=== PATIENT | male | born 1980 | race Caucasian/White ===

== ENCOUNTER 2024-11-11 08:54 | Inpatient (IN) | payer MEDICARE, MEDICAID, SELFPAY ==
[2024-11-11] VITALS (55 sets, daily range): BP systolic 157–197; BP diastolic 72–95; PULSE 66–79; RESP 10–21; TEMP 36.1–36.8; O2SAT 93–100; BMI 30.8
--- NOTE | ~2024-11-11 | XR_ITS ---
Portable chest x-ray Comparison: None Clinical History: End-stage renal disease Findings: Lungs are clear, without focal consolidation or pleural effusion. Cardiomediastinal silho uette is borderline enlarged. Bones and soft tissues are unremarkable. Impression: Clear lungs. Reviewed, dictated and finalized at location . Impression: Clear lungs.
--- NOTE | ~2024-11-11 | XR_ITS ---
Exam: Abdomen 1V HISTORY: Diarrhea COMPARISON: None. TECHNIQUE: Supine images of the abdomen FINDINGS: Bowel gas pattern is nonspecific and non-obstructive. There is no free air or deep sulci. No pathologic calcifications are seen. Lung bases are unremarkable. Bones and soft tissues are unremarkable. IMPRESSION: Nonspecific, nonobstructive bowel gas pattern. Reviewed, dictated and finalized at location A.
--- OUTSIDE RECORDS SUMMARY | 2024-11-11 09:31 | XMS_ITS | CONTINUITY OF CARE DOCUMENT ---
Author Name shant bran Address Unknown Organization [facility] Address [address] [facility] [address] [place] [address] Phone [phone] Care Team Providers Care Search Engineer Name Role Phone Castillo LOCK, Fredi Unavailable Rian Paris MD Unavailable [phone] Dallas Tejada MD Unavailable PROBLEMS Condition Status Date Provider Notes Cardiology examination active Fredi Chong MD Preoperative cardiovascular examination active Fredi Chong MD ESRD on HD. M-W-F Dr Paris active Fredi jama MD Carotid bruit, left active Fredi Chong MD Heart murmur active Fredi Chong MD Mitral regurgitation, moderate active Fredi Chnog MD Tricuspid regurgitation, moderate active Us garry Chong MD ENCOUNTERS Date Type Provider Location Encounter Diag nosis - In-person encounter Office Visit Fredi Chong MD [facility] Mitral regurgitation, moderateTricuspid regurgitation, moderate - In-person encounter Office Visit Fredi Chong MD [facility] Heart murmur - In-person encounter Office Visit Fredi Chong MD [facility] Cardiology examinationPreoperative cardiovascular examinationESRD on HD. M-W-F Dr ParisCarotid bruit, left VITAL SIGNS Date Observation Value Provider Body Mass Index (Ratio) 31.33 kg/m2 Heath Chong MD blood pressure, diastolic 87 mm[Hg] Kristian Hanks blood pressure, systolic 160 mm[Hg] Juju Hanks blood pressure, cuff size regular Cy aleena Hanks respiratory rate E&M 16 /min Cait Hanks pulse rate 88 /min Cait nash oxygen saturation, oximetry 97 % Cait Hanks weight E&M 231 [lb_av] Cait nash height E&M 72 [in_i] Cait nash Body Mass Index (Ratio) 30.92 kg/m2 Heath Chong MD blood pressure, resting Yes More hermanval Holloway pulse rate 98 /min Katt Block blood pressure, diastolic 70 mm[Hg] Br ittany Jewel blood pressure, systolic 118 mm[Hg] Rowan ttany Jewel oxygen saturation, oximetry 98 % Katt Holloway height E&M 72 [in_i] Katt Block weight E&M 228 [lb_av] Katt Block respiratory rate E&M 16 /min Nataly Holloway ALLERGIES No Known Drug Allergies HISTORY OF MEDICATION USE Medication Status Instructions Dates Provider Indications Com ments ACETAMINOPHEN-C ODEINE #3 300-30 MG ORAL TABLET active TK 1 T Q 6 H PRN P Katt Block #60, 15 days supply, Prescribed by SARAH LLANES, Filled 05/15/2019 FUROSEMIDE 80 MG ORAL TABLET active 1 tab daily Katt Block #90, 30 days supply, Filled 06/20/2019 LIDOCAINE-PRILO KENNETH 2.5-2.5 % EXTERNAL CREAM active APPLY TO AV FISTULA BEFORE EACH DIALYSIS Katt Block #30, 15 days supply, Prescribed by SARAH LLANES, Filled 06/24/2019 VITAMIN D (ERGOCALCIFEROL ) 1.25 MG (53535 UT) ORAL CAPSULE active TK 1 C PO 1 TIME A WK Katt Block #4, 28 days supply, Prescribed by RIAN PARIS, Filled 06/29/2019 HYDRALAZINE HCL 50 MG ORAL TABLET active TK 1 T PO TID Katt Block #90, 30 days supply, Prescribed by RIAN PARIS, Filled 07/01/2019 GLIMEPIRIDE 1 MG ORAL TABLET completed TK 1 T PO D - Cait Hanks #30, 30 days supply, Prescribed by RIAN PARIS, Filled 07/01/2019 FUROSEMIDE 40 MG ORAL TABLET active TK 2 TS PO QD Katt Block #60, 30 days supply, Prescribed by RIAN PARIS, Filled 07/01/2019 AMLODIPINE BESYLATE 10 MG ORAL TABLET active TK 1 T PO QPM Katt Block #30, 30 days supply, Prescribed by RIAN PARIS, Filled 07/01/2019 SOCIAL HISTORY Date Observation Value Provider drug use no Fredi Chong MD alcohol use no Fredi Chong MD social history E&M S moking History: Cheryl brown has never smoked. Fredi Chong MD social history reviewed E&M revi ewed - no changes required Fredi Chong MD smoking status Never smoker Fredi Chong MD number of grandchildren Fredi Chong MD U meena Chong MD social history E&M S moking History: Cheryl brown has never smoked. Fredi Chong MD social history reviewed E&M revi ewed - no changes required Fredi Chong MD smoking status Never smoker Cait barron drug use no Fredi Chong MD social history E&M S moking History: Cheryl brown has never smoked. Fredi Chong MD social history reviewed E&M revi ewed - no changes required Fredi Chong MD alcohol use no Katt Holloway smoking status Never smoker Katt billingsley FAMILY HISTORY Family Member Condition Father Family History of Co ngestive Heart Failure: Mother Family History of Co ronary Artery Disease: INSURANCE PROVIDERS Payer name Policy type / Coverage type Dariel red green party ID ROBBY MEDICARE Medicare [id number] [facility] Medicaid 3 [id number] ADVANCE DIRECTIVES Name Date DISCUSSED - NO DECISION MADE TREATMENT PLAN Date Name Performer Cardiology Fredi Chong MD Cardiology:Echo from 03/15/2020 demonstrates a severly enlarged left atrium. Mild-mod TR, MR. LVEF 50%. Murmur is most likely a combination of mitral and tricuspid regurg, have recommended he let us know if he has any changes in breathing and will see him in one year and complete echo. Fredi Chong MD Cardiology:Dialysis Per Dr. Thaddeus gay. Fredi Chong MD Cardiology follow up Fredi phipps MD Cardiology follow up :2/6 systolic ejection murmur, louder on left side. Patient has not been expreiencing symptoms. Will check echo to evaluate Fredi Chong MD Cardiology:Will check carotid US . Fredi Chong MD Cardiology Fredi Chong MD Cardiology:He is asy mptomatic from a cardiac standpoint and i will check an echo or get his latest report H e is clear for surgery l ow risk Fredi Chong MD Date Name Complete Echo Complete Echo Carotid Duplex Bilat eral HISTORY OF PROCEDURES Procedure Date Procedure Name Provider Procedure Notes S tatus EKG Fredi Chong MD completed
--- OUTSIDE RECORDS SUMMARY | 2024-11-11 09:31 | XMS_ITS | Continuity of Care Document ---
Author Organization [facility] Address [address] [place] [address] Phone Care Team Providers Care Stationary Fireman Name Role Phone Rodriguez OD, Jostin Unavailable Unavailable Procedures Procedure Date Office/outpatient Visit, Est Remove Foreign Body From Eye Advance Directives Directive Yes / No Effective Date File Name No Information Encounters Encounter Description Practice Location Reason(s) For Visit Diagnoses Date Provider Providers Copied on Encounter Office/outpat ient Visit, Est [facility], [address] [place] [address] [address], [place], [place], [address], [place] tel:[phone] SEC [facility] No Information 0-200 7 Rodriguez OD Jostin. [address] [facility] , [address], [place], [address], [place]. tel:[phone] [facility], [address] [place] [address] [address], [place], [place], [address], [place] tel:[phone] SEC [facility] No Information 7-200 7 Son Chapman. [address] [facility], [address], [place], [place], [address], [place]. tel:[phone] Family History Family Member Type Diagnosis Age [...]
[2024-11-11 11:26] LABS: Basophils Percent Auto 0.4 % (0.2-1.2); Eosinophils Absolute Auto 0.2 K/mm3 (0-0.3); Eosinophils Percent Auto 2.8 % (0-4.4); Hematocrit 27.9 % (42.0-52.0); Hemoglobin 9.1 g/dL (14.0-18.0); Immature Granulocyte Absolute 0.02 K/mm3 (0.00-0.031); Immature Granulocyte Percent A 0.3 % (0-0.5); Lymphocytes Absolute Auto 0.54 K/mm3 (0.9-3.2); Lymphocytes Percent Auto 8.1 % (18.3-44.2); Mean Corpuscular HGB Conc 32.6 g/dl (32-36); Mean Corpuscular Hemoglobin 33.5 pg (26-34); Mean Corpuscular Volume 102.6 fl (80-100); Mean Platelet Volume 9.4 fl (7.4-10.4); Monocytes Absolute Auto 0.5 K/mm3 (0.1-0.6); Monocytes Percent Auto 7.5 % (2.6-8.5); Neutrophils Absolute Auto 5.4 K/mm3 (1.3-6.7); Neutrophils Percent Auto 80.9 % (45.5-73.1); Platelet Count Result 110 k/mm3 (150-375); Red Blood Count 2.72 M/mm3 (4.6-6.20); Red Cell Distribution Width 14.1 % (11.5-14.5); White Blood Count 6.7 K/mm3 (4.5-10.0)
--- NOTE | 2024-11-11 11:37 | ED_ITS ---
HPI - Nausea/Vomiting/Diarrhea General Chief complaint: Nausea/Vomiting/Diarrhea Stated complaint: diarrhea Time Seen by Provider: 11/11/24 11:29 Source: patient and family Mode of arrival: ambulatory Limitations: no limitations History of Present Illness HPI Narrative: 44 YEARS OLD WHITE MALE CAME TO THE ED FROM HOME BY PRIVATE CAR COMPLAINING OF MASSIVE DIARRHEA DAILY FOR THE LAST 3 DAYS. HE DENIES ANY FEVER, CHILLS, NAUSEA, VOMITING, ABDOMINAL PAIN, CHEST PAIN, SHORTNESS OF BREATH OR BACK PAIN. PATIENT MISSED DIALYSIS ON SATURDAY AND TODAY. DID NOT TAKE HIS BLOOD PRESSURE MEDICATION TODAY. Related Data Allergies Allergy/AdvReac Type Severity Reaction Status Date / Time No Known Allergies Allergy Verified 11/11/24 11:20 Review of Systems 2 Review of Systems: All systems reviewed & are unremarkable except as noted in HPI and below Course Consultations Consultation #1: DR DUARTE Date: 11/11/24 Time: 14:40 Vital Signs Vital signs: Vital Signs Temperature 36.1 C L 11/11/24 08:55 Pulse Rate 75 11/11/24 08:55 Respiratory Rate 18 11/11/24 08:55 Blood Pressure 157/72 H 11/11/24 08:55 Pulse Oximetry 99 11/11/24 08:55 Oxygen Delivery Room Air 11/11/24 08:55 Temperature 36.1 C L 11/11/24 08:55 Pulse Rate 75 11/11/24 14:43 Respiratory Rate 13 11/11/24 14:43 Blood Pressure 179/84 H 11/11/24 14:43 Pulse Oximetry 100 11/11/24 14:43 Oxygen Delivery Room Air 11/11/24 11:16 MDM - Nausea/Vomiting/Diarrhea MDM Narrative Medical decision making narrative: PATIENT CAME TO THE ED WITH MASSIVE DIARRHEA OVER THE LAST 3 DAYS. MISSED DIALYSIS TODAY AND THE PREVIOUS ONE 2 DAYS AGO. VITAL SIGNS STABLE PHYSICAL EXAMINATION SHOWING GENERALIZE WEAK, PALE PATIENT WITH 3+ EDEMA LOWER EXTREMITY BILATERALLY DIALYSIS SHUNT LEFT ARM DIFFERENTIAL DIAGNOSIS INCLUDE DEHYDRATION, ELECTROLYTE IMBALANCE, UNSPECIFIED DIARRHEA. BLOOD WORKUP INCLUDES CBC, CMP SHOWED HEMOGLOBIN 9.1, PLATELET 110, POTASSIUM 5.1, BICARB 18, ANION GAP 24, BUN 71, CREATININE MORE THAN 14, LIPASE 17. DIAGNOSIS: UNSPECIFIED DIARRHEA, MISSED DIALYSIS ADMIT TO HOSPITALIST DISCUSSED WITH DR. DUARTE Differential Diagnosis Differential diagnosis: Likely other ( ABOVE) Medical Records Attestation: I reviewed the patient's medical records. Lab Data Attestation: I reviewed the patient's lab results. 11/11/24 11:15 11/11/24 11:15 Labs: Lab Results 11/11/24 Range/Units 11:15 WBC 6.7 (4.5-10.0) K/mm3 RBC 2.72 L (4.6-6.20) M/mm3 Hgb 9.1 L (14.0-18.0) g/dL Hct 27.9 L (42.0-52.0) % MCV 102.6 H (80-100) fl MCH 33.5 (26-34) pg MCHC 32.6 (32-36) g/dl RDW 14.1 (11.5-14.5) % Plt Count 110 L (150-375) k/mm3 MPV 9.4 (7.4-10.4) fl Immature Gran % (Auto) 0.3 (0-0.5) % Neut % (Auto) 80.9 H (45.5-73.1) % Lymph % (Auto) 8.1 L (18.3-44.2) % [place] % (Auto) 7.5 (2.6-8.5) % Eos % (Auto) 2.8 (0-4.4) % Baso % (Auto) 0.4 (0.2-1.2) % Lymph # (Auto) 0.54 L (0.9-3.2) K/mm3 [place] # (Auto) 0.5 (0.1-0.6) K/mm3 Eos # (Auto) 0.2 (0-0.3) K/mm3 Baso # (Auto) 0.0 (0.0-0.1) K/mm3 Abs Immat Gran (auto) 0.02 (0.00-0.031) K/mm3 Absolute Neuts (auto) 5.4 (1.3-6.7) K/mm3 Absolute Nucleated RBC 0.000 (0.0-0.012) K/mm3 Nucleated RBC % 0.0 (0.0-0.2) % Sodium 136 L (137-145) mmol/L Potassium 5.1 H (3.4-5.0) mmol/L Chloride 94 L (98-107) mmol/L Carbon Dioxide 18 L (22-30) mmol/L Anion Gap 24 H (4-12) mmol/L BUN 71 H (9-20) mg/dL Creatinine > 14.00 H (0.7-1.3) mg/dL Estim Creat Clear Calc 8 ml/min Estimated GFR 4 L (59 - ) Glucose 87 (65-110) mg/dL Calcium 9.6 (8.4-10.2) mg/dL Total Bilirubin 0.4 (0.2-1.3) mg/dL AST 17 (17-59) U/L ALT 18 (6-50) U/L Alkaline Phosphatase 96 (38-126) U/L Total Protein 8.0 (6.3-8.2) g/dL Albumin 4.8 (3.5-5.1) g/dL Lipase 17 L (23-300) U/L Critical Care Time Critical Care Time Critical Care Time: No Discharge Plan Discharge Clinical Impression: Diarrhea, Hemodialysis patient, Missed dialysis Patient Disposition: Still a Patient Condition: Guarded Prognosis Patient Language: Portuguese Follow-up/Referrals: Sissy,Micah Webber MD [Non-Staff] -
[2024-11-11 13:01] LABS: Alanine Aminotransferase 18 U/L (6-50); Albumin Level 4.8 g/dL (3.5-5.1); Alkaline Phosphatase 96 U/L (38-126); Anion Gap 24 mmol/L (4-12); Aspartate Amino Transferase 17 U/L (17-59); Bilirubin,Total 0.4 mg/dL (0.2-1.3); Blood Urea Nitrogen 71 mg/dL (9-20); Calcium 9.6 mg/dL (8.4-10.2); Carbon Dioxide 18 mmol/L (22-30); Chloride 94 mmol/L (98-107); Estimated CRCL calculation 8 ml/min; Estimated Glomerular Filt Rate 4; Glucose 87 mg/dL (65-110); Lipase 17 U/L (23-300); Potassium 5.1 mmol/L (3.4-5.0); Sodium 136 mmol/L (137-145)
--- OUTSIDE RECORDS SUMMARY | 2024-11-11 13:47 | XMS_ITS | Continuity of Care Document ---
Author Organization formerly [facility] Address [address] [facility] [address] [facility] [address] [place] [address] Phone Care Team Providers Care Physician Assistant Psychiatry Name Role Phone Rodriguez OD, Jostin Unavailable Unavailable Procedures Procedure Date Office/outpatient Visit, Est Remove Foreign Body From Eye Advance Directives Directive Yes / No Effective Date File Name No Information Encounters Encounter Description Practice Location Reason(s) For Visit Diagnoses Date Provider Providers Copied on Encounter Office/outpat ient Visit, Est [facility], [address] [place] [address] [address], [place], [place], [address], [place] tel:[phone] SEC [facility] No Information 0-200 7 Rodriguez OD Jostin. [address] [facility] , [address], [place], [address], [place]. tel:[phone] [facility], [address] [place] [address] [address], [place], [place], [address], [place] tel:[phone] SEC [facility] No Information 7-200 7 Son Chapman. [address] [facility], [address], [place], [place], [address], [place]. tel:[phone] Family History Family Member Type Diagnosis Age At Onset No Information Payers Payer name Insurance type Covered green party ID Authoriza tion(s) No Information Social [...]
--- OUTSIDE RECORDS SUMMARY | 2024-11-11 13:47 | XMS_ITS | Encounter Summary ---
Author Organization [facility] Health Address [address] [place] [address] Care Team Providers Care Retail Agent Name Role Phone Dallas Tejada MD Primary Care Provider [phone] Naomi Kaye MD Unavailable Dallas Tejada MD Unavailable [phone] Encounter Details Date Type Department Care Team (Late Contact Info) Description 02/09/2019 [facility] [address] [place] [address] [place] [address] [facility] [address] [place] [address] Social History Tobacco Use Types Packs/Day Years Used Date Smoking Tobacco: Former Cigarettes Q uit: 02/09/2018 Smokeless Tobacco: Never Alcohol Use Standard Drinks/Week Comments No 0 (1 standard drink = 0.6 oz pur e alcohol) Sex and Gender Information Value Date Recorded Sex Assigned at Not on file Legal Sex Male 1:41 PM CDT Gender Identity Not on file Sexual Orientation Not on file documented as of this encounter Plan of Treatment Upcoming Encounters Date Type Department Care Team (Late Contact Info) Description 05/25/2025 2:15 PM [employer]ER [employer] SPECIALIST Appointment [facility] Health Vascular Services [address] [facility], [address] [place] [address] documented as of this encounter Visit Diagnoses Not on filedocumented in this encounter Care Teams Retail Agent Relationship Specialty Start Date End Date Dallas Tejada MD [address] [facility] [address] [place] [address] PCP - General Internal Medicine 02/18/19 Naomi Kaye MD [address] [facility] [address] [place] [address] PCP - [facility] 07/22/24 10/19/24 Dallas Tejada MD [address] [facility] [address] [place] [address] PCP - [facility] 10/20/24 documented as of this encounter
--- OUTSIDE RECORDS SUMMARY | 2024-11-11 13:47 | XMS_ITS | CONTINUITY OF CARE DOCUMENT ---
Author Name shant bran Address Unknown Organization [facility] Address [address] [facility] [address] [place] [address] Phone [phone] Care Team Providers Care Trolley Car Operator Name Role Phone Castillo LOCK, Fredi Unavailable [phone] Rian Paris MD Unavailable Dallas Tejada MD Unavailable PROBLEMS Condition Status Date Provider Notes Cardiology examination active Fredi Chong MD Preoperative cardiovascular examination active Fredi Chong MD ESRD on HD. M-W-F Dr Paris active Fredi jama MD Carotid bruit, left active Fredi Chong MD Heart murmur active Fredi Chong MD Mitral regurgitation, moderate active Fredi Chong MD Tricuspid regurgitation, moderate active Us garry Chong MD ENCOUNTERS Date Type Provider Location Encounter Diag nosis - In-person encounter Office Visit Fredi Chong MD [facility] Mitral regurgitation, moderateTricuspid regurgitation, moderate - In-person encounter Office Visit Fredi Chong MD [facility] Heart murmur - In-person encounter Office Visit Fredi Chong MD [facility] Cardiology examinationPreoperative cardiovascular examinationESRD on HD. [...] 06/24/2019 VITAMIN D (ERGOCALCIFEROL ) 1.25 MG (76404 UT) ORAL CAPSULE active TK 1 C [...] Policy type / Coverage type Dariel red democrat ID ROBBY MEDICARE Medicare [id number] [facility] Medicaid 3 [id number] ADVANCE DIRECTIVES Name Date DISCUSSED - NO [...]
--- OUTSIDE RECORDS SUMMARY | 2024-11-11 13:47 | XMS_ITS | Clinical Summary ---
Author Organization [facility] Address [address] [place] [address] Care Team Providers Care Warehouse Shipping Clerk Name Role Phone Dallas Tejada MD Primary Care Provider [phone] Dallas Tejada MD Unavailable [phone] Source Comments [facility],non-owned Affiliates and Associated Physician Practices is amultiple site organization consisting of ambulatory clinics and hospital sitesin [place], [place], [place] and [place]. This disclosure is being madepursuant to the Care Everywhere program and may not contain all information available regarding this patient. Last updated 18.[facility] Allergies No known active allergies Medications * Be aware that medications may not be up to date on this document. Alwaysverify current medications with the patient. hydrALAZINE (APRESOLINE) 50 MG tablet Take 1 (one) tablet by mouth 3 times daily Active acetaminophen (TYLENOL) 500 MG tablet Take 1 (one) tablet by mouth every 4 hours as needed for Fever or Pain Maximum allowable Acetaminophen amount = 4 Grams (4000 mg) / 24 hours. Active vitamin D, ergocalciferol, (DRISDOL) 42178 units capsule Receives at DU 3 04/01/20 19 Active furosemide (Lasix) 80 MG tablet Take 1 (one) tablet by mouth 2 times daily Active sevelamer carbonate (RENVELA) 800 MG Take 4 (four) tablets by mouth 3 times daily with meals 2 with snacks 11 05/20/20 19 Active polyethylene glycol 3350 (MIRALAX) 17 GM/SCOOP powder Acti ve cyclobenzaprine (FLEXERIL) 5 MG tablet Take 2 (two) tablets by mouth at bedtime Active amLODIPine (Norvasc) 10 MG tablet Take 1 (one) tablet by mouth once daily 02/24/20 22 Active clonazePAM (KlonoPIN) 0.5 MG tablet Take 1 (one) tablet by mouth at bedtime 07/07/20 21 Active midodrine (Proamatine) 5 MG tablet 03/21/20 22 Active rOPINIRole (Requip) 0.25 MG tablet Take 1 (one) tablet to 2 (two) tablets by mouth at bedtime 04/25/20 22 Active tamsulosin (Flomax) 0.4 MG capsule Take 1 (one) capsule by mouth at bedtime 04/27/20 22 Active polyethylene glycol (Golytely) 236 g solution Drink 1/2 of the bowel prep at 6 pm the night before test. Finish the prep at 5 am the morning of colonoscopy. 4000 mL 01/09/20 24 Active metoprolol succinate XL 24hr (Toprol XL) 25 MG tablet Take 0.5 (one-half) tablet by mouth once daily 45 tablet 3 02/27/20 24 Active rosuvastatin (Crestor) 10 MG tablet Take 1 (one) tablet by mouth at bedtime 90 tablet 3 02/27/20 24 Active blood glucose test stripIndications:Co ntrolled type 2 diabetes mellitus with chronic kidney disease on chronic dialysis, without long-term current use of insulin ([facility]),Grade II diastolic dysfunction,Nonobst ructive atherosclerosis of coronary artery,ESRD (end stage renal disease) ([facility]),Encounter regarding vascular access for dialysis for end-stage renal disease ([facility]),History of tobacco use,Pre-transplant evaluation for kidney transplant Use 1 (one) strip as directed 100 strip 3 05/12/20 24 Active lancetsIndications: 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, without long-term current use of insulin ([facility]),Grade II diastolic dysfunction,Nonobst ructive atherosclerosis of coronary artery,ESRD (end stage renal disease) ([facility]),Encounter regarding vascular access for dialysis for end-stage renal disease ([facility]),History of tobacco use,Pre-transplant evaluation for kidney transplant Use 1 (one) Each once daily 100 Each 05/12/20 24 Active aspirin (Aspirin) 81 MG chew tablet Take 1 (one) tablet by mouth once daily Active clopidogrel (plaVIX) 75 MG tablet Take 1 (one) tablet by mouth once daily 90 tablet 06/11/20 24 Active Active Problems Problem Noted Date Diagnosed Date S/P drug eluting coronary stent placement 2023 Coronary artery disease invo [place] coronary artery of [place] heart with angina pectoris 05/25/2024 Nonobstructive atherosclerosis of coronary arter y 02/27/2024 Diabetes mellitus type II, controlled 02/27/2024 History of tobacco use 02/27/2024 Left ventricular hypertrophy 02/27/2024 Grade II diastolic dysfunction 02/27/2024 Moderate tricuspid regurgitation 02/27/2024 Vitamin D deficiency 02/27/2024 Encounter regarding vascular access for dialysis for end-stage renal disease 05/27/2023 Pre-transplant evaluation for kidney transplant 07/30/2019 Overview (05/25/2024): Images from the original note were not included. Rj Cole 1980 Listing date: Referring Editorial Writer: Sharon Farnsworth Dialysis Info: Type: HD M,W,F Time: 03/10/2019 Blood Type: O POS Body mass index is 31.65 kg/m . ALERTS: pt will need FLOmax post txp ALERTS: pt has been using midodrine prn on dialysis this December - January 2024 (BPs requested) Social Work Nurse: pt seen by Dr. Donato on 05/12/2024 ESRD 2/2 DM2 and HTN Past Medical History: Diagnosis Date Anuria q3 days, very little/could fill up bottom of cup CHF (congestive heart failure) ([facility]) Coronary artery disease seen on [facility] completed here on 05/25/2020. 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, was on metformin x 1 week, diet controlled diarrhea Esophageal reflux ESRD on hemodialysis ([facility]) BEN ([facility]) [place] M, W, F 08/11/19 History of blood transfusion 2018 when found out kidney failure Hypertension dx at age 38 Kidney stones twice in his early 20s, passed on own Kidney trouble Neuropathy Oliguria PVD (peripheral vascular disease) ([facility]) c/o claudication sometimes but thinks it's [place] Past Surgical History: Procedure Laterality Date A-V FISTULA REVISION/REPAIR 04/23/2019 REVISE LEFT ARTERIOVENOUS WITH LIGATION OF BRANCHES UNDER ULTRASOUND GUIDANCE A-V SHUNT CREATION Left 02/23/2019 Left; LEFT UPPER ARM ARTERIOVENOUS FISTULA Cardiac Catherization 05/25/2020 transplant prep- no findings Cardiac Catherization N/A 04/27/2024 N/A; Left Heart Cath Cardiac Catherization N/A 04/27/2024 N/A; iFR COLONOSCOPY N/A 01/28/2024 N/A; COLONOSCOPY SCREEN--dialysis pt---stat k+ OTHER SURGERY all teeth removed Renal Biopsy 2018 [facility] [place] Retinal Detachment Repair Bilateral Social History Socioeconomic History Marital status: Single Spouse name: Not on file Number of children: Not on file Years of education: Not on file Highest education level: Not on file Occupational History Not on file Tobacco Use Smoking status: Former Types: Cigars Quit date: 02/09/2018 Years since quittin.2 Smokeless tobacco: Never Tobacco comments: a couple cigars on a weekend when he drank, denies being a heavy drinker, maybe only drank once a month, quit in 2017 Last cigar use beginning of November 2023 Vaping Use Vaping status: Never Used Substance and Sexual Activity Alcohol use: No Drug use: No Sexual activity: Not Currently Other Topics Concern Not on file Social History Narrative Not on file Social Determinants of Health Financial Resource Strain: Not on file Food Insecurity: Not on file Transportation Needs: Not on file Stress: Not on file Housing Stability: Not on file Transplant Surgery Clinic Appt w/: Dr. Machado Date: 01/21/2024 A/P: Introductory: is a 43 year old with T2DM as a primary cause of kidney disease and HTN is the secondary diagnosis. Dialysis was initiated in 03/10/2019. The patient has NOT had previous transplants. ABO is O POSITIVE (+). He HAS potential living donors. Medically, He is in FAIR condition. The cardiac workup is NOTcomplete. He denies angina, dyspnea, or orthopnea. Other significant medical history includes the following: HTN Obesity Family history is not significant for malignancy. Heconfirms he understands the risks and benefits of kidney transplantation and is amenable to proceeding with evaluation. Assessment/Plan: 43 yo man with T2DM as the etiology og ESRD on HE since 2019 HTN Mild calcifications of the iliac vessels will need additional imaging annually to assess for advancing vessel disease that renders him non-transplantable Complete all phases of the transplant evaluation Present to [facility] for approval/denial/ versus more testing to be done by the patient as determined by the Committee I spent 30 minutes with discussing the risks and benefits of kidney transplant including the need for lifelong immunotherapy, the need for the patient to be compliant with the immunotherapy, the need for a lifelong relationship with a health care provider and the need to have labs checked frequently. We also talked about the risks of surgery including but not limited to the following: Anesthetic concerns including heart attack, stroke, or Need for endotracheal intubation and possibility of prolonged intubation Intraoperative and postoperative bleeding Postoperative hematoma or wound infection requiring return to OR Renal artery and vein thrombosis requiring return to OR and possible explantation Ureteric stricture or leak requiring interventional procedures and/or reoperation Delayed graft function Risk of primary nonfunction Increased risk of infection and malignancy remotely We discussed the possibility of receiving an HCV+ organ. We discussed the antiviral treatment and need for compliance to achieve SVR; the cure rate of 98% with DAA and the possibility of repeating a course if not cured; and the possibility of complications prior to and while undergoing treatment. These include headaches, nausea, cryoglobulinemia and SAL, and encephalitis as well as possible hepatitis-induced injury to the graft. At this time the patient is amenable. We discussed the possibility of receiving an increased risk organ. We discussed the risk factors that place kidneys in this category and the relative risk of transmission from an increased risk donor. We compared that risk with the risk of remaining on dialysis and the risk of hepatitis transmission on dialysis. At this time the patient is amenable. We discussed the possibility of receiving an organ with a KDPI of >85%. We discussed the lower mean survival for these organs and the increased rates of delayed graft function. At this time the patient is amenable. I believe Mr. Cole is a Good candidate for kidney transplant. At this time the patient needs the following prior to committee presentation: Complete all phases of the transplant evaluation process All listing decisions will be made in the listing committee and are final. Transplant Surgery Clinic Appt w/: Dr. Stein Date: 06/07/2020 A/P: Assessment & Plan: This is a 39 year old male with ESRD secondary to DM. He is a good candidate for renal transplant pending completion of his transplant evaluation. He was made aware of the fact that he probably will need insulin post transplant due to the anti-rejection medications. Needs: 1. Repeat ECHO (07/01/20) as his prior ECHO showed an RVSP of 48. 2. VCUG Discussed the different types of donors: standard criteria, extended criteria, increased risk donors and the use of Hepatitis C positive donors with treatment of the Hep C post transplant (with 100% SVR's in our centers experience). Also discussed living donors and he will talk to his sister. Final listing decision will be made in multi-disciplinary patient selection committee. Nephrology Clinic Appt w/: Dr. Araiza Rub Date: 01/21/2024 A/P: HPI: Rj Cole is a 43 year old with past medical history of ESKD due to DM and HTN; now on chronic HD M,W,F about 1 year (started 2018) who presented for transplant candidate evaluation. Patient underwent a kidney biopsy on 12/22/2018 and showed medullary parenchyma with prominent fibrosis and no glomeruli sampled. Patient was previously evaluated for pulmonary HTN, his pulmonary arterial pressure was 53 mmHg on 07/01/20. Despite trying to decrease his dry weight his pulmonary arterial pressure was found 57 mmHg on 12/30/2020. Patient is presented today for volume status assessment. Echo on 01/07/24 Left Ventricle: Left ventricle size is normal. Normal wall thickness. Normal systolic function. EF by 2D Reyes biplane is 56%. Normal wall motion. Abnormal diastolic function. Elevated mean left atrial pressure. Tissue Doppler velocity is reduced. Right Ventricle: Right ventricle size is normal. Low normal systolic function. Tricuspid Valve: Mild to moderate regurgitation. The pulmonary artery systolic pressure is moderately elevated. Estimated sPAP is 57.0 mmHg. Mitral Valve: Mild regurgitation with a centrally directed jet. Dry weight planned to be 99 kg He is 110 kg today. Interval History: The patient did note that he was volume overloaded today ( at least 7 kg above dry weight). But he mentioned that he is not adherent to fluid restriction, and that challenging his dry weight usually results in hypotension. Assessments and Recommendations: Rj Cole was seen today for kidney transplant evaluation revisit. 1) ESKD on Hemodialysis - Cause of ESKD: Most likely due to HTN/DM - On HD since 03/10/19. He is currently on MWF hemodialysis in [facility] 2) Cardiovascular Disease - Due to the risk of CAD in patients with ESKD, Cardiac Cath was performed on 05/26/20 which showed non obstructive Coronary artery disease. Medical management of nonobstructive CAD and aggressive modification of atherosclerotic risk factors is planned. - He will be due for a repeat C next year according to protocol. 3) Hypertension - BP level is 168/94 mmHg - On Amlodipine 10 mg, Hydralazine 50 mg TID and Furosemide 80 mg BID - BP is uncontrolled due to volume overload. 4) Hypervolemia and Pulmonary Hypertension - Patient was previously evaluated for pulmonary HTN, his pulmonary arterial pressure was 53 mmHg on 07/01/20. Despite trying to decrease his dry weight his pulmonary arterial pressure was found 57 mmHg on 12/30/2020. - Even though patient is volume overloaded today, at the time the echo was done, it seemed that his IVC was collapsing and that he was not volume overloaded at the time the echo was done (IVC diameter is less than or equal to 21 mm and decreases greater than 50% during inspiration; therefore the estimated right atrial pressure is normal (~3 mmHg)). I think he needs to be dialyzed again to dry weigh and referred to pulmonary hypertension clinic before proceeding. 5) Hematological disorders - Anemia of kidney disease - Hgb 10.5 g/dL on 06/07/20 - Management per Dr. Farnsworth. 5) CKD Bone and Mineral Disease - Ca, Phos: at goal. - PTH is below goal. 6) Infections - Viral hepatitis markers negative. Anti-HBs 23 - CMV IgG (+) and EBV IgG antibody (+) 7) Immunological Assessment - History of sensitization: (-), Blood transfussion (-), History of failed kidney transplant (-) - PRA screening will be performed - HLA typing will be performed Cristiane Valentine MD Nephrology Clinic Appt w/: Dr. Mcrae Date: 06/07/2020 A/P: Assessments and Recommendations: Rj Cole was seen today for kidney transplant evalution Risks and benefits of transplant were discussed with the patient. We discussed living kidney transplant, high kdpi, hepatitis c kidney. Patient thinks his sister may donate. We discussed the importance of medications, lab draws and clinic. He understands that he will need more insulin after transplant. He also know that there is a chance that the disease can recur in the transplant kidney. He will repeat his echo post dialysis to evaluate the elevated rvsp. Will schedule a VCUG given the patient's urinary symptoms. All questions and concerns were addressed. The patient will be presented to the multidisciplinary committee for listing once workup is complete. Other Consults: Cardiology: 02/27/2024 scheduled with Trenton Shaw NP Assessment and Plan: Rj Cole is a 43 year old year old male with the following diagnoses presenting to [facility] for follow up/evaluation of Nonobstructive atherosclerosis of coronary artery [I25.10] Impression: Nonobstructive atherosclerosis of coronary artery (primary encounter diagnosis) Pre-transplant evaluation for kidney transplant Left ventricular hypertrophy Grade II diastolic dysfunction Moderate tricuspid regurgitation ESRD on hemodialysis ([facility]) Controlled type 2 diabetes mellitus with other specified complication, without long-term current use of insulin ([facility]) History of tobacco use NYHA Class I Plan: Patient Instructions We will start metoprolol succinate 12.5mg once daily for your heart function. We are aiming to reduce your heart rate to the 60s to give your heart more time for filling. Please start taking rosuvastatin 10mg once daily at night for your cholesterol and heart disease. We will repeat your heart catheterization in the context of your shortness of breath with activity and the high levels of calcium reported on your CT scan. We will defer to nephrology to manage your anti-hypertension agents, as it fluctuates so much with your dialysis sessions. We will setup follow up with you after the cath is done. Additional notes: ESRD on HD started Takes midodrine on HD days if needed Editorial Writer : Sharon Farnsworth [facility] 05/2020 with nonobstructive CAD, mild disease in mLAD Never started on statin therapy, LDL 70 12/2023 ASCVD: CT Calcium (as part of stress test) 02/06/2024 with calcium score in the left main artery 302.4, LAD of 574.0, LCX 53.4and HAD9761.6. HTN + DMT2 history with end organ damage: LVH/CM, diabetic retinopathy, ESRD on HD Orders Placed This Encounter CBC W/O DIFFERENTIAL Standing Status: Future Standing Expiration Date: 03/23/2025 Order Specific Question: Release to patient Answer: Immediate RENAL FUNCTION PANEL Standing Status: Future Standing Expiration Date: 03/23/2025 Order Specific Question: Release to patient Answer: Immediate MAGNESIUM BLOOD Standing Status: Future Standing Expiration Date: 03/23/2025 Order Specific Question: Release to patient Answer: Immediate LIPOPROTEIN A Standing Status: Future Standing Expiration Date: 03/29/2025 Order Specific Question: Release to patient Answer: Immediate Cath Case Request: Left Heart Cath Standing Status: Standing Number of Occurrences: 1 Standing Expiration Date: 02/26/2025 Order Specific Question: Case Classification Answer: Elective > 5 days [1] DISCONTD: rosuvastatin (Crestor) 20 MG tablet Sig: Take 1 (one) tablet by mouth at bedtime Dispense: 90 tablet Refill: 3 metoprolol succinate XL 24hr (Toprol XL) 25 MG tablet Sig: Take 0.5 (one-half) tablet by mouth once daily Dispense: 45 tablet Refill: 3 rosuvastatin (Crestor) 10 MG tablet Sig: Take 1 (one) tablet by mouth at bedtime Dispense: 90 tablet Refill: 3 Chief Complaint: Kidney transplant evaluation History of Present Illness: Rj Cole is a 43 year old year old male with past medical history significant for HTN, DMT2 (dx age 28, not on insulin), bilateral eye diabetic retinopathy s/p corrective surgery, ESRD on HD, nonobstructive CAD ([facility] 05/2020), HLD, BPH, RLS, history of tobacco use. He was last seen in the [facility] by Dr Garg on 05/10/2020 for kidney transplant evaluation. Today, he denies CP, lightheadedness, syncope, LOC, falls, orthopnea, PND. Reports SOB with inclines and stairs. Regarding activities, he is able to walk and complete all ADLs and IADLs individually. Feels likes over the past 5 years slight decline, reports losing access to inside exercise 2/2 insurance changes, increased SOB. He reports correcting his DM with diet. He no longer smokes tobacco products. EKG/Monitor Data TTE/KEVON ECHO COMPLETE Result Date: 01/07/2024 Left Ventricle: Left ventricle size is normal. Normal wall thickness. Normal systolic function. EF by 2D Reyes biplane is 56%. Normal wall motion. Abnormal diastolic function. Elevated mean left atrial pressure. Tissue Doppler velocity is reduced. Right Ventricle: Right ventricle size is normal. Low normal systolic function. Tricuspid Valve: Mild to moderate regurgitation. The pulmonary artery systolic pressure is moderately elevated. Estimated sPAP is 57.0 mmHg. Mitral Valve: Mild regurgitation with a centrally directed jet. TTE 04/20/2022 Summary The left ventricle is normal size. Left ventricular systolic function is normal with an ejection fraction by Biplane Method of Discs of 62 %. There is mild concentric left ventricular hypertrophy. The left ventricular diastolic function is abnormal (Grade II), consistent with elevated left ventricle filling pressures. left atrial enlargement. TTE 07/01/2020 Summary There is moderate to severe concentric left ventricular hypertrophy. The left ventricle is moderately increased in size. Left ventricular systolic function is normal with an ejection fraction by Biplane Method of Discs of 56 %. Left ventricular segmental wall motion is normal. The left ventricular diastolic function is indeterminate. The left atrium is severely enlarged. There is mild mitral regurgitation. The right ventricular cavity size is moderately enlarged. Mildly reduced right ventricular systolic function. There is moderate tricuspid regurgitation. Mild pulmonary hypertension, estimated pulmonary arterial systolic pressure is 53 mm Hg. Stress Test STRESS TEST Pharm-Lexiscan (Regadenoson) Result Date: 02/07/2024 ECG: The ECG was not diagnostic due to failure to achieve 85% maximal predicted target heart rate. NM MYOCARD PERF REST STRESS Result Date: 02/06/2024 ... CT Calcium score: Calcium scoring to reveal subtle calcification with calcium score in the left main artery 302.4, LAD of 574.0, LCX 53.4and QVC3958.6. Total calcium score is 2473.4. According to MCGILL Risk Score Calculator (https://www.mcgill-nhlbi.org/Calcium/input.aspx) , this is consistent with 99th percentile for age and race matched control. ... Impression: 1. No evidence of myocardial infarction or stress-induced ischemia. 2. Mild global hypokinesia with calculated left ventricular ejection fraction of 42%. 3. Total Calcium score is 99th , consistent with percentile for age and race matched control. 4. Enlarged left ventricle. > Dictated by Rosy Florian MD (Women Specialist) 02/06/2024 11:30 AM ICarter MD have personally reviewed and interpreted this examination/study. > Interpreting Provider: Carter Mcgregor MD on 02/06/2024 5:51 PM ECHO STRESS DOBUTAMINE Result Date: 01/07/2024 Left Ventricle: Left ventricle is mildly dilated. Low normal systolic function with a visually estimated EF of 50 - 55%. ECG: The ECG was negative for ischemia. Left ventricle at peak stress: Size is normal. Systolic function is normal. Wall motion is normal. Sensitivity decreased (unable to achieve target HR); no evidence of ischemia at achieved workload. Catherization [facility] 05/25/2020 HEMODYNAMIC FINDINGS: LV:148/28 mm Hg AO: 144/75 mm Hg ANGIOGRAPHY: i. Left main: Angiographically normal vessel. LM divides into LAD and LCx. ii. LAD: Proximal LAD has no significant disease. Mid LAD had mild focal stenosis up to 30% stenosis. Distal LAD has mild diffuse disease. There are four diagonal branches which are small caliber without angiographically significant disease. iii. LCx: Proximal LCx has no significant disease. There is moderate caliber branching OM branch with mild diffuse disease in the proximal part. True LCx is dimunitive vessel that runs in the AV groove. iv. RCA: Proximal RCA has no significant disease. Mid RCA has mild diffuse disease. Distal RCA has trival plaque. Distal RCA divides in to PDA and PL branches. DOMINANCE: Right DIAGNOSTIC INTERPRETATIONS: Non obstructive Coronary artery disease. RECOMMENDATIONS AFTER DIAGNOSTIC CATHETERIZATION: Medical management of nonobstructive CAD. Aggressive modification of atherosclerotic risk factors. Other Imaging CT ABDOMEN AND PELVIS NON IV CONTRAST Result Date: 01/07/2024 Impression: 1.Moderate atherosclerotic calcification. 2.Nonspecific small volume ascites and mesenteric/ retroperitoneal stranding/edema. Trenton Shaw, PRIVATE EQUITY ANALYST-CONTRACT [facility] Pertinent Previous Committee Presentations: [facility] notes: 05/10/2022 Committee Discussion Details: Pt's case presented at [facility] today to discuss his candidacy for txp at this time. Team aware pt has been in evaluation for a while, finally got his RVSP down below our criteria but now pt with no adequate post support until the beginning of the year. Per team, ok to close until pt has adequate support in place for txp. Evaluation closed Labs: 01/07/2024 PTH: 239.9 A1c: 4.9 Glucose: 76 GFR: 8 PSA: n/a d/t age Serologies: +HepBsAb, all others negative (recommend Hep A vaccination) CMV Igg: Negative EBV Igg: Positive Varicella: Immune MMR: Not immune/+-- (recommend vaccination) Toxo: 3.7 Strongyloides: 0.6 Albumin: 4.0 Tox Screen: all negative PRA: Class 1 Class 2: 0,0 Oxalate: 9.1 Vit D: 19.6 C-peptide: 5.5 Platelet counts from [facility]: 07/31/2023 09/04/2023 10/02/2023 10/30/2023 12/04/2023 01/06/2024 Latest Reference Range & Units 02/18/19 20:11 10/01/19 08:58 05/25/20 07:49 06/07/20 15:05 01/07/24 12:28 Eosinophils % 0.0 - 7.0 % 2.9 9.5 (H) Eosinophils % 0.0 - 6.0 % 3.5 5.3 6.6 (H) Eosinophils Absolute 0.00 - 0.60 x10E9/L 0.13 0.35 Eosinophils Absolute 0.00 - 0.45 10 3/uL 0.19 0.26 0.31 Eosinophil counts from [facility]: records scanned in under media 07/31/2023 09/04/2023 10/02/2023 10/30/2023 12/04/2023 01/06/2024 WBCs from [facility]: 07/31/2023 09/04/2023 10/02/2023 10/30/2023 12/04/2023 Reviewed Hepatitis vaccination: Hepatitis A negative and requires vaccination, Pt not made a decision to obtain vaccination Hepatitis B positive due to vaccine, see vaccination records below Recent Labs Component Name 01/07/24 1228 HAVAB Negative HBVSAB 20.5* HEPBCAB Non-reactive HEPBSAG Non-reactive Hepatitis B vaccination records: Kidney bx: ECHO: 01/07/2024 (will need to repeat d/t elevated RVSP) Interpretation Summary Left Ventricle: Left ventricle size is normal. Normal wall thickness. Normal systolic function. EF by 2D Reyes biplane is 56%. Normal wall motion. Abnormal diastolic function. Elevated mean left atrial pressure. Tissue Doppler velocity is reduced. Right Ventricle: Right ventricle size is normal. Low normal systolic function. Tricuspid Valve: Mild to moderate regurgitation. The pulmonary artery systolic pressure is moderately elevated. Estimated sPAP is 57.0 mmHg. Mitral Valve: Mild regurgitation with a centrally directed jet. Study Details Study quality was adequate. A complete 2D, color Doppler, spectral Doppler and M-mode echocardiogram was performed. The apical, parasternal, subcostal and suprasternal views were obtained. Definity ultrasound enhancing agent used. Patient exhibited sinus rhythm. Technical difficulties due to patient's body habitus. Myocardial Findings Left Ventricle Left ventricle size is normal. Normal wall thickness. Normal systolic function. EF by 2D Reyes biplane is 56%. Normal wall motion. Abnormal diastolic function. Elevated mean left atrial pressure. Tissue Doppler velocity is reduced. Right Ventricle Right ventricle size is normal. Low normal systolic function. Left Atrium Left atrium size is normal. Left atrium volume index is 57.5 mL/m2. Right Atrium Right atrium size is normal. IVC/SVC IVC diameter is less than or equal to 21 mm and decreases greater than 50% during inspiration; therefore the estimated right atrial pressure is normal (~3 mmHg). Mitral Valve Valve structure is normal. No restricted motion. Mild regurgitation with a centrally directed jet. No stenosis. Tricuspid Valve Valve structure is normal. No restricted motion. Mild to moderate regurgitation. The pulmonary artery systolic pressure is moderately elevated. Estimated sPAP is 57.0 mmHg. No stenosis. Aortic Valve Valve structure is trileaflet. No restricted motion. No regurgitation. No stenosis. Pulmonic Valve Valve structure is normal. No restricted motion. Mild regurgitation with a centrally directed jet. No stenosis. Aorta Normal sized sinus of Valsalva (aortic root) and ascending aorta. Pericardium No pericardial effusion. Dimensions Left Ventricle LV biplane EF 56 % (Range: 52 - 72) LV A2C EF 51 % (Range: 48 - 76) LV A4C EF 51 % (Range: 46 - 74) LVIDd 6.2 cm (Range: 4.2 - 5.8) LV LVIDd index 2.63 cm/m2 (Range: 2.2 - 3.0) LVIDs 5.33 cm (Range: 2.5 - 4.0) LVIDs index 2.26 cm/m2 (Range: 1.3 - 2.1) LV EDV BP 270.193 mL (Range: 62 - 150) LV EDV index BP 114.7 mL/m2 (Range: 34 - 74) LV EDV A2C 284.284 mL (Range: 59 - 175) LV EDV index A2C 120.65 mL/m2 (Range: 31 - 87) LV EDV A4C 247.448 mL LV EDV index A4C 105.02 mL/m2 (Range: 37 - 93) LV EDV 2D 193.751 mL (Range: 62 - 150) LV EDV index 2D 82.23 mL/m2 (Range: 34 - 74) LV ESV BP 120.154 mL (Range: 21 - 61) LV ESV index BP 51 mL/m2 (Range: 11 - 31) LV ESV A2C 120.556 mL (Range: 15 - 75) LV ESV index A2C 51.16 mL/m2 (Range: 9 - 37) LV ESV A4C 139.41 mL (Range: 22 - 78) LV ESV index A4C 59.17 mL/m2 (Range: 12 - 40) LV ESV 2D 136.853 mL (Range: 21 - 61) LV ESV index 2D 58.08 mL/m2 (Range: 11 - 31) LVPWd 1.25 cm (Range: 0.6 - 1) Fractional Shortening 2D 14 % (Range: 28 - 44) LV RWT 0.402 LV mass 2D 357.67968574660020 g (Range: 96 - 200) LV mass index 2D 151.7 g/m2 (Range: 50 - 102) LV Villalobos A2C 11.314 cm LV Villalobos A4C 10.884 cm IVSd 2D 1.254 cm (Range: 0.6 - 1) IVS/LVPW 1.007 Left Atrium LA vol BP 135.55 mL LA vol BP A-L 143.718 mL LA size 5.008 cm (Range: 3.0 - 4.0) LA vol index 57.5 mL/m2 (Range: 16 - 34) LA ESV A2C MOD Index 59 ml/m2 LA ESV A4C MOD Index 50 ml/m2 Right Ventricle/Right Atrium RVIDd 4.4 cm RA area 27.377 cm2 Aortic Valve Structure LVOT diam 2 cm LVOT area 3 cm2 Stenosis AV mn grad 7 mmHg AV pk grad 13 mmHg AV mn dana 1.27 m/s AV pk dana 1.81 m/s AV VTI 38.869 cm LVOT mn grad 3.7 mmHg LVOT pk grad 6.83 mmHg LVOT VTI 28.674 cm LVOT mn dana 0.91 m/s LVOT pk dana 1.31 m/s AV area cont VTI 2.2 cm2 AV area pk dana 2.2 cm2 AV Doppler dana index pk dana 0.724 LVOT stroke vol 85.88 mL LVOT stroke vol index 36.45 mL/m2 LV stroke vol BP 150 mL LV stroke vol BP index 63.7 mL/m2 LV stroke vol 2D teich 56.898 ml LV stroke vol index A4C MOD 126.892 ml/m2 LV Stroke Index 2D Teich 24.15 mL/m2 Dimensionless Index 0.738 Mitral Valve Stenosis MV mn grad 4 mmHg MV pk grad 9 mmHg MV mn dana 0.91 m/s MV pk dana 147.163 cm/s IVSd 2D 1.254 cm (Range: 0.6 - 1) MV A pk dana 59.347 cm/s MV E A ratio 2.3 MV area cont eq 2.34 cm2 MV VTI 36.726 cm LVOT VTI 28.674 cm MV decel slope 592.09 cm/s2 Tricuspid Valve Regurgitation TR VTI 113.8 cm TR pk dana 367.8 cm/s sPAP 57 mmHg TR pk grad 54 mmHg Stenosis TV S' dana 12.029 cm/s Pulmonic Valve Stenosis PV mn grad 3 mmHg PV pk dana 113.559 cm/s PV pk grad 5 mmHg PV VTI 26.052 cm RVOT VTI 20.182 cm RVOT mn grad 2 mmHg RVOT pk grad 3 mmHg PV mn dana 80.769 cm/s RVOT pk dana 0.82 m/s Pulmonary Atery sPAP 57 mmHg Diastolic Filling MV E pk dana 136.336 cm/s MV A pk dana 59.347 cm/s MV E A ratio 2.3 MV E' lateral dana 9.105 cm/s MV E' septal dana 4.604 cm/s MV E/e' septal 29.612 MV E/e' lateral 14.973 MV avg E/e' ratio 22.29 MV avg E/e' ratio 22.29 MV DT 230 ms LA vol index 57.5 mL/m2 (Range: 16 - 34) LA vol BP 135.55 mL Septal Defects LVOT stroke vol 85.88 mL LVOT stroke vol index 36.45 mL/m2 Output LVOT pk dana 1.31 m/s LVOT Cardiac Output 5.842 l/min LVOT mn grad 3.7 mmHg LVOT Cardiac Index 2.48 l/min/m2 RV Function TAPSE 2.155 cm (Range: 1.7) Nuc Med: 02/06/2024 (pt has appt with cardiology on 02/27/2024) The heart rate at rest was 72 at baseline and increased to 77 beats per minute during the vasodilator infusion. The BP was 177/78 at rest and 177/78 after the stress procedure. A separate ECG report will be read by Cardiology. Calcium scoring: Multiple unenhanced computed tomographic images with a section thickness of 2.5 mm were obtained throughout the entire heart. Image acquisition use a low radiation dose ECG synchronized CT protocol with the breath-hold. Calcium quantification and scoring was performed using an independent workstation. Findings: The image quality is technically adequate despite adjacent bowel activity. In the stress and rest SPECT/CT images, the left ventricle is enlarged in size with EDV of 232. The stress SPECT/CT images show a normal pattern of myocardial perfusion. There is no significant change in the perfusion pattern at rest. Gated SPECT/CT images show normal myocardial thickening. Mild global reduced left ventricular wall motion. The calculated left ventricular ejection fraction is 42%. Low dose CT portion of the study-non diagnostic- but demonstrates atherosclerotic calcification of coronary arteries CT Calcium score: Calcium scoring to reveal subtle calcification with calcium score in the left main artery 302.4, LAD of 574.0, LCX 53.4and [id number]. Total calcium score is 2473.4. According to MCGILL Risk Score Calculator (https://www.mcgill-nhlbi.org/Calcium/input.aspx) , this is consistent with 99th percentile for age and race matched control. Impression: 1. No evidence of myocardial infarction or stress-induced ischemia. 2. Mild global hypokinesia with calculated left ventricular ejection fraction of 42%. 3. Total Calcium score is 99th , consistent with percentile for age and race matched control. 4. Enlarged left ventricle. Result Text ECG: The ECG was not diagnostic due to failure to achieve 85% maximal predicted target heart rate. ECG: The ECG was not diagnostic due to failure to achieve 85% maximal predicted target heart rate. Stress Findings A pharmacological stress test was performed using regadenoson (0.4 mg). The patient reported no symptoms during the stress test. Symptoms began at minute 1 during stress and ended at minute 4 during recovery. The patient reached the end of the protocol. The patient did not achieve the target heart rate. A peak heart rate of 77 bpm (44% of max predicted heart rate) was achieved. Blood pressure demonstrated a hypertensive response and heart rate demonstrated a blunted response to stress. The patient's heart rate recovery was normal. The patient's resting blood pressure was 177/78 mmHg. The patient's peak stress blood pressure was 177/78 mmHg. ECG Resting ECG: Normal. Normal sinus rhythm. ECG demonstrates first-degree AV block. Stress ECG: No clinically relevant ST-segment deviation. Exhibits no arrhythmias. ECG demonstrates first-degree AV block. Recovery ECG: No clinically relevant ST-segment deviation. Exhibits no arrhythmias. ECG demonstrates first-degree AV block. The ECG was not diagnostic due to failure to achieve 85% maximal predicted target heart rate. Stress Measurements Stress ST Deviation ST Depression (mm) 0 mm Heart Rate Baseline HR 72 bpm Stress peak HR 77 bpm Max Age Predicted HR 175 bpm Target HR 149 bpm Max HR Percent 44 % Recovery ST Deviation Recovery ST Depression (mm) 0 mm Blood Pressure Baseline BP 177/78 mmHg Post peak BP 177/78 mmHg O2 Saturations Recovery ST Depression (mm) 0 mm DSE: 01/07/2024 (submaximal, will need Nuc med stress) Interpretation Summary Left Ventricle: Left ventricle is mildly dilated. Low normal systolic function with a visually estimated EF of 50 - 55%. ECG: The ECG was negative for ischemia. Left ventricle at peak stress: Size is normal. Systolic function is normal. Wall motion is normal. Sensitivity decreased (unable to achieve target HR); no evidence of ischemia at achieved workload. Study Details Study quality was adequate. A limited 2D stress echocardiogram was performed. The apical and parasternal views were obtained. Definity ultrasound enhancing agent used. Patient exhibited sinus rhythm. Technical difficulties due to patient's body habitus. Resting Echo Findings Left Ventricle Left ventricle is mildly dilated. Low normal systolic function with a visually estimated EF of 50 - 55%. Stress Findings A pharmacological stress test was performed using dobutamine and atropine. The peak dobutamine dose was 30.0 mcg/kg/min.The total atropine dose was 2.0 mg. The patient reported no symptoms during the stress test. The patient reached the end of the protocol. The patient did not achieve the target heart rate. A peak heart rate of 102 bpm (58% of max predicted heart rate) was achieved. Blood pressure demonstrated a normal response and heart rate demonstrated a blunted response to stress. The patient's heart rate recovery was normal. The patient's resting blood pressure was 155/74 mmHg. The patient's peak stress blood pressure was 155/55 mmHg. ECG Resting ECG: Normal sinus rhythm. Stress ECG: Non-specific abnormalities in ST-segment deviation. The ECG was negative for ischemia. Post-Stress Echo Echo Post Stress Left ventricle at peak stress: Size is normal. Systolic function is normal. Wall motion is normal. Study Impression Sensitivity decreased (unable to achieve target HR); no evidence of ischemia at achieved workload. Stress Measurements Pharma Data Dobut peak dose 30 mcg/kg/min Atropine total dose 2 mg Heart Rate Baseline HR 70 bpm Stress peak HR 102 bpm Max Age Predicted HR 175 bpm Target HR 149 bpm Max HR Percent 58 % Blood Pressure Baseline BP 155/74 mmHg Post peak BP 155/55 mmHg Recovery BP 155/55 mmHg Stress Echo Measurements Measurement Resting Low Stress Peak Stress Recovery dose 30 mcg/kg/min HR 70 bpm 76 bpm 102 bpm 81 bpm BP 155/74 mmHg 148/68 mmHg 155/55 mmHg 155/55 mmHg Dimensions Left Ventricle LV A2C EF 77 % (Range: 48 - 76) LV A4C EF 77 % (Range: 46 - 74) LV EDV BP 202.846 mL (Range: 62 - 150) LV EDV index BP 86.1 mL/m2 (Range: 34 - 74) LV EDV A2C 205.61 mL (Range: 59 - 175) LV EDV index A2C 87.26 mL/m2 (Range: 31 - 87) LV EDV A4C 190.31 mL LV EDV index A4C 80.77 mL/m2 (Range: 37 - 93) LV ESV BP 46.538 mL (Range: 21 - 61) LV ESV index BP 19.8 mL/m2 (Range: 11 - 31) LV ESV A2C 44.469 mL (Range: 15 - 75) LV ESV index A2C 18.87 mL/m2 (Range: 9 - 37) LV ESV A4C 47.488 mL (Range: 22 - 78) LV ESV index A4C 20.15 mL/m2 (Range: 12 - 40) LV Villalobos A2C 10.648 cm LV Villalobos A4C 11.207 cm Aortic Valve Stenosis LV stroke vol BP 156.3 mL LV stroke vol BP index 66.3 mL/m2 LV stroke vol index A4C MOD 145.841 ml/m2 Nuc med stress: 02/06/2024 The heart rate at rest was 72 at baseline and increased to 77 beats per minute during the vasodilator infusion. The BP was 177/78 at rest and 177/78 after the stress procedure. A separate ECG report will be read by Cardiology. Calcium scoring: Multiple unenhanced computed tomographic images with a section thickness of 2.5 mm were obtained throughout the entire heart. Image acquisition use a low radiation dose ECG synchronized CT protocol with the breath-hold. Calcium quantification and scoring was performed using an independent workstation. Findings: The image quality is technically adequate despite adjacent bowel activity. In the stress and rest SPECT/CT images, the left ventricle is enlarged in size with EDV of 232. The stress SPECT/CT images show a normal pattern of myocardial perfusion. There is no significant change in the perfusion pattern at rest. Gated SPECT/CT images show normal myocardial thickening. Mild global reduced left ventricular wall motion. The calculated left ventricular ejection fraction is 42%. Low dose CT portion of the study-non diagnostic- but demonstrates atherosclerotic calcification of coronary arteries CT Calcium score: Calcium scoring to reveal subtle calcification with calcium score in the left main artery 302.4, LAD of 574.0, LCX 53.4and [id number]. Total calcium score is 2473.4. According to MCGILL Risk Score Calculator (https://www.mcgill-nhlbi.org/Calcium/input.aspx) , this is consistent with 99th percentile for age and race matched control. Impression: 1. No evidence of myocardial infarction or stress-induced ischemia. 2. Mild global hypokinesia with calculated left ventricular ejection fraction of 42%. 3. Total Calcium score is 99th , consistent with percentile for age and race matched control. 4. Enlarged left ventricle. [facility]: 04/27/2024 Conclusion 50% proximal/mid LAD stenosis, ischemic by DFR 0.76. 40% mid LCX narrowing, nonischemic by DFR 0.96. LVEDP: 25 mmHg. Recommendations - Follow maximal guideline directed medical therapy for stable coronary artery disease. - Recommend high dose statin therapy and aspirin 81 mg by mouth daily indefinitely. Complications Complications documented before study signed (04/27/2024 8:58 PM) No complications were associated with this study. Documented by Jose Cedillo MD - 04/27/2024 8:57 PM History and Indications 43 yo male with PMH ESRD on HD, DMT2, moderate TR, GIIDD who presents for coronary angiography and left heart catheterization as part of renal transplant evaluation. Procedure Comments Estimated Blood Loss: 10 mL Access Time Date Event Details User 1:22 PM 04/27/24 Vessel Puncture Intro Shth 6fr 21ga 11cm Prelude Idl Bwt - Right radial artery was accessed using ultrasound guidance and micropuncture kit. JM 1:22 PM 04/27/24 Sheath Intro Shth 6fr 21ga 11cm Prelude Idl Bwt - Sheath was inserted in the right radial artery. JM 2:16 PM 04/27/24 Sheath Intro Shth 6fr 21ga 11cm Prelude Idl Bwt - Sheath was removed in the right radial artery. Closure achieved via radial compression system. 13 mLs of air left in device. JM Coronary Findings Diagnostic Dominance: Right Left Main The vessel was visualized by selective angiography and is moderate in size. The vessel exhibits minimal luminal irregularities. Left Anterior Descending The vessel was visualized by selective angiography and is moderate in size. There is mild diffuse disease throughout the vessel. Prox LAD to Mid LAD lesion is 50% stenosed. ADELINE flow is 3. iFR was measured. iFR ratio: 0.76. Left Circumflex The vessel was visualized by selective angiography and is moderate in size. There is mild diffuse disease throughout the vessel. Mid Cx lesion is 40% stenosed. ADELINE flow is 3. iFR was measured. iFR ratio: 0.96. Right Coronary Artery The vessel was visualized by selective angiography and is moderate in size. There is mild diffuse disease throughout the vessel. Intervention No interventions have been documented. Left Heart Findings Left Ventricle LVEDP: 25 mmHg. Pressures Phase: Baseline Systolic (mmHg) Diastolic (mmHg) Mean (mmHg) A Wave (mmHg) V Wave (mmHg) EDP (mmHg) HR (bpm) AO Pressures 124 58 82 58 131 62 88 58 124 58 82 58 LV Pressures 12 58 136 13 0 26 58 135 12 0 24 58 Oxygen Saturation Ranges RA: (Target range 65-75%) RV: (Target range 65-75%) PA: (Target range 65-75%) PW: (Target range 97-100%) IVC: (Target range 65-75%) SVC: (Target range 65-75%) RFA: (Target range 90-100%) Male Total Hemoglobin Range 12.0-17.6 g/dL Female Total Hemoglobin Range 12.0-15.6 g/dL Dr. Cedillo's input on results: From: Jose Cedillo MD Sent: 04/27/2024 9:03 PM CDT To: Cristiane Valentine MD; Chante Yates RN; * Dear Doctors: Mr. Cole has mid LAD 50% stenosis that is ischemic (DFR 0.76). The remainder of this coronaries are fine. Mid LCX 40% which is nonischemic (DFR 0.96). If you decide this needs to be intervened before transplant listing, we can arrange that with estimated plavix use 3-6 months. If you have any questions, please feel free to call or text me on my cell phone [phone]. I appreciate the opportunity to participate in the care of your patient and look forward to being of service in the future as well. Sincerely, Jose Cedillo MD, PhD, [facility] 05/25/2020 (completed given length of time DM2) HEMODYNAMIC FINDINGS: LV:148/28 mm Hg AO: 144/75 mm Hg ANGIOGRAPHY: i. Left main: Angiographically normal vessel. LM divides into LAD and LCx. ii. LAD: Proximal LAD has no significant disease. Mid LAD had mild focal stenosis up to 30% stenosis. Distal LAD has mild diffuse disease. There are four diagonal branches which are small caliber without angiographically significant disease. iii. LCx: Proximal LCx has no significant disease. There is moderate caliber branching OM branch with mild diffuse disease in the proximal part. True LCx is dimunitive vessel that runs in the AV groove. iv. RCA: Proximal RCA has no significant disease. Mid RCA has mild diffuse disease. Distal RCA has trival plaque. Distal RCA divides in to PDA and PL branches. DOMINANCE: Right DIAGNOSTIC INTERPRETATIONS: Non obstructive Coronary artery disease. RECOMMENDATIONS AFTER DIAGNOSTIC CATHETERIZATION: Medical management of nonobstructive CAD. Aggressive modification of atherosclerotic risk factors. CXR: 01/07/2024 Findings/Impression: . No focal consolidation, pleural effusion, or pneumothorax is identified. The heart is slightly prominent. Pano: pt has full dentures CT abd/pelvis non-contrast: 01/07/2024 Findings: Evaluation of visceral and vascular structures is degraded due to lack of intravenous contrast administration. Lower Chest: Normal. Liver: Within the limitations of a noncontrast examination, the liver is unremarkable. Gallbladder and Bile Ducts: Normal. Spleen: Splenomegaly measuring up to 14.6 cm. Pancreas: Fatty degeneration the pancreas appear Adrenals: Normal. Kidneys: Bilateral kidneys are atrophic. There is medullary nephrocalcinosis. No hydronephrosis. Gastrointestinal/Mesentery/Peritoneum: Mesenteric and retroperitoneal stranding. Small volume ascites in the pelvis. The stomach and visualized loops of large and small bowel are unremarkable. No evidence of bowel obstruction.. Normal appendix. Bladder: Normal. Vasculature: Moderate calcifications of the abdominal aortic branches including the celiac trunk, splenic artery, bilateral renal arteries, inferior mesenteric artery and superior mesenteric artery. There is moderate atherosclerotic disease of the bilateral external iliac and common iliac arteries. There is moderate to severe atherosclerotic calcification of the bilateral internal iliac arteries. Bones: Bone windows demonstrate no suspicious lytic or blastic lesions. Prominent Schmorl's node, progressed from previous examination at the inferior endplate of L4 vertebral body. Soft tissues: Mild subcutaneous stranding and skin thickening in the inferior anterior abdominal wall. Impression: 1.Moderate atherosclerotic calcification. 2.Nonspecific small volume ascites and mesenteric/retroperitoneal stranding/edema. ABIs: 01/07/2024 [facility]/07/2024 INDINGS: A district traffic chief radiograph remarkable, other than calcification of iliac arteries and vas deferens. A [place] catheter was placed through the urethra in a sterile fashion. An AP radiograph obtained after the bladder was filled with 150 mL of contrast demonstrated no evidence of filling defects or vesicoureteral reflux. The urinary bladder was then filled to patient tolerance with a total of 300 mL of contrast. Multiple radiographs obtained after the bladder was completely filled with contrast demonstrated no evidence of filling defects or vesicoureteral reflux. The patient was not able to void after waiting for 30 minutes. Final overhead image demonstrated large volume of contrast within the bladder IMPRESSION: 1.No evidence of bladder filling defects or vesicoureteral reflux after filling the bladder with 300 cc of contrast. 2.The patient was not able to void with demonstration of large volume contrast within the bladder. [facility]07/01/2020 FINDINGS: The bladder was normal in size and had normal contours. No filling defects are identified. No evidence of vesicoureteral reflux. The patient was unable to void spontaneously for fluoroscopic imaging of the urethra. A postvoid overhead radiograph demonstrated no residual contrast in the bladder. IMPRESSION: Normal bladder with no evidence of reflux or post void residual. PPD/Quant gold: 01/07/2024 quant gold negative Colonoscopy: 01/28/2024 Findings: Five sessile polyps were found in the transverse colon and ascending colon. The polyps were 2 to 10 mm in size. These polyps were removed with a cold snare. Resection and retrieval were complete. The exam was otherwise without abnormality on direct and retroflexion views. The perianal and digital rectal examinations were normal. Estimated Blood Loss: Estimated blood loss was minimal. Complications: No immediate complications. Impression: - Preparation of the colon was adequate to rule out polyps > 6 mm. - Five 2 to 10 mm polyps in the transverse colon and in the ascending colon, removed with a cold snare. Resected and retrieved. - The examination was otherwise normal on direct and retroflexion views. Moderate Sedation: . Recommendation: - Resume previous diet as tolerated. - Resume previous medications today. - Follow-up pathology / biopsy results. Further management accordingly. - Plan for repeat colonoscopy in 3 years - Follow-up with primary care / referring providers. - The potential complications and concerning symptoms/findings, including but not limited to early or delayed fevers, infection, pain, bleeding, perforation, were discussed with the patient/caregiver. Emergency contact information was provided. - Repeat colonoscopy in 3 years for surveillance. Pathology: 01/28/2024 Final Diagnosis Ascending/transverse colon polyps x5, biopsies (A) - Tubular adenoma(s), fragmented Dental: pt has full dentures SW: 01/21/2024 Clinical Social Work Impression: It is the impression of this social media manager that Rj Cole has several positive factors for Kidney from a psychosocial perspective. Patient appears to have appropriate knowledge of illness. Patient has sufficient insurance coverage and stable financial situation for post transplant needs. No concerns regarding substance abuse, legal issues, or mental health needs. Patient has adequate support system and appropriate discharge plan. Plan: carry in worker to provide supportive services as needed. Patient appears to be a reasonable candidate for transplant from a psychosocial perspective. -Post transplant arrangement forms are needed prior to being listed. Psychiatric Consult Recommended: No Transplant Environmental Protection Forester: Katherine Joaquin LMSW Abdominal Transplant Environmental Protection Forester [phone] BOOM STICK MAN Forms: Transplant Caregiver Confirmation Note Caregiver Confirmation Date Primary Name of Primary: [place] Relationship: girlfriend - BOOM STICK MAN form received on 01/21/24 - Confirmed via telephone on 01/27/24 Secondary Name of Secondary: Dorcas Relationship: sister - BOOM STICK MAN form received on 01/21/24 - Confirmed via telephone on 01/27/24 Pt girlfriend also has an adult son that lives with them, Micah (26) who can also be present post txp. Post Transplant Arrangement Forms scanned into media on this date RD: 01/08/2024 Transplant Nutrition Evaluation BMI: 31.9, class I Obesity. Pt is considered to be a good candidate for a Kidney Transplant from a Nutrition standpoint. Pt instructed no further wt gain. 10-15 lb wt gain 2/2 pt stopped smoking cigars. Nutrition Recommendations/Pt instructed to: Renal diet: Pt instructed to continue to work with Renal RD at HD on diet and to be compliant. Exercise: Active with kids, walks, follows DU lifting restrictions Weight Assessment: Ht: 72 Wt: 235 lbs 6.4 oz BMI: 31.9 Wt History: Recent Weights/Methods 05/15/2022 1310 05/28/2023 1326 01/07/2024 0801 Weight: 112 kg (246 lb 14.6 oz) 105 kg (231 lb 7.7 oz) 106.6 kg (235 lb) Weight Method : Stated -- -- Comments (Compliance/Labs, etc): Previously educated on diet: Has the Dialysis unit discussed a Kidney diet with you? Pt follows: no cheese, eats only lean meats and fresh veggies, Based on pt's food reported recall, pt seems Mostly compliant with Diet Y/N: Y and N If No, why: Admits on a hot day, may exceed fluid restriction Eats out: 2 times per mo, no Fast foods Has Food stamps 50$/mo - buy fresh foods. 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 Hyponatremia 02/18/2019 ESRD (end stage renal disease) 02/09/2019 Complication of arteriovenous dialysis fistula Encounters Date Type Department Care Team Description 09/04/2024 Refill [facility] [address] [place] [id number] Kim Garrett APRN-CONTRACT SERVICEMAN Refill Request from Last 3 Months Immunizations Immunization Administration Dates Next Due COVID BERT PRIMARY 18+YR 10/17/2020 FLU VACCINE QUAD IIV4 PF ID 05/08/2021, 0,05/08/2019 HEP B VACCINE, ADULT 3 DOSE 12/30/2020,0 10/12/2019,06/15/2019,05/18/2019,03/23 INFLUENZA VACCINE 03/22/2020 PNEUMOCOCCAL PCV VACCINE 04/24/2019 Family History Medical History Relation Name Comments CAD (Coronary Artery Disease) Brother Diabetes - Type 2 Brother Renal Disease Cousin on dialysis CAD (Coronary Artery Disease) Father CAD (Coronary Artery Disease) Mother Cancer - Lung Other cousin Diabetes - Type 2 Sister 1 Diabetes - Type 2 Sister 2 Other Neg Hx unkmown Relation Name Status Comments Brother Alive Cousin Alive Father (Age early 60s) Mother (Age early 60s) Other cousin Sister 1 Alive Sister 2 Alive Son Alive Social History Tobacco Use Types Packs/Day Years Used Date Smoking Tobacco: Former Cigars Q uit: 02/09/2018 Smokeless Tobacco: Never Tobacco Cessation:Counseling Given: Not Answered Comments:a couple cigars on a weekend when he drank, denies being a heavy drinker, maybe only drank once a month, quit in 2017 Last cigar use beginning of November 2023 Alcohol Use Standard Drinks/Week Comments No 0 (1 standard drink = 0.6 oz pur e alcohol) AUDIT-C Answer Date Recorded Q1: How often do you have a drink containing alcohol? Never 04/27/2024 Q2: How many drinks containi ng alcohol do you have on a typical day when you are drinking? Patient does not drink Q3: How often do you have si x or more drinks on one occasion? Never 04/27/2024 Sex and Gender Information Value Date Recorded Sex Assigned at Not on file Legal Sex Male 1:41 PM CDT Gender Identity Not on file Sexual Orientation Not on file Last Filed Vital Signs Vital Sign Reading Time Taken Comments Blood Pressure 140/64 06/11/2024 2:00 PM SAP BODS DEVELOPER Pulse 58 06/11/2024 2:00 PM SAP BODS DEVELOPER Temperature 36.7 C (98 F) 06/11/2024 10:58 AM SAP BODS DEVELOPER Respiratory Rate 10 06/11/2024 2:00 PM SAP BODS DEVELOPER Oxygen Saturation 97% 06/11/2024 2:00 PM SAP BODS DEVELOPER Inhaled Oxygen Concentration - - Weight 106.6 kg (235 lb) 06/11/2024 5:50 AM SAP BODS DEVELOPER Height 182.9 cm (6') 06/11/2024 5:50 AM SAP BODS DEVELOPER Body Mass Index 31.87 06/11/2024 5:50 AM SAP BODS DEVELOPER Plan of Treatment Upcoming Encounters Date Type Department Care Team (Late st Contact Info) Description 05/25/2025 2:15 PM SAP BODS DEVELOPER Appointment [facility] [address] [place], [place] [id number] Health Maintenance Due Date Last Done Comments COLOGUARD (AGES 45-75) - COLON CA SCREENING 1978 CT COLONOGRAPHY - COLON CA SCREENING 1980 FIT - COLON CA SCREENING 1980 FLEX SIG - COLON CA SCREENING 1978 MEDICARE AWV 12 MONTHS 1978 DTAP/TDAP/TD VACCINES (1 - Tdap) 1997 PNEUMOCOCCAL VACCINE (2 of 2 - PPSV23) 06/19/2019 04/24/2019 DIABETES RETINOPATHY SCREENING 02/27/2024 DIABETES-FOOT EXAM WITH MONOFILAMENT 02/27/2024 COVID-19 VACCINE (2 - season) 2024 10/17/2020 DEPRESSION SCREENING 07/22/2024 DIABETES-HGB A1C 11/10/2024 05/12/2024, , 05/12/2020, Additional history exists INFLUENZA VACCINE (Season Ended) 2025 05/08/2021, 04/25/2020, 03/22/2020, Additional history exists ZOSTER VACCINE (1 of 2) 2028 COLON MONITORING 01/27/2034 01/28/2024, 01/28/2024 COLONOSCOPY - COLON CA SCREENING 01/27/2034 01/28/2024, 01/28/2024 Colorectal Cancer Screening 01/27/2034 HEPATITIS B VACCINE Completed 12/30/2020, 10/12/2019, 06/15/2019, Additional history exists HEPATITIS C SCREENING Completed 01/07/2024, 020 HIV SCREENING Completed 01/07/2024, 10/01/2019 HIB VACCINE Aged Out No longer eligi ble based on patient's age to complete this topic HPV VACCINE Aged Out No longer eligi ble based on patient's age to complete this topic MENINGOCOCCAL (Group B) VACCINE SHARED DECISION-MAKING Aged Out No longer eligible based on patient's age to complete this topic MENINGOCOCCAL GROUPS A/C/Y/W VACCINE Aged Out No longer eligible based on patient's age to complete this topic Medical Devices Implanted Type Area Oven Baker Device Identifier Shelf Expiration Date Model / Serial / Lot Stent Cor Giovanni 3.50 X 18rx Drg Elut - [id number] Implanted:Qty: 1 on 06/11/2024 by Jose Cedillo MD at [facility] Left: Coronary [employer] [id number] 06/11/2026 [id number] / [id number] / [id number] Procedures Procedure Name Priority Date/Time Associated Diagnosis Comments HEMOGLOBIN A1C - POINT OF CARE (AMB) [facility] Routine 05/12/2024 1:22 PM CDT 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, without long-term current use of insulin ENDOSCOPY, COLON, SCREENING Routine 01/28/2024 12:23 PM CDT HEPATITIS C ANTIBODY Routine 01/07/2024 12:28 PM CDT Pre-transplant evaluation for kidney transplant HIV-1 HIV-2 ANTIBODY + HIV P24 AG PANEL Routine 01/07/2024 12:28 PM CDT Pre-transplant evaluation for kidney transplant from Last 3 Months or Most Recently Relevant to Health Maintenance Results * HEMOGLOBIN A1C - POINT OF CARE (AMB) [facility] (05/12/2024 1:22 PM CDT) Hemoglobin A1c POCT 4.7 % [address] BLOOD SPECIMEN / Unknown 05/12/2024 1:22 PM CDT Niurka Donato MD LAB - POINT OF CARE ORDERABLES Final Result [address], [place] [address], [facility] [phone] * ENDOSCOPY, COLON, SCREENING (01/28/2024 12:23 PM CDT) Report Endoscopy POC Endoscopy Department Report _ Patient Name: Rj Cole Procedure Date: 01/28/2024 12:23 PM Date of : 1980 Classification: Outpatient Gender: Male Ethnicity: Not or Race: White _ Providers: Mauro Gómez MD, Cheko Ponce (Fellow) Referring MD: Dallas Tejada (Referring MD) Procedure: Colonoscopy Indications: Screening for colorectal malignant neoplasm Medications: See the Anesthesia note for documentation of the administered medications, Monitored Anesthesia Care Comorbidities ESRD on HD Patient Profile: This is a 43 year old male. Description of Procedure: Pre-Anesthesia Assessment: - Prior to the procedure, a History and Physical was performed, and patient medications and allergies were reviewed. The patient's tolerance of previous anesthesia was also reviewed. The risks and benefits of the procedure and the sedation options and risks were discussed with the patient. All questions were answered, and informed consent was obtained. Prior Anticoagulants: The patient has taken no anticoagulant or antiplatelet agents. ASA Grade Assessment: II - A patient with mild systemic disease. After reviewing the risks and benefits, the patient was deemed in satisfactory condition to undergo the procedure. After I obtained informed consent, the scope was passed under direct vision. Throughout the procedure, the patient's blood pressure, pulse, and oxygen saturations were monitored continuously. The [id number] was introduced through the anus and advanced to the cecum, identified by appendiceal orifice and ileocecal valve. The colonoscopy was performed without difficulty. The patient tolerated the procedure well. The quality of the bowel preparation was evaluated using the BBPS ([place] Bowel Preparation Scale) with scores of: Right Colon = 2 (minor amount of residual staining, small fragments of stool and/or opaque liquid, but mucosa seen well), Transverse Colon = 2 (minor amount of residual staining, small fragments of stool and/or opaque liquid, but mucosa seen well) and Left Colon = 2 (minor amount of residual staining, small fragments of stool and/or opaque liquid, but mucosa seen well). The total BBPS score equals 6. The quality of the bowel preparation was fair. The ileocecal valve, appendiceal orifice, and rectum were photographed. Findings: Five sessile polyps were found in the transverse colon and ascending colon. The polyps were 2 to 10 mm in size. These polyps were removed with a cold snare. Resection and retrieval were complete. The exam was otherwise without abnormality on direct and retroflexion views. The perianal and digital rectal examinations were normal. Estimated Blood Loss: Estimated blood loss was minimal. Complications: No immediate complications. Impression: - Preparation of the colon was adequate to rule out polyps > 6 mm. - Five 2 to 10 mm polyps in the transverse colon and in the ascending colon, removed with a cold snare. Resected and retrieved. - The examination was otherwise normal on direct and retroflexion views. Moderate Sedation: . Recommendation: - Resume previous diet as tolerated. - Resume previous medications today. - Follow-up pathology / biopsy results. Further management accordingly. - Plan for repeat colonoscopy in 3 years - Follow-up with primary care / referring providers. - The potential complications and concerning symptoms/findings , including but not limited to early or delayed fevers, infection, pain, bleeding, perforation, were discussed with the patient/caregiver . Emergency contact information was provided. - Repeat colonoscopy in 3 years for surveillance. Attending Participation: I was present and participated during the entire procedure, including non-barillas portions. Procedure Code(s): --- Professional --- 11459, Colonoscopy, flexible; with removal of tumor(s), polyp(s), or other lesion(s) by snare technique Diagnosis Code(s): --- Professional --- Z12.11, Encounter for screening for malignant neoplasm of colon D12.3, Benign neoplasm of transverse colon (hepatic flexure or splenic flexure) D12.2, Benign neoplasm of ascending colon CPT copyright 2021 [employer]. All rights reserved. The codes documented in this report are preliminary and upon pipeline operator review may be revised to meet current compliance requirements. Mauro Gómez MD 01/28/2024 1:37:03 PM Note Initiated On: 01/28/2024 12:23 PM Number of Addenda: [id number] [place] [address] 01/28/2024 12:2 3 PM CDT us Daniel Leggett MD GI PROCEDURE ORDERAB LES Edited Result - Final [facility] * HIV-1 HIV-2 ANTIBODY + HIV P24 AG PANEL (01/07/2024 12:28 PM CDT) HIV Antigen/Antibod y 1 & 2 Non-reacti ve Non-react mary jane 01/07/2024 2:52 PM CDT [facility] Comment:No Laboratory eviden ce of HIV infection. Blood BLOOD SPECIMEN / Unknown Lab Venipuncture / Unknown 01/07/2024 12:28 PM CDT 01/07/2024 1:08 PM CDT Clif Stein MD LAB - CHEMISTRY ORDERAB LES Final Result Performing Organization Address [facility] Co de Phone Number [address] [address], [place] [phone] * HEPATITIS C ANTIBODY (01/07/2024 12:28 PM CDT) Hepatitis C Antibody Non-react mary jane Non-reac tive 01/07/2024 2:52 PM CDT [facility] Comment:Hepatitis C Antibody screen indicates no serologic evidence of past or current infection with Hepatitis C Virus. Patients with unexplained liver disease who are immunocompromised or suspected of having acute Hepatitis C infection may benefit from Nucleic Acid Test (EVELIA) for Hepatitis C Viral RNA to confirm Hepatitis C status. Blood BLOOD SPECIMEN / Unknown Lab Venipuncture / Unknown 01/07/2024 12:28 PM CDT 01/07/2024 1:08 PM CDT Clif Stein MD LAB - CHEMISTRY ORDERAB LES Final Result Performing Organization Address [facility] Co de Phone Number [address] [address], [place] [phone] from Last 3 Months or Most Recently Relevant to Health Maintenance Insurance MEDICARE Advance Directives * Full Code (Latest Code Status on File) Date Activated Date Inactivated Comments 06/11/2024 11:04 AM 06/11/2024 4:07 PM * Full Code Date Activated Date Inactivated Comments 04/27/2024 2:39 PM 04/27/2024 6:53 PM * Full Code Date Activated Date Inactivated Comments 05/25/2020 9:50 AM 05/25/2020 3:06 PM * Full Code Date Activated Date Inactivated Comments 02/18/2019 3:49 PM 02/23/2019 4:47 PM Care Teams Warehouse Shipping Clerk Relationship Specialty Start Date End Date Dallas Tejada MD [address] [address] PCP - General Internal Medicine 02/18/19 Dallas Tejada MD [address] [address] [facility] 10/20/24
--- NOTE | 2024-11-11 15:10 | P.HP_ITS ---
H&P: HPI History of Present Illness Date/Time: 11/11/24 15:10 Chief Complaint: Diarrhea and in need of dialysis. Narrative: This is a pleasant 44-year-old male with end-stage renal disease reportedly secondary to significant NSAID on hemodialysis for the last 6 years, coronary artery disease with history of stents, hypertension, hyperlipidemia, and anemia who presented to the emergency department via private vehicle with complaints of diarrhea and in need of dialysis. He typically has problems with constipation, were since he had an increase in his phosphate binder dosing, and he has been taking senna every night before bed. Late Saturday night or early Saturday morning he started to have diarrhea and he reports having too numerous to count episodes of watery brown and dark green-colored stools. He has been taking Pepto-Bismol with perhaps some improvement and now the stool is more dark. He was unable to get to dialysis on Saturday as he was in the bathroom most of the day and he has noticed an increase in swelling since that time. He denies sick contacts, recent travel, and recent antibiotic use. He also denies fever, chills, sweats, abdominal pain, bloating, belching, and hematochezia. No chest pain or shortness of breath. In the ED: Blood pressures have been running in the 170s to 180s systolic. The remainder of his vital signs are stable. Labs were significant for WBC count of 6.7, hemoglobin 9.1, MCV 102.6, platelet 110, sodium 136, potassium 5.1, chloride 94, carbon dioxide 18, anion gap 24, BUN 71, creatinine greater than 14. He is being admitted in this setting for further workup and dialysis tomorrow. Review of Systems Review of Systems: 12 systems were reviewed and are negativ e except for as per HPI. [facility] Past Medical History Medical History (Updated 11/11/24 @ 21:51 by Jahaira Escalante PA-C) Coronary artery disease Anemia in chronic kidney disease Hyperlipidemia Hypertension End-stage renal disease on hemodialysis on transplant list at [facility] Surgical History Surgical History (Updated 11/11/24 @ 21:49 by Jahaira Escalante PA-C) History of cardiac catheterization (05/2024) History of coronary artery stent placement (05/2024) at [facility] Status post creation of arteriovenous fistula left upper extremity Family History Family History Mother Acute myocardial infarction Father Acute myocardial infarction Sibling Diabetes mellitus Social History Social History (Updated 11/11/24 @ 21:50 by Jahaira Escalante PA-C) Social History: Surrogate medical decision maker: Virginia Bustamante, girlfriend. Code status: Full code. Years smoked: 23 Smoking status: Former smoker Tobacco type: cigars Smoking end date: 09/20/23 Alcohol intake: never Substance use: former Substance use type: marijuana Do You Feel Safe in your Home?: Yes Lack of Transportation: No Lack of Food: Never True Current Housing: I Have Housing Concerned About Future Housing: No Difficulty Paying Gas/Electric Bills: No Difficulty Paying for Meds: No Currently Unemployed: YES Education: High School Diploma/GED Difficulty w/ Childcare or Family Care: No Additional living arrangements comments: Lives with girlfriend. Additional occupation/education comments: Disabled. Spiritual care concerns: No Meds Home Medications and Allergies Home Medications ?Medication ?Instructions ?Recorded ?Confirmed ?Type amlodipine 10 mg tablet 10 mg PO DAILY 11/11/24 11/11/24 History calcium acetate(phosphat bind) 667 667 mg PO QID 11/11/24 11/11/24 History mg capsule clopidogrel 75 mg tablet 75 mg PO DAILY 11/11/24 11/11/24 History cyclobenzaprine 10 mg tablet 10 mg PO Q8H PRN restless leg(s) 11/11/24 11/11/24 History furosemide 80 mg tablet 80 mg PO Q12H 11/11/24 11/11/24 History hydralazine 50 mg tablet 50 mg PO TID 11/11/24 11/11/24 History metoprolol succinate 25 mg 12.5 mg PO DAILY 11/11/24 11/11/24 History tablet,extended release 24 hr peg-electrolyte solution 420 gram 240 ml PO DAILY PRN constipation 11/11/24 11/11/24 History oral solution ropinirole 0.25 mg tablet 0.25 mg PO HS 11/11/24 11/11/24 History rosuvastatin 10 mg tablet 10 mg PO HS 11/11/24 11/11/24 History Allergies Allergy/AdvReac Type Severity Reaction Status Date / Time No Known Allergies Allergy Verified 11/11/24 11:20 Vital Signs Vital Signs - 24 hr 11/11/24 08:55 11/11/24 11:04 11/11/24 11:05 Temperature 97.0 F L Pulse Rate 75 69 69 Respiratory Rate 18 16 13 Blood Pressure 157/72 H 172/81 H Pulse Oximetry 99 99 100 Oxygen Delivery Room Air 11/11/24 11:15 11/11/24 11:16 11/11/24 11:30 Temperature Pulse Rate 69 68 66 Respiratory Rate 15 16 16 Blood Pressure 172/81 H Pulse Oximetry 100 100 97 Oxygen Delivery Room Air 11/11/24 11:32 11/11/24 11:45 11/11/24 11:47 Temperature Pulse Rate 68 69 69 Respiratory Rate 15 14 12 Blood Pressure 186/86 H 179/84 H Pulse Oximetry 98 100 100 Oxygen Delivery 11/11/24 12:00 11/11/24 12:02 11/11/24 12:15 Temperature Pulse Rate 69 69 67 Respiratory Rate 18 15 18 Blood Pressure 197/88 H Pulse Oximetry 100 100 97 Oxygen Delivery 11/11/24 12:17 11/11/24 12:18 11/11/24 12:30 Temperature Pulse Rate 68 67 66 Respiratory Rate 12 13 17 Blood Pressure 174/82 H Pulse Oximetry 96 100 95 Oxygen Delivery 11/11/24 12:32 11/11/24 12:45 11/11/24 12:47 Temperature Pulse Rate 67 67 66 Respiratory Rate 18 21 H 19 Blood Pressure 186/82 H 181/79 H Pulse Oximetry 93 94 94 Oxygen Delivery 11/11/24 13:00 11/11/24 13:01 11/11/24 13:15 Temperature Pulse Rate 70 69 69 Respiratory Rate 17 19 17 Blood Pressure 183/84 H Pulse Oximetry 94 94 96 Oxygen Delivery 11/11/24 13:16 11/11/24 13:30 11/11/24 13:31 Temperature Pulse Rate 69 69 69 Respiratory Rate 17 18 18 Blood Pressure 186/84 H 189/81 H Pulse Oximetry 93 95 99 Oxygen Delivery 11/11/24 14:43 Temperature Pulse Rate 75 Respiratory Rate 13 Blood Pressure 179/84 H Pulse Oximetry 100 Oxygen Delivery Exam 2 Narrative: General: Chronically ill-appearing male sitting up in bed in no acute distress. Weight: 103 kg. BMI: 30.8. HEENT: PERRL, EOMI. Sclera anicteric. Tacky mucous membranes. Neck: Supple. No JVD. Respiratory: Respirations are nonlabored. Fine crackles heard at the bases. Cardiovascular: Regular rate and rhythm with S1-S2. Murmur heard at the left sternal border. Gastrointestinal: Abdomen is soft, who bring, and nondistended with positive bowel sounds. Skin: Warm and dry. Extremities: No cyanosis or clubbing. Pitting edema up to the thighs. Left uppe r extremity fistula with palpable thrill and bruit. Neurological: Alert. Cranial nerves 2-12 are grossly intact. Delete No gross focal deficits to casual conversation. Psychiatric: Pleasant and cooperative with appropriate mood and affect. H&P: Results Labs Labs: Short CBC 11/11/24 Range/Units 11:15 WBC 6.7 (4.5-10.0) K/mm3 Hgb 9.1 L (14.0-18.0) g/dL Hct 27.9 L (42.0-52.0) % Plt Count 110 L (150-375) k/mm3 BMP 11/11/24 11:15 Sodium 136 L Potassium 5.1 H Chloride 94 L Carbon Dioxide 18 L BUN 71 H Creatinine > 14.00 H Glucose 87 Calcium 9.6 Liver Function 11/11/24 Range/Units 11:15 Total Bilirubin 0.4 (0.2-1.3) mg/dL AST 17 (17-59) U/L ALT 18 (6-50) U/L Alkaline Phosphatase 96 (38-126) U/L Albumin 4.8 (3.5-5.1) g/dL Assessment and Plan Assessment and plan (1) Diarrhea: Code(s): R19.7 - Diarrhea, unspecified Status: Acute (2) Volume overload: Code(s): E87.70 - Fluid overload, unspecified Status: Acute (3) End-stage renal disease on hemodialysis: Code(s): N18.6 - End stage renal disease; Z99.2 - Dependence on renal dialysis Status: Acute (4) Electrolyte abnormality: Code(s): E87.8 - Other disorders of electrolyte and fluid balance, not elsewhere classified Status: Acute (5) Anemia in chronic kidney disease: Code(s): N18.9 - Chronic kidney disease, unspecified; D63.1 - Anemia in chronic kidney disease Status: Acute (6) Hypertension: Code(s): I10 - Essential (primary) hypertension Status: Acute (7) Coronary artery disease: Code(s): I25.10 - Atherosclerotic heart disease of [place] coronary artery without angina pectoris Status: Acute Plan The patient presented to the emergency department with complaints of diarrhea and in need of dialysis as detailed in the HPI. Labs, imaging, EKG, and all reports were personally reviewed. He has significant edema the lower extremities up to the thighs with some mild crackles on auscultation the lungs. ED physician spoke with Nephrology and there are plans for dialysis tomorrow. He has some mild electrolyte abnormalities due to missed dialysis and as well as a mild acidosis, again due to the missed dialysis. Regarding the diarrhea, he gives history of longstanding constipation which has been worse recently due to an increase in his phosphate binders. While his abdominal exam is benign, a KUB has been ordered to rule out the possibility of constipation which could be causing overflow diarrhea. Send stools for culture and C diff though doubt this is infectious. He reports having chronic anemia due to his kidney disease and hemoglobin will be monitored. Blood pressures have been running in the 170s to 180 systolic and will be monitored closely. Continue amlodipine, furosemide, hydralazine, and metoprolol. He had a stent placed last May and is on clopidogrel which will also be continued. He has not had any issues with chest pain. His home medications will be reviewed and resumed as appropriate. Findings and treatment plan were discussed with the patient. Questions were solicited and answered to satisfaction. The patient's medical management will be taken over by the hospitalist team in a.m. Quality VTE Prophylaxis VTE prophylaxis: pharmacologic ordered The patient has been admitted under observation status. Hospitalist [facility] Advance Care Plan I have confirmed that the patient's Advanced Care Plan is present, code status is documented, or surrogate decision maker is listed in patient medical record.: Yes Medication Reconciliation I have utilized all available resources to obtain, update and review the patients current medications (includes all prescriptions, OTC, herbals, cannabis, and nutritional supplements).: Yes
--- NOTE | 2024-11-11 15:48 | PC.NURSE ---
Sitting in room with mother at bedside. Pt restless. Pt thinks the people he is seeing and hearing are putting spice in his marijuan nut grinder. Pt cooperative with staff.
--- NOTE | 2024-11-11 19:12 | ADMGEN ---
This patient, Rj Cole, was admitted to 3 [facility] Surg Room 309-01 @ 1850. Patient/family oriented to hospital policies and general routines including ID bracelet, bed and alarms, visiting hours, pain management, procedures, bathroom and other care routines, personal items, smoking policy, room service/diet, and visiting hours. Information on how to activate the Rapid Response Team has been discussed. Patient/Family are encouraged to report perceived risks to care and to ask questions if they do not understand what they are told or what they should do.
[2024-11-11] MEDS: CALCIUM ACETATE 667 MG TABLET PO (22:41)
[2024-11-11] MEDS: hydrALAZINE HCL 50 MG TABLET PO (22:41)
[2024-11-11] MEDS: FUROSEMIDE 80 MG TABLET PO (22:41)
[2024-11-12] VITALS (28 sets, daily range): BP systolic 136–184; BP diastolic 68–88; PULSE 64–74; RESP 16–20; TEMP 36.5–37.3; O2SAT 96–100
[2024-11-12 06:44] LABS: Hematocrit 26.4 % (42.0-52.0); Hemoglobin 8.3 g/dL (14.0-18.0); Mean Corpuscular HGB Conc 31.4 g/dl (32-36); Mean Corpuscular Hemoglobin 33.2 pg (26-34); Mean Corpuscular Volume 105.6 fl (80-100); Platelet Count Result 104 k/mm3 (150-375)
[2024-11-12 07:02] LABS: Anion Gap 21 mmol/L (4-12); Blood Urea Nitrogen 82 mg/dL (9-20); Calcium 9.4 mg/dL (8.4-10.2); Carbon Dioxide 18 mmol/L (22-30); Chloride 93 mmol/L (98-107); Estimated CRCL calculation 8 ml/min; Estimated Glomerular Filt Rate 4; Glucose 97 mg/dL (65-110); Magnesium 2.9 mg/dL (1.6-2.3); Phosphorus 7.6 mg/dL (2.5-4.5); Potassium 4.9 mmol/L (3.4-5.0); Sodium 132 mmol/L (137-145)
--- NOTE | 2024-11-12 07:17 | P.PNIM_ITS ---
Progress Note: A&P Assessment and Plan (1) Diarrhea: Code(s): R19.7 - Diarrhea, unspecified Status: Acute Assessment and Plan: * Started Saturday * History of long standing constipation, worsened by recent addition of Phosphate binders * Stool culture and C. Diff * KUB: Nonspecific, nonobstructive bowel gas pattern. * Less likely infectious * Imodium PRN (2) End-stage renal disease on hemodialysis: Code(s): N18.6 - End stage renal disease; Z99.2 - Dependence on renal dialysis Status: Acute Assessment and Plan: * Creatinine: 14.76, GFR: 4, BUN: 82 * Trend renal function * trend electrolytes, correct as needed * Dialysis M/W/F * Missed Saturday/Saturday dialysis d/t diarrhea (3) Volume overload: Code(s): E87.70 - Fluid overload, unspecified Status: Acute Assessment and Plan: * See above, likely secondary to missed dialysis * Chest XR: Lungs are clear, without focal consolidation or pleural effusion. Cardiomediastinal silhouette is borderline enlarged. Bones and soft tissues are unremarkable. (4) Electrolyte abnormality: Code(s): E87.8 - Other disorders of electrolyte and fluid balance, not elsewhere classified Status: Acute Assessment and Plan: * ED workup: NA 136, K 5.1, Cl 94, Phosphorus 7.6, Mg 2.9, Ca 9.4 * Monitor CMP daily * Supplement as needed (5) Anemia in chronic kidney disease: Code(s): N18.9 - Chronic kidney disease, unspecified; D63.1 - Anemia in chronic kidney disease Status: Acute Assessment and Plan: * Hgb 8.3, RBC 2.5, Hct 26.4 * add iron, TIBC, ferritin, B12, folic acid, and TSH * transfuse if <7 * trend H&H (6) Hypertension: Code(s): I10 - Essential (primary) hypertension Status: Acute Assessment and Plan: * chronic * continue amlodipine, hydralazine, metoprolol (7) Coronary artery disease: Code(s): I25.10 - Atherosclerotic heart disease of [place] coronary artery without angina pectoris Status: Acute Assessment and Plan: * Rosuvastatin 10mg Time Spent With Patient Time: Subjective Date/time seen: 11/12/24 07:17 Interval history: 44-year-old male with ESRD reportedly secondary to significant NSAID on hemodialysis for the last 6 years, CAD with history of stents, HTN, hyperlipidemia, and anemia who presented to the ED with diarrhea and in need of dialysis. 11/12/2024 Patient sitting comfortably in bed receiving dialysis treatment of examination. At this time he denies any chest pain, SOB, n/v, abdominal pain, or urinary complaints. He states that he missed his Saturday and Saturday dialysis due to continuous diarrhea. Reports no episodes of diarrhea today. Plan for another dialysis treatment likely tomorrow. Review of Systems Review of Systems: 12 systems were reviewed and are negativ e except for as per HPI. Exam Narrative: General: Chronically ill-appearing male sitting up in bed in no acute distress. Weight: 103 kg. BMI: 30.8. HEENT: PERRL, EOMI. Sclera anicteric. Tacky mucous membranes. Neck: Supple. No JVD. Respiratory: Respirations are nonlabored. Fine crackles heard at the bases. Cardiovascular: Regular rate and rhythm with S1-S2. Murmur heard at the left sternal border. Gastrointestinal: Abdomen is soft, who bring, and nondistended with positive bowel sounds. Skin: Warm and dry. Extremities: No cyanosis or clubbing. Pitting edema up to the thighs. Left upper extremity fistula with palpable thrill and bruit. Neurological: Alert. Cranial nerves 2-12 are grossly intact. Delete No gross focal deficits to casual conversation. Psychiatric: Pleasant and cooperative with appropriate mood and affect. Objective Data Vital Signs Vital Signs: Vital Signs - 24 hr 11/11/24 08:55 11/11/24 11:04 11/11/24 11:05 Temperature 97.0 F L Pulse Rate 75 69 69 Respiratory Rate 18 16 13 Blood Pressure 157/72 H 172/81 H Pulse Oximetry 99 99 100 Oxygen Delivery Room Air 11/11/24 11:15 11/11/24 11:16 11/11/24 11:30 Temperature Pulse Rate 69 68 66 Respiratory Rate 15 16 16 Blood Pressure 172/81 H Pulse Oximetry 100 100 97 Oxygen Delivery Room Air 11/11/24 11:32 11/11/24 11:45 11/11/24 11:47 Temperature Pulse Rate 68 69 69 Respiratory Rate 15 14 12 Blood Pressure 186/86 H 179/84 H Pulse Oximetry 98 100 100 Oxygen Delivery 11/11/24 12:00 11/11/24 12:02 11/11/24 12:15 Temperature Pulse Rate 69 69 67 Respiratory Rate 18 15 18 Blood Pressure 197/88 H Pulse Oximetry 100 100 97 Oxygen Delivery 11/11/24 12:17 11/11/24 12:18 11/11/24 12:30 Temperature Pulse Rate 68 67 66 Respiratory Rate 12 13 17 Blood Pressure 174/82 H Pulse Oximetry 96 100 95 Oxygen Delivery 11/11/24 12:32 11/11/24 12:45 11/11/24 12:47 Temperature Pulse Rate 67 67 66 Respiratory Rate 18 21 H 19 Blood Pressure 186/82 H 181/79 H Pulse Oximetry 93 94 94 Oxygen Delivery 11/11/24 13:00 11/11/24 13:01 11/11/24 13:15 Temperature Pulse Rate 70 69 69 Respiratory Rate 17 19 17 Blood Pressure 183/84 H Pulse Oximetry 94 94 96 Oxygen Delivery 11/11/24 13:16 11/11/24 13:30 11/11/24 13:31 Temperature Pulse Rate 69 69 69 Respiratory Rate 17 18 18 Blood Pressure 186/84 H 189/81 H Pulse Oximetry 93 95 99 Oxygen Delivery 11/11/24 13:32 11/11/24 13:45 11/11/24 13:46 Temperature Pulse Rate 68 69 68 Respiratory Rate 17 18 16 Blood Pressure 193/82 H Pulse Oximetry 95 100 96 Oxygen Delivery 11/11/24 14:00 11/11/24 14:01 11/11/24 14:15 Temperature Pulse Rate 73 78 71 Respiratory Rate 17 11 L 12 Blood Pressure 174/88 H Pulse Oximetry 99 100 100 Oxygen Delivery 11/11/24 14:16 11/11/24 14:42 11/11/24 14:43 Temperature Pulse Rate 72 79 75 Respiratory Rate 17 17 13 Blood Pressure 180/89 H 179/84 H Pulse Oximetry 100 100 100 Oxygen Delivery 11/11/24 14:43 11/11/24 14:45 11/11/24 14:46 Temperature Pulse Rate 75 74 73 Respiratory Rate 14 16 15 Blood Pressure 179/84 H 185/89 H Pulse Oximetry 100 100 100 Oxygen Delivery 11/11/24 15:00 11/11/24 15:15 11/11/24 15:30 Temperature Pulse Rate 72 74 73 Respiratory Rate 16 16 12 Blood Pressure Pulse Oximetry 100 100 100 Oxygen Delivery 11/11/24 15:31 11/11/24 15:45 11/11/24 16:00 Temperature Pulse Rate 73 72 72 Respiratory Rate 14 16 17 Blood Pressure 178/83 H Pulse Oximetry 100 100 99 Oxygen Delivery 11/11/24 16:15 11/11/24 16:16 11/11/24 16:30 Temperature Pulse Rate 75 76 74 Respiratory Rate 13 10 L 16 Blood Pressure 193/95 H Pulse Oximetry 100 100 99 Oxygen Delivery 11/11/24 16:45 11/11/24 17:00 11/11/24 17:01 Temperature Pulse Rate 72 69 69 Respiratory Rate 10 L 16 17 Blood Pressure 187/81 H Pulse Oximetry 100 95 94 Oxygen Delivery 11/11/24 17:15 11/11/24 17:30 11/11/24 17:45 Temperature Pulse Rate 71 72 74 Respiratory Rate 17 16 13 Blood Pressure Pulse Oximetry 96 93 96 Oxygen Delivery 11/11/24 17:46 11/11/24 18:00 11/11/24 18:19 Temperature Pulse Rate 74 74 78 Respiratory Rate 18 18 18 Blood Pressure 185/83 H 185/85 H Pulse Oximetry 96 99 98 Oxygen Delivery 11/11/24 18:52 11/11/24 20:00 11/12/24 00:00 Temperature 97.5 F L 98.3 F 99.2 F Pulse Rate 79 75 73 Respiratory Rate 16 16 16 Blood Pressure 182/87 H 177/85 H 177/80 H Pulse Oximetry 99 100 96 Oxygen Delivery 11/12/24 00:02 11/12/24 00:10 11/12/24 04:00 Temperature Pulse Rate 74 73 Respiratory Rate Blood Pressure 172/80 H Pulse Oximetry Oxygen Delivery 11/12/24 05:24 11/12/24 05:24 Temperature 98.1 F 98.1 F Pulse Rate 73 73 Respiratory Rate 16 16 Blood Pressure 173/84 H 173/84 H Pulse Oximetry 100 100 Oxygen Delivery Intake/Output Intake/Output: Intake & Output 11/09/24 11/10/24 11/11/24 11/12/24 23:59 23:59 23:59 23:59 Intake Total 650 Balance 650 Meds/Results Medications: Active Medications Generic Name Dose Route Start Last Admin Trade Name Freq PRN Reason Stop Dose Admin Acetaminophen 650 mg 11/11/24 16:07 Acetaminophen 325 Mg Tablet PO Q4H PRN Mild Pain (1-3) or Fever Amlodipine Besylate 10 mg 11/12/24 09:00 Amlodipine Besylate 10 Mg Tablet PO DAILY [facility] Calcium Acetate 667 mg 11/11/24 22:00 11/11/24 22:41 Calcium Acetate 667 Mg Tablet PO 667 mg QID CHAPARRITA Administration Clopidogrel Bisulfate 75 mg 11/12/24 09:00 Clopidogrel Bisulfate 75 Mg Tablet PO DAILY [facility] Cyclobenzaprine HCl 10 mg 11/11/24 21:56 Cyclobenzaprine Hcl 10 Mg Tablet PO Q8H PRN restless leg(s) Epoetin Jamel-epbx 10,000 units 11/12/24 17:52 Epoetin Jamel-Epbx 10,000 Units/Ml Vial IV PUSH 11/12/24 17:53 ONCE ONE Furosemide 80 mg 11/11/24 22:00 11/11/24 22:41 Furosemide 80 Mg Tablet PO 80 mg Q12H CHAPARRITA Administration Hydralazine HCl 50 mg 11/11/24 22:00 11/11/24 22:41 Hydralazine Hcl 50 Mg Tablet PO 50 mg TID [facility] Administration Albumin Human 50 mls @ 999 mls/hr 11/12/24 05:51 Albutein IVPB 12/12/24 05:50 Q10M PRN HYPOTENSION Metoprolol Succinate 12.5 mg 11/12/24 09:00 Metoprolol Succinate Ext Rel 12.5 Mg Tabcr PO DAILY [facility] Ropinirole HCl 0.25 mg 11/12/24 21:00 Ropinirole Hcl 0.25 Mg Tablet PO [facility] Rosuvastatin Calcium 10 mg 11/12/24 21:00 Rosuvastatin 10 Mg Tablet PO HS [facility] Radiology Results: ITS Impressions Abdomen X-Ray 11/11/24 22:03 IMPRESSION: Nonspecific, nonobstructive bowel gas pattern. Chest X-Ray 11/12/24 06:41 Impression: Clear lungs. Labs Labs: Laboratory Results - last 24 hr 11/11/24 11/12/24 11:15 06:03 WBC 6.7 4.0 L RBC 2.72 L 2.50 L Hgb 9.1 L 8.3 L Hct 27.9 L 26.4 L MCV 102.6 H 105.6 H MCH 33.5 33.2 MCHC 32.6 31.4 L RDW 14.1 14.0 Plt Count 110 L 104 L MPV 9.4 10.0 Immature Gran % (Auto) 0.3 Neut % (Auto) 80.9 H Lymph % (Auto) 8.1 L Tyler % (Auto) 7.5 Eos % (Auto) 2.8 Baso % (Auto) 0.4 Lymph # (Auto) 0.54 L Tyler # (Auto) 0.5 Eos # (Auto) 0.2 Baso # (Auto) 0.0 Abs Immat Gran (auto) 0.02 Absolute Neuts (auto) 5.4 Absolute Nucleated RBC 0.000 Nucleated RBC % 0.0 Sodium 136 L 132 L Potassium 5.1 H 4.9 Chloride 94 L 93 L Carbon Dioxide 18 L 18 L Anion Gap 24 H 21 H BUN 71 H 82 H D Creatinine > 14.00 H 14.76 H Estim Creat Clear Calc 8 8 Estimated GFR 4 L 4 L Glucose 87 97 Calcium 9.6 9.4 Phosphorus 7.6 H Magnesium 2.9 H Total Bilirubin 0.4 AST 17 ALT 18 Alkaline Phosphatase 96 Total Protein 8.0 Albumin 4.8 Lipase 17 L Quality VTE Prophylaxis VTE prophylaxis: pharmacologic ordered
[2024-11-12 07:23] LABS: Hepatitis B Surface Antigen Negative (Negative)
[2024-11-12] MEDS: CALCIUM ACETATE 667 MG TABLET PO ×4 (07:59→21:01)
[2024-11-12] MEDS: CLOPIDOGREL BISULFATE 75 MG TABLET PO (08:00)
[2024-11-12] MEDS: hydrALAZINE HCL 50 MG TABLET PO ×3 (08:00→16:16)
[2024-11-12] MEDS: METOPROLOL SUCCINATE EXT REL 12.5 MG TABCR PO (08:00)
[2024-11-12] MEDS: amLODIPine BESYLATE 10 MG TABLET PO (08:00)
[2024-11-12] MEDS: FUROSEMIDE 80 MG TABLET PO ×2 (08:00→21:00)
--- NOTE | 2024-11-12 08:52 | PC.NURSE ---
To Dialysis per hospital bed.
[2024-11-12 09:17] LABS: MRSA (PCR) NOT DETECTED (NOT DETECTE)
[2024-11-12 11:19] LABS: Hepatitis B Surface Anti Res Indeterminate
[2024-11-12] MEDS: EPOETIN ALFA-EPBX 10,000 UNITS/ML VIAL 10000 UNITS IV PUSH (11:26)
--- NOTE | 2024-11-12 12:20 | P.CONNP_ITS ---
Assessment and Plan Assessment and plan (1) End stage renal disease: Code(s): N18.6 - End stage renal disease Status: Chronic Assessment and Plan: * HD today * likely HD tomorrow (since missed treatments on Saturday and Saturday) * follow electrolytes, volume status, and clearance * outpatient dialysis center = [facility] * primary communications strategist = Dr. Sharon Farnsworth (2) Diarrhea: Code(s): R19.7 - Diarrhea, unspecified Status: Acute Assessment and Plan: * apparently started last week on Saturday (11/08) * follow stool studies * imaging to date negative * interestingly, no episodes since admission * also with history of long standing constipation * this was apparently worsened by recent addition of phosphate binders * advance diet as tolerated * continue supportive therapy (3) Volume overload: Code(s): E87.70 - Fluid overload, unspecified Status: Acute Assessment and Plan: * despite diarrhea, he has significant swelling/edema * based on admission weight, almost 13kg above dry weight * reportedly has large fluid gains inbetween dialysis treatments * this was likely worsened by his missed treatments this week * aggressive fluid removal with dialysis as tolerated (4) Hypertension: Code(s): I10 - Essential (primary) hypertension Status: Acute Assessment and Plan: * elevated on admission * aggressive fluid removal with HD may help * resume home medications (amlodipine, hydralazine, metoprolol) * follow trend of hemodynamics (5) Anemia: Code(s): D64.9 - Anemia, unspecified Status: Chronic Assessment and Plan: * due to ESRD likely worsened by acute illness and missed doses of RAVINDER * Epogen with HD * follow trend of H/H (6) Coronary artery disease: Code(s): I25.10 - Atherosclerotic heart disease of [place] coronary artery without angina pectoris Status: Chronic Assessment and Plan: * continue plavix and statin I will continue to follow the patient with you while he remains hospitalized and make further recommendations as deemed necessary. Thank you for allowing me to participate in the care of this patient. L History of Present Illness Reason for Consult Consult date: 11/12/24 Reason for consult: end stage renal disease Chief Complaint Chief complaint: DIARRHEA,HEMODIALYSIS PATIENT, History of Present Illness Narrative: The patient is a 44-year-old male with a past medical history as outlined below who presented to [facility] Emergency Room due to complaints of diarrhea. The patient actually has chronic problems with constipation which seems to have worsened when he was initiated on phosphate binder therapy for his renal osteodystrophy. He usually takes stool softener/ laxatives every evening before he goes to bed. However, on late Saturday evening (11/08) and early Saturday morning (11/09), he started having significant diarrhea with so many episodes that he was unable to keep count. He described the diarrhea as watery with a brown/dark greenish color to his stools. In his attempt to alleviate this symptom, he took Pepto-Bismol with some mild improvement but he continued to have diarrhea. He was unable to go to his outpatient dialysis treatment on Saturday since he was in the bathroom most the day with his diarrhea. He attempted to go to dialysis on Saturday but once again was unable to stay for his treatment due to the severity of his diarrhea. Since he has not gone to dialysis, he has noticed increasing swelling edema particularly in his lower extremities. He gives no history with regard to fevers, chills, diaphoresis, abdominal pain, bloating, belching, melena, hematochezia, chest pain, shortness of breath, dizziness, or lightheadedness. He denies any sick contacts, recent travel, or recent antibiotic use. Given the persistence of his symptoms of diarrhea and the concerns that he has not had dialysis for his last to schedule treatments, he came to the ER for further assessment. Workup and evaluation emergency room demonstrated the patient be hemodynamically stable if not hypertensive and afebrile. Routine blood work demonstrated white blood cell count of 6.7, hemoglobin 9.1, platelet count 110, and a chemistry panel that was consistent with his known history of end-stage renal disease without any significant electrolyte abnormalities although there was the presence of a mild acidosis and a potassium on the higher side of normal. Given his ongoing diarrhea and the need for renal replacement therapy/dialysis, he was admitted to the hospital for further evaluation therapy. Renal consultation was requested due to his end-stage renal disease. The patient normally dialyzed on a Saturday, Saturday, Saturday dialysis schedule at [facility] under the care of Dr. Sharon Farnsworth. from a dialysis perspective, he is usually compliant with his treatments and has relative stability in his monthly labs however he does have ongoing issues and problems with significant fluid gains in between his dialysis treatments and is sometimes required an extra session of dialysis or dry ultrafiltration in effort to optimize his volume status. As already mentioned, he was unable to go to his dialysis treatments on Saturday and Saturday due to the severity of his diarrhea. This is further complicated by the fact that he has noticed increasing swelling and edema particularly in his lower extremities since his last dialysis treatment almost a week ago. Currently, at the time my evaluation, he does not appear to be any acute distress and is currently tolerating his dialysis treatment (he was seen on HD at 12:15PM). Review of Systems 2 Review of Systems: As per HPI. [facility] Past Medical History Medical History (Updated 11/13/24 @ 19:01 by Dalton Sweet MD) Coronary artery disease Anemia in chronic kidney disease Hyperlipidemia Hypertension End-stage renal disease on hemodialysis on transplant list at [facility] Surgical History Surgical History (Updated 11/11/24 @ 21:49 by Jahaira Escalante PA-C) History of cardiac catheterization (05/2024) History of coronary artery stent placement (05/2024) at [facility] Status post creation of arteriovenous fistula left upper extremity Family History Family History Mother Acute myocardial infarction Father Acute myocardial infarction Sibling Diabetes mellitus Social History Social History (Updated 11/11/24 @ 21:50 by Jahaira Escalante PA-C) Social History: Surrogate medical decision maker: Virginia Bustamante, girlfriend. Code status: Full code. Years smoked: 23 Smoking status: Former smoker Tobacco type: cigars Smoking end date: 09/20/23 Alcohol intake: never Substance use: former Substance use type: marijuana Do You Feel Safe in your Home?: Yes Lack of Transportation: No Lack of Food: Never True Current Housing: I Have Housing Concerned About Future Housing: No Difficulty Paying Gas/Electric Bills: No Difficulty Paying for Meds: No Currently Unemployed: YES Education: High School Diploma/GED Difficulty w/ Childcare or Family Care: No Additional living arrangements comments: Lives with girlfriend. Additional occupation/education comments: Disabled. Spiritual care concerns: No Meds Home Medications and Allergies Home Medications ?Medication ?Instructions ?Recorded ?Confirmed ?Type amlodipine 10 mg tablet 10 mg PO DAILY 11/11/24 11/11/24 History calcium acetate(phosphat bind) 667 667 mg PO QID 11/11/24 11/11/24 History mg capsule clopidogrel 75 mg tablet 75 mg PO DAILY 11/11/24 11/11/24 History cyclobenzaprine 10 mg tablet 10 mg PO Q8H PRN restless leg(s) 11/11/24 11/11/24 History furosemide 80 mg tablet 80 mg PO Q12H 11/11/24 11/11/24 History hydralazine 50 mg tablet 50 mg PO TID 11/11/24 11/11/24 History metoprolol succinate 25 mg 12.5 mg PO DAILY 11/11/24 11/11/24 History tablet,extended release 24 hr peg-electrolyte solution 420 gram 240 ml PO DAILY PRN constipation 11/11/24 11/11/24 History oral solution ropinirole 0.25 mg tablet 0.25 mg PO HS 11/11/24 11/11/24 History rosuvastatin 10 mg tablet 10 mg PO HS 11/11/24 11/11/24 History Allergies Allergy/AdvReac Type Severity Reaction Status Date / Time No Known Allergies Allergy Verified 11/11/24 11:20 Vital Signs Vital Signs Temp Pulse Resp BP Pulse Ox O2 Del Method FiO2 11/12/24 12:15 67 169/77 H 11/12/24 12:00 64 11/12/24 12:00 65 181/78 H 11/12/24 11:45 66 171/78 H 11/12/24 11:30 70 182/81 H 11/12/24 11:15 69 171/81 H 11/12/24 11:00 68 169/80 H 11/12/24 10:45 68 165/76 H 11/12/24 10:30 69 166/77 H 11/12/24 10:15 69 167/80 H 11/12/24 10:00 70 171/80 H 11/12/24 09:45 71 164/79 H 11/12/24 09:31 72 161/88 H 11/12/24 09:15 69 174/82 H 11/12/24 09:07 70 174/84 H 11/12/24 08:54 98.1 F 71 18 168/82 H 99 11/12/24 08:00 69 11/12/24 08:00 Room Air 11/12/24 08:00 72 11/12/24 07:22 97 Room Air 21 11/12/24 05:24 98.1 F 73 16 173/84 H 100 11/12/24 05:24 98.1 F 73 16 173/84 H 100 11/12/24 04:00 73 11/12/24 00:10 172/80 H 11/12/24 00:02 74 11/12/24 00:00 99.2 F 73 16 177/80 H 96 11/11/24 20:00 98.3 F 75 16 177/85 H 100 11/11/24 18:52 97.5 F L 79 16 182/87 H 99 11/11/24 18:19 78 18 185/85 H 98 11/11/24 18:00 74 18 99 11/11/24 17:46 74 18 185/83 H 96 11/11/24 17:45 74 13 96 11/11/24 17:30 72 16 93 11/11/24 17:15 71 17 96 11/11/24 17:01 69 17 187/81 H 94 11/11/24 17:00 69 16 95 11/11/24 16:45 72 10 L 100 11/11/24 16:30 74 16 99 11/11/24 16:16 76 10 L 193/95 H 100 11/11/24 16:15 75 13 100 11/11/24 16:00 72 17 99 11/11/24 15:45 72 16 100 11/11/24 15:31 73 14 178/83 H 100 11/11/24 15:30 73 12 100 11/11/24 15:15 74 16 100 11/11/24 15:00 72 16 100 11/11/24 14:46 73 15 185/89 H 100 11/11/24 14:45 74 16 100 11/11/24 14:43 75 14 179/84 H 100 11/11/24 14:43 75 13 179/84 H 100 11/11/24 14:42 79 17 100 11/11/24 14:16 72 17 180/89 H 100 11/11/24 14:15 71 12 100 11/11/24 14:01 78 11 L 174/88 H 100 11/11/24 14:00 73 17 99 11/11/24 13:46 68 16 193/82 H 96 11/11/24 13:45 69 18 100 11/11/24 13:32 68 17 95 11/11/24 13:31 69 18 189/81 H 99 11/11/24 13:30 69 18 95 11/11/24 13:16 69 17 186/84 H 93 11/11/24 13:15 69 17 96 11/11/24 13:01 69 19 183/84 H 94 11/11/24 13:00 70 17 94 11/11/24 12:47 66 19 181/79 H 94 11/11/24 12:45 67 21 H 94 Exam 2 Narrative: GENERAL APPEARANCE: well developed well nourished male in no acute distress HEENT: normocephalic, atraumatic, normal conjunctiva and sclera, nares patient NECK: no lymphadenopathy, thyromegaly, or JVD MOUTH: normal lips, teeth, and gums CARDIOVASCULAR: RRR, normal S1 and S2, no rub detected RESPIRATORY: clear to auscultation bilaterally ABDOMEN: soft, nontender, nondistended, positive bowel sounds present EXTREMITIES: no evidence of cyanosis, clubbing, 2+ edema NEUROLOGICAL: alert and oriented x 3; CN II - XII intact bilaterally; no focal deficits noted Results Lab Results 11/13/24 08:00 11/13/24 08:00 Lab results: Most recent lab results Calcium 9.4 mg/dL (8.4-10.2) 11/12/24 06:03 Phosphorus 7.6 mg/dL (2.5-4.5) H 11/12/24 06:03 Magnesium 2.9 mg/dL (1.6-2.3) H 11/12/24 06:03
--- NOTE | 2024-11-12 13:22 | PC.NURSE ---
Returned to room from Dialysis per hospital bed.
[2024-11-12] MEDS: ROSUVASTATIN 10 MG TABLET PO (21:01)
[2024-11-12] MEDS: rOPINIRole HCL 0.25 MG TABLET PO (21:01)
[2024-11-13] VITALS (26 sets, daily range): BP systolic 135–189; BP diastolic 56–89; PULSE 62–72; RESP 15–20; TEMP 36.4–37; O2SAT 94–99
--- NOTE | 2024-11-13 07:03 | P.PNIM_ITS ---
Progress Note: A&P Assessment and Plan (1) Diarrhea: Code(s): R19.7 - Diarrhea, unspecified Status: Acute Assessment and Plan: * Started Saturday * History of long standing constipation, worsened by recent addition of Phosphate binders * Stool culture and C. Diff * KUB: Nonspecific, nonobstructive bowel gas pattern. * Less likely infectious * Imodium PRN * Improved (2) End-stage renal disease on hemodialysis: Code(s): N18.6 - End stage renal disease; Z99.2 - Dependence on renal dialysis Status: Acute Assessment and Plan: * Creatinine: 14.76, GFR: 4, BUN: 82 * Trend renal function * trend electrolytes, correct as needed * Dialysis M/W/F * Missed Saturday/Saturday dialysis d/t diarrhea * HD yesterday (11/12), HD today (11/13) * Swelling/edema improved, no adventitious lung sounds (3) Volume overload: Code(s): E87.70 - Fluid overload, unspecified Status: Acute Assessment and Plan: * See above, likely secondary to missed dialysis * Chest XR: Lungs are clear, without focal consolidation or pleural effusion. Cardiomediastinal silhouette is borderline enlarged. Bones and soft tissues are unremarkable. * Lower extremities fluid overloaded despite diarrhea * 13+ kg above previous admission weight * Swelling/edema improving (4) Electrolyte abnormality: Code(s): E87.8 - Other disorders of electrolyte and fluid balance, not elsewhere classified Status: Acute Assessment and Plan: * ED workup: NA 136, K 5.1, Cl 94, Phosphorus 7.6, Mg 2.9, Ca 9.4 * Monitor CMP daily * Supplement as needed (5) Anemia in chronic kidney disease: Code(s): N18.9 - Chronic kidney disease, unspecified; D63.1 - Anemia in chronic kidney disease Status: Acute Assessment and Plan: * Hgb 8.3, RBC 2.5, Hct 26.4 * add iron, TIBC, ferritin, B12, folic acid, and TSH * transfuse if <7 * trend H&H (6) Hypertension: Code(s): I10 - Essential (primary) hypertension Status: Acute Assessment and Plan: * chronic * continue amlodipine, hydralazine, metoprolol (7) Coronary artery disease: Code(s): I25.10 - Atherosclerotic heart disease of [place] coronary artery without angina pectoris Status: Acute Assessment and Plan: * Rosuvastatin 10mg Time Spent With Patient Time: Subjective Date/time seen: 11/13/24 07:03 Interval history: 44-year-old male with ESRD reportedly secondary to significant NSAID on hemodialysis for the last 6 years, CAD with history of stents, HTN, hyperlipidemia, and anemia who presented to the ED with diarrhea and in need of dialysis. 11/13/2024 Pt examined undergoing dialysis at time of examination. At this time, the patient is feeling very well and states that his lower extremity swelling/heaviness feels greatly improved. Nephro following. Will continue to monitor blood work and systemic swelling. Pt states he has not had any diarrhea since he has been admitted. Plan to advance diet to assess if able to tolerate foods without any n/v. He denies any cp, SOB, or abdominal pain at this time. Review of Systems Review of Systems: 12 systems were reviewed and are negativ e except for as per HPI. Exam Narrative: General: Chronically ill-appearing male sitting up in bed in no acute distress. Weight: 103 kg. BMI: 30.8. HEENT: PERRL, EOMI. Sclera anicteric. Tacky mucous membranes. Neck: Supple. No JVD. Respiratory: Respirations are nonlabored. Lung sounds normal. Cardiovascular: Regular rate and rhythm with S1-S2. Murmur heard at the left sternal border. Gastrointestinal: Abdomen is soft, who bring, and nondistended with positive bowel sounds. Skin: Warm and dry. Extremities: No cyanosis or clubbing. Pitting edema up to the thighs. Left upper extremity fistula with palpable thrill and bruit. Neurological: Alert. Cranial nerves 2-12 are grossly intact. Delete No gross focal deficits to casual conversation. Psychiatric: Pleasant and cooperative with appropriate mood and affect. Objective Data Vital Signs Vital Signs: Vital Signs - 24 hr 11/12/24 07:22 11/12/24 08:00 11/12/24 08:00 Temperature Pulse Rate 72 Respiratory Rate Blood Pressure Pulse Oximetry 97 Oxygen Delivery Room Air Room Air Fraction of Inspired Oxygen 21 11/12/24 08:00 11/12/24 08:54 11/12/24 09:07 Temperature 98.1 F Pulse Rate 69 71 70 Respiratory Rate 18 Blood Pressure 168/82 H 174/84 H Pulse Oximetry 99 Oxygen Delivery Fraction of Inspired Oxygen 11/12/24 09:15 11/12/24 09:31 11/12/24 09:45 Temperature Pulse Rate 69 72 71 Respiratory Rate Blood Pressure 174/82 H 161/88 H 164/79 H Pulse Oximetry Oxygen Delivery Fraction of Inspired Oxygen 11/12/24 10:00 11/12/24 10:15 11/12/24 10:30 Temperature Pulse Rate 70 69 69 Respiratory Rate Blood Pressure 171/80 H 167/80 H 166/77 H Pulse Oximetry Oxygen Delivery Fraction of Inspired Oxygen 11/12/24 10:45 11/12/24 11:00 11/12/24 11:15 Temperature Pulse Rate 68 68 69 Respiratory Rate Blood Pressure 165/76 H 169/80 H 171/81 H Pulse Oximetry Oxygen Delivery Fraction of Inspired Oxygen 11/12/24 11:30 11/12/24 11:45 11/12/24 12:00 Temperature Pulse Rate 70 66 65 Respiratory Rate Blood Pressure 182/81 H 171/78 H 181/78 H Pulse Oximetry Oxygen Delivery Fraction of Inspired Oxygen 11/12/24 12:00 11/12/24 12:15 11/12/24 12:30 Temperature Pulse Rate 64 67 66 Respiratory Rate Blood Pressure 169/77 H 171/74 H Pulse Oximetry Oxygen Delivery Fraction of Inspired Oxygen 11/12/24 12:37 11/12/24 12:41 11/12/24 16:00 Temperature 97.9 F Pulse Rate 69 68 64 Respiratory Rate 16 Blood Pressure 175/76 H 184/79 H Pulse Oximetry 99 Oxygen Delivery Fraction of Inspired Oxygen 11/12/24 16:00 11/12/24 20:00 11/12/24 20:00 Temperature 97.7 F 97.9 F Pulse Rate 72 66 66 Respiratory Rate 18 20 Blood Pressure 143/76 H 136/68 Pulse Oximetry 100 100 Oxygen Delivery Fraction of Inspired Oxygen 11/13/24 00:00 11/13/24 00:00 11/13/24 04:00 Temperature 98.5 F Pulse Rate 66 64 65 Respiratory Rate 18 Blood Pressure 135/62 Pulse Oximetry 94 Oxygen Delivery Fraction of Inspired Oxygen 11/13/24 04:00 Temperature 97.9 F Pulse Rate 68 Respiratory Rate 20 Blood Pressure 153/70 H Pulse Oximetry 99 Oxygen Delivery Fraction of Inspired Oxygen Intake/Output Intake/Output: Intake & Output 11/10/24 11/11/24 11/12/24 11/13/24 23:59 23:59 23:59 23:59 Intake Total 1747 200 Output Total 4400 Balance -2653 200 Meds/Results Medications: Active Medications Generic Name Dose Route Start Last Admin Trade Name Freq PRN Reason Stop Dose Admin Acetaminophen 650 mg 11/11/24 16:07 Acetaminophen 325 Mg Tablet PO Q4H PRN Mild Pain (1-3) or Fever Amlodipine Besylate 10 mg 11/12/24 09:00 11/12/24 08:00 Amlodipine Besylate 10 Mg Tablet PO 10 mg DAILY CHAPARRITA Administration Calcium Acetate 667 mg 11/11/24 22:00 11/12/24 21:01 Calcium Acetate 667 Mg Tablet PO 667 mg QID CHAPARRITA Administration Clopidogrel Bisulfate 75 mg 11/12/24 09:00 11/12/24 08:00 Clopidogrel Bisulfate 75 Mg Tablet PO 75 mg DAILY CHAPARRITA Administration Cyclobenzaprine HCl 10 mg 11/11/24 21:56 Cyclobenzaprine Hcl 10 Mg Tablet PO Q8H PRN restless leg(s) Furosemide 80 mg 11/11/24 22:00 11/12/24 21:00 Furosemide 80 Mg Tablet PO 80 mg Q12H CHAPARRITA Administration Hydralazine HCl 50 mg 11/11/24 22:00 11/12/24 16:16 Hydralazine Hcl 50 Mg Tablet PO 50 mg TID CHAPARRITA Administration Albumin Human 50 mls @ 999 mls/hr 11/12/24 05:51 Albutein IVPB 12/12/24 05:50 Q10M PRN HYPOTENSION Lidocaine/Prilocaine 1 each 11/12/24 12:23 Lidocaine/Prilocaine Cream 2.5-2.5% Tube TOPICAL 11/18/24 23:59 ONCE PRN Pain Metoprolol Succinate 12.5 mg 11/12/24 09:00 11/12/24 08:00 Metoprolol Succinate Ext Rel 12.5 Mg Tabcr PO 12.5 mg DAILY CHAPARRITA Administration Ropinirole HCl 0.25 mg 11/12/24 21:00 11/12/24 21:01 Ropinirole Hcl 0.25 Mg Tablet PO 0.25 mg HS CHAPARRITA Administration Rosuvastatin Calcium 10 mg 11/12/24 21:00 11/12/24 21:01 Rosuvastatin 10 Mg Tablet PO 10 mg HS CHAPARRITA Administration Radiology Results: ITS Impressions Abdomen X-Ray 11/11/24 22:03 IMPRESSION: Nonspecific, nonobstructive bowel gas pattern. Chest X-Ray 11/12/24 06:41 Impression: Clear lungs. Labs Labs: Laboratory Results - last 24 hr 11/12/24 11/12/24 06:03 07:58 TSH (Reflex) 3.170 Nasal MRSA (PCR) Not detected Hep Bs Antigen Negative Hep Bs Antibody Indeterminate Quality VTE Prophylaxis VTE prophylaxis: pharmacologic ordered
[2024-11-13] MEDS: LIDOCAINE/PRILOCAINE CREAM 2.5-2.5% TUBE 1 EACH TOPICAL (08:08)
[2024-11-13 08:42] LABS: Alanine Aminotransferase 16 U/L (6-50); Albumin Level 4.5 g/dL (3.5-5.1); Alkaline Phosphatase 99 U/L (38-126); Anion Gap 17 mmol/L (4-12); Aspartate Amino Transferase 16 U/L (17-59); Bilirubin,Total 0.5 mg/dL (0.2-1.3); Blood Urea Nitrogen 46 mg/dL (9-20); Calcium 9.7 mg/dL (8.4-10.2); Carbon Dioxide 24 mmol/L (22-30); Chloride 93 mmol/L (98-107); Estimated CRCL calculation 11 ml/min; Estimated Glomerular Filt Rate 5; Glucose 81 mg/dL (65-110); Potassium 4.2 mmol/L (3.4-5.0); Sodium 134 mmol/L (137-145)
[2024-11-13 08:57] LABS: Basophils Percent Auto 1.2 % (0.2-1.2); Eosinophils Absolute Auto 0.2 K/mm3 (0-0.3); Eosinophils Percent Auto 5.5 % (0-4.4); Hematocrit 29.7 % (42.0-52.0); Hemoglobin 9.6 g/dL (14.0-18.0); Immature Granulocyte Absolute 0.02 K/mm3 (0.00-0.031); Immature Granulocyte Percent A 0.6 % (0-0.5); Lymphocytes Absolute Auto 0.68 K/mm3 (0.9-3.2); Lymphocytes Percent Auto 19.7 % (18.3-44.2); Mean Corpuscular HGB Conc 32.3 g/dl (32-36); Mean Corpuscular Hemoglobin 33.4 pg (26-34); Mean Corpuscular Volume 103.5 fl (80-100); Mean Platelet Volume 10.3 fl (7.4-10.4); Monocytes Absolute Auto 0.5 K/mm3 (0.1-0.6); Neutrophils Absolute Auto 2.1 K/mm3 (1.3-6.7); Platelet Count Result 110 k/mm3 (150-375); Red Blood Count 2.87 M/mm3 (4.6-6.20); Red Cell Distribution Width 14.1 % (11.5-14.5); White Blood Count 3.5 K/mm3 (4.5-10.0)
--- NOTE | 2024-11-13 09:30 | P.PNNP_ITS ---
Progress Note: A&P Assessment and Plan (1) End stage renal disease: Code(s): N18.6 - End stage renal disease Status: Chronic Assessment and Plan: * HD today * follow electrolytes, volume status, and clearance * outpatient dialysis center = [facility] * primary filling operator = Dr. Farnsworth (2) Diarrhea: Code(s): R19.7 - Diarrhea, unspecified Status: Acute Assessment and Plan: * apparently started last week on Saturday (11/08) * follow stool studies * imaging to date negative * interestingly, no episodes since admission * also with history of long standing constipation * this was apparently worsened by recent increase of phosphate binders * advance diet as tolerated * continue supportive therapy (3) Volume overload: Code(s): E87.70 - Fluid overload, unspecified Status: Acute Assessment and Plan: * despite diarrhea, he has significant swelling/edema * based on admission weight, almost 13kg above dry weight * reportedly has large fluid gains in-between dialysis treatments * this was likely worsened by his missed treatments this week * fluid removal with HD yesterday and today * likely plan dry ultrafiltration tomorrow for further fluid removal (4) Hypertension: Code(s): I10 - Essential (primary) hypertension Status: Acute Assessment and Plan: * elevated on admission * aggressive fluid removal with HD/DUF may help * resume home medications (amlodipine, hydralazine, metoprolol) * follow trend of hemodynamics (5) Anemia: Code(s): D64.9 - Anemia, unspecified Status: Chronic Assessment and Plan: * due to ESRD likely worsened by acute illness and missed doses of RAVINDER * Epogen with HD * follow trend of H/H (6) Coronary artery disease: Code(s): I25.10 - Atherosclerotic heart disease of [place] coronary artery without angina pectoris Status: Chronic Assessment and Plan: * continue plavix and statin Will continue to follow. L Subjective Date/time seen: 11/13/24 09:30 Interval history: Follow-up for end stage renal disease on hemodialysis. Tolerated dialysis treatment yesterday without any issues or problems; tolerating dialysis treatment at the time of my visit (seen on HD at 9:20AM); no apparent distress noted when seen; diarrhea appears to have subsided and diet is being advanced; lower extremity swelling/edema is a bit better. Exam 2 Narrative: General: WD/WN male in NAD Heart: normal S1 and S2; no rub Lungs: clear anteriorly Abdomen: soft, nontender, nondistended, positive bowel sounds Extremities: no cyanosis or clubbing; 1 - 2+ edema Skin: warm and dry Objective Data Vital Signs Vital Signs: Vital Signs Temp Pulse Resp BP Pulse Ox 11/13/24 09:30 65 171/83 H 11/13/24 09:15 67 177/81 H 11/13/24 09:00 66 166/80 H 11/13/24 08:45 66 178/84 H 11/13/24 08:30 66 172/81 H 11/13/24 08:25 69 180/86 H 11/13/24 08:14 97.9 F 70 18 174/84 H 11/13/24 04:00 97.9 F 68 20 153/70 H 99 11/13/24 04:00 65 11/13/24 00:00 64 11/13/24 00:00 98.5 F 66 18 135/62 94 11/12/24 20:00 66 11/12/24 20:00 97.9 F 66 20 136/68 100 11/12/24 16:00 97.7 F 72 18 143/76 H 100 11/12/24 16:00 64 11/12/24 12:41 97.9 F 68 16 184/79 H 99 11/12/24 12:37 69 175/76 H 11/12/24 12:30 66 171/74 H 11/12/24 12:15 67 169/77 H 11/12/24 12:00 64 11/12/24 12:00 65 181/78 H 11/12/24 11:45 66 171/78 H Intake/Output Intake/Output: Intake & Output 11/10/24 11/11/24 11/12/24 11/13/24 23:59 23:59 23:59 23:59 Intake Total 1747 200 Output Total 4400 Balance -2653 200 Meds/Results Medications: Active Medications Generic Name Dose Route Start Last Admin Trade Name Freq PRN Reason Stop Dose Admin Acetaminophen 650 mg 11/11/24 16:07 Acetaminophen 325 Mg Tablet PO Q4H PRN Mild Pain (1-3) or Fever Amlodipine Besylate 10 mg 11/12/24 09:00 11/12/24 08:00 Amlodipine Besylate 10 Mg Tablet PO 10 mg DAILY CHAPARRITA Administration Calcium Acetate 667 mg 11/11/24 22:00 11/12/24 21:01 Calcium Acetate 667 Mg Tablet PO 667 mg QID CHAPARRITA Administration Clopidogrel Bisulfate 75 mg 11/12/24 09:00 11/12/24 08:00 Clopidogrel Bisulfate 75 Mg Tablet PO 75 mg DAILY CHAPARRITA Administration Cyclobenzaprine HCl 10 mg 11/11/24 21:56 Cyclobenzaprine Hcl 10 Mg Tablet PO Q8H PRN restless leg(s) Furosemide 80 mg 11/11/24 22:00 11/12/24 21:00 Furosemide 80 Mg Tablet PO 80 mg Q12H CHAPARRITA Administration Hydralazine HCl 50 mg 11/11/24 22:00 11/12/24 16:16 Hydralazine Hcl 50 Mg Tablet PO 50 mg TID CHAPARRITA Administration Albumin Human 50 mls @ 999 mls/hr 11/12/24 05:51 Albutein IVPB 12/12/24 05:50 Q10M PRN HYPOTENSION Lidocaine/Prilocaine 1 each 11/12/24 12:23 11/13/24 08:08 Lidocaine/Prilocaine Cream 2.5-2.5% Tube TOPICAL 11/18/24 23:59 1 each ONCE PRN Administration Pain Metoprolol Succinate 12.5 mg 11/12/24 09:00 11/12/24 08:00 Metoprolol Succinate Ext Rel 12.5 Mg Tabcr PO 12.5 mg DAILY CHAPARRITA Administration Ropinirole HCl 0.25 mg 11/12/24 21:00 11/12/24 21:01 Ropinirole Hcl 0.25 Mg Tablet PO 0.25 mg HS CHAPARRITA Administration Rosuvastatin Calcium 10 mg 11/12/24 21:00 11/12/24 21:01 Rosuvastatin 10 Mg Tablet PO 10 mg HS CHAPARRITA Administration Radiology Results: ITS Impressions Abdomen X-Ray 11/11/24 22:03 IMPRESSION: Nonspecific, nonobstructive bowel gas pattern. Chest X-Ray 11/12/24 06:41 Impression: Clear lungs. Labs Labs: Laboratory Tests 11/13/24 08:00 11/13/24 08:00 Calcium 9.7 Total Bilirubin 0.5 AST 16 L ALT 16 Alkaline Phosphatase 99 Total Protein 8.0 Albumin 4.5 Microbiology 11/11/24 20:39 Blood Blood Culture - Preliminary 11/11/24 20:39 Blood Blood Culture - Preliminary
[2024-11-13] MEDS: SODIUM CHLORIDE 0.9% IV 1,000 ML 999 ML IV CONT (11:25)
[2024-11-13] MEDS: EPOETIN ALFA-EPBX 10,000 UNITS/ML VIAL 10000 UNITS IV PUSH (11:54)
[2024-11-13] MEDS: CLOPIDOGREL BISULFATE 75 MG TABLET PO (12:28)
[2024-11-13] MEDS: CALCIUM ACETATE 667 MG TABLET PO ×3 (12:28→20:42)
[2024-11-13] MEDS: METOPROLOL SUCCINATE EXT REL 12.5 MG TABCR PO (12:28)
[2024-11-13] MEDS: hydrALAZINE HCL 50 MG TABLET PO ×2 (12:28→17:38)
[2024-11-13] MEDS: amLODIPine BESYLATE 10 MG TABLET PO (12:28)
[2024-11-13] MEDS: FUROSEMIDE 80 MG TABLET PO ×2 (12:29→21:10)
[2024-11-13] MEDS: ROSUVASTATIN 10 MG TABLET PO (20:42)
[2024-11-13] MEDS: rOPINIRole HCL 0.25 MG TABLET PO (20:43)
[2024-11-14] VITALS (22 sets, daily range): BP systolic 153–183; BP diastolic 69–86; PULSE 61–83; RESP 14–18; TEMP 36.5–37; O2SAT 98–100
[2024-11-14 05:04] LABS: Basophils Percent Auto 0.9 % (0.2-1.2); Eosinophils Absolute Auto 0.2 K/mm3 (0-0.3); Eosinophils Percent Auto 6.3 % (0-4.4); Hematocrit 28.1 % (42.0-52.0); Hemoglobin 8.9 g/dL (14.0-18.0); Immature Granulocyte Absolute 0.03 K/mm3 (0.00-0.031); Immature Granulocyte Percent A 0.9 % (0-0.5); Lymphocytes Percent Auto 14.4 % (18.3-44.2); Mean Corpuscular HGB Conc 31.7 g/dl (32-36); Mean Corpuscular Hemoglobin 32.7 pg (26-34); Mean Corpuscular Volume 103.3 fl (80-100); Mean Platelet Volume 9.9 fl (7.4-10.4); Monocytes Absolute Auto 0.5 K/mm3 (0.1-0.6); Monocytes Percent Auto 13.8 % (2.6-8.5); Neutrophils Absolute Auto 2.2 K/mm3 (1.3-6.7); Neutrophils Percent Auto 63.7 % (45.5-73.1); Platelet Count Result 111 k/mm3 (150-375); Red Blood Count 2.72 M/mm3 (4.6-6.20); Red Cell Distribution Width 14.1 % (11.5-14.5); White Blood Count 3.5 K/mm3 (4.5-10.0)
[2024-11-14 05:27] LABS: Alanine Aminotransferase 16 U/L (6-50); Albumin Level 4.3 g/dL (3.5-5.1); Alkaline Phosphatase 95 U/L (38-126); Anion Gap 12 mmol/L (4-12); Aspartate Amino Transferase 17 U/L (17-59); Bilirubin,Total 0.4 mg/dL (0.2-1.3); Blood Urea Nitrogen 31 mg/dL (9-20); Calcium 9.5 mg/dL (8.4-10.2); Carbon Dioxide 26 mmol/L (22-30); Chloride 95 mmol/L (98-107); Estimated CRCL calculation 15 ml/min; Estimated Glomerular Filt Rate 8; Glucose 113 mg/dL (65-110); Sodium 133 mmol/L (137-145)
--- NOTE | 2024-11-14 07:00 | P.PNIM_ITS ---
Progress Note: A&P Assessment and Plan (1) Diarrhea: Code(s): R19.7 - Diarrhea, unspecified Status: Acute Assessment and Plan: * Started Saturday * History of long standing constipation, worsened by recent addition of Phosphate binders * Stool culture and C. Diff * KUB: Nonspecific, nonobstructive bowel gas pattern. * Less likely infectious * Imodium PRN * Improved (2) End-stage renal disease on hemodialysis: Code(s): N18.6 - End stage renal disease; Z99.2 - Dependence on renal dialysis Status: Acute Assessment and Plan: * Creatinine: 14.76, GFR: 4, BUN: 82 * Trend renal function * trend electrolytes, correct as needed * Dialysis M/W/F * Missed Saturday/Saturday dialysis d/t diarrhea * HD yesterday (11/12), HD today (11/13) * Swelling/edema improved, no adventitious lung sounds (3) Volume overload: Code(s): E87.70 - Fluid overload, unspecified Status: Acute Assessment and Plan: * See above, likely secondary to missed dialysis * Chest XR: Lungs are clear, without focal consolidation or pleural effusion. Cardiomediastinal silhouette is borderline enlarged. Bones and soft tissues are unremarkable. * Lower extremities fluid overloaded despite diarrhea * 13+ kg above previous admission weight * Swelling/edema improving (4) Electrolyte abnormality: Code(s): E87.8 - Other disorders of electrolyte and fluid balance, not elsewhere classified Status: Acute Assessment and Plan: * ED workup: NA 136, K 5.1, Cl 94, Phosphorus 7.6, Mg 2.9, Ca 9.4 * Monitor CMP daily * Supplement as needed (5) Anemia in chronic kidney disease: Code(s): N18.9 - Chronic kidney disease, unspecified; D63.1 - Anemia in chronic kidney disease Status: Acute Assessment and Plan: * Hgb 8.3, RBC 2.5, Hct 26.4 * add iron, TIBC, ferritin, B12, folic acid, and TSH * transfuse if <7 * trend H&H (6) Hypertension: Code(s): I10 - Essential (primary) hypertension Status: Acute Assessment and Plan: * chronic * continue amlodipine, hydralazine, metoprolol (7) Coronary artery disease: Code(s): I25.10 - Atherosclerotic heart disease of [place] coronary artery without angina pectoris Status: Chronic Assessment and Plan: * Rosuvastatin 10mg Subjective Date/time seen: 11/14/24 07:00 Interval history: 44-year-old male with ESRD reportedly secondary to significant NSAID on hemodialysis for the last 6 years, CAD with history of stents, HTN, hyperlipidemia, and anemia who presented to the ED with diarrhea and in need of dialysis. 11/14/2024 Review of Systems Review of Systems: 12 systems were reviewed and are negativ e except for as per HPI. Exam Narrative: General: Chronically ill-appearing male sitting up in bed in no acute distress. Weight: 103 kg. BMI: 30.8. HEENT: PERRL, EOMI. Sclera anicteric. Tacky mucous membranes. Neck: Supple. No JVD. Respiratory: Respirations are nonlabored. Lung sounds normal. Cardiovascular: Regular rate and rhythm with S1-S2. Murmur heard at the left sternal border. Gastrointestinal: Abdomen is soft, who bring, and nondistended with positive bowel sounds. Skin: Warm and dry. Extremities: No cyanosis or clubbing. No pitting edema in lower extremities, some chronic swelling in BLE. Left upper extremity fistula with palpable thrill and bruit. Neurological: Alert. Cranial nerves 2-12 are grossly intact. Delete No gross focal deficits to casual conversation. Psychiatric: Pleasant and cooperative with appropriate mood and affect. Objective Data Vital Signs Vital Signs: Vital Signs - 24 hr 11/13/24 08:05 11/13/24 08:05 11/13/24 08:14 Temperature 97.9 F Pulse Rate 68 70 Respiratory Rate 18 Blood Pressure 174/84 H Pulse Oximetry Oxygen Delivery Room Air 11/13/24 08:25 11/13/24 08:30 11/13/24 08:45 Temperature Pulse Rate 69 66 66 Respiratory Rate Blood Pressure 180/86 H 172/81 H 178/84 H Pulse Oximetry Oxygen Delivery 11/13/24 09:00 11/13/24 09:15 11/13/24 09:30 Temperature Pulse Rate 66 67 65 Respiratory Rate Blood Pressure 166/80 H 177/81 H 171/83 H Pulse Oximetry Oxygen Delivery 11/13/24 09:45 11/13/24 10:00 11/13/24 10:15 Temperature Pulse Rate 64 66 66 Respiratory Rate Blood Pressure 176/78 H 181/81 H 172/79 H Pulse Oximetry Oxygen Delivery 11/13/24 10:30 11/13/24 10:45 11/13/24 11:00 Temperature Pulse Rate 66 72 70 Respiratory Rate Blood Pressure 188/80 H 189/82 H 188/89 H Pulse Oximetry Oxygen Delivery 11/13/24 11:15 11/13/24 11:30 11/13/24 11:45 Temperature Pulse Rate 65 65 63 Respiratory Rate Blood Pressure 182/81 H 179/80 H 181/83 H Pulse Oximetry Oxygen Delivery 11/13/24 11:56 11/13/24 12:00 11/13/24 12:13 Temperature 97.9 F Pulse Rate 65 63 62 Respiratory Rate 18 Blood Pressure 177/82 H 178/77 H Pulse Oximetry Oxygen Delivery 11/13/24 12:28 11/13/24 14:00 11/13/24 16:00 Temperature 97.5 F L Pulse Rate 66 69 67 Respiratory Rate 15 Blood Pressure 152/76 H Pulse Oximetry 96 Oxygen Delivery 11/13/24 20:00 11/13/24 20:00 11/14/24 00:00 Temperature 97.6 F 98.1 F Pulse Rate 67 67 66 Respiratory Rate 16 16 Blood Pressure 142/56 H 162/82 H Pulse Oximetry 98 99 Oxygen Delivery 11/14/24 00:00 11/14/24 04:00 11/14/24 04:00 Temperature 97.9 F Pulse Rate 66 68 67 Respiratory Rate 14 Blood Pressure 167/75 H Pulse Oximetry 98 Oxygen Delivery Intake/Output Intake/Output: Intake & Output 11/11/24 11/12/24 11/13/24 11/14/24 23:59 23:59 23:59 23:59 Intake Total 1747 540 400 Output Total 4400 4500 Balance -2653 -3960 400 Meds/Results Medications: Active Medications Generic Name Dose Route Start Last Admin Trade Name Freq PRN Reason Stop Dose Admin Acetaminophen 650 mg 11/11/24 16:07 Acetaminophen 325 Mg Tablet PO Q4H PRN Mild Pain (1-3) or Fever Amlodipine Besylate 10 mg 11/12/24 09:00 11/13/24 12:28 Amlodipine Besylate 10 Mg Tablet PO 10 mg DAILY CHAPARRITA Administration Calcium Acetate 667 mg 11/11/24 22:00 11/13/24 20:42 Calcium Acetate 667 Mg Tablet PO 667 mg QID CHAPARRITA Administration Clopidogrel Bisulfate 75 mg 11/12/24 09:00 11/13/24 12:28 Clopidogrel Bisulfate 75 Mg Tablet PO 75 mg DAILY CHAPARRITA Administration Cyclobenzaprine HCl 10 mg 11/11/24 21:56 Cyclobenzaprine Hcl 10 Mg Tablet PO Q8H PRN restless leg(s) Furosemide 80 mg 11/11/24 22:00 11/13/24 21:10 Furosemide 80 Mg Tablet PO 80 mg Q12H CHAPARRITA Administration Hydralazine HCl 50 mg 11/11/24 22:00 11/13/24 17:38 Hydralazine Hcl 50 Mg Tablet PO 50 mg TID CHAPARRITA Administration Albumin Human 50 mls @ 999 mls/hr 11/12/24 05:51 Albutein IVPB 12/12/24 05:50 Q10M PRN HYPOTENSION Lidocaine/Prilocaine 1 each 11/12/24 12:23 11/13/24 08:08 Lidocaine/Prilocaine Cream 2.5-2.5% Tube TOPICAL 11/18/24 23:59 1 each ONCE PRN Administration Pain Metoprolol Succinate 12.5 mg 11/12/24 09:00 11/13/24 12:28 Metoprolol Succinate Ext Rel 12.5 Mg Tabcr PO 12.5 mg DAILY CHAPARRITA Administration Ropinirole HCl 0.25 mg 11/12/24 21:00 11/13/24 20:43 Ropinirole Hcl 0.25 Mg Tablet PO 0.25 mg HS CHAPARRITA Administration Rosuvastatin Calcium 10 mg 11/12/24 21:00 11/13/24 20:42 Rosuvastatin 10 Mg Tablet PO 10 mg HS CHAPARRITA Administration Radiology Results: ITS Impressions Abdomen X-Ray 11/11/24 22:03 IMPRESSION: Nonspecific, nonobstructive bowel gas pattern. Chest X-Ray 11/12/24 06:41 Impression: Clear lungs. Labs Labs: Laboratory Results - last 24 hr 11/13/24 11/14/24 08:00 04:48 WBC 3.5 L 3.5 L RBC 2.87 L 2.72 L Hgb 9.6 L 8.9 L Hct 29.7 L 28.1 L MCV 103.5 H 103.3 H MCH 33.4 32.7 MCHC 32.3 31.7 L RDW 14.1 14.1 Plt Count 110 L 111 L MPV 10.3 9.9 Immature Gran % (Auto) 0.6 H 0.9 H Neut % (Auto) 60.0 63.7 Lymph % (Auto) 19.7 14.4 L [place] % (Auto) 13.0 H 13.8 H Eos % (Auto) 5.5 H 6.3 H Baso % (Auto) 1.2 0.9 Lymph # (Auto) 0.68 L 0.50 L [place] # (Auto) 0.5 0.5 Eos # (Auto) 0.2 0.2 Baso # (Auto) 0.0 0.0 Abs Immat Gran (auto) 0.02 0.03 Absolute Neuts (auto) 2.1 2.2 Absolute Nucleated RBC 0.000 0.000 Nucleated RBC % 0.0 0.0 Sodium 134 L 133 L Potassium 4.2 4.0 Chloride 93 L 95 L Carbon Dioxide 24 26 Anion Gap 17 H 12 BUN 46 H D 31 H D Creatinine 10.30 H 7.65 H Estim Creat Clear Calc 11 15 Estimated GFR 5 L 8 L Glucose 81 113 H Calcium 9.7 9.5 Total Bilirubin 0.5 0.4 AST 16 L 17 ALT 16 16 Alkaline Phosphatase 99 95 Total Protein 8.0 7.0 Albumin 4.5 4.3 Quality VTE Prophylaxis VTE prophylaxis: pharmacologic ordered
[2024-11-14] MEDS: LIDOCAINE/PRILOCAINE CREAM 2.5-2.5% TUBE 1 EACH TOPICAL (07:45)
--- NOTE | 2024-11-14 08:25 | PC.NURSE ---
To Dialysis per hospital bed.
--- NOTE | 2024-11-14 09:08 | P.PNNP_ITS ---
Progress Note: A&P Assessment and Plan (1) End stage renal disease: Code(s): N18.6 - End stage renal disease Status: Chronic Assessment and Plan: * dry ultrafiltration underway * still a bit volume overloaded. Swelling is not so bad * outpatient dialysis center = [facility] * primary manufacturing planner = Dr. Farnsworth (2) Diarrhea: Code(s): R19.7 - Diarrhea, unspecified Status: Acute Assessment and Plan: * apparently started last week on Saturday (11/08) * follow stool studies * imaging to date negative * interestingly, no episodes since admission * also with history of long standing constipation * this was apparently worsened by recent increase of phosphate binders * advance diet as tolerated * continue supportive therapy (3) Volume overload: Code(s): E87.70 - Fluid overload, unspecified Status: Acute Assessment and Plan: * despite diarrhea, he has significant swelling/edema * continuing to remove fluid with the dialysis machine (4) Hypertension: Code(s): I10 - Essential (primary) hypertension Status: Acute Assessment and Plan: * elevated on admission * volume overload likely contributing * resumed home medications (amlodipine, hydralazine, metoprolol) * or adjustments tomorrow if still here or as an outpatient if not (5) Anemia: Code(s): D64.9 - Anemia, unspecified Status: Chronic Assessment and Plan: * due to ESRD likely worsened by acute illness and missed doses of RAVINDER * Epogen with HD * follow trend of H/H (6) Coronary artery disease: Code(s): I25.10 - Atherosclerotic heart disease of [place] coronary artery without angina pectoris Status: Chronic Assessment and Plan: * continue plavix and statin * no chest pain Subjective Date/time seen: 11/14/24 09:08 Interval history: Patient is on DUF, morgan it well. Pt seen at 10:00 a.m. removing about 4 to4.5L and blood pressure doing well so far at 155 Exam Narrative: General: WD/WN male in NAD Heart: normal S1 and S2; no rub or gallop Lungs: clear anteriorly Abdomen: soft, nontender, nondistended, positive bowel sounds Extremities: no cyanosis or clubbing; 1+ edema Skin: no rash Objective Data Vital Signs Vital Signs: Vital Signs - 24 hr 11/13/24 09:15 11/13/24 09:30 11/13/24 09:45 Temperature Pulse Rate 67 65 64 Respiratory Rate Blood Pressure 177/81 H 171/83 H 176/78 H Pulse Oximetry Oxygen Delivery 11/13/24 10:00 11/13/24 10:15 11/13/24 10:30 Temperature Pulse Rate 66 66 66 Respiratory Rate Blood Pressure 181/81 H 172/79 H 188/80 H Pulse Oximetry Oxygen Delivery 11/13/24 10:45 11/13/24 11:00 11/13/24 11:15 Temperature Pulse Rate 72 70 65 Respiratory Rate Blood Pressure 189/82 H 188/89 H 182/81 H Pulse Oximetry Oxygen Delivery 11/13/24 11:30 11/13/24 11:45 11/13/24 11:56 Temperature Pulse Rate 65 63 65 Respiratory Rate Blood Pressure 179/80 H 181/83 H 177/82 H Pulse Oximetry Oxygen Delivery 11/13/24 12:00 11/13/24 12:13 11/13/24 12:28 Temperature 97.9 F Pulse Rate 63 62 66 Respiratory Rate 18 Blood Pressure 178/77 H Pulse Oximetry Oxygen Delivery 11/13/24 14:00 11/13/24 16:00 11/13/24 20:00 Temperature 97.5 F L 97.6 F Pulse Rate 69 67 67 Respiratory Rate 15 16 Blood Pressure 152/76 H 142/56 H Pulse Oximetry 96 98 Oxygen Delivery 11/13/24 20:00 11/14/24 00:00 11/14/24 00:00 Temperature 98.1 F Pulse Rate 67 66 66 Respiratory Rate 16 Blood Pressure 162/82 H Pulse Oximetry 99 Oxygen Delivery 11/14/24 04:00 11/14/24 04:00 11/14/24 07:51 Temperature 97.9 F Pulse Rate 68 67 Respiratory Rate 14 Blood Pressure 167/75 H Pulse Oximetry 98 Oxygen Delivery Room Air 11/14/24 08:00 11/14/24 08:33 11/14/24 08:46 Temperature 97.7 F 98.2 F Pulse Rate 66 66 65 Respiratory Rate 16 18 Blood Pressure 153/69 H 169/81 H 166/79 H Pulse Oximetry 100 100 Oxygen Delivery 11/14/24 09:00 Temperature Pulse Rate 70 Respiratory Rate Blood Pressure 174/85 H Pulse Oximetry Oxygen Delivery Intake/Output Intake/Output: Intake & Output 11/11/24 11/12/24 11/13/24 11/14/24 23:59 23:59 23:59 23:59 Intake Total 174 540 400 Output Total 4400 4500 Balance -4043 -7400 400 Meds/Results Medications: Active Medications Generic Name Dose Route Start Last Admin Trade Name Freq PRN Reason Stop Dose Admin Acetaminophen 650 mg 11/11/24 16:07 Acetaminophen 325 Mg Tablet PO Q4H PRN Mild Pain (1-3) or Fever Amlodipine Besylate 10 mg 11/12/24 09:00 11/13/24 12:28 Amlodipine Besylate 10 Mg Tablet PO 10 mg DAILY CHAPARRITA Administration Calcium Acetate 667 mg 11/11/24 22:00 11/14/24 08:45 Calcium Acetate 667 Mg Tablet PO Not Given QID CHAPARRITA Clopidogrel Bisulfate 75 mg 11/12/24 09:00 11/13/24 12:28 Clopidogrel Bisulfate 75 Mg Tablet PO 75 mg DAILY CHAPARRITA Administration Cyclobenzaprine HCl 10 mg 11/11/24 21:56 Cyclobenzaprine Hcl 10 Mg Tablet PO Q8H PRN restless leg(s) Furosemide 80 mg 11/11/24 22:00 11/13/24 21:10 Furosemide 80 Mg Tablet PO 80 mg Q12H CHAPARRITA Administration Hydralazine HCl 50 mg 11/11/24 22:00 11/14/24 08:45 Hydralazine Hcl 50 Mg Tablet PO Not Given TID CHAPARRITA Albumin Human 50 mls @ 999 mls/hr 11/12/24 05:51 Albutein IVPB 12/12/24 05:50 Q10M PRN HYPOTENSION Lidocaine/Prilocaine 1 each 11/12/24 12:23 11/14/24 07:45 Lidocaine/Prilocaine Cream 2.5-2.5% Tube TOPICAL 11/18/24 23:59 1 each ONCE PRN Administration Pain Metoprolol Succinate 12.5 mg 11/12/24 09:00 11/13/24 12:28 Metoprolol Succinate Ext Rel 12.5 Mg Tabcr PO 12.5 mg DAILY CHAPARRITA Administration Ropinirole HCl 0.25 mg 11/12/24 21:00 11/13/24 20:43 Ropinirole Hcl 0.25 Mg Tablet PO 0.25 mg HS CHAPARRITA Administration Rosuvastatin Calcium 10 mg 11/12/24 21:00 11/13/24 20:42 Rosuvastatin 10 Mg Tablet PO 10 mg HS CHAPARRITA Administration Radiology Results: ITS Impressions Abdomen X-Ray 11/11/24 22:03 IMPRESSION: Nonspecific, nonobstructive bowel gas pattern. Chest X-Ray 11/12/24 06:41 Impression: Clear lungs. Labs Labs: Laboratory Results - last 24 hr 11/14/24 04:48 WBC 3.5 L RBC 2.72 L Hgb 8.9 L Hct 28.1 L MCV 103.3 H MCH 32.7 MCHC 31.7 L RDW 14.1 Plt Count 111 L MPV 9.9 Immature Gran % (Auto) 0.9 H Neut % (Auto) 63.7 Lymph % (Auto) 14.4 L [place] % (Auto) 13.8 H Eos % (Auto) 6.3 H Baso % (Auto) 0.9 Lymph # (Auto) 0.50 L [place] # (Auto) 0.5 Eos # (Auto) 0.2 Baso # (Auto) 0.0 Abs Immat Gran (auto) 0.03 Absolute Neuts (auto) 2.2 Absolute Nucleated RBC 0.000 Nucleated RBC % 0.0 Sodium 133 L Potassium 4.0 Chloride 95 L Carbon Dioxide 26 Anion Gap 12 BUN 31 H D Creatinine 7.65 H Estim Creat Clear Calc 15 Estimated GFR 8 L Glucose 113 H Calcium 9.5 Total Bilirubin 0.4 AST 17 ALT 16 Alkaline Phosphatase 95 Total Protein 7.0 Albumin 4.3
[2024-11-14] MEDS: EPOETIN ALFA-EPBX 10,000 UNITS/ML VIAL 10000 UNITS IV PUSH (10:58)
--- NOTE | 2024-11-14 12:28 | P.DS_ITS ---
DS: Admitting Diagnosis Discharge Date 11/14/2024 Admitting Diagnosis Diarrhea Missed dialysis DS: Discharge Diagnosis Discharge Diagnosis (1) Diarrhea: Code(s): R19.7 - Diarrhea, unspecified Status: Acute (2) End-stage renal disease on hemodialysis: Code(s): N18.6 - End stage renal disease; Z99.2 - Dependence on renal dialysis Status: Acute (3) Volume overload: Code(s): E87.70 - Fluid overload, unspecified Status: Acute (4) Electrolyte abnormality: Code(s): E87.8 - Other disorders of electrolyte and fluid balance, not elsewhere classified Status: Acute (5) Anemia in chronic kidney disease: Code(s): N18.9 - Chronic kidney disease, unspecified; D63.1 - Anemia in chronic kidney disease Status: Acute (6) Hypertension: Code(s): I10 - Essential (primary) hypertension Status: Acute (7) Coronary artery disease: Code(s): I25.10 - Atherosclerotic heart disease of [place] coronary artery without angina pectoris Status: Chronic DS: Summary Hospital Course Reason for hospitalization: Diarrhea and in need of dialysis Hospital Course: This is a pleasant 44-year-old male with end-stage renal disease reportedly secondary to significant NSAID on hemodialysis for the last 6 years, coronary artery disease with history of stents, hypertension, hyperlipidemia, and anemia who presented to the emergency department via private vehicle with complaints of diarrhea and in need of dialysis. He typically has problems with constipation, were since he had an increase in his phosphate binder dosing, and he has been taking senna every night before bed. Late Saturday night or early Saturday morning he started to have diarrhea and he reports having too numerous to count episodes of watery brown and dark green-colored stools. He has been taking Pepto-Bismol with perhaps some improvement and now the stool is more dark. He was unable to get to dialysis on Saturday as he was in the bathroom most of the day and he has noticed an increase in swelling since that time. He denies sick contacts, recent travel, and recent antibiotic use. He also denies fever, chills, sweats, abdominal pain, bloating, belching, and hematochezia. No chest pain or shortness of breath. In the ED: Blood pressures have been running in the 170s to 180s systolic. The remainder of his vital signs are stable. Labs were significant for WBC count of 6.7, hemoglobin 9.1, MCV 102.6, platelet 110, sodium 136, potassium 5.1, chloride 94, carbon dioxide 18, anion gap 24, BUN 71, creatinine greater than 14. He is being admitted in this setting for further workup and dialysis tomorrow. Patient was restarted on dialysis on Sunday 11/12 and received another session on 11/13 with an additional session of dry ultrafiltration on 11/14. Over this time, the patient denied any episodes of diarrhea and continually denies any chest pain, shortness a breath, nausea/vomiting, abdominal pain, or worsening leg swelling. Upon exam, the patient continued to have improving crackles/rales at the base of both lung rios, but this improved throughout his stay. His creatinine continued to improve, down from 14.76 upon admission to 7.6 by discharge. Slight hyponatremia with a sodium of 33 upon discharge, but this could be attributed to repeated dialysis and diuresis. No other major electrolyte abnormalities. Patient remained afebrile with no leukocytosis. Hemoglobin and hematocrit remained stable throughout visit. Chest x-ray showed clear lungs, abdominal x-ray showed nonspecific nonobstructive bowel gas pattern. Pulmonary blood culture results were negative. Physical exam remained benign throughout visit, with patient stating that his legs felt much light and less swollen than they have been for the past week. Follows with Dr. Farnsworth with nephrology and goes to [facility] in [place] for dialysis. The area can otherwise be explained by recent increase and phosphate binders. Patient is standing history of constipation but has had no episodes since admission. Patient is otherwise stable requires no further workup at this time. Patient is stable for discharge. Patient is amenable to discharge at this time. Status at Discharge Functional status at discharge: independent ambulation Overall status at discharge: patient is back to baseline Time Spent with Patient Time attestation: Total time spent providing and/or coordinating discharge services: 45 Exam Narrative: General: Chronically ill-appearing male sitting up in bed in no acute distress. Weight: 103 kg. BMI: 30.8. HEENT: PERRL, EOMI. Sclera anicteric. Tacky mucous membranes. Neck: Supple. No JVD. Respiratory: Respirations are nonlabored. Lung sounds normal. Cardiovascular: Regular rate and rhythm with S1-S2. Murmur heard at the left sternal border. Gastrointestinal: Abdomen is soft, who bring, and nondistended with positive bowel sounds. Skin: Warm and dry. Extremities: No cyanosis or clubbing. 1+ pitting edema in lower extremities. Left upper extremity fistula with palpable thrill and bruit. Neurological: Alert. Cranial nerves 2-12 are grossly intact. Delete No gross focal deficits to casual conversation. Psychiatric: Pleasant and cooperative with appropriate mood and affect. DS: Data Data Completed and Pending Labs on day of discharge: Labs from last 24 hours 11/14/24 04:48 WBC 3.5 L RBC 2.72 L Hgb 8.9 L Hct 28.1 L MCV 103.3 H MCH 32.7 MCHC 31.7 L RDW 14.1 Plt Count 111 L MPV 9.9 Immature Gran % (Auto) 0.9 H Neut % (Auto) 63.7 Lymph % (Auto) 14.4 L Schuyler % (Auto) 13.8 H Eos % (Auto) 6.3 H Baso % (Auto) 0.9 Lymph # (Auto) 0.50 L Schuyler # (Auto) 0.5 Eos # (Auto) 0.2 Baso # (Auto) 0.0 Abs Immat Gran (auto) 0.03 Absolute Neuts (auto) 2.2 Absolute Nucleated RBC 0.000 Nucleated RBC % 0.0 Sodium 133 L Potassium 4.0 Chloride 95 L Carbon Dioxide 26 Anion Gap 12 BUN 31 H D Creatinine 7.65 H Estim Creat Clear Calc 15 Estimated GFR 8 L Glucose 113 H Calcium 9.5 Total Bilirubin 0.4 AST 17 ALT 16 Alkaline Phosphatase 95 Total Protein 7.0 Albumin 4.3 Preliminary micro results at discharge 11/11/24 20:39 Blood Culture - Preliminary Blood 11/11/24 20:39 Blood Culture - Preliminary Blood Discharge Plan Discharge Attending physician on discharge: Osmany Richardson Consulting providers: Dalton Sweet Discharging Clinician: Osmany Richardson Anticipated Discharge Date/Time: 11/14/24 12:26 Patient Disposition: Home Activity: as tolerated Diet: as tolerated Discharge Instructions: Discharge disposition: Stable Take medications as prescribed Monitor blood pressures Take caution while standing, rising, or moving Change positions slowly taking a break between each position change If you standing feel dizzy sit back down and take a break Encouraged to continue with yearly vaccinations Return to the emergency department if he developed sudden shortness of breath, chest pain, nausea, vomiting, upset stomach or intractable diarrhea Return to the emergency department if you develop fever greater than 101.5 Follow-up with the primary care physician within 1-2 weeks Thank you for [facility] for your healthcare needs Patient Instructions: Antibiotic Form Patient Language: Kenyan Stand Alone Forms: General Discharge Information Follow-up/Referrals: Abdirashid,Dallas Sylvester MD [Primary Care Provider] - Discharge Medications: Continued amlodipine 10 mg tablet 10 mg PO DAILY clopidogrel 75 mg tablet 75 mg PO DAILY calcium acetate(phosphat bind) 667 mg capsule 667 mg PO QID cyclobenzaprine 10 mg tablet 10 mg PO Q8H PRN (Reason: restless leg(s)) furosemide 80 mg tablet 80 mg PO Q12H hydralazine 50 mg tablet 50 mg PO TID metoprolol succinate 25 mg tablet extended release 24 hr 12.5 mg PO DAILY peg-electrolyte soln 420 gram recon soln 240 ml PO DAILY PRN (Reason: constipation) ropinirole 0.25 mg tablet 0.25 mg PO HS Rx Instructions: 1-2 tabs rosuvastatin 10 mg tablet 10 mg PO HS Date of admission: 11/12/24 14:13 Primary Care Provider: TerrellDallas Admitting Provider: Kath Craig Attending physician on admission: Osmany Richardson Condition: Guarded Prognosis Quality VTE Prophylaxis VTE prophylaxis: pharmacologic ordered
--- NOTE | 2024-11-14 12:30 | PC.NURSE ---
Returned to room from Dialysis per hospital bed.
[2024-11-14] MEDS: hydrALAZINE HCL 50 MG TABLET PO (12:48)
[2024-11-14] MEDS: METOPROLOL SUCCINATE EXT REL 12.5 MG TABCR PO (12:48)
[2024-11-14] MEDS: CALCIUM ACETATE 667 MG TABLET PO (12:48)
[2024-11-14] MEDS: CLOPIDOGREL BISULFATE 75 MG TABLET PO (12:48)
[2024-11-14] MEDS: FUROSEMIDE 80 MG TABLET PO (12:48)
[2024-11-14] MEDS: amLODIPine BESYLATE 10 MG TABLET PO (12:48)
== END 2024-11-14 13:15 | disposition home or self-care (01) | DRG 640 ==
LOC: ANHED 14:46 → ANH2MED 16:45 → ANH3MEDSUR 17:26
PROVIDERS: Internal Medicine Nephrology; Physician Assistant; Admitting Provider Hospitalist; Emergency Provider Emergency Medicine; PCP Internal Medicine; Visit Provider Physician Assistant
DX: E87.70 Fluid overload, unspecified (principal); N18.6 End stage renal disease; I25.10 Atherosclerotic heart disease of native coronary artery without angina pectoris; I10 Essential (primary) hypertension; D63.1 Anemia in chronic kidney disease; E78.5 Hyperlipidemia, unspecified; R19.7 Diarrhea, unspecified; K59.03 Drug induced constipation; Z99.2 Dependence on renal dialysis; Z79.1 Long term (current) use of non-steroidal anti-inflammatories (NSAID); Z95.5 Presence of coronary angioplasty implant and graft; Z87.891 Personal history of nicotine dependence; Z79.02 Long term (current) use of antithrombotics/antiplatelets
CPT/HCPCS: 36415; 71045; 74018; 80048; 80053; 83690; 83735; 84100; 84443; 85025; 85027; 86706; 87040; 87340; 87641; 96361; 96374; 99285; A9270; G0257; G0378; J7030; Q5105

== ENCOUNTER 2025-01-27 21:42 | Emergency (ER) | payer MEDICARE, MEDICAID, SELFPAY ==
--- NOTE | ~2025-01-27 | CT_ITS ---
Non-contrast Head CT History: Confusion Technique: Axial non-contrast imaging of the brain was performed. Dose reduction technique was used on this scan by utilizing automated exposure control and iterative reconstruction technique. The dose -length product (DLP) was 605.33 mGy-cm. Findings: There is a small acute subdural hemorrhage along the right parietal convexity, measuring 5 mm in maximal thickness (axial images 29-42). Possible trace extension along the right falx tentorium . No parenchymal abnormality otherwise. The ventricles and subarachnoid spaces are normal in size. T he calvarium appears normal. The visualized paranasal sinuses and mastoid air cells are clear. Impression: Small acute right parietal convexity subdural hemorrhage, as detailed above. Reviewed, dictated and finalized at location M. Impression: Small acute right parietal convexity subdural hemorrhage, as detailed above.
--- NOTE | ~2025-01-27 | XR_ITS ---
XR chest 2V Ordering provider: Lorelei Ricardo MD History: 44 years Male with . weakness . Comparison: November 12, 2024 FINDINGS: MEDIASTINUM: The cardiac silhouette is slightly enlarged. LUNGS: No infiltrates, effusions or pneumothorax. OTHER: No free air under the diaphragm. IMPRESSION: No acute cardiopulmonary pathology. Reviewed, dictated and finalized at location A.
--- OUTSIDE RECORDS SUMMARY | 2025-01-27 21:45 | XMS_ITS | Clinical Summary ---
Author Organization [facility] [employer] Address [address] [place] [address] Care Team Providers Care Dairy And Food Laboratory Assistant Name Role Phone Dallas Tejada MD Primary Care Provider [phone] Naomi Kaye MD Unavailable [phone] Source Comments [facility] [employer],non-owned Affiliates and Associated Physician Practices is amultiple site organization consisting of ambulatory clinics and hospital sitesin [place], [place], [place] and [place]. This disclosure is being madepursuant to the Care Everywhere program and may not contain all information available regarding this patient. Last updated 18.[facility] [employer] Allergies No known active allergies Medications * [...] 24 hours. Active vitamin D, ergocalciferol, (DRISDOL) 58944 units capsule Receives at [facility] 3 04/01/20 [...] dialysis, without long-term current use of insulin ([facility]),Grade II diastolic dysfunction,Nonobst ructive atherosclerosis of coronary artery,ESRD (end stage renal disease) ([facility]),Encounter regarding vascular access for dialysis for end-stage renal disease ([facility]),History of tobacco use,Pre-transplant evaluation for kidney transplant Use 1 (one) strip as directed 100 strip 3 05/12/20 24 Active lancetsIndications: 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, without long-term current use of insulin ([facility]),Grade II diastolic dysfunction,Nonobst ructive atherosclerosis of coronary artery,ESRD (end stage renal disease) ([facility]),Encounter regarding vascular access for dialysis for end-stage renal disease ([facility]),History of tobacco use,Pre-transplant evaluation for kidney transplant [...] placement 2023 Coronary artery disease invo [place]ving [place] coronary artery of [place] heart with angina pectoris 05/25/2024 Nonobstructive atherosclerosis [...] included. Rj Cole 1980 Listing date: Referring Pet Care Associate: Sharon Farnsworth Dialysis Info: Type: HD M,W,F Time: 03/10/2019 Blood Type: O POS Body mass index is 31.65 kg/m . ALERTS: pt will need FLOmax post txp ALERTS: pt has been using midodrine prn on dialysis this December - January 2024 (BPs requested) Motor And Generator Brush Cutter: pt seen by Dr. Donato on 05/12/2024 ESRD 2/2 DM2 and HTN Past Medical History: Diagnosis Date Anuria q3 days, very little/could fill up bottom of cup CHF (congestive heart failure) ([facility]) Coronary artery disease seen on [facility] completed here on 05/25/2020. Diabetes mellitus (HCC) dx at age [age] no band director, was on metformin x 1 week, diet controlled diarrhea Esophageal reflux ESRD on hemodialysis ([facility]) BEN ([facility]) [place] ON M, W, F 08/11/19 History of blood transfusion 2018 when found out kidney failure Hypertension dx at age 38 Kidney stones twice in his early 20s, passed on own Kidney trouble Neuropathy Oliguria PVD (peripheral vascular disease) ([facility]) c/o claudication sometimes but thinks it's bc [...] teeth removed Renal Biopsy 2018 [facility] [place] Retinal Detachment Repair Bilateral Social History Socioeconomic [...] phases of the transplant evaluation Present to [facility] for approval/denial/ versus more testing to [...] He is currently on MWF hemodialysis in [facility] 2) Cardiovascular Disease - Due to the [...] male with the following diagnoses presenting to [facility] for follow up/evaluation of Nonobstructive atherosclerosis of coronary artery [I25.10] Impression: Nonobstructive atherosclerosis of coronary artery (primary encounter diagnosis) Pre-transplant evaluation for kidney transplant Left ventricular hypertrophy Grade II diastolic dysfunction Moderate tricuspid regurgitation ESRD on hemodialysis ([facility]) Controlled type 2 diabetes mellitus with other specified complication, without long-term current use of insulin ([facility]) History of tobacco use NYHA Class I [...] Takes midodrine on HD days if needed Pet Care Associate : Sharon Farnsworth [facility] 05/2020 with nonobstructive CAD, mild disease in mLAD Never started on statin therapy, LDL 70 12/2023 ASCVD: CT Calcium (as part of stress test) 02/06/2024 with calcium score in the left main artery 302.4, LAD of 574.0, LCX 53.4and [id number]. HTN + DMT2 history with end organ [...] corrective surgery, ESRD on HD, nonobstructive CAD ([facility] 05/2020), HLD, BPH, RLS, history of tobacco use. He was last seen in the [facility] by Dr Garg on [...] artery 302.4, LAD of 574.0, LCX 53.4and KNU5964.6. Total calcium score is 2473.4. According to [...] ventricle. > Dictated by Rosy Florian MD (Child Care Aide) 02/06/2024 11:30 AM ICarter MD have personally [...] evidence of ischemia at achieved workload. Catherization [facility] 05/25/2020 HEMODYNAMIC FINDINGS: LV:148/28 mm Hg AO: [...] ascites and mesenteric/ retroperitoneal stranding/edema. Trenton Shaw, PROPERTY INSURANCE INSPECTOR-MARGARINE MAKER Pertinent Previous Committee Presentations: [facility] notes: 05/10/2022 Committee Discussion Details: Pt's case presented at [facility] today to discuss his candidacy for [...] 44) LV RWT 0.402 LV mass 2D 357.70234019219514 g (Range: 96 - 200) LV mass [...] artery 302.4, LAD of 574.0, LCX 53.4and [id number]. Total calcium score is 2473.4. According to [...] artery 302.4, LAD of 574.0, LCX 53.4and RRD4480.6. Total calcium score is 2473.4. According to [...] race matched control. 4. Enlarged left ventricle. [facility]: 04/27/2024 Conclusion 50% proximal/mid LAD stenosis, ischemic [...] or text me on my cell phone [phone]. I appreciate the opportunity to participate in the care of your patient and look forward to being of service in the future as well. Sincerely, Jose Cedillo MD, PhD, [facility] 05/25/2020 (completed given length of time DM2) [...] mesenteric/retroperitoneal stranding/edema. ABIs: 01/07/2024 [facility]01/07/2024 INDINGS: A card cutter helper radiograph remarkable, other than calcification of iliac [...] It is the impression of this social sciences instructor that Rj Cole has several positive factors for Kidney from a psychosocial perspective. Patient appears to have appropriate knowledge of illness. Patient has sufficient insurance coverage and stable financial situation for post transplant needs. No concerns regarding substance abuse, legal issues, or mental health needs. Patient has adequate support system and appropriate discharge plan. Plan: telephone worker to provide supportive services as needed. Patient appears to be a reasonable candidate for transplant from a psychosocial perspective. -Post transplant arrangement forms are needed prior to being listed. Psychiatric Consult Recommended: No Transplant Riding Instructor: Katherine Joaquin LMSW Abdominal Transplant Riding Instructor [phone] TACKER [employer]AND Forms: Transplant Caregiver Confirmation Note Caregiver Confirmation Date Primary Name of Primary: [place] Relationship: girlfriend - TACKER ELASTIC BAND form received on 01/21/24 - Confirmed via telephone on 01/27/24 Secondary Name of Secondary: Dorcas Relationship: sister - TACKER ELASTIC BAND form received on 01/21/24 - Confirmed via [...] disease) 02/09/2019 Complication of arteriovenous dialysis fistula Immunizations Immunization Administration Dates Next Due Erenis PRIMARY 18+YR 10/17/2020 FLU VACCINE QUAD IIV4 [...] only drank once a month, quit in 2018 Last cigar use beginning of November 2023 [...] Comments Blood Pressure 140/64 06/11/2024 2:00 PM ASSESSMENT SPECIALIST Pulse 58 06/11/2024 2:00 PM ASSESSMENT SPECIALIST Temperature 36.7 C (98 F) 06/11/2024 10:58 AM ASSESSMENT SPECIALIST Respiratory Rate 10 06/11/2024 2:00 PM ASSESSMENT SPECIALIST Oxygen Saturation 97% 06/11/2024 2:00 PM ASSESSMENT SPECIALIST Inhaled Oxygen Concentration - - Weight 106.6 kg (235 lb) 06/11/2024 5:50 AM ASSESSMENT SPECIALIST Height 182.9 cm (6') 06/11/2024 5:50 AM ASSESSMENT SPECIALIST Body Mass Index 31.87 06/11/2024 5:50 AM ASSESSMENT SPECIALIST Plan of Treatment Upcoming Encounters Date Type Department Care Team (Late st Contact Info) Description 05/25/2025 2:15 PM ASSESSMENT SPECIALIST Appointment [facility] Services [address] [place] [address], [place] [id number] Health Maintenance Due Date Last Done Comments COLOGUARD (AGES 45-75) - COLON CA SCREENING 1978 CT COLONOGRAPHY - COLON CA SCREENING 1978 FIT - COLON CA SCREENING 1980 FLEX SIG - COLON CA SCREENING 1978 MEDICARE AWV 12 MONTHS 1978 DTAP/TDAP/TD VACCINES (1 - Tdap) 1997 PNEUMOCOCCAL VACCINE (2 of 2 - PPSV23, PCV20, or PCV21) 06/19/2019 04/24/2019 DIABETES RETINOPATHY SCREENING 02/27/2024 DIABETES-FOOT EXAM WITH MONOFILAMENT 02/27/2024 COVID-19 VACCINE (2 - 2023- season) 2024 10/17/2020 DEPRESSION SCREENING 07/22/2024 DIABETES-HGB A1C 11/10/2024 05/12/2024, , 05/12/2020, Additional history exists INFLUENZA VACCINE (#1) 2025 , 04/25/2020, 03/22/2020, Additional history exists ZOSTER VACCINE [...] this topic Medical Devices Implanted Type Area Psychologist Chief Device Identifier Shelf Expiration Date Model / Serial / Lot Stent Cor White Owl 3.50 X 18rx Drg Elut - [id number] Implanted:Qty: 1 on 06/11/2024 by Jose Cedillo MD at [facility] Left: Coronary [employer] [id number] 06/11/2026 [id number] / [id number] / [id number] Procedures Procedure Name Priority Date/Time Associated Diagnosis [...] PM CDT) Hemoglobin A1c POCT 4.7 % [facility] Marc [facility] BLOOD SPECIMEN / Unknown 05/12/2024 1:22 PM CDT Niurka Donato MD LAB - POINT OF CARE ORDERABLES Final Result [address] [place] [address], [facility] [phone] * ENDOSCOPY, COLON, SCREENING (01/28/2024 12:23 PM [...] and oxygen saturations were monitored continuously. The [id number] was introduced through the anus and advanced to the cecum, identified by appendiceal orifice and ileocecal valve. The colonoscopy was performed without difficulty. The patient tolerated the procedure well. The quality of the bowel preparation was evaluated using the BBPS ([place] Bowel Preparation Scale) with scores of: Right [...] non-barillas portions. Procedure Code(s): --- Professional --- 89421, Colonoscopy, flexible; with removal of tumor(s), polyp(s), or other lesion(s) by snare technique Diagnosis Code(s): --- Professional --- Z12.11, Encounter for screening for malignant neoplasm of colon D12.3, Benign neoplasm of transverse colon (hepatic flexure or splenic flexure) D12.2, Benign neoplasm of ascending colon CPT copyright 2021 [employer]. All rights reserved. The codes documented in this report are preliminary and upon medical billing coder review may be revised to meet current compliance requirements. Mauro Gómez MD 01/28/2024 1:37:03 PM Note Initiated On: 01/28/2024 12:23 PM Number of Addenda: [id number] [place] [address] [facility] 01/28/2024 12:2 3 PM CDT Daniel Leggett MD GI PROCEDURE ORDERAB LES Edited Result - Final [facility] * HIV-1 HIV-2 ANTIBODY + HIV P24 AG PANEL (01/07/2024 12:28 PM CDT) HIV Antigen/Antibod y 1 & 2 Non-reacti ve Non-react mary jane 01/07/2024 2:52 PM CDT [facility] Comment:No Laboratory eviden ce of HIV infection. Blood BLOOD SPECIMEN / Unknown Lab Venipuncture / Unknown 01/07/2024 12:28 PM CDT 01/07/2024 1:08 PM CDT Clif Stein MD LAB - CHEMISTRY ORDERAB LES Final Result [id number] [place] [address], [place] [phone] * HEPATITIS C ANTIBODY (01/07/2024 12:28 PM CDT) Hepatitis C Antibody Non-react mary jane Non-reac tive 01/07/2024 2:52 PM CDT [facility] Comment:Hepatitis C Antibody screen indicates no [...] ORDERAB LES Final Result Performing Organization Address City/[facility] Co de Phone Number [address] [address], [facility] [phone] from Last 3 Months or Most Recently [...] 3:49 PM 02/23/2019 4:47 PM Care Teams Dairy And Food Laboratory Assistant Relationship Specialty Start Date End Date Dallas Tejada MD [address] [facility] [address] [place] [address] PCP - General Internal Medicine 02/18/19 Naomi Kaye MD [address] [facility] [address] [place] [address] [facility] 11/19/24
--- OUTSIDE RECORDS SUMMARY | 2025-01-27 21:45 | XMS_ITS | Encounter Summary ---
Author Organization [facility] Address [address] [place] [address] Care Team Providers Care Final Rail Cutter Name Role Phone Dallas Tejada MD Primary Care Provider [phone] Naomi Kaye MD Unavailable Dallas Tejada MD Unavailable [phone] Naomi Kaye MD Unavailable [phone] Encounter Details Date Type Department Care Team (Late Contact Info) Description 02/09/2019 [facility] Out[facility] [address] [place] [address] [place] [address] [facility] [address] [place] [id number] Social History Tobacco Use Types Packs/Day Years [...] (Late Contact Info) Description 05/25/2025 2:15 PM MANAGER TRADING Appointment [facility] Health Vascular Services [address], [address] [place] [address] documented as of this encounter Visit Diagnoses Not on filedocumented in this encounter Care Teams Final Rail Cutter Relationship Specialty Start Date End Date Dallas Tejada MD [address] [facility] [address] [place] [address] PCP - General Internal Medicine 02/18/19 Naomi Kaye MD [address] [place] [address] PCP - [facility] 07/22/24 10/19/24 Dallas Tejada MD [address] [facility] [address] [place] [address] PCP - [facility] 10/20/24 11/18/24 Naomi Kaye MD [address] [place] [address] PCP - [facility] 11/19/24 documented as of this encounter
--- OUTSIDE RECORDS SUMMARY | 2025-01-27 21:46 | XMS_ITS ---
Author Organization [facility] ([facility]) Address [address] [place] [id number] Care Team Providers Care Brand Coordinator Name Role Phone Unavailable Unavailable Unavailable Allergies, Adverse Reactions, Alerts Allergy Name Allergy Type Status Severity Reaction(s) Onset Date Inactive Date Treating Clinician Comments No Known Allergies Allergy Active 2022-04 18:51:4 0 Medications Ordered Medication Name Filled Medication Name Start Date Stop Date Current Medication? Ordering Clinician Indication Dosage Frequency Signature (SIG) Comments Components calcitriol 01-01 20:29: 05 Yes [id number] Number of Repeats Allowed: Frequency: Three times a week Mircera 08 05:00: 00 Yes [id number] Number of Repeats Allowed: Frequency: RAVINDER dosing, every two weeks Venofer 10-03 19:32: 40 Yes [id number] Number of Repeats Allowed: Frequency: One time a weekDosesO rdered: Maintenanc e Dose 50 Milligram Route: Intravenou s heparin sodium, porcine 15 14:59: 33 Yes [id number] Number of Repeats Allowed: Frequency: Every Dialysis TreatmentD osesOrdere d: Loading Dose 2000 Units 1:1000 Units/mLRo [place]: Intravenou s heparin sodium, porcine 15 14:59: 19 Yes [id number] Number of Repeats Allowed: Frequency: Every Dialysis TreatmentD osesOrdere d: Hourly Dose 500 Units/Hr 1:1000 Units/mLRo [place]: Intravenou s loperamide hydrochlori de 09-21 13:46: 24 Yes [id number] Number of Repeats Allowed: Frequency: Every 4 hours as needed Normal Saline Solution 0.9% NaCl 09-21 13:46: 05 Yes [id number] Number of Repeats Allowed: Frequency: As needed Oxygen 09-21 13:45: 52 Yes [id number] Number of Repeats Allowed: Frequency: As needed ondansetron hydrochlori de 09-21 13:45: 42 Yes [id number] Number of Repeats Allowed: Frequency: Every 4 hours as needed Antacid Extra Strength 09-21 13:45: 22 Yes [id number] Number of Repeats Allowed: Frequency: Every 4 hours as needed acetaminoph en 09-21 13:45: 06 Yes [id number] Number of Repeats Allowed: Frequency: Every 4 hours as needed Problems This patient has no known problems. Procedures Procedure Date / Time Performed Performing Clinician Courtney ce Details AV Fistula 2019-03-10 05:00:00 Access Surgeon HUMZA WHITFIELD MD ([id number]),[place], [place] Access Site Forearm (Left) Access Use Start Date 2019-06-10 06:00:0 0 DIALYSIS TREATMENT INFORMATION Conventional Hemodialysis Date Type Treatment Start Date Treatment End Date Pre-Treatment Vitals Post-Treatment Vitals Weight Gain BFR DFR Actual UF Dialysis Access January 27, 2025 In-Ce nter Hemod ialys is Treat ment 2025-01-27 T10:22:31. 000Z 2025-01-27 T14:24:31. 000Z BP Sitting (Pre-Dialysis) 131/101 mmHg BP Sitting (Post-D ialysis ) 162/ 77 mmHg BP Standing (Pre-Dialysis) 172/85 mmHg BP Standing (P ost-Dialysis) 156/75 mmHg Sitting Heart Rate Pre-Dialysis 76 BPM Sitting Heart Rate Post-Dialysis 67 BPM Standing Heart Rate Pre-Dialysis 76 BPM Standing Heart Rate Post-Dialysis 70 BPM Temperature Pre-Dialysis 97.8 degF Temperature Post -Dialysis 97.6 degF January 25, 2025 In-Center Hemodialysis Treatment [id number]:31:00.000Z 9297-20-91R62:34:40.000Z BP Sitting (Pre-Dialysis) 181/93 mmHg BP Sitting (Post-Dialysis) 164/79 mmHg Concurrent Access: falseAV Fistula Forearm (Left) Arterial BP Standing (Pre-Dialysis) 182/85 mmHg BP Standing (P ost-Dialysis) 168/78 mmHg Sitting Heart Rate Pre-Dialysis 86 BPM Sitting Heart Rate Post-Dialysis 72 BPM Standing Heart Rate Pre-Dialysis 85 BPM Standing Heart Rate Post-Dialysis 69 BPM Temperature Pre-Dialysis 97.7 degF Temperature Post -Dialysis 97.8 degF January 22, 2025 In-Center Hemodialysis Treatment [id number]:33:51.000Z 0170-59-46H39:29:51.000Z BP Sitting (Pre-Dialysis) 175/85 mmHg BP Sitting (Post-Dialysis) 142/41 mmHg Concurrent Access: falseAV Fistula Forearm (Left) Arterial BP Standing (Pre-Dialysis) 170/80 mmHg BP Standing (P ost-Dialysis) 137/60 mmHg Sitting Heart Rate Pre-Dialysis 76 BPM Sitting Heart Rate Post-Dialysis 69 BPM Standing Heart Rate Pre-Dialysis 80 BPM Standing Heart Rate Post-Dialysis 75 BPM Temperature Pre-Dialysis 97.6 degF Temperature Post -Dialysis 97.4 degF January 20, 2025 In-Center Hemodialysis Treatment [id number]:33:18.000Z 7442-43-10Z75:30:19.000Z BP Sitting (Pre-Dialysis) 180/84 mmHg BP Sitting (Post-Dialysis) 149/69 mmHg Concurrent Access: falseAV Fistula Forearm (Left) Arterial BP Standing (Pre-Dialysis) 178/92 mmHg BP Standing (P ost-Dialysis) 148/64 mmHg Sitting Heart Rate Pre-Dialysis 74 BPM Sitting Heart Rate Post-Dialysis 67 BPM Standing Heart Rate Pre-Dialysis 76 BPM Standing Heart Rate Post-Dialysis 73 BPM Temperature Pre-Dialysis 97.8 degF Temperature Post -Dialysis 97 degF January 18, 2025 In-Center Hemodialysis Treatment [id number]:42:59.000Z 2089-10-92Q01:45:59.000Z BP Sitting (Pre-Dialysis) 166/84 mmHg BP Sitting (Post-Dialysis) 145/82 mmHg Concurrent Access: falseAV Fistula Forearm (Left) Arterial BP Standing (Pre-Dialysis) 162/81 mmHg BP Standing (P ost-Dialysis) 164/80 mmHg Sitting Heart Rate Pre-Dialysis 75 BPM Sitting Heart Rate Post-Dialysis 76 BPM Standing Heart Rate Pre-Dialysis 76 BPM Standing Heart Rate Post-Dialysis 70 BPM Temperature Pre-Dialysis 97.6 degF Temperature Post -Dialysis 97.9 degF January 15, 2025 In-Center Hemodialysis Treatment 1819-87-81N21:39:00.000Z 7135-28-45Z55:39:10.000Z BP Sitting (Pre-Dialysis) 178/85 mmHg BP Sitting (Post-Dialysis) 134/75 mmHg Concurrent Access: falseAV Fistula Forearm (Left) Arterial BP Standing (Pre-Dialysis) 177/77 mmHg BP Standing (P ost-Dialysis) 153/74 mmHg Sitting Heart Rate Pre-Dialysis 77 BPM Sitting Heart Rate Post-Dialysis 67 BPM Standing Heart Rate Pre-Dialysis 78 BPM Standing Heart Rate Post-Dialysis 67 BPM Temperature Pre-Dialysis 97.7 degF Temperature Post -Dialysis 97.8 degF January 13, 2025 In-Center Hemodialysis Treatment 5315-98-74C62:34:37.000Z 2083-25-18V58:32:37.000Z BP Sitting (Pre-Dialysis) 171/82 mmHg BP Sitting (Post-Dialysis) 157/71 mmHg Concurrent Access: falseAV Fistula Forearm (Left) Arterial BP Standing (Pre-Dialysis) 158/75 mmHg BP Standing (P ost-Dialysis) 155/73 mmHg Sitting Heart Rate Pre-Dialysis 78 BPM Sitting Heart Rate Post-Dialysis 71 BPM Standing Heart Rate Pre-Dialysis 80 BPM Standing Heart Rate Post-Dialysis 70 BPM Temperature Pre-Dialysis 98.3 degF Temperature Post -Dialysis 98.1 degF January 11, 2025 In-Center Hemodialysis Treatment 9092-55-25L58:30:46.000Z 8774-55-54G19:31:46.000Z BP Sitting (Pre-Dialysis) 159/82 mmHg BP Sitting (Post-Dialysis) 162/71 mmHg Concurrent Access: falseAV Fistula Forearm (Left) Arterial BP Standing (Pre-Dialysis) 161/81 mmHg Sitti ng Heart Rate Post-Dialysis 69 BPM Sitting Heart Rate Pre-Dialysis 78 BPM Temperatu re Post-Dialysis 97.9 degF Standing Heart Rate Pre-Dialysis 76 BPM Temperature Pre-Dialysis 98.3 degF January 08, 2025 In-Center Hemodialysis Treatment 4038-55-94P64:42:57.000Z 2007-51-17C26:43:57.000Z BP Sitting (Pre-Dialysis) 165/84 mmHg BP Sitting (Post-Dialysis) 156/70 mmHg Concurrent Access: falseAV Fistula Forearm (Left) Arterial BP Standing (Pre-Dialysis) 159/79 mmHg BP Standing (P ost-Dialysis) 157/76 mmHg Sitting Heart Rate Pre-Dialysis 76 BPM Sitting Heart Rate Post-Dialysis 66 BPM Standing Heart Rate Pre-Dialysis 78 BPM Standing Heart Rate Post-Dialysis 65 BPM Temperature Pre-Dialysis 97.9 degF Temperature Post -Dialysis 97.8 degF January 06, 2025 In-Center Hemodialysis Treatment [id number]:09:24.000Z 7469-82-93L77:00:25.000Z BP Sitting (Pre-Dialysis) 157/81 mmHg BP Sitting (Post-Dialysis) 161/77 mmHg Concurrent Access: falseAV Fistula Forearm (Left) Arterial BP Standing (Pre-Dialysis) 163/84 mmHg Sitti ng Heart Rate Post-Dialysis 72 BPM Sitting Heart Rate Pre-Dialysis 63 BPM Temperatu re Post-Dialysis 97.7 degF Standing Heart Rate Pre-Dialysis 76 BPM Temperature Pre-Dialysis 97.8 degF January 04, 2025 In-Center Hemodialysis Treatment 5197-73-77G17:27:00.000Z 6195-74-49X37:30:53.000Z BP Sitting (Pre-Dialysis) 170/88 mmHg BP Sitting (Post-Dialysis) 158/79 mmHg Concurrent Access: falseAV Fistula Forearm (Left) Arterial BP Standing (Pre-Dialysis) 166/80 mmHg BP Standing (P ost-Dialysis) 159/75 mmHg Sitting Heart Rate Pre-Dialysis 72 BPM Sitting Heart Rate Post-Dialysis 71 BPM Standing Heart Rate Pre-Dialysis 75 BPM Standing Heart Rate Post-Dialysis 72 BPM Temperature Pre-Dialysis 97.9 degF Temperature Post -Dialysis 97.9 degF January 01, 2025 In-Center Hemodialysis Treatment 3605-47-17I77:35:25.000Z 1632-37-89O81:35:25.000Z BP Sitting (Pre-Dialysis) 168/82 mmHg BP Sitting (Post-Dialysis) 158/71 mmHg Concurrent Access: falseAV Fistula Forearm (Left) Arterial BP Standing (Pre-Dialysis) 134/76 mmHg Sitti ng Heart Rate Post-Dialysis 71 BPM Sitting Heart Rate Pre-Dialysis 74 BPM Temperatu re Post-Dialysis 97.7 degF Standing Heart Rate Pre-Dialysis 72 BPM Temperature Pre-Dialysis 97.7 degF December 30, 2024 In-Center Hemodialysis Treatment 7846-00-20F05:46:52.000Z 3303-30-05F97:43:12.000Z BP Sitting (Pre-Dialysis) 177/84 mmHg BP Sitting (Post-Dialysis) 157/75 mmHg Concurrent Access: falseAV Fistula Forearm (Left) Arterial BP Standing (Pre-Dialysis) 188/90 mmHg BP Standing (P ost-Dialysis) 157/69 mmHg Sitting Heart Rate Pre-Dialysis 76 BPM Sitting Heart Rate Post-Dialysis 72 BPM Standing Heart Rate Pre-Dialysis 77 BPM Standing Heart Rate Post-Dialysis 74 BPM Temperature Pre-Dialysis 97.5 degF Temperature Post -Dialysis 97.8 degF December 28, 2024 In-Center Hemodialysis Treatment 1898-90-58D41:26:19.000Z 1699-02-24U01:27:20.000Z BP Sitting (Pre-Dialysis) 175/84 mmHg BP Sitting (Post-Dialysis) 156/72 mmHg Concurrent Access: falseAV Fistula Forearm (Left) Arterial BP Standing (Pre-Dialysis) 176/89 mmHg BP Standing (P ost-Dialysis) 145/77 mmHg Sitting Heart Rate Pre-Dialysis 75 BPM Sitting Heart Rate Post-Dialysis 74 BPM Standing Heart Rate Pre-Dialysis 74 BPM Standing Heart Rate Post-Dialysis 90 BPM Temperature Pre-Dialysis 98.2 degF Temperature Post -Dialysis 98 degF December 25, 2024 In-Center Hemodialysis Treatment 4575-07-16O89:34:00.000Z 4985-56-42J40:32:31.000Z BP Sitting (Pre-Dialysis) 178/87 mmHg BP Sitting (Post-Dialysis) 145/79 mmHg Concurrent Access: falseAV Fistula Forearm (Left) Arterial BP Standing (Pre-Dialysis) 170/80 mmHg BP Standing (P ost-Dialysis) 151/69 mmHg Sitting Heart Rate Pre-Dialysis 76 BPM Sitting Heart Rate Post-Dialysis 71 BPM Standing Heart Rate Pre-Dialysis 76 BPM Standing Heart Rate Post-Dialysis 71 BPM Temperature Pre-Dialysis 97.6 degF Temperature Post -Dialysis 97.8 degF December 23, 2024 In-Center Hemodialysis Treatment 0243-09-61R88:36:00.000Z 3269-44-79C57:37:59.000Z BP Sitting (Pre-Dialysis) 181/86 mmHg BP Sitting (Post-Dialysis) 158/75 mmHg Concurrent Access: falseAV Fistula Forearm (Left) Arterial BP Standing (Pre-Dialysis) 186/91 mmHg BP Standing (P ost-Dialysis) 153/106 mmHg Sitting Heart Rate Pre-Dialysis 75 BPM Sitting Heart Rate Post-Dialysis 72 BPM Standing Heart Rate Pre-Dialysis 75 BPM Standing Heart Rate Post-Dialysis 70 BPM Temperature Pre-Dialysis 98.2 degF Temperature Post -Dialysis 97.9 degF December 21, 2024 In-Center Hemodialysis Treatment [id number]:16:40.000Z 5513-23-81B26:18:40.000Z BP Sitting (Pre-Dialysis) 169/91 mmHg BP Sitting (Post-Dialysis) 163/77 mmHg Concurrent Access: falseAV Fistula Forearm (Left) Arterial BP Standing (Pre-Dialysis) 167/89 mmHg BP Standing (P ost-Dialysis) 162/74 mmHg Sitting Heart Rate Pre-Dialysis 67 BPM Sitting Heart Rate Post-Dialysis 64 BPM Standing Heart Rate Pre-Dialysis 70 BPM Standing Heart Rate Post-Dialysis 65 BPM Temperature Pre-Dialysis 97.6 degF Temperature Post -Dialysis 98 degF December 18, 2024 In-Center Hemodialysis Treatment [id number]:33:46.000Z 5235-58-24M43:31:47.000Z BP Sitting (Pre-Dialysis) 180/91 mmHg BP Sitting (Post-Dialysis) 179/86 mmHg Concurrent Access: falseAV Fistula Forearm (Left) Arterial BP Standing (Pre-Dialysis) 179/90 mmHg BP Standing (P ost-Dialysis) 175/91 mmHg Sitting Heart Rate Pre-Dialysis 76 BPM Sitting Heart Rate Post-Dialysis 72 BPM Standing Heart Rate Pre-Dialysis 75 BPM Standing Heart Rate Post-Dialysis 71 BPM Temperature Pre-Dialysis 97.7 degF Temperature Post -Dialysis 97.9 degF December 16, 2024 In-Center Hemodialysis Treatment [id number]:32:14.000Z 3988-85-98U81:32:14.000Z BP Sitting (Pre-Dialysis) 138/86 mmHg BP Sitting (Post-Dialysis) 155/68 mmHg Concurrent Access: falseAV Fistula Forearm (Left) Arterial BP Standing (Pre-Dialysis) 157/81 mmHg BP Standing (P ost-Dialysis) 168/77 mmHg Sitting Heart Rate Pre-Dialysis 75 BPM Sitting Heart Rate Post-Dialysis 73 BPM Standing Heart Rate Pre-Dialysis 76 BPM Standing Heart Rate Post-Dialysis 69 BPM Temperature Pre-Dialysis 97.8 degF Temperature Post -Dialysis 97.8 degF December 14, 2024 In-Center Hemodialysis Treatment 7808-63-10Z81:32:41.000Z 4689-58-02M01:35:42.000Z BP Sitting (Pre-Dialysis) 177/87 mmHg BP Sitting (Post-Dialysis) 160/79 mmHg Concurrent Access: falseAV Fistula Forearm (Left) Arterial BP Standing (Pre-Dialysis) 165/79 mmHg BP Standing (P ost-Dialysis) 167/70 mmHg Sitting Heart Rate Pre-Dialysis 77 BPM Sitting Heart Rate Post-Dialysis 70 BPM Standing Heart Rate Pre-Dialysis 79 BPM Standing Heart Rate Post-Dialysis 73 BPM Temperature Pre-Dialysis 97.1 degF Temperature Post -Dialysis 98 degF December 11, 2024 In-Center Hemodialysis Treatment 7975-24-19I39:45:00.000Z 2366-01-33S24:32:09.000Z BP Sitting (Pre-Dialysis) 197/96 mmHg BP Sitting (Post-Dialysis) 169/79 mmHg Concurrent Access: falseAV Fistula Forearm (Left) Arterial BP Standing (Pre-Dialysis) 181/84 mmHg Sitting Heart Rate Post-Dialysis 75 BPM Sitting Heart Rate Pre-Dialysis 79 BPM Temperatu re Post-Dialysis 98 degF Standing Heart Rate Pre-Dialysis 80 BPM Temperature Pre-Dialysis 97.7 degF December 09, 2024 In-Center Hemodialysis Treatment 2221-31-74R83:26:36.000Z 9798-89-49E84:31:37.000Z BP Sitting (Pre-Dialysis) 181/90 mmHg BP Sitting (Post-Dialysis) 157/71 mmHg Concurrent Access: falseAV Fistula Forearm (Left) Arterial BP Standing (Pre-Dialysis) 163/82 mmHg BP Standing (P ost-Dialysis) 144/68 mmHg Sitting Heart Rate Pre-Dialysis 77 BPM Sitting Heart Rate Post-Dialysis 76 BPM Standing Heart Rate Pre-Dialysis 81 BPM Standing Heart Rate Post-Dialysis 78 BPM Temperature Pre-Dialysis 97.1 degF Temperature Post -Dialysis 97.8 degF December 07, 2024 In-Center Hemodialysis Treatment [id number]:55:00.000Z 8772-53-59O14:54:04.000Z BP Sitting (Pre-Dialysis) 163/83 mmHg BP Sitting (Post-Dialysis) 148/70 mmHg Concurrent Access: falseAV Fistula Forearm (Left) Arterial BP Standing (Pre-Dialysis) 161/80 mmHg Sitti ng Heart Rate Post-Dialysis 74 BPM Sitting Heart Rate Pre-Dialysis 72 BPM Temperatu re Post-Dialysis 97.7 degF Standing Heart Rate Pre-Dialysis 75 BPM Temperature Pre-Dialysis 97.7 degF December 04, 2024 In-Center Hemodialysis Treatment 3669-60-09D87:32:50.000Z 9939-53-64U64:31:50.000Z BP Sitting (Pre-Dialysis) 173/100 mmHg BP Sitting (Post-Dialysis) 133/70 mmHg Concurrent Access: falseAV Fistula Forearm (Left) Arterial BP Standing (Pre-Dialysis) 146/73 mmHg BP Standing (P ost-Dialysis) 107/56 mmHg Sitting Heart Rate Pre-Dialysis 76 BPM Sitting Heart Rate Post-Dialysis 73 BPM Standing Heart Rate Pre-Dialysis 77 BPM Standing Heart Rate Post-Dialysis 76 BPM Temperature Pre-Dialysis 97.8 degF Temperature Post -Dialysis 97.8 degF December 02, 2024 In-Center Hemodialysis Treatment 3982-99-34V64:33:48.000Z 5115-63-94Y42:31:48.000Z BP Sitting (Pre-Dialysis) 180/88 mmHg BP Sitting (Post-Dialysis) 163/73 mmHg Concurrent Access: falseAV Fistula Forearm (Left) Arterial BP Standing (Pre-Dialysis) 173/87 mmHg Sitti ng Heart Rate Post-Dialysis 74 BPM Sitting Heart Rate Pre-Dialysis 80 BPM Temperatu re Post-Dialysis 97.8 degF Standing Heart Rate Pre-Dialysis 80 BPM Temperature Pre-Dialysis 97.6 degF November 30, 2024 In-Center Hemodialysis Treatment 4004-09-70P77:43:00.000Z 0319-59-17I89:46:16.000Z BP Sitting (Pre-Dialysis) 168/88 mmHg BP Sitting (Post-Dialysis) 153/82 mmHg Concurrent Access: falseAV Fistula Forearm (Left) Arterial BP Standing (Pre-Dialysis) 153/75 mmHg BP Standing (P ost-Dialysis) 137/61 mmHg Sitting Heart Rate Pre-Dialysis 76 BPM Sitting Heart Rate Post-Dialysis 72 BPM Standing Heart Rate Pre-Dialysis 77 BPM Standing Heart Rate Post-Dialysis 74 BPM Temperature Pre-Dialysis 97.2 degF Temperature Post -Dialysis 97.3 degF November 28, 2024 Additional Day Of Dialysis Treatment 2753-83-68W71:30:25.000Z 5762-86-75O96:27:29.000Z BP Sitting (Pre-Dialysis) 168/90 mmHg BP Sitting (Post-Dialysis) 157/74 mmHg Concurrent Access: falseAV Fistula Forearm (Left) Arterial BP Standing (Pre-Dialysis) 168/81 mmHg Sitti ng Heart Rate Post-Dialysis 68 BPM Sitting Heart Rate Pre-Dialysis 77 BPM Temperatu re Post-Dialysis 98.4 degF Standing Heart Rate Pre-Dialysis 80 BPM Temperature Pre-Dialysis 97.8 degF November 27, 2024 In-Center Hemodialysis Treatment 9652-19-54P68:35:27.000Z 3612-79-61U22:38:27.000Z BP Sitting (Pre-Dialysis) 174/81 mmHg BP Sitting (Post-Dialysis) 148/72 mmHg Concurrent Access: falseAV Fistula Forearm (Left) Arterial BP Standing (Pre-Dialysis) 163/78 mmHg Sitti ng Heart Rate Post-Dialysis 74 BPM Sitting Heart Rate Pre-Dialysis 77 BPM Temperatu re Post-Dialysis 98.2 degF Standing Heart Rate Pre-Dialysis 78 BPM Temperature Pre-Dialysis 97.7 degF November 25, 2024 In-Center Hemodialysis Treatment [id number]:02:54.000Z 3135-52-08O19:01:55.000Z BP Sitting (Pre-Dialysis) 164/84 mmHg BP Sitting (Post-Dialysis) 158/76 mmHg Concurrent Access: falseAV Fistula Forearm (Left) Arterial BP Standing (Pre-Dialysis) 164/84 mmHg BP Standing (P ost-Dialysis) 159/75 mmHg Sitting Heart Rate Pre-Dialysis 75 BPM Sitting Heart Rate Post-Dialysis 72 BPM Standing Heart Rate Pre-Dialysis 78 BPM Standing Heart Rate Post-Dialysis 75 BPM Temperature Pre-Dialysis 97.2 degF Temperature Post -Dialysis 97.6 degF November 23, 2024 In-Center Hemodialysis Treatment 8015-76-97K72:36:21.000Z 8468-38-90N71:37:22.000Z BP Sitting (Pre-Dialysis) 165/87 mmHg BP Sitting (Post-Dialysis) 152/73 mmHg Concurrent Access: falseAV Fistula Forearm (Left) Arterial BP Standing (Pre-Dialysis) 156/79 mmHg BP Standing (P ost-Dialysis) 160/70 mmHg Sitting Heart Rate Pre-Dialysis 78 BPM Sitting Heart Rate Post-Dialysis 71 BPM Standing Heart Rate Pre-Dialysis 81 BPM Standing Heart Rate Post-Dialysis 71 BPM Temperature Pre-Dialysis 97.8 degF Temperature Post -Dialysis 97.8 degF November 20, 2024 In-Center Hemodialysis Treatment [id number]:33:33.000Z 1203-62-40A13:34:33.000Z BP Sitting (Pre-Dialysis) 169/87 mmHg BP Sitting (Post-Dialysis) 152/72 mmHg Concurrent Access: falseAV Fistula Forearm (Left) Arterial BP Standing (Pre-Dialysis) 164/78 mmHg Sitting Heart Rate Post-Dialysis 74 BPM Sitting Heart Rate Pre-Dialysis 76 BPM Temperatu re Post-Dialysis 98 degF Standing Heart Rate Pre-Dialysis 76 BPM Temperature Pre-Dialysis 97.7 degF November 18, 2024 In-Center Hemodialysis Treatment 1387-04-39X91:50:00.000Z 4311-54-32U53:47:01.000Z BP Sitting (Pre-Dialysis) 164/87 mmHg BP Sitting (Post-Dialysis) 160/67 mmHg Concurrent Access: falseAV Fistula Forearm (Left) Arterial BP Standing (Pre-Dialysis) 163/87 mmHg BP Standing (P ost-Dialysis) 158/80 mmHg Sitting Heart Rate Pre-Dialysis 75 BPM Sitting Heart Rate Post-Dialysis 73 BPM Standing Heart Rate Pre-Dialysis 74 BPM Standing Heart Rate Post-Dialysis 75 BPM Temperature Pre-Dialysis 98 degF Temperature Post -Dialysis 97.5 degF November 16, 2024 In-Center Hemodialysis Treatment 5677-09-82M48:08:28.000Z 5937-66-37E76:27:28.000Z BP Sitting (Pre-Dialysis) 168/81 mmHg BP Sitting (Post-Dialysis) 155/75 mmHg Concurrent Access: falseAV Fistula Forearm (Left) Arterial BP Standing (Pre-Dialysis) 160/77 mmHg Sitti ng Heart Rate Post-Dialysis 76 BPM Sitting Heart Rate Pre-Dialysis 75 BPM Temperatu re Post-Dialysis 97.4 degF Standing Heart Rate Pre-Dialysis 76 BPM Temperature Pre-Dialysis 97.8 degF November 13, 2024 In-Center Hemodialysis Treatment 450 mL/min 500 mL/min Concurrent Access: false November 11, 2024 In-Center Hemodialysis Treatment 450 mL/min 500 mL/min Concurrent Access: false November 06, 2024 In-Center Hemodialysis Treatment 20 25 -0 - T1 0: 53 :0 0. 00 0Z 20 25 -0 4- 18 T1 4: 56 :4 6. 00 0Z BP Sitting (Pre-Dial ysis) 160/79 mmHg BP Sitting (Post-Sandra lysis) 149/74 mmHg Concurrent Access: falseAV Fistula Forearm (Left) Arterial BP Standing (Pre-Dialysis) 162/79 mmHg Sitti ng Heart Rate Post-Dialysis 71 BPM Sitting Heart Rate Pre-Dialysis 77 BPM Temperatu re Post-Dialysis 97.8 degF Standing Heart Rate Pre-Dialysis 77 BPM Temperature Pre-Dialysis 98.2 degF November 04, 2024 In-Center Hemodialysis Treatment 8217-72-61Q97:51:00.000Z 4066-41-57N88:50:14.000Z BP Sitting (Pre-Dialysis) 171/81 mmHg BP Sitting (Post-Dialysis) 155/74 mmHg Concurrent Access: falseAV Fistula Forearm (Left) Arterial BP Standing (Pre-Dialysis) 167/80 mmHg BP Standing (P ost-Dialysis) 150/71 mmHg Sitting Heart Rate Pre-Dialysis 75 BPM Sitting Heart Rate Post-Dialysis 73 BPM Standing Heart Rate Pre-Dialysis 76 BPM Standing Heart Rate Post-Dialysis 75 BPM Temperature Pre-Dialysis 98.1 degF Temperature Post -Dialysis 97.8 degF November 02, 2024 In-Center Hemodialysis Treatment 3689-54-27H41:07:22.000Z 4141-87-24Z40:03:09.000Z BP Sitting (Pre-Dialysis) 157/80 mmHg BP Sitting (Post-Dialysis) 164/88 mmHg Concurrent Access: falseAV Fistula Forearm (Left) Arterial BP Standing (Pre-Dialysis) 158/77 mmHg BP Standing (P ost-Dialysis) 159/73 mmHg Sitting Heart Rate Pre-Dialysis 72 BPM Sitting Heart Rate Post-Dialysis 69 BPM Standing Heart Rate Pre-Dialysis 73 BPM Standing Heart Rate Post-Dialysis 72 BPM Temperature Pre-Dialysis 97.8 degF Temperature Post -Dialysis 97.9 degF October 30, 2024 In-Center Hemodialysis Treatment 4136-82-30S95:52:00.000Z 0419-54-36H64:52:23.000Z BP Sitting (Pre-Dialysis) 188/82 mmHg BP Sitting (Post-Dialysis) 152/74 mmHg Concurrent Access: falseAV Fistula Forearm (Left) Arterial BP Standing (Pre-Dialysis) 167/81 mmHg Sitting Heart Rate Post-Dialysis 68 BPM Sitting Heart Rate Pre-Dialysis 76 BPM Temperatu re Post-Dialysis 98 degF Standing Heart Rate Pre-Dialysis 76 BPM Temperature Pre-Dialysis 97.9 degF October 28, 2024 In-Center Hemodialysis Treatment 6676-70-88C48:53:50.000Z 9921-44-83H12:56:50.000Z BP Sitting (Pre-Dialysis) 177/87 mmHg BP Sitting (Post-Dialysis) 165/74 mmHg Concurrent Access: falseAV Fistula Forearm (Left) Arterial BP Standing (Pre-Dialysis) 169/80 mmHg BP Standing (P ost-Dialysis) 164/75 mmHg Sitting Heart Rate Pre-Dialysis 79 BPM Sitting Heart Rate Post-Dialysis 78 BPM Standing Heart Rate Pre-Dialysis 79 BPM Standing Heart Rate Post-Dialysis 78 BPM Temperature Pre-Dialysis 97.9 degF Temperature Post -Dialysis 98 degF October 26, 2024 In-Center Hemodialysis Treatment [id number]:43:16.000Z 6646-85-34O60:32:17.000Z BP Sitting (Pre-Dialysis) 176/91 mmHg BP Sitting (Post-Dialysis) 164/75 mmHg Concurrent Access: falseAV Fistula Forearm (Left) Arterial BP Standing (Pre-Dialysis) 171/80 mmHg Sitti ng Heart Rate Post-Dialysis 73 BPM Sitting Heart Rate Pre-Dialysis 75 BPM Temperatu re Post-Dialysis 97.4 degF Standing Heart Rate Pre-Dialysis 79 BPM Temperature Pre-Dialysis 98 degF October 23, 2024 In-Center Hemodialysis Treatment 3880-15-86B29:45:42.000Z 4948-15-54K09:52:43.000Z BP Sitting (Pre-Dialysis) 168/88 mmHg BP Sitting (Post-Dialysis) 148/74 mmHg Concurrent Access: falseAV Fistula Forearm (Left) Arterial BP Standing (Pre-Dialysis) 161/73 mmHg BP Standing (P ost-Dialysis) 152/69 mmHg Sitting Heart Rate Pre-Dialysis 78 BPM Sitting Heart Rate Post-Dialysis 70 BPM Standing Heart Rate Pre-Dialysis 77 BPM Standing Heart Rate Post-Dialysis 73 BPM Temperature Pre-Dialysis 98 degF Temperature Post -Dialysis 98 degF October 21, 2024 In-Center Hemodialysis Treatment 1899-59-06O95:53:15.000Z 3409-91-21E11:55:15.000Z BP Sitting (Pre-Dialysis) 169/89 mmHg BP Sitting (Post-Dialysis) 163/76 mmHg Concurrent Access: falseAV Fistula Forearm (Left) Arterial BP Standing (Pre-Dialysis) 168/79 mmHg BP Standing (P [facility]ialysis) 164/71 mmHg Sitting Heart Rate Pre-Dialysis 77 BPM Sitting Heart Rate Post-Dialysis 70 BPM Standing Heart Rate Pre-Dialysis 77 BPM Standing Heart Rate Post-Dialysis 72 BPM Temperature Pre-Dialysis 97.9 degF Temperature Post -Dialysis 98.1 degF October 19, 2024 In-Center Hemodialysis Treatment [id number]:46:42.000Z [id number]:46:43.000Z BP Sitting (Pre-Dialysis) 166/82 mmHg BP Sitting (Post-Dialysis) 136/75 mmHg Concurrent Access: falseAV Fistula Forearm (Left) Arterial BP Standing (Pre-Dialysis) 166/83 mmHg Sitting Heart Rate Post-Dialysis 74 BPM Sitting Heart Rate Pre-Dialysis 75 BPM Temperatu re Post-Dialysis 98 degF Standing Heart Rate Pre-Dialysis 82 BPM Temperature Pre-Dialysis 98 degF October 16, 2024 In-Center Hemodialysis Treatment 8010-02-45Z49:00:53.000Z 3917-86-85W11:01:53.000Z BP Sitting (Pre-Dialysis) 171/86 mmHg BP Sitting (Post-Dialysis) 172/80 mmHg Concurrent Access: falseAV Fistula Forearm (Left) Arterial BP Standing (Pre-Dialysis) 181/81 mmHg Sitting Heart Rate Post-Dialysis 77 BPM Sitting Heart Rate Pre-Dialysis 83 BPM Temperatu re Post-Dialysis 98 degF Standing Heart Rate Pre-Dialysis 83 BPM Temperature Pre-Dialysis 98 degF October 14, 2024 In-Center Hemodialysis Treatment [id number]:54:20.000Z [id number]:55:20.000Z BP Sitting (Pre-Dialysis) 184/87 mmHg BP Sitting (Post-Dialysis) 144/70 mmHg Concurrent Access: falseAV Fistula Forearm (Left) Arterial BP Standing (Pre-Dialysis) 178/85 mmHg Sitti ng Heart Rate Post-Dialysis 75 BPM Sitting Heart Rate Pre-Dialysis 79 BPM Temperatu re Post-Dialysis 97.5 degF Standing Heart Rate Pre-Dialysis 81 BPM Temperature Pre-Dialysis 98.3 degF October 12, 2024 In-Center Hemodialysis Treatment 2993-68-00J48:41:00.000Z 2841-40-76H35:37:04.000Z BP Sitting (Pre-Dialysis) 171/81 mmHg BP Sitting (Post-Dialysis) 142/66 mmHg Concurrent Access: falseAV Fistula Forearm (Left) Arterial BP Standing (Pre-Dialysis) 160/78 mmHg BP Standing (P ost-Dialysis) 131/61 mmHg Sitting Heart Rate Pre-Dialysis 74 BPM Sitting Heart Rate Post-Dialysis 75 BPM Standing Heart Rate Pre-Dialysis 77 BPM Standing Heart Rate Post-Dialysis 79 BPM Temperature Pre-Dialysis 98.4 degF October 09, 2024 In-Center Hemodialysis Treatment [id number]:38:00.000Z 8696-58-00S05:43:15.000Z BP Sitting (Pre-Dialysis) 180/87 mmHg BP Sitting (Post-Dialysis) 143/69 mmHg Concurrent Access: falseAV Fistula Forearm (Left) Arterial BP Standing (Pre-Dialysis) 182/86 mmHg BP Standing (P ost-Dialysis) 124/56 mmHg Sitting Heart Rate Pre-Dialysis 80 BPM Sitting Heart Rate Post-Dialysis 79 BPM Standing Heart Rate Pre-Dialysis 81 BPM Standing Heart Rate Post-Dialysis 82 BPM Temperature Pre-Dialysis 98.6 degF Temperature Post -Dialysis 97.6 degF October 07, 2024 In-Center Hemodialysis Treatment 1332-05-02K34:43:58.000Z [id number]:44:58.000Z BP Sitting (Pre-Dialysis) 192/102 mmHg BP Sitting (Post-Dialysis) 163/80 mmHg Concurrent Access: falseAV Fistula Forearm (Left) Arterial BP Standing (Pre-Dialysis) 188/86 mmHg Sitti ng Heart Rate Post-Dialysis 75 BPM Sitting Heart Rate Pre-Dialysis 82 BPM Temperatu re Post-Dialysis 97.8 degF Standing Heart Rate Pre-Dialysis 84 BPM Temperature Pre-Dialysis 96.8 degF October 05, 2024 In-Center Hemodialysis Treatment [id number]:52:25.000Z [id number]:54:25.000Z BP Sitting (Pre-Dialysis) 177/79 mmHg BP Sitting (Post-Dialysis) 159/75 mmHg Concurrent Access: falseAV Fistula Forearm (Left) Arterial Sitting Heart Rate Pre-Dialysis 84 BPM Sitting H eart Rate Post-Dialysis 77 BPM Temperature Pre-Dialysis 98.8 degF Temperature Post -Dialysis 98 degF October 02, 2024 In-Center Hemodialysis Treatment 1146-05-49X70:50:57.000Z [id number]:55:57.000Z BP Sitting (Pre-Dialysis) 182/84 mmHg BP Sitting (Post-Dialysis) 140/70 mmHg Concurrent Access: falseAV Fistula Forearm (Left) Arterial BP Standing (Pre-Dialysis) 177/81 mmHg Sitti ng Heart Rate Post-Dialysis 77 BPM Sitting Heart Rate Pre-Dialysis 79 BPM Temperatu re Post-Dialysis 97.9 degF Standing Heart Rate Pre-Dialysis 79 BPM Temperature Pre-Dialysis 98 degF September 30, 2024 In-Center Hemodialysis Treatment [id number]:58:00.000Z 4793-63-05Y21:59:00.000Z BP Sitting (Pre-Dialysis) 176/44 mmHg BP Sitting (Post-Dialysis) 167/79 mmHg Concurrent Access: falseAV Fistula Forearm (Left) Arterial BP Standing (Pre-Dialysis) 165/84 mmHg BP Standing (P ost-Dialysis) 148/72 mmHg Sitting Heart Rate Pre-Dialysis 72 BPM Sitting Heart Rate Post-Dialysis 70 BPM Standing Heart Rate Pre-Dialysis 77 BPM Standing Heart Rate Post-Dialysis 73 BPM Temperature Pre-Dialysis 98 degF Temperature Post -Dialysis 97.2 degF September 28, 2024 In-Center Hemodialysis Treatment [id number]:47:50.000Z 8633-86-38L08:49:51.000Z BP Sitting (Pre-Dialysis) 174/86 mmHg BP Sitting (Post-Dialysis) 167/75 mmHg Concurrent Access: falseAV Fistula Forearm (Left) Arterial BP Standing (Pre-Dialysis) 155/75 mmHg BP Standing (P ost-Dialysis) 159/68 mmHg Sitting Heart Rate Pre-Dialysis 80 BPM Sitting Heart Rate Post-Dialysis 74 BPM Standing Heart Rate Pre-Dialysis 79 BPM Standing Heart Rate Post-Dialysis 77 BPM Temperature Pre-Dialysis 97.6 degF Temperature Post -Dialysis 97.8 degF September 26, 2024 In-Center Hemodialysis Treatment [id number]:32:10.000Z 2033-74-30R46:31:10.000Z BP Sitting (Pre-Dialysis) 174/80 mmHg BP Sitting (Post-Dialysis) 128/83 mmHg Concurrent Access: falseAV Fistula Forearm (Left) Arterial BP Standing (Pre-Dialysis) 162/77 mmHg BP Standing (P ost-Dialysis) 146/68 mmHg Sitting Heart Rate Pre-Dialysis 83 BPM Sitting Heart Rate Post-Dialysis 79 BPM Standing Heart Rate Pre-Dialysis 83 BPM Standing Heart Rate Post-Dialysis 79 BPM Temperature Pre-Dialysis 97.7 degF Temperature Post -Dialysis 97.7 degF September 23, 2024 In-Center Hemodialysis Treatment 2068-46-07X50:58:00.000Z 6568-65-20I51:04:45.000Z BP Sitting (Pre-Dialysis) 176/87 mmHg BP Sitting (Post-Dialysis) 147/68 mmHg Concurrent Access: falseAV Fistula Forearm (Left) Arterial BP Standing (Pre-Dialysis) 165/78 mmHg BP Standing (P ost-Dialysis) 146/64 mmHg Sitting Heart Rate Pre-Dialysis 78 BPM Sitting Heart Rate Post-Dialysis 79 BPM Standing Heart Rate Pre-Dialysis 82 BPM Standing Heart Rate Post-Dialysis 80 BPM Temperature Pre-Dialysis 98 degF Temperature Post -Dialysis 98 degF September 21, 2024 In-Center Hemodialysis Treatment [id number]:07:11.000Z [id number]:11:12.000Z BP Sitting (Pre-Dialysis) 165/103 mmHg BP Sitting (Post-Dialysis) 153/73 mmHg Concurrent Access: falseAV Fistula Forearm (Left) Arterial BP Standing (Pre-Dialysis) 163/80 mmHg BP Standing (P ost-Dialysis) 131/68 mmHg Sitting Heart Rate Pre-Dialysis 75 BPM Sitting Heart Rate Post-Dialysis 74 BPM Standing Heart Rate Pre-Dialysis 79 BPM Standing Heart Rate Post-Dialysis 77 BPM Temperature Pre-Dialysis 98 degF Temperature Post -Dialysis 98 degF September 18, 2024 In-Center Hemodialysis Treatment 3752-44-23Y03:07:22.000Z [id number]:13:23.000Z BP Sitting (Pre-Dialysis) 171/86 mmHg BP Sitting (Post-Dialysis) 151/75 mmHg Concurrent Access: falseAV Fistula Forearm (Left) Arterial BP Standing (Pre-Dialysis) 167/81 mmHg BP Standing (P ost-Dialysis) 148/65 mmHg Sitting Heart Rate Pre-Dialysis 73 BPM Sitting Heart Rate Post-Dialysis 67 BPM Standing Heart Rate Pre-Dialysis 74 BPM Standing Heart Rate Post-Dialysis 72 BPM Temperature Pre-Dialysis 98 degF Temperature Post -Dialysis 98 degF September 16, 2024 In-Center Hemodialysis Treatment [id number]:05:05.000Z 5856-72-05H17:02:06.000Z BP Sitting (Pre-Dialysis) 167/86 mmHg BP Sitting (Post-Dialysis) 171/83 mmHg Concurrent Access: falseAV Fistula Forearm (Left) Arterial BP Standing (Pre-Dialysis) 165/84 mmHg Sitti ng Heart Rate Post-Dialysis 73 BPM Sitting Heart Rate Pre-Dialysis 89 BPM Temperatu re Post-Dialysis 97.7 degF Standing Heart Rate Pre-Dialysis 82 BPM Temperature Pre-Dialysis 97.7 degF September 14, 2024 In-Center Hemodialysis Treatment 6831-87-64K30:02:00.000Z 0305-65-82L38:01:33.000Z BP Sitting (Pre-Dialysis) 163/86 mmHg BP Sitting (Post-Dialysis) 156/73 mmHg Concurrent Access: falseAV Fistula Forearm (Left) Arterial BP Standing (Pre-Dialysis) 158/74 mmHg BP Standing (P ost-Dialysis) 156/70 mmHg Sitting Heart Rate Pre-Dialysis 80 BPM Sitting Heart Rate Post-Dialysis 76 BPM Standing Heart Rate Pre-Dialysis 83 BPM Standing Heart Rate Post-Dialysis 76 BPM Temperature Pre-Dialysis 97.1 degF Temperature Post -Dialysis 97.9 degF September 11, 2024 In-Center Hemodialysis Treatment [id number]:12:57.000Z 8994-05-51N19:12:57.000Z BP Sitting (Pre-Dialysis) 177/85 mmHg BP Sitting (Post-Dialysis) 139/65 mmHg Concurrent Access: falseAV Fistula Forearm (Left) Arterial BP Standing (Pre-Dialysis) 151/75 mmHg BP Standing (P ost-Dialysis) 158/78 mmHg Sitting Heart Rate Pre-Dialysis 87 BPM Sitting Heart Rate Post-Dialysis 80 BPM Standing Heart Rate Pre-Dialysis 90 BPM Standing Heart Rate Post-Dialysis 77 BPM Temperature Pre-Dialysis 98 degF Temperature Post -Dialysis 97.8 degF September 09, 2024 In-Center Hemodialysis Treatment 8544-94-96C17:01:24.000Z 7905-28-63C24:01:24.000Z BP Sitting (Pre-Dialysis) 176/87 mmHg BP Sitting (Post-Dialysis) 149/68 mmHg Concurrent Access: falseAV Fistula Forearm (Left) Arterial BP Standing (Pre-Dialysis) 185/88 mmHg BP Standing (P ost-Dialysis) 151/68 mmHg Sitting Heart Rate Pre-Dialysis 82 BPM Sitting Heart Rate Post-Dialysis 82 BPM Standing Heart Rate Pre-Dialysis 82 BPM Standing Heart Rate Post-Dialysis 84 BPM Temperature Pre-Dialysis 98 degF Temperature Post -Dialysis 98 degF September 07, 2024 In-Center Hemodialysis Treatment [id number]:00:00.000Z 6757-65-12F55:01:51.000Z BP Sitting (Pre-Dialysis) 177/88 mmHg BP Sitting (Post-Dialysis) 144/60 mmHg Concurrent Access: falseAV Fistula Forearm (Left) Arterial BP Standing (Pre-Dialysis) 176/77 mmHg Sitti ng Heart Rate Post-Dialysis 79 BPM Sitting Heart Rate Pre-Dialysis 80 BPM Temperatu re Post-Dialysis 97.5 degF Standing Heart Rate Pre-Dialysis 78 BPM Temperature Pre-Dialysis 97.3 degF September 04, 2024 In-Center Hemodialysis Treatment [id number]:54:00.000Z 5929-12-25T09:57:25.000Z BP Sitting (Pre-Dialysis) 181/91 mmHg BP Sitting (Post-Dialysis) 159/79 mmHg Concurrent Access: falseAV Fistula Forearm (Left) Arterial BP Standing (Pre-Dialysis) 173/82 mmHg BP Standing (P ost-Dialysis) 141/69 mmHg Sitting Heart Rate Pre-Dialysis 82 BPM Sitting Heart Rate Post-Dialysis 80 BPM Standing Heart Rate Pre-Dialysis 83 BPM Standing Heart Rate Post-Dialysis 84 BPM Temperature Pre-Dialysis 97.5 degF Temperature Post -Dialysis 97.3 degF September 02, 2024 In-Center Hemodialysis Treatment [id number]:06:51.000Z [id number]:38:52.000Z BP Sitting (Pre-Dialysis) 183/92 mmHg BP Sitting (Post-Dialysis) 158/79 mmHg Concurrent Access: falseAV Fistula Forearm (Left) Arterial BP Standing (Pre-Dialysis) 156/78 mmHg BP Standing (P ost-Dialysis) 156/86 mmHg Sitting Heart Rate Pre-Dialysis 77 BPM Sitting Heart Rate Post-Dialysis 74 BPM Standing Heart Rate Pre-Dialysis 80 BPM Standing Heart Rate Post-Dialysis 77 BPM Temperature Pre-Dialysis 97.3 degF Temperature Post -Dialysis 97 degF August 31, 2024 In-Center Hemodialysis Treatment [id number]:07:18.000Z 0940-86-50V45:18:19.000Z BP Sitting (Pre-Dialysis) 143/73 mmHg BP Sitting (Post-Dialysis) 152/75 mmHg Concurrent Access: falseAV Fistula Forearm (Left) Arterial BP Standing (Pre-Dialysis) 139/70 mmHg BP Standing (P ost-Dialysis) 135/62 mmHg Sitting Heart Rate Pre-Dialysis 75 BPM Sitting Heart Rate Post-Dialysis 73 BPM Standing Heart Rate Pre-Dialysis 75 BPM Standing Heart Rate Post-Dialysis 79 BPM Temperature Pre-Dialysis 98 degF Temperature Post -Dialysis 97.2 degF August 28, 2024 In-Center Hemodialysis Treatment [id number]:11:02.000Z 1514-94-22T00:13:03.000Z BP Sitting (Pre-Dialysis) 168/80 mmHg BP Sitting (Post-Dialysis) 143/70 mmHg Concurrent Access: falseAV Fistula Forearm (Left) Arterial BP Standing (Pre-Dialysis) 146/70 mmHg BP Standing (P ost-Dialysis) 130/62 mmHg Sitting Heart Rate Pre-Dialysis 73 BPM Sitting Heart Rate Post-Dialysis 71 BPM Standing Heart Rate Pre-Dialysis 74 BPM Standing Heart Rate Post-Dialysis 73 BPM Temperature Pre-Dialysis 98 degF Temperature Post -Dialysis 97.2 degF August 26, 2024 In-Center Hemodialysis Treatment 7510-76-53V97:54:00.000Z 4574-32-13B73:32:02.000Z BP Sitting (Pre-Dialysis) 163/79 mmHg BP Sitting (Post-Dialysis) 157/70 mmHg Concurrent Access: falseAV Fistula Forearm (Left) Arterial BP Standing (Pre-Dialysis) 144/71 mmHg BP Standing (P ost-Dialysis) 130/59 mmHg Sitting Heart Rate Pre-Dialysis 70 BPM Sitting Heart Rate Post-Dialysis 70 BPM Standing Heart Rate Pre-Dialysis 72 BPM Standing Heart Rate Post-Dialysis 72 BPM Temperature Pre-Dialysis 97.8 degF Temperature Post -Dialysis 97.5 degF August 24, 2024 In-Center Hemodialysis Treatment 3555-45-45N62:06:28.000Z 3801-47-69V21:03:29.000Z BP Sitting (Pre-Dialysis) 164/80 mmHg BP Sitting (Post-Dialysis) 141/63 mmHg Concurrent Access: falseAV Fistula Forearm (Left) Arterial BP Standing (Pre-Dialysis) 121/70 mmHg BP Standing (P ost-Dialysis) 146/66 mmHg Sitting Heart Rate Pre-Dialysis 71 BPM Sitting Heart Rate Post-Dialysis 68 BPM Standing Heart Rate Pre-Dialysis 73 BPM Standing Heart Rate Post-Dialysis 66 BPM Temperature Pre-Dialysis 97.8 degF Temperature Post -Dialysis 97.2 degF August 21, 2024 In-Center Hemodialysis Treatment 3787-78-87M09:01:30.000Z 8565-06-89M63:01:31.000Z BP Sitting (Pre-Dialysis) 173/80 mmHg BP Sitting (Post-Dialysis) 169/72 mmHg Concurrent Access: falseAV Fistula Forearm (Left) Arterial BP Standing (Pre-Dialysis) 153/66 mmHg BP Standing (P ost-Dialysis) 135/60 mmHg Sitting Heart Rate Pre-Dialysis 78 BPM Sitting Heart Rate Post-Dialysis 72 BPM Standing Heart Rate Pre-Dialysis 80 BPM Standing Heart Rate Post-Dialysis 76 BPM Temperature Pre-Dialysis 98.1 degF Temperature Post -Dialysis 97.8 degF August 19, 2024 In-Center Hemodialysis Treatment [id number]:51:57.000Z 4311-85-80Y56:56:58.000Z BP Sitting (Pre-Dialysis) 181/87 mmHg BP Sitting (Post-Dialysis) 185/74 mmHg Concurrent Access: falseAV Fistula Forearm (Left) Arterial BP Standing (Pre-Dialysis) 163/72 mmHg BP Standing (P ost-Dialysis) 174/73 mmHg Sitting Heart Rate Pre-Dialysis 76 BPM Sitting Heart Rate Post-Dialysis 70 BPM Standing Heart Rate Pre-Dialysis 77 BPM Standing Heart Rate Post-Dialysis 75 BPM Temperature Pre-Dialysis 97.2 degF Temperature Post -Dialysis 97.5 degF August 18, 2024 In-Center Hemodialysis Treatment [id number]:38:48.000Z 8438-68-27B21:39:49.000Z BP Sitting (Pre-Dialysis) 155/49 mmHg BP Sitting (Post-Dialysis) 166/73 mmHg Concurrent Access: falseAV Fistula Forearm (Left) Arterial BP Standing (Pre-Dialysis) 140/71 mmHg Sitting Heart Rate Post-Dialysis 67 BPM Sitting Heart Rate Pre-Dialysis 68 BPM Temperatu re Post-Dialysis 97 degF Standing Heart Rate Pre-Dialysis 75 BPM Temperature Pre-Dialysis 97.8 degF August 14, 2024 In-Center Hemodialysis Treatment 2451-15-87U21:00:00.000Z 8965-56-19R02:59:35.000Z BP Sitting (Pre-Dialysis) 161/81 mmHg BP Sitting (Post-Dialysis) 131/64 mmHg Concurrent Access: falseAV Fistula Forearm (Left) Arterial BP Standing (Pre-Dialysis) 152/76 mmHg BP Standing (P ost-Dialysis) 109/57 mmHg Sitting Heart Rate Pre-Dialysis 73 BPM Sitting Heart Rate Post-Dialysis 71 BPM Standing Heart Rate Pre-Dialysis 72 BPM Standing Heart Rate Post-Dialysis 73 BPM Temperature Pre-Dialysis 97.9 degF Temperature Post -Dialysis 97.2 degF August 12, 2024 In-Center Hemodialysis Treatment [id number]:09:02.000Z 7489-57-75E58:11:02.000Z BP Sitting (Pre-Dialysis) 174/98 mmHg BP Sitting (Post-Dialysis) 153/70 mmHg Concurrent Access: falseAV Fistula Forearm (Left) Arterial BP Standing (Pre-Dialysis) 174/81 mmHg Sitti ng Heart Rate Post-Dialysis 74 BPM Sitting Heart Rate Pre-Dialysis 82 BPM Temperatu re Post-Dialysis 98.2 degF Standing Heart Rate Pre-Dialysis 83 BPM Temperature Pre-Dialysis 97.5 degF August 10, 2024 In-Center Hemodialysis Treatment 7587-83-27C19:57:29.000Z 6475-87-65C87:59:29.000Z BP Sitting (Pre-Dialysis) 152/77 mmHg BP Sitting (Post-Dialysis) 155/78 mmHg Concurrent Access: falseAV Fistula Forearm (Left) Arterial BP Standing (Pre-Dialysis) 141/69 mmHg BP Standing (P ost-Dialysis) 128/64 mmHg Sitting Heart Rate Pre-Dialysis 67 BPM Sitting Heart Rate Post-Dialysis 71 BPM Standing Heart Rate Pre-Dialysis 68 BPM Standing Heart Rate Post-Dialysis 71 BPM Temperature Pre-Dialysis 97.9 degF Temperature Post -Dialysis 98 degF August 07, 2024 In-Center Hemodialysis Treatment 3025-37-39D36:58:00.000Z 0701-76-88K60:02:00.000Z BP Sitting (Pre-Dialysis) 158/79 mmHg BP Sitting (Post-Dialysis) 144/69 mmHg Concurrent Access: falseAV Fistula Forearm (Left) Arterial BP Standing (Pre-Dialysis) 175/73 mmHg BP Standing (P ost-Dialysis) 114/56 mmHg Sitting Heart Rate Pre-Dialysis 75 BPM Sitting Heart Rate Post-Dialysis 70 BPM Standing Heart Rate Pre-Dialysis 76 BPM Standing Heart Rate Post-Dialysis 74 BPM Temperature Pre-Dialysis 97.5 degF Temperature Post -Dialysis 97.3 degF August 06, 2024 In-Center Hemodialysis Treatment 2026-41-40E47:38:00.000Z 4715-60-34Z14:41:03.000Z BP Sitting (Pre-Dialysis) 178/81 mmHg BP Sitting (Post-Dialysis) 159/72 mmHg Concurrent Access: falseAV Fistula Forearm (Left) Arterial BP Standing (Pre-Dialysis) 147/77 mmHg BP Standing (P ost-Dialysis) 157/74 mmHg Sitting Heart Rate Pre-Dialysis 70 BPM Sitting Heart Rate Post-Dialysis 65 BPM Standing Heart Rate Pre-Dialysis 71 BPM Standing Heart Rate Post-Dialysis 65 BPM Temperature Pre-Dialysis 97.8 degF Temperature Post -Dialysis 97.4 degF August 03, 2024 In-Center Hemodialysis Treatment 5120-31-99H39:56:00.000Z 4582-32-58T48:58:36.000Z BP Sitting (Pre-Dialysis) 177/86 mmHg BP Sitting (Post-Dialysis) 152/72 mmHg Concurrent Access: falseAV Fistula Forearm (Left) Arterial BP Standing (Pre-Dialysis) 160/73 mmHg BP Standing (P ost-Dialysis) 153/66 mmHg Sitting Heart Rate Pre-Dialysis 69 BPM Sitting Heart Rate Post-Dialysis 67 BPM Standing Heart Rate Pre-Dialysis 70 BPM Standing Heart Rate Post-Dialysis 70 BPM Temperature Pre-Dialysis 97.7 degF Temperature Post -Dialysis 97.6 degF July 31, 2024 In-Center Hemodialysis Treatment [id number]:07:00.000Z 3702-36-61T65:09:01.000Z BP Sitting (Pre-Dialysis) 176/82 mmHg BP Sitting (Post-Dialysis) 146/69 mmHg Concurrent Access: falseAV Fistula Forearm (Left) Arterial BP Standing (Pre-Dialysis) 175/80 mmHg BP Standing (P ost-Dialysis) 123/53 mmHg Sitting Heart Rate Pre-Dialysis 75 BPM Sitting Heart Rate Post-Dialysis 70 BPM Standing Heart Rate Pre-Dialysis 75 BPM Standing Heart Rate Post-Dialysis 74 BPM Temperature Pre-Dialysis 98 degF Temperature Post -Dialysis 98 degF July 29, 2024 In-Center Hemodialysis Treatment 5918-16-00H69:57:00.000Z 9729-71-41X42:01:28.000Z BP Sitting (Pre-Dialysis) 166/77 mmHg BP Sitting (Post-Dialysis) 147/64 mmHg Concurrent Access: falseAV Fistula Forearm (Left) Arterial BP Standing (Pre-Dialysis) 142/65 mmHg BP Standing (P ost-Dialysis) 133/67 mmHg Sitting Heart Rate Pre-Dialysis 77 BPM Sitting Heart Rate Post-Dialysis 71 BPM Standing Heart Rate Pre-Dialysis 78 BPM Standing Heart Rate Post-Dialysis 73 BPM Temperature Pre-Dialysis 97.8 degF Temperature Post -Dialysis 97.8 degF July 28, 2024 In-Center Hemodialysis Treatment 3648-68-10M27:54:08.000Z 1808-59-50B28:53:08.000Z BP Sitting (Pre-Dialysis) 146/56 mmHg BP Sitting (Post-Dialysis) 160/76 mmHg Concurrent Access: falseAV Fistula Forearm (Left) Arterial BP Standing (Pre-Dialysis) 172/75 mmHg BP Standing (P ost-Dialysis) 154/95 mmHg Sitting Heart Rate Pre-Dialysis 73 BPM Sitting Heart Rate Post-Dialysis 71 BPM Standing Heart Rate Pre-Dialysis 72 BPM Standing Heart Rate Post-Dialysis 71 BPM Temperature Pre-Dialysis 97.8 degF Temperature Post -Dialysis 97.7 degF July 24, 2024 In-Center Hemodialysis Treatment [id number]:58:05.000Z 5292-83-25R76:04:05.000Z BP Sitting (Pre-Dialysis) 140/73 mmHg BP Sitting (Post-Dialysis) 147/71 mmHg Concurrent Access: falseAV Fistula Forearm (Left) Arterial BP Standing (Pre-Dialysis) 126/66 mmHg BP Standing (P ost-Dialysis) 112/59 mmHg Sitting Heart Rate Pre-Dialysis 66 BPM Sitting Heart Rate Post-Dialysis 66 BPM Standing Heart Rate Pre-Dialysis 67 BPM Standing Heart Rate Post-Dialysis 68 BPM Temperature Pre-Dialysis 97.5 degF Temperature Post -Dialysis 97.8 degF July 21, 2024 In-Center Hemodialysis Treatment 2855-84-77P25:45:15.000Z 5739-26-47Y37:55:16.000Z BP Sitting (Pre-Dialysis) 159/79 mmHg BP Sitting (Post-Dialysis) 139/69 mmHg Concurrent Access: falseAV Fistula Forearm (Left) Arterial BP Standing (Pre-Dialysis) 147/75 mmHg BP Standing (P ost-Dialysis) 120/58 mmHg Sitting Heart Rate Pre-Dialysis 72 BPM Sitting Heart Rate Post-Dialysis 70 BPM Standing Heart Rate Pre-Dialysis 73 BPM Standing Heart Rate Post-Dialysis 74 BPM Temperature Pre-Dialysis 97.8 degF Temperature Post -Dialysis 97.4 degF July 19, 2024 In-Center Hemodialysis Treatment [id number]:00:42.000Z 4950-63-33Y64:15:42.000Z BP Sitting (Pre-Dialysis) 141/67 mmHg BP Sitting (Post-Dialysis) 145/65 mmHg Concurrent Access: falseAV Fistula Forearm (Left) Arterial BP Standing (Pre-Dialysis) 167/78 mmHg BP Standing (P ost-Dialysis) 145/70 mmHg Sitting Heart Rate Pre-Dialysis 72 BPM Sitting Heart Rate Post-Dialysis 67 BPM Standing Heart Rate Pre-Dialysis 70 BPM Standing Heart Rate Post-Dialysis 68 BPM Temperature Pre-Dialysis 97.6 degF Temperature Post -Dialysis 97.6 degF July 17, 2024 In-Center Hemodialysis Treatment 3133-54-11P35:54:09.000Z 0115-83-09S27:54:09.000Z BP Sitting (Pre-Dialysis) 142/71 mmHg BP Sitting (Post-Dialysis) 139/65 mmHg Concurrent Access: falseAV Fistula Forearm (Left) Arterial BP Standing (Pre-Dialysis) 161/82 mmHg BP Standing (P ost-Dialysis) 108/54 mmHg Sitting Heart Rate Pre-Dialysis 64 BPM Sitting Heart Rate Post-Dialysis 72 BPM Standing Heart Rate Pre-Dialysis 70 BPM Standing Heart Rate Post-Dialysis 73 BPM Temperature Pre-Dialysis 98 degF Temperature Post -Dialysis 98 degF July 14, 2024 In-Center Hemodialysis Treatment [id number]:57:00.000Z 7349-49-66G15:57:20.000Z BP Sitting (Pre-Dialysis) 149/76 mmHg BP Sitting (Post-Dialysis) 128/75 mmHg Concurrent Access: falseAV Fistula Forearm (Left) Arterial BP Standing (Pre-Dialysis) 135/70 mmHg BP Standing (P ost-Dialysis) 113/58 mmHg Sitting Heart Rate Pre-Dialysis 70 BPM Sitting Heart Rate Post-Dialysis 67 BPM Standing Heart Rate Pre-Dialysis 71 BPM Standing Heart Rate Post-Dialysis 68 BPM Temperature Pre-Dialysis 97.5 degF Temperature Post -Dialysis 97.7 degF July 12, 2024 In-Center Hemodialysis Treatment 5722-24-63I31:43:46.000Z 2121-57-49B81:47:47.000Z BP Sitting (Pre-Dialysis) 173/89 mmHg BP Sitting (Post-Dialysis) 142/67 mmHg Concurrent Access: falseAV Fistula Forearm (Left) Arterial BP Standing (Pre-Dialysis) 163/85 mmHg BP Standing (P ost-Dialysis) 121/56 mmHg Sitting Heart Rate Pre-Dialysis 71 BPM Sitting Heart Rate Post-Dialysis 70 BPM Standing Heart Rate Pre-Dialysis 71 BPM Standing Heart Rate Post-Dialysis 72 BPM Temperature Pre-Dialysis 97.3 degF Temperature Post -Dialysis 97.9 degF July 10, 2024 In-Center Hemodialysis Treatment 8751-13-69P10:00:13.000Z 8028-34-15P82:01:14.000Z BP Sitting (Pre-Dialysis) 157/82 mmHg BP Sitting (Post-Dialysis) 148/72 mmHg Concurrent Access: falseAV Fistula Forearm (Left) Arterial BP Standing (Pre-Dialysis) 144/75 mmHg BP Standing (P ost-Dialysis) 115/61 mmHg Sitting Heart Rate Pre-Dialysis 69 BPM Sitting Heart Rate Post-Dialysis 67 BPM Standing Heart Rate Pre-Dialysis 71 BPM Standing Heart Rate Post-Dialysis 68 BPM Temperature Pre-Dialysis 97.5 degF Temperature Post -Dialysis 97.5 degF July 08, 2024 In-Center Hemodialysis Treatment [id number]:00:00.000Z 4672-46-17K29:01:41.000Z BP Sitting (Pre-Dialysis) 168/80 mmHg BP Sitting (Post-Dialysis) 150/72 mmHg Concurrent Access: falseAV Fistula Forearm (Left) Arterial BP Standing (Pre-Dialysis) 152/75 mmHg BP Standing (P ost-Dialysis) 139/69 mmHg Sitting Heart Rate Pre-Dialysis 72 BPM Sitting Heart Rate Post-Dialysis 72 BPM Standing Heart Rate Pre-Dialysis 75 BPM Standing Heart Rate Post-Dialysis 75 BPM Temperature Pre-Dialysis 97.2 degF Temperature Post -Dialysis 97.4 degF July 06, 2024 In-Center Hemodialysis Treatment [id number]:02:07.000Z [id number]:01:08.000Z BP Sitting (Pre-Dialysis) 153/75 mmHg BP Sitting (Post-Dialysis) 126/65 mmHg Concurrent Access: falseAV Fistula Forearm (Left) Arterial BP Standing (Pre-Dialysis) 144/76 mmHg BP Standing (P ost-Dialysis) 123/58 mmHg Sitting Heart Rate Pre-Dialysis 78 BPM Sitting Heart Rate Post-Dialysis 69 BPM Standing Heart Rate Pre-Dialysis 78 BPM Standing Heart Rate Post-Dialysis 73 BPM Temperature Pre-Dialysis 97.8 degF Temperature Post -Dialysis 97.8 degF July 03, 2024 In-Center Hemodialysis Treatment [id number]:09:18.000Z [id number]:38:18.000Z BP Sitting (Pre-Dialysis) 175/86 mmHg BP Sitting (Post-Dialysis) 150/66 mmHg Concurrent Access: falseAV Fistula Forearm (Left) Arterial BP Standing (Pre-Dialysis) 153/72 mmHg BP Standing (P ost-Dialysis) 121/56 mmHg Sitting Heart Rate Pre-Dialysis 73 BPM Sitting Heart Rate Post-Dialysis 72 BPM Standing Heart Rate Pre-Dialysis 75 BPM Standing Heart Rate Post-Dialysis 74 BPM Temperature Pre-Dialysis 98 degF Temperature Post -Dialysis 98 degF July 01, 2024 In-Center Hemodialysis Treatment [id number]:13:45.000Z [id number]:57:45.000Z BP Sitting (Pre-Dialysis) 166/81 mmHg BP Sitting (Post-Dialysis) 155/75 mmHg Concurrent Access: falseAV Fistula Forearm (Left) Arterial BP Standing (Pre-Dialysis) 141/65 mmHg BP Standing (P ost-Dialysis) 151/68 mmHg Sitting Heart Rate Pre-Dialysis 68 BPM Sitting Heart Rate Post-Dialysis 73 BPM Standing Heart Rate Pre-Dialysis 71 BPM Standing Heart Rate Post-Dialysis 74 BPM Temperature Pre-Dialysis 97.8 degF Temperature Post -Dialysis 97.3 degF June 29, 2024 In-Center Hemodialysis Treatment 6032-05-06O49:07:12.000Z [id number]:12:12.000Z BP Sitting (Pre-Dialysis) 162/80 mmHg BP Sitting (Post-Dialysis) 149/78 mmHg Concurrent Access: falseAV Fistula Forearm (Left) Arterial BP Standing (Pre-Dialysis) 146/74 mmHg BP Standing (P ost-Dialysis) 141/67 mmHg Sitting Heart Rate Pre-Dialysis 73 BPM Sitting Heart Rate Post-Dialysis 74 BPM Standing Heart Rate Pre-Dialysis 72 BPM Standing Heart Rate Post-Dialysis 75 BPM Temperature Pre-Dialysis 97.6 degF Temperature Post -Dialysis 97.3 degF June 26, 2024 In-Center Hemodialysis Treatment [id number]:02:04.000Z 9025-99-91R68:06:05.000Z BP Sitting (Pre-Dialysis) 154/78 mmHg BP Sitting (Post-Dialysis) 144/66 mmHg Concurrent Access: falseAV Fistula Forearm (Left) Arterial BP Standing (Pre-Dialysis) 143/72 mmHg BP Standing (P ost-Dialysis) 137/62 mmHg Sitting Heart Rate Pre-Dialysis 70 BPM Sitting Heart Rate Post-Dialysis 69 BPM Standing Heart Rate Pre-Dialysis 72 BPM Standing Heart Rate Post-Dialysis 71 BPM Temperature Pre-Dialysis 97.5 degF Temperature Post -Dialysis 98 degF June 24, 2024 In-Center Hemodialysis Treatment [id number]:11:59.000Z [id number]:10:59.000Z BP Sitting (Pre-Dialysis) 154/76 mmHg BP Sitting (Post-Dialysis) 152/86 mmHg Concurrent Access: falseAV Fistula Forearm (Left) Arterial BP Standing (Pre-Dialysis) 140/69 mmHg BP Standing (P ost-Dialysis) 120/58 mmHg Sitting Heart Rate Pre-Dialysis 76 BPM Sitting Heart Rate Post-Dialysis 74 BPM Standing Heart Rate Pre-Dialysis 78 BPM Standing Heart Rate Post-Dialysis 77 BPM Temperature Pre-Dialysis 97.8 degF Temperature Post -Dialysis 97.6 degF 2024 In-Center Hemodialysis Treatment 2937-10-11K21:55:00.000Z 8085-84-50N08:59:53.000Z BP Sitting (Pre-Dialysis) 150/104 mmHg BP Sitting (Post-Dialysis) 143/65 mmHg Concurrent Access: falseAV Fistula Forearm (Left) Arterial BP Standing (Pre-Dialysis) 147/76 mmHg BP Standing (P ost-Dialysis) 129/61 mmHg Sitting Heart Rate Pre-Dialysis 72 BPM Sitting Heart Rate Post-Dialysis 69 BPM Standing Heart Rate Pre-Dialysis 72 BPM Standing Heart Rate Post-Dialysis 70 BPM Temperature Pre-Dialysis 97.2 degF Temperature Post -Dialysis 98.2 degF June 19, 2024 In-Center Hemodialysis Treatment [id number]:54:44.000Z [id number]:57:45.000Z BP Sitting (Pre-Dialysis) 149/81 mmHg BP Sitting (Post-Dialysis) 132/55 mmHg Concurrent Access: falseAV Fistula Forearm (Left) Arterial BP Standing (Pre-Dialysis) 135/70 mmHg BP Standing (P ost-Dialysis) 106/58 mmHg Sitting Heart Rate Pre-Dialysis 68 BPM Sitting Heart Rate Post-Dialysis 64 BPM Standing Heart Rate Pre-Dialysis 69 BPM Standing Heart Rate Post-Dialysis 68 BPM Temperature Pre-Dialysis 97.8 degF Temperature Post -Dialysis 97.8 degF June 16, 2024 In-Center Hemodialysis Treatment [id number]:54:00.000Z [id number]:53:37.000Z BP Sitting (Pre-Dialysis) 143/76 mmHg BP Sitting (Post-Dialysis) 108/59 mmHg Concurrent Access: falseAV Fistula Forearm (Left) Arterial BP Standing (Pre-Dialysis) 133/64 mmHg BP Standing (P ost-Dialysis) 119/66 mmHg Sitting Heart Rate Pre-Dialysis 71 BPM Sitting Heart Rate Post-Dialysis 69 BPM Standing Heart Rate Pre-Dialysis 73 BPM Standing Heart Rate Post-Dialysis 70 BPM Temperature Pre-Dialysis 97 degF Temperature Post -Dialysis 97.7 degF June 14, 2024 In-Center Hemodialysis Treatment [id number]:12:30.000Z [id number]:15:31.000Z BP Sitting (Pre-Dialysis) 168/80 mmHg BP Sitting (Post-Dialysis) 132/62 mmHg Concurrent Access: falseAV Fistula Forearm (Left) Arterial BP Standing (Pre-Dialysis) 153/75 mmHg Sitti ng Heart Rate Post-Dialysis 75 BPM Sitting Heart Rate Pre-Dialysis 73 BPM Temperatu re Post-Dialysis 97.8 degF Standing Heart Rate Pre-Dialysis 77 BPM Temperature Pre-Dialysis 97.8 degF June 12, 2024 In-Center Hemodialysis Treatment [id number]:56:26.000Z 2478-62-54F08:00:25.000Z BP Sitting (Pre-Dialysis) 157/60 mmHg BP Sitting (Post-Dialysis) 106/74 mmHg Concurrent Access: falseAV Fistula Forearm (Left) Arterial BP Standing (Pre-Dialysis) 159/60 mmHg Sitti ng Heart Rate Post-Dialysis 80 BPM Sitting Heart Rate Pre-Dialysis 60 BPM Temperatu re Post-Dialysis 97.6 degF Standing Heart Rate Pre-Dialysis 72 BPM Temperature Pre-Dialysis 97.6 degF June 10, 2024 In-Center Hemodialysis Treatment 7786-44-11X36:58:20.000Z 9314-12-88S23:01:19.000Z BP Sitting (Pre-Dialysis) 161/83 mmHg BP Sitting (Post-Dialysis) 145/71 mmHg Concurrent Access: falseAV Fistula Forearm (Left) Arterial BP Standing (Pre-Dialysis) 154/85 mmHg BP Standing (P ost-Dialysis) 132/67 mmHg Sitting Heart Rate Pre-Dialysis 65 BPM Sitting Heart Rate Post-Dialysis 67 BPM Standing Heart Rate Pre-Dialysis 67 BPM Standing Heart Rate Post-Dialysis 69 BPM Temperature Pre-Dialysis 97.3 degF Temperature Post -Dialysis 98.1 degF June 08, 2024 In-Center Hemodialysis Treatment [id number]:58:41.000Z 1311-91-95Z58:52:12.000Z BP Sitting (Pre-Dialysis) 152/76 mmHg BP Sitting (Post-Dialysis) 148/75 mmHg Concurrent Access: falseAV Fistula Forearm (Left) Arterial BP Standing (Pre-Dialysis) 148/76 mmHg BP Standing (P ost-Dialysis) 150/80 mmHg Sitting Heart Rate Pre-Dialysis 64 BPM Sitting Heart Rate Post-Dialysis 61 BPM Standing Heart Rate Pre-Dialysis 66 BPM Standing Heart Rate Post-Dialysis 62 BPM Temperature Pre-Dialysis 97.2 degF Temperature Post -Dialysis 98 degF June 05, 2024 In-Center Hemodialysis Treatment 9189-08-03B21:00:00.000Z 9371-13-44N79:01:06.000Z BP Sitting (Pre-Dialysis) 157/74 mmHg BP Sitting (Post-Dialysis) 153/73 mmHg Concurrent Access: falseAV Fistula Forearm (Left) Arterial BP Standing (Pre-Dialysis) 132/65 mmHg BP Standing (P ost-Dialysis) 137/66 mmHg Sitting Heart Rate Pre-Dialysis 68 BPM Sitting Heart Rate Post-Dialysis 66 BPM Standing Heart Rate Pre-Dialysis 69 BPM Standing Heart Rate Post-Dialysis 67 BPM Temperature Pre-Dialysis 97.8 degF Temperature Post -Dialysis 97.9 degF June 04, 2024 In-Center Hemodialysis Treatment [id number]:58:11.000Z 6603-80-15O62:03:12.000Z BP Sitting (Pre-Dialysis) 148/75 mmHg BP Sitting (Post-Dialysis) 127/91 mmHg Concurrent Access: falseAV Fistula Forearm (Left) Arterial BP Standing (Pre-Dialysis) 140/70 mmHg BP Standing (P ost-Dialysis) 151/71 mmHg Sitting Heart Rate Pre-Dialysis 67 BPM Sitting Heart Rate Post-Dialysis 63 BPM Standing Heart Rate Pre-Dialysis 69 BPM Standing Heart Rate Post-Dialysis 66 BPM Temperature Pre-Dialysis 98 degF Temperature Post -Dialysis 98 degF June 01, 2024 In-Center Hemodialysis Treatment [id number]:03:05.000Z [id number]:07:06.000Z BP Sitting (Pre-Dialysis) 175/80 mmHg BP Sitting (Post-Dialysis) 149/65 mmHg Concurrent Access: falseAV Fistula Forearm (Left) Arterial BP Standing (Pre-Dialysis) 172/82 mmHg BP Standing (P ost-Dialysis) 141/67 mmHg Sitting Heart Rate Pre-Dialysis 70 BPM Sitting Heart Rate Post-Dialysis 69 BPM Standing Heart Rate Pre-Dialysis 73 BPM Standing Heart Rate Post-Dialysis 72 BPM Temperature Pre-Dialysis 97.6 degF Temperature Post -Dialysis 97.6 degF May 29, 2024 In-Center Hemodialysis Treatment 6899-43-50G12:56:00.000Z [id number]:58:11.000Z BP Sitting (Pre-Dialysis) 158/81 mmHg BP Sitting (Post-Dialysis) 148/75 mmHg Concurrent Access: falseAV Fistula Forearm (Left) Arterial BP Standing (Pre-Dialysis) 163/92 mmHg BP Standing (P ost-Dialysis) 142/61 mmHg Sitting Heart Rate Pre-Dialysis 64 BPM Sitting Heart Rate Post-Dialysis 65 BPM Standing Heart Rate Pre-Dialysis 64 BPM Standing Heart Rate Post-Dialysis 65 BPM Temperature Pre-Dialysis 97.5 degF Temperature Post -Dialysis 97.3 degF May 27, 2024 In-Center Hemodialysis Treatment 7892-13-15O66:56:00.000Z 9747-48-58P05:57:06.000Z BP Sitting (Pre-Dialysis) 153/80 mmHg BP Sitting (Post-Dialysis) 132/64 mmHg Concurrent Access: falseAV Fistula Forearm (Left) Arterial BP Standing (Pre-Dialysis) 139/76 mmHg BP Standing (P ost-Dialysis) 131/63 mmHg Sitting Heart Rate Pre-Dialysis 68 BPM Sitting Heart Rate Post-Dialysis 65 BPM Standing Heart Rate Pre-Dialysis 69 BPM Standing Heart Rate Post-Dialysis 66 BPM Temperature Pre-Dialysis 97.9 degF Temperature Post -Dialysis 97.8 degF May 25, 2024 In-Center Hemodialysis Treatment 0579-43-71T85:12:05.000Z 5315-78-80M48:13:06.000Z BP Sitting (Pre-Dialysis) 165/87 mmHg BP Sitting (Post-Dialysis) 168/82 mmHg Concurrent Access: falseAV Fistula Forearm (Left) Arterial BP Standing (Pre-Dialysis) 162/83 mmHg BP Standing (P ost-Dialysis) 154/74 mmHg Sitting Heart Rate Pre-Dialysis 79 BPM Sitting Heart Rate Post-Dialysis 74 BPM Standing Heart Rate Pre-Dialysis 83 BPM Standing Heart Rate Post-Dialysis 77 BPM Temperature Pre-Dialysis 97.5 degF Temperature Post -Dialysis 97.8 degF May 22, 2024 In-Center Hemodialysis Treatment [id number]:09:05.000Z 7255-23-04A85:07:06.000Z BP Sitting (Pre-Dialysis) 182/88 mmHg BP Sitting (Post-Dialysis) 137/79 mmHg Concurrent Access: falseAV Fistula Forearm (Left) Arterial BP Standing (Pre-Dialysis) 157/82 mmHg BP Standing (P ost-Dialysis) 144/69 mmHg Sitting Heart Rate Pre-Dialysis 83 BPM Sitting Heart Rate Post-Dialysis 75 BPM Standing Heart Rate Pre-Dialysis 85 BPM Standing Heart Rate Post-Dialysis 75 BPM Temperature Pre-Dialysis 97.6 degF Temperature Post -Dialysis 97.5 degF May 20, 2024 In-Center Hemodialysis Treatment 3950-48-26F60:53:05.000Z 0856-88-31P45:53:06.000Z BP Sitting (Pre-Dialysis) 175/88 mmHg BP Sitting (Post-Dialysis) 156/79 mmHg Concurrent Access: falseAV Fistula Forearm (Left) Arterial BP Standing (Pre-Dialysis) 172/87 mmHg BP Standing (P ost-Dialysis) 145/78 mmHg Sitting Heart Rate Pre-Dialysis 76 BPM Sitting Heart Rate Post-Dialysis 80 BPM Standing Heart Rate Pre-Dialysis 76 BPM Standing Heart Rate Post-Dialysis 80 BPM Temperature Pre-Dialysis 97.9 degF Temperature Post -Dialysis 97.5 degF May 18, 2024 In-Center Hemodialysis Treatment 3370-25-30N54:58:00.000Z 2213-76-40A66:02:25.000Z BP Sitting (Pre-Dialysis) 179/87 mmHg BP Sitting (Post-Dialysis) 157/77 mmHg Concurrent Access: falseAV Fistula Forearm (Left) Arterial BP Standing (Pre-Dialysis) 178/83 mmHg BP Standing (P ost-Dialysis) 136/60 mmHg Sitting Heart Rate Pre-Dialysis 78 BPM Sitting Heart Rate Post-Dialysis 78 BPM Standing Heart Rate Pre-Dialysis 79 BPM Standing Heart Rate Post-Dialysis 79 BPM Temperature Pre-Dialysis 97.2 degF Temperature Post -Dialysis 98 degF May 15, 2024 In-Center Hemodialysis Treatment [id number]:58:05.000Z 6683-25-18A15:02:06.000Z BP Sitting (Pre-Dialysis) 189/93 mmHg BP Sitting (Post-Dialysis) 105/66 mmHg Concurrent Access: falseAV Fistula Forearm (Left) Arterial BP Standing (Pre-Dialysis) 158/80 mmHg BP Standing (P ost-Dialysis) 130/70 mmHg Sitting Heart Rate Pre-Dialysis 64 BPM Sitting Heart Rate Post-Dialysis 84 BPM Standing Heart Rate Pre-Dialysis 71 BPM Standing Heart Rate Post-Dialysis 67 BPM Temperature Pre-Dialysis 97.8 degF Temperature Post -Dialysis 98.1 degF May 13, 2024 In-Center Hemodialysis Treatment 8557-39-19R01:01:05.000Z 8547-17-97W74:04:06.000Z BP Sitting (Pre-Dialysis) 169/93 mmHg BP Sitting (Post-Dialysis) 140/68 mmHg Concurrent Access: falseAV Fistula Forearm (Left) Arterial BP Standing (Pre-Dialysis) 173/89 mmHg BP Standing (P ost-Dialysis) 138/53 mmHg Sitting Heart Rate Pre-Dialysis 75 BPM Sitting Heart Rate Post-Dialysis 69 BPM Standing Heart Rate Pre-Dialysis 74 BPM Standing Heart Rate Post-Dialysis 71 BPM Temperature Pre-Dialysis 97.6 degF Temperature Post -Dialysis 97.8 degF May 12, 2024 Additional Day Of Dialysis Treatment 4835-79-26S68:31:25.000Z 4029-98-28S56:33:25.000Z BP Sitting (Pre-Dialysis) 164/86 mmHg BP Sitting (Post-Dialysis) 134/69 mmHg Concurrent Access: falseAV Fistula Forearm (Left) Arterial BP Standing (Pre-Dialysis) 158/79 mmHg BP Standing (P ost-Dialysis) 112/57 mmHg Sitting Heart Rate Pre-Dialysis 72 BPM Sitting Heart Rate Post-Dialysis 74 BPM Standing Heart Rate Pre-Dialysis 73 BPM Standing Heart Rate Post-Dialysis 76 BPM Temperature Pre-Dialysis 97.8 degF Temperature Post -Dialysis 97.8 degF May 11, 2024 In-Center Hemodialysis Treatment 6957-07-90N62:42:13.000Z [id number]:39:08.000Z BP Sitting (Pre-Dialysis) 166/86 mmHg BP Sitting (Post-Dialysis) 150/77 mmHg Concurrent Access: falseAV Fistula Forearm (Left) Arterial Sitting Heart Rate Pre-Dialysis 75 BPM Sitting H eart Rate Post-Dialysis 67 BPM Temperature Pre-Dialysis 97.5 degF Temperature Post -Dialysis 97.5 degF May 08, 2024 In-Center Hemodialysis Treatment 4297-67-86V83:01:05.000Z 0749-07-65E69:03:06.000Z BP Sitting (Pre-Dialysis) 175/85 mmHg BP Sitting (Post-Dialysis) 132/68 mmHg Concurrent Access: falseAV Fistula Forearm (Left) Arterial BP Standing (Pre-Dialysis) 162/82 mmHg BP Standing (P ost-Dialysis) 128/62 mmHg Sitting Heart Rate Pre-Dialysis 68 BPM Sitting Heart Rate Post-Dialysis 67 BPM Standing Heart Rate Pre-Dialysis 69 BPM Standing Heart Rate Post-Dialysis 68 BPM Temperature Pre-Dialysis 97.5 degF Temperature Post -Dialysis 98 degF May 07, 2024 In-Center Hemodialysis Treatment 6733-05-62Y26:57:08.000Z 4904-88-14Q79:01:08.000Z BP Sitting (Pre-Dialysis) 141/90 mmHg BP Sitting (Post-Dialysis) 157/79 mmHg Concurrent Access: falseAV Fistula Forearm (Left) Arterial BP Standing (Pre-Dialysis) 154/72 mmHg BP Standing (P ost-Dialysis) 150/68 mmHg Sitting Heart Rate Pre-Dialysis 72 BPM Sitting Heart Rate Post-Dialysis 68 BPM Standing Heart Rate Pre-Dialysis 70 BPM Standing Heart Rate Post-Dialysis 69 BPM Temperature Pre-Dialysis 97.8 degF Temperature Post -Dialysis 98 degF May 04, 2024 In-Center Hemodialysis Treatment [id number]:55:00.000Z 1025-38-04A45:56:07.000Z BP Sitting (Pre-Dialysis) 156/78 mmHg BP Sitting (Post-Dialysis) 142/82 mmHg Concurrent Access: falseAV Fistula Forearm (Left) Arterial BP Standing (Pre-Dialysis) 155/78 mmHg BP Standing (P ost-Dialysis) 135/66 mmHg Sitting Heart Rate Pre-Dialysis 67 BPM Sitting Heart Rate Post-Dialysis 67 BPM Standing Heart Rate Pre-Dialysis 68 BPM Standing Heart Rate Post-Dialysis 69 BPM Temperature Pre-Dialysis 97.7 degF Temperature Post -Dialysis 97.9 degF May 01, 2024 In-Center Hemodialysis Treatment 8759-30-32H20:59:07.000Z [id number]:00:06.000Z BP Sitting (Pre-Dialysis) 162/80 mmHg BP Sitting (Post-Dialysis) 118/61 mmHg Concurrent Access: falseAV Fistula Forearm (Left) Arterial BP Standing (Pre-Dialysis) 157/81 mmHg BP Standing (P ost-Dialysis) 136/65 mmHg Sitting Heart Rate Pre-Dialysis 64 BPM Sitting Heart Rate Post-Dialysis 59 BPM Standing Heart Rate Pre-Dialysis 65 BPM Standing Heart Rate Post-Dialysis 62 BPM Temperature Pre-Dialysis 97.4 degF Temperature Post -Dialysis 97.8 degF April 29, 2024 In-Center Hemodialysis Treatment 8448-30-60L28:54:00.000Z 4107-30-24C57:57:06.000Z BP Sitting (Pre-Dialysis) 156/77 mmHg BP Sitting (Post-Dialysis) 142/49 mmHg Concurrent Access: falseAV Fistula Forearm (Left) Arterial BP Standing (Pre-Dialysis) 148/66 mmHg BP Standing (P ost-Dialysis) 153/67 mmHg Sitting Heart Rate Pre-Dialysis 60 BPM Sitting Heart Rate Post-Dialysis 57 BPM Standing Heart Rate Pre-Dialysis 59 BPM Standing Heart Rate Post-Dialysis 60 BPM Temperature Pre-Dialysis 97.3 degF Temperature Post -Dialysis 98.2 degF April 27, 2024 In-Center Hemodialysis Treatment [id number]:59:05.000Z 7286-34-88R40:46:06.000Z BP Sitting (Pre-Dialysis) 159/77 mmHg BP Sitting (Post-Dialysis) 147/70 mmHg Concurrent Access: falseAV Fistula Forearm (Left) Arterial BP Standing (Pre-Dialysis) 154/80 mmHg BP Standing (P ost-Dialysis) 142/68 mmHg Sitting Heart Rate Pre-Dialysis 60 BPM Sitting Heart Rate Post-Dialysis 64 BPM Standing Heart Rate Pre-Dialysis 62 BPM Standing Heart Rate Post-Dialysis 65 BPM Temperature Pre-Dialysis 97.8 degF Temperature Post -Dialysis 97.3 degF April 24, 2024 In-Center Hemodialysis Treatment [id number]:56:00.000Z 8635-05-86B52:56:06.000Z BP Sitting (Pre-Dialysis) 163/89 mmHg BP Sitting (Post-Dialysis) 148/72 mmHg Concurrent Access: falseAV Fistula Forearm (Left) Arterial BP Standing (Pre-Dialysis) 161/75 mmHg BP Standing (P ost-Dialysis) 138/68 mmHg Sitting Heart Rate Pre-Dialysis 68 BPM Sitting Heart Rate Post-Dialysis 61 BPM Standing Heart Rate Pre-Dialysis 68 BPM Standing Heart Rate Post-Dialysis 65 BPM Temperature Pre-Dialysis 97.8 degF Temperature Post -Dialysis 97.9 degF April 22, 2024 In-Center Hemodialysis Treatment 1584-93-57G60:00:11.000Z 5230-11-22C60:02:11.000Z BP Sitting (Pre-Dialysis) 168/92 mmHg BP Sitting (Post-Dialysis) 149/69 mmHg Concurrent Access: falseAV Fistula Forearm (Left) Arterial BP Standing (Pre-Dialysis) 166/79 mmHg Sitti ng Heart Rate Post-Dialysis 64 BPM Sitting Heart Rate Pre-Dialysis 65 BPM Temperatu re Post-Dialysis 98.2 degF Standing Heart Rate Pre-Dialysis 61 BPM Temperature Pre-Dialysis 98 degF April 20, 2024 In-Center Hemodialysis Treatment 9576-17-30C85:01:00.000Z 4643-83-47F85:05:11.000Z BP Sitting (Pre-Dialysis) 157/82 mmHg BP Sitting (Post-Dialysis) 151/77 mmHg Concurrent Access: falseAV Fistula Forearm (Left) Arterial BP Standing (Pre-Dialysis) 144/88 mmHg BP Standing (P ost-Dialysis) 156/67 mmHg Sitting Heart Rate Pre-Dialysis 61 BPM Sitting Heart Rate Post-Dialysis 61 BPM Standing Heart Rate Pre-Dialysis 62 BPM Standing Heart Rate Post-Dialysis 63 BPM Temperature Pre-Dialysis 97.1 degF Temperature Post -Dialysis 97.3 degF April 17, 2024 In-Center Hemodialysis Treatment 6583-67-54Y40:01:10.000Z [id number]:07:11.000Z BP Sitting (Pre-Dialysis) 163/141 mmHg BP Sitting (Post-Dialysis) 145/68 mmHg Concurrent Access: falseAV Fistula Forearm (Left) Arterial BP Standing (Pre-Dialysis) 150/75 mmHg BP Standing (P ost-Dialysis) 137/66 mmHg Sitting Heart Rate Pre-Dialysis 64 BPM Sitting Heart Rate Post-Dialysis 63 BPM Standing Heart Rate Pre-Dialysis 67 BPM Standing Heart Rate Post-Dialysis 66 BPM Temperature Pre-Dialysis 97.8 degF Temperature Post -Dialysis 97.8 degF April 15, 2024 In-Center Hemodialysis Treatment [id number]:58:00.000Z 4892-34-88M53:01:06.000Z BP Sitting (Pre-Dialysis) 168/121 mmHg BP Sitting (Post-Dialysis) 151/75 mmHg Concurrent Access: falseAV Fistula Forearm (Left) Arterial BP Standing (Pre-Dialysis) 156/78 mmHg BP Standing (P ost-Dialysis) 135/68 mmHg Sitting Heart Rate Pre-Dialysis 63 BPM Sitting Heart Rate Post-Dialysis 56 BPM Standing Heart Rate Pre-Dialysis 66 BPM Standing Heart Rate Post-Dialysis 63 BPM Temperature Pre-Dialysis 98.2 degF Temperature Post -Dialysis 97.4 degF April 13, 2024 In-Center Hemodialysis Treatment [id number]:55:00.000Z 9393-54-36D35:59:06.000Z BP Sitting (Pre-Dialysis) 153/91 mmHg BP Sitting (Post-Dialysis) 149/74 mmHg Concurrent Access: falseAV Fistula Forearm (Left) Arterial BP Standing (Pre-Dialysis) 133/92 mmHg BP Standing (P ost-Dialysis) 153/71 mmHg Sitting Heart Rate Pre-Dialysis 71 BPM Sitting Heart Rate Post-Dialysis 55 BPM Standing Heart Rate Pre-Dialysis 54 BPM Standing Heart Rate Post-Dialysis 56 BPM Temperature Pre-Dialysis 97.2 degF Temperature Post -Dialysis 97.4 degF April 10, 2024 In-Center Hemodialysis Treatment 1589-80-00Z98:50:00.000Z 5210-75-51G42:59:05.000Z BP Sitting (Pre-Dialysis) 180/88 mmHg BP Sitting (Post-Dialysis) 141/88 mmHg Concurrent Access: falseAV Fistula Forearm (Left) Arterial BP Standing (Pre-Dialysis) 160/85 mmHg BP Standing (P ost-Dialysis) 156/71 mmHg Sitting Heart Rate Pre-Dialysis 63 BPM Sitting Heart Rate Post-Dialysis 65 BPM Standing Heart Rate Pre-Dialysis 63 BPM Standing Heart Rate Post-Dialysis 62 BPM Temperature Pre-Dialysis 98.1 degF Temperature Post -Dialysis 97.6 degF April 08, 2024 In-Center Hemodialysis Treatment 2738-94-43R72:55:05.000Z [id number]:58:06.000Z BP Sitting (Pre-Dialysis) 156/91 mmHg BP Sitting (Post-Dialysis) 160/79 mmHg Concurrent Access: falseAV Fistula Forearm (Left) Arterial BP Standing (Pre-Dialysis) 150/82 mmHg BP Standing (P ost-Dialysis) 156/72 mmHg Sitting Heart Rate Pre-Dialysis 61 BPM Sitting Heart Rate Post-Dialysis 57 BPM Standing Heart Rate Pre-Dialysis 61 BPM Standing Heart Rate Post-Dialysis 60 BPM Temperature Pre-Dialysis 97.5 degF Temperature Post -Dialysis 97.5 degF April 06, 2024 In-Center Hemodialysis Treatment [id number]:05:05.000Z 3643-77-13O65:09:06.000Z BP Sitting (Pre-Dialysis) 160/83 mmHg BP Sitting (Post-Dialysis) 166/70 mmHg Concurrent Access: falseAV Fistula Forearm (Left) Arterial BP Standing (Pre-Dialysis) 163/80 mmHg BP Standing (P ost-Dialysis) 159/124 mmHg Sitting Heart Rate Pre-Dialysis 60 BPM Sitting Heart Rate Post-Dialysis 56 BPM Standing Heart Rate Pre-Dialysis 60 BPM Standing Heart Rate Post-Dialysis 57 BPM Temperature Pre-Dialysis 97.8 degF Temperature Post -Dialysis 98.2 degF April 03, 2024 In-Center Hemodialysis Treatment 8488-34-21A94:05:05.000Z 1212-91-75B97:07:06.000Z BP Sitting (Pre-Dialysis) 165/79 mmHg BP Sitting (Post-Dialysis) 153/72 mmHg Concurrent Access: falseAV Fistula Forearm (Left) Arterial BP Standing (Pre-Dialysis) 159/79 mmHg Sitti ng Heart Rate Post-Dialysis 59 BPM Sitting Heart Rate Pre-Dialysis 65 BPM Temperatu re Post-Dialysis 97.2 degF Standing Heart Rate Pre-Dialysis 66 BPM Temperature Pre-Dialysis 97.6 degF April 01, 2024 In-Center Hemodialysis Treatment 6591-20-14T70:13:06.000Z 9049-18-32H77:03:07.000Z BP Sitting (Pre-Dialysis) 155/73 mmHg BP Sitting (Post-Dialysis) 156/75 mmHg Concurrent Access: falseAV Fistula Forearm (Left) Arterial BP Standing (Pre-Dialysis) 153/73 mmHg BP Standing (P ost-Dialysis) 157/71 mmHg Sitting Heart Rate Pre-Dialysis 62 BPM Sitting Heart Rate Post-Dialysis 60 BPM Standing Heart Rate Pre-Dialysis 66 BPM Standing Heart Rate Post-Dialysis 62 BPM Temperature Pre-Dialysis 97.5 degF Temperature Post -Dialysis 97.6 degF March 30, 2024 In-Center Hemodialysis Treatment 3430-08-50M80:57:00.000Z 2521-37-90Z79:02:06.000Z BP Sitting (Pre-Dialysis) 165/79 mmHg BP Sitting (Post-Dialysis) 124/63 mmHg Concurrent Access: falseAV Fistula Forearm (Left) Arterial BP Standing (Pre-Dialysis) 153/83 mmHg BP Standing (P ost-Dialysis) 164/71 mmHg Sitting Heart Rate Pre-Dialysis 59 BPM Sitting Heart Rate Post-Dialysis 60 BPM Standing Heart Rate Pre-Dialysis 61 BPM Standing Heart Rate Post-Dialysis 62 BPM Temperature Pre-Dialysis 97.3 degF Temperature Post -Dialysis 97.5 degF March 27, 2024 In-Center Hemodialysis Treatment [id number]:57:00.000Z 0961-20-51F92:00:17.000Z BP Sitting (Pre-Dialysis) 158/78 mmHg BP Sitting (Post-Dialysis) 158/78 mmHg Concurrent Access: falseAV Fistula Forearm (Left) Arterial BP Standing (Pre-Dialysis) 153/79 mmHg BP Standing (P ost-Dialysis) 165/70 mmHg Sitting Heart Rate Pre-Dialysis 61 BPM Sitting Heart Rate Post-Dialysis 58 BPM Standing Heart Rate Pre-Dialysis 62 BPM Standing Heart Rate Post-Dialysis 58 BPM Temperature Pre-Dialysis 97.9 degF Temperature Post -Dialysis 98.7 degF March 25, 2024 In-Center Hemodialysis Treatment 2730-19-33L53:59:00.000Z 6136-55-36N21:02:17.000Z BP Sitting (Pre-Dialysis) 167/82 mmHg BP Sitting (Post-Dialysis) 164/75 mmHg Concurrent Access: falseAV Fistula Forearm (Left) Arterial BP Standing (Pre-Dialysis) 165/81 mmHg BP Standing (P ost-Dialysis) 171/75 mmHg Sitting Heart Rate Pre-Dialysis 63 BPM Sitting Heart Rate Post-Dialysis 60 BPM Standing Heart Rate Pre-Dialysis 64 BPM Standing Heart Rate Post-Dialysis 63 BPM Temperature Pre-Dialysis 97.7 degF Temperature Post -Dialysis 97.7 degF March 23, 2024 In-Center Hemodialysis Treatment [id number]:55:00.000Z [id number]:59:17.000Z BP Sitting (Pre-Dialysis) 155/84 mmHg BP Sitting (Post-Dialysis) 171/77 mmHg Concurrent Access: falseAV Fistula Forearm (Left) Arterial BP Standing (Pre-Dialysis) 164/81 mmHg BP Standing (P ost-Dialysis) 173/74 mmHg Sitting Heart Rate Pre-Dialysis 64 BPM Sitting Heart Rate Post-Dialysis 61 BPM Standing Heart Rate Pre-Dialysis 63 BPM Standing Heart Rate Post-Dialysis 63 BPM Temperature Pre-Dialysis 97.9 degF Temperature Post -Dialysis 97.8 degF March 20, 2024 In-Center Hemodialysis Treatment [id number]:56:35.000Z 0616-79-62K90:00:36.000Z BP Sitting (Pre-Dialysis) 153/75 mmHg BP Sitting (Post-Dialysis) 150/67 mmHg Concurrent Access: falseAV Fistula Forearm (Left) Arterial BP Standing (Pre-Dialysis) 159/73 mmHg BP Standing (P ost-Dialysis) 158/73 mmHg Sitting Heart Rate Pre-Dialysis 62 BPM Sitting Heart Rate Post-Dialysis 59 BPM Standing Heart Rate Pre-Dialysis 63 BPM Standing Heart Rate Post-Dialysis 63 BPM Temperature Pre-Dialysis 97.4 degF Temperature Post -Dialysis 97.8 degF March 18, 2024 In-Center Hemodialysis Treatment [id number]:01:35.000Z 3882-77-79G31:02:36.000Z BP Sitting (Pre-Dialysis) 158/78 mmHg BP Sitting (Post-Dialysis) 159/73 mmHg Concurrent Access: falseAV Fistula Forearm (Left) Arterial BP Standing (Pre-Dialysis) 159/75 mmHg BP Standing (P ost-Dialysis) 158/70 mmHg Sitting Heart Rate Pre-Dialysis 64 BPM Sitting Heart Rate Post-Dialysis 60 BPM Standing Heart Rate Pre-Dialysis 65 BPM Standing Heart Rate Post-Dialysis 59 BPM Temperature Pre-Dialysis 97.6 degF Temperature Post -Dialysis 97.2 degF March 16, 2024 In-Center Hemodialysis Treatment [id number]:02:35.000Z 9194-12-86U13:11:00.000Z BP Sitting (Pre-Dialysis) 153/80 mmHg BP Sitting (Post-Dialysis) 151/67 mmHg Concurrent Access: falseAV Fistula Forearm (Left) Arterial BP Standing (Pre-Dialysis) 153/74 mmHg BP Standing (P ost-Dialysis) 156/65 mmHg Sitting Heart Rate Pre-Dialysis 62 BPM Sitting Heart Rate Post-Dialysis 63 BPM Standing Heart Rate Pre-Dialysis 61 BPM Standing Heart Rate Post-Dialysis 64 BPM Temperature Pre-Dialysis 97.8 degF Temperature Post -Dialysis 97.8 degF March 14, 2024 In-Center Hemodialysis Treatment [id number]:10:13.000Z 2047-56-29O74:12:14.000Z BP Sitting (Pre-Dialysis) 154/78 mmHg BP Sitting (Post-Dialysis) 155/75 mmHg Concurrent Access: falseAV Fistula Forearm (Left) Arterial BP Standing (Pre-Dialysis) 158/78 mmHg BP Standing (P ost-Dialysis) 152/68 mmHg Sitting Heart Rate Pre-Dialysis 61 BPM Sitting Heart Rate Post-Dialysis 60 BPM Standing Heart Rate Pre-Dialysis 63 BPM Standing Heart Rate Post-Dialysis 60 BPM Temperature Pre-Dialysis 97.3 degF Temperature Post -Dialysis 97.5 degF March 11, 2024 In-Center Hemodialysis Treatment 9572-12-09E84:53:00.000Z [id number]:57:24.000Z BP Sitting (Pre-Dialysis) 158/89 mmHg BP Sitting (Post-Dialysis) 160/67 mmHg Concurrent Access: falseAV Fistula Forearm (Left) Arterial BP Standing (Pre-Dialysis) 153/75 mmHg BP Standing (P ost-Dialysis) 155/68 mmHg Sitting Heart Rate Pre-Dialysis 62 BPM Sitting Heart Rate Post-Dialysis 60 BPM Standing Heart Rate Pre-Dialysis 63 BPM Standing Heart Rate Post-Dialysis 61 BPM Temperature Pre-Dialysis 97.7 degF Temperature Post -Dialysis 98.4 degF March 09, 2024 In-Center Hemodialysis Treatment 6220-46-94Y61:55:00.000Z 9726-69-27Q86:00:24.000Z BP Sitting (Pre-Dialysis) 146/76 mmHg BP Sitting (Post-Dialysis) 150/70 mmHg Concurrent Access: falseAV Fistula Forearm (Left) Arterial BP Standing (Pre-Dialysis) 146/75 mmHg BP Standing (P ost-Dialysis) 151/68 mmHg Sitting Heart Rate Pre-Dialysis 60 BPM Sitting Heart Rate Post-Dialysis 58 BPM Standing Heart Rate Pre-Dialysis 60 BPM Standing Heart Rate Post-Dialysis 60 BPM Temperature Pre-Dialysis 97.3 degF Temperature Post -Dialysis 98.1 degF March 06, 2024 In-Center Hemodialysis Treatment [id number]:01:10.000Z 1766-63-13R75:03:11.000Z BP Sitting (Pre-Dialysis) 153/82 mmHg BP Sitting (Post-Dialysis) 153/74 mmHg Concurrent Access: falseAV Fistula Forearm (Left) Arterial BP Standing (Pre-Dialysis) 165/76 mmHg BP Standing (P ost-Dialysis) 153/73 mmHg Sitting Heart Rate Pre-Dialysis 64 BPM Sitting Heart Rate Post-Dialysis 61 BPM Standing Heart Rate Pre-Dialysis 62 BPM Standing Heart Rate Post-Dialysis 61 BPM Temperature Pre-Dialysis 97.3 degF Temperature Post -Dialysis 97.3 degF March 04, 2024 In-Center Hemodialysis Treatment [id number]:50:00.000Z 9813-43-03D61:02:11.000Z BP Sitting (Pre-Dialysis) 155/81 mmHg BP Sitting (Post-Dialysis) 148/72 mmHg Concurrent Access: falseAV Fistula Forearm (Left) Arterial BP Standing (Pre-Dialysis) 151/75 mmHg BP Standing (P ost-Dialysis) 156/67 mmHg Sitting Heart Rate Pre-Dialysis 62 BPM Sitting Heart Rate Post-Dialysis 60 BPM Standing Heart Rate Pre-Dialysis 64 BPM Standing Heart Rate Post-Dialysis 61 BPM Temperature Pre-Dialysis 97.2 degF Temperature Post -Dialysis 97.5 degF March 02, 2024 In-Center Hemodialysis Treatment 9694-46-05T62:57:00.000Z 1147-62-60H08:01:11.000Z BP Sitting (Pre-Dialysis) 159/76 mmHg BP Sitting (Post-Dialysis) 153/73 mmHg Concurrent Access: falseAV Fistula Forearm (Left) Arterial BP Standing (Pre-Dialysis) 151/74 mmHg BP Standing (P ost-Dialysis) 110/69 mmHg Sitting Heart Rate Pre-Dialysis 67 BPM Sitting Heart Rate Post-Dialysis 64 BPM Standing Heart Rate Pre-Dialysis 67 BPM Standing Heart Rate Post-Dialysis 65 BPM Temperature Pre-Dialysis 97.6 degF Temperature Post -Dialysis 98.6 degF February 28, 2024 In-Center Hemodialysis Treatment 8107-45-05H32:51:00.000Z 4339-79-67I57:55:08.000Z BP Sitting (Pre-Dialysis) 166/86 mmHg BP Sitting (Post-Dialysis) 161/78 mmHg Concurrent Access: falseAV Fistula Forearm (Left) Arterial BP Standing (Pre-Dialysis) 171/86 mmHg BP Standing (P ost-Dialysis) 165/77 mmHg Sitting Heart Rate Pre-Dialysis 76 BPM Sitting Heart Rate Post-Dialysis 73 BPM Standing Heart Rate Pre-Dialysis 76 BPM Standing Heart Rate Post-Dialysis 75 BPM Temperature Pre-Dialysis 97.9 degF Temperature Post -Dialysis 98.6 degF February 26, 2024 In-Center Hemodialysis Treatment [id number]:53:00.000Z 1858-12-41A29:54:38.000Z BP Sitting (Pre-Dialysis) 177/89 mmHg BP Sitting (Post-Dialysis) 159/81 mmHg Concurrent Access: falseAV Fistula Forearm (Left) Arterial BP Standing (Pre-Dialysis) 184/89 mmHg BP Standing (P ost-Dialysis) 167/77 mmHg Sitting Heart Rate Pre-Dialysis 77 BPM Sitting Heart Rate Post-Dialysis 70 BPM Standing Heart Rate Pre-Dialysis 79 BPM Standing Heart Rate Post-Dialysis 73 BPM Temperature Pre-Dialysis 97.9 degF Temperature Post -Dialysis 97.9 degF February 24, 2024 In-Center Hemodialysis Treatment 4974-03-90J60:53:00.000Z 4366-57-73Q69:13:00.000Z BP Sitting (Pre-Dialysis) 168/89 mmHg BP Sitting (Post-Dialysis) 157/79 mmHg Concurrent Access: falseAV Fistula Forearm (Left) Arterial BP Standing (Pre-Dialysis) 164/86 mmHg Sitti ng Heart Rate Post-Dialysis 70 BPM Sitting Heart Rate Pre-Dialysis 75 BPM Temperatu re Post-Dialysis 97.8 degF Standing Heart Rate Pre-Dialysis 76 BPM Temperature Pre-Dialysis 97.5 degF February 21, 2024 In-Center Hemodialysis Treatment 7985-11-40J73:55:00.000Z 9925-84-21Y18:58:15.000Z BP Sitting (Pre-Dialysis) 173/90 mmHg BP Sitting (Post-Dialysis) 165/81 mmHg Concurrent Access: falseAV Fistula Forearm (Left) Arterial BP Standing (Pre-Dialysis) 168/88 mmHg BP Standing (P ost-Dialysis) 166/77 mmHg Sitting Heart Rate Pre-Dialysis 73 BPM Sitting Heart Rate Post-Dialysis 71 BPM Standing Heart Rate Pre-Dialysis 77 BPM Standing Heart Rate Post-Dialysis 72 BPM Temperature Pre-Dialysis 97.6 degF Temperature Post -Dialysis 97.6 degF February 19, 2024 In-Center Hemodialysis Treatment 1745-40-42Y35:53:00.000Z 9409-02-20Q98:00:00.000Z BP Sitting (Pre-Dialysis) 156/80 mmHg BP Sitting (Post-Dialysis) 151/73 mmHg Concurrent Access: falseAV Fistula Forearm (Left) Arterial BP Standing (Pre-Dialysis) 158/77 mmHg BP Standing (P ost-Dialysis) 165/71 mmHg Sitting Heart Rate Pre-Dialysis 77 BPM Sitting Heart Rate Post-Dialysis 74 BPM Standing Heart Rate Pre-Dialysis 78 BPM Standing Heart Rate Post-Dialysis 72 BPM Temperature Pre-Dialysis 97.5 degF Temperature Post -Dialysis 97 degF February 17, 2024 In-Center Hemodialysis Treatment [id number]:43:00.000Z 9962-76-85Q70:54:35.000Z BP Sitting (Pre-Dialysis) 159/84 mmHg BP Sitting (Post-Dialysis) 153/73 mmHg Concurrent Access: falseAV Fistula Forearm (Left) Arterial BP Standing (Pre-Dialysis) 153/83 mmHg BP Standing (P ost-Dialysis) 153/72 mmHg Sitting Heart Rate Pre-Dialysis 76 BPM Sitting Heart Rate Post-Dialysis 69 BPM Standing Heart Rate Pre-Dialysis 76 BPM Standing Heart Rate Post-Dialysis 70 BPM Temperature Pre-Dialysis 97.4 degF February 14, 2024 In-Center Hemodialysis Treatment 0129-89-20D66:51:00.000Z 5981-38-83N40:53:33.000Z BP Sitting (Pre-Dialysis) 167/82 mmHg BP Sitting (Post-Dialysis) 147/72 mmHg Concurrent Access: falseAV Fistula Forearm (Left) Arterial BP Standing (Pre-Dialysis) 169/79 mmHg BP Standing (P ost-Dialysis) 149/71 mmHg Sitting Heart Rate Pre-Dialysis 74 BPM Sitting Heart Rate Post-Dialysis 67 BPM Standing Heart Rate Pre-Dialysis 77 BPM Standing Heart Rate Post-Dialysis 69 BPM Temperature Pre-Dialysis 97.5 degF Temperature Post -Dialysis 97.5 degF February 12, 2024 In-Center Hemodialysis Treatment 2873-24-66Q58:03:33.000Z 3759-23-38E05:07:33.000Z BP Sitting (Pre-Dialysis) 159/84 mmHg BP Sitting (Post-Dialysis) 161/73 mmHg Concurrent Access: falseAV Fistula Forearm (Left) Arterial BP Standing (Pre-Dialysis) 151/79 mmHg BP Standing (P ost-Dialysis) 164/74 mmHg Sitting Heart Rate Pre-Dialysis 73 BPM Sitting Heart Rate Post-Dialysis 67 BPM Standing Heart Rate Pre-Dialysis 76 BPM Standing Heart Rate Post-Dialysis 70 BPM Temperature Pre-Dialysis 97.5 degF Temperature Post -Dialysis 97.5 degF February 10, 2024 In-Center Hemodialysis Treatment [id number]:53:00.000Z 3714-85-34G03:56:33.000Z BP Sitting (Pre-Dialysis) 173/88 mmHg BP Sitting (Post-Dialysis) 157/77 mmHg Concurrent Access: falseAV Fistula Forearm (Left) Arterial BP Standing (Pre-Dialysis) 171/87 mmHg BP Standing (P ost-Dialysis) 158/75 mmHg Sitting Heart Rate Pre-Dialysis 75 BPM Sitting Heart Rate Post-Dialysis 70 BPM Standing Heart Rate Pre-Dialysis 77 BPM Standing Heart Rate Post-Dialysis 72 BPM Temperature Pre-Dialysis 97.6 degF Temperature Post -Dialysis 97.8 degF February 07, 2024 In-Center Hemodialysis Treatment 2068-41-14F69:00:00.000Z 4038-25-60R69:01:21.000Z BP Sitting (Pre-Dialysis) 165/81 mmHg BP Sitting (Post-Dialysis) 158/75 mmHg Concurrent Access: falseAV Fistula Forearm (Left) Arterial BP Standing (Pre-Dialysis) 167/79 mmHg BP Standing (P ost-Dialysis) 165/76 mmHg Sitting Heart Rate Pre-Dialysis 80 BPM Sitting Heart Rate Post-Dialysis 72 BPM Standing Heart Rate Pre-Dialysis 80 BPM Standing Heart Rate Post-Dialysis 73 BPM Temperature Pre-Dialysis 97.8 degF Temperature Post -Dialysis 97.9 degF February 05, 2024 In-Center Hemodialysis Treatment 5336-14-26O11:57:00.000Z 8497-55-71M49:58:20.000Z BP Sitting (Pre-Dialysis) 167/88 mmHg BP Sitting (Post-Dialysis) 161/74 mmHg Concurrent Access: falseAV Fistula Forearm (Left) Arterial BP Standing (Pre-Dialysis) 166/86 mmHg BP Standing (P ost-Dialysis) 156/74 mmHg Sitting Heart Rate Pre-Dialysis 76 BPM Sitting Heart Rate Post-Dialysis 70 BPM Standing Heart Rate Pre-Dialysis 78 BPM Standing Heart Rate Post-Dialysis 72 BPM Temperature Pre-Dialysis 98 degF Temperature Post -Dialysis 97.9 degF February 03, 2024 In-Center Hemodialysis Treatment 0926-42-71W74:54:00.000Z 1963-96-72Q84:56:20.000Z BP Sitting (Pre-Dialysis) 175/88 mmHg BP Sitting (Post-Dialysis) 161/79 mmHg Concurrent Access: falseAV Fistula Forearm (Left) Arterial BP Standing (Pre-Dialysis) 171/84 mmHg BP Standing (P ost-Dialysis) 164/78 mmHg Sitting Heart Rate Pre-Dialysis 77 BPM Sitting Heart Rate Post-Dialysis 71 BPM Standing Heart Rate Pre-Dialysis 78 BPM Standing Heart Rate Post-Dialysis 72 BPM Temperature Pre-Dialysis 98 degF Temperature Post -Dialysis 97.5 degF January 31, 2024 In-Center Hemodialysis Treatment 5675-15-07L98:51:00.000Z 1297-03-48A12:55:52.000Z BP Sitting (Pre-Dialysis) 177/85 mmHg BP Sitting (Post-Dialysis) 151/74 mmHg Concurrent Access: falseAV Fistula Forearm (Left) Arterial BP Standing (Pre-Dialysis) 173/84 mmHg BP Standing (P ost-Dialysis) 152/81 mmHg Sitting Heart Rate Pre-Dialysis 81 BPM Sitting Heart Rate Post-Dialysis 71 BPM Standing Heart Rate Pre-Dialysis 81 BPM Standing Heart Rate Post-Dialysis 74 BPM Temperature Pre-Dialysis 97.9 degF Temperature Post -Dialysis 97.5 degF January 29, 2024 In-Center Hemodialysis Treatment 6575-68-05T24:57:00.000Z 5852-52-69M86:05:52.000Z BP Sitting (Pre-Dialysis) 172/85 mmHg BP Sitting (Post-Dialysis) 158/76 mmHg Concurrent Access: falseAV Fistula Forearm (Left) Arterial BP Standing (Pre-Dialysis) 164/77 mmHg BP Standing (P ost-Dialysis) 161/75 mmHg Sitting Heart Rate Pre-Dialysis 81 BPM Sitting Heart Rate Post-Dialysis 72 BPM Standing Heart Rate Pre-Dialysis 80 BPM Standing Heart Rate Post-Dialysis 73 BPM Temperature Pre-Dialysis 97.6 degF Temperature Post -Dialysis 97.2 degF January 27, 2024 In-Center Hemodialysis Treatment 4252-09-02R87:53:00.000Z [id number]:52:52.000Z BP Sitting (Pre-Dialysis) 174/87 mmHg BP Sitting (Post-Dialysis) 173/84 mmHg Concurrent Access: falseAV Fistula Forearm (Left) Arterial BP Standing (Pre-Dialysis) 175/91 mmHg BP Standing (P ost-Dialysis) 172/80 mmHg Sitting Heart Rate Pre-Dialysis 81 BPM Sitting Heart Rate Post-Dialysis 70 BPM Standing Heart Rate Pre-Dialysis 82 BPM Standing Heart Rate Post-Dialysis 72 BPM Temperature Pre-Dialysis 97.5 degF Temperature Post -Dialysis 97.5 degF January 24, 2024 In-Center Hemodialysis Treatment [id number]:53:00.000Z 6054-02-38D74:56:08.000Z BP Sitting (Pre-Dialysis) 169/89 mmHg BP Sitting (Post-Dialysis) 153/73 mmHg Concurrent Access: falseAV Fistula Forearm (Left) Arterial BP Standing (Pre-Dialysis) 169/87 mmHg BP Standing (P ost-Dialysis) 156/74 mmHg Sitting Heart Rate Pre-Dialysis 76 BPM Sitting Heart Rate Post-Dialysis 71 BPM Standing Heart Rate Pre-Dialysis 78 BPM Standing Heart Rate Post-Dialysis 75 BPM Temperature Pre-Dialysis 97.6 degF Temperature Post -Dialysis 97.6 degF January 22, 2024 In-Center Hemodialysis Treatment 0337-54-65Z38:51:00.000Z 2416-77-36N19:57:29.000Z BP Sitting (Pre-Dialysis) 163/84 mmHg BP Sitting (Post-Dialysis) 164/77 mmHg Concurrent Access: falseAV Fistula Forearm (Left) Arterial BP Standing (Pre-Dialysis) 155/75 mmHg BP Standing (P ost-Dialysis) 163/76 mmHg Sitting Heart Rate Pre-Dialysis 77 BPM Sitting Heart Rate Post-Dialysis 72 BPM Standing Heart Rate Pre-Dialysis 77 BPM Standing Heart Rate Post-Dialysis 75 BPM Temperature Pre-Dialysis 97.5 degF Temperature Post -Dialysis 97.5 degF January 20, 2024 In-Center Hemodialysis Treatment [id number]:59:00.000Z 8377-26-27O29:01:29.000Z BP Sitting (Pre-Dialysis) 158/81 mmHg BP Sitting (Post-Dialysis) 156/75 mmHg Concurrent Access: falseAV Fistula Forearm (Left) Arterial BP Standing (Pre-Dialysis) 167/86 mmHg BP Standing (P ost-Dialysis) 160/75 mmHg Sitting Heart Rate Pre-Dialysis 74 BPM Sitting Heart Rate Post-Dialysis 68 BPM Standing Heart Rate Pre-Dialysis 73 BPM Standing Heart Rate Post-Dialysis 70 BPM Temperature Pre-Dialysis 97.6 degF Temperature Post -Dialysis 97.6 degF January 17, 2024 In-Center Hemodialysis Treatment 4399-42-31N54:52:00.000Z 5422-23-39V56:56:54.000Z BP Sitting (Pre-Dialysis) 155/82 mmHg BP Sitting (Post-Dialysis) 151/75 mmHg Concurrent Access: falseAV Fistula Forearm (Left) Arterial BP Standing (Pre-Dialysis) 166/77 mmHg BP Standing (P ost-Dialysis) 152/70 mmHg Sitting Heart Rate Pre-Dialysis 76 BPM Sitting Heart Rate Post-Dialysis 70 BPM Standing Heart Rate Pre-Dialysis 76 BPM Standing Heart Rate Post-Dialysis 72 BPM Temperature Pre-Dialysis 98 degF Temperature Post -Dialysis 97.5 degF January 15, 2024 In-Center Hemodialysis Treatment 0673-49-49U24:53:00.000Z 6929-95-62Q99:56:54.000Z BP Sitting (Pre-Dialysis) 148/78 mmHg BP Sitting (Post-Dialysis) 141/72 mmHg Concurrent Access: falseAV Fistula Forearm (Left) Arterial BP Standing (Pre-Dialysis) 151/73 mmHg BP Standing (P ost-Dialysis) 149/69 mmHg Sitting Heart Rate Pre-Dialysis 75 BPM Sitting Heart Rate Post-Dialysis 70 BPM Standing Heart Rate Pre-Dialysis 74 BPM Standing Heart Rate Post-Dialysis 72 BPM Temperature Pre-Dialysis 98 degF Temperature Post -Dialysis 97.4 degF January 13, 2024 In-Center Hemodialysis Treatment 3018-47-10L91:59:00.000Z 3183-12-65C64:01:54.000Z BP Sitting (Pre-Dialysis) 176/85 mmHg BP Sitting (Post-Dialysis) 153/76 mmHg Concurrent Access: falseAV Fistula Forearm (Left) Arterial BP Standing (Pre-Dialysis) 183/92 mmHg BP Standing (P ost-Dialysis) 163/76 mmHg Sitting Heart Rate Pre-Dialysis 71 BPM Sitting Heart Rate Post-Dialysis 69 BPM Standing Heart Rate Pre-Dialysis 73 BPM Standing Heart Rate Post-Dialysis 70 BPM Temperature Pre-Dialysis 98.2 degF Temperature Post -Dialysis 97.6 degF January 10, 2024 In-Center Hemodialysis Treatment 0759-54-01K78:00:00.000Z 7006-75-00L97:02:07.000Z BP Sitting (Pre-Dialysis) 164/85 mmHg BP Sitting (Post-Dialysis) 164/78 mmHg Concurrent Access: falseAV Fistula Forearm (Left) Arterial BP Standing (Pre-Dialysis) 166/82 mmHg BP Standing (P ost-Dialysis) 269/80 mmHg Sitting Heart Rate Pre-Dialysis 73 BPM Sitting Heart Rate Post-Dialysis 67 BPM Standing Heart Rate Pre-Dialysis 72 BPM Standing Heart Rate Post-Dialysis 65 BPM Temperature Pre-Dialysis 97.8 degF Temperature Post -Dialysis 97.8 degF January 08, 2024 In-Center Hemodialysis Treatment 8524-08-85O65:50:00.000Z 3687-59-56A45:54:07.000Z BP Sitting (Pre-Dialysis) 172/87 mmHg BP Sitting (Post-Dialysis) 166/80 mmHg Concurrent Access: falseAV Fistula Forearm (Left) Arterial BP Standing (Pre-Dialysis) 172/89 mmHg BP Standing (P ost-Dialysis) 169/78 mmHg Sitting Heart Rate Pre-Dialysis 72 BPM Sitting Heart Rate Post-Dialysis 68 BPM Standing Heart Rate Pre-Dialysis 72 BPM Standing Heart Rate Post-Dialysis 70 BPM Temperature Pre-Dialysis 97.5 degF Temperature Post -Dialysis 98 degF January 06, 2024 In-Center Hemodialysis Treatment [id number]:47:00.000Z 1078-85-88A24:49:07.000Z BP Sitting (Pre-Dialysis) 161/82 mmHg BP Sitting (Post-Dialysis) 153/79 mmHg Concurrent Access: falseAV Fistula Forearm (Left) Arterial BP Standing (Pre-Dialysis) 164/84 mmHg BP Standing (P ost-Dialysis) 163/75 mmHg Sitting Heart Rate Pre-Dialysis 74 BPM Sitting Heart Rate Post-Dialysis 72 BPM Standing Heart Rate Pre-Dialysis 73 BPM Standing Heart Rate Post-Dialysis 69 BPM Temperature Pre-Dialysis 97.6 degF Temperature Post -Dialysis 98 degF January 03, 2024 In-Center Hemodialysis Treatment [id number]:53:00.000Z 7759-21-58H56:58:44.000Z BP Sitting (Pre-Dialysis) 174/85 mmHg BP Sitting (Post-Dialysis) 167/80 mmHg Concurrent Access: falseAV Fistula Forearm (Left) Arterial BP Standing (Pre-Dialysis) 173/88 mmHg BP Standing (P ost-Dialysis) 180/81 mmHg Sitting Heart Rate Pre-Dialysis 72 BPM Sitting Heart Rate Post-Dialysis 70 BPM Standing Heart Rate Pre-Dialysis 73 BPM Standing Heart Rate Post-Dialysis 70 BPM Temperature Pre-Dialysis 97.5 degF Temperature Post -Dialysis 97.5 degF January 01, 2024 In-Center Hemodialysis Treatment 8700-27-33J52:53:00.000Z 0029-60-80Y77:57:44.000Z BP Sitting (Pre-Dialysis) 169/89 mmHg BP Sitting (Post-Dialysis) 174/96 mmHg Concurrent Access: falseAV Fistula Forearm (Left) Arterial BP Standing (Pre-Dialysis) 175/83 mmHg BP Standing (P ost-Dialysis) 171/80 mmHg Sitting Heart Rate Pre-Dialysis 75 BPM Sitting Heart Rate Post-Dialysis 72 BPM Standing Heart Rate Pre-Dialysis 76 BPM Standing Heart Rate Post-Dialysis 72 BPM Temperature Pre-Dialysis 97.4 degF Temperature Post -Dialysis 97.4 degF December 30, 2023 In-Center Hemodialysis Treatment 3257-27-77L32:02:00.000Z [id number]:04:44.000Z BP Sitting (Pre-Dialysis) 167/85 mmHg BP Sitting (Post-Dialysis) 155/76 mmHg Concurrent Access: falseAV Fistula Forearm (Left) Arterial BP Standing (Pre-Dialysis) 165/84 mmHg BP Standing (P ost-Dialysis) 161/79 mmHg Sitting Heart Rate Pre-Dialysis 76 BPM Sitting Heart Rate Post-Dialysis 71 BPM Standing Heart Rate Pre-Dialysis 77 BPM Standing Heart Rate Post-Dialysis 74 BPM Temperature Pre-Dialysis 97.5 degF Temperature Post -Dialysis 97.3 degF December 27, 2023 In-Center Hemodialysis Treatment 4117-89-14A75:55:00.000Z 3216-48-97F72:02:07.000Z BP Sitting (Pre-Dialysis) 174/88 mmHg BP Sitting (Post-Dialysis) 166/85 mmHg Concurrent Access: falseAV Fistula Forearm (Left) Arterial BP Standing (Pre-Dialysis) 183/93 mmHg BP Standing (P ost-Dialysis) 168/83 mmHg Sitting Heart Rate Pre-Dialysis 79 BPM Sitting Heart Rate Post-Dialysis 72 BPM Standing Heart Rate Pre-Dialysis 79 BPM Standing Heart Rate Post-Dialysis 73 BPM Temperature Pre-Dialysis 97.6 degF Temperature Post -Dialysis 97.6 degF December 25, 2023 In-Center Hemodialysis Treatment [id number]:53:00.000Z 3353-09-37J13:59:07.000Z BP Sitting (Pre-Dialysis) 184/92 mmHg BP Sitting (Post-Dialysis) 166/81 mmHg Concurrent Access: falseAV Fistula Forearm (Left) Arterial BP Standing (Pre-Dialysis) 173/88 mmHg BP Standing (P ost-Dialysis) 164/88 mmHg Sitting Heart Rate Pre-Dialysis 75 BPM Sitting Heart Rate Post-Dialysis 68 BPM Standing Heart Rate Pre-Dialysis 76 BPM Standing Heart Rate Post-Dialysis 66 BPM Temperature Pre-Dialysis 97.5 degF Temperature Post -Dialysis 97.5 degF December 23, 2023 In-Center Hemodialysis Treatment [id number]:55:00.000Z 8053-29-86A03:51:07.000Z BP Sitting (Pre-Dialysis) 167/96 mmHg BP Sitting (Post-Dialysis) 164/85 mmHg Concurrent Access: falseAV Fistula Forearm (Left) Arterial BP Standing (Pre-Dialysis) 165/86 mmHg BP Standing (P ost-Dialysis) 158/77 mmHg Sitting Heart Rate Pre-Dialysis 72 BPM Sitting Heart Rate Post-Dialysis 67 BPM Standing Heart Rate Pre-Dialysis 72 BPM Standing Heart Rate Post-Dialysis 67 BPM Temperature Pre-Dialysis 97.2 degF Temperature Post -Dialysis 97.8 degF December 20, 2023 In-Center Hemodialysis Treatment [id number]:52:00.000Z 8724-19-68N51:54:16.000Z BP Sitting (Pre-Dialysis) 171/87 mmHg BP Sitting (Post-Dialysis) 174/81 mmHg Concurrent Access: falseAV Fistula Forearm (Left) Arterial BP Standing (Pre-Dialysis) 173/86 mmHg BP Standing (P ost-Dialysis) 175/82 mmHg Sitting Heart Rate Pre-Dialysis 75 BPM Sitting Heart Rate Post-Dialysis 66 BPM Standing Heart Rate Pre-Dialysis 75 BPM Standing Heart Rate Post-Dialysis 66 BPM Temperature Pre-Dialysis 97 degF Temperature Post -Dialysis 98.3 degF December 18, 2023 In-Center Hemodialysis Treatment [id number]:56:00.000Z 1784-87-13H98:58:16.000Z BP Sitting (Pre-Dialysis) 169/91 mmHg BP Sitting (Post-Dialysis) 176/84 mmHg Concurrent Access: falseAV Fistula Forearm (Left) Arterial BP Standing (Pre-Dialysis) 178/97 mmHg Sitting Heart Rate Post-Dialysis 68 BPM Sitting Heart Rate Pre-Dialysis 73 BPM Temperatu re Post-Dialysis 98 degF Standing Heart Rate Pre-Dialysis 74 BPM Temperature Pre-Dialysis 98 degF December 17, 2023 In-Center Hemodialysis Treatment [id number]:35:00.000Z 5055-47-72V52:34:45.000Z BP Sitting (Pre-Dialysis) 172/88 mmHg BP Sitting (Post-Dialysis) 168/84 mmHg Concurrent Access: falseAV Fistula Forearm (Left) Arterial BP Standing (Pre-Dialysis) 157/82 mmHg BP Standing (P ost-Dialysis) 159/81 mmHg Sitting Heart Rate Pre-Dialysis 75 BPM Sitting Heart Rate Post-Dialysis 72 BPM Standing Heart Rate Pre-Dialysis 76 BPM Standing Heart Rate Post-Dialysis 73 BPM Temperature Pre-Dialysis 98.1 degF Temperature Post -Dialysis 97.6 degF December 16, 2023 In-Center Hemodialysis Treatment 450 mL/min 500 mL/min Concurrent Access: false December 13, 2023 In-Center Hemodialysis Treatment 20 24 -0 5- 24 T1 0: 54 :0 0. 00 0Z 20 24 -0 5- 24 T1 5: 00 :1 1. 00 0Z BP Sitting (Pre-Dial ysis) 166/90 mmHg BP Sitting (Post-Sandra lysis) 158/79 mmHg Concurrent Access: falseAV Fistula Forearm (Left) Arterial BP Standing (Pre-Dialysis) 172/90 mmHg BP Standing (P ost-Dialysis) 153/73 mmHg Sitting Heart Rate Pre-Dialysis 74 BPM Sitting Heart Rate Post-Dialysis 71 BPM Standing Heart Rate Pre-Dialysis 76 BPM Standing Heart Rate Post-Dialysis 72 BPM Temperature Pre-Dialysis 97.8 degF Temperature Post -Dialysis 97.8 degF December 11, 2023 In-Center Hemodialysis Treatment [id number]:53:00.000Z [id number]:57:21.000Z BP Sitting (Pre-Dialysis) 173/88 mmHg BP Sitting (Post-Dialysis) 169/77 mmHg Concurrent Access: falseAV Fistula Forearm (Left) Arterial BP Standing (Pre-Dialysis) 172/82 mmHg BP Standing (P ost-Dialysis) 169/74 mmHg Sitting Heart Rate Pre-Dialysis 76 BPM Sitting Heart Rate Post-Dialysis 70 BPM Standing Heart Rate Pre-Dialysis 76 BPM Standing Heart Rate Post-Dialysis 71 BPM Temperature Pre-Dialysis 97.5 degF Temperature Post -Dialysis 97.6 degF December 09, 2023 In-Center Hemodialysis Treatment [id number]:56:00.000Z [id number]:02:09.000Z BP Sitting (Pre-Dialysis) 161/84 mmHg BP Sitting (Post-Dialysis) 168/79 mmHg Concurrent Access: falseAV Fistula Forearm (Left) Arterial BP Standing (Pre-Dialysis) 177/93 mmHg BP Standing (P ost-Dialysis) 168/74 mmHg Sitting Heart Rate Pre-Dialysis 72 BPM Sitting Heart Rate Post-Dialysis 68 BPM Standing Heart Rate Pre-Dialysis 73 BPM Standing Heart Rate Post-Dialysis 71 BPM Temperature Pre-Dialysis 97.3 degF Temperature Post -Dialysis 97.6 degF December 06, 2023 In-Center Hemodialysis Treatment [id number]:55:00.000Z [id number]:59:09.000Z BP Sitting (Pre-Dialysis) 180/94 mmHg BP Sitting (Post-Dialysis) 175/84 mmHg Concurrent Access: falseAV Fistula Forearm (Left) Arterial BP Standing (Pre-Dialysis) 176/90 mmHg BP Standing (P ost-Dialysis) 178/81 mmHg Sitting Heart Rate Pre-Dialysis 78 BPM Sitting Heart Rate Post-Dialysis 70 BPM Standing Heart Rate Pre-Dialysis 79 BPM Standing Heart Rate Post-Dialysis 71 BPM Temperature Pre-Dialysis 97.5 degF Temperature Post -Dialysis 97.5 degF December 04, 2023 In-Center Hemodialysis Treatment [id number]:56:53.000Z [id number]:58:54.000Z BP Sitting (Pre-Dialysis) 177/90 mmHg BP Sitting (Post-Dialysis) 172/84 mmHg Concurrent Access: falseAV Fistula Forearm (Left) Arterial BP Standing (Pre-Dialysis) 178/90 mmHg BP Standing (P ost-Dialysis) 172/80 mmHg Sitting Heart Rate Pre-Dialysis 76 BPM Sitting Heart Rate Post-Dialysis 71 BPM Standing Heart Rate Pre-Dialysis 76 BPM Standing Heart Rate Post-Dialysis 72 BPM Temperature Pre-Dialysis 97.6 degF Temperature Post -Dialysis 97.6 degF December 03, 2023 Additional Day Of Dialysis Treatment [id number]:26:45.000Z 4636-60-04B56:27:45.000Z BP Sitting (Pre-Dialysis) 160/88 mmHg BP Sitting (Post-Dialysis) 154/90 mmHg Concurrent Access: falseAV Fistula Forearm (Left) Arterial BP Standing (Pre-Dialysis) 162/84 mmHg BP Standing (P ost-Dialysis) 150/92 mmHg Sitting Heart Rate Pre-Dialysis 74 BPM Sitting Heart Rate Post-Dialysis 68 BPM Standing Heart Rate Pre-Dialysis 73 BPM Standing Heart Rate Post-Dialysis 72 BPM Temperature Pre-Dialysis 97.8 degF Temperature Post -Dialysis 97 degF December 02, 2023 In-Center Hemodialysis Treatment [id number]:57:44.000Z 2033-33-37B90:58:44.000Z BP Sitting (Pre-Dialysis) 171/92 mmHg BP Sitting (Post-Dialysis) 172/79 mmHg Concurrent Access: falseAV Fistula Forearm (Left) Arterial BP Standing (Pre-Dialysis) 172/88 mmHg BP Standing (P ost-Dialysis) 172/80 mmHg Sitting Heart Rate Pre-Dialysis 73 BPM Sitting Heart Rate Post-Dialysis 69 BPM Standing Heart Rate Pre-Dialysis 76 BPM Standing Heart Rate Post-Dialysis 69 BPM Temperature Pre-Dialysis 97.6 degF Temperature Post -Dialysis 97.6 degF November 29, 2023 In-Center Hemodialysis Treatment [id number]:53:00.000Z 3606-86-25Q65:56:56.000Z BP Sitting (Pre-Dialysis) 165/88 mmHg BP Sitting (Post-Dialysis) 157/85 mmHg Concurrent Access: falseAV Fistula Forearm (Left) Arterial BP Standing (Pre-Dialysis) 166/85 mmHg BP Standing (P ost-Dialysis) 160/77 mmHg Sitting Heart Rate Pre-Dialysis 73 BPM Sitting Heart Rate Post-Dialysis 73 BPM Standing Heart Rate Pre-Dialysis 73 BPM Standing Heart Rate Post-Dialysis 74 BPM Temperature Pre-Dialysis 97.9 degF Temperature Post -Dialysis 97.9 degF November 27, 2023 In-Center Hemodialysis Treatment [id number]:55:00.000Z 6251-99-81F12:02:55.000Z BP Sitting (Pre-Dialysis) 163/94 mmHg BP Sitting (Post-Dialysis) 150/78 mmHg Concurrent Access: falseAV Fistula Forearm (Left) Arterial BP Standing (Pre-Dialysis) 163/80 mmHg Sitti ng Heart Rate Post-Dialysis 78 BPM Sitting Heart Rate Pre-Dialysis 77 BPM Temperatu re Post-Dialysis 97.8 degF Standing Heart Rate Pre-Dialysis 78 BPM Temperature Pre-Dialysis 97.6 degF November 25, 2023 In-Center Hemodialysis Treatment 4508-10-12V51:52:00.000Z 1081-75-51A90:57:56.000Z BP Sitting (Pre-Dialysis) 178/90 mmHg BP Sitting (Post-Dialysis) 176/81 mmHg Concurrent Access: falseAV Fistula Forearm (Left) Arterial BP Standing (Pre-Dialysis) 172/91 mmHg BP Standing (P ost-Dialysis) 181/80 mmHg Sitting Heart Rate Pre-Dialysis 80 BPM Sitting Heart Rate Post-Dialysis 72 BPM Standing Heart Rate Pre-Dialysis 81 BPM Standing Heart Rate Post-Dialysis 73 BPM Temperature Pre-Dialysis 97.5 degF Temperature Post -Dialysis 97.6 degF November 22, 2023 In-Center Hemodialysis Treatment [id number]:51:00.000Z [id number]:59:37.000Z BP Sitting (Pre-Dialysis) 183/99 mmHg BP Sitting (Post-Dialysis) 172/86 mmHg Concurrent Access: falseAV Fistula Forearm (Left) Arterial BP Standing (Pre-Dialysis) 182/94 mmHg BP Standing (P ost-Dialysis) 175/81 mmHg Sitting Heart Rate Pre-Dialysis 76 BPM Sitting Heart Rate Post-Dialysis 70 BPM Standing Heart Rate Pre-Dialysis 74 BPM Standing Heart Rate Post-Dialysis 71 BPM Temperature Pre-Dialysis 97.6 degF Temperature Post -Dialysis 97.6 degF November 20, 2023 In-Center Hemodialysis Treatment [id number]:57:00.000Z [id number]:05:37.000Z BP Sitting (Pre-Dialysis) 175/90 mmHg BP Sitting (Post-Dialysis) 184/90 mmHg Concurrent Access: falseAV Fistula Forearm (Left) Arterial BP Standing (Pre-Dialysis) 177/81 mmHg BP Standing (P ost-Dialysis) 184/89 mmHg Sitting Heart Rate Pre-Dialysis 79 BPM Sitting Heart Rate Post-Dialysis 68 BPM Standing Heart Rate Pre-Dialysis 79 BPM Standing Heart Rate Post-Dialysis 69 BPM Temperature Pre-Dialysis 97.5 degF Temperature Post -Dialysis 97.6 degF November 19, 2023 In-Center Hemodialysis Treatment 9045-44-51T08:40:00.000Z [id number]:11:22.000Z BP Sitting (Pre-Dialysis) 174/90 mmHg BP Sitting (Post-Dialysis) 188/102 mmHg Concurrent Access: falseAV Fistula Forearm (Left) Arterial BP Standing (Pre-Dialysis) 183/99 mmHg BP Standing (P ost-Dialysis) 192/98 mmHg Sitting Heart Rate Pre-Dialysis 80 BPM Sitting Heart Rate Post-Dialysis 74 BPM Standing Heart Rate Pre-Dialysis 79 BPM Standing Heart Rate Post-Dialysis 75 BPM Temperature Pre-Dialysis 97.5 degF November 15, 2023 In-Center Hemodialysis Treatment [id number]:55:00.000Z 6821-99-77K97:58:10.000Z BP Sitting (Pre-Dialysis) 178/95 mmHg BP Sitting (Post-Dialysis) 172/84 mmHg Concurrent Access: falseAV Fistula Forearm (Left) Arterial BP Standing (Pre-Dialysis) 171/86 mmHg BP Standing (P ost-Dialysis) 184/83 mmHg Sitting Heart Rate Pre-Dialysis 83 BPM Sitting Heart Rate Post-Dialysis 70 BPM Standing Heart Rate Pre-Dialysis 82 BPM Standing Heart Rate Post-Dialysis 71 BPM Temperature Pre-Dialysis 97.6 degF Temperature Post -Dialysis 97.6 degF November 13, 2023 In-Center Hemodialysis Treatment 1302-25-58W41:58:28.000Z 4162-65-26F27:01:28.000Z BP Sitting (Pre-Dialysis) 183/91 mmHg BP Sitting (Post-Dialysis) 184/86 mmHg Concurrent Access: falseAV Fistula Forearm (Left) Arterial BP Standing (Pre-Dialysis) 182/93 mmHg BP Standing (P ost-Dialysis) 188/90 mmHg Sitting Heart Rate Pre-Dialysis 78 BPM Sitting Heart Rate Post-Dialysis 67 BPM Standing Heart Rate Pre-Dialysis 78 BPM Standing Heart Rate Post-Dialysis 70 BPM Temperature Pre-Dialysis 97.9 degF Temperature Post -Dialysis 97.9 degF November 11, 2023 In-Center Hemodialysis Treatment [id number]:56:00.000Z 9709-14-25P22:02:10.000Z BP Sitting (Pre-Dialysis) 184/93 mmHg BP Sitting (Post-Dialysis) 172/86 mmHg Concurrent Access: falseAV Fistula Forearm (Left) Arterial BP Standing (Pre-Dialysis) 168/88 mmHg BP Standing (P ost-Dialysis) 175/84 mmHg Sitting Heart Rate Pre-Dialysis 73 BPM Sitting Heart Rate Post-Dialysis 68 BPM Standing Heart Rate Pre-Dialysis 78 BPM Standing Heart Rate Post-Dialysis 68 BPM Temperature Pre-Dialysis 97.6 degF Temperature Post -Dialysis 97.6 degF November 08, 2023 In-Center Hemodialysis Treatment 0435-88-29N17:57:28.000Z 2546-55-63I80:56:28.000Z BP Sitting (Pre-Dialysis) 180/95 mmHg BP Sitting (Post-Dialysis) 173/84 mmHg Concurrent Access: falseAV Fistula Forearm (Left) Arterial BP Standing (Pre-Dialysis) 183/89 mmHg BP Standing (P ost-Dialysis) 175/85 mmHg Sitting Heart Rate Pre-Dialysis 78 BPM Sitting Heart Rate Post-Dialysis 70 BPM Standing Heart Rate Pre-Dialysis 78 BPM Standing Heart Rate Post-Dialysis 72 BPM Temperature Pre-Dialysis 97.4 degF Temperature Post -Dialysis 97.9 degF November 06, 2023 In-Center Hemodialysis Treatment [id number]:56:00.000Z [id number]:00:27.000Z BP Sitting (Pre-Dialysis) 176/91 mmHg BP Sitting (Post-Dialysis) 169/86 mmHg Concurrent Access: falseAV Fistula Forearm (Left) Arterial BP Standing (Pre-Dialysis) 179/91 mmHg BP Standing (P ost-Dialysis) 176/85 mmHg Sitting Heart Rate Pre-Dialysis 81 BPM Sitting Heart Rate Post-Dialysis 69 BPM Standing Heart Rate Pre-Dialysis 78 BPM Standing Heart Rate Post-Dialysis 69 BPM Temperature Pre-Dialysis 97.6 degF November 04, 2023 In-Center Hemodialysis Treatment 6119-59-28L13:54:00.000Z 4321-50-84R23:56:27.000Z BP Sitting (Pre-Dialysis) 174/82 mmHg BP Sitting (Post-Dialysis) 183/83 mmHg Concurrent Access: falseAV Fistula Forearm (Left) Arterial BP Standing (Pre-Dialysis) 176/89 mmHg BP Standing (P ost-Dialysis) 180/83 mmHg Sitting Heart Rate Pre-Dialysis 77 BPM Sitting Heart Rate Post-Dialysis 70 BPM Standing Heart Rate Pre-Dialysis 78 BPM Standing Heart Rate Post-Dialysis 70 BPM Temperature Pre-Dialysis 97.6 degF Temperature Post -Dialysis 97.6 degF November 01, 2023 In-Center Hemodialysis Treatment 4080-86-94U98:53:00.000Z 1871-88-41K07:57:33.000Z BP Sitting (Pre-Dialysis) 172/93 mmHg BP Sitting (Post-Dialysis) 169/84 mmHg Concurrent Access: falseAV Fistula Forearm (Left) Arterial BP Standing (Pre-Dialysis) 171/87 mmHg Sitting Heart Rate Post-Dialysis 72 BPM Sitting Heart Rate Pre-Dialysis 79 BPM Temperatu re Post-Dialysis 97 degF Standing Heart Rate Pre-Dialysis 78 BPM Temperature Pre-Dialysis 97.4 degF October 30, 2023 In-Center Hemodialysis Treatment 8220-80-35A16:55:00.000Z 5224-08-02U81:55:40.000Z BP Sitting (Pre-Dialysis) 174/90 mmHg BP Sitting (Post-Dialysis) 166/78 mmHg Concurrent Access: falseAV Fistula Forearm (Left) Arterial BP Standing (Pre-Dialysis) 174/88 mmHg BP Standing (P ost-Dialysis) 172/84 mmHg Sitting Heart Rate Pre-Dialysis 83 BPM Sitting Heart Rate Post-Dialysis 74 BPM Standing Heart Rate Pre-Dialysis 83 BPM Standing Heart Rate Post-Dialysis 75 BPM Temperature Pre-Dialysis 97.5 degF Temperature Post -Dialysis 97.5 degF October 28, 2023 In-Center Hemodialysis Treatment 8913-91-30B23:55:00.000Z 8151-80-49J63:59:40.000Z BP Sitting (Pre-Dialysis) 182/98 mmHg BP Sitting (Post-Dialysis) 181/87 mmHg Concurrent Access: falseAV Fistula Forearm (Left) Arterial BP Standing (Pre-Dialysis) 180/92 mmHg BP Standing (P ost-Dialysis) 180/86 mmHg Sitting Heart Rate Pre-Dialysis 79 BPM Sitting Heart Rate Post-Dialysis 70 BPM Standing Heart Rate Pre-Dialysis 78 BPM Standing Heart Rate Post-Dialysis 72 BPM Temperature Pre-Dialysis 97.6 degF Temperature Post -Dialysis 97.6 degF October 25, 2023 In-Center Hemodialysis Treatment [id number]:54:00.000Z 5159-58-44Y08:58:32.000Z BP Sitting (Pre-Dialysis) 177/93 mmHg BP Sitting (Post-Dialysis) 169/86 mmHg Concurrent Access: falseAV Fistula Forearm (Left) Arterial BP Standing (Pre-Dialysis) 176/87 mmHg BP Standing (P ost-Dialysis) 172/83 mmHg Sitting Heart Rate Pre-Dialysis 83 BPM Sitting Heart Rate Post-Dialysis 73 BPM Standing Heart Rate Pre-Dialysis 83 BPM Standing Heart Rate Post-Dialysis 74 BPM Temperature Pre-Dialysis 97.6 degF Temperature Post -Dialysis 97.4 degF October 23, 2023 In-Center Hemodialysis Treatment [id number]:07:32.000Z 8431-63-85L50:00:32.000Z BP Sitting (Pre-Dialysis) 178/92 mmHg BP Sitting (Post-Dialysis) 178/83 mmHg Concurrent Access: falseAV Fistula Forearm (Left) Arterial BP Standing (Pre-Dialysis) 172/84 mmHg BP Standing (P ost-Dialysis) 183/83 mmHg Sitting Heart Rate Pre-Dialysis 83 BPM Sitting Heart Rate Post-Dialysis 75 BPM Standing Heart Rate Pre-Dialysis 85 BPM Standing Heart Rate Post-Dialysis 76 BPM Temperature Pre-Dialysis 97.6 degF Temperature Post -Dialysis 97 degF October 21, 2023 In-Center Hemodialysis Treatment 2345-04-68P69:02:00.000Z 9163-36-56G69:08:32.000Z BP Sitting (Pre-Dialysis) 176/95 mmHg BP Sitting (Post-Dialysis) 159/81 mmHg Concurrent Access: falseAV Fistula Forearm (Left) Arterial BP Standing (Pre-Dialysis) 180/90 mmHg BP Standing (P ost-Dialysis) 171/79 mmHg Sitting Heart Rate Pre-Dialysis 83 BPM Sitting Heart Rate Post-Dialysis 68 BPM Standing Heart Rate Pre-Dialysis 83 BPM Standing Heart Rate Post-Dialysis 71 BPM Temperature Pre-Dialysis 98.5 degF Temperature Post -Dialysis 97.6 degF October 18, 2023 In-Center Hemodialysis Treatment 1220-97-10N13:59:28.000Z 1719-07-25I95:01:28.000Z BP Sitting (Pre-Dialysis) 180/98 mmHg BP Sitting (Post-Dialysis) 167/85 mmHg Concurrent Access: falseAV Fistula Forearm (Left) Arterial BP Standing (Pre-Dialysis) 176/92 mmHg BP Standing (P ost-Dialysis) 168/84 mmHg Sitting Heart Rate Pre-Dialysis 81 BPM Sitting Heart Rate Post-Dialysis 76 BPM Standing Heart Rate Pre-Dialysis 80 BPM Standing Heart Rate Post-Dialysis 76 BPM Temperature Pre-Dialysis 97.5 degF Temperature Post -Dialysis 97.8 degF October 16, 2023 In-Center Hemodialysis Treatment 4186-75-25W31:57:00.000Z 4664-60-16G85:04:28.000Z BP Sitting (Pre-Dialysis) 182/95 mmHg BP Sitting (Post-Dialysis) 166/81 mmHg Concurrent Access: falseAV Fistula Forearm (Left) Arterial BP Standing (Pre-Dialysis) 172/89 mmHg BP Standing (P ost-Dialysis) 174/81 mmHg Sitting Heart Rate Pre-Dialysis 76 BPM Sitting Heart Rate Post-Dialysis 66 BPM Standing Heart Rate Pre-Dialysis 79 BPM Standing Heart Rate Post-Dialysis 67 BPM Temperature Pre-Dialysis 97.8 degF Temperature Post -Dialysis 97.9 degF October 14, 2023 In-Center Hemodialysis Treatment [id number]:55:28.000Z 5832-81-89Z74:56:28.000Z BP Sitting (Pre-Dialysis) 161/84 mmHg BP Sitting (Post-Dialysis) 172/81 mmHg Concurrent Access: falseAV Fistula Forearm (Left) Arterial BP Standing (Pre-Dialysis) 168/84 mmHg BP Standing (P ost-Dialysis) 175/80 mmHg Sitting Heart Rate Pre-Dialysis 78 BPM Sitting Heart Rate Post-Dialysis 69 BPM Standing Heart Rate Pre-Dialysis 78 BPM Standing Heart Rate Post-Dialysis 71 BPM Temperature Pre-Dialysis 97.6 degF Temperature Post -Dialysis 97 degF October 11, 2023 In-Center Hemodialysis Treatment [id number]:53:50.000Z 7346-97-41Q94:56:51.000Z BP Sitting (Pre-Dialysis) 181/84 mmHg BP Sitting (Post-Dialysis) 159/77 mmHg Concurrent Access: falseAV Fistula Forearm (Left) Arterial BP Standing (Pre-Dialysis) 171/88 mmHg BP Standing (P ost-Dialysis) 168/77 mmHg Sitting Heart Rate Pre-Dialysis 80 BPM Sitting Heart Rate Post-Dialysis 69 BPM Standing Heart Rate Pre-Dialysis 81 BPM Standing Heart Rate Post-Dialysis 70 BPM Temperature Pre-Dialysis 98.2 degF Temperature Post -Dialysis 97.6 degF October 09, 2023 In-Center Hemodialysis Treatment [id number]:56:50.000Z 6004-17-66D30:57:50.000Z BP Sitting (Pre-Dialysis) 181/90 mmHg BP Sitting (Post-Dialysis) 161/79 mmHg Concurrent Access: falseAV Fistula Forearm (Left) Arterial BP Standing (Pre-Dialysis) 174/87 mmHg BP Standing (P ost-Dialysis) 158/79 mmHg Sitting Heart Rate Pre-Dialysis 77 BPM Sitting Heart Rate Post-Dialysis 72 BPM Standing Heart Rate Pre-Dialysis 80 BPM Standing Heart Rate Post-Dialysis 74 BPM Temperature Pre-Dialysis 97.3 degF October 07, 2023 In-Center Hemodialysis Treatment 7739-25-07V71:56:00.000Z 3884-18-73X16:59:50.000Z BP Sitting (Pre-Dialysis) 160/85 mmHg BP Sitting (Post-Dialysis) 160/81 mmHg Concurrent Access: falseAV Fistula Forearm (Left) Arterial BP Standing (Pre-Dialysis) 171/90 mmHg BP Standing (P ost-Dialysis) 166/81 mmHg Sitting Heart Rate Pre-Dialysis 78 BPM Sitting Heart Rate Post-Dialysis 70 BPM Standing Heart Rate Pre-Dialysis 77 BPM Standing Heart Rate Post-Dialysis 72 BPM Temperature Pre-Dialysis 97.1 degF Temperature Post -Dialysis 97.3 degF October 04, 2023 In-Center Hemodialysis Treatment [id number]:56:00.000Z 7553-62-00G89:06:03.000Z BP Sitting (Pre-Dialysis) 169/89 mmHg BP Sitting (Post-Dialysis) 160/79 mmHg Concurrent Access: falseAV Fistula Forearm (Left) Arterial BP Standing (Pre-Dialysis) 167/82 mmHg BP Standing (P ost-Dialysis) 167/82 mmHg Sitting Heart Rate Pre-Dialysis 79 BPM Sitting Heart Rate Post-Dialysis 71 BPM Standing Heart Rate Pre-Dialysis 78 BPM Standing Heart Rate Post-Dialysis 76 BPM Temperature Pre-Dialysis 97.6 degF Temperature Post -Dialysis 97.9 degF October 02, 2023 In-Center Hemodialysis Treatment [id number]:01:41.000Z 4332-99-70P08:05:42.000Z BP Sitting (Pre-Dialysis) 178/95 mmHg BP Sitting (Post-Dialysis) 163/80 mmHg Concurrent Access: falseAV Fistula Forearm (Left) Arterial BP Standing (Pre-Dialysis) 196/100 mmHg Sitti ng Heart Rate Post-Dialysis 72 BPM Sitting Heart Rate Pre-Dialysis 80 BPM Temperatu re Post-Dialysis 97.4 degF Standing Heart Rate Pre-Dialysis 85 BPM Temperature Pre-Dialysis 97.6 degF September 30, 2023 In-Center Hemodialysis Treatment 3944-34-54L09:00:00.000Z 3796-90-33A20:02:48.000Z BP Sitting (Pre-Dialysis) 174/88 mmHg BP Sitting (Post-Dialysis) 157/74 mmHg Concurrent Access: falseAV Fistula Forearm (Left) Arterial BP Standing (Pre-Dialysis) 176/84 mmHg BP Standing (P ost-Dialysis) 155/71 mmHg Sitting Heart Rate Pre-Dialysis 81 BPM Sitting Heart Rate Post-Dialysis 69 BPM Standing Heart Rate Pre-Dialysis 79 BPM Standing Heart Rate Post-Dialysis 75 BPM Temperature Pre-Dialysis 97.8 degF Temperature Post -Dialysis 97.8 degF September 27, 2023 In-Center Hemodialysis Treatment [id number]:56:00.000Z [id number]:55:52.000Z BP Sitting (Pre-Dialysis) 168/88 mmHg BP Sitting (Post-Dialysis) 160/78 mmHg Concurrent Access: falseAV Fistula Forearm (Left) Arterial BP Standing (Pre-Dialysis) 172/81 mmHg BP Standing (P ost-Dialysis) 131/81 mmHg Sitting Heart Rate Pre-Dialysis 80 BPM Sitting Heart Rate Post-Dialysis 72 BPM Standing Heart Rate Pre-Dialysis 82 BPM Standing Heart Rate Post-Dialysis 72 BPM Temperature Pre-Dialysis 97.8 degF Temperature Post -Dialysis 97.5 degF September 25, 2023 In-Center Hemodialysis Treatment 1236-64-09Y75:58:53.000Z 8534-70-87A87:59:53.000Z BP Sitting (Pre-Dialysis) 167/83 mmHg BP Sitting (Post-Dialysis) 165/78 mmHg Concurrent Access: falseAV Fistula Forearm (Left) Arterial BP Standing (Pre-Dialysis) 172/82 mmHg BP Standing (P ost-Dialysis) 161/77 mmHg Sitting Heart Rate Pre-Dialysis 79 BPM Sitting Heart Rate Post-Dialysis 72 BPM Standing Heart Rate Pre-Dialysis 79 BPM Standing Heart Rate Post-Dialysis 76 BPM Temperature Pre-Dialysis 97.6 degF Temperature Post -Dialysis 97.8 degF September 23, 2023 In-Center Hemodialysis Treatment 6455-43-57P67:57:00.000Z 2325-46-63R16:59:53.000Z BP Sitting (Pre-Dialysis) 171/92 mmHg BP Sitting (Post-Dialysis) 165/79 mmHg Concurrent Access: falseAV Fistula Forearm (Left) Arterial BP Standing (Pre-Dialysis) 158/77 mmHg BP Standing (P ost-Dialysis) 171/81 mmHg Sitting Heart Rate Pre-Dialysis 82 BPM Sitting Heart Rate Post-Dialysis 72 BPM Standing Heart Rate Pre-Dialysis 82 BPM Standing Heart Rate Post-Dialysis 77 BPM Temperature Pre-Dialysis 97.8 degF Temperature Post -Dialysis 97.5 degF September 20, 2023 In-Center Hemodialysis Treatment 6741-53-52Z74:53:00.000Z 5471-06-94H85:55:10.000Z BP Sitting (Pre-Dialysis) 153/86 mmHg BP Sitting (Post-Dialysis) 160/80 mmHg Concurrent Access: falseAV Fistula Forearm (Left) Arterial BP Standing (Pre-Dialysis) 166/86 mmHg BP Standing (P ost-Dialysis) 169/78 mmHg Sitting Heart Rate Pre-Dialysis 79 BPM Sitting Heart Rate Post-Dialysis 70 BPM Standing Heart Rate Pre-Dialysis 79 BPM Standing Heart Rate Post-Dialysis 73 BPM Temperature Pre-Dialysis 97.9 degF Temperature Post -Dialysis 97.3 degF September 18, 2023 In-Center Hemodialysis Treatment 5324-57-50M59:59:00.000Z 8906-33-50W12:03:10.000Z BP Sitting (Pre-Dialysis) 166/81 mmHg BP Sitting (Post-Dialysis) 145/77 mmHg Concurrent Access: falseAV Fistula Forearm (Left) Arterial BP Standing (Pre-Dialysis) 168/80 mmHg BP Standing (P ost-Dialysis) 161/75 mmHg Sitting Heart Rate Pre-Dialysis 75 BPM Sitting Heart Rate Post-Dialysis 72 BPM Standing Heart Rate Pre-Dialysis 75 BPM Standing Heart Rate Post-Dialysis 76 BPM Temperature Pre-Dialysis 97.6 degF Temperature Post -Dialysis 97.8 degF September 16, 2023 In-Center Hemodialysis Treatment [id number]:59:09.000Z 2739-68-31C64:59:10.000Z BP Sitting (Pre-Dialysis) 138/88 mmHg BP Sitting (Post-Dialysis) 153/74 mmHg Concurrent Access: falseAV Fistula Forearm (Left) Arterial BP Standing (Pre-Dialysis) 168/82 mmHg BP Standing (P ost-Dialysis) 150/69 mmHg Sitting Heart Rate Pre-Dialysis 84 BPM Sitting Heart Rate Post-Dialysis 69 BPM Standing Heart Rate Pre-Dialysis 81 BPM Standing Heart Rate Post-Dialysis 75 BPM Temperature Pre-Dialysis 97.5 degF Temperature Post -Dialysis 97.8 degF September 13, 2023 In-Center Hemodialysis Treatment 9786-57-10H62:49:39.000Z 1465-67-30D43:52:40.000Z BP Sitting (Pre-Dialysis) 159/85 mmHg BP Sitting (Post-Dialysis) 157/75 mmHg Concurrent Access: falseAV Fistula Forearm (Left) Arterial BP Standing (Pre-Dialysis) 176/85 mmHg BP Standing (P ost-Dialysis) 149/72 mmHg Sitting Heart Rate Pre-Dialysis 77 BPM Sitting Heart Rate Post-Dialysis 76 BPM Standing Heart Rate Pre-Dialysis 79 BPM Standing Heart Rate Post-Dialysis 80 BPM Temperature Pre-Dialysis 97.8 degF Temperature Post -Dialysis 97.9 degF September 11, 2023 In-Center Hemodialysis Treatment 7416-06-64E26:38:00.000Z 5502-17-82D62:39:40.000Z BP Sitting (Pre-Dialysis) 175/84 mmHg BP Sitting (Post-Dialysis) 161/74 mmHg Concurrent Access: falseAV Fistula Forearm (Left) Arterial BP Standing (Pre-Dialysis) 174/82 mmHg BP Standing (P ost-Dialysis) 105/74 mmHg Sitting Heart Rate Pre-Dialysis 82 BPM Sitting Heart Rate Post-Dialysis 74 BPM Standing Heart Rate Pre-Dialysis 84 BPM Standing Heart Rate Post-Dialysis 77 BPM Temperature Pre-Dialysis 97.4 degF Temperature Post -Dialysis 97 degF September 09, 2023 In-Center Hemodialysis Treatment [id number]:39:14.000Z 5156-06-86N54:40:15.000Z BP Sitting (Pre-Dialysis) 156/81 mmHg BP Sitting (Post-Dialysis) 158/74 mmHg Concurrent Access: falseAV Fistula Forearm (Left) Arterial BP Standing (Pre-Dialysis) 151/75 mmHg Sitti ng Heart Rate Post-Dialysis 70 BPM Sitting Heart Rate Pre-Dialysis 79 BPM Temperatu re Post-Dialysis 97.6 degF Standing Heart Rate Pre-Dialysis 79 BPM Temperature Pre-Dialysis 97.6 degF September 06, 2023 In-Center Hemodialysis Treatment 7671-01-43P43:54:47.000Z [id number]:54:48.000Z BP Sitting (Pre-Dialysis) 167/84 mmHg BP Sitting (Post-Dialysis) 168/83 mmHg Concurrent Access: falseAV Fistula Forearm (Left) Arterial BP Standing (Pre-Dialysis) 161/82 mmHg BP Standing (P ost-Dialysis) 171/79 mmHg Sitting Heart Rate Pre-Dialysis 82 BPM Sitting Heart Rate Post-Dialysis 74 BPM Standing Heart Rate Pre-Dialysis 82 BPM Standing Heart Rate Post-Dialysis 75 BPM Temperature Pre-Dialysis 97.6 degF Temperature Post -Dialysis 97.6 degF September 04, 2023 In-Center Hemodialysis Treatment 0412-44-15N10:58:00.000Z 0318-21-17T47:03:35.000Z BP Sitting (Pre-Dialysis) 176/88 mmHg BP Sitting (Post-Dialysis) 161/78 mmHg Concurrent Access: falseAV Fistula Forearm (Left) Arterial BP Standing (Pre-Dialysis) 164/80 mmHg BP Standing (P ost-Dialysis) 159/125 mmHg Sitting Heart Rate Pre-Dialysis 76 BPM Sitting Heart Rate Post-Dialysis 70 BPM Standing Heart Rate Pre-Dialysis 76 BPM Standing Heart Rate Post-Dialysis 71 BPM Temperature Pre-Dialysis 97.4 degF Temperature Post -Dialysis 97.8 degF September 02, 2023 In-Center Hemodialysis Treatment [id number]:51:00.000Z [id number]:55:21.000Z BP Sitting (Pre-Dialysis) 156/78 mmHg BP Sitting (Post-Dialysis) 160/79 mmHg Concurrent Access: falseAV Fistula Forearm (Left) Arterial BP Standing (Pre-Dialysis) 168/81 mmHg BP Standing (P ost-Dialysis) 165/76 mmHg Sitting Heart Rate Pre-Dialysis 77 BPM Sitting Heart Rate Post-Dialysis 165 BPM Standing Heart Rate Pre-Dialysis 78 BPM Standing Heart Rate Post-Dialysis 74 BPM Temperature Pre-Dialysis 97.6 degF Temperature Post -Dialysis 97.6 degF August 30, 2023 In-Center Hemodialysis Treatment [id number]:50:28.000Z [id number]:55:28.000Z BP Sitting (Pre-Dialysis) 151/77 mmHg BP Sitting (Post-Dialysis) 159/71 mmHg Concurrent Access: falseAV Fistula Forearm (Left) Arterial BP Standing (Pre-Dialysis) 147/73 mmHg BP Standing (P ost-Dialysis) 158/71 mmHg Sitting Heart Rate Pre-Dialysis 81 BPM Sitting Heart Rate Post-Dialysis 70 BPM Standing Heart Rate Pre-Dialysis 82 BPM Standing Heart Rate Post-Dialysis 76 BPM Temperature Pre-Dialysis 97.6 degF August 28, 2023 In-Center Hemodialysis Treatment [id number]:51:00.000Z [id number]:52:29.000Z BP Sitting (Pre-Dialysis) 158/80 mmHg BP Sitting (Post-Dialysis) 152/74 mmHg Concurrent Access: falseAV Fistula Forearm (Left) Arterial BP Standing (Pre-Dialysis) 163/82 mmHg BP Standing (P ost-Dialysis) 153/72 mmHg Sitting Heart Rate Pre-Dialysis 81 BPM Sitting Heart Rate Post-Dialysis 75 BPM Standing Heart Rate Pre-Dialysis 81 BPM Standing Heart Rate Post-Dialysis 80 BPM Temperature Pre-Dialysis 97.9 degF Temperature Post -Dialysis 97.6 degF August 26, 2023 In-Center Hemodialysis Treatment [id number]:04:00.000Z [id number]:08:29.000Z BP Sitting (Pre-Dialysis) 164/82 mmHg BP Sitting (Post-Dialysis) 157/68 mmHg Concurrent Access: falseAV Fistula Forearm (Left) Arterial BP Standing (Pre-Dialysis) 159/79 mmHg BP Standing (P ost-Dialysis) 156/73 mmHg Sitting Heart Rate Pre-Dialysis 81 BPM Sitting Heart Rate Post-Dialysis 77 BPM Standing Heart Rate Pre-Dialysis 82 BPM Standing Heart Rate Post-Dialysis 79 BPM Temperature Pre-Dialysis 97.6 degF Temperature Post -Dialysis 97.7 degF August 23, 2023 In-Center Hemodialysis Treatment [id number]:55:42.000Z 5961-72-87P35:57:42.000Z BP Sitting (Pre-Dialysis) 160/80 mmHg BP Sitting (Post-Dialysis) 155/75 mmHg Concurrent Access: falseAV Fistula Forearm (Left) Arterial BP Standing (Pre-Dialysis) 156/77 mmHg BP Standing (P ost-Dialysis) 149/72 mmHg Sitting Heart Rate Pre-Dialysis 79 BPM Sitting Heart Rate Post-Dialysis 70 BPM Standing Heart Rate Pre-Dialysis 79 BPM Standing Heart Rate Post-Dialysis 80 BPM Temperature Pre-Dialysis 97.6 degF August 21, 2023 In-Center Hemodialysis Treatment [id number]:56:00.000Z [id number]:58:15.000Z BP Sitting (Pre-Dialysis) 163/80 mmHg BP Sitting (Post-Dialysis) 132/70 mmHg Concurrent Access: falseAV Fistula Forearm (Left) Arterial BP Standing (Pre-Dialysis) 159/73 mmHg BP Standing (P ost-Dialysis) 124/61 mmHg Sitting Heart Rate Pre-Dialysis 79 BPM Sitting Heart Rate Post-Dialysis 75 BPM Standing Heart Rate Pre-Dialysis 80 BPM Standing Heart Rate Post-Dialysis 77 BPM Temperature Pre-Dialysis 97.8 degF August 20, 2023 In-Center Hemodialysis Treatment [id number]:54:00.000Z [id number]:07:59.000Z BP Sitting (Pre-Dialysis) 163/77 mmHg BP Sitting (Post-Dialysis) 158/76 mmHg Concurrent Access: falseAV Fistula Forearm (Left) Arterial BP Standing (Pre-Dialysis) 149/76 mmHg BP Standing (P ost-Dialysis) 169/66 mmHg Sitting Heart Rate Pre-Dialysis 78 BPM Sitting Heart Rate Post-Dialysis 74 BPM Standing Heart Rate Pre-Dialysis 78 BPM Standing Heart Rate Post-Dialysis 74 BPM Temperature Pre-Dialysis 97.6 degF Temperature Post -Dialysis 97.8 degF August 16, 2023 In-Center Hemodialysis Treatment [id number]:59:00.000Z [id number]:01:19.000Z BP Sitting (Pre-Dialysis) 163/82 mmHg BP Sitting (Post-Dialysis) 156/72 mmHg Concurrent Access: falseAV Fistula Forearm (Left) Arterial BP Standing (Pre-Dialysis) 167/77 mmHg BP Standing (P ost-Dialysis) 151/72 mmHg Sitting Heart Rate Pre-Dialysis 77 BPM Sitting Heart Rate Post-Dialysis 72 BPM Standing Heart Rate Pre-Dialysis 76 BPM Standing Heart Rate Post-Dialysis 73 BPM Temperature Pre-Dialysis 97.8 degF Temperature Post -Dialysis 97.6 degF August 14, 2023 In-Center Hemodialysis Treatment [id number]:02:00.000Z [id number]:03:18.000Z BP Sitting (Pre-Dialysis) 165/84 mmHg BP Sitting (Post-Dialysis) 177/82 mmHg Concurrent Access: falseAV Fistula Forearm (Left) Arterial BP Standing (Pre-Dialysis) 160/78 mmHg BP Standing (P ost-Dialysis) 184/83 mmHg Sitting Heart Rate Pre-Dialysis 79 BPM Sitting Heart Rate Post-Dialysis 83 BPM Standing Heart Rate Pre-Dialysis 77 BPM Standing Heart Rate Post-Dialysis 84 BPM Temperature Pre-Dialysis 97.9 degF Temperature Post -Dialysis 97.6 degF August 12, 2023 In-Center Hemodialysis Treatment [id number]:12:09.000Z [id number]:09:09.000Z BP Sitting (Pre-Dialysis) 160/81 mmHg BP Sitting (Post-Dialysis) 163/76 mmHg Concurrent Access: falseAV Fistula Forearm (Left) Arterial BP Standing (Pre-Dialysis) 167/81 mmHg BP Standing (P ost-Dialysis) 146/77 mmHg Sitting Heart Rate Pre-Dialysis 84 BPM Sitting Heart Rate Post-Dialysis 76 BPM Standing Heart Rate Pre-Dialysis 84 BPM Standing Heart Rate Post-Dialysis 79 BPM Temperature Pre-Dialysis 97.6 degF Temperature Post -Dialysis 97.8 degF August 09, 2023 In-Center Hemodialysis Treatment [id number]:52:00.000Z [id number]:56:07.000Z BP Sitting (Pre-Dialysis) 160/76 mmHg BP Sitting (Post-Dialysis) 140/73 mmHg Concurrent Access: falseAV Fistula Forearm (Left) Arterial BP Standing (Pre-Dialysis) 153/73 mmHg BP Standing (P ost-Dialysis) 148/73 mmHg Sitting Heart Rate Pre-Dialysis 80 BPM Sitting Heart Rate Post-Dialysis 76 BPM Standing Heart Rate Pre-Dialysis 81 BPM Standing Heart Rate Post-Dialysis 76 BPM Temperature Pre-Dialysis 97.8 degF Temperature Post -Dialysis 97.7 degF August 07, 2023 In-Center Hemodialysis Treatment [id number]:58:09.000Z [id number]:59:10.000Z BP Sitting (Pre-Dialysis) 171/81 mmHg BP Sitting (Post-Dialysis) 144/72 mmHg Concurrent Access: falseAV Fistula Forearm (Left) Arterial BP Standing (Pre-Dialysis) 169/76 mmHg BP Standing (P ost-Dialysis) 135/70 mmHg Sitting Heart Rate Pre-Dialysis 83 BPM Sitting Heart Rate Post-Dialysis 75 BPM Standing Heart Rate Pre-Dialysis 86 BPM Standing Heart Rate Post-Dialysis 77 BPM Temperature Pre-Dialysis 97.6 degF Temperature Post -Dialysis 97.6 degF August 05, 2023 In-Center Hemodialysis Treatment [id number]:00:00.000Z [id number]:03:10.000Z BP Sitting (Pre-Dialysis) 158/78 mmHg BP Sitting (Post-Dialysis) 107/90 mmHg Concurrent Access: falseAV Fistula Forearm (Left) Arterial BP Standing (Pre-Dialysis) 161/80 mmHg BP Standing (P ost-Dialysis) 152/68 mmHg Sitting Heart Rate Pre-Dialysis 75 BPM Sitting Heart Rate Post-Dialysis 67 BPM Standing Heart Rate Pre-Dialysis 73 BPM Standing Heart Rate Post-Dialysis 75 BPM Temperature Pre-Dialysis 97.6 degF Temperature Post -Dialysis 97.6 degF August 02, 2023 In-Center Hemodialysis Treatment [id number]:56:00.000Z [id number]:57:10.000Z BP Sitting (Pre-Dialysis) 158/80 mmHg BP Sitting (Post-Dialysis) 149/69 mmHg Concurrent Access: falseAV Fistula Forearm (Left) Arterial BP Standing (Pre-Dialysis) 161/78 mmHg BP Standing (P ost-Dialysis) 141/67 mmHg Sitting Heart Rate Pre-Dialysis 76 BPM Sitting Heart Rate Post-Dialysis 74 BPM Standing Heart Rate Pre-Dialysis 75 BPM Standing Heart Rate Post-Dialysis 76 BPM Temperature Pre-Dialysis 97.6 degF Temperature Post -Dialysis 97.6 degF July 31, 2023 In-Center Hemodialysis Treatment [id number]:58:00.000Z 5643-04-47T20:01:10.000Z BP Sitting (Pre-Dialysis) 164/84 mmHg BP Sitting (Post-Dialysis) 144/74 mmHg Concurrent Access: falseAV Fistula Forearm (Left) Arterial BP Standing (Pre-Dialysis) 156/77 mmHg BP Standing (P ost-Dialysis) 150/73 mmHg Sitting Heart Rate Pre-Dialysis 77 BPM Sitting Heart Rate Post-Dialysis 73 BPM Standing Heart Rate Pre-Dialysis 80 BPM Standing Heart Rate Post-Dialysis 76 BPM Temperature Pre-Dialysis 97.6 degF Temperature Post -Dialysis 98.3 degF July 29, 2023 In-Center Hemodialysis Treatment 6458-06-48M09:55:00.000Z 7133-44-50S92:57:10.000Z BP Sitting (Pre-Dialysis) 156/83 mmHg BP Sitting (Post-Dialysis) 153/76 mmHg Concurrent Access: falseAV Fistula Forearm (Left) Arterial BP Standing (Pre-Dialysis) 159/80 mmHg BP Standing (P ost-Dialysis) 156/68 mmHg Sitting Heart Rate Pre-Dialysis 75 BPM Sitting Heart Rate Post-Dialysis 71 BPM Standing Heart Rate Pre-Dialysis 75 BPM Standing Heart Rate Post-Dialysis 73 BPM Temperature Pre-Dialysis 97.6 degF Temperature Post -Dialysis 97.6 degF July 26, 2023 In-Center Hemodialysis Treatment [id number]:00:11.000Z [id number]:05:11.000Z BP Sitting (Pre-Dialysis) 153/75 mmHg BP Sitting (Post-Dialysis) 153/69 mmHg Concurrent Access: falseAV Fistula Forearm (Left) Arterial Sitting Heart Rate Pre-Dialysis 81 BPM BP Standi ng (Post-Dialysis) 153/69 mmHg Temperature Pre-Dialysis 97 degF Sitting Heart Ra te Post-Dialysis 76 BPM Standing Heart Rate Post-Sandra lysis 77 BPM Temperature Post-Dialysis 97 degF July 24, 2023 In-Center Hemodialysis Treatment [id number]:08:36.000Z 7854-07-77X77:31:36.000Z BP Sitting (Pre-Dialysis) 174/91 mmHg BP Sitting (Post-Dialysis) 147/67 mmHg Concurrent Access: falseAV Fistula Forearm (Left) Arterial BP Standing (Pre-Dialysis) 171/84 mmHg Sitting Heart Rate Post-Dialysis 78 BPM Sitting Heart Rate Pre-Dialysis 80 BPM Temperatu re Post-Dialysis 97 degF Standing Heart Rate Pre-Dialysis 80 BPM Temperature Pre-Dialysis 97.6 degF July 21, 2023 In-Center Hemodialysis Treatment [id number]:55:00.000Z 3724-88-43T25:59:36.000Z BP Sitting (Pre-Dialysis) 163/84 mmHg BP Sitting (Post-Dialysis) 146/70 mmHg Concurrent Access: falseAV Fistula Forearm (Left) Arterial BP Standing (Pre-Dialysis) 155/75 mmHg BP Standing (P ost-Dialysis) 149/71 mmHg Sitting Heart Rate Pre-Dialysis 75 BPM Sitting Heart Rate Post-Dialysis 76 BPM Standing Heart Rate Pre-Dialysis 75 BPM Standing Heart Rate Post-Dialysis 77 BPM Temperature Pre-Dialysis 97.6 degF Temperature Post -Dialysis 97.6 degF July 19, 2023 In-Center Hemodialysis Treatment [id number]:57:27.000Z [id number]:57:27.000Z BP Sitting (Pre-Dialysis) 168/85 mmHg BP Sitting (Post-Dialysis) 158/70 mmHg Concurrent Access: falseAV Fistula Forearm (Left) Arterial BP Standing (Pre-Dialysis) 157/79 mmHg BP Standing (P ost-Dialysis) 53/71 mmHg Sitting Heart Rate Pre-Dialysis 75 BPM Sitting Heart Rate Post-Dialysis 69 BPM Standing Heart Rate Pre-Dialysis 79 BPM Standing Heart Rate Post-Dialysis 74 BPM Temperature Pre-Dialysis 97.6 degF Temperature Post -Dialysis 97.9 degF July 17, 2023 In-Center Hemodialysis Treatment [id number]:58:00.000Z 3779-25-83H79:00:27.000Z BP Sitting (Pre-Dialysis) 167/86 mmHg BP Sitting (Post-Dialysis) 156/71 mmHg Concurrent Access: falseAV Fistula Forearm (Left) Arterial BP Standing (Pre-Dialysis) 161/83 mmHg BP Standing (P ost-Dialysis) 152/73 mmHg Sitting Heart Rate Pre-Dialysis 76 BPM Sitting Heart Rate Post-Dialysis 72 BPM Standing Heart Rate Pre-Dialysis 76 BPM Standing Heart Rate Post-Dialysis 74 BPM Temperature Pre-Dialysis 97.6 degF Temperature Post -Dialysis 97.8 degF July 14, 2023 In-Center Hemodialysis Treatment [id number]:29:00.000Z [id number]:35:14.000Z BP Sitting (Pre-Dialysis) 161/84 mmHg BP Sitting (Post-Dialysis) 147/70 mmHg Concurrent Access: falseAV Fistula Forearm (Left) Arterial BP Standing (Pre-Dialysis) 160/80 mmHg BP Standing (P ost-Dialysis) 159/73 mmHg Sitting Heart Rate Pre-Dialysis 83 BPM Sitting Heart Rate Post-Dialysis 75 BPM Standing Heart Rate Pre-Dialysis 84 BPM Standing Heart Rate Post-Dialysis 75 BPM Temperature Pre-Dialysis 97.6 degF Temperature Post -Dialysis 97.3 degF July 12, 2023 In-Center Hemodialysis Treatment [id number]:55:12.000Z 0897-49-72Y05:54:12.000Z BP Sitting (Pre-Dialysis) 175/85 mmHg BP Sitting (Post-Dialysis) 164/75 mmHg Concurrent Access: falseAV Fistula Forearm (Left) Arterial BP Standing (Pre-Dialysis) 177/88 mmHg BP Standing (P ost-Dialysis) 163/77 mmHg Sitting Heart Rate Pre-Dialysis 75 BPM Sitting Heart Rate Post-Dialysis 73 BPM Standing Heart Rate Pre-Dialysis 76 BPM Standing Heart Rate Post-Dialysis 74 BPM Temperature Pre-Dialysis 97.6 degF Temperature Post -Dialysis 97 degF July 08, 2023 In-Center Hemodialysis Treatment 4935-59-72K43:53:12.000Z 0617-38-92J99:01:12.000Z BP Sitting (Pre-Dialysis) 175/87 mmHg BP Sitting (Post-Dialysis) 159/76 mmHg Concurrent Access: falseAV Fistula Forearm (Left) Arterial BP Standing (Pre-Dialysis) 184/83 mmHg BP Standing (P ost-Dialysis) 161/72 mmHg Sitting Heart Rate Pre-Dialysis 83 BPM Sitting Heart Rate Post-Dialysis 74 BPM Standing Heart Rate Pre-Dialysis 84 BPM Standing Heart Rate Post-Dialysis 76 BPM Temperature Pre-Dialysis 97.3 degF Temperature Post -Dialysis 97.6 degF July 05, 2023 In-Center Hemodialysis Treatment [id number]:00:00.000Z 9887-91-97S54:59:43.000Z BP Sitting (Pre-Dialysis) 182/87 mmHg BP Sitting (Post-Dialysis) 165/77 mmHg Concurrent Access: falseAV Fistula Forearm (Left) Arterial BP Standing (Pre-Dialysis) 176/78 mmHg BP Standing (P ost-Dialysis) 175/67 mmHg Sitting Heart Rate Pre-Dialysis 81 BPM Sitting Heart Rate Post-Dialysis 75 BPM Standing Heart Rate Pre-Dialysis 82 BPM Standing Heart Rate Post-Dialysis 87 BPM Temperature Pre-Dialysis 97.6 degF Temperature Post -Dialysis 97 degF July 03, 2023 In-Center Hemodialysis Treatment [id number]:47:43.000Z 6232-89-39C04:01:43.000Z BP Sitting (Pre-Dialysis) 174/88 mmHg BP Sitting (Post-Dialysis) 153/76 mmHg Concurrent Access: falseAV Fistula Forearm (Left) Arterial BP Standing (Pre-Dialysis) 185/86 mmHg BP Standing (P ost-Dialysis) 161/74 mmHg Sitting Heart Rate Pre-Dialysis 86 BPM Sitting Heart Rate Post-Dialysis 78 BPM Standing Heart Rate Pre-Dialysis 87 BPM Standing Heart Rate Post-Dialysis 79 BPM Temperature Pre-Dialysis 97.6 degF Temperature Post -Dialysis 97.6 degF July 01, 2023 In-Center Hemodialysis Treatment 9419-53-13H96:59:00.000Z 1886-30-38S22:01:43.000Z BP Sitting (Pre-Dialysis) 164/86 mmHg BP Sitting (Post-Dialysis) 159/76 mmHg Concurrent Access: falseAV Fistula Forearm (Left) Arterial BP Standing (Pre-Dialysis) 160/77 mmHg BP Standing (P ost-Dialysis) 158/78 mmHg Sitting Heart Rate Pre-Dialysis 82 BPM Sitting Heart Rate Post-Dialysis 74 BPM Standing Heart Rate Pre-Dialysis 80 BPM Standing Heart Rate Post-Dialysis 78 BPM Temperature Pre-Dialysis 97.6 degF Temperature Post -Dialysis 97.6 degF June 28, 2023 In-Center Hemodialysis Treatment [id number]:54:00.000Z [id number]:54:23.000Z BP Sitting (Pre-Dialysis) 168/84 mmHg BP Sitting (Post-Dialysis) 149/73 mmHg Concurrent Access: falseAV Fistula Forearm (Left) Arterial BP Standing (Pre-Dialysis) 169/82 mmHg BP Standing (P ost-Dialysis) 152/72 mmHg Sitting Heart Rate Pre-Dialysis 83 BPM Sitting Heart Rate Post-Dialysis 78 BPM Standing Heart Rate Pre-Dialysis 85 BPM Standing Heart Rate Post-Dialysis 79 BPM Temperature Pre-Dialysis 97 degF Temperature Post -Dialysis 97.7 degF June 26, 2023 In-Center Hemodialysis Treatment [id number]:54:00.000Z [id number]:56:23.000Z BP Sitting (Pre-Dialysis) 174/81 mmHg BP Sitting (Post-Dialysis) 165/81 mmHg Concurrent Access: falseAV Fistula Forearm (Left) Arterial BP Standing (Pre-Dialysis) 174/81 mmHg BP Standing (P ost-Dialysis) 169/77 mmHg Sitting Heart Rate Pre-Dialysis 83 BPM Sitting Heart Rate Post-Dialysis 75 BPM Standing Heart Rate Pre-Dialysis 83 BPM Standing Heart Rate Post-Dialysis 76 BPM Temperature Pre-Dialysis 97.6 degF Temperature Post -Dialysis 97.6 degF June 25, 2023 Additional Day Of Dialysis Treatment [id number]:36:00.000Z 4679-83-19E73:25:30.000Z BP Sitting (Pre-Dialysis) 177/84 mmHg BP Sitting (Post-Dialysis) 159/79 mmHg Concurrent Access: falseAV Fistula Forearm (Left) Arterial Sitting Heart Rate Pre-Dialysis 78 BPM Sitting H eart Rate Post-Dialysis 72 BPM Temperature Pre-Dialysis 97.6 degF Temperature Post -Dialysis 97.6 degF June 24, 2023 In-Center Hemodialysis Treatment [id number]:00:23.000Z 4186-84-64W23:01:23.000Z BP Sitting (Pre-Dialysis) 178/87 mmHg BP Sitting (Post-Dialysis) 166/77 mmHg Concurrent Access: falseAV Fistula Forearm (Left) Arterial BP Standing (Pre-Dialysis) 173/83 mmHg Sitti ng Heart Rate Post-Dialysis 71 BPM Sitting Heart Rate Pre-Dialysis 81 BPM Temperatu re Post-Dialysis 97.9 degF Standing Heart Rate Pre-Dialysis 83 BPM Temperature Pre-Dialysis 97.6 degF June 21, 2023 In-Center Hemodialysis Treatment [id number]:58:16.000Z [id number]:58:17.000Z BP Sitting (Pre-Dialysis) 169/86 mmHg BP Sitting (Post-Dialysis) 166/77 mmHg Concurrent Access: falseAV Fistula Forearm (Left) Arterial BP Standing (Pre-Dialysis) 173/87 mmHg BP Standing (P ost-Dialysis) 168/78 mmHg Sitting Heart Rate Pre-Dialysis 79 BPM Sitting Heart Rate Post-Dialysis 70 BPM Standing Heart Rate Pre-Dialysis 79 BPM Standing Heart Rate Post-Dialysis 72 BPM Temperature Pre-Dialysis 97.6 degF Temperature Post -Dialysis 97.6 degF June 19, 2023 In-Center Hemodialysis Treatment [id number]:54:00.000Z [id number]:57:11.000Z BP Sitting (Pre-Dialysis) 169/85 mmHg BP Sitting (Post-Dialysis) 166/79 mmHg Concurrent Access: falseAV Fistula Forearm (Left) Arterial BP Standing (Pre-Dialysis) 168/80 mmHg BP Standing (P ost-Dialysis) 177/79 mmHg Sitting Heart Rate Pre-Dialysis 78 BPM Sitting Heart Rate Post-Dialysis 71 BPM Standing Heart Rate Pre-Dialysis 82 BPM Standing Heart Rate Post-Dialysis 73 BPM Temperature Pre-Dialysis 97.6 degF Temperature Post -Dialysis 97.1 degF June 17, 2023 In-Center Hemodialysis Treatment [id number]:52:00.000Z [id number]:54:17.000Z BP Sitting (Pre-Dialysis) 166/87 mmHg BP Sitting (Post-Dialysis) 160/76 mmHg Concurrent Access: falseAV Fistula Forearm (Left) Arterial BP Standing (Pre-Dialysis) 159/80 mmHg BP Standing (P ost-Dialysis) 164/73 mmHg Sitting Heart Rate Pre-Dialysis 75 BPM Sitting Heart Rate Post-Dialysis 72 BPM Standing Heart Rate Pre-Dialysis 77 BPM Standing Heart Rate Post-Dialysis 71 BPM Temperature Pre-Dialysis 97.6 degF Temperature Post -Dialysis 97 degF June 14, 2023 In-Center Hemodialysis Treatment [id number]:58:00.000Z 5383-36-98P06:59:46.000Z BP Sitting (Pre-Dialysis) 167/87 mmHg BP Sitting (Post-Dialysis) 169/78 mmHg Concurrent Access: falseAV Fistula Forearm (Left) Arterial BP Standing (Pre-Dialysis) 169/81 mmHg BP Standing (P ost-Dialysis) 166/77 mmHg Sitting Heart Rate Pre-Dialysis 81 BPM Sitting Heart Rate Post-Dialysis 74 BPM Standing Heart Rate Pre-Dialysis 81 BPM Standing Heart Rate Post-Dialysis 74 BPM Temperature Pre-Dialysis 97.9 degF Temperature Post -Dialysis 97.3 degF June 11, 2023 In-Center Hemodialysis Treatment [id number]:53:00.000Z 4229-70-00G35:24:17.000Z BP Sitting (Pre-Dialysis) 164/85 mmHg BP Sitting (Post-Dialysis) 163/74 mmHg Concurrent Access: falseAV Fistula Forearm (Left) Arterial BP Standing (Pre-Dialysis) 155/77 mmHg BP Standing (P ost-Dialysis) 151/61 mmHg Sitting Heart Rate Pre-Dialysis 78 BPM Sitting Heart Rate Post-Dialysis 68 BPM Standing Heart Rate Pre-Dialysis 79 BPM Standing Heart Rate Post-Dialysis 59 BPM Temperature Pre-Dialysis 97.4 degF Temperature Post -Dialysis 97 degF June 09, 2023 In-Center Hemodialysis Treatment 9970-45-01S75:57:00.000Z 3927-90-54D78:00:17.000Z BP Sitting (Pre-Dialysis) 167/85 mmHg BP Sitting (Post-Dialysis) 150/70 mmHg Concurrent Access: falseAV Fistula Forearm (Left) Arterial BP Standing (Pre-Dialysis) 171/82 mmHg BP Standing (P ost-Dialysis) 138/65 mmHg Sitting Heart Rate Pre-Dialysis 74 BPM Sitting Heart Rate Post-Dialysis 78 BPM Standing Heart Rate Pre-Dialysis 75 BPM Standing Heart Rate Post-Dialysis 73 BPM Temperature Pre-Dialysis 97.6 degF Temperature Post -Dialysis 97 degF June 07, 2023 In-Center Hemodialysis Treatment [id number]:51:22.000Z 7743-06-09V91:53:22.000Z BP Sitting (Pre-Dialysis) 163/87 mmHg BP Sitting (Post-Dialysis) 147/72 mmHg Concurrent Access: falseAV Fistula Forearm (Left) Arterial BP Standing (Pre-Dialysis) 167/79 mmHg BP Standing (P ost-Dialysis) 152/67 mmHg Sitting Heart Rate Pre-Dialysis 77 BPM Sitting Heart Rate Post-Dialysis 73 BPM Standing Heart Rate Pre-Dialysis 78 BPM Standing Heart Rate Post-Dialysis 74 BPM Temperature Pre-Dialysis 97.6 degF Temperature Post -Dialysis 97 degF June 05, 2023 In-Center Hemodialysis Treatment [id number]:56:07.000Z 7814-29-81M23:12:00.000Z BP Sitting (Pre-Dialysis) 184/89 mmHg BP Sitting (Post-Dialysis) 169/81 mmHg Concurrent Access: falseAV Fistula Forearm (Left) Arterial Sitting Heart Rate Pre-Dialysis 76 BPM Sitting H eart Rate Post-Dialysis 71 BPM Temperature Pre-Dialysis 96.7 degF Temperature Post -Dialysis 97 degF June 03, 2023 In-Center Hemodialysis Treatment [id number]:51:00.000Z 3011-68-35L79:47:26.000Z BP Sitting (Pre-Dialysis) 156/76 mmHg BP Sitting (Post-Dialysis) 153/74 mmHg Concurrent Access: falseAV Fistula Forearm (Left) Arterial BP Standing (Pre-Dialysis) 149/74 mmHg BP Standing (P ost-Dialysis) 146/77 mmHg Sitting Heart Rate Pre-Dialysis 76 BPM Sitting Heart Rate Post-Dialysis 72 BPM Standing Heart Rate Pre-Dialysis 77 BPM Standing Heart Rate Post-Dialysis 72 BPM Temperature Pre-Dialysis 97.6 degF Temperature Post -Dialysis 97.6 degF May 31, 2023 In-Center Hemodialysis Treatment [id number]:58:51.000Z 4244-89-32W24:01:52.000Z BP Sitting (Pre-Dialysis) 158/83 mmHg BP Sitting (Post-Dialysis) 151/67 mmHg Concurrent Access: falseAV Fistula Forearm (Left) Arterial BP Standing (Pre-Dialysis) 165/75 mmHg BP Standing (P ost-Dialysis) 142/63 mmHg Sitting Heart Rate Pre-Dialysis 78 BPM Sitting Heart Rate Post-Dialysis 69 BPM Standing Heart Rate Pre-Dialysis 78 BPM Standing Heart Rate Post-Dialysis 72 BPM Temperature Pre-Dialysis 97.6 degF Temperature Post -Dialysis 97.3 degF May 29, 2023 In-Center Hemodialysis Treatment [id number]:56:51.000Z [id number]:59:52.000Z BP Sitting (Pre-Dialysis) 153/79 mmHg BP Sitting (Post-Dialysis) 153/73 mmHg Concurrent Access: falseAV Fistula Forearm (Left) Arterial BP Standing (Pre-Dialysis) 149/76 mmHg BP Standing (P ost-Dialysis) 155/71 mmHg Sitting Heart Rate Pre-Dialysis 77 BPM Sitting Heart Rate Post-Dialysis 69 BPM Standing Heart Rate Pre-Dialysis 79 BPM Standing Heart Rate Post-Dialysis 71 BPM Temperature Pre-Dialysis 97.8 degF Temperature Post -Dialysis 97.3 degF May 27, 2023 In-Center Hemodialysis Treatment [id number]:55:00.000Z 8832-06-25R47:11:52.000Z BP Sitting (Pre-Dialysis) 173/88 mmHg BP Sitting (Post-Dialysis) 165/79 mmHg Concurrent Access: falseAV Fistula Forearm (Left) Arterial BP Standing (Pre-Dialysis) 167/83 mmHg BP Standing (P ost-Dialysis) 165/77 mmHg Sitting Heart Rate Pre-Dialysis 81 BPM Sitting Heart Rate Post-Dialysis 75 BPM Standing Heart Rate Pre-Dialysis 81 BPM Standing Heart Rate Post-Dialysis 75 BPM Temperature Pre-Dialysis 97.8 degF Temperature Post -Dialysis 97.8 degF May 24, 2023 In-Center Hemodialysis Treatment [id number]:51:00.000Z 1151-01-86W29:52:58.000Z BP Sitting (Pre-Dialysis) 160/84 mmHg BP Sitting (Post-Dialysis) 168/79 mmHg Concurrent Access: falseAV Fistula Forearm (Left) Arterial BP Standing (Pre-Dialysis) 167/81 mmHg BP Standing (P ost-Dialysis) 165/77 mmHg Sitting Heart Rate Pre-Dialysis 83 BPM Sitting Heart Rate Post-Dialysis 76 BPM Standing Heart Rate Pre-Dialysis 83 BPM Standing Heart Rate Post-Dialysis 76 BPM Temperature Pre-Dialysis 96.8 degF Temperature Post -Dialysis 97.5 degF May 22, 2023 In-Center Hemodialysis Treatment [id number]:59:00.000Z 2627-29-00T09:03:38.000Z BP Sitting (Pre-Dialysis) 166/83 mmHg BP Sitting (Post-Dialysis) 166/76 mmHg Concurrent Access: falseAV Fistula Forearm (Left) Arterial BP Standing (Pre-Dialysis) 175/87 mmHg Sitti ng Heart Rate Post-Dialysis 76 BPM Sitting Heart Rate Pre-Dialysis 83 BPM Temperatu re Post-Dialysis 97.9 degF Standing Heart Rate Pre-Dialysis 81 BPM Temperature Pre-Dialysis 97.8 degF May 17, 2023 In-Center Hemodialysis Treatment 6401-28-04K08:56:00.000Z [id number]:58:32.000Z BP Sitting (Pre-Dialysis) 174/88 mmHg BP Sitting (Post-Dialysis) 159/72 mmHg Concurrent Access: falseAV Fistula Forearm (Left) Arterial BP Standing (Pre-Dialysis) 174/85 mmHg BP Standing (P ost-Dialysis) 152/73 mmHg Sitting Heart Rate Pre-Dialysis 76 BPM Sitting Heart Rate Post-Dialysis 71 BPM Standing Heart Rate Pre-Dialysis 77 BPM Standing Heart Rate Post-Dialysis 72 BPM Temperature Pre-Dialysis 97.9 degF Temperature Post -Dialysis 97 degF May 15, 2023 In-Center Hemodialysis Treatment [id number]:54:00.000Z 6699-14-91H00:55:38.000Z BP Sitting (Pre-Dialysis) 168/88 mmHg BP Sitting (Post-Dialysis) 148/71 mmHg Concurrent Access: falseAV Fistula Forearm (Left) Arterial BP Standing (Pre-Dialysis) 171/85 mmHg BP Standing (P ost-Dialysis) 147/69 mmHg Sitting Heart Rate Pre-Dialysis 82 BPM Sitting Heart Rate Post-Dialysis 68 BPM Standing Heart Rate Pre-Dialysis 79 BPM Standing Heart Rate Post-Dialysis 72 BPM Temperature Pre-Dialysis 98 degF Temperature Post -Dialysis 98 degF May 13, 2023 In-Center Hemodialysis Treatment [id number]:54:00.000Z [id number]:59:32.000Z BP Sitting (Pre-Dialysis) 177/86 mmHg BP Sitting (Post-Dialysis) 157/74 mmHg Concurrent Access: falseAV Fistula Forearm (Left) Arterial BP Standing (Pre-Dialysis) 172/86 mmHg BP Standing (P ost-Dialysis) 151/77 mmHg Sitting Heart Rate Pre-Dialysis 78 BPM Sitting Heart Rate Post-Dialysis 69 BPM Standing Heart Rate Pre-Dialysis 81 BPM Standing Heart Rate Post-Dialysis 71 BPM Temperature Pre-Dialysis 97.6 degF Temperature Post -Dialysis 97.6 degF May 10, 2023 In-Center Hemodialysis Treatment [id number]:53:00.000Z [id number]:02:06.000Z BP Sitting (Pre-Dialysis) 181/92 mmHg BP Sitting (Post-Dialysis) 175/82 mmHg Concurrent Access: falseAV Fistula Forearm (Left) Arterial BP Standing (Pre-Dialysis) 182/90 mmHg BP Standing (P ost-Dialysis) 177/78 mmHg Sitting Heart Rate Pre-Dialysis 78 BPM Sitting Heart Rate Post-Dialysis 69 BPM Standing Heart Rate Pre-Dialysis 79 BPM Standing Heart Rate Post-Dialysis 72 BPM Temperature Pre-Dialysis 97.6 degF Temperature Post -Dialysis 97.3 degF May 08, 2023 In-Center Hemodialysis Treatment [id number]:55:00.000Z 3466-51-63W91:04:06.000Z BP Sitting (Pre-Dialysis) 181/90 mmHg BP Sitting (Post-Dialysis) 161/78 mmHg Concurrent Access: falseAV Fistula Forearm (Left) Arterial BP Standing (Pre-Dialysis) 177/84 mmHg BP Standing (P ost-Dialysis) 164/77 mmHg Sitting Heart Rate Pre-Dialysis 78 BPM Sitting Heart Rate Post-Dialysis 69 BPM Standing Heart Rate Pre-Dialysis 80 BPM Standing Heart Rate Post-Dialysis 71 BPM Temperature Pre-Dialysis 97.6 degF Temperature Post -Dialysis 97.9 degF May 03, 2023 In-Center Hemodialysis Treatment [id number]:51:00.000Z 4687-55-61Z79:50:29.000Z BP Sitting (Pre-Dialysis) 168/85 mmHg BP Sitting (Post-Dialysis) 146/65 mmHg Concurrent Access: falseAV Fistula Forearm (Left) Arterial BP Standing (Pre-Dialysis) 172/78 mmHg BP Standing (P ost-Dialysis) 161/73 mmHg Sitting Heart Rate Pre-Dialysis 77 BPM Sitting Heart Rate Post-Dialysis 70 BPM Standing Heart Rate Pre-Dialysis 78 BPM Standing Heart Rate Post-Dialysis 71 BPM Temperature Pre-Dialysis 97 degF Temperature Post -Dialysis 97.8 degF May 01, 2023 In-Center Hemodialysis Treatment [id number]:54:00.000Z 1695-58-96O95:57:29.000Z BP Sitting (Pre-Dialysis) 176/86 mmHg BP Sitting (Post-Dialysis) 161/76 mmHg Concurrent Access: falseAV Fistula Forearm (Left) Arterial BP Standing (Pre-Dialysis) 184/82 mmHg BP Standing (P ost-Dialysis) 160/75 mmHg Sitting Heart Rate Pre-Dialysis 77 BPM Sitting Heart Rate Post-Dialysis 68 BPM Standing Heart Rate Pre-Dialysis 81 BPM Standing Heart Rate Post-Dialysis 71 BPM Temperature Pre-Dialysis 97.5 degF Temperature Post -Dialysis 97 degF April 29, 2023 In-Center Hemodialysis Treatment [id number]:55:00.000Z 5913-20-85E31:00:29.000Z BP Sitting (Pre-Dialysis) 175/88 mmHg BP Sitting (Post-Dialysis) 165/77 mmHg Concurrent Access: falseAV Fistula Forearm (Left) Arterial BP Standing (Pre-Dialysis) 171/81 mmHg Sitting Heart Rate Post-Dialysis 69 BPM Sitting Heart Rate Pre-Dialysis 76 BPM Temperatu re Post-Dialysis 97 degF Standing Heart Rate Pre-Dialysis 78 BPM Temperature Pre-Dialysis 97.6 degF April 26, 2023 In-Center Hemodialysis Treatment [id number]:54:44.000Z 9153-07-01X19:58:43.000Z BP Sitting (Pre-Dialysis) 188/94 mmHg BP Sitting (Post-Dialysis) 174/81 mmHg Concurrent Access: falseAV Fistula Forearm (Left) Arterial BP Standing (Pre-Dialysis) 185/90 mmHg BP Standing (P ost-Dialysis) 185/82 mmHg Sitting Heart Rate Pre-Dialysis 76 BPM Sitting Heart Rate Post-Dialysis 72 BPM Standing Heart Rate Pre-Dialysis 79 BPM Standing Heart Rate Post-Dialysis 74 BPM Temperature Pre-Dialysis 97.6 degF Temperature Post -Dialysis 97.6 degF April 24, 2023 In-Center Hemodialysis Treatment [id number]:52:54.000Z 4332-84-07T61:57:54.000Z BP Sitting (Pre-Dialysis) 173/96 mmHg BP Sitting (Post-Dialysis) 164/83 mmHg Concurrent Access: falseAV Fistula Forearm (Left) Arterial BP Standing (Pre-Dialysis) 171/83 mmHg BP Standing (P ost-Dialysis) 165/81 mmHg Sitting Heart Rate Pre-Dialysis 78 BPM Sitting Heart Rate Post-Dialysis 71 BPM Standing Heart Rate Pre-Dialysis 79 BPM Standing Heart Rate Post-Dialysis 74 BPM Temperature Pre-Dialysis 97.8 degF Temperature Post -Dialysis 97.6 degF April 22, 2023 In-Center Hemodialysis Treatment [id number]:58:54.000Z 5058-01-47G99:59:54.000Z BP Sitting (Pre-Dialysis) 171/87 mmHg BP Sitting (Post-Dialysis) 158/74 mmHg Concurrent Access: falseAV Fistula Forearm (Left) Arterial BP Standing (Pre-Dialysis) 172/84 mmHg BP Standing (P ost-Dialysis) 146/78 mmHg Sitting Heart Rate Pre-Dialysis 78 BPM Sitting Heart Rate Post-Dialysis 70 BPM Standing Heart Rate Pre-Dialysis 77 BPM Standing Heart Rate Post-Dialysis 73 BPM Temperature Pre-Dialysis 97.6 degF Temperature Post -Dialysis 98 degF April 19, 2023 In-Center Hemodialysis Treatment 9638-65-00D02:57:46.000Z 2801-89-66M15:58:46.000Z BP Sitting (Pre-Dialysis) 178/97 mmHg BP Sitting (Post-Dialysis) 171/82 mmHg Concurrent Access: falseAV Fistula Forearm (Left) Arterial BP Standing (Pre-Dialysis) 180/89 mmHg BP Standing (P ost-Dialysis) 164/79 mmHg Sitting Heart Rate Pre-Dialysis 79 BPM Sitting Heart Rate Post-Dialysis 72 BPM Standing Heart Rate Pre-Dialysis 80 BPM Standing Heart Rate Post-Dialysis 74 BPM Temperature Pre-Dialysis 97.3 degF Temperature Post -Dialysis 97.6 degF April 17, 2023 In-Center Hemodialysis Treatment [id number]:06:00.000Z 2514-52-21S38:11:47.000Z BP Sitting (Pre-Dialysis) 174/88 mmHg BP Sitting (Post-Dialysis) 169/86 mmHg Concurrent Access: falseAV Fistula Forearm (Left) Arterial BP Standing (Pre-Dialysis) 175/89 mmHg BP Standing (P ost-Dialysis) 163/79 mmHg Sitting Heart Rate Pre-Dialysis 80 BPM Sitting Heart Rate Post-Dialysis 70 BPM Standing Heart Rate Pre-Dialysis 80 BPM Standing Heart Rate Post-Dialysis 71 BPM Temperature Pre-Dialysis 97.9 degF Temperature Post -Dialysis 97 degF April 15, 2023 In-Center Hemodialysis Treatment [id number]:57:00.000Z 5298-58-35A65:01:44.000Z BP Sitting (Pre-Dialysis) 175/88 mmHg BP Sitting (Post-Dialysis) 163/81 mmHg Concurrent Access: falseAV Fistula Forearm (Left) Arterial BP Standing (Pre-Dialysis) 184/86 mmHg BP Standing (P ost-Dialysis) 140/71 mmHg Sitting Heart Rate Pre-Dialysis 75 BPM Sitting Heart Rate Post-Dialysis 69 BPM Standing Heart Rate Pre-Dialysis 75 BPM Standing Heart Rate Post-Dialysis 72 BPM Temperature Pre-Dialysis 97.6 degF Temperature Post -Dialysis 97.6 degF April 12, 2023 In-Center Hemodialysis Treatment 9315-75-17E02:57:43.000Z 6936-87-66V86:57:44.000Z BP Sitting (Pre-Dialysis) 175/87 mmHg BP Sitting (Post-Dialysis) 161/79 mmHg Concurrent Access: falseAV Fistula Forearm (Left) Arterial BP Standing (Pre-Dialysis) 174/82 mmHg BP Standing (P ost-Dialysis) 151/74 mmHg Sitting Heart Rate Pre-Dialysis 75 BPM Sitting Heart Rate Post-Dialysis 72 BPM Standing Heart Rate Pre-Dialysis 77 BPM Standing Heart Rate Post-Dialysis 75 BPM Temperature Pre-Dialysis 97.6 degF Temperature Post -Dialysis 97 degF April 10, 2023 In-Center Hemodialysis Treatment 3571-91-57U14:53:00.000Z [id number]:54:44.000Z BP Sitting (Pre-Dialysis) 178/88 mmHg BP Sitting (Post-Dialysis) 164/81 mmHg Concurrent Access: falseAV Fistula Forearm (Left) Arterial BP Standing (Pre-Dialysis) 169/83 mmHg BP Standing (P ost-Dialysis) 155/76 mmHg Sitting Heart Rate Pre-Dialysis 76 BPM Sitting Heart Rate Post-Dialysis 64 BPM Standing Heart Rate Pre-Dialysis 77 BPM Standing Heart Rate Post-Dialysis 71 BPM Temperature Pre-Dialysis 97.9 degF April 08, 2023 In-Center Hemodialysis Treatment [id number]:57:00.000Z 6838-04-65C84:00:17.000Z BP Sitting (Pre-Dialysis) 177/88 mmHg BP Sitting (Post-Dialysis) 166/84 mmHg Concurrent Access: falseAV Fistula Forearm (Left) Arterial BP Standing (Pre-Dialysis) 174/83 mmHg BP Standing (P ost-Dialysis) 174/80 mmHg Sitting Heart Rate Pre-Dialysis 71 BPM Sitting Heart Rate Post-Dialysis 68 BPM Standing Heart Rate Pre-Dialysis 74 BPM Standing Heart Rate Post-Dialysis 68 BPM Temperature Pre-Dialysis 97.6 degF Temperature Post -Dialysis 97.9 degF April 05, 2023 In-Center Hemodialysis Treatment [id number]:55:00.000Z [id number]:59:59.000Z BP Sitting (Pre-Dialysis) 175/85 mmHg BP Sitting (Post-Dialysis) 153/82 mmHg Concurrent Access: falseAV Fistula Forearm (Left) Arterial BP Standing (Pre-Dialysis) 169/87 mmHg BP Standing (P ost-Dialysis) 157/78 mmHg Sitting Heart Rate Pre-Dialysis 79 BPM Sitting Heart Rate Post-Dialysis 69 BPM Standing Heart Rate Pre-Dialysis 81 BPM Standing Heart Rate Post-Dialysis 70 BPM Temperature Pre-Dialysis 97.8 degF Temperature Post -Dialysis 97.6 degF April 03, 2023 In-Center Hemodialysis Treatment [id number]:57:59.000Z 8328-23-48K39:00:00.000Z BP Sitting (Pre-Dialysis) 169/87 mmHg BP Sitting (Post-Dialysis) 159/77 mmHg Concurrent Access: falseAV Fistula Forearm (Left) Arterial BP Standing (Pre-Dialysis) 172/85 mmHg BP Standing (P ost-Dialysis) 144/73 mmHg Sitting Heart Rate Pre-Dialysis 74 BPM Sitting Heart Rate Post-Dialysis 66 BPM Standing Heart Rate Pre-Dialysis 77 BPM Standing Heart Rate Post-Dialysis 71 BPM Temperature Pre-Dialysis 97.6 degF Temperature Post -Dialysis 97.6 degF April 01, 2023 In-Center Hemodialysis Treatment 7121-28-29O74:53:00.000Z [id number]:55:23.000Z BP Sitting (Pre-Dialysis) 184/94 mmHg BP Sitting (Post-Dialysis) 166/81 mmHg Concurrent Access: falseAV Fistula Forearm (Left) Arterial BP Standing (Pre-Dialysis) 185/94 mmHg BP Standing (P ost-Dialysis) 169/77 mmHg Sitting Heart Rate Pre-Dialysis 74 BPM Sitting Heart Rate Post-Dialysis 66 BPM Standing Heart Rate Pre-Dialysis 79 BPM Standing Heart Rate Post-Dialysis 69 BPM Temperature Pre-Dialysis 97.6 degF March 29, 2023 In-Center Hemodialysis Treatment [id number]:57:11.000Z 8580-48-04Y93:01:11.000Z BP Sitting (Pre-Dialysis) 182/89 mmHg BP Sitting (Post-Dialysis) 160/81 mmHg Concurrent Access: falseAV Fistula Forearm (Left) Arterial BP Standing (Pre-Dialysis) 181/89 mmHg BP Standing (P ost-Dialysis) 163/75 mmHg Sitting Heart Rate Pre-Dialysis 75 BPM Sitting Heart Rate Post-Dialysis 69 BPM Standing Heart Rate Pre-Dialysis 76 BPM Standing Heart Rate Post-Dialysis 70 BPM Temperature Pre-Dialysis 97.6 degF Temperature Post -Dialysis 97 degF March 27, 2023 In-Center Hemodialysis Treatment [id number]:52:00.000Z 0336-75-13F79:54:47.000Z BP Sitting (Pre-Dialysis) 182/95 mmHg BP Sitting (Post-Dialysis) 169/83 mmHg Concurrent Access: falseAV Fistula Forearm (Left) Arterial BP Standing (Pre-Dialysis) 182/87 mmHg BP Standing (P ost-Dialysis) 173/81 mmHg Sitting Heart Rate Pre-Dialysis 75 BPM Sitting Heart Rate Post-Dialysis 67 BPM Standing Heart Rate Pre-Dialysis 77 BPM Standing Heart Rate Post-Dialysis 70 BPM Temperature Pre-Dialysis 97.6 degF Temperature Post -Dialysis 97.6 degF March 25, 2023 In-Center Hemodialysis Treatment [id number]:54:00.000Z 0481-48-74I17:58:47.000Z BP Sitting (Pre-Dialysis) 179/83 mmHg BP Sitting (Post-Dialysis) 196/80 mmHg Concurrent Access: falseAV Fistula Forearm (Left) Arterial BP Standing (Pre-Dialysis) 179/96 mmHg Sitti ng Heart Rate Post-Dialysis 74 BPM Sitting Heart Rate Pre-Dialysis 75 BPM Temperatu re Post-Dialysis 97.6 degF Standing Heart Rate Pre-Dialysis 73 BPM Temperature Pre-Dialysis 97.9 degF March 22, 2023 In-Center Hemodialysis Treatment 1977-97-16S31:02:00.000Z 6079-54-92X08:06:15.000Z BP Sitting (Pre-Dialysis) 180/98 mmHg BP Sitting (Post-Dialysis) 163/85 mmHg Concurrent Access: falseAV Fistula Forearm (Left) Arterial BP Standing (Pre-Dialysis) 186/92 mmHg BP Standing (P ost-Dialysis) 151/74 mmHg Sitting Heart Rate Pre-Dialysis 78 BPM Sitting Heart Rate Post-Dialysis 70 BPM Standing Heart Rate Pre-Dialysis 78 BPM Standing Heart Rate Post-Dialysis 72 BPM Temperature Pre-Dialysis 97.9 degF Temperature Post -Dialysis 97.6 degF March 20, 2023 In-Center Hemodialysis Treatment [id number]:57:15.000Z 4199-77-21L68:58:16.000Z BP Sitting (Pre-Dialysis) 182/88 mmHg BP Sitting (Post-Dialysis) 163/86 mmHg Concurrent Access: falseAV Fistula Forearm (Left) Arterial BP Standing (Pre-Dialysis) 177/94 mmHg BP Standing (P ost-Dialysis) 142/74 mmHg Sitting Heart Rate Pre-Dialysis 75 BPM Sitting Heart Rate Post-Dialysis 67 BPM Standing Heart Rate Pre-Dialysis 76 BPM Standing Heart Rate Post-Dialysis 70 BPM Temperature Pre-Dialysis 97.6 degF Temperature Post -Dialysis 98 degF March 18, 2023 In-Center Hemodialysis Treatment 0244-43-01P01:52:00.000Z 7940-35-41W23:54:15.000Z BP Sitting (Pre-Dialysis) 189/95 mmHg BP Sitting (Post-Dialysis) 162/77 mmHg Concurrent Access: falseAV Fistula Forearm (Left) Arterial BP Standing (Pre-Dialysis) 186/90 mmHg Sitting Heart Rate Post-Dialysis 94 BPM Sitting Heart Rate Pre-Dialysis 75 BPM Temperatu re Post-Dialysis 97 degF Standing Heart Rate Pre-Dialysis 75 BPM Temperature Pre-Dialysis 97.6 degF March 15, 2023 In-Center Hemodialysis Treatment 5127-12-96Q86:56:00.000Z 8222-99-04M48:00:13.000Z BP Sitting (Pre-Dialysis) 195/91 mmHg BP Sitting (Post-Dialysis) 153/74 mmHg Concurrent Access: falseAV Fistula Forearm (Left) Arterial BP Standing (Pre-Dialysis) 180/91 mmHg BP Standing (P ost-Dialysis) 149/76 mmHg Sitting Heart Rate Pre-Dialysis 77 BPM Sitting Heart Rate Post-Dialysis 68 BPM Standing Heart Rate Pre-Dialysis 76 BPM Standing Heart Rate Post-Dialysis 71 BPM Temperature Pre-Dialysis 97.6 degF Temperature Post -Dialysis 97.8 degF March 13, 2023 In-Center Hemodialysis Treatment [id number]:57:00.000Z 5889-04-79S70:58:13.000Z BP Sitting (Pre-Dialysis) 185/91 mmHg BP Sitting (Post-Dialysis) 165/76 mmHg Concurrent Access: falseAV Fistula Forearm (Left) Arterial BP Standing (Pre-Dialysis) 184/91 mmHg BP Standing (P ost-Dialysis) 162/69 mmHg Sitting Heart Rate Pre-Dialysis 76 BPM Sitting Heart Rate Post-Dialysis 69 BPM Standing Heart Rate Pre-Dialysis 77 BPM Standing Heart Rate Post-Dialysis 72 BPM Temperature Pre-Dialysis 97.6 degF Temperature Post -Dialysis 97.6 degF March 11, 2023 In-Center Hemodialysis Treatment 0823-64-20R91:59:52.000Z 5673-27-30N03:58:52.000Z BP Sitting (Pre-Dialysis) 179/90 mmHg BP Sitting (Post-Dialysis) 193/82 mmHg Concurrent Access: falseAV Fistula Forearm (Left) Arterial BP Standing (Pre-Dialysis) 178/93 mmHg BP Standing (P ost-Dialysis) 179/82 mmHg Sitting Heart Rate Pre-Dialysis 81 BPM Sitting Heart Rate Post-Dialysis 69 BPM Standing Heart Rate Pre-Dialysis 80 BPM Standing Heart Rate Post-Dialysis 69 BPM Temperature Pre-Dialysis 98 degF Temperature Post -Dialysis 98 degF March 08, 2023 In-Center Hemodialysis Treatment 5414-23-76M99:55:11.000Z 3039-12-22C85:57:12.000Z BP Sitting (Pre-Dialysis) 177/94 mmHg BP Sitting (Post-Dialysis) 154/71 mmHg Concurrent Access: falseAV Fistula Forearm (Left) Arterial BP Standing (Pre-Dialysis) 164/83 mmHg BP Standing (P ost-Dialysis) 137/73 mmHg Sitting Heart Rate Pre-Dialysis 76 BPM Sitting Heart Rate Post-Dialysis 71 BPM Standing Heart Rate Pre-Dialysis 77 BPM Standing Heart Rate Post-Dialysis 72 BPM Temperature Pre-Dialysis 97.6 degF Temperature Post -Dialysis 97 degF March 06, 2023 In-Center Hemodialysis Treatment 0625-04-58L74:37:04.000Z 1297-51-23I87:31:04.000Z BP Sitting (Pre-Dialysis) 187/95 mmHg BP Sitting (Post-Dialysis) 167/80 mmHg Concurrent Access: falseAV Fistula Forearm (Left) Arterial BP Standing (Pre-Dialysis) 185/98 mmHg BP Standing (P ost-Dialysis) 159/79 mmHg Sitting Heart Rate Pre-Dialysis 78 BPM Sitting Heart Rate Post-Dialysis 69 BPM Standing Heart Rate Pre-Dialysis 76 BPM Standing Heart Rate Post-Dialysis 70 BPM Temperature Pre-Dialysis 97.6 degF Temperature Post -Dialysis 97.8 degF March 04, 2023 In-Center Hemodialysis Treatment [id number]:53:16.000Z 1021-71-45G86:53:40.000Z BP Sitting (Pre-Dialysis) 175/91 mmHg BP Sitting (Post-Dialysis) 86/60 mmHg Concurrent Access: falseAV Fistula Forearm (Left) Arterial BP Standing (Pre-Dialysis) 172/84 mmHg Sitting Heart Rate Post-Dialysis 58 BPM Sitting Heart Rate Pre-Dialysis 77 BPM Temperatu re Post-Dialysis 97 degF Standing Heart Rate Pre-Dialysis 75 BPM Temperature Pre-Dialysis 97.8 degF March 01, 2023 In-Center Hemodialysis Treatment 4621-01-53O84:00:00.000Z 5545-04-21M08:04:17.000Z BP Sitting (Pre-Dialysis) 177/86 mmHg BP Sitting (Post-Dialysis) 143/73 mmHg Concurrent Access: falseAV Fistula Forearm (Left) Arterial BP Standing (Pre-Dialysis) 165/87 mmHg Sitti ng Heart Rate Post-Dialysis 70 BPM Sitting Heart Rate Pre-Dialysis 74 BPM Temperatu re Post-Dialysis 98.1 degF Standing Heart Rate Pre-Dialysis 75 BPM Temperature Pre-Dialysis 97.6 degF February 27, 2023 In-Center Hemodialysis Treatment 1742-04-05W05:54:16.000Z 6695-88-86V93:52:17.000Z BP Sitting (Pre-Dialysis) 179/94 mmHg BP Sitting (Post-Dialysis) 157/78 mmHg Concurrent Access: falseAV Fistula Forearm (Left) Arterial BP Standing (Pre-Dialysis) 177/95 mmHg BP Standing (P ost-Dialysis) 166/78 mmHg Sitting Heart Rate Pre-Dialysis 74 BPM Sitting Heart Rate Post-Dialysis 69 BPM Standing Heart Rate Pre-Dialysis 73 BPM Standing Heart Rate Post-Dialysis 70 BPM Temperature Pre-Dialysis 97.6 degF Temperature Post -Dialysis 96.6 degF February 25, 2023 In-Center Hemodialysis Treatment 1823-32-35D01:02:16.000Z 0067-89-95T10:08:17.000Z BP Sitting (Pre-Dialysis) 172/91 mmHg BP Sitting (Post-Dialysis) 170/82 mmHg Concurrent Access: falseAV Fistula Forearm (Left) Arterial BP Standing (Pre-Dialysis) 165/85 mmHg BP Standing (P ost-Dialysis) 178/82 mmHg Sitting Heart Rate Pre-Dialysis 72 BPM Sitting Heart Rate Post-Dialysis 70 BPM Standing Heart Rate Pre-Dialysis 73 BPM Standing Heart Rate Post-Dialysis 70 BPM Temperature Pre-Dialysis 97.6 degF Temperature Post -Dialysis 97.8 degF February 22, 2023 In-Center Hemodialysis Treatment [id number]:54:00.000Z 7715-75-11I59:55:29.000Z BP Sitting (Pre-Dialysis) 170/89 mmHg BP Sitting (Post-Dialysis) 154/79 mmHg Concurrent Access: falseAV Fistula Forearm (Left) Arterial BP Standing (Pre-Dialysis) 163/85 mmHg BP Standing (P ost-Dialysis) 161/75 mmHg Sitting Heart Rate Pre-Dialysis 77 BPM Sitting Heart Rate Post-Dialysis 72 BPM Standing Heart Rate Pre-Dialysis 78 BPM Standing Heart Rate Post-Dialysis 73 BPM Temperature Pre-Dialysis 97.9 degF February 20, 2023 In-Center Hemodialysis Treatment 2352-46-63B97:01:00.000Z 1551-40-96K72:59:29.000Z BP Sitting (Pre-Dialysis) 166/87 mmHg BP Sitting (Post-Dialysis) 151/78 mmHg Concurrent Access: falseAV Fistula Forearm (Left) Arterial BP Standing (Pre-Dialysis) 180/91 mmHg Sitti ng Heart Rate Post-Dialysis 69 BPM Sitting Heart Rate Pre-Dialysis 66 BPM Temperatu re Post-Dialysis 97.9 degF Standing Heart Rate Pre-Dialysis 76 BPM Temperature Pre-Dialysis 97.8 degF February 18, 2023 In-Center Hemodialysis Treatment [id number]:00:00.000Z 2480-65-72N97:02:55.000Z BP Sitting (Pre-Dialysis) 180/89 mmHg BP Sitting (Post-Dialysis) 163/72 mmHg Concurrent Access: falseAV Fistula Forearm (Left) Arterial BP Standing (Pre-Dialysis) 164/85 mmHg BP Standing (P ost-Dialysis) 154/75 mmHg Sitting Heart Rate Pre-Dialysis 73 BPM Sitting Heart Rate Post-Dialysis 67 BPM Standing Heart Rate Pre-Dialysis 74 BPM Standing Heart Rate Post-Dialysis 70 BPM Temperature Pre-Dialysis 97.9 degF Temperature Post -Dialysis 97.3 degF February 15, 2023 In-Center Hemodialysis Treatment [id number]:59:00.000Z 8451-56-65V77:00:20.000Z BP Sitting (Pre-Dialysis) 170/84 mmHg BP Sitting (Post-Dialysis) 150/67 mmHg Concurrent Access: falseAV Fistula Forearm (Left) Arterial BP Standing (Pre-Dialysis) 173/85 mmHg BP Standing (P ost-Dialysis) 128/67 mmHg Sitting Heart Rate Pre-Dialysis 72 BPM Sitting Heart Rate Post-Dialysis 68 BPM Standing Heart Rate Pre-Dialysis 72 BPM Standing Heart Rate Post-Dialysis 74 BPM Temperature Pre-Dialysis 97.5 degF Temperature Post -Dialysis 97.6 degF February 13, 2023 In-Center Hemodialysis Treatment 8396-95-45R99:00:00.000Z 9166-95-50A70:02:58.000Z BP Sitting (Pre-Dialysis) 174/90 mmHg BP Sitting (Post-Dialysis) 161/84 mmHg Concurrent Access: falseAV Fistula Forearm (Left) Arterial BP Standing (Pre-Dialysis) 165/83 mmHg BP Standing (P ost-Dialysis) 163/79 mmHg Sitting Heart Rate Pre-Dialysis 74 BPM Sitting Heart Rate Post-Dialysis 68 BPM Standing Heart Rate Pre-Dialysis 75 BPM Standing Heart Rate Post-Dialysis 69 BPM Temperature Pre-Dialysis 97.7 degF Temperature Post -Dialysis 97.6 degF February 11, 2023 In-Center Hemodialysis Treatment [id number]:56:31.000Z 3416-00-39W63:58:31.000Z BP Sitting (Pre-Dialysis) 169/93 mmHg BP Sitting (Post-Dialysis) 164/89 mmHg Concurrent Access: falseAV Fistula Forearm (Left) Arterial BP Standing (Pre-Dialysis) 169/80 mmHg BP Standing (P ost-Dialysis) 159/80 mmHg Sitting Heart Rate Pre-Dialysis 75 BPM Sitting Heart Rate Post-Dialysis 80 BPM Standing Heart Rate Pre-Dialysis 74 BPM Standing Heart Rate Post-Dialysis 70 BPM Temperature Pre-Dialysis 97.6 degF Temperature Post -Dialysis 97.3 degF February 08, 2023 In-Center Hemodialysis Treatment [id number]:55:00.000Z 4655-01-71G20:00:30.000Z BP Sitting (Pre-Dialysis) 162/83 mmHg BP Sitting (Post-Dialysis) 180/82 mmHg Concurrent Access: falseAV Fistula Forearm (Left) Arterial BP Standing (Pre-Dialysis) 169/90 mmHg BP Standing (P ost-Dialysis) 179/82 mmHg Sitting Heart Rate Pre-Dialysis 72 BPM Sitting Heart Rate Post-Dialysis 65 BPM Standing Heart Rate Pre-Dialysis 74 BPM Standing Heart Rate Post-Dialysis 68 BPM Temperature Pre-Dialysis 97.6 degF Temperature Post -Dialysis 97.6 degF February 06, 2023 In-Center Hemodialysis Treatment 7241-08-28V44:58:00.000Z 2965-61-02T86:01:20.000Z BP Sitting (Pre-Dialysis) 178/92 mmHg BP Sitting (Post-Dialysis) 179/87 mmHg Concurrent Access: falseAV Fistula Forearm (Left) Arterial BP Standing (Pre-Dialysis) 178/87 mmHg BP Standing (P ost-Dialysis) 175/87 mmHg Sitting Heart Rate Pre-Dialysis 76 BPM Sitting Heart Rate Post-Dialysis 69 BPM Standing Heart Rate Pre-Dialysis 79 BPM Standing Heart Rate Post-Dialysis 69 BPM Temperature Pre-Dialysis 97.8 degF Temperature Post -Dialysis 97.8 degF February 04, 2023 In-Center Hemodialysis Treatment 1565-10-22Z52:55:19.000Z 0005-52-00C85:52:20.000Z BP Sitting (Pre-Dialysis) 167/87 mmHg BP Sitting (Post-Dialysis) 155/76 mmHg Concurrent Access: falseAV Fistula Forearm (Left) Arterial BP Standing (Pre-Dialysis) 162/82 mmHg BP Standing (P ost-Dialysis) 151/74 mmHg Sitting Heart Rate Pre-Dialysis 71 BPM Sitting Heart Rate Post-Dialysis 65 BPM Standing Heart Rate Pre-Dialysis 71 BPM Standing Heart Rate Post-Dialysis 67 BPM Temperature Pre-Dialysis 97.6 degF February 01, 2023 In-Center Hemodialysis Treatment [id number]:54:00.000Z 0439-39-50R12:56:45.000Z BP Sitting (Pre-Dialysis) 178/89 mmHg BP Sitting (Post-Dialysis) 172/83 mmHg Concurrent Access: falseAV Fistula Forearm (Left) Arterial BP Standing (Pre-Dialysis) 164/83 mmHg BP Standing (P ost-Dialysis) 175/81 mmHg Sitting Heart Rate Pre-Dialysis 77 BPM Sitting Heart Rate Post-Dialysis 66 BPM Standing Heart Rate Pre-Dialysis 76 BPM Standing Heart Rate Post-Dialysis 68 BPM Temperature Pre-Dialysis 97.8 degF Temperature Post -Dialysis 97.9 degF January 30, 2023 In-Center Hemodialysis Treatment [id number]:00:00.000Z [id number]:02:45.000Z BP Sitting (Pre-Dialysis) 172/87 mmHg BP Sitting (Post-Dialysis) 170/83 mmHg Concurrent Access: falseAV Fistula Forearm (Left) Arterial BP Standing (Pre-Dialysis) 170/89 mmHg BP Standing (P ost-Dialysis) 164/79 mmHg Sitting Heart Rate Pre-Dialysis 76 BPM Sitting Heart Rate Post-Dialysis 69 BPM Standing Heart Rate Pre-Dialysis 76 BPM Standing Heart Rate Post-Dialysis 71 BPM Temperature Pre-Dialysis 97.8 degF Temperature Post -Dialysis 97.6 degF January 29, 2023 Additional Day Of Dialysis Treatment [id number]:08:00.000Z 5837-03-95O57:38:15.000Z BP Sitting (Pre-Dialysis) 173/85 mmHg BP Sitting (Post-Dialysis) 169/42 mmHg Concurrent Access: falseAV Fistula Forearm (Left) Arterial BP Standing (Pre-Dialysis) 173/85 mmHg BP Standing (P ost-Dialysis) 145/67 mmHg Sitting Heart Rate Pre-Dialysis 83 BPM Sitting Heart Rate Post-Dialysis 68 BPM Standing Heart Rate Pre-Dialysis 83 BPM Standing Heart Rate Post-Dialysis 78 BPM Temperature Pre-Dialysis 97 degF Temperature Post -Dialysis 97 degF January 28, 2023 In-Center Hemodialysis Treatment [id number]:56:00.000Z 4981-26-96H17:00:46.000Z BP Sitting (Pre-Dialysis) 170/82 mmHg BP Sitting (Post-Dialysis) 151/84 mmHg Concurrent Access: falseAV Fistula Forearm (Left) Arterial BP Standing (Pre-Dialysis) 166/87 mmHg BP Standing (P ost-Dialysis) 161/77 mmHg Sitting Heart Rate Pre-Dialysis 73 BPM Sitting Heart Rate Post-Dialysis 67 BPM Standing Heart Rate Pre-Dialysis 77 BPM Standing Heart Rate Post-Dialysis 72 BPM Temperature Pre-Dialysis 98.1 degF Temperature Post -Dialysis 97.9 degF January 25, 2023 In-Center Hemodialysis Treatment 0316-03-75X56:52:00.000Z 2068-38-37A60:55:17.000Z BP Sitting (Pre-Dialysis) 179/91 mmHg BP Sitting (Post-Dialysis) 167/83 mmHg Concurrent Access: falseAV Fistula Forearm (Left) Arterial BP Standing (Pre-Dialysis) 176/94 mmHg BP Standing (P ost-Dialysis) 172/81 mmHg Sitting Heart Rate Pre-Dialysis 72 BPM Sitting Heart Rate Post-Dialysis 67 BPM Standing Heart Rate Pre-Dialysis 73 BPM Standing Heart Rate Post-Dialysis 69 BPM Temperature Pre-Dialysis 97.8 degF Temperature Post -Dialysis 97.9 degF January 23, 2023 In-Center Hemodialysis Treatment [id number]:55:00.000Z 8493-96-43W65:56:17.000Z BP Sitting (Pre-Dialysis) 167/87 mmHg BP Sitting (Post-Dialysis) 157/75 mmHg Concurrent Access: falseAV Fistula Forearm (Left) Arterial BP Standing (Pre-Dialysis) 160/83 mmHg BP Standing (P ost-Dialysis) 153/77 mmHg Sitting Heart Rate Pre-Dialysis 75 BPM Sitting Heart Rate Post-Dialysis 68 BPM Standing Heart Rate Pre-Dialysis 77 BPM Standing Heart Rate Post-Dialysis 72 BPM Temperature Pre-Dialysis 97.6 degF Temperature Post -Dialysis 97.6 degF January 21, 2023 In-Center Hemodialysis Treatment 1170-50-09Z54:55:00.000Z 0770-06-49L25:55:23.000Z BP Sitting (Pre-Dialysis) 158/83 mmHg BP Sitting (Post-Dialysis) 160/77 mmHg Concurrent Access: falseAV Fistula Forearm (Left) Arterial BP Standing (Pre-Dialysis) 151/82 mmHg BP Standing (P ost-Dialysis) 160/77 mmHg Sitting Heart Rate Pre-Dialysis 72 BPM Sitting Heart Rate Post-Dialysis 66 BPM Standing Heart Rate Pre-Dialysis 72 BPM Standing Heart Rate Post-Dialysis 70 BPM Temperature Pre-Dialysis 97.6 degF January 18, 2023 In-Center Hemodialysis Treatment [id number]:54:00.000Z 7275-90-60A78:58:19.000Z BP Sitting (Pre-Dialysis) 165/80 mmHg BP Sitting (Post-Dialysis) 161/82 mmHg Concurrent Access: falseAV Fistula Forearm (Left) Arterial BP Standing (Pre-Dialysis) 160/84 mmHg BP Standing (P ost-Dialysis) 166/76 mmHg Sitting Heart Rate Pre-Dialysis 73 BPM Sitting Heart Rate Post-Dialysis 68 BPM Standing Heart Rate Pre-Dialysis 72 BPM Standing Heart Rate Post-Dialysis 69 BPM Temperature Pre-Dialysis 97.6 degF Temperature Post -Dialysis 97.6 degF January 16, 2023 In-Center Hemodialysis Treatment [id number]:00:19.000Z 9864-96-02Q53:59:42.000Z BP Sitting (Pre-Dialysis) 158/82 mmHg BP Sitting (Post-Dialysis) 155/75 mmHg Concurrent Access: falseAV Fistula Forearm (Left) Arterial BP Standing (Pre-Dialysis) 153/75 mmHg BP Standing (P ost-Dialysis) 159/79 mmHg Sitting Heart Rate Pre-Dialysis 75 BPM Sitting Heart Rate Post-Dialysis 68 BPM Standing Heart Rate Pre-Dialysis 77 BPM Standing Heart Rate Post-Dialysis 71 BPM Temperature Pre-Dialysis 97.6 degF Temperature Post -Dialysis 97.6 degF January 14, 2023 In-Center Hemodialysis Treatment [id number]:56:00.000Z 2357-17-30A87:57:20.000Z BP Sitting (Pre-Dialysis) 177/88 mmHg BP Sitting (Post-Dialysis) 153/74 mmHg Concurrent Access: falseAV Fistula Forearm (Left) Arterial BP Standing (Pre-Dialysis) 175/87 mmHg BP Standing (P ost-Dialysis) 158/78 mmHg Sitting Heart Rate Pre-Dialysis 78 BPM Sitting Heart Rate Post-Dialysis 65 BPM Standing Heart Rate Pre-Dialysis 76 BPM Standing Heart Rate Post-Dialysis 75 BPM Temperature Pre-Dialysis 97.5 degF Temperature Post -Dialysis 97.6 degF January 11, 2023 In-Center Hemodialysis Treatment 7480-41-97M61:00:27.000Z 0529-43-11G00:03:27.000Z BP Sitting (Pre-Dialysis) 160/95 mmHg BP Sitting (Post-Dialysis) 159/77 mmHg Concurrent Access: falseAV Fistula Forearm (Left) Arterial BP Standing (Pre-Dialysis) 152/80 mmHg BP Standing (P ost-Dialysis) 163/81 mmHg Sitting Heart Rate Pre-Dialysis 76 BPM Sitting Heart Rate Post-Dialysis 70 BPM Standing Heart Rate Pre-Dialysis 80 BPM Standing Heart Rate Post-Dialysis 72 BPM Temperature Pre-Dialysis 97.6 degF Temperature Post -Dialysis 97.9 degF January 09, 2023 In-Center Hemodialysis Treatment [id number]:48:00.000Z 7932-12-55O84:46:27.000Z BP Sitting (Pre-Dialysis) 167/89 mmHg BP Sitting (Post-Dialysis) 166/81 mmHg Concurrent Access: falseAV Fistula Forearm (Left) Arterial BP Standing (Pre-Dialysis) 162/81 mmHg BP Standing (P ost-Dialysis) 162/78 mmHg Sitting Heart Rate Pre-Dialysis 83 BPM Sitting Heart Rate Post-Dialysis 69 BPM Standing Heart Rate Pre-Dialysis 79 BPM Standing Heart Rate Post-Dialysis 71 BPM Temperature Pre-Dialysis 97.4 degF Temperature Post -Dialysis 97.3 degF January 07, 2023 In-Center Hemodialysis Treatment [id number]:53:27.000Z 0130-96-13L72:51:27.000Z BP Sitting (Pre-Dialysis) 169/89 mmHg BP Sitting (Post-Dialysis) 162/83 mmHg Concurrent Access: falseAV Fistula Forearm (Left) Arterial BP Standing (Pre-Dialysis) 156/81 mmHg Sitti ng Heart Rate Post-Dialysis 72 BPM Sitting Heart Rate Pre-Dialysis 79 BPM Temperatu re Post-Dialysis 98.2 degF Standing Heart Rate Pre-Dialysis 80 BPM Temperature Pre-Dialysis 97.3 degF January 04, 2023 In-Center Hemodialysis Treatment [id number]:48:00.000Z 5752-08-84J91:48:16.000Z BP Sitting (Pre-Dialysis) 173/83 mmHg BP Sitting (Post-Dialysis) 154/81 mmHg Concurrent Access: falseAV Fistula Forearm (Left) Arterial BP Standing (Pre-Dialysis) 178/92 mmHg BP Standing (P ost-Dialysis) 161/79 mmHg Sitting Heart Rate Pre-Dialysis 82 BPM Sitting Heart Rate Post-Dialysis 75 BPM Standing Heart Rate Pre-Dialysis 84 BPM Standing Heart Rate Post-Dialysis 75 BPM Temperature Pre-Dialysis 98.1 degF Temperature Post -Dialysis 95.4 degF January 02, 2023 In-Center Hemodialysis Treatment [id number]:50:01.000Z 7714-51-66H34:50:01.000Z BP Sitting (Pre-Dialysis) 163/87 mmHg BP Sitting (Post-Dialysis) 166/76 mmHg Concurrent Access: falseAV Fistula Forearm (Left) Arterial BP Standing (Pre-Dialysis) 166/87 mmHg BP Standing (P ost-Dialysis) 163/76 mmHg Sitting Heart Rate Pre-Dialysis 79 BPM Sitting Heart Rate Post-Dialysis 70 BPM Standing Heart Rate Pre-Dialysis 79 BPM Standing Heart Rate Post-Dialysis 75 BPM Temperature Pre-Dialysis 97.9 degF Temperature Post -Dialysis 98.2 degF December 31, 2022 In-Center Hemodialysis Treatment [id number]:54:00.000Z 4130-65-22K80:53:16.000Z BP Sitting (Pre-Dialysis) 163/89 mmHg BP Sitting (Post-Dialysis) 158/63 mmHg Concurrent Access: falseAV Fistula Forearm (Left) Arterial BP Standing (Pre-Dialysis) 164/90 mmHg BP Standing (P ost-Dialysis) 159/79 mmHg Sitting Heart Rate Pre-Dialysis 78 BPM Sitting Heart Rate Post-Dialysis 74 BPM Standing Heart Rate Pre-Dialysis 80 BPM Standing Heart Rate Post-Dialysis 75 BPM Temperature Pre-Dialysis 97.8 degF Temperature Post -Dialysis 97.5 degF December 28, 2022 In-Center Hemodialysis Treatment 5901-18-83C94:53:00.000Z 8849-81-07X66:57:15.000Z BP Sitting (Pre-Dialysis) 162/83 mmHg BP Sitting (Post-Dialysis) 162/80 mmHg Concurrent Access: falseAV Fistula Forearm (Left) Arterial BP Standing (Pre-Dialysis) 160/78 mmHg BP Standing (P ost-Dialysis) 168/85 mmHg Sitting Heart Rate Pre-Dialysis 78 BPM Sitting Heart Rate Post-Dialysis 73 BPM Standing Heart Rate Pre-Dialysis 81 BPM Standing Heart Rate Post-Dialysis 76 BPM Temperature Pre-Dialysis 97.9 degF Temperature Post -Dialysis 97.3 degF December 26, 2022 In-Center Hemodialysis Treatment [id number]:50:00.000Z 0541-13-66D57:54:31.000Z BP Sitting (Pre-Dialysis) 175/97 mmHg BP Sitting (Post-Dialysis) 157/89 mmHg Concurrent Access: falseAV Fistula Forearm (Left) Arterial BP Standing (Pre-Dialysis) 176/95 mmHg BP Standing (P ost-Dialysis) 160/80 mmHg Sitting Heart Rate Pre-Dialysis 80 BPM Sitting Heart Rate Post-Dialysis 76 BPM Standing Heart Rate Pre-Dialysis 79 BPM Standing Heart Rate Post-Dialysis 76 BPM Temperature Pre-Dialysis 97 degF Temperature Post -Dialysis 97.7 degF December 24, 2022 In-Center Hemodialysis Treatment 5426-47-58J87:57:30.000Z 4710-09-81K40:55:31.000Z BP Sitting (Pre-Dialysis) 182/98 mmHg BP Sitting (Post-Dialysis) 168/88 mmHg Concurrent Access: falseAV Fistula Forearm (Left) Arterial BP Standing (Pre-Dialysis) 176/93 mmHg BP Standing (P ost-Dialysis) 171/80 mmHg Sitting Heart Rate Pre-Dialysis 79 BPM Sitting Heart Rate Post-Dialysis 73 BPM Standing Heart Rate Pre-Dialysis 80 BPM Standing Heart Rate Post-Dialysis 75 BPM Temperature Pre-Dialysis 97.6 degF Temperature Post -Dialysis 97.8 degF December 21, 2022 In-Center Hemodialysis Treatment [id number]:57:00.000Z 7232-04-83H03:51:00.000Z BP Sitting (Pre-Dialysis) 171/95 mmHg BP Sitting (Post-Dialysis) 150/76 mmHg Concurrent Access: falseAV Fistula Forearm (Left) Arterial BP Standing (Pre-Dialysis) 183/95 mmHg BP Standing (P ost-Dialysis) 149/74 mmHg Sitting Heart Rate Pre-Dialysis 79 BPM Sitting Heart Rate Post-Dialysis 76 BPM Standing Heart Rate Pre-Dialysis 80 BPM Standing Heart Rate Post-Dialysis 75 BPM Temperature Pre-Dialysis 97.6 degF Temperature Post -Dialysis 97.8 degF December 20, 2022 In-Center Hemodialysis Treatment 5737-67-03C21:58:00.000Z [id number]:00:09.000Z BP Sitting (Pre-Dialysis) 170/91 mmHg BP Sitting (Post-Dialysis) 155/86 mmHg Concurrent Access: falseAV Fistula Forearm (Left) Arterial BP Standing (Pre-Dialysis) 165/87 mmHg BP Standing (P ost-Dialysis) 176/90 mmHg Sitting Heart Rate Pre-Dialysis 78 BPM Sitting Heart Rate Post-Dialysis 71 BPM Standing Heart Rate Pre-Dialysis 81 BPM Standing Heart Rate Post-Dialysis 72 BPM Temperature Pre-Dialysis 97.6 degF Temperature Post -Dialysis 97.5 degF December 17, 2022 In-Center Hemodialysis Treatment [id number]:55:00.000Z 4610-81-15V73:56:41.000Z BP Sitting (Pre-Dialysis) 157/87 mmHg BP Sitting (Post-Dialysis) 159/81 mmHg Concurrent Access: falseAV Fistula Forearm (Left) Arterial BP Standing (Pre-Dialysis) 159/81 mmHg BP Standing (P ost-Dialysis) 163/80 mmHg Sitting Heart Rate Pre-Dialysis 81 BPM Sitting Heart Rate Post-Dialysis 73 BPM Standing Heart Rate Pre-Dialysis 82 BPM Standing Heart Rate Post-Dialysis 76 BPM Temperature Pre-Dialysis 97.8 degF Temperature Post -Dialysis 98.1 degF December 14, 2022 In-Center Hemodialysis Treatment [id number]:00:00.000Z 1600-44-92G54:02:58.000Z BP Sitting (Pre-Dialysis) 176/87 mmHg BP Sitting (Post-Dialysis) 166/81 mmHg Concurrent Access: falseAV Fistula Forearm (Left) Arterial BP Standing (Pre-Dialysis) 164/85 mmHg BP Standing (P ost-Dialysis) 174/85 mmHg Sitting Heart Rate Pre-Dialysis 80 BPM Sitting Heart Rate Post-Dialysis 75 BPM Standing Heart Rate Pre-Dialysis 82 BPM Standing Heart Rate Post-Dialysis 76 BPM Temperature Pre-Dialysis 97.8 degF Temperature Post -Dialysis 98 degF December 12, 2022 In-Center Hemodialysis Treatment [id number]:57:48.000Z 2366-86-80Q08:00:48.000Z BP Sitting (Pre-Dialysis) 166/85 mmHg BP Sitting (Post-Dialysis) 150/76 mmHg Concurrent Access: falseAV Fistula Forearm (Left) Arterial BP Standing (Pre-Dialysis) 155/73 mmHg BP Standing (P ost-Dialysis) 153/76 mmHg Sitting Heart Rate Pre-Dialysis 82 BPM Sitting Heart Rate Post-Dialysis 72 BPM Standing Heart Rate Pre-Dialysis 81 BPM Standing Heart Rate Post-Dialysis 78 BPM Temperature Pre-Dialysis 97.8 degF Temperature Post -Dialysis 98.1 degF December 10, 2022 In-Center Hemodialysis Treatment 6485-89-98E53:53:00.000Z 5610-78-13G06:57:14.000Z BP Sitting (Pre-Dialysis) 166/85 mmHg BP Sitting (Post-Dialysis) 158/80 mmHg Concurrent Access: falseAV Fistula Forearm (Left) Arterial BP Standing (Pre-Dialysis) 152/75 mmHg BP Standing (P ost-Dialysis) 152/79 mmHg Sitting Heart Rate Pre-Dialysis 78 BPM Sitting Heart Rate Post-Dialysis 73 BPM Standing Heart Rate Pre-Dialysis 79 BPM Standing Heart Rate Post-Dialysis 75 BPM Temperature Pre-Dialysis 97.8 degF December 07, 2022 In-Center Hemodialysis Treatment [id number]:58:00.000Z 0028-93-49I17:01:19.000Z BP Sitting (Pre-Dialysis) 180/91 mmHg BP Sitting (Post-Dialysis) 157/88 mmHg Concurrent Access: falseAV Fistula Forearm (Left) Arterial BP Standing (Pre-Dialysis) 178/91 mmHg BP Standing (P ost-Dialysis) 160/83 mmHg Sitting Heart Rate Pre-Dialysis 82 BPM Sitting Heart Rate Post-Dialysis 75 BPM Standing Heart Rate Pre-Dialysis 83 BPM Standing Heart Rate Post-Dialysis 78 BPM Temperature Pre-Dialysis 97.6 degF Temperature Post -Dialysis 97.6 degF December 05, 2022 In-Center Hemodialysis Treatment [id number]:00:18.000Z 1686-48-33A96:59:19.000Z BP Sitting (Pre-Dialysis) 162/88 mmHg BP Sitting (Post-Dialysis) 161/80 mmHg Concurrent Access: falseAV Fistula Forearm (Left) Arterial BP Standing (Pre-Dialysis) 153/86 mmHg BP Standing (P ost-Dialysis) 165/82 mmHg Sitting Heart Rate Pre-Dialysis 81 BPM Sitting Heart Rate Post-Dialysis 74 BPM Standing Heart Rate Pre-Dialysis 82 BPM Standing Heart Rate Post-Dialysis 78 BPM Temperature Pre-Dialysis 97.6 degF Temperature Post -Dialysis 97.6 degF December 03, 2022 In-Center Hemodialysis Treatment [id number]:57:00.000Z 4344-51-23L04:58:19.000Z BP Sitting (Pre-Dialysis) 158/79 mmHg BP Sitting (Post-Dialysis) 159/85 mmHg Concurrent Access: falseAV Fistula Forearm (Left) Arterial BP Standing (Pre-Dialysis) 172/88 mmHg BP Standing (P ost-Dialysis) 156/78 mmHg Sitting Heart Rate Pre-Dialysis 76 BPM Sitting Heart Rate Post-Dialysis 73 BPM Standing Heart Rate Pre-Dialysis 80 BPM Standing Heart Rate Post-Dialysis 74 BPM Temperature Pre-Dialysis 97.6 degF Temperature Post -Dialysis 97.6 degF November 30, 2022 In-Center Hemodialysis Treatment [id number]:55:00.000Z 8968-92-86T98:57:29.000Z BP Sitting (Pre-Dialysis) 166/86 mmHg BP Sitting (Post-Dialysis) 167/81 mmHg Concurrent Access: falseAV Fistula Forearm (Left) Arterial BP Standing (Pre-Dialysis) 162/89 mmHg BP Standing (P ost-Dialysis) 163/81 mmHg Sitting Heart Rate Pre-Dialysis 76 BPM Sitting Heart Rate Post-Dialysis 75 BPM Standing Heart Rate Pre-Dialysis 82 BPM Standing Heart Rate Post-Dialysis 76 BPM Temperature Pre-Dialysis 97.8 degF Temperature Post -Dialysis 97.9 degF November 28, 2022 In-Center Hemodialysis Treatment 2527-36-12L00:02:28.000Z 9283-98-47P39:02:29.000Z BP Sitting (Pre-Dialysis) 161/85 mmHg BP Sitting (Post-Dialysis) 155/80 mmHg Concurrent Access: falseAV Fistula Forearm (Left) Arterial BP Standing (Pre-Dialysis) 157/84 mmHg BP Standing (P ost-Dialysis) 160/78 mmHg Sitting Heart Rate Pre-Dialysis 80 BPM Sitting Heart Rate Post-Dialysis 75 BPM Standing Heart Rate Pre-Dialysis 80 BPM Standing Heart Rate Post-Dialysis 75 BPM Temperature Pre-Dialysis 97.8 degF Temperature Post -Dialysis 97.8 degF November 26, 2022 In-Center Hemodialysis Treatment [id number]:50:00.000Z 3652-24-82F13:50:28.000Z BP Sitting (Pre-Dialysis) 191/64 mmHg BP Sitting (Post-Dialysis) 157/77 mmHg Concurrent Access: falseAV Fistula Forearm (Left) Arterial BP Standing (Pre-Dialysis) 164/83 mmHg BP Standing (P ost-Dialysis) 163/78 mmHg Sitting Heart Rate Pre-Dialysis 74 BPM Sitting Heart Rate Post-Dialysis 71 BPM Standing Heart Rate Pre-Dialysis 78 BPM Standing Heart Rate Post-Dialysis 74 BPM Temperature Pre-Dialysis 98 degF Temperature Post -Dialysis 97.8 degF November 23, 2022 In-Center Hemodialysis Treatment 4154-49-25H79:55:42.000Z 9534-94-47B74:56:43.000Z BP Sitting (Pre-Dialysis) 163/87 mmHg BP Sitting (Post-Dialysis) 154/75 mmHg Concurrent Access: falseAV Fistula Forearm (Left) Arterial BP Standing (Pre-Dialysis) 156/83 mmHg BP Standing (P ost-Dialysis) 161/75 mmHg Sitting Heart Rate Pre-Dialysis 82 BPM Sitting Heart Rate Post-Dialysis 75 BPM Standing Heart Rate Pre-Dialysis 86 BPM Standing Heart Rate Post-Dialysis 76 BPM Temperature Pre-Dialysis 97.6 degF Temperature Post -Dialysis 97.6 degF November 21, 2022 In-Center Hemodialysis Treatment 9875-96-08N38:00:42.000Z 9825-92-05F89:01:43.000Z BP Sitting (Pre-Dialysis) 172/92 mmHg BP Sitting (Post-Dialysis) 165/80 mmHg Concurrent Access: falseAV Fistula Forearm (Left) Arterial BP Standing (Pre-Dialysis) 162/89 mmHg BP Standing (P ost-Dialysis) 162/82 mmHg Sitting Heart Rate Pre-Dialysis 83 BPM Sitting Heart Rate Post-Dialysis 76 BPM Standing Heart Rate Pre-Dialysis 83 BPM Standing Heart Rate Post-Dialysis 77 BPM Temperature Pre-Dialysis 97.7 degF Temperature Post -Dialysis 97.6 degF November 19, 2022 In-Center Hemodialysis Treatment [id number]:54:00.000Z 3512-96-29J74:56:43.000Z BP Sitting (Pre-Dialysis) 161/83 mmHg BP Sitting (Post-Dialysis) 154/78 mmHg Concurrent Access: falseAV Fistula Forearm (Left) Arterial BP Standing (Pre-Dialysis) 160/84 mmHg BP Standing (P ost-Dialysis) 159/76 mmHg Sitting Heart Rate Pre-Dialysis 86 BPM Sitting Heart Rate Post-Dialysis 82 BPM Standing Heart Rate Pre-Dialysis 86 BPM Standing Heart Rate Post-Dialysis 81 BPM Temperature Pre-Dialysis 97.6 degF November 16, 2022 In-Center Hemodialysis Treatment 5325-18-84B74:41:00.000Z 8135-89-37I50:43:36.000Z BP Sitting (Pre-Dialysis) 173/90 mmHg BP Sitting (Post-Dialysis) 158/82 mmHg Concurrent Access: falseAV Fistula Forearm (Left) Arterial BP Standing (Pre-Dialysis) 163/84 mmHg BP Standing (P ost-Dialysis) 158/77 mmHg Sitting Heart Rate Pre-Dialysis 84 BPM Sitting Heart Rate Post-Dialysis 75 BPM Standing Heart Rate Pre-Dialysis 85 BPM Standing Heart Rate Post-Dialysis 78 BPM Temperature Pre-Dialysis 98.1 degF Temperature Post -Dialysis 97.5 degF November 14, 2022 In-Center Hemodialysis Treatment 6212-29-40Q77:42:00.000Z 5597-48-90O23:47:36.000Z BP Sitting (Pre-Dialysis) 162/85 mmHg BP Sitting (Post-Dialysis) 154/80 mmHg Concurrent Access: falseAV Fistula Forearm (Left) Arterial BP Standing (Pre-Dialysis) 155/87 mmHg Sitting Heart Rate Post-Dialysis 74 BPM Sitting Heart Rate Pre-Dialysis 81 BPM Standing Heart Rate Pre-Dialysis 82 BPM Temperature Pre-Dialysis 98.2 degF November 12, 2022 In-Center Hemodialysis Treatment 9821-30-16I84:36:00.000Z 7165-43-22C51:39:36.000Z BP Sitting (Pre-Dialysis) 157/83 mmHg BP Sitting (Post-Dialysis) 159/77 mmHg Concurrent Access: falseAV Fistula Forearm (Left) Arterial BP Standing (Pre-Dialysis) 153/81 mmHg BP Standing (P ost-Dialysis) 156/79 mmHg Sitting Heart Rate Pre-Dialysis 81 BPM Sitting Heart Rate Post-Dialysis 74 BPM Standing Heart Rate Pre-Dialysis 82 BPM Standing Heart Rate Post-Dialysis 76 BPM Temperature Pre-Dialysis 97.5 degF Temperature Post -Dialysis 97.6 degF November 09, 2022 In-Center Hemodialysis Treatment 6830-14-21V27:45:00.000Z 3941-29-71N19:47:11.000Z BP Sitting (Pre-Dialysis) 162/89 mmHg BP Sitting (Post-Dialysis) 155/83 mmHg Concurrent Access: falseAV Fistula Forearm (Left) Arterial BP Standing (Pre-Dialysis) 157/82 mmHg BP Standing (P ost-Dialysis) 157/79 mmHg Sitting Heart Rate Pre-Dialysis 82 BPM Sitting Heart Rate Post-Dialysis 74 BPM Standing Heart Rate Pre-Dialysis 82 BPM Standing Heart Rate Post-Dialysis 78 BPM Temperature Pre-Dialysis 97.3 degF November 07, 2022 In-Center Hemodialysis Treatment [id number]:37:00.000Z 1453-12-85M68:40:11.000Z BP Sitting (Pre-Dialysis) 173/87 mmHg BP Sitting (Post-Dialysis) 158/83 mmHg Concurrent Access: falseAV Fistula Forearm (Left) Arterial BP Standing (Pre-Dialysis) 164/87 mmHg BP Standing (P ost-Dialysis) 163/80 mmHg Sitting Heart Rate Pre-Dialysis 86 BPM Sitting Heart Rate Post-Dialysis 78 BPM Standing Heart Rate Pre-Dialysis 86 BPM Standing Heart Rate Post-Dialysis 79 BPM Temperature Pre-Dialysis 97.6 degF Temperature Post -Dialysis 97.3 degF November 05, 2022 In-Center Hemodialysis Treatment 8865-81-18R64:44:00.000Z 3805-26-11H10:47:26.000Z BP Sitting (Pre-Dialysis) 176/87 mmHg BP Sitting (Post-Dialysis) 163/84 mmHg Concurrent Access: falseAV Fistula Forearm (Left) Arterial BP Standing (Pre-Dialysis) 172/91 mmHg BP Standing (P ost-Dialysis) 166/82 mmHg Sitting Heart Rate Pre-Dialysis 83 BPM Sitting Heart Rate Post-Dialysis 78 BPM Standing Heart Rate Pre-Dialysis 84 BPM Standing Heart Rate Post-Dialysis 80 BPM Temperature Pre-Dialysis 97.6 degF November 02, 2022 In-Center Hemodialysis Treatment [id number]:34:00.000Z 9768-08-27P29:33:46.000Z BP Sitting (Pre-Dialysis) 167/91 mmHg BP Sitting (Post-Dialysis) 160/75 mmHg Concurrent Access: falseAV Fistula Forearm (Left) Arterial BP Standing (Pre-Dialysis) 167/86 mmHg BP Standing (P ost-Dialysis) 151/78 mmHg Sitting Heart Rate Pre-Dialysis 82 BPM Sitting Heart Rate Post-Dialysis 78 BPM Standing Heart Rate Pre-Dialysis 82 BPM Standing Heart Rate Post-Dialysis 78 BPM Temperature Pre-Dialysis 97.6 degF Temperature Post -Dialysis 97.6 degF October 31, 2022 In-Center Hemodialysis Treatment [id number]:50:00.000Z 3077-33-55I57:52:46.000Z BP Sitting (Pre-Dialysis) 172/88 mmHg BP Sitting (Post-Dialysis) 159/81 mmHg Concurrent Access: falseAV Fistula Forearm (Left) Arterial BP Standing (Pre-Dialysis) 168/89 mmHg BP Standing (P ost-Dialysis) 160/80 mmHg Sitting Heart Rate Pre-Dialysis 81 BPM Sitting Heart Rate Post-Dialysis 79 BPM Standing Heart Rate Pre-Dialysis 82 BPM Standing Heart Rate Post-Dialysis 81 BPM Temperature Pre-Dialysis 97.8 degF Temperature Post -Dialysis 97.6 degF October 29, 2022 In-Center Hemodialysis Treatment [id number]:32:00.000Z 3008-11-54U50:38:46.000Z BP Sitting (Pre-Dialysis) 154/73 mmHg BP Sitting (Post-Dialysis) 151/76 mmHg Concurrent Access: falseAV Fistula Forearm (Left) Arterial BP Standing (Pre-Dialysis) 155/80 mmHg BP Standing (P ost-Dialysis) 153/77 mmHg Sitting Heart Rate Pre-Dialysis 82 BPM Sitting Heart Rate Post-Dialysis 79 BPM Standing Heart Rate Pre-Dialysis 81 BPM Standing Heart Rate Post-Dialysis 79 BPM Temperature Pre-Dialysis 97.8 degF Temperature Post -Dialysis 97.8 degF October 26, 2022 In-Center Hemodialysis Treatment [id number]:40:00.000Z 0935-15-79B90:41:18.000Z BP Sitting (Pre-Dialysis) 150/84 mmHg BP Sitting (Post-Dialysis) 155/80 mmHg Concurrent Access: falseAV Fistula Forearm (Left) Arterial BP Standing (Pre-Dialysis) 153/81 mmHg Sitti ng Heart Rate Post-Dialysis 80 BPM Sitting Heart Rate Pre-Dialysis 81 BPM Temperatu re Post-Dialysis 97.6 degF Standing Heart Rate Pre-Dialysis 81 BPM Temperature Pre-Dialysis 97.9 degF October 24, 2022 In-Center Hemodialysis Treatment 5729-83-46M32:36:00.000Z 5120-26-35O24:39:18.000Z BP Sitting (Pre-Dialysis) 162/87 mmHg BP Sitting (Post-Dialysis) 153/81 mmHg Concurrent Access: falseAV Fistula Forearm (Left) Arterial BP Standing (Pre-Dialysis) 157/83 mmHg BP Standing (P ost-Dialysis) 148/76 mmHg Sitting Heart Rate Pre-Dialysis 85 BPM Sitting Heart Rate Post-Dialysis 76 BPM Standing Heart Rate Pre-Dialysis 86 BPM Standing Heart Rate Post-Dialysis 78 BPM Temperature Pre-Dialysis 97.9 degF Temperature Post -Dialysis 97.9 degF October 22, 2022 In-Center Hemodialysis Treatment [id number]:45:00.000Z 4020-19-82E91:46:42.000Z BP Sitting (Pre-Dialysis) 171/89 mmHg BP Sitting (Post-Dialysis) 156/83 mmHg Concurrent Access: falseAV Fistula Forearm (Left) Arterial BP Standing (Pre-Dialysis) 158/83 mmHg Sitti ng Heart Rate Post-Dialysis 81 BPM Sitting Heart Rate Pre-Dialysis 87 BPM Temperatu re Post-Dialysis 97.8 degF Standing Heart Rate Pre-Dialysis 87 BPM Temperature Pre-Dialysis 97.9 degF October 19, 2022 In-Center Hemodialysis Treatment [id number]:50:00.000Z [id number]:35:50.000Z BP Sitting (Pre-Dialysis) 169/88 mmHg BP Sitting (Post-Dialysis) 162/83 mmHg Concurrent Access: falseAV Fistula Forearm (Left) Arterial BP Standing (Pre-Dialysis) 155/86 mmHg BP Standing (P ost-Dialysis) 158/76 mmHg Sitting Heart Rate Pre-Dialysis 85 BPM Sitting Heart Rate Post-Dialysis 79 BPM Standing Heart Rate Pre-Dialysis 87 BPM Standing Heart Rate Post-Dialysis 81 BPM Temperature Pre-Dialysis 97.6 degF Temperature Post -Dialysis 97.9 degF October 17, 2022 In-Center Hemodialysis Treatment 0023-07-15P76:38:00.000Z [id number]:38:15.000Z BP Sitting (Pre-Dialysis) 174/89 mmHg BP Sitting (Post-Dialysis) 149/66 mmHg Concurrent Access: falseAV Fistula Forearm (Left) Arterial BP Standing (Pre-Dialysis) 173/89 mmHg BP Standing (P ost-Dialysis) 154/76 mmHg Sitting Heart Rate Pre-Dialysis 86 BPM Sitting Heart Rate Post-Dialysis 81 BPM Standing Heart Rate Pre-Dialysis 87 BPM Standing Heart Rate Post-Dialysis 81 BPM Temperature Pre-Dialysis 97.6 degF Temperature Post -Dialysis 97.9 degF October 15, 2022 In-Center Hemodialysis Treatment [id number]:43:38.000Z [id number]:42:38.000Z BP Sitting (Pre-Dialysis) 168/87 mmHg BP Sitting (Post-Dialysis) 160/82 mmHg Concurrent Access: falseAV Fistula Forearm (Left) Arterial BP Standing (Pre-Dialysis) 167/86 mmHg BP Standing (P ost-Dialysis) 162/78 mmHg Sitting Heart Rate Pre-Dialysis 88 BPM Sitting Heart Rate Post-Dialysis 81 BPM Standing Heart Rate Pre-Dialysis 89 BPM Standing Heart Rate Post-Dialysis 82 BPM Temperature Pre-Dialysis 97.6 degF October 12, 2022 In-Center Hemodialysis Treatment 6927-03-67V91:37:00.000Z [id number]:40:09.000Z BP Sitting (Pre-Dialysis) 164/84 mmHg BP Sitting (Post-Dialysis) 154/80 mmHg Concurrent Access: falseAV Fistula Forearm (Left) Arterial BP Standing (Pre-Dialysis) 156/84 mmHg BP Standing (P ost-Dialysis) 156/79 mmHg Sitting Heart Rate Pre-Dialysis 86 BPM Sitting Heart Rate Post-Dialysis 81 BPM Standing Heart Rate Pre-Dialysis 88 BPM Standing Heart Rate Post-Dialysis 81 BPM Temperature Pre-Dialysis 98.1 degF Temperature Post -Dialysis 97.6 degF October 10, 2022 In-Center Hemodialysis Treatment [id number]:47:00.000Z 4769-15-52W36:50:09.000Z BP Sitting (Pre-Dialysis) 164/87 mmHg BP Sitting (Post-Dialysis) 150/81 mmHg Concurrent Access: falseAV Fistula Forearm (Left) Arterial BP Standing (Pre-Dialysis) 155/83 mmHg BP Standing (P ost-Dialysis) 157/73 mmHg Sitting Heart Rate Pre-Dialysis 90 BPM Sitting Heart Rate Post-Dialysis 80 BPM Standing Heart Rate Pre-Dialysis 90 BPM Standing Heart Rate Post-Dialysis 81 BPM Temperature Pre-Dialysis 97.6 degF Temperature Post -Dialysis 97.6 degF October 08, 2022 In-Center Hemodialysis Treatment [id number]:46:00.000Z 9701-58-16G35:45:09.000Z BP Sitting (Pre-Dialysis) 171/91 mmHg BP Sitting (Post-Dialysis) 157/82 mmHg Concurrent Access: falseAV Fistula Forearm (Left) Arterial BP Standing (Pre-Dialysis) 165/83 mmHg BP Standing (P ost-Dialysis) 154/78 mmHg Sitting Heart Rate Pre-Dialysis 93 BPM Sitting Heart Rate Post-Dialysis 81 BPM Standing Heart Rate Pre-Dialysis 93 BPM Standing Heart Rate Post-Dialysis 81 BPM Temperature Pre-Dialysis 97.8 degF Temperature Post -Dialysis 97 degF October 05, 2022 In-Center Hemodialysis Treatment [id number]:42:00.000Z 7455-87-19D83:40:29.000Z BP Sitting (Pre-Dialysis) 165/88 mmHg BP Sitting (Post-Dialysis) 159/76 mmHg Concurrent Access: falseAV Fistula Forearm (Left) Arterial BP Standing (Pre-Dialysis) 167/87 mmHg BP Standing (P ost-Dialysis) 158/78 mmHg Sitting Heart Rate Pre-Dialysis 84 BPM Sitting Heart Rate Post-Dialysis 78 BPM Standing Heart Rate Pre-Dialysis 84 BPM Standing Heart Rate Post-Dialysis 80 BPM Temperature Pre-Dialysis 97.6 degF Temperature Post -Dialysis 97.6 degF October 03, 2022 In-Center Hemodialysis Treatment [id number]:43:00.000Z 1026-37-95Z39:41:14.000Z BP Sitting (Pre-Dialysis) 170/87 mmHg BP Sitting (Post-Dialysis) 158/80 mmHg Concurrent Access: falseAV Fistula Forearm (Left) Arterial BP Standing (Pre-Dialysis) 155/84 mmHg Sitting Heart Rate Post-Dialysis 78 BPM Sitting Heart Rate Pre-Dialysis 90 BPM Temperatu re Post-Dialysis 97 degF Standing Heart Rate Pre-Dialysis 91 BPM Temperature Pre-Dialysis 97 degF October 01, 2022 In-Center Hemodialysis Treatment [id number]:52:33.000Z 1922-80-52R80:53:33.000Z BP Sitting (Pre-Dialysis) 165/85 mmHg BP Sitting (Post-Dialysis) 136/77 mmHg Concurrent Access: falseAV Fistula Forearm (Left) Arterial BP Standing (Pre-Dialysis) 165/81 mmHg Sitti ng Heart Rate Post-Dialysis 81 BPM Sitting Heart Rate Pre-Dialysis 86 BPM Temperatu re Post-Dialysis 97.8 degF Standing Heart Rate Pre-Dialysis 86 BPM Temperature Pre-Dialysis 97.8 degF September 28, 2022 In-Center Hemodialysis Treatment [id number]:41:31.000Z 3655-66-24I24:43:32.000Z BP Sitting (Pre-Dialysis) 165/85 mmHg BP Sitting (Post-Dialysis) 162/84 mmHg Concurrent Access: falseAV Fistula Forearm (Left) Arterial BP Standing (Pre-Dialysis) 165/82 mmHg Sitting Heart Rate Post-Dialysis 78 BPM Sitting Heart Rate Pre-Dialysis 86 BPM Standing Heart Rate Pre-Dialysis 87 BPM Temperature Pre-Dialysis 97.6 degF September 26, 2022 In-Center Hemodialysis Treatment [id number]:49:00.000Z 7416-88-02C47:49:32.000Z BP Sitting (Pre-Dialysis) 166/86 mmHg BP Sitting (Post-Dialysis) 166/82 mmHg Concurrent Access: falseAV Fistula Forearm (Left) Arterial BP Standing (Pre-Dialysis) 158/82 mmHg BP Standing (P ost-Dialysis) 163/79 mmHg Sitting Heart Rate Pre-Dialysis 85 BPM Sitting Heart Rate Post-Dialysis 76 BPM Standing Heart Rate Pre-Dialysis 87 BPM Standing Heart Rate Post-Dialysis 80 BPM Temperature Pre-Dialysis 97.8 degF September 24, 2022 In-Center Hemodialysis Treatment 7499-22-94P08:52:00.000Z 7815-69-79T77:55:32.000Z BP Sitting (Pre-Dialysis) 157/85 mmHg BP Sitting (Post-Dialysis) 152/80 mmHg Concurrent Access: falseAV Fistula Forearm (Left) Arterial BP Standing (Pre-Dialysis) 163/85 mmHg BP Standing (P ost-Dialysis) 149/80 mmHg Sitting Heart Rate Pre-Dialysis 84 BPM Sitting Heart Rate Post-Dialysis 81 BPM Standing Heart Rate Pre-Dialysis 83 BPM Standing Heart Rate Post-Dialysis 82 BPM Temperature Pre-Dialysis 97.6 degF September 21, 2022 In-Center Hemodialysis Treatment 4395-45-30I63:46:00.000Z [id number]:47:32.000Z BP Sitting (Pre-Dialysis) 159/86 mmHg BP Sitting (Post-Dialysis) 160/85 mmHg Concurrent Access: falseAV Fistula Forearm (Left) Arterial BP Standing (Pre-Dialysis) 151/78 mmHg BP Standing (P ost-Dialysis) 155/83 mmHg Sitting Heart Rate Pre-Dialysis 86 BPM Sitting Heart Rate Post-Dialysis 78 BPM Standing Heart Rate Pre-Dialysis 85 BPM Standing Heart Rate Post-Dialysis 80 BPM Temperature Pre-Dialysis 97.6 degF Temperature Post -Dialysis 97.9 degF September 19, 2022 In-Center Hemodialysis Treatment [id number]:47:00.000Z 3959-69-77A05:55:32.000Z BP Sitting (Pre-Dialysis) 163/85 mmHg BP Sitting (Post-Dialysis) 159/84 mmHg Concurrent Access: falseAV Fistula Forearm (Left) Arterial BP Standing (Pre-Dialysis) 155/84 mmHg BP Standing (P ost-Dialysis) 157/82 mmHg Sitting Heart Rate Pre-Dialysis 83 BPM Sitting Heart Rate Post-Dialysis 81 BPM Standing Heart Rate Pre-Dialysis 87 BPM Standing Heart Rate Post-Dialysis 81 BPM Temperature Pre-Dialysis 97.9 degF Temperature Post -Dialysis 97.6 degF September 17, 2022 In-Center Hemodialysis Treatment 9310-83-21G97:57:00.000Z 9862-39-00V29:01:29.000Z BP Sitting (Pre-Dialysis) 158/88 mmHg BP Sitting (Post-Dialysis) 146/76 mmHg Concurrent Access: falseAV Fistula Forearm (Left) Arterial BP Standing (Pre-Dialysis) 153/80 mmHg BP Standing (P ost-Dialysis) 127/67 mmHg Sitting Heart Rate Pre-Dialysis 86 BPM Sitting Heart Rate Post-Dialysis 79 BPM Standing Heart Rate Pre-Dialysis 86 BPM Standing Heart Rate Post-Dialysis 83 BPM Temperature Pre-Dialysis 98.1 degF Temperature Post -Dialysis 97.7 degF September 14, 2022 In-Center Hemodialysis Treatment 1955-11-03F77:38:00.000Z 5795-61-51N26:41:29.000Z BP Sitting (Pre-Dialysis) 160/80 mmHg BP Sitting (Post-Dialysis) 133/78 mmHg Concurrent Access: falseAV Fistula Forearm (Left) Arterial BP Standing (Pre-Dialysis) 143/60 mmHg BP Standing (P ost-Dialysis) 140/76 mmHg Sitting Heart Rate Pre-Dialysis 88 BPM Sitting Heart Rate Post-Dialysis 82 BPM Standing Heart Rate Pre-Dialysis 92 BPM Standing Heart Rate Post-Dialysis 83 BPM Temperature Pre-Dialysis 98.6 degF Temperature Post -Dialysis 97.6 degF September 13, 2022 In-Center Hemodialysis Treatment 7930-99-31U51:11:00.000Z 8640-83-84W87:43:54.000Z BP Sitting (Pre-Dialysis) 156/83 mmHg BP Sitting (Post-Dialysis) 152/80 mmHg Concurrent Access: falseAV Fistula Forearm (Left) Arterial BP Standing (Pre-Dialysis) 145/77 mmHg BP Standing (P ost-Dialysis) 150/75 mmHg Sitting Heart Rate Pre-Dialysis 88 BPM Sitting Heart Rate Post-Dialysis 79 BPM Standing Heart Rate Pre-Dialysis 89 BPM Standing Heart Rate Post-Dialysis 81 BPM Temperature Pre-Dialysis 97 degF Temperature Post -Dialysis 98.1 degF September 12, 2022 In-Center Hemodialysis Treatment 7698-28-47C90:19:00.000Z 3285-41-34V37:22:29.000Z BP Sitting (Pre-Dialysis) 153/82 mmHg BP Sitting (Post-Dialysis) 142/72 mmHg Concurrent Access: falseAV Fistula Forearm (Left) Arterial Sitting Heart Rate Pre-Dialysis 90 BPM BP Standing (Post-Dialysis) 165/83 mmHg Temperature Pre-Dialysis 97.6 degF Sitting Heart Ra te Post-Dialysis 82 BPM Standing Heart Rate Post-Sandra lysis 86 BPM Temperature Post-Dialysis 97 .4 degF September 10, 2022 In-Center Hemodialysis Treatment 3718-30-63L51:40:00.000Z 8840-59-81J13:48:29.000Z BP Sitting (Pre-Dialysis) 169/88 mmHg BP Sitting (Post-Dialysis) 157/81 mmHg Concurrent Access: falseAV Fistula Forearm (Left) Arterial BP Standing (Pre-Dialysis) 157/82 mmHg BP Standing (P ost-Dialysis) 151/79 mmHg Sitting Heart Rate Pre-Dialysis 88 BPM Sitting Heart Rate Post-Dialysis 79 BPM Standing Heart Rate Pre-Dialysis 89 BPM Standing Heart Rate Post-Dialysis 82 BPM Temperature Pre-Dialysis 97.4 degF Temperature Post -Dialysis 97.4 degF September 07, 2022 In-Center Hemodialysis Treatment 5203-06-04P47:41:40.000Z 7105-27-90T55:40:39.000Z BP Sitting (Pre-Dialysis) 159/82 mmHg BP Sitting (Post-Dialysis) 159/87 mmHg Concurrent Access: falseAV Fistula Forearm (Left) Arterial BP Standing (Pre-Dialysis) 178/88 mmHg Sitti ng Heart Rate Post-Dialysis 74 BPM Sitting Heart Rate Pre-Dialysis 85 BPM Temperatu re Post-Dialysis 97.6 degF Standing Heart Rate Pre-Dialysis 87 BPM Temperature Pre-Dialysis 98.1 degF September 05, 2022 In-Center Hemodialysis Treatment 3301-04-00P59:32:40.000Z 0802-36-17R56:34:40.000Z BP Sitting (Pre-Dialysis) 150/86 mmHg BP Sitting (Post-Dialysis) 137/76 mmHg Concurrent Access: falseAV Fistula Forearm (Left) Arterial BP Standing (Pre-Dialysis) 136/78 mmHg Sitti ng Heart Rate Post-Dialysis 73 BPM Sitting Heart Rate Pre-Dialysis 81 BPM Temperatu re Post-Dialysis 97.4 degF Standing Heart Rate Pre-Dialysis 85 BPM Temperature Pre-Dialysis 98 degF September 03, 2022 In-Center Hemodialysis Treatment 5793-15-14J31:06:39.000Z 3181-33-23Z60:07:40.000Z BP Sitting (Pre-Dialysis) 169/84 mmHg BP Sitting (Post-Dialysis) 151/81 mmHg Concurrent Access: falseAV Fistula Forearm (Left) Arterial BP Standing (Pre-Dialysis) 152/80 mmHg BP Standing (P ost-Dialysis) 163/89 mmHg Sitting Heart Rate Pre-Dialysis 83 BPM Sitting Heart Rate Post-Dialysis 76 BPM Standing Heart Rate Pre-Dialysis 85 BPM Standing Heart Rate Post-Dialysis 79 BPM Temperature Pre-Dialysis 97.8 degF Temperature Post -Dialysis 97.3 degF August 31, 2022 In-Center Hemodialysis Treatment [id number]:28:00.000Z 4096-93-29K01:30:28.000Z BP Sitting (Pre-Dialysis) 163/84 mmHg BP Sitting (Post-Dialysis) 155/78 mmHg Concurrent Access: falseAV Fistula Forearm (Left) Arterial BP Standing (Pre-Dialysis) 161/81 mmHg BP Standing (P ost-Dialysis) 150/71 mmHg Sitting Heart Rate Pre-Dialysis 84 BPM Sitting Heart Rate Post-Dialysis 75 BPM Standing Heart Rate Pre-Dialysis 86 BPM Standing Heart Rate Post-Dialysis 81 BPM Temperature Pre-Dialysis 97.6 degF Temperature Post -Dialysis 97.4 degF August 29, 2022 In-Center Hemodialysis Treatment [id number]:41:00.000Z 3956-31-59L64:42:29.000Z BP Sitting (Pre-Dialysis) 172/82 mmHg BP Sitting (Post-Dialysis) 160/80 mmHg Concurrent Access: falseAV Fistula Forearm (Left) Arterial BP Standing (Pre-Dialysis) 138/76 mmHg BP Standing (P ost-Dialysis) 148/71 mmHg Sitting Heart Rate Pre-Dialysis 85 BPM Sitting Heart Rate Post-Dialysis 72 BPM Standing Heart Rate Pre-Dialysis 88 BPM Standing Heart Rate Post-Dialysis 80 BPM Temperature Pre-Dialysis 97.9 degF Temperature Post -Dialysis 97.6 degF August 27, 2022 In-Center Hemodialysis Treatment [id number]:38:00.000Z 4905-76-10K76:40:29.000Z BP Sitting (Pre-Dialysis) 172/88 mmHg BP Sitting (Post-Dialysis) 189/83 mmHg Concurrent Access: falseAV Fistula Forearm (Left) Arterial BP Standing (Pre-Dialysis) 163/81 mmHg BP Standing (P ost-Dialysis) 164/78 mmHg Sitting Heart Rate Pre-Dialysis 82 BPM Sitting Heart Rate Post-Dialysis 79 BPM Standing Heart Rate Pre-Dialysis 88 BPM Standing Heart Rate Post-Dialysis 79 BPM Temperature Pre-Dialysis 97.3 degF Temperature Post -Dialysis 98 degF August 24, 2022 In-Center Hemodialysis Treatment 4730-20-45Z63:27:38.000Z 5774-45-68R21:35:38.000Z BP Sitting (Pre-Dialysis) 152/88 mmHg BP Sitting (Post-Dialysis) 163/86 mmHg Concurrent Access: falseAV Fistula Forearm (Left) Arterial BP Standing (Pre-Dialysis) 134/68 mmHg BP Standing (P ost-Dialysis) 171/78 mmHg Sitting Heart Rate Pre-Dialysis 84 BPM Sitting Heart Rate Post-Dialysis 78 BPM Standing Heart Rate Pre-Dialysis 85 BPM Standing Heart Rate Post-Dialysis 86 BPM Temperature Pre-Dialysis 97.5 degF Temperature Post -Dialysis 97.7 degF August 22, 2022 In-Center Hemodialysis Treatment 3126-70-31E13:43:00.000Z 4318-14-19X54:42:38.000Z BP Sitting (Pre-Dialysis) 175/93 mmHg BP Sitting (Post-Dialysis) 156/84 mmHg Concurrent Access: falseAV Fistula Forearm (Left) Arterial BP Standing (Pre-Dialysis) 159/79 mmHg BP Standing (P ost-Dialysis) 159/75 mmHg Sitting Heart Rate Pre-Dialysis 83 BPM Sitting Heart Rate Post-Dialysis 75 BPM Standing Heart Rate Pre-Dialysis 85 BPM Standing Heart Rate Post-Dialysis 78 BPM Temperature Pre-Dialysis 97.3 degF Temperature Post -Dialysis 97.7 degF August 20, 2022 In-Center Hemodialysis Treatment 3956-99-20E48:24:00.000Z 3681-16-44D30:37:38.000Z BP Sitting (Pre-Dialysis) 169/87 mmHg BP Sitting (Post-Dialysis) 155/82 mmHg Concurrent Access: falseAV Fistula Forearm (Left) Arterial BP Standing (Pre-Dialysis) 167/88 mmHg BP Standing (P ost-Dialysis) 168/84 mmHg Sitting Heart Rate Pre-Dialysis 86 BPM Sitting Heart Rate Post-Dialysis 74 BPM Standing Heart Rate Pre-Dialysis 85 BPM Standing Heart Rate Post-Dialysis 75 BPM Temperature Pre-Dialysis 97.2 degF Temperature Post -Dialysis 98 degF August 17, 2022 In-Center Hemodialysis Treatment [id number]:43:00.000Z 7762-00-83T96:47:25.000Z BP Sitting (Pre-Dialysis) 152/79 mmHg BP Sitting (Post-Dialysis) 158/83 mmHg Concurrent Access: falseAV Fistula Forearm (Left) Arterial BP Standing (Pre-Dialysis) 145/76 mmHg BP Standing (P ost-Dialysis) 160/81 mmHg Sitting Heart Rate Pre-Dialysis 81 BPM Sitting Heart Rate Post-Dialysis 72 BPM Standing Heart Rate Pre-Dialysis 82 BPM Standing Heart Rate Post-Dialysis 76 BPM Temperature Pre-Dialysis 97.7 degF Temperature Post -Dialysis 97.6 degF August 15, 2022 In-Center Hemodialysis Treatment 0439-34-30L74:26:00.000Z 2383-90-76O41:34:25.000Z BP Sitting (Pre-Dialysis) 168/83 mmHg BP Sitting (Post-Dialysis) 167/84 mmHg Concurrent Access: falseAV Fistula Forearm (Left) Arterial BP Standing (Pre-Dialysis) 143/83 mmHg BP Standing (P ost-Dialysis) 177/90 mmHg Sitting Heart Rate Pre-Dialysis 81 BPM Sitting Heart Rate Post-Dialysis 73 BPM Standing Heart Rate Pre-Dialysis 82 BPM Standing Heart Rate Post-Dialysis 73 BPM Temperature Pre-Dialysis 98 degF Temperature Post -Dialysis 97 degF August 13, 2022 In-Center Hemodialysis Treatment 2520-35-72Q97:43:00.000Z 9761-91-17U28:45:00.000Z BP Sitting (Pre-Dialysis) 157/83 mmHg BP Sitting (Post-Dialysis) 164/78 mmHg Concurrent Access: falseAV Fistula Forearm (Left) Arterial BP Standing (Pre-Dialysis) 146/84 mmHg BP Standing (P ost-Dialysis) 164/82 mmHg Sitting Heart Rate Pre-Dialysis 78 BPM Sitting Heart Rate Post-Dialysis 81 BPM Standing Heart Rate Pre-Dialysis 76 BPM Standing Heart Rate Post-Dialysis 85 BPM Temperature Pre-Dialysis 98.1 degF Temperature Post -Dialysis 97.1 degF August 10, 2022 In-Center Hemodialysis Treatment 8332-26-48L61:16:00.000Z [id number]:23:37.000Z BP Sitting (Pre-Dialysis) 171/99 mmHg BP Sitting (Post-Dialysis) 146/79 mmHg Concurrent Access: falseAV Fistula Forearm (Left) Arterial BP Standing (Pre-Dialysis) 150/80 mmHg BP Standing (P ost-Dialysis) 136/73 mmHg Sitting Heart Rate Pre-Dialysis 85 BPM Sitting Heart Rate Post-Dialysis 73 BPM Standing Heart Rate Pre-Dialysis 86 BPM Standing Heart Rate Post-Dialysis 77 BPM Temperature Pre-Dialysis 97.2 degF Temperature Post -Dialysis 97 degF August 08, 2022 In-Center Hemodialysis Treatment 1367-27-66I96:22:00.000Z 0304-13-55Y94:23:37.000Z BP Sitting (Pre-Dialysis) 170/90 mmHg BP Sitting (Post-Dialysis) 165/85 mmHg Concurrent Access: falseAV Fistula Forearm (Left) Arterial BP Standing (Pre-Dialysis) 164/84 mmHg BP Standing (P ost-Dialysis) 169/84 mmHg Sitting Heart Rate Pre-Dialysis 90 BPM Sitting Heart Rate Post-Dialysis 79 BPM Standing Heart Rate Pre-Dialysis 92 BPM Standing Heart Rate Post-Dialysis 81 BPM Temperature Pre-Dialysis 97.2 degF August 07, 2022 In-Center Hemodialysis Treatment [id number]:08:13.000Z 7201-05-11O84:11:14.000Z BP Sitting (Pre-Dialysis) 148/68 mmHg BP Sitting (Post-Dialysis) 151/81 mmHg Concurrent Access: falseAV Fistula Forearm (Left) Arterial BP Standing (Pre-Dialysis) 158/80 mmHg BP Standing (P ost-Dialysis) 158/77 mmHg Sitting Heart Rate Pre-Dialysis 81 BPM Sitting Heart Rate Post-Dialysis 79 BPM Standing Heart Rate Pre-Dialysis 80 BPM Standing Heart Rate Post-Dialysis 80 BPM Temperature Pre-Dialysis 97.9 degF Temperature Post -Dialysis 97.3 degF August 06, 2022 In-Center Hemodialysis Treatment 5772-69-04N11:23:00.000Z 3350-62-50M94:23:37.000Z BP Sitting (Pre-Dialysis) 102/74 mmHg BP Sitting (Post-Dialysis) 159/79 mmHg Concurrent Access: falseAV Fistula Forearm (Left) Arterial BP Standing (Pre-Dialysis) 160/79 mmHg BP Standing (P ost-Dialysis) 165/79 mmHg Sitting Heart Rate Pre-Dialysis 83 BPM Sitting Heart Rate Post-Dialysis 78 BPM Standing Heart Rate Pre-Dialysis 91 BPM Standing Heart Rate Post-Dialysis 81 BPM Temperature Pre-Dialysis 97.9 degF Temperature Post -Dialysis 97.5 degF August 03, 2022 In-Center Hemodialysis Treatment 7077-80-79K28:42:00.000Z [id number]:41:11.000Z BP Sitting (Pre-Dialysis) 181/82 mmHg BP Sitting (Post-Dialysis) 160/84 mmHg Concurrent Access: falseAV Fistula Forearm (Left) Arterial BP Standing (Pre-Dialysis) 154/79 mmHg BP Standing (P ost-Dialysis) 15/74 mmHg Sitting Heart Rate Pre-Dialysis 93 BPM Sitting Heart Rate Post-Dialysis 71 BPM Standing Heart Rate Pre-Dialysis 86 BPM Standing Heart Rate Post-Dialysis 77 BPM Temperature Pre-Dialysis 97.9 degF Temperature Post -Dialysis 97 degF August 01, 2022 In-Center Hemodialysis Treatment 9088-72-96C99:44:00.000Z 7168-39-64J27:46:11.000Z BP Sitting (Pre-Dialysis) 155/83 mmHg BP Sitting (Post-Dialysis) 148/77 mmHg Concurrent Access: falseAV Fistula Forearm (Left) Arterial BP Standing (Pre-Dialysis) 125/97 mmHg BP Standing (P ost-Dialysis) 156/81 mmHg Sitting Heart Rate Pre-Dialysis 84 BPM Sitting Heart Rate Post-Dialysis 84 BPM Standing Heart Rate Pre-Dialysis 91 BPM Standing Heart Rate Post-Dialysis 83 BPM Temperature Pre-Dialysis 97.5 degF Temperature Post -Dialysis 97.3 degF July 31, 2022 In-Center Hemodialysis Treatment [id number]:32:00.000Z 5269-19-34S43:10:33.000Z BP Sitting (Pre-Dialysis) 162/82 mmHg BP Sitting (Post-Dialysis) 162/81 mmHg Concurrent Access: falseAV Fistula Forearm (Left) Arterial BP Standing (Pre-Dialysis) 163/81 mmHg BP Standing (P ost-Dialysis) 154/77 mmHg Sitting Heart Rate Pre-Dialysis 81 BPM Sitting Heart Rate Post-Dialysis 77 BPM Standing Heart Rate Pre-Dialysis 84 BPM Standing Heart Rate Post-Dialysis 78 BPM Temperature Pre-Dialysis 97.9 degF Temperature Post -Dialysis 97.9 degF July 30, 2022 In-Center Hemodialysis Treatment [id number]:35:00.000Z [id number]:40:11.000Z BP Sitting (Pre-Dialysis) 158/87 mmHg BP Sitting (Post-Dialysis) 150/85 mmHg Concurrent Access: falseAV Fistula Forearm (Left) Arterial BP Standing (Pre-Dialysis) 143/74 mmHg Sitting Heart Rate Post-Dialysis 78 BPM Sitting Heart Rate Pre-Dialysis 83 BPM Temperatu re Post-Dialysis 98 degF Standing Heart Rate Pre-Dialysis 85 BPM Temperature Pre-Dialysis 98.2 degF July 27, 2022 In-Center Hemodialysis Treatment 2006-14-27U15:42:00.000Z 4943-43-37A46:46:22.000Z BP Sitting (Pre-Dialysis) 159/82 mmHg BP Sitting (Post-Dialysis) 153/77 mmHg Concurrent Access: falseAV Fistula Forearm (Left) Arterial BP Standing (Pre-Dialysis) 138/75 mmHg BP Standing (P ost-Dialysis) 155/76 mmHg Sitting Heart Rate Pre-Dialysis 84 BPM Sitting Heart Rate Post-Dialysis 73 BPM Standing Heart Rate Pre-Dialysis 85 BPM Standing Heart Rate Post-Dialysis 79 BPM Temperature Pre-Dialysis 97.3 degF Temperature Post -Dialysis 97.1 degF July 25, 2022 In-Center Hemodialysis Treatment 9875-45-53V27:26:00.000Z 0787-21-08J33:28:22.000Z BP Sitting (Pre-Dialysis) 174/93 mmHg BP Sitting (Post-Dialysis) 165/84 mmHg Concurrent Access: falseAV Fistula Forearm (Left) Arterial BP Standing (Pre-Dialysis) 150/78 mmHg BP Standing (P ost-Dialysis) 163/83 mmHg Sitting Heart Rate Pre-Dialysis 79 BPM Sitting Heart Rate Post-Dialysis 76 BPM Standing Heart Rate Pre-Dialysis 82 BPM Standing Heart Rate Post-Dialysis 78 BPM Temperature Pre-Dialysis 97.4 degF Temperature Post -Dialysis 97.3 degF July 23, 2022 In-Center Hemodialysis Treatment 3993-80-04T51:10:00.000Z 9142-32-29L24:19:22.000Z BP Sitting (Pre-Dialysis) 169/93 mmHg BP Sitting (Post-Dialysis) 165/82 mmHg Concurrent Access: falseAV Fistula Forearm (Left) Arterial BP Standing (Pre-Dialysis) 158/92 mmHg BP Standing (P ost-Dialysis) 157/90 mmHg Sitting Heart Rate Pre-Dialysis 83 BPM Sitting Heart Rate Post-Dialysis 74 BPM Standing Heart Rate Pre-Dialysis 86 BPM Standing Heart Rate Post-Dialysis 79 BPM Temperature Pre-Dialysis 97.3 degF Temperature Post -Dialysis 97.1 degF July 20, 2022 In-Center Hemodialysis Treatment 4977-33-90Y52:10:00.000Z 9234-90-63I40:13:22.000Z BP Sitting (Pre-Dialysis) 171/99 mmHg BP Sitting (Post-Dialysis) 166/89 mmHg Concurrent Access: falseAV Fistula Forearm (Left) Arterial BP Standing (Pre-Dialysis) 170/86 mmHg BP Standing (P ost-Dialysis) 164/84 mmHg Sitting Heart Rate Pre-Dialysis 81 BPM Sitting Heart Rate Post-Dialysis 72 BPM Standing Heart Rate Pre-Dialysis 83 BPM Standing Heart Rate Post-Dialysis 77 BPM Temperature Pre-Dialysis 97.9 degF Temperature Post -Dialysis 97.1 degF July 18, 2022 In-Center Hemodialysis Treatment [id number]:49:00.000Z 2315-70-29W46:54:15.000Z BP Sitting (Pre-Dialysis) 166/89 mmHg BP Sitting (Post-Dialysis) 147/76 mmHg Concurrent Access: falseAV Fistula Forearm (Left) Arterial BP Standing (Pre-Dialysis) 161/82 mmHg BP Standing (P ost-Dialysis) 151/71 mmHg Sitting Heart Rate Pre-Dialysis 88 BPM Sitting Heart Rate Post-Dialysis 75 BPM Standing Heart Rate Pre-Dialysis 89 BPM Standing Heart Rate Post-Dialysis 79 BPM Temperature Pre-Dialysis 97.2 degF Temperature Post -Dialysis 98.1 degF July 16, 2022 In-Center Hemodialysis Treatment [id number]:54:00.000Z 7495-13-36M07:07:22.000Z BP Sitting (Pre-Dialysis) 161/79 mmHg BP Sitting (Post-Dialysis) 16/78 mmHg Concurrent Access: falseAV Fistula Forearm (Left) Arterial BP Standing (Pre-Dialysis) 182/91 mmHg BP Standing (P ost-Dialysis) 151/76 mmHg Sitting Heart Rate Pre-Dialysis 83 BPM Sitting Heart Rate Post-Dialysis 68 BPM Standing Heart Rate Pre-Dialysis 81 BPM Standing Heart Rate Post-Dialysis 75 BPM Temperature Pre-Dialysis 97.5 degF Temperature Post -Dialysis 97.1 degF July 13, 2022 In-Center Hemodialysis Treatment [id number]:17:00.000Z [id number]:19:55.000Z BP Sitting (Pre-Dialysis) 176/92 mmHg BP Sitting (Post-Dialysis) 172/114 mmHg Concurrent Access: falseAV Fistula Forearm (Left) Arterial BP Standing (Pre-Dialysis) 167/92 mmHg BP Standing (P ost-Dialysis) 166/79 mmHg Sitting Heart Rate Pre-Dialysis 83 BPM Sitting Heart Rate Post-Dialysis 78 BPM Standing Heart Rate Pre-Dialysis 83 BPM Standing Heart Rate Post-Dialysis 68 BPM Temperature Pre-Dialysis 97.1 degF Temperature Post -Dialysis 97.3 degF July 11, 2022 In-Center Hemodialysis Treatment [id number]:05:55.000Z 1058-03-89L28:10:55.000Z BP Sitting (Pre-Dialysis) 164/82 mmHg BP Sitting (Post-Dialysis) 171/87 mmHg Concurrent Access: falseAV Fistula Forearm (Left) Arterial BP Standing (Pre-Dialysis) 164/82 mmHg BP Standing (P ost-Dialysis) 164/87 mmHg Sitting Heart Rate Pre-Dialysis 80 BPM Sitting Heart Rate Post-Dialysis 68 BPM Standing Heart Rate Pre-Dialysis 81 BPM Standing Heart Rate Post-Dialysis 77 BPM Temperature Pre-Dialysis 97.4 degF July 09, 2022 In-Center Hemodialysis Treatment [id number]:11:54.000Z [id number]:17:55.000Z BP Sitting (Pre-Dialysis) 106/64 mmHg BP Sitting (Post-Dialysis) 176/98 mmHg Concurrent Access: falseAV Fistula Forearm (Left) Arterial BP Standing (Pre-Dialysis) 139/62 mmHg BP Standing (P ost-Dialysis) 180/86 mmHg Sitting Heart Rate Pre-Dialysis 52 BPM Sitting Heart Rate Post-Dialysis 76 BPM Standing Heart Rate Pre-Dialysis 85 BPM Standing Heart Rate Post-Dialysis 77 BPM Temperature Pre-Dialysis 97.3 degF Temperature Post -Dialysis 97.4 degF July 06, 2022 In-Center Hemodialysis Treatment [id number]:18:00.000Z [id number]:26:06.000Z BP Sitting (Pre-Dialysis) 187/91 mmHg BP Sitting (Post-Dialysis) 173/84 mmHg Concurrent Access: falseAV Fistula Forearm (Left) Arterial BP Standing (Pre-Dialysis) 174/86 mmHg BP Standing (P ost-Dialysis) 165/82 mmHg Sitting Heart Rate Pre-Dialysis 83 BPM Sitting Heart Rate Post-Dialysis 73 BPM Standing Heart Rate Pre-Dialysis 85 BPM Standing Heart Rate Post-Dialysis 81 BPM Temperature Pre-Dialysis 97.3 degF Temperature Post -Dialysis 98.6 degF July 04, 2022 In-Center Hemodialysis Treatment [id number]:29:00.000Z [id number]:30:15.000Z BP Sitting (Pre-Dialysis) 164/86 mmHg BP Sitting (Post-Dialysis) 145/119 mmHg Concurrent Access: falseAV Fistula Forearm (Left) Arterial BP Standing (Pre-Dialysis) 172/82 mmHg BP Standing (P ost-Dialysis) 169/80 mmHg Sitting Heart Rate Pre-Dialysis 84 BPM Sitting Heart Rate Post-Dialysis 38 BPM Standing Heart Rate Pre-Dialysis 85 BPM Standing Heart Rate Post-Dialysis 81 BPM Temperature Pre-Dialysis 97.7 degF Temperature Post -Dialysis 97.3 degF July 02, 2022 In-Center Hemodialysis Treatment [id number]:50:00.000Z [id number]:52:15.000Z BP Sitting (Pre-Dialysis) 181/85 mmHg BP Sitting (Post-Dialysis) 172/81 mmHg Concurrent Access: falseAV Fistula Forearm (Left) Arterial BP Standing (Pre-Dialysis) 173/86 mmHg BP Standing (P ost-Dialysis) 180/81 mmHg Sitting Heart Rate Pre-Dialysis 82 BPM Sitting Heart Rate Post-Dialysis 76 BPM Standing Heart Rate Pre-Dialysis 82 BPM Standing Heart Rate Post-Dialysis 79 BPM Temperature Pre-Dialysis 97.3 degF Temperature Post -Dialysis 97.4 degF DIALYSIS ORDER Dialysis Procedure Orders Type of Dialysis Procedure Order Order Date/Time Observations In-Center Hemodialysis Treatment October Target Weight 105 kg Dialysate Flow Rate 500 mL/min Blood Flow Rate 450 mL/min Treatment Time 240 min(total) Max UF Rate 13 mL/kg/hr Base Sodium Dialysate Base Sodium 138 mE q/L dialysate_temp 36.5 C BiCarb Dialysate BiCarbonate 36 mEq/L Access Concurrent No Arterial Access AV Fistula (Forearm (Left)) Venous Access AV Fistula (Forearm (Left)) Arterial Needle Display SALVADOR MCADAMS, 15 G x 1, [place] , TWIN Venous Needle SALVADOR MCADAMS, 15G x 1, [place] , TWIN Dialyzer Nipro Elisio 15H 126 4 treatment_[email or web address] Dialysate Bath Potassium Potassium 2 mEq /L Dialysate Bath Calcium Calcium 2.5 mEq/L Results Adequacy Description Draw Date Result/Unit Status Ref Range Result Comments LENGTH OF DIALYSIS 2025-01-21 22:40:08 237 min F Dialyzer MAGAN 2025-01-21 22:40:08 1264 Calc F WEIGHT - POST DAY 1 2025-01-21 22:40:08 109.3 kg F WEIGHT - PRE DAY 1 2025-01-21 22:40:08 114.6 kg F HEIGHT IN INCHES 2025-01-21 22:40:08 72 Inches F VT (KT/V TX VOL) 2025-01-21 22:40:08 48.2 L F VM (KT/V MEAN VOL) 2025-01-21 22:40:08 49.2 F TBW (Valentin) 2025-01-21 22:40:08 54.46 Liters F stdKt/V (DIAL) 2025-01-21 22:40:08 N/A F stdKT/V Total 2025-01-21 22:40:08 N/A F URR% 2025-01-21 22:40:08 67 % F DIALYZER FLOW-QD 2025-01-21 22:40:08 500 mL/min F PATIENT AGE 2025-01-21 22:40:08 44 Years F BSA CELENA 2025-01-21 22:40:08 2.27 sq m F WEIGHT (KG) 2025-01-21 22:40:08 105 kg F PRESCRIBED DAYS/WEEK 2025-01-21 22:40:08 3 Day/Wk F KT/V PRESCRIBED 2025-01-21 22:40:08 1.53 F Residual kt/v 2025-01-21 22:40:08 F Total Kt/V 2025-01-21 22:40:08 1.39 F nPCR 2025-01-21 22:40:08 1.02 G/KG/D F spKt/V 2025-01-21 22:40:08 1.39 F AMPUTATE FACTOR 2025-01-21 22:40:08 0 F eKt/V 2025-01-21 22:40:08 1.2 F Std Renal KT/V 2025-01-21 22:40:08 N/A F TOTAL HOURS/WEEK DIALYSIS 2025-01-21 22:40:08 11 hrs F BLOOD FLOW-QWB 2025-01-21 22:40:08 439 F CURRENT KRU 2025-01-21 22:40:08 F Urea nitrogen [Mass/volume] in Serum or Plasma 2025-01-21 22:38:18 51 mg/dL F 9.0-23.0 Urea nitrogen [Mass/volume] in Serum or Plasma --post dialysis 2025-01-21 20:06:21 17 mg/dL F 9.0-23.0 Creatinine [Mass/volume] in Serum or Plasma 2024-12-31 16:48:18 9.53 mg/dL F 0.7-1.3 URR% 2024-12-25 04:22:15 68 % F Dialyzer MAGAN 2024-12-25 04:22:15 1264 Calc F DIALYZER FLOW-QD 2024-12-25 04:22:15 500 mL/min F LENGTH OF DIALYSIS 2024-12-25 04:22:15 239 min F WEIGHT - POST DAY 1 2024-12-25 04:22:15 108.1 kg F VT (KT/V TX VOL) 2024-12-25 04:22:15 47.9 L F KT/V PRESCRIBED 2024-12-25 04:22:15 1.55 F AMPUTATE FACTOR 2024-12-25 04:22:15 0 F stdKt/V (DIAL) 2024-12-25 04:22:15 N/A F stdKT/V Total 2024-12-25 04:22:15 N/A F eKt/V 2024-12-25 04:22:15 1.23 F TOTAL HOURS/WEEK DIALYSIS 2024-12-25 04:22:15 11 hrs F PATIENT AGE 2024-12-25 04:22:15 44 Years F BSA CELENA 2024-12-25 04:22:15 2.27 sq m F HEIGHT IN INCHES 2024-12-25 04:22:15 72 Inches F WEIGHT - PRE DAY 1 2024-12-25 04:22:15 113.4 kg F WEIGHT (KG) 2024-12-25 04:22:15 105 kg F PRESCRIBED DAYS/WEEK 2024-12-25 04:22:15 3 Day/Wk F VM (KT/V MEAN VOL) 2024-12-25 04:22:15 49.5 F Residual kt/v 2024-12-25 04:22:15 F Total Kt/V 2024-12-25 04:22:15 1.43 F nPCR 2024-12-25 04:22:15 0.84 G/KG/D F spKt/V 2024-12-25 04:22:15 1.43 F TBW (Valentin) 2024-12-25 04:22:15 54.05 Liters F Std Renal KT/V 2024-12-25 04:22:15 N/A F BLOOD FLOW-QWB 2024-12-25 04:22:15 450 F CURRENT KRU 2024-12-25 04:22:15 F Urea nitrogen [Mass/volume] in Serum or Plasma 2024-12-25 04:20:23 40 mg/dL F 9.0-23.0 Urea nitrogen [Mass/volume] in Serum or Plasma --post dialysis 2024-12-24 15:08:16 13 mg/dL F 9.0-23.0 URR% 2024-11-24 20:03:29 67 % F LENGTH OF DIALYSIS 2024-11-24 20:03:29 241 min F DIALYZER FLOW-QD 2024-11-24 20:03:29 500 mL/min F WEIGHT - POST DAY 1 2024-11-24 20:03:29 112.6 kg F WEIGHT (KG) 2024-11-24 20:03:29 105 kg F Residual kt/v 2024-11-24 20:03:29 F PRESCRIBED DAYS/WEEK 2024-11-24 20:03:29 3 Day/Wk F KT/V PRESCRIBED 2024-11-24 20:03:29 1.56 F nPCR 2024-11-24 20:03:29 0.86 G/KG/D F TBW (Valentin) 2024-11-24 20:03:29 55.57 Liters F stdKt/V (DIAL) 2024-11-24 20:03:29 N/A F Std Renal KT/V 2024-11-24 20:03:29 N/A F stdKT/V Total 2024-11-24 20:03:29 N/A F CURRENT KRU 2024-11-24 20:03:29 F Dialyzer MAGAN 2024-11-24 20:03:29 1264 Calc F BSA CELEAN 2024-11-24 20:03:29 2.27 sq m F PATIENT AGE 2024-11-24 20:03:29 44 Years F WEIGHT - PRE DAY 1 2024-11-24 20:03:29 115.1 kg F HEIGHT IN INCHES 2024-11-24 20:03:29 72 Inches F VM (KT/V MEAN VOL) 2024-11-24 20:03:29 50 F VT (KT/V TX VOL) 2024-11-24 20:03:29 54.1 L F Total Kt/V 2024-11-24 20:03:29 1.26 F AMPUTATE FACTOR 2024-11-24 20:03:29 0 F spKt/V 2024-11-24 20:03:29 1.26 F eKt/V 2024-11-24 20:03:29 1.1 F TOTAL HOURS/WEEK DIALYSIS 2024-11-24 20:03:29 10 hrs F BLOOD FLOW-QWB 2024-11-24 20:03:29 450 F Urea nitrogen [Mass/volume] in Serum or Plasma 2024-11-24 16:28:20 57 mg/dL F 9.0-23.0 Creatinine [Mass/volume] in Serum or Plasma 2024-11-24 16:28:20 9.8 mg/dL F 0.7-1.3 Urea nitrogen [Mass/volume] in Serum or Plasma --post dialysis 2024-11-24 13:29:14 19 mg/dL F 9.0-23.0 Urea nitrogen [Mass/volume] in Serum or Plasma DIALYZER FLOW-QD LENGTH OF DIALYSIS PATIENT AGE Dialyzer MAGAN WEIGHT - POST DAY 1 WEIGHT - PRE DAY 1 HEIGHT IN INCHES WEIGHT (KG) PRESCRIBED DAYS/WEEK VT (KT/V TX VOL) Total Kt/V VM (KT/V MEAN VOL) AMPUTATE FACTOR TBW (Valentin) spKt/V stdKt/V (DIAL) TOTAL HOURS/WEEK DIALYSIS stdKT/V Total URR% Residual kt/v BSA CELENA KT/V PRESCRIBED nPCR eKt/V BLOOD FLOW-QWB Std Renal KT/V CURRENT KRU Anemia Description Draw Date Result/Unit Status Ref Range Result Comments HCT CALC HGBX3 2025-01-14 23:22:50 30 % F 42.0-52.0 Hemoglobin [Mass/volume] in Blood 2025-01-14 23:22:07 10 g/dL F 14.0-18.0 HCT CALC HGBX3 2024-12-31 16:47:55 30.9 % F 42.0-52.0 Hematocrit [Volume Fraction] of Blood by Automated count 2024-12-31 16:47:15 31 % F 41.0-53.0 Hemoglobin [Mass/volume] in Blood 2024-12-31 16:47:15 10.3 g/dL F 14.0-18.0 MCV [Entitic volume] by Automated count 2024-12-31 16:47:15 102.4 fL F 80.0-100.0 Platelets [#/volume] in Blood by Automated count 2024-12-31 16:47:15 107 x 10^3 cells/uL F 140.0-450.0 MCH [Entitic mass] by Automated count 2024-12-31 16:47:15 34.1 pg F 25.9-34.2 Erythrocyte distribution width [Ratio] by Automated count 2024-12-31 16:47:15 15.3 % F 11.0-15.0 Erythrocytes [#/volume] in Blood by Automated count 2024-12-31 16:47:15 3.03 x 10^6 cells/uL F 4.6-6.2 MCHC [Mass/volume] by Automated count 2024-12-31 16:47:15 33.2 g/dL F 29.6-35.3 TIBC 2024-12-18 07:08:45 258 ug/dL F 250.0-425.0 IRON SATURATION 2024-12-18 07:08:45 31 % F 20.0-55.0 Iron [Mass/volume] in Serum or Plasma 2024-12-18 07:05:54 80 ug/dL F 65.0-175.0 Iron binding capacity.unsaturated [Mass/volume] in Serum or Plasma 2024-12-18 07:05:54 178 ug/dL F 75.0-360.0 HCT CALC HGBX3 2024-12-18 07:04:46 31.8 % F 42.0-52.0 Hemoglobin [Mass/volume] in Blood 2024-12-18 07:04:10 10.6 g/dL F 14.0-18.0 Ferritin [Mass/volume] in Serum or Plasma 2024-12-10 23:00:14 487 ng/mL F 22.0-322.0 HCT CALC HGBX3 2024-12-05 14:33:57 33 % F 42.0-52.0 Hemoglobin [Mass/volume] in Blood 2024-12-05 14:33:08 11 g/dL F 14.0-18.0 IRON SATURATION 2024-11-24 23:42:48 17 % F 21.0-49.0 TIBC 2024-11-24 23:42:48 249 ug/dL F 250.0-425.0 Iron [Mass/volume] in Serum or Plasma 2024-11-24 23:38:32 43 ug/dL F 65.0-175.0 Iron binding capacity.unsaturated [Mass/volume] in Serum or Plasma 2024-11-24 20:32:58 206 ug/dL F 75.0-360.0 HCT CALC HGBX3 2024-11-24 16:57:09 29.4 % F 42.0-52.0 Erythrocytes [#/volume] in Blood by Automated count 2024-11-24 16:56:07 3.07 x 10^6 cells/uL F 4.6-6.2 Hematocrit [Volume Fraction] of Blood by Automated count 2024-11-24 16:56:07 31.5 % F 41.0-53.0 MCV [Entitic volume] by Automated count 2024-11-24 16:56:07 102.5 fL F 80.0-100.0 Hemoglobin [Mass/volume] in Blood 2024-11-24 16:56:07 9.8 g/dL F 14.0-18.0 MCHC [Mass/volume] by Automated count 2024-11-24 16:56:07 31.2 g/dL F 29.6-35.3 Erythrocyte distribution width [Ratio] by Automated count 2024-11-24 16:56:07 15.4 % F 11.0-15.0 MCH [Entitic mass] by Automated count 2024-11-24 16:56:07 32 pg F 25.9-34.2 Platelets [#/volume] in Blood by Automated count 2024-11-24 16:56:07 110 x 10^3 cells/uL F 140.0-450.0 Ferritin [Mass/volume] in Serum or Plasma 2024-11-24 12:49:14 F CANCELED - TEST CANCELED,CANCEL ED - TEST CANCELED FluidBP Description Draw Date Result/Unit Status Ref Range Result Comments Sodium [Moles/volume] in Serum or Plasma 2024-12-31 23:19:39 138 mEq/L F 136.0-145.0 Sodium [Moles/volume] in Serum or Plasma 2024-11-24 20:32:41 133 mEq/L F 132.0-146.0 General Description Draw Date Result/Unit Status Ref Range Result Comments Chloride [Moles/volume] in Serum or Plasma 2024-12-31 23:19:39 99 mEq/L F 98.0-107.0 Alanine aminotransferase [Enzymatic activity/volume] in Serum or Plasma 2024-12-31 16:48:18 15 U/L F 10.0-49.0 Aspartate aminotransferase [Enzymatic activity/volume] in Serum or Plasma 2024-12-31 16:48:18 16 U/L F 0.0-33.0 Chloride [Moles/volume] in Serum or Plasma 2024-11-24 20:32:41 94 mEq/L F 99.0-109.0 Aspartate aminotransferase [Enzymatic activity/volume] in Serum or Plasma 2024-11-24 16:28:20 17 U/L F 0.0-33.0 Alanine aminotransferase [Enzymatic activity/volume] in Serum or Plasma 2024-11-24 16:28:20 15 U/L F 10.0-49.0 InfectionVaccination Description Draw Date Result/Unit Status Ref Range Result Comments Neutrophils/100 leukocytes in Blood by Automated count 2024-12-31 16:47:15 70.4 % F Eosinophils/100 leukocytes in Blood by Automated count 2024-12-31 16:47:15 11.4 % F Leukocytes [#/volume] in Blood by Automated count 2024-12-31 16:47:15 6.1 x 10^3 cells/uL F 4.0-11.0 Lymphocytes [#/volume] in Blood by Automated count 2024-12-31 16:47:15 612 Cells/uL F 620.0-3660.0 Eosinophils [#/volume] in Blood by Automated count 2024-12-31 16:47:15 698 Cells/uL F 0.0-700.0 Basophils/100 leukocytes in Blood by Automated count 2024-12-31 16:47:15 0.7 % F Lymphocytes/100 leukocytes in Blood by Automated count 2024-12-31 16:47:15 10 % F Monocytes/100 leukocytes in Blood by Automated count 2024-12-31 16:47:15 7.5 % F Neutrophils [#/volume] in Blood by Automated count 2024-12-31 16:47:15 4308 Cells/uL F 2000.0-8800.0 Monocytes [#/volume] in Blood by Automated count 2024-12-31 16:47:15 459 Cells/uL F 0.0-1100.0 Basophils [#/volume] in Blood by Automated count 2024-12-31 16:47:15 43 Cells/uL F 0.0-400.0 Basophils/100 leukocytes in Blood by Automated count 2024-11-24 16:56:07 0.4 % F Lymphocytes/100 leukocytes in Blood by Automated count 2024-11-24 16:56:07 15 % F Monocytes/100 leukocytes in Blood by Automated count 2024-11-24 16:56:07 7.8 % F Neutrophils [#/volume] in Blood by Automated count 2024-11-24 16:56:07 3224 Cells/uL F 2000.0-8800.0 Monocytes [#/volume] in Blood by Automated count 2024-11-24 16:56:07 368 Cells/uL F 0.0-1100.0 Basophils [#/volume] in Blood by Automated count 2024-11-24 16:56:07 19 Cells/uL F 0.0-400.0 Eosinophils [#/volume] in Blood by Automated count 2024-11-24 16:56:07 401 Cells/uL F 0.0-700.0 Eosinophils/100 leukocytes in Blood by Automated count 2024-11-24 16:56:07 8.5 % F Neutrophils/100 leukocytes in Blood by Automated count 2024-11-24 16:56:07 68.3 % F Leukocytes [#/volume] in Blood by Automated count 2024-11-24 16:56:07 4.7 x 10^3 cells/uL F 4.0-11.0 Lymphocytes [#/volume] in Blood by Automated count 2024-11-24 16:56:07 708 Cells/uL F 620.0-3660.0 MineralBone Disorder Description Draw Date Result/Unit Status Ref Range Result Comments CA CORRECTED 2024-12-31 23:29:13 9.4 mg/dL F CA/PHOS PRODUCT 2024-12-31 23:27:29 56.4 Calc F 21.0-53.0 CA*PO4 CORRCTD 2024-12-31 23:27:29 56.4 Calc F 21.0-53.0 Calcium [Mass/volume] in Serum or Plasma 2024-12-31 23:19:39 9.4 mg/dL F 8.7-10.4 Parathyrin.intact [Mass/volume] in Serum or Plasma 2024-12-31 16:51:20 445 pg/mL F 18.0-80.0 Alkaline phosphatase [Enzymatic activity/volume] in Serum or Plasma 2024-12-31 16:48:18 126 U/L F 46.0-116.0 Phosphate [Mass/volume] in Serum or Plasma 2024-12-31 16:48:18 6 mg/dL F 2.4-5.1 CA CORRECTED 2024-11-24 20:57:09 9.5 mg/dL F CA/PHOS PRODUCT 2024-11-24 20:55:15 56.1 Calc F 21.0-53.0 CA*PO4 CORRCTD 2024-11-24 20:55:15 56.1 Calc F 21.0-53.0 Calcium [Mass/volume] in Serum or Plasma 2024-11-24 20:32:41 9.5 mg/dL F 8.7-10.4 Phosphate [Mass/volume] in Serum or Plasma 2024-11-24 20:32:41 5.9 mg/dL F 2.4-5.1 Alkaline phosphatase [Enzymatic activity/volume] in Serum or Plasma 2024-11-24 16:28:20 98 U/L F 46.0-116.0 25-Hydroxyvitamin D3+25-Hydroxyvitamin D2 [Mass/volume] in Serum or Plasma 2024-11-24 13:48:18 6.9 ng/mL F Parathyrin.intact [Mass/volume] in Serum or Plasma 2024-11-24 12:49:14 F CANCELED - TEST CANCELED,CANCELED - TEST CANCELED Nutrition Description Draw Date Result/Unit Status Ref Range Result Comments Potassium [Moles/volume] in Serum or Plasma 2024-12-31 23:19:39 5.4 mEq/L F 3.5-5.1 A/G RATIO 2024-12-31 16:49:07 1.5 Calc F 1.0-2.5 GLOBULIN 2024-12-31 16:49:07 2.8 g/dL F 0.9-5.0 Albumin [Mass/volume] in Serum or Plasma by Bromocresol green (BCG) dye binding method 2024-12-31 16:48:18 4.2 g/dL F 3.2-4.8 Lactate dehydrogenase [Enzymatic activity/volume] in Serum or Plasma 2024-12-31 16:48:18 168 U/L F 120.0-246.0 Protein [Mass/volume] in Serum or Plasma 2024-12-31 16:48:18 7 g/dL F 5.7-8.2 Bicarbonate [Moles/volume] in Serum or Plasma 2024-12-31 16:48:18 23 mEq/L F 20.0-31.0 Potassium [Moles/volume] in Serum or Plasma 2024-11-24 20:32:41 5.2 mEq/L F 3.5-5.5 GLOBULIN 2024-11-24 16:29:33 2.8 g/dL F 0.9-5.0 LDL-CHOLESTEROL 2024-11-24 16:29:33 57 mg/dL F 0.0-99.0 VLDL-CHOL(CALC) 2024-11-24 16:29:33 11 mg/dL F 0.0-29.0 A/G RATIO 2024-11-24 16:29:33 1.6 Calc F 1.0-2.5 CHOL/HDL RATIO 2024-11-24 16:29:33 2.7 Calc F 3.3-5.0 Cholesterol [Mass/volume] in Serum or Plasma 2024-11-24 16:28:20 107 mg/dL F 0.0-199.0 Albumin [Mass/volume] in Serum or Plasma by Bromocresol green (BCG) dye binding method 2024-11-24 16:28:20 4.4 g/dL F 3.4-4.8 Lactate dehydrogenase [Enzymatic activity/volume] in Serum or Plasma 2024-11-24 16:28:20 174 U/L F 120.0-246.0 Protein [Mass/volume] in Serum or Plasma 2024-11-24 16:28:20 7.2 g/dL F 5.7-8.2 Cholesterol in HDL [Mass/volume] in Serum or Plasma 2024-11-24 16:28:20 39 mg/dL F 40.0-60.0 Bicarbonate [Moles/volume] in Serum or Plasma 2024-11-24 16:28:20 26 mEq/L F 20.0-31.0 Protein [Mass/volume] in Serum or Plasma 2024-11-24 16:28:20 54 mg/dL F 0.0-149.0 Cobalamin (Vitamin B12) [Mass/volume] in Serum or Plasma 2024-11-24 13:48:18 628 pg/mL F 211.0-911.0 Encounters No encounter information to report Immunizations Ordered Immunization Name Filled Immunization Name Date Status Comments Refusal Reason Pneumococcal conjugate PCV20, polysaccharide [id number] conjugate, adjuvant, PF 2024-11-25 13:44:00 TST-PPD intradermal 2024-05-22 11:13:27 Influenza, MDCK, trivalent, preservative 2024-05-07 14:00:00 TST-PPD intradermal 2023-05-24 14:48:47 Influenza Vaccination 2022-05-09 05:00:00 TB Skin Test 2022-04-04 05:00:00 Hepatitis B Vaccination 2020-12-30 05:00:00 Covid-19 Vaccination 2020-10-17 08:00:00 Hepatitis B Vaccination 2019-10-12 05:00:00 Hepatitis B Vaccination 2019-06-15 06:00:00 Hepatitis B Vaccination 2019-05-18 05:00:00 Pneumococcal Vaccination 2019-04-24 05:00:00 Hepatitis B Vaccination 2019-04-13 05:00:00 Plan of Treatment Planned Activity Provider Planned Date Details Commen ts Diagnostic Test Pending Sharon Farnsworth 2024-11-19 05:00:00 Ferritin [Mass/volume] in Serum or Plasma [code = 2276-4] Diagnostic Test Pending Sharon Farnsworth 2022-09-24 06:00:00 Cobalamin (Vitamin B12) [Mass/volume] in Serum or Plasma [code = 2132-9] Diagnostic Test Pending [facility] 2022-09-24 06:00:00 Creatinine [Mass/volume] in Serum or Plasma [code = 2160-0] Diagnostic Test Pending Sharon [facility] 2023-12-08 05:00:00 Hemoglobin [Mass/volume] in Blood [code = 718-7] Diagnostic Test Pending [facility] 2022-11-19 05:00:00 Parathyrin.intact [Mass/volume] in Serum or Plasma [code = 2731-8] Diagnostic Test Pending Sharon [facility] 2022-09-24 06:00:00 Aluminum [Mass/volume] in Serum or Plasma [code = 5574-9] Diagnostic Test Pending Sharon [facility] 2022-09-24 06:00:00 25-Hydroxyvitamin D3+25-Hydroxyvitamin D2 [Mass/volume] in Serum or Plasma [code = 20263-9] Diagnostic Test Pending [facility] 2022-09-24 06:00:00 Potassium [Moles/volume] in Serum or Plasma [code = 2823-3] Diagnostic Test Pending [facility] 2022-09-24 06:00:00 Sodium [Moles/volume] in Serum or Plasma [code = 2951-2] Diagnostic Test Pending [facility] 2023-04-21 05:00:00 Alanine aminotransferase [Enzymatic activity/volume] in Serum or Plasma [code = 1742-6] Diagnostic Test Pending [facility] 2024-10-26 12:53:06 In-Center Hemodialysis Treatment [code = ANI602] Diet Order [facility] October 11, 2022 Diet Calorie 25 kcal/kg Fluid Value 1000 mL/d Phosphorus Value 1100 mg/d Potassium Value 3000 mg/d Protein Value 1.2 gm/kg Sodium Value 2000 mg/d Calculated Weight 90.4 kg dietary_diet_modification Carb Controlle d;
--- OUTSIDE RECORDS SUMMARY | 2025-01-27 21:47 | XMS_ITS | Continuity of Care Document ---
Author Organization [facility] Address [address] [place] [address] Phone Care Team Providers Care Boilermaker Apprentice Name Role Phone Rodriguez OD, Jostin Unavailable Unavailable Procedures Procedure Date Office/outpatient Visit, Est Remove Foreign Body From Eye Advance Directives Directive Yes / No Effective Date File Name No Information Encounters Encounter Description Practice Location Reason(s) For Visit Diagnoses Date Provider Providers Copied on Encounter Office/outpat ient Visit, Est [facility], [address] [place] [address] [address], [place], [place], [id number], [place] tel:[phone] [facility] No Information 0-200 7 Rodriguez OD Jostin. [address] [facility] , [address], [place], [address], [place]. tel:[phone] [facility], [address] [place] [address] [address], [place], [place], [id number], [place] tel:[phone] [facility] No Information 7-200 7 Son Chapman. [address] [facility], [address], [place], [place], [id number], [place]. tel:[phone] Family History Family Member Type Diagnosis Age At Onset No Information Payers Payer name Insurance type Covered constitution party ID Authoriza tion(s) No Information Social [...]
--- NOTE | 2025-01-27 21:59 | ECG_ITS ---
Test Date: 2025-01-27 22:15:57 Measurements Intervals [place] Rate: 73 P: 43 AK: 228 QRS: -7 QRSD: 121 T: 90 QT: 428 QTc: 472 Interpretive Statements SINUS RHYTHM WITH FIRST DEGREE AV BLOCK MODERATE INTRAVENTRICULAR CONDUCTION DELAY [110+ ms QRS DURATION] ST DEVIATION AND MODERATE T-WAVE ABNORMALITY, CONSIDER LATERAL ISCHEMIA [-0.1+ mV T WAVE IN I/aVL/V5/V6] No previous ECG available for comparison Electronically Signed On 01-28-2025 11:50:39 CDT by Neville Benitez M.D.
[2025-01-27 22:03] VITALS: BP 184/78; PULSE 75; RESP 16; TEMP 36.2; O2SAT 100
[2025-01-27 22:32] LABS: Hematocrit 32.4 % (42.0-52.0); Hemoglobin 10.2 g/dL (14.0-18.0); Immature Granulocyte Percent A 0.5 % (0-0.5); Lymphocytes Absolute Auto 0.61 K/mm3 (0.9-3.2); Mean Corpuscular HGB Conc 31.5 g/dl (32-36); Mean Corpuscular Hemoglobin 31.2 pg (26-34); Mean Corpuscular Volume 99.1 fl (80-100); Nucleated Red Blood Cells Absolute Auto 0.000 K/mm3 (0.0-0.012); Nucleated Red Blood Cells Perc 0.0 % (0.0-0.2); Platelet Count Result 160 k/mm3 (150-375); Red Blood Count 3.27 M/mm3 (4.6-6.20); White Blood Count 5.5 K/mm3 (4.5-10.0)
[2025-01-27 22:42] LABS: Alanine Aminotransferase 17 U/L (6-50); Albumin Level 4.3 g/dL (3.5-5.1); Alkaline Phosphatase 144 U/L (38-126); Anion Gap 12 mmol/L (4-12); Aspartate Amino Transferase 26 U/L (17-59); Bilirubin,Total 0.5 mg/dL (0.2-1.3); Blood Urea Nitrogen 24 mg/dL (9-20); Calcium 10.4 mg/dL (8.4-10.2); Carbon Dioxide 30 mmol/L (22-30); Chloride 91 mmol/L (98-107); Estimated CRCL calculation 16 ml/min; Estimated Glomerular Filt Rate 9; Glucose 148 mg/dL (65-110); Potassium 4.7 mmol/L (3.4-5.0); Sodium 133 mmol/L (137-145); Total Protein 8.5 g/dL (6.3-8.2)
[2025-01-27 23:10] VITALS: BP 187/78; PULSE 71; RESP 18; TEMP 36.4; O2SAT 98
[2025-01-27 23:53] LABS: Magnesium 2.5 mg/dL (1.6-2.3)
--- OUTSIDE RECORDS SUMMARY | 2025-01-28 00:01 | XMS_ITS | Encounter Summary ---
Author Organization [facility] Health Address [address] [place] [address] Care Team Providers Care Ship Superintendent Name Role Phone Dallas Tejada MD Primary Care Provider [phone] Naomi Kaye MD Unavailable Dallas Tejada MD Unavailable [phone] Naomi Kaye MD Unavailable Encounter Details Date Type Department Care Team (Late Contact Info) Description 02/09/2019 [facility] [address] [place] [address] [place] [address] [facility] [address] [place] [id number] Social History Tobacco Use Types Packs/Day Years [...] (Late Contact Info) Description 05/25/2025 2:15 PM MORTICIAN HELPER Appointment [facility] Health Vascular Services [address] [facility] [address] [facility], [address] [place] [address] documented as of this encounter Visit Diagnoses Not on filedocumented in this encounter Care Teams Ship Superintendent Relationship Specialty Start Date End Date Dallas Tejada MD [address] [facility] [address] [place] [address] PCP - General Internal Medicine 02/18/19 Naomi Kaye MD [address] [facility] [address] [place] [address] PCP - [facility] 07/22/24 10/19/24 Dallas Tejada MD [address] [facility] [address] [place] [address] PCP - [facility] 10/20/24 11/18/24 Naomi Kaye MD [address] [facility] [address] [place] [address] PCP - [facility] 11/19/24 documented as of this encounter
--- OUTSIDE RECORDS SUMMARY | 2025-01-28 00:01 | XMS_ITS | Clinical Summary ---
Author Organization [facility] Address [address] [place] [address] Care Team Providers Care Precision Lens Grinder Name Role Phone Dallas Tejada MD Primary Care Provider [phone] Naomi Kaye MD Unavailable [phone] Source Comments [facility],non-owned Affiliates and Associated Physician Practices is amultiple site organization consisting of ambulatory clinics and hospital sitesin [place], [place], [place] and [place]. This disclosure is being madepursuant to the Care Everywhere program and may not contain all information available regarding this patient. Last updated 18.[facility] Allergies No known active allergies Medications * [...] 24 hours. 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 Rj Cole 1980 Listing date: Referring Maintenance Groundman: Sharon Farnsworth Dialysis Info: Type: HD M,W,F Time: 03/10/2019 Blood Type: O POS Body mass index is 31.65 kg/m . ALERTS: pt will need FLOmax post txp ALERTS: pt has been using midodrine prn on dialysis this December - January 2024 (BPs requested) Nurse Leader: pt seen by Dr. Donato on 05/12/2024 ESRD 2/2 DM2 and HTN Past Medical History: Diagnosis Date Anuria q3 days, very little/could fill up bottom of cup CHF (congestive heart failure) ([facility]) Coronary artery disease seen on [facility] [facility] completed here on 05/25/2020. Diabetes mellitus (HCC) dx at age [age] no yield analyst, was on metformin x 1 week, diet controlled diarrhea Esophageal reflux ESRD on hemodialysis ([facility]) BEN ([facility]) [place] M, W, F 08/11/19 History of blood transfusion 2018 when found out kidney failure Hypertension dx at age 38 Kidney stones twice in his early 20s, passed on own Kidney trouble Neuropathy Oliguria PVD (peripheral vascular disease) ([facility]) c/o claudication sometimes but thinks [...] teeth removed Renal Biopsy 2018 [facility] [place] Retinal Detachment Repair Bilateral Social History Socioeconomic [...] phases of the transplant evaluation Present to [facility] for approval/denial/ versus more testing to [...] selection committee. Nephrology Clinic Appt w/: Dr. rAaiza Rub Date: 01/21/2024 A/P: HPI: Rj Cole [...] currently on MWF hemodialysis in [facility] 2) Cardiovascular Disease - Due to the [...] male with the following diagnoses presenting to [facility] for follow up/evaluation of Nonobstructive atherosclerosis of coronary artery [I25.10] Impression: Nonobstructive atherosclerosis of coronary artery (primary encounter diagnosis) Pre-transplant evaluation for kidney transplant Left ventricular hypertrophy Grade II diastolic dysfunction Moderate tricuspid regurgitation ESRD on hemodialysis ([facility]) Controlled type 2 diabetes mellitus with other specified complication, without long-term current use of insulin ([facility]) History of tobacco use NYHA [...] Takes midodrine on HD days if needed Maintenance Groundman : Sharon aFrnsworth [facility] [facility] 05/2020 with nonobstructive CAD, mild disease in mLAD Never started on statin therapy, LDL 70 12/2023 ASCVD: CT Calcium (as part of stress test) 02/06/2024 with calcium score in the left main artery 302.4, LAD of 574.0, LCX 53.4and CYX7781.6. HTN + DMT2 history with end organ [...] corrective surgery, ESRD on HD, nonobstructive CAD ([facility] [facility] 05/2020), HLD, BPH, RLS, history of tobacco use. He was last seen in the [facility] by Dr Garg on 05/10/2020 [...] artery 302.4, LAD of 574.0, LCX 53.4and [id number]. Total calcium score is 2473.4. According to [...] ventricle. > Dictated by Rosy Florian MD (Senior Drafter) 02/06/2024 11:30 AM ICarter MD have personally [...] evidence of ischemia at achieved workload. Catherization [facility] 05/25/2020 HEMODYNAMIC FINDINGS: LV:148/28 mm Hg AO: [...] ascites and mesenteric/ retroperitoneal stranding/edema. Trenton Shaw, TALENT MANAGER-DIRECTOR LABOR STANDARDS Pertinent Previous Committee Presentations: [facility] notes: 05/10/2022 Committee Discussion Details: Pt's case presented at [facility] today to discuss his candidacy for [...] 44) LV RWT 0.402 LV mass 2D 357.74060771245733 g (Range: 96 - 200) LV mass [...] artery 302.4, LAD of 574.0, LCX 53.4and ACH7522.6. Total calcium score is 2473.4. According to [...] artery 302.4, LAD of 574.0, LCX 53.4and HWZ5049.6. Total calcium score is 2473.4. According to [...] race matched control. 4. Enlarged left ventricle. [facility] [facility]: 04/27/2024 Conclusion 50% proximal/mid LAD stenosis, ischemic [...] Chante Yates RN; * Dear Doctors: Mr. Coel has mid LAD 50% stenosis that is ischemic (DFR 0.76). The remainder of this coronaries are fine. Mid LCX 40% which is nonischemic (DFR 0.96). If you decide this needs to be intervened before transplant listing, we can arrange that with estimated plavix use 3-6 months. If you have any questions, please feel free to call or text me on my cell phone [phone]. I appreciate the opportunity to participate in the care of your patient and look forward to being of service in the future as well. Sincerely, Jose Cedillo MD, PhD, [facility]: 05/25/2020 (completed given length of time DM2) [...] mesenteric/retroperitoneal stranding/edema. ABIs: 01/07/2024 [facility]/07/2024 INDINGS: A door paneler radiograph remarkable, other than calcification of iliac [...] Impression: It is the impression of this nursing home social worker that Rj Cole has several positive factors for Kidney from a psychosocial perspective. Patient appears to have appropriate knowledge of illness. Patient has sufficient insurance coverage and stable financial situation for post transplant needs. No concerns regarding substance abuse, legal issues, or mental health needs. Patient has adequate support system and appropriate discharge plan. Plan: general office worker to provide supportive services as needed. Patient appears to be a reasonable candidate for transplant from a psychosocial perspective. -Post transplant arrangement forms are needed prior to being listed. Psychiatric Consult Recommended: No Transplant Boat Worker: Katherine Joaquin LMSW Abdominal Transplant Boat Worker [phone] RIM FIRE PRIMING OPERATOR Forms: Transplant Caregiver Confirmation Note Caregiver Confirmation Date Primary Name of Primary: [place] Relationship: girlfriend - RIM FIRE PRIMING OPERATOR form received on 01/21/24 - Confirmed via telephone on 01/27/24 Secondary Name of Secondary: Dorcas Relationship: sister - RIM FIRE PRIMING OPERATOR form received on 01/21/24 - Confirmed via [...] fistula Immunizations Immunization Administration Dates Next Due [employer] PRIMARY 18+YR 10/17/2020 FLU VACCINE QUAD IIV4 [...] Comments Blood Pressure 140/64 06/11/2024 2:00 PM BELT MAKER HELPER Pulse 58 06/11/2024 2:00 PM BELT MAKER HELPER Temperature 36.7 C (98 F) 06/11/2024 10:58 AM BELT MAKER HELPER Respiratory Rate 10 06/11/2024 2:00 PM BELT MAKER HELPER Oxygen Saturation 97% 06/11/2024 2:00 PM BELT MAKER HELPER Inhaled Oxygen Concentration - - Weight 106.6 kg (235 lb) 06/11/2024 5:50 AM BELT MAKER HELPER Height 182.9 cm (6') 06/11/2024 5:50 AM BELT MAKER HELPER Body Mass Index 31.87 06/11/2024 5:50 AM BELT MAKER HELPER Plan of Treatment Upcoming Encounters Date Type Department Care Team (Late st Contact Info) Description 05/25/2025 2:15 PM BELT MAKER HELPER Appointment [facility] Vascular Services [address] [place] [address], [place] [id number] Health Maintenance Due Date Last Done Comments [...] this topic Medical Devices Implanted Type Area Stereotype Molder Device Identifier Shelf Expiration Date Model / Serial / Lot Stent Cor Rulo 3.50 X 18rx Drg Elut - [id number] Implanted:Qty: 1 on 06/11/2024 by Jose Cedillo MD at [facility] Left: Coronary [employer] [id number] 06/11/2026 [id number] / [id number] / [id number] Procedures Procedure Name Priority Date/Time Associated Diagnosis [...] PM CDT) Hemoglobin A1c POCT 4.7 % [facility] BLOOD SPECIMEN / Unknown 05/12/2024 1:22 PM CDT Niurka Donato MD LAB - POINT OF CARE ORDERABLES Final Result [address], [place] [address], [facility] [phone] * ENDOSCOPY, COLON, SCREENING (01/28/2024 12:23 PM [...] and oxygen saturations were monitored continuously. The [id number] was introduced through the anus and advanced to the cecum, identified by appendiceal orifice and ileocecal valve. The colonoscopy was performed without difficulty. The patient tolerated the procedure well. The quality of the bowel preparation was evaluated using the BBPS ([place] Bowel Preparation Scale) with scores of: Right [...] non-barillas portions. Procedure Code(s): --- Professional --- 10341, Colonoscopy, flexible; with removal of tumor(s), polyp(s), or other lesion(s) by snare technique Diagnosis Code(s): --- Professional --- Z12.11, Encounter for screening for malignant neoplasm of colon D12.3, Benign neoplasm of transverse colon (hepatic flexure or splenic flexure) D12.2, Benign neoplasm of ascending colon CPT copyright 2021 [employer] [place] [employer]. All rights reserved. The codes documented in this report are preliminary and upon mechanical project manager review may be revised to meet current compliance requirements. Mauro Gómez MD 01/28/2024 1:37:03 PM Note Initiated On: 01/28/2024 12:23 PM Number of Addenda: [id number] [place] [address] [facility] 01/28/2024 12:2 3 PM CDT Daniel Leggett MD GI PROCEDURE ORDERAB LES Edited Result - Final [facility] * HIV-1 HIV-2 ANTIBODY + HIV P24 AG PANEL (01/07/2024 12:28 PM CDT) HIV Antigen/Antibod y 1 & 2 Non-reacti ve Non-react mary jane 01/07/2024 2:52 PM CDT [facility] Comment:No Laboratory eviden ce of HIV infection. Blood BLOOD SPECIMEN / Unknown Lab Venipuncture / Unknown 01/07/2024 12:28 PM CDT 01/07/2024 1:08 PM CDT Clif Stein MD LAB - CHEMISTRY ORDERAB LES Final Result [address] [place] [address], [place] [phone] * HEPATITIS C ANTIBODY (01/07/2024 12:28 PM [...] ORDERAB LES Final Result Performing Organization Address City/[facility] Co de Phone Number [address] [address], [facility] [phone] from Last 3 Months or Most Recently [...] 3:49 PM 02/23/2019 4:47 PM Care Teams Precision Lens Grinder Relationship Specialty Start Date End Date Dallas Tejada MD [address] [facility] [address] [place] [address] PCP - General Internal Medicine 02/18/19 Naomi Kaye MD [address] [facility] [address] [place] [address] [facility] 11/19/24
--- OUTSIDE RECORDS SUMMARY | 2025-01-28 00:02 | XMS_ITS | Continuity of Care Document ---
Author Organization [facility] Address [address] [facility] [address] [place] [address] Phone Care Team Providers Care Riveting Machine Operator Automatic Name Role Phone Rodriguez OD, Jostin Unavailable Unavailable Procedures Procedure Date Office/outpatient Visit, Est Remove Foreign Body From Eye Advance Directives Directive Yes / No Effective Date File Name No Information Encounters Encounter Description Practice Location Reason(s) For Visit Diagnoses Date Provider Providers Copied on Encounter Office/outpat ient Visit, Est [facility], [address] [place] [address] [address], [place], [place], [id number], [place] tel:[phone] [facility] No Information 0-200 7 Rodriguez OD Jostin. [address] [facility] , [address], [place], [address], [place]. tel:[phone] [facility], [address] [place] [address] [address], [place], [place], [id number], [place] tel:[phone] [facility] No Information 7-200 7 Son Chapman. [address] [facility], [address], [place], [place], [id number], [place]. tel:[phone] Family History Family Member Type Diagnosis Age [...]
--- NOTE | 2025-01-28 00:42 | ED.GENADULT ---
HPI - General Adult General Chief complaint: Weakness <DICKSON Reeder Last Filed: 01/28/25 01:34> Stated complaint: dizzy/weakness/cold <DICKSON Reeder Last Filed: 01/28/25 01:34> Time Seen by Provider: 01/27/25 23:39 <DICKSON Reeder Last Filed: 01/28/25 01:34> Source: patient <DICKSON Reeder Last Filed: 01/28/25 01:34> Mode of arrival: ambulatory <DICKSON Reeder Last Filed: 01/28/25 01:34> Limitations: no limitations <DICKSON Reeder Last Filed: 01/28/25 01:34> History of Present Illness HPI narrative: Patient is a 44 y/o male, with PMH of ESRD on HD MWF, HTN, HLD, CAD, who presents to the ED with report of confusion. Patient reports around 5:00 p.m. tonight, he began feeling increasingly confused. States he just felt out of it, had difficulty with simple tasks d/t confusion. Reports trouble figuring out how to use his phone/call his sister. He also reported lightheadedness and a change in his depth perception. States he would reach for something and it would be much further than he thought. Denied vision loss or diplopia, blurry vision. He also reported feeling somewhat heavy in his left arm and left leg. Denied weakness or numbness of the arm or leg. He called his sister to bring him to the ED. The sister reports that he did seem somewhat confused to her. She states when he was getting into the car, she had to tell him how to open the car door and where to put his hands to get into the car. Patient reports slight tension throughout his posterior head, denies significant headache pain. Denies any recent fall or injury. Denies chest pain, shortness of breath, recent fevers. <DICKSON Reeder Last Filed: 01/28/25 01:34> Related Data Home medications: Home Medications ?Medication ?Instructions ?Recorded ?Confirmed ?Last Taken ?Type amlodipine 10 mg tablet 10 mg PO DAILY 11/11/24 11/11/24 11/10/24 History calcium acetate(phosphat bind) 667 667 mg PO QID 11/11/24 11/11/24 11/10/24 History mg capsule clopidogrel 75 mg tablet 75 mg PO DAILY 11/11/24 11/11/24 10/28/24 History cyclobenzaprine 10 mg tablet 10 mg PO Q8H PRN restless leg(s) 11/11/24 11/11/24 11/11/24 History furosemide 80 mg tablet 80 mg PO Q12H 11/11/24 11/11/24 11/10/24 History hydralazine 50 mg tablet 50 mg PO TID 11/11/24 11/11/24 11/10/24 History metoprolol succinate 25 mg 12.5 mg PO DAILY 11/11/24 11/11/24 10/21/24 History tablet,extended release 24 hr peg-electrolyte solution 420 gram 240 ml PO DAILY PRN constipation 11/11/24 11/11/24 10/28/24 History oral solution ropinirole 0.25 mg tablet 0.25 mg PO HS 11/11/24 11/11/24 11/10/24 History rosuvastatin 10 mg tablet 10 mg PO HS 11/11/24 11/11/24 11/10/24 History <Jessenia Bridges PA-C - Last Filed: 01/28/25 01:34> Allergies/adverse reactions: Allergies Allergy/AdvReac Type Severity Reaction Status Date / Time No Known Allergies Allergy Verified 01/27/25 23:18 <Jessenia Bridges PA-C - Last Filed: 01/28/25 01:34> Review of Systems Review of Systems: All systems reviewed & are unremarkable except as noted in HPI. <Jessenia Bridges PA-C - Last Filed: 01/28/25 01:34> All systems reviewed & are unremarkable except as noted in HPI and below <Jessenia Bridges PA-C - Last Filed: 01/28/25 01:34> [facility] Past Medical History Medical History: Medical History Coronary artery disease Anemia in chronic kidney disease Hyperlipidemia Hypertension End-stage renal disease on hemodialysis on transplant list at [facility] <Jessenia Bridges PA-C - Last Filed: 01/28/25 01:34> Surgical History Surgical History: Surgical History History of cardiac catheterization (05/2024) History of coronary artery stent placement (05/2024) at [facility] Status post creation of arteriovenous fistula left upper extremity <Jessenia Bridges PA-C - Last Filed: 01/28/25 01:34> Family History Family History: Family History Mother Acute myocardial infarction Father Acute myocardial infarction Sibling Diabetes mellitus <Jessenia Bridges PA-C - Last Filed: 01/28/25 01:34> Social History Social History: Social History Social History: Surrogate medical decision maker: Virginia Bustamante, girlfriend. Code status: Full code. Years smoked: 23 Smoking status: Former smoker Tobacco type: cigars Smoking end date: 09/20/23 Alcohol intake: never Substance use: former Substance use type: marijuana Do You Feel Safe in your Home?: Yes Lack of Transportation: No Lack of Food: Never True Current Housing: I Have Housing Concerned About Future Housing: No Difficulty Paying Gas/Electric Bills: No Difficulty Paying for Meds: No Currently Unemployed: YES Education: High School Diploma/GED Difficulty w/ Childcare or Family Care: No Additional living arrangements comments: Lives with girlfriend. Additional occupation/education comments: Disabled. Spiritual care concerns: No <Jessenia Bridges PA-C - Last Filed: 01/28/25 01:34> Exam Narrative: GENERAL: Chronically ill appearing, obese with BMI 31.0, non-toxic, in no acute distress. HEAD: Normocephalic, atraumatic. EYES: PERRL/EOMI, conjunctivae clear bilaterally. No nystagmus. NECK: Supple. No meningeal signs. RESPIRATORY: Airway patent, respirations nonlabored. Clear to auscultation bilaterally, no rales, rhonchi, wheezing. CARDIOVASCULAR: Regular rate and rhythm without murmurs, rubs, or gallops. Peripheral pulses 2+ and equal bilaterally. MUSCULOSKELETAL: Moves all extremities. No gross deformities. SKIN: Warm, dry, very slight jaundice appearance of skin. No rashes. NEURO: A&O X3. Speech clear. Able to answer all questions and follow commands. CN II-XII intact. Sensation grossly intact. Steady gait. No ataxic movements. Strength 5/5 in R upper and lower extremities. Slight weakness appreciated of left lower extremity compared to right. No appreciable weakness of left upper extremity. Equal enterprise resource planning consultant strength bilaterally. No pronator drift. [id number] testing intact bilaterally. PSYCHIATRIC: Appropriate mood and affect. Normal interaction. <Jessenia Bridges PA-C - Last Filed: 01/28/25 01:34> Course PHOTOVOLTAIC FABRICATION TECHNICIAN/PA Physician Supervision For this patient encounter, I reviewed the PHOTOVOLTAIC FABRICATION TECHNICIAN or PA documentation, treatment plan, and medical decision making and had [id number] time with this patient. I performed all aspects of the MDM as documented. <Lorelei Ricardo MD - Last Filed: 01/28/25 04:35> Vital Signs Vital signs: Vital Signs Temperature 97.2 F L 01/27/25 22:03 Pulse Rate 75 01/27/25 22:03 Respiratory Rate 16 01/27/25 22:03 Blood Pressure 184/78 H 01/27/25 22:03 Pulse Oximetry 100 01/27/25 22:03 Oxygen Delivery Room Air 01/27/25 22:03 Temperature 97.5 F L 01/27/25 23:10 Pulse Rate 87 01/28/25 02:19 Respiratory Rate 18 01/28/25 02:19 Blood Pressure 185/78 H 01/28/25 02:19 Pulse Oximetry 99 01/28/25 02:19 Oxygen Delivery Room Air 01/27/25 22:03 <Jessenia Bridges PA-C - Last Filed: 01/28/25 01:34> Vital Signs Temperature 97.2 F L 01/27/25 22:03 Pulse Rate 75 01/27/25 22:03 Respiratory Rate 16 01/27/25 22:03 Blood Pressure 184/78 H 01/27/25 22:03 Pulse Oximetry 100 01/27/25 22:03 Oxygen Delivery Room Air 01/27/25 22:03 Temperature 97.5 F L 01/27/25 23:10 Pulse Rate 87 01/28/25 02:19 Respiratory Rate 18 01/28/25 02:19 Blood Pressure 185/78 H 01/28/25 02:19 Pulse Oximetry 99 01/28/25 02:19 Oxygen Delivery Room Air 01/27/25 22:03 <Lorelei Ricardo MD - Last Filed: 01/28/25 04:35> Medical Decision Making MDM Narrative Medical decision making narrative: Patient presented to ED with confusion, feeling out of it, changes in depth perception, heaviness of left arm/left leg. Tonight around 5:00 p.m.. Vital signs are stable upon arrival. Patient mildly hypertensive at 180s systolic. He does have history of hypertension and is on amlodipine, hydralazine, metoprolol. On neurologic exam, he did have slight weakness appreciated in his left leg, otherwise overall neurologically intact. A&O x4, able to answer all questions and follow commands, but reported having difficulty/confusion with simple tasks today. Basic laboratory studies were obtained and without leukocytosis. Chronic mild anemia. End-stage renal disease, consistent with previous records. No significant electrolyte derangement. EKG without concerning ischemic changes. Chest x-ray was clear. CT brain was obtaining and showing 3 separate small subdural hematomas. Patient denies any recent fall, injury, head injury. He is not on any anticoagulation. Discussed these findings with patient and need for transfer to tertiary care center with neurosurgery capabilities. [facility] Discussed case with Luis LARSON neurosurgery @ [facility], will see patient and consult, recommended transfer to [facility]. Recommended to keep blood pressure < 160 systolic. Nicardipine drip started in the ED for blood pressure management. Transfer center discussed with Dr. Ortiz, EDP @ [facility], accepted patient for transfer. Patient and family are in agreement with plan. Unable to get ambulance transportation here in a timely manner. Estimated time was over 2 hours. Given critical nature intracranial hemorrhage and need for close BP monitoring/drip titration, patient will be flown via [facility]. He is in agreement with this. <Jessenia Bridges PA-C - Last Filed: 01/28/25 01:34> Patient presented to ED with confusion, feeling out of it, changes in depth perception, heaviness of left arm/left leg. Tonight around 5:00 p.m.. Vital signs are stable upon arrival. Patient mildly hypertensive at 180s systolic. He does have history of hypertension and is on amlodipine, hydralazine, metoprolol. On neurologic exam, he did have slight weakness appreciated in his left leg, otherwise overall neurologically intact. A&O x4, able to answer all questions and follow commands, but reported having difficulty/confusion with simple tasks today. Basic laboratory studies were obtained and without leukocytosis. Chronic mild anemia. End-stage renal disease, consistent with previous records. No significant electrolyte derangement. EKG without concerning ischemic changes. Chest x-ray was clear. CT brain was obtaining and showing 3 separate small subdural hematomas. Patient denies any recent fall, injury, head injury. He is not on any anticoagulation. Discussed these findings with patient and need for transfer to tertiary care center with neurosurgery capabilities. Patient would [facility] to go [facility]. Discussed case with Luis LARSON neurosurgery @ [facility], will see patient and consult, recommended transfer to [facility]. Recommended to keep blood pressure < 160 systolic. Nicardipine drip started in the ED for blood pressure management. Transfer center discussed with Dr. Ortiz, EDP @ [facility], accepted patient for transfer. Patient and family are in agreement with plan. Unable to get ambulance transportation here in a timely manner. Estimated time was over 2 hours. Given critical nature intracranial hemorrhage and need for close BP monitoring/drip titration, patient will be flown via [facility]. He is in agreement with this. Critical care time of 67 minutes, exclusive of separately performed procedures, necessary for treating or preventing eminent or life-threatening deterioration of patient's condition of multiple subdural hematomas, Vamsi lowe, focused on patient care provided personally by me and time spent during initial evaluation, physical examination, ordering and performing treatments and interventions, ordering and reviewing laboratory studies, ordering and reviewing radiographic studies, re-evaluation of the patient's condition, evaluation of the patient's response to treatment, and discussion of patient case with multiple consultants. <Lorelei Ricardo MD - Last Filed: 01/28/25 04:35> Medical Records Medical records reviewed: Yes I reviewed the external patient's medical records. <DICKSON Reeder Last Filed: 01/28/25 01:34> Vital Signs Vital Signs: Vital Signs Temperature 97.2 F L 01/27/25 22:03 Pulse Rate 75 01/27/25 22:03 Respiratory Rate 16 01/27/25 22:03 Blood Pressure 184/78 H 01/27/25 22:03 Pulse Oximetry 100 01/27/25 22:03 Oxygen Delivery Room Air 01/27/25 22:03 Temperature 97.5 F L 01/27/25 23:10 Pulse Rate 87 01/28/25 02:19 Respiratory Rate 18 01/28/25 02:19 Blood Pressure 185/78 H 01/28/25 02:19 Pulse Oximetry 99 01/28/25 02:19 Oxygen Delivery Room Air 01/27/25 22:03 <DICKSON Reeder Last Filed: 01/28/25 01:34> Vital Signs Temperature 97.2 F L 01/27/25 22:03 Pulse Rate 75 01/27/25 22:03 Respiratory Rate 16 01/27/25 22:03 Blood Pressure 184/78 H 01/27/25 22:03 Pulse Oximetry 100 01/27/25 22:03 Oxygen Delivery Room Air 01/27/25 22:03 Temperature 97.5 F L 01/27/25 23:10 Pulse Rate 87 01/28/25 02:19 Respiratory Rate 18 01/28/25 02:19 Blood Pressure 185/78 H 01/28/25 02:19 Pulse Oximetry 99 01/28/25 02:19 Oxygen Delivery Room Air 01/27/25 22:03 <Lorelei Ricardo MD - Last Filed: 01/28/25 04:35> Lab Data Lab results reviewed: Yes I reviewed the patient's lab results. <DICKSON Reeder Last Filed: 01/28/25 01:34> Result diagrams: 01/27/25 22:24 01/27/25 22:24 <DICKSON Reeder Last Filed: 01/28/25 01:34> Labs: Lab Results 01/27/25 Range/Units 22:24 WBC 5.5 (4.5-10.0) K/mm3 RBC 3.27 L (4.6-6.20) M/mm3 Hgb 10.2 L (14.0-18.0) g/dL Hct 32.4 L (42.0-52.0) % MCV 99.1 (80-100) fl MCH 31.2 (26-34) pg MCHC 31.5 L (32-36) g/dl RDW 15.2 H (11.5-14.5) % Plt Count 160 (150-375) k/mm3 MPV 9.5 (7.4-10.4) fl Immature Gran % (Auto) 0.5 (0-0.5) % Neut % (Auto) 66.7 (45.5-73.1) % Lymph % (Auto) 11.2 L (18.3-44.2) % [place] % (Auto) 15.4 H (2.6-8.5) % Eos % (Auto) 5.3 H (0-4.4) % Baso % (Auto) 0.9 (0.2-1.2) % Lymph # (Auto) 0.61 L (0.9-3.2) K/mm3 [place] # (Auto) 0.8 H (0.1-0.6) K/mm3 Eos # (Auto) 0.3 (0-0.3) K/mm3 Baso # (Auto) 0.1 (0.0-0.1) K/mm3 Abs Immat Gran (auto) 0.03 (0.00-0.031) K/mm3 Absolute Neuts (auto) 3.7 (1.3-6.7) K/mm3 Absolute Nucleated RBC 0.000 (0.0-0.012) K/mm3 Nucleated RBC % 0.0 (0.0-0.2) % Sodium 133 L (137-145) mmol/L Potassium 4.7 (3.4-5.0) mmol/L Chloride 91 L (98-107) mmol/L Carbon Dioxide 30 (22-30) mmol/L Anion Gap 12 (4-12) mmol/L BUN 24 H (9-20) mg/dL Creatinine 6.83 H (0.7-1.3) mg/dL Estim Creat Clear Calc 16 ml/min Estimated GFR 9 L (59 - ) Glucose 148 H (65-110) mg/dL Calcium 10.4 H (8.4-10.2) mg/dL Magnesium 2.5 H (1.6-2.3) mg/dL Total Bilirubin 0.5 (0.2-1.3) mg/dL AST 26 (17-59) U/L ALT 17 (6-50) U/L Alkaline Phosphatase 144 H (38-126) U/L Total Protein 8.5 H (6.3-8.2) g/dL Albumin 4.3 (3.5-5.1) g/dL <Jessenia Bridges PA-C - Last Filed: 01/28/25 01:34> Lab Results 01/27/25 Range/Units 22:24 WBC 5.5 (4.5-10.0) K/mm3 RBC 3.27 L (4.6-6.20) M/mm3 Hgb 10.2 L (14.0-18.0) g/dL Hct 32.4 L (42.0-52.0) % MCV 99.1 (80-100) fl MCH 31.2 (26-34) pg MCHC 31.5 L (32-36) g/dl RDW 15.2 H (11.5-14.5) % Plt Count 160 (150-375) k/mm3 MPV 9.5 (7.4-10.4) fl Immature Gran % (Auto) 0.5 (0-0.5) % Neut % (Auto) 66.7 (45.5-73.1) % Lymph % (Auto) 11.2 L (18.3-44.2) % [place] % (Auto) 15.4 H (2.6-8.5) % Eos % (Auto) 5.3 H (0-4.4) % Baso % (Auto) 0.9 (0.2-1.2) % Lymph # (Auto) 0.61 L (0.9-3.2) K/mm3 [place] # (Auto) 0.8 H (0.1-0.6) K/mm3 Eos # (Auto) 0.3 (0-0.3) K/mm3 Baso # (Auto) 0.1 (0.0-0.1) K/mm3 Abs Immat Gran (auto) 0.03 (0.00-0.031) K/mm3 Absolute Neuts (auto) 3.7 (1.3-6.7) K/mm3 Absolute Nucleated RBC 0.000 (0.0-0.012) K/mm3 Nucleated RBC % 0.0 (0.0-0.2) % Sodium 133 L (137-145) mmol/L Potassium 4.7 (3.4-5.0) mmol/L Chloride 91 L (98-107) mmol/L Carbon Dioxide 30 (22-30) mmol/L Anion Gap 12 (4-12) mmol/L BUN 24 H (9-20) mg/dL Creatinine 6.83 H (0.7-1.3) mg/dL Estim Creat Clear Calc 16 ml/min Estimated GFR 9 L (59 - ) Glucose 148 H (65-110) mg/dL Calcium 10.4 H (8.4-10.2) mg/dL Magnesium 2.5 H (1.6-2.3) mg/dL Total Bilirubin 0.5 (0.2-1.3) mg/dL AST 26 (17-59) U/L ALT 17 (6-50) U/L Alkaline Phosphatase 144 H (38-126) U/L Total Protein 8.5 H (6.3-8.2) g/dL Albumin 4.3 (3.5-5.1) g/dL <Lorelei Ricardo MD - Last Filed: 01/28/25 04:35> Imaging Data Attestation: I personally reviewed and interpreted this imaging study as follows: <Jessenia Bridges PA-C - Last Filed: 01/28/25 01:34> Radiologist's impression: STAT RAD CT brain: Right parietal 0.6 cm subdural hematoma. Parafalcine and right tentorial trace subdural hematomas. No midline shift or mass effect. <Jessenia Bridges PA-C - Last Filed: 01/28/25 01:34> ECG Data EKG #1: Attestation: I personally reviewed and interpreted this ECG as follows: <Jessenia Bridges PA-C - Last Filed: 01/28/25 01:34> ECG completion date: 01/27/25 <DICKSON Reeder Last Filed: 01/28/25 01:34> ECG completion time: 22:15 <DICKSON Reeder Last Filed: 01/28/25 01:34> EKG Interpretation: normal rate (73), sinus rhythm (first degree AV block) and non-specific ST changes <DICKSON Reeder Last Filed: 01/28/25 01:34> Critical Care Time Critical Care Time Critical Care Time: Yes <DICKSON Reeder Last Filed: 01/28/25 01:34> Total Critical Care Time: 40 <DICKSON Reeder Last Filed: 01/28/25 01:34> 67 (Please refer to [facility] for attestation.) <Lorelei Ricardo MD - Last Filed: 01/28/25 04:35> Discharge Plan Discharge Clinical Impression: Subdural hematoma, End-stage renal disease on hemodialysis <DICKSON Reeder Last Filed: 01/28/25 01:34> Patient Disposition: Acute Care Hospital <DICKSON Reeder Last Filed: 01/28/25 01:34> Condition: Serious <DICKSON Reeder Last Filed: 01/28/25 01:34> Patient Language: Uzbek <IDCKSON Reeder Last Filed: 01/28/25 01:34> Prescriptions: No Action amlodipine 10 mg tablet 10 mg PO DAILY clopidogrel 75 mg tablet 75 mg PO DAILY calcium acetate(phosphat bind) 667 mg capsule 667 mg PO QID cyclobenzaprine 10 mg tablet 10 mg PO Q8H PRN (Reason: restless leg(s)) furosemide 80 mg tablet 80 mg PO Q12H hydralazine 50 mg tablet 50 mg PO TID metoprolol succinate 25 mg tablet extended release 24 hr 12.5 mg PO DAILY peg-electrolyte soln 420 gram recon soln 240 ml PO DAILY PRN (Reason: constipation) ropinirole 0.25 mg tablet 0.25 mg PO HS Rx Instructions: 1-2 tabs rosuvastatin 10 mg tablet 10 mg PO HS <Jessenia Bridges PA-C - Last Filed: 01/28/25 01:34> Follow-up/Referrals: Terrell,Dallas Sylvester MD [Primary Care Provider] - <Jessenia Bridges PA-C - Last Filed: 01/28/25 01:34>
[2025-01-28 01:22] VITALS: BP 187/78; PULSE 75
[2025-01-28 01:26] VITALS: BP 187/78; PULSE 75; RESP 13; O2SAT 100
[2025-01-28 02:19] VITALS: BP 185/78; PULSE 87; RESP 18; O2SAT 99
== END 2025-01-28 02:20 | disposition short-term general hospital (02) ==
PROVIDERS: Emergency Medicine; Emergency Provider Physician Assistant; PCP Internal Medicine
DX: I62.00 Nontraumatic subdural hemorrhage, unspecified (principal); R40.4 Transient alteration of awareness; I12.0 Hypertensive chronic kidney disease with stage 5 chronic kidney disease or end stage renal disease; N18.6 End stage renal disease; Z99.2 Dependence on renal dialysis; I25.10 Atherosclerotic heart disease of native coronary artery without angina pectoris; D64.9 Anemia, unspecified; E78.5 Hyperlipidemia, unspecified
CPT/HCPCS: 36415; 70450; 71046; 80053; 83735; 85025; 93005; 96365; 99291; J2404

== ENCOUNTER 2025-04-13 16:44 | Inpatient (IN) | payer MEDICARE, MEDICAID, SELFPAY ==
--- OUTSIDE RECORDS SUMMARY | 2007-06-20 02:54 | XMS_ITS | Continuity of Care Document ---
Author Organization [facility] Address [address] [place] [address] Phone Care Team Providers Care Personnel Records Clerk Name Role Phone Rodriguez OD, Jostin Unavailable Unavailable Procedures Procedure Date Office/outpatient Visit, Est Remove Foreign Body From Eye Advance Directives Directive Yes / No Effective Date File Name No Information Encounters Encounter Description Practice Location Reason(s) For Visit Diagnoses Date Provider Providers Copied on Encounter Office/outpat ient Visit, Est [facility], [address] [place] [address] [address], [place], [place], [address], [place] tel:[phone] SEC [facility] No Information 0-200 7 Rodriguez OD Jostin. [address] [facility] , [address], [place], [address], [place]. tel:[phone] [facility], [address] [place] [address] [address], [place], [place], [address], [place] tel:[phone] SEC [facility] No Information 7-200 7 Son Chapman. [address] [facility], [address], [place], [place], [address], [place]. tel:[phone] Family History Family Member Type Diagnosis Age At Onset No Information Payers Payer name Insurance type Covered democrat ID Authoriza tion(s) No Information Social History Type Description Quantity Date Captured Comments Sex Male Smoking Status No Information Chief Complaint And Reason For Visit No Information Reason For Referral Reason For Referral No Information History Of Present Illness Encounter Date Complaint History Of Prese nt Illness No Information Functional Status Date Functional Assessmen t No Information Instructions Date Instruction Additional Infor mation No Information Assessments Type Assessment Date No Information Patient Care Teams Name Effective Dates (start - stop) Status Members No Information
--- OUTSIDE RECORDS SUMMARY | 2007-06-20 02:54 | XMS_ITS | Continuity of Care Document ---
Author Organization [facility] Address [address] [facility] [address] [place] [address] Phone Care Team Providers Care Lime Mixer Name Role Phone Rodriguez OD, Jostin Unavailable Unavailable Procedures Procedure Date Office/outpatient Visit, Est Remove Foreign Body From Eye Advance Directives Directive Yes / No Effective Date File Name No Information Encounters Encounter Description Practice Location Reason(s) For Visit Diagnoses Date Provider Providers Copied on Encounter Office/outpat ient Visit, Est [facility], [address] [place] [address] [address], [place], [place], [address], [place] tel:[phone] SEC [facility] No Information 0-200 7 Rodriguez OD Jostin. [address] [facility] , [address], [place], [address], [place]. tel:[phone] [facility], [address] [place] [address] [address], [place], [place], [address], [place] tel:[phone] SEC [facility] No Information 7-200 7 Son Chapman. [address] [facility], [address], [place], [place], [address], [place]. tel:[phone] Family History Family Member Type Diagnosis Age At Onset No Information Payers Payer name Insurance type Covered alliance party ID Authoriza tion(s) No Information Social History [...]
--- NOTE | ~2025-04-13 | US_ITS ---
EXAMINATION:US venous doppler LE LT INDICATION:Leg edema TECHNIQUE: Multiple grayscale, color flow and Doppler images of the left lower extremity deep venous systems were obtained and reviewed. COMPARISON:No prior studies for comparison. FINDINGS: The common femoral, superficial femoral and popliteal veins demonstrate normal respiratory variation, augmentation and compressibility. Color flow is also seen within the greater saphenous and profunda veins. There is deep venous thrombosis in the posterior tibial and peroneal veins. IMPRESSION: 1: Deep venous thrombosis of the left peroneal and posterior tibial veins. Reviewed, dictated and finalized at location O.
--- NOTE | ~2025-04-13 | XR_ITS ---
XR tibia fibula RT 2V 04/13/2025 17:42 INDICATION: Right leg pain after fall PROCEDURE: 2 views right tibia/fibula COMPARISON: No prior studies for comparison. FINDINGS: Fracture, dislocation or subluxation is not identified. There is atherosclerosis. The soft tissues appear within normal limits. No foreign bodies are identified. IMPRESSION: 1: NO ACUTE BONE OR JOINT ABNORMALITY IDENTIFIED. Reviewed, dictated and finalized at location O.
--- NOTE | ~2025-04-13 | CT_ITS ---
EXAMINATION: CT foot LT w con DATE: 04/13/2025 21:17 INDICATION: Left foot swelling, erythema and blistering post fall TECHNIQUE: High resolution computed tomography (CT) of the left foot and ankle was performed with 100 mL Omnipaque-350 intravenous contrast. Additional sagittal and coronal reconstructions were performed. Automated exposure control and iterative reconstruction technique were employed. The dose-length product was 684.12 mGy-cm. COMPARISON: None FINDINGS: There are numerous fractures as well as cortical erosions throughout the mid and hindfoot. This includes comminuted fracture and secondary erosion at the anterior process of the calcaneus, the navicular and medial cuneiform. Additional erosions and small fractures along the margins of the cuboid and base of the first metatarsal and erosion is without definitive fractures at the middle and lateral cuneiforms and base of the second-fourth metatarsals. Many of the small fracture fragments are displaced to the margins of a large abscess which extends between the majority the bones in the mid and hindfoot and also extends posterior to the ankle 16 cm cephalad to the level of the ankle joint line along the flexor longus longus tendon and distal muscle belly. There is dislocation along the Chopart joint as well as of the first metatarsal with respect to both the medial cuneiform and adjacent base of the first metatarsal. The main fragments of the navicular and medial cuneiform are displaced dorsally and medially. There are numerous foci of soft tissue gas beginning distally in the soft tissues about the great toe and extending to the soft tissues dorsal to the distal forefoot. There appears to be a skin ulcerations along the plantar aspect of the great toe. Foci of gas extend proximally along the flexor hallucis longus tendon sheath which appears to communicate with the more proximal abscess cavity with additional numerous foci of gas within the previous noted abscess cavity extending into the distal calf. Is also extension of a few foci of gas into the trabecular space of the calcaneus including the posterior body of the calcaneus where there appears be additional cortical erosions along its dorsal margin which along with the numerous erosions identified in the distal mid and hindfoot secondary osteomyelitis. There are also few tiny foci of intraosseous gas along the posterior medial margin of the tibial plafond. There appears to be some periosteal reaction along the base of the first metatarsal which suggests the osteomyelitis is to some extent subacute to chronic. There is skin thickening and subcutaneous edema throughout the distal calf consistent with secondary cellulitis with some blistering along the skin surface posteromedially. IMPRESSION: 1. No malalignment and extensive osseous destructive changes including both fractures/fragmentation of the bones and more erosive appearing osteolysis in the left mid and hindfoot. Appearance similar to advanced Charcot joint although no such changes are seen at the contralateral right foot and there is also a large abscess extending throughout the surrounding soft tissues in the mid/hindfoot and extending posterior to the ankle into the distal calf. This suggests a likely subacute combination of trauma and infection multiple regions of likely osteomyelitis involving the majority of the bones the mid and hindfoot including the posterior calcaneus and distal tibia. 2. In addition to scattered gas seen within the abscess which extends into the posterior distal calf there are numerous foci of soft tissue gas in the forefoot which raises concern for necrotizing fasciitis which is ultimately a clinical diagnosis. Reviewed, dictated and finalized at location A. IMPRESSION: 1. No malalignment and extensive osseous destructive changes including both fra ctures/fragmentation of the bones and more erosive appearing osteolysis in the left mid and hindfoot. Appearance similar to advanced Charcot joint although no such changes are seen at the contralateral right foot and there is also a larg e abscess extending throughout the surrounding soft tissues in the mid/hindfoot and extending posterior to the ankle into the distal calf. This suggests a lik belinda subacute combination of trauma and infection multiple regions of likely ost eomyelitis involving the majority of the bones the mid and hindfoot including t he posterior calcaneus and distal tibia. 2. In addition to scattered gas seen within the abscess which extends into the posterior distal calf there are numerous foci of soft tissue gas in the forefoo t which raises concern for necrotizing fasciitis which is ultimately a clinical diagnosis.
--- NOTE | ~2025-04-13 | CT_ITS ---
CT HEAD NON-CONTRAST Clinical History: fall Comparison: CT brain 01/28/2025 Technique: Unenhanced axial images skull base to vertex Coronal, sagittal reformats CT images acquired with automatic exposure control for dose reduction DLP: 681 mGy-cm Findings: Sulci, ventricles: Unremarkable. No intracerebral hemorrhage. Previous small right parietal subdural hemorrhage resolved. No evidence acute territorial infarct. No mass effect, midline shift. Bony calvarium intact. Visualized paranasal sinuses: Clear. Mastoid air cells: Clear. IMPRESSION: 1. No acute intracranial findings. Reviewed, dictated and finalized at location R.
--- NOTE | ~2025-04-13 | XR_ITS ---
XR foot LT 2V 04/13/2025 17:42 Indication: Left foot pain Procedure: 2 views left foot Comparison: No prior studies for comparison. Findings: There is comminuted displaced fracture of the calcaneus. There are multiple fracture fragments surrounding the tarsal bones. There is medial dislocation of the navicular bone. There is probable fracture at the base of the first metatarsal. There is Lisfranc fracture dislocation. There is osteopenia of the metatarsal heads limiting evaluation for erosions. There is a large amount of diffuse soft tissue swelling. Impression: 1: Multiple fractures of the hindfoot and tarsal bones with associated displacement of the calcaneal fracture fragments as well as the navicular bone. These findings may be posttraumatic, although underlying infection should be considered in the appropriate clinical setting. Reviewed, dictated and finalized at location O. Impression: 1: Multiple fractures of the hindfoot and tarsal bones with associated displace ment of the calcaneal fracture fragments as well as the navicular bone. These f indings may be posttraumatic, although underlying infection should be considere d in the appropriate clinical setting.
--- NOTE | ~2025-04-13 | XR_ITS ---
Examination: XR chest 1V portable Clinical History: ESRD and SOB Comparison: 01/27/2025 Technique: Portable AP Findings: Unchanged mild cardiomegaly. Lungs clear. No acute bony abnormality. IMPRESSION: 1. No acute cardiopulmonary findings given portable technique. Reviewed, dictated and finalized at location R.
--- OUTSIDE RECORDS SUMMARY | 2025-04-13 16:47 | XMS_ITS | Clinical Summary ---
Author Organization [facility] Address [address] [place] [address] Care Team Providers Care Director Of Food And Beverage Services Name Role Phone Dallas Tejada MD Primary Care Provider Dallas Tejada MD Unavailable [phone] Naomi Kaye MD Unavailable [phone] Source Comments [facility],non-owned Affiliates and Associated Physician Practices is amultiple site organization consisting of ambulatory clinics and hospital sitesin [place], [place], [place] and [place]. This disclosure is being madepursuant to the Care Everywhere program and may not contain all information available regarding this patient. Last updated 18.[facility] [employer] Allergies No known active allergies Medications * Be aware that medications may not be up to date on this document. Alwaysverify current medications with the patient. vitamin D, ergocalciferol, (DRISDOL) 82659 units capsule Receives at [facility] 3 9 Active furosemide (Lasix) 80 MG tablet Take 1 (one) tablet by mouth 2 times daily Active polyethylene glycol 3350 (MIRALAX) 17 GM/SCOOP powder Take 17 (seventeen) g by mouth once daily as needed for Constipation Active rOPINIRole (Requip) 0.25 MG tablet Take 1 (one) tablet to 2 (two) tablets by mouth at bedtime 2 Active rosuvastatin (Crestor) 10 MG tablet Take 1 (one) tablet by mouth at bedtime 90 tablet 3 4 Active calcium acetate (Phoslo) 667 MG capsule TAKE 5 CAPSULES BY MOUTH THREE TIMES DAILY WITH MEALS AND 3 CAPSULES TWICE DAILY WITH SNACKS 4 Active cyclobenzaprine (Flexeril) 10 MG tablet Take 1 (one) tablet by mouth every 8 hours as needed 5 Active pantoprazole EC (Protonix) 40 MG tablet Take 1 (one) tablet by mouth daily before breakfast 5 Active Benzocaine-Ment hol (throat lozenge) Take by mouth as needed (cough/thoat irritation) Active carvedilol (Coreg) 12.5 MG tablet Take 1 (one) tablet by mouth 2 times daily with morning and evening meal 60 tablet 2 01/30/2025 12:37 PM CDT 5 Active lisinopril (Prinivil; Zestril) 10 MG tablet Take 1 (one) tablet by mouth once daily 30 tablet 2 01/30/2025 12:37 PM CDT 5 Active aspirin (Aspirin) 81 MG chew tablet Take 1 (one) tablet by mouth once daily 30 tablet 2 01/30/2025 12:37 PM CDT 5 Active amLODIPine (Norvasc) 10 MG tablet Take 1 (one) tablet by mouth once daily 90 tablet 2 01/30/2025 12:37 PM CDT 5 Active hydrALAZINE (Apresoline) 50 MG tablet Take 1 (one) tablet by mouth 3 times daily 90 tablet 2 01/30/2025 12:37 PM CDT 5 Active traMADol (Ultram) 50 MG tablet Take 1 (one) tablet by mouth every 6 hours as needed for Pain 12 tablet 03/04/2025 10:24 AM CDT 5 Active Active Problems Problem Noted Date Diagnosed Date Hospital discharge follow-up 02/03/2025 Thyroid nodule 01/28/2025 SDH (subdural hematoma) 01/28/2025 Assessment & Plan (01/30/2025 11:40 AM CDT): -Patient presented with atraumatic SDHs -neurosurgery consulted, systolic BP <160 recommended Plan -Patient has been medically cleared for discharge 01/30. -Patient will continue hydralazine 50 mg, lisinopril 10 mg, and Coreg 12.5 mp for htn. All medications refilled and ordered. -All outpatient follow up appointments scheduled including with [facility] and repeat CT scan followed by NSGY outpatient appointment. -Neurosurgery consulted, recommend no acute intervention at this time, follow up in OP clinic Assessment & Plan (01/29/2025 4:37 PM CDT): -Patient presented with atraumatic SDHs -neurosurgery consulted, systolic BP <160 recommended Plan -neurosurgery consulted, recommend no acute intervention at this time, follow up in OP clinic -Ppx heparin started 01/29 after neurosurgery cleared for anticoagulation -continue monitoring neurological function -continue hydralazine 50 mg -continue lisinopril 10 mg per nephro recommendations -continue coreg 12.5mg per nephro recommendations Assessment & Plan (01/28/2025 9:03 PM CDT): -Patient presented with atraumatic SDHs Plan -neurosurgery consulted, recommend no acute intervention at this time, follow up in OP clinic -holding anticoagulation until 01/29 per recommendation -continue monitoring neurological function Essential hypertension 01/28/2025 Assessment & Plan (01/30/2025 11:40 AM CDT): Goal is SBP <160 Plan -continue hydralazine 50 mg outpatient. -continue lisinopril 10 mg per nephrology recommendations outpatient. -continue coreg 12.5mg per nephrology recommendations outpatient. Assessment & Plan (01/29/2025 4:37 PM CDT): Goal is SBP <160 Plan -continue hydralazine 50 mg -continue lisinopril 10 mg per nephrology recommendations -continue coreg 12.5mg per nephrology recommendations Assessment & Plan (01/28/2025 9:03 PM CDT): Goal is SBP <160 Plan -continue hydralazine 50 mg -continue lisinopril 10 mg per nephro recommendations -continue coreg 12.5mg per nephro recommendations Cerebrovascular accident (CVA), unspecified mech anism 01/28/2025 Assessment & Plan (01/30/2025 11:40 AM CDT): -Patient presented with atraumatic SDHs -neurosurgery consulted, systolic BP <160 recommended Plan -Patient has been medically cleared for discharge 01/30. -Patient will continue hydralazine 50 mg, lisinopril 10 mg, and Coreg 12.5 mp for htn. All medications refilled and ordered. -All outpatient follow up appointments scheduled including with [facility] and repeat CT scan followed by NSGY outpatient appointment. -Neurosurgery consulted, recommend no acute intervention at this time, follow up in OP clinic Assessment & Plan (01/29/2025 4:37 PM CDT): -Patient presented with atraumatic SDHs -neurosurgery consulted, systolic BP <160 recommended Plan -neurosurgery consulted, recommend no acute intervention at this time, follow up in OP clinic -Ppx heparin started 01/29 after neurosurgery cleared for anticoagulation -continue monitoring neurological function -continue hydralazine 50 mg -continue lisinopril 10 mg per nephro recommendations -continue coreg 12.5mg per nephro recommendations Assessment & Plan (01/28/2025 9:03 PM CDT): -Patient presented with atraumatic SDHs Plan -neurosurgery consulted, recommend no acute intervention at this time, follow up in OP clinic -holding anticoagulation until 01/29 per recommendation -continue monitoring neurological function ESRD (end stage renal disease) on dialysis 01/28 Assessment & Plan (01/30/2025 11:40 AM CDT): Plan -dialysis MWF -Received dialysis 01/29. Next dialysis 02/01 at outpatient clinic. Assessment & Plan (01/29/2025 4:37 PM CDT): -Nephrology consulted for ESRD Plan -dialysis MWF -Received dialysis 01/29 Hypertensive emergency 01/28/2025 Assessment & Plan (01/30/2025 11:40 AM CDT): Goal is SBP <160 Plan -continue hydralazine 50 mg outpatient. -continue lisinopril 10 mg per nephrology recommendations outpatient. -continue coreg 12.5mg per nephrology recommendations outpatient. Assessment & Plan (01/29/2025 4:37 PM CDT): Goal is SBP <160 Plan -continue hydralazine 50 mg -continue lisinopril 10 mg per nephrology recommendations -continue coreg 12.5mg per nephrology recommendations Acute encephalopathy 01/28/2025 Assessment & Plan (01/30/2025 11:40 AM CDT): -Patient presented with atraumatic SDHs -neurosurgery consulted, systolic BP <160 recommended Plan -Patient has been medically cleared for discharge 01/30. -Patient will continue hydralazine 50 mg, lisinopril 10 mg, and Coreg 12.5 mp for htn. All medications refilled and ordered. -All outpatient follow up appointments scheduled including with [facility] and repeat CT scan followed by NSGY outpatient appointment. -Neurosurgery consulted, recommend no acute intervention at this time, follow up in OP clinic Assessment & Plan (01/29/2025 4:37 PM CDT): -Patient presented with atraumatic SDHs -neurosurgery consulted, systolic BP <160 recommended Plan -neurosurgery consulted, recommend no acute intervention at this time, follow up in OP clinic -Ppx heparin started 01/29 after neurosurgery cleared for anticoagulation -continue monitoring neurological function -continue hydralazine 50 mg -continue lisinopril 10 mg per nephro recommendations -continue coreg 12.5mg per nephro recommendations Gastroesophageal reflux disease without esophagi tis 01/28/2025 Assessment & Plan (01/30/2025 11:40 AM CDT): -Protonix 40 mg daily continued outpatient. Assessment & Plan (01/29/2025 4:37 PM CDT): -protonix 40 mg daily Anemia of chronic kidney failure, stage 5 2024 Assessment & Plan (01/30/2025 11:40 AM CDT): Plan -dialysis MWF -Received dialysis 01/29. Next dialysis 02/01 at outpatient clinic. Assessment & Plan (01/29/2025 4:37 PM CDT): -Nephrology consulted for ESRD Plan -dialysis MWF -Received dialysis 01/29 S/P drug eluting coronary stent placement 2023 Assessment & Plan (01/30/2025 11:40 AM CDT): -Patient received PCI 05/2024 -Taking 81mg ASA, Plavix Plan -Cardiology cleared patient for monotherapy with 81 mg ASA, discontinuing plavix due to SDH. Patient will continue to take ASA outpatient. Assessment & Plan (01/29/2025 4:37 PM CDT): -Patient received PCI 05/2024 -Taking 81mg ASA, Plavix Plan -Cardiology cleared patient for monotherapy with 81 mg ASA, discontinuing plavix due to SDH Coronary artery disease invo lving [place] coronary artery of [place] heart with angina pectoris 05/25/2024 Nonobstructive atherosclerosis of coronary arter y 02/27/2024 Assessment & Plan (01/30/2025 11:40 AM CDT): -Patient received PCI 05/2024 -Taking 81mg ASA, Plavix Plan -Cardiology cleared patient for monotherapy with 81 mg ASA, discontinuing plavix due to SDH. Patient will continue to take ASA outpatient. Assessment & Plan (01/29/2025 4:37 PM CDT): -Patient received PCI 05/2024 -Taking 81mg ASA, Plavix Plan -Cardiology cleared patient for monotherapy with 81 mg ASA, discontinuing plavix due to SDH Diabetes mellitus type II, controlled 02/27/2024 History of tobacco use 02/27/2024 Left ventricular hypertrophy 02/27/2024 Grade II diastolic dysfunction 02/27/2024 Moderate tricuspid regurgitation 02/27/2024 Vitamin D deficiency 02/27/2024 Encounter regarding vascular access for dialysis for end-stage renal disease 05/27/2023 Pre-transplant evaluation for kidney transplant 07/30/2019 Overview (05/25/2024): Images from the original note were not included. Rj Cole 1980 Listing date: Referring Internet Ecommerce Specialist: Sharon Farnsworth Dialysis Info: Type: HD M,W,F Time: 03/10/2019 Blood Type: O POS Body mass index is 31.65 kg/m . ALERTS: pt will need FLOmax post txp ALERTS: pt has been using midodrine prn on dialysis this December - January 2024 (BPs requested) Certified Adapted Physical Educator: pt seen by Dr. Donato on 05/12/2024 ESRD 2/2 DM2 and HTN Past Medical History: Diagnosis Date Anuria q3 days, very little/could fill up bottom of cup CHF (congestive heart failure) ([facility]) Coronary artery disease seen on [facility] completed here on 05/25/2020. 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, was on metformin x 1 week, diet controlled diarrhea Esophageal reflux ESRD on hemodialysis ([facility]) BEN ([facility]) [employer] [place] M, W, F 08/11/19 History of blood transfusion 2018 when found out kidney failure Hypertension dx at age 38 Kidney stones twice in his early 20s, passed on own Kidney trouble Neuropathy Oliguria PVD (peripheral vascular disease) ([facility]) c/o claudication sometimes but thinks it's bc he lives on [employer] Past Surgical History: Procedure Laterality Date A-V [...] OTHER SURGERY all teeth removed Renal Biopsy 2019 [facility] [place] Retinal Detachment Repair Bilateral Social History Socioeconomic [...] the etiology og ESRD on HE since 2018 HTN Mild calcifications of the iliac vessels will need additional imaging annually to assess for advancing vessel disease that renders him non-transplantable Complete all phases of the transplant evaluation Present to [facility] for approval/denial/ versus more testing [...] selection committee. Nephrology Clinic Appt w/: Dr. Valentine Date: 01/21/2024 A/P: HPI: Rj Cole is [...] He is currently on MWF hemodialysis in [facility] 2) Cardiovascular Disease - Due to the risk of CAD in patients with ESKD, Cardiac Cath was performed on 05/26/20 which showed non obstructive Coronary artery disease. Medical management of nonobstructive CAD and aggressive modification of atherosclerotic risk factors is planned. - He will be due for a repeat [facility] next year according to protocol. 3) Hypertension [...] male with the following diagnoses presenting to [facility] for follow up/evaluation of Nonobstructive atherosclerosis of coronary artery [I25.10] Impression: Nonobstructive atherosclerosis of coronary artery (primary encounter diagnosis) Pre-transplant evaluation for kidney transplant Left ventricular hypertrophy Grade II diastolic dysfunction Moderate tricuspid regurgitation ESRD on hemodialysis ([facility]) Controlled type 2 diabetes mellitus with other specified complication, without long-term current use of insulin ([facility]) History of tobacco use NYHA Class I [...] Takes midodrine on HD days if needed Internet Ecommerce Specialist : Sharon Farnsworth [facility] 05/2020 with nonobstructive CAD, mild disease in mLAD Never started on statin therapy, LDL 70 12/2023 ASCVD: CT Calcium (as part of stress test) 02/06/2024 with calcium score in the left main artery 302.4, LAD of 574.0, LCX 53.4and [id number]. HTN + DMT2 history with end organ [...] history significant for HTN, DMT2 (dx age [age], not on insulin), bilateral eye diabetic retinopathy s/p corrective surgery, ESRD on HD, nonobstructive CAD ([facility] 05/2020), HLD, BPH, RLS, history of tobacco use. He was last seen in the [facility] by Dr Garg on 05/10/2020 [...] artery 302.4, LAD of 574.0, LCX 53.4and [id number]. Total calcium score is 2473.4. According to [...] ventricle. > Dictated by Rosy Florian MD (High Worker) 02/06/2024 11:30 AM I, Carter Mcgregor MD have personally reviewed and interpreted this [...] evidence of ischemia at achieved workload. Catherization [facility] 05/25/2020 HEMODYNAMIC FINDINGS: LV:148/28 mm Hg [...] ascites and mesenteric/ retroperitoneal stranding/edema. Trenton Shaw, WIND TURBINE PERFORMANCE ENGINEER-MEETING/EVENT PLANNER Pertinent Previous Committee Presentations: [facility] notes: 05/10/2022 Committee Discussion Details: Pt's case presented at [facility] today to discuss his candidacy [...] DU: records scanned in under media 07/31/2023 2/14/10/02/2023 10/30/2023 12/04/2023 01/06/2024 WBCs from [facility]: 07/31/2023 [...] 44) LV RWT 0.402 LV mass 2D [id number] g (Range: 96 - 200) LV mass [...] artery 302.4, LAD of 574.0, LCX 53.4and [id number]. Total calcium score is 2473.4. According to [...] artery 302.4, LAD of 574.0, LCX 53.4and [id number]. Total calcium score is 2473.4. According to [...] race matched control. 4. Enlarged left ventricle. C: 04/27/2024 Conclusion 50% proximal/mid LAD stenosis, ischemic [...] or text me on my cell phone [phone]. I appreciate the opportunity to participate in the care of your patient and look forward to being of service in the future as well. Sincerely, Jose Cedillo MD, PhD, [facility]: 05/25/2020 (completed given length of time DM2) [...] mesenteric/retroperitoneal stranding/edema. ABIs: 01/07/2024 [facility]01/07/2024 INDINGS: A marker machine attendant radiograph remarkable, other than calcification of iliac [...] Impression: It is the impression of this executive secretary social welfare that Rj Cole has several positive factors for Kidney from a psychosocial perspective. Patient appears to have appropriate knowledge of illness. Patient has sufficient insurance coverage and stable financial situation for post transplant needs. No concerns regarding substance abuse, legal issues, or mental health needs. Patient has adequate support system and appropriate discharge plan. Plan: special delivery worker to provide supportive services as needed. Patient appears to be a reasonable candidate for transplant from a psychosocial perspective. -Post transplant arrangement forms are needed prior to being listed. Psychiatric Consult Recommended: No Transplant R Developer: Katherine Joaquin LMSW Abdominal Transplant R Developer [phone] DOCK COORDINATOR Forms: Transplant Caregiver Confirmation Note Caregiver Confirmation Date Primary Name of Primary: [place] Relationship: girlfriend - DOCK COORDINATOR form received on 01/21/24 - Confirmed via telephone on 01/27/24 Secondary Name of Secondary: Dorcas Relationship: sister - DOCK COORDINATOR form received on 01/21/24 - Confirmed via [...] listed or per Transplant Team Referral Gayatri Goldman RD/LD Items Still Pending: RVSP 57 - will need to repeat/fluid restrictions, DSE submaximal - will need to complete nuc med stress/cards appt 02/27/2024, labs: low Vit D, WBC intermittently low, eosinophil counts intermittently elevated, platelets intermittently low, recommend MMR booster and hep A vaccination Immature arteriovenous fistula 04/23/2019 Hyponatremia 02/18/2019 Assessment & Plan (01/30/2025 11:40 AM CDT): -Patient found to have a Na+=125 (01/30)<132 (01/29). This is most likely worsening hyponatremia in the setting of recent dialysis. No intervention required at this time. Plan -Patient to receive repeat BMP in dialysis outpatient. Assessment & Plan (01/29/2025 4:37 PM CDT): -patient found to have a Na of 132 Plan -encouraging PO intake ESRD (end stage renal disease) 02/09/2019 Assessment & Plan (01/28/2025 9:03 PM CDT): -nephrology consulted, receiving HD 01/29 Complication of arteriovenous dialysis fistula Encounters Date Type Department Care Team Description 04/07/2025 11:30 AM CDT Office Visit [facility] - Neurosurgery [address] [place] [address], [place] [address] Massimo Heredia MD SDH (subdural hematoma) (HCC) (Primary Dx) 04/07/2025 Travel 04/01/2025 10:54 AM CDT - 04/01/2025 11:59 PM CDT Hospital Encounter [facility] Imaging Services - MRI [address] [place] [address] Massimo Heredia MD Discharge Disposition: Home or Self Care 04/01/2025 10:20 AM CDT - 04/01/2025 10:53 AM CDT Hospital Encounter [facility] Imaging Services - MRI [address] [place] [address] Massimo Heredia MD Discharge Disposition: Home or Self Care 03/24/2025 Refill [facility] - Cardiology [address], [facility] [address] [place] [address] Trenton Shaw, WIND TURBINE PERFORMANCE ENGINEER-MEETING/EVENT PLANNER Refill Request 03/11/2025 Travel 03/04/2025 2:15 PM CDT Office Visit [facility] - Neurosurgery [address] [place] [address], [place] [address] Mala Upton, WIND TURBINE PERFORMANCE ENGINEER-MEETING/EVENT PLANNER Massimo Heredia MD SDH (subdural hematoma) (HCC) (Primary Dx) 03/04/2025 11:19 AM CDT - 03/04/2025 11:59 PM CDT Hospital Encounter [facility] [address] [place] [address] Mala Upton, WIND TURBINE PERFORMANCE ENGINEER-MEETING/EVENT PLANNER Discharge Disposition: Home or Self Care 03/04/2025 9:30 AM CDT Office Visit [facility] - Orthopedics [address] [place] [address], [place] [address] Sanjeev Ramsey MD McCutchen, Kailey J, WIND TURBINE PERFORMANCE ENGINEER-MEETING/EVENT PLANNER Closed fracture of left foot, initial encounter (Primary Dx); Charcot joint of left foot, non-diabetic 03/04/2025 9:16 AM CDT - 03/04/2025 11:59 PM CDT Hospital Encounter [facility] [address] [facility] [place] [address] Sanjeev Ramsey MD Discharge Disposition: Home or Self Care 03/04/2025 Travel 03/03/2025 Orders Only [facility] - Orthopedics [address] [place] [phone] Sanjeev Ramsey MD Closed fracture of left foot, initial encounter 02/08/2025 Telephone [facility] - Orthopedics [address] [place] [phone] Cait Downs Appointment 02/06/2025 12:27 AM CDT - 02/06/2025 12:37 PM CDT Emergency [facility] [address] [place] [address] Allyson Casiano MD Byrne, Laurie E, MD Acute intractable headache, unspecified headache type; Left foot pain; Closed fracture of left foot with delayed healing, subsequent encounter Discharge Disposition: Home or Self Care 02/05/2025 Travel 02/04/2025 Telephone Transitional Care at [address] [phone] Indy Conte RN Results 02/03/2025 2:30 PM CDT Office Visit Transitional Care at [address] [phone] Josr Lunsford MD Hospital discharge follow-up (Primary Dx); SDH (subdural hematoma) (HCC); Hyponatremia 02/03/2025 Results Follow-Up Transitional Care at [address] [phone] Sophie Billingsley, WIND TURBINE PERFORMANCE ENGINEER-MEETING/EVENT PLANNER 02/01/2025 Telephone Transitional Care at [facility] [address] [place] [phone] Laura Fuller, billiard table repairer 01/28/2025 2:43 AM CDT - 01/30/2025 1:00 PM CDT Hospital Encounter [facility] [address] [place] [address] Manuel Dyer III, MD Bastin, Taylor J, MD Internal Medicine Discharge Disposition: Home or Self Care 01/28/2025 Travel from Last 3 Months Immunizations Immunization Administration [...] Types Packs/Day Years Used Date Smoking Tobacco: Never Cigars Qu it: 02/09/2018 Smokeless Tobacco: Never Tobacco Cessation:Counseling Given: No Comments:a couple cigars on a weekend when he drank, denies being a heavy drinker, maybe only drank once a month, quit in 2018 Last cigar use beginning of November 2023 Alcohol Use Standard Drinks/Week Comments No 0 (1 standard drink = 0.6 oz pur e alcohol) AUDIT-C Answer Date Recorded Q1: How often do you have a drink containing alcohol? Never 01/28/2025 Q2: How many drinks containi ng alcohol do you have on a typical day when you are drinking? Patient does not drink Q3: How often do you have si x or more drinks on one occasion? Never 01/28/2025 PHQ-2 Answer Date Recorded Patient Health Questionnaire-2 Score 0 03/04/2025 Sex and Gender Information Value Date Recorded Sex Assigned at Not on file Legal Sex Male 1:41 PM CDT Gender Identity Not on file Sexual Orientation Not on file Last Filed Vital Signs Vital Sign Reading Time Taken Comments Blood Pressure 156/77 04/07/2025 11:29 AM CDT Pulse 71 04/07/2025 11:29 AM CDT Temperature 36.3 C (97.3 F) 04/07/2025 11:26 AM CDT Respiratory Rate 14 02/06/2025 7:33 AM CDT Oxygen Saturation 98% 04/07/2025 11:26 AM CDT Inhaled Oxygen Concentration - - Weight 99.8 kg (220 lb) 04/07/2025 11:26 AM CDT Height 182.9 cm (6') 04/07/2025 11:26 AM CDT Body Mass Index 29.84 04/07/2025 11:26 AM CDT Plan of Treatment Upcoming Encounters Date Type Department Care Team (Late st Contact Info) Description 05/25/2025 2:15 PM ELECTROPHYSIOLOGY TECH Appointment [facility] [address] [place], [place] [phone] Health Maintenance Due Date Last Done Comments COLOGUARD (AGES 45-75) - COLON CA SCREENING 1978 CT COLONOGRAPHY - COLON CA SCREENING 1978 FIT - COLON CA SCREENING 1978 FLEX SIG - COLON CA SCREENING 1978 MEDICARE AWV 12 MONTHS 1978 DTAP/TDAP/TD VACCINES (1 - Tdap) 1997 PNEUMOCOCCAL VACCINE (2 of 2 - PPSV23, PCV20, or PCV21) 06/19/2019 04/24/2019 HEPATITIS B VACCINE (6 of 6 - Risk Dialysis Recombivax 3-dose series) 12/30/2021 12/30/2020, 10/12/2019, 06/15/2019, Additional history exists DIABETES RETINOPATHY SCREENING 02/27/2024 DIABETES-FOOT EXAM WITH MONOFILAMENT 02/27/2024 DIABETES-HGB A1C 11/10/2024 05/12/2024, , 05/12/2020, Additional history exists COVID-19 VACCINE ( season) 2025 06/09/2021, 10/17/2020 INFLUENZA VACCINE (#1) 2025 , 04/25/2020, 03/22/2020, Additional history exists ZOSTER VACCINE (1 of 2) 2028 COLON MONITORING 01/27/2034 01/28/2024, 01/28/2024 COLONOSCOPY - COLON CA SCREENING 01/27/2034 01/28/2024, 01/28/2024 Colorectal Cancer Screening 01/27/2034 HEPATITIS C SCREENING Completed 01/07/2024, 020 HIV SCREENING Completed 01/07/2024, 10/01/2019 DEPRESSION SCREENING Completed 03/04/2025 HIB VACCINE Aged Out No longer eligi [...] this topic Medical Devices Implanted Type Area Duct Maker Device Identifier Shelf Expiration Date Model / Serial / Lot Stent Cor Giovanni 3.50 X 18rx Drg Elut - [id number] Implanted:Qty: 1 on 06/11/2024 by Jose Cedillo MD at [facility] Left: Coronary [employer] [id number] 06/11/2026 [id number] / [id number] / [id number] Procedures Procedure Name Priority Date/Time Associated Diagnosis Comments MRI BRAIN WWO CONTRAST Routine 04/01/2025 12:14 PM CDT SDH (subdural hematoma) (HCC) MRI ANGIO BRAIN ARTERIAL WO CONT Routine 04/01/2025 12:00 PM CDT SDH (subdural hematoma) (HCC) CT HEAD WO CONTRAST STAT 03/04/2025 1 1:28 AM CDT SDH (subdural hematoma) (HCC) XR FOOT LEFT 3VW OR MORE Routine 03/04/2025 9:20 AM CDT Closed fracture of left foot, initial encounter XR TIBIA FIBULA LEFT 2VW STAT 02/06/2025 9:24 AM CDT Left foot pain CT FOOT LEFT WO CONTRAST STAT 02/06/2025 8:00 AM CDT Left foot pain XR FOOT LEFT 2VW STAT 02/06/2025 4:50 AM CDT Acute intractable headache, unspecified headache type XR ANKLE LEFT 3VW OR MORE STAT 02/06/2025 4:50 AM CDT Acute intractable headache, unspecified headache type TYPE + SCREEN PANEL STAT 02/06/2025 4 :12 AM CDT TSH REFLEX FREE T4 STAT 02/06/2025 4: [address] HEAD WO CONTRAST STAT 02/06/2025 1 2:13 AM CDT Acute intractable headache, unspecified headache type TYPE + SCREEN PANEL STAT 02/05/2025 1 1:05 PM CDT PT-INR STAT 02/05/2025 11:05 PM CDT COMPREHENSIVE METABOLIC PANEL STAT 02/05/2025 11:05 PM CDT CBC W AUTO DIFFERENTIAL STAT 02/05/2025 11:05 PM CDT BASIC METABOLIC PANEL (CALCIUM TOTAL) Routine 02/03/2025 2:54 PM CDT Hyponatremia BASIC METABOLIC PANEL (CALCIUM TOTAL) AM Draw 01/30/2025 2:43 AM CDT ESRD (end stage renal disease) on dialysis (HCC) CBC W/O DIFFERENTIAL AM Draw 01/30/2025 2:43 AM CDT Anemia of chronic kidney failure, stage 5 (HCC) CT HEAD WO CONTRAST STAT 01/29/2025 5 :52 PM CDT SDH (subdural hematoma) (HCC) CARDIAC EKG ORDER 01/29/2025 12: 56 PM CDT HEPATITIS B SURFACE ANTIGEN W RFLX CONFIRMATION STAT 01/29/2025 12:01 PM CDT ESRD (end stage renal disease) (HCC) HEMODIALYSIS INPATIENT Routine 01/29/2025 9:10 AM CDT OT EVAL AND TREAT Routine 01/29/2025 8:2 2 AM CDT CBC W AUTO DIFFERENTIAL AM Draw 01/29/2025 1:06 AM CDT SDH (subdural hematoma) (HCC) BASIC METABOLIC PANEL (CALCIUM TOTAL) AM Draw 01/29/2025 1:06 AM CDT Type 2 diabetes mellitus with chronic kidney disease on chronic dialysis, unspecified whether computer terminal operator insulin use (HCC) PHOSPHORUS BLOOD Routine 01/29/2025 1:06 AM CDT Type 2 diabetes mellitus with chronic kidney disease on chronic dialysis, unspecified whether care home insulin use (HCC) CT HEAD WO CONTRAST STAT 01/28/2025 1 0:00 AM CDT Cerebrovascular accident (CVA), unspecified mechanism (HCC) Thyroid nodule SDH (subdural hematoma) (HCC) Essential hypertension COMPREHENSIVE METABOLIC PANEL STAT 01/28/2025 9:25 AM CDT Type 2 diabetes mellitus with chronic kidney disease on chronic dialysis, unspecified whether computer terminal operator insulin use (HCC) CBC W AUTO DIFFERENTIAL STAT 01/28/2025 9:25 AM CDT Type 2 diabetes mellitus with chronic kidney disease on chronic dialysis, unspecified whether care home insulin use (HCC) GLUCOSE - POINT OF CARE Routine 01/28/2025 9:23 AM CDT EKG 12-LEAD STAT 01/28/2025 3:59 AM CDT Cerebrovascular accident (CVA), unspecified mechanism (HCC) TEG 6S PLATELET MAPPING STAT 01/28/2025 3:51 AM CDT TROPONIN-I HIGH SENSITIVE STAT 01/28/2025 3:48 AM CDT PTT STAT 01/28/2025 3:48 AM CDT PT-INR STAT 01/28/2025 3:48 AM CDT COMPREHENSIVE METABOLIC PANEL STAT 01/28/2025 3:48 AM CDT CBC W AUTO DIFFERENTIAL STAT 01/28/2025 3:[address] ANGIO BRAIN AND NECK STAT 01/28/2025 3:24 AM CDT Cerebrovascular accident (CVA), unspecified mechanism (HCC) CT HEAD WO CONTRAST STAT 01/28/2025 3 :02 AM CDT Cerebrovascular accident (CVA), unspecified mechanism (HCC) GLUCOSE - POINT OF CARE Routine 01/28/2025 2:48 AM CDT HEMOGLOBIN A1C - POINT OF CARE (AMB) [...] Recently Relevant to Health Maintenance Results * MRI Brain Wwo Contrast (04/01/2025 12:14 PM CDT) Anatomical Region Laterality Modality Head Magnetic Resonan ce 04/01/2025 2:20 PM CDT Impressions 04/01/2025 2:40 PM CDT IMPRESSION: 1. No acute infarct. No focal enhancing parenchymal lesion or arteriovenous malformation identified. 2. There is lack of FLAIR suppression in the prepontine and premedullary cistern. Finding is likely artifactual. Alternatively this could represent trace subarachnoid hemorrhage Recommend attention on follow-up. No definite evidence for residual subdural hemorrhage identified. 3. Punctate chronic microhemorrhages involving bilateral cerebral cortex, related to chronic hypertension. 4. No large vessel occlusion around the [place]. > Interpreting Provider: Molly Loco MD on 04/01/2025 2:40 PM Narrative 04/01/2025 2:40 PM CDT MRI BRAIN AND MRA BRAIN NONCONTRAST DATE: 04/01/2025 12:00 PM HISTORY: S06.5XAA: SDH (subdural hematoma) (HCC). TECHNIQUE: Multiplanar and multisequence MR imaging of the brain was performed with and without intravenous contrast according to standard protocol. MR angiography of the [id number] was performed using a ownb-cy-yyngxi technique without contrast. CONTRAST: Not known COMPARISON: None. FINDINGS: MRI BRAIN: Minimal periventricular white matter hyperintensity. Brain parenchymal signal intensity is otherwise normal. Porter-white differentiation is maintained. There is lack of FLAIR suppression in the prepontine and premedullary cistern. Finding is likely artifactual. No evidence for abnormal enhancement or dark signal on the GRE images identified in this location.. No diffusion restriction to suggest acute infarct is seen. Multifocal chronic microhemorrhages identified scattered in bilateral cerebral cortices. No focal enhancing brain parenchymal lesion seen. Normal ventricular size. No midline shift. Patent basal cisterns. Vascular flow-voids are maintained. Clear paranasal sinuses. Clear mastoid air cells. MRA BRAIN: The distal internal carotid arteries are patent without focal narrowing or occlusion. The anterior and middle cerebral arteries are patent without focal narrowing. The vertebral arteries are codominant. The vertebral and basilar arteries are patent without focal narrowing or occlusion. The posterior cerebral arteries are patent without focal narrowing. No aneurysm or arteriovenous malformation is identified. Procedure Note Molly Loco MD - 04/01/2025 MRI BRAIN AND MRA BRAIN NONCONTRAST DATE: 04/01/2025 12:00 PM HISTORY: S06.5XAA: SDH (subdural hematoma) (HCC). TECHNIQUE: Multiplanar and multisequence MR imaging of the brain was performed with and without intravenous contrast according to standard protocol. MR angiography of the [id number] was performed using a obxe-ed-grkfzt technique without contrast. CONTRAST: Not known COMPARISON: None. FINDINGS: MRI BRAIN: Minimal periventricular white matter hyperintensity. Brain parenchymal signal intensity is otherwise normal. Porter-white differentiation is maintained. There is lack of FLAIR suppression in the prepontine and premedullary cistern. Finding is likely artifactual. No evidence for abnormal enhancement or dark signal on the GRE images identified in this location.. No diffusion restriction to suggest acute infarct is seen. Multifocal chronic microhemorrhages identified scattered in bilateral cerebral cortices. No focal enhancing brain parenchymal lesion seen.Normal ventricular size. No midline shift. Patent basal cisterns. Vascular flow-voids are maintained. Clear paranasal sinuses. Clear mastoid air cells. MRA BRAIN: The distal internal carotid arteries are patent without focal narrowingor occlusion. The anterior and middle cerebral arteries are patent without focal narrowing. The vertebral arteries are codominant. The vertebral and basilararteries are patent without focal narrowing or occlusion. The posterior cerebral arteries are patent without focal narrowing. No aneurysm or arteriovenous malformation is identified. IMPRESSION: 1. No acute infarct. No focal enhancing parenchymal lesion orarteriovenous malformation identified. 2. There is lack of FLAIR suppression in the prepontine and premedullary cistern. Finding is likely artifactual. Alternatively this couldrepresent trace subarachnoid hemorrhage Recommend attention on follow-up. Nodefinite evidence for residual subdural hemorrhage identified. 3. Punctate chronic microhemorrhages involving bilateral cerebralcortex, related to chronic hypertension. 4. No large vessel occlusion around the [place]. > Interpreting Provider: Molly Loco MD on 04/01/2025 2:40 PM Massimo Heredia MD MR ORDERABLES Final Result * MRI Angio Brain Arterial Wo Cont (04/01/2025 12:00 PM CDT) Anatomical Region Laterality Modality Head Magnetic Resonan ce 04/01/2025 2:20 PM CDT Impressions 04/01/2025 2:40 PM CDT IMPRESSION: 1. No acute infarct. No focal enhancing parenchymal lesion or arteriovenous malformation identified. 2. There is lack of FLAIR suppression in the prepontine and premedullary cistern. Finding is likely artifactual. Alternatively this could represent trace subarachnoid hemorrhage Recommend attention on follow-up. No definite evidence for residual subdural hemorrhage identified. 3. Punctate chronic microhemorrhages involving bilateral cerebral cortex, related to chronic hypertension. 4. No large vessel occlusion around the [place]. > Interpreting Provider: Molly Loco MD on 04/01/2025 2:40 PM Narrative 04/01/2025 2:40 PM CDT MRI BRAIN AND MRA BRAIN NONCONTRAST DATE: 04/01/2025 12:00 PM HISTORY: S06.5XAA: SDH (subdural hematoma) (HCC). TECHNIQUE: Multiplanar and multisequence MR imaging of the brain was performed with and without intravenous contrast according to standard protocol. MR angiography of the [id number] was performed using a ponm-vv-axabzf technique without contrast. CONTRAST: Not known COMPARISON: None. FINDINGS: MRI BRAIN: Minimal periventricular white matter hyperintensity. Brain parenchymal signal intensity is otherwise normal. Porter-white differentiation is maintained. There is lack of FLAIR suppression in the prepontine and premedullary cistern. Finding is likely artifactual. No evidence for abnormal enhancement or dark signal on the GRE images identified in this location.. No diffusion restriction to suggest acute infarct is seen. Multifocal chronic microhemorrhages identified scattered in bilateral cerebral cortices. No focal enhancing brain parenchymal lesion seen. Normal ventricular size. No midline shift. Patent basal cisterns. Vascular flow-voids are maintained. Clear paranasal sinuses. Clear mastoid air cells. MRA BRAIN: The distal internal carotid arteries are patent without focal narrowing or occlusion. The anterior and middle cerebral arteries are patent without focal narrowing. The vertebral arteries are codominant. The vertebral and basilar arteries are patent without focal narrowing or occlusion. The posterior cerebral arteries are patent without focal narrowing. No aneurysm or arteriovenous malformation is identified. Procedure Note Molly Loco MD - 04/01/2025 MRI BRAIN AND MRA BRAIN NONCONTRAST DATE: 04/01/2025 12:00 PM HISTORY: S06.5XAA: SDH (subdural hematoma) (HCC). TECHNIQUE: Multiplanar and multisequence MR imaging of the brain was performed with and without intravenous contrast according to standard protocol. MR angiography of the [id number] was performed using a alyj-wp-umvpum technique without contrast. CONTRAST: Not known COMPARISON: None. FINDINGS: MRI BRAIN: Minimal periventricular white matter hyperintensity. Brain parenchymal signal intensity is otherwise normal. Porter-white differentiation is maintained. There is lack of FLAIR suppression in the prepontine and premedullary cistern. Finding is likely artifactual. No evidence for abnormal enhancement or dark signal on the GRE images identified in this location.. No diffusion restriction to suggest acute infarct is seen. Multifocal chronic microhemorrhages identified scattered in bilateral cerebral cortices. No focal enhancing brain parenchymal lesion seen.Normal ventricular size. No midline shift. Patent basal cisterns. Vascular flow-voids are maintained. Clear paranasal sinuses. Clear mastoid air cells. MRA BRAIN: The distal internal carotid arteries are patent without focal narrowingor occlusion. The anterior and middle cerebral arteries are patent without focal narrowing. The vertebral arteries are codominant. The vertebral and basilararteries are patent without focal narrowing or occlusion. The posterior cerebral arteries are patent without focal narrowing. No aneurysm or arteriovenous malformation is identified. IMPRESSION: 1. No acute infarct. No focal enhancing parenchymal lesion orarteriovenous malformation identified. 2. There is lack of FLAIR suppression in the prepontine and premedullary cistern. Finding is likely artifactual. Alternatively this couldrepresent trace subarachnoid hemorrhage Recommend attention on follow-up. Nodefinite evidence for residual subdural hemorrhage identified. 3. Punctate chronic microhemorrhages involving bilateral cerebralcortex, related to chronic hypertension. 4. No large vessel occlusion around the [place]. > Interpreting Provider: Molly Loco MD on 04/01/2025 2:40 PM Massimo Heredia MD MR ORDERABLES Final Result * CT Head Wo Contrast (03/04/2025 11:28 AM CDT) Only the most recent of5 resultswithin the time period is included. Anatomical Region Laterality Modality Head Computed Tomogra phy 03/04/2025 12:0 4 PM CDT Impressions 03/04/2025 2:21 PM CDT IMPRESSION: 1. Interval complete resolution of the right cerebral convexity subdural hematoma. > Dictated by Vipul Dc MD, in the presence of Abel Bagley MD, (campus president). > Interpreting Provider: Vipul Dc MD on 03/04/2025 2:21 PM Narrative 03/04/2025 2:21 PM CDT PROCEDURE: CT HEAD WO CONTRAST DATE/TIME OF EXAM: 03/04/2025 11:29 AM CLINICAL INFORMATION: None relevant/not provided if blank. Indication: S06.5XAA: SDH (subdural hematoma) (HCC) Additional History: COMPARISON: CT head 01/29/2025. TECHNIQUE: Noncontrast CT brain was performed utilizing standard protocol. CT dose reduction technique was used, including Automated Exposure Control. FINDINGS: Interval complete resolution of the right cerebral convexity subdural hematoma. Persistent crowding at the level of the foramen magnum compatible with low-lying cerebellar tonsils. There is mild cerebral volume loss with associated ex vacuo ventricular dilatation. The basal cisterns are patent. No significant mass effect or midline shift is seen. The porter-white matter differentiation is normal. Periventricular white matter hypoattenuation is a nonspecific finding that may be indicative of chronic small vessel ischemic disease. There is atherosclerotic calcification of the carotid siphons and bilateral V4 segments of the vertebral arteries. No acute calvarial fracture is identified. Other than mild paranasal sinus disease, the visualized portions of the orbits, paranasal sinuses, and mastoids appear normal. Hyperostosis frontalis interna. Procedure Note Vipul Dc MD - 03/04/2025 PROCEDURE: CT HEAD WO CONTRAST DATE/TIME OF EXAM: 03/04/2025 11:29 AM CLINICAL INFORMATION: None relevant/not provided if blank. Indication: S06.5XAA: SDH (subdural hematoma) (HCC) Additional History: COMPARISON: CT head 01/29/2025. TECHNIQUE: Noncontrast CT brain was performed utilizing standard protocol. CT dose reduction technique was used, including Automated ExposureControl. FINDINGS: Interval complete resolution of the right cerebral convexity subdural hematoma. Persistent crowding at the level of the foramen magnum compatible with low-lying cerebellar tonsils. There is mild cerebral volume loss with associated ex vacuo ventricular dilatation. The basal cisterns are patent. No significant mass effect or midline shift is seen. The porter-white matter differentiation is normal. Periventricular white matter hypoattenuation is a nonspecific findingthat may be indicative of chronic small vessel ischemic disease. There is atherosclerotic calcification of the carotid siphons and bilateral V4 segments of the vertebral arteries. No acute calvarial fracture is identified. Other than mild paranasal sinus disease, the visualized portions of the orbits, paranasal sinuses, and mastoids appear normal. Hyperostosis frontalis interna. IMPRESSION: 1. Interval complete resolution of the right cerebral convexity subdural hematoma. > Dictated by Vipul Dc MD, in the presence of Abel Bagley MD, (campus president). > Interpreting Provider: Vipul Dc MD on 03/04/2025 2:21 PM Mala Upton [employer] PERFORMANCE ENGINEER-MEETING/EVENT PLANNER CT ORDERABLES Final R esult * XR Foot Left 3Vw or More (03/04/2025 9:20 AM CDT) Anatomical Region Laterality Modality Ankle / Foot Computed Radiogr aphy 03/04/2025 10:4 8 AM CDT Narrative 03/04/2025 10:53 AM CDT PROCEDURE: XR FOOT LEFT 3VW OR MORE, DATE/TIME OF EXAM: 03/04/2025 9:20 AM, LOCATION [facility] INDICATION: S92.902A: Closed fracture of left foot, initial encounter ADDITIONAL CLINICAL INFORMATION: Ordering Provider Reason For Exam: fracture COMPARISON: Left foot radiograph from 02/06/2025. FINDINGS/IMPRESSION: Redemonstration of several fractures including the calcaneus, navicular, all 3 cuneiforms, and the first metatarsal base with severe subluxation of the navicular-medial cuneiform and first tarsometatarsal joints. Alignment is not changed compared to prior exam. 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 A plantar calcaneal enthesophyte is present. Atherosclerotic calcifications of the vasculature. The report was drafted by Mihir Deras MD (administration vice president) 03/04/2025 10:51 AM. > Dictated by High Worker Geovanna Barajas MD have personally reviewed and interpreted this examination/study. > Interpreting Provider: Geovanna Uribe MD on 03/04/2025 10:53 AM Procedure Note Geovanna Uribe MD - 03/04/2025 PROCEDURE: XR FOOT LEFT 3VW OR MORE, DATE/TIME OF EXAM: 03/04/2025 9:20 AM, LOCATION [facility] INDICATION: S92.902A: Closed fracture of left foot, initial encounter ADDITIONAL CLINICAL INFORMATION: Ordering Provider Reason For Exam: fracture COMPARISON: Left foot radiograph from 02/06/2025. FINDINGS/IMPRESSION: Redemonstration of several fractures including the calcaneus, navicular, all 3 cuneiforms, and the first metatarsal base with severe subluxationof the navicular-medial cuneiform and first tarsometatarsal joints.Alignment is not changed compared to prior exam. 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 A plantar calcaneal enthesophyte ispresent. Atherosclerotic calcifications of the vasculature. The report was drafted by Mihir Deras MD (administration vice president) 03/04/2025 10:51 AM. > Dictated by High Worker IGeovanna MD have personally reviewed and interpreted this examination/study. > Interpreting Provider: Geovanna Uribe MD on 03/04/2025 10:53 AM Sanjeev Ramsey MD DIAGNOSTIC IMAGING ORDERABL ES Final Result * XR Tibia Fibula Left 2Vw (02/06/2025 9:24 AM CDT) Anatomical Region Laterality Modality Lower Extremity Digital Radiogra phy 02/06/2025 9:33 AM CDT Impressions 02/06/2025 11:44 PM CDT IMPRESSION: No acute fracture of the tibia or fibula. > Dictated by Dorian Mancuso MD, (campus president). Scottie Barajas MD have personally reviewed and interpreted this examination/study. > Interpreting Provider: Scottie España MD on 02/06/2025 11:44 PM Narrative 02/06/2025 11:44 PM CDT PROCEDURE: XR TIBIA FIBULA LEFT 2VW, DATE/TIME OF EXAM: 02/06/2025 9:24 AM, LOCATION [facility] INDICATION: M79.672: Left foot pain ADDITIONAL CLINICAL INFORMATION: Ordering Provider Reason For Exam: fracture Technologist Note: Additional: COMPARISON: None. TECHNIQUE: Frontal and lateral radiographs of the tibia and fibula. FINDINGS: There is no fracture or osseous abnormality of the tibia or fibula. The knee and ankle alignments are normal. Partially visualized fractures of the calcaneus and navicular, better characterized on same-day CT of the left foot. Soft tissue swelling of the left foot/ankle. Vascular calcifications. Procedure Note Scottie España MD - 02/06/2025 PROCEDURE: XR TIBIA FIBULA LEFT 2VW, DATE/TIME OF EXAM: 02/06/2025 9:24 AM, LOCATION [facility] INDICATION: M79.672: Left foot pain ADDITIONAL CLINICAL INFORMATION: Ordering Provider Reason For Exam: fracture Technologist Note: Additional: COMPARISON: None. TECHNIQUE: Frontal and lateral radiographs of the tibia and fibula. FINDINGS: There is no fracture or osseous abnormality of the tibia or fibula. The knee and ankle alignments are normal. Partially visualized fractures ofthe calcaneus and navicular, better characterized on same-day CT of the left foot. Soft tissue swelling of the left foot/ankle. Vascularcalcifications. IMPRESSION: No acute fracture of the tibia or fibula. > Dictated by Dorian Mancuso MD, (campus president). I, Scottie España MD have personally reviewed and interpreted this examination/study. > Interpreting Provider: Scottie España MD on 02/06/2025 11:44 PM us Donya Rainey MD DIAGNOSTIC IMAGING ORDERABLES Final Result * CT Foot Left Wo Contrast (02/06/2025 8:00 AM CDT) Anatomical Region Laterality Modality Ankle / Foot Computed Tomogra phy 02/06/2025 8:10 AM CDT Impressions 02/06/2025 6:25 PM CDT IMPRESSION: Several fractures including of the calcaneus, navicular, all 3 cuneiforms, and the first metatarsal base with severe subluxation of the navicular-medial cuneiform and first tarsometatarsal joints. Some of these fractures appear subacute with periosteal reaction. Some could be acute. They are unhealed. 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 Report dictated by Kel Jung MD, (campus president). I, Brian Forrester MD have personally reviewed and interpreted this examination/study. > Interpreting Provider: Brian Forrester MD on 02/06/2025 6:25 PM Narrative 02/06/2025 6:25 PM CDT PROCEDURE: CT FOOT LEFT WO CONTRAST DATE/TIME OF EXAM: 02/06/2025 8:00 AM CLINICAL INFORMATION: None relevant/not provided if blank. Indication: M79.672: Left foot pain Additional History: COMPARISON: 02/06/2025 left foot x-ray TECHNIQUE: CT of the left foot without intravenous contrast was performed utilizing standard protocol. CT dose reduction technique was used, including Automated Exposure Control. FINDINGS: There are several fractures as follows: Comminuted mildly displaced fracture of the anterior process of the calcaneus. Mildly displaced fracture at the medial aspect of the navicular. Comminuted moderately to severely displaced fracture of the medial cuneiform. Mildly displaced fracture of the middle cuneiform. Mildly displaced fracture of the lateral cuneiform. Comminuted moderately displaced fracture of the first metatarsal base. There is periosteal reaction adjacent some of these fractures suggesting a subacute age. However there are not healed. Some could be acute. There is severe subluxation of the majority of the medial cuneiform relative to the navicular and first metatarsal base. There is soft tissue swelling. There is vascular calcification. Procedure Note Brian Forrester MD - 02/06/2025 PROCEDURE: CT FOOT LEFT WO CONTRAST DATE/TIME OF EXAM: 02/06/2025 8:00 AM CLINICAL INFORMATION: None relevant/not provided if blank. Indication: M79.672: Left foot pain Additional History: COMPARISON: 02/06/2025 left foot x-ray TECHNIQUE: CT of the left foot without intravenous contrast was performed utilizing standard protocol. CT dose reduction technique was used, including Automated ExposureControl. FINDINGS: There are several fractures as follows: Comminuted mildly displaced fracture of the anterior process of the calcaneus. Mildly displaced fracture at the medial aspect of the navicular. Comminuted moderately to severely displaced fracture of the medial cuneiform. Mildly displaced fracture of the middle cuneiform. Mildly displaced fracture of the lateral cuneiform. Comminuted moderately displaced fracture of the first metatarsal base. There is periosteal reaction adjacent some of these fractures suggestinga subacute age. However there are not healed. Some could be acute. There is severe subluxation of the majority of the medial cuneiform relative to the navicular and first metatarsal base. There is soft tissue swelling. There is vascular calcification. IMPRESSION: Several fractures including of the calcaneus, navicular, all 3cuneiforms, and the first metatarsal base with severe subluxation of the navicular-medial cuneiform and first tarsometatarsal joints. Some ofthese fractures appear subacute with periosteal reaction. Some could be acute. They are unhealed. 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 Report dictated by Kel Jnug MD, (campus president). I, Brian Forrester MD have personally reviewed and interpreted this examination/study. > Interpreting Provider: Brian Forrester MD on 02/06/2025 6:25 PM us Allyson Casiano MD CT ORDERABLES Final Result * XR Foot Left 2Vw (02/06/2025 4:50 AM CDT) Anatomical Region Laterality Modality Ankle / Foot Digital Radiogra phy 02/06/2025 6:25 AM CDT Narrative 02/06/2025 11:21 PM CDT PROCEDURE: XR ANKLE LEFT 3VW OR MORE, XR FOOT LEFT 2VW, DATE/TIME OF EXAM: 02/06/2025 4:50 AM, LOCATION [facility] INDICATION: R51.9: Acute intractable headache, unspecified headache type ADDITIONAL CLINICAL INFORMATION: Ordering Provider Reason For Exam: ?swelling, ?fracture (accession [id number]), ?fx (accession [id number]) COMPARISON: None. FINDINGS/IMPRESSION: Left Foot-Ankle Age-indeterminate comminuted fractures of medial and intermediate cuneiforms. Lateral dislocation of middle cuneiform. Medial cuneiform is also dislocated. Surrounding callus formation suggests subacute/chronic fracture. Age indeterminate displaced fracture of medial aspect of the navicular bone. Age-indeterminate comminuted fracture of medial process of calcaneus. Sclerosis of fracture margins suggest subacute/chronic fracture. Suspected healing fracture involving the fifth metatarsal base and proximal and lateral aspect of cuboid bone. Extensive vascular calcifications of vasculature. Calcaneal spur is present. Diffuse soft tissue swelling. Distal tibia and fibula are intact and well aligned without acute fracture or dislocation. The ankle mortise is intact. Bone density and texture are normal. The report was drafted by Mihir Deras MD (administration vice president) 02/06/2025 6:25 AM. IScottie MD have personally reviewed and interpreted this examination/study. > Interpreting Provider: Scottie España MD on 02/06/2025 11:21 PM Procedure Note Scottie España MD - 02/06/2025 PROCEDURE: XR ANKLE LEFT 3VW OR MORE, XR FOOT LEFT 2VW, DATE/TIME OFEXAM: 02/06/2025 4:50 AM, LOCATION [facility] INDICATION: R51.9: Acute intractable headache, unspecified headache type ADDITIONAL CLINICAL INFORMATION: Ordering Provider Reason For Exam: ?swelling, ?fracture (accession [id number]), ?fx (accession [id number]) COMPARISON: None. FINDINGS/IMPRESSION: Left Foot-Ankle Age-indeterminate comminuted fractures of medial and intermediate cuneiforms. Lateral dislocation of middle cuneiform. Medial cuneiform is also dislocated. Surrounding callus formation suggests subacute/chronic fracture. Age indeterminate displaced fracture of medial aspect of the navicular bone. Age-indeterminate comminuted fracture of medial process of calcaneus. Sclerosis of fracture margins suggest subacute/chronic fracture. Suspected healing fracture involving the fifth metatarsal base andproximal and lateral aspect of cuboid bone. Extensive vascular calcifications of vasculature. Calcaneal spur is present. Diffuse soft tissue swelling. Distal tibia and fibula are intact and well aligned without acutefracture or dislocation. The ankle mortise is intact. Bone density and texture are normal. The report was drafted by Mihir Deras MD (administration vice president) 02/06/2025 6:25 AM. Scottie Barajas MD have personally reviewed and interpreted this examination/study. > Interpreting Provider: Scottie España MD on 02/06/2025 11:21 PM us Allyson Casiano MD DIAGNOSTIC IMAGING ORDERABLES Fi nal Result * XR Ankle Left 3Vw or More (02/06/2025 4:50 AM CDT) Anatomical Region Laterality Modality Lower Extremity Digital Radiogra phy 02/06/2025 6:25 AM CDT Narrative 02/06/2025 11:21 PM CDT PROCEDURE: XR ANKLE LEFT 3VW OR MORE, XR FOOT LEFT 2VW, DATE/TIME OF EXAM: 02/06/2025 4:50 AM, LOCATION [facility] INDICATION: R51.9: Acute intractable headache, unspecified headache type ADDITIONAL CLINICAL INFORMATION: Ordering Provider Reason For Exam: ?swelling, ?fracture (accession [id number]), ?fx (accession [id number]) COMPARISON: None. FINDINGS/IMPRESSION: Left Foot-Ankle Age-indeterminate comminuted fractures of medial and intermediate cuneiforms. Lateral dislocation of middle cuneiform. Medial cuneiform is also dislocated. Surrounding callus formation suggests subacute/chronic fracture. Age indeterminate displaced fracture of medial aspect of the navicular bone. Age-indeterminate comminuted fracture of medial process of calcaneus. Sclerosis of fracture margins suggest subacute/chronic fracture. Suspected healing fracture involving the fifth metatarsal base and proximal and lateral aspect of cuboid bone. Extensive vascular calcifications of vasculature. Calcaneal spur is present. Diffuse soft tissue swelling. Distal tibia and fibula are intact and well aligned without acute fracture or dislocation. The ankle mortise is intact. Bone density and texture are normal. The report was drafted by Mihir Deras MD (administration vice president) 02/06/2025 6:25 AM. Scottie Barajas MD have personally reviewed and interpreted this examination/study. > Interpreting Provider: Scottie España MD on 02/06/2025 11:21 PM Procedure Note Scottie España MD - 02/06/2025 PROCEDURE: XR ANKLE LEFT 3VW OR MORE, XR FOOT LEFT 2VW, DATE/TIME OFEXAM: 02/06/2025 4:50 AM, LOCATION [facility] INDICATION: R51.9: Acute intractable headache, unspecified headache type ADDITIONAL CLINICAL INFORMATION: Ordering Provider Reason For Exam: ?swelling, ?fracture (accession [id number]), ?fx (accession [id number]) COMPARISON: None. FINDINGS/IMPRESSION: Left Foot-Ankle Age-indeterminate comminuted fractures of medial and intermediate cuneiforms. Lateral dislocation of middle cuneiform. Medial cuneiform is also dislocated. Surrounding callus formation suggests subacute/chronic fracture. Age indeterminate displaced fracture of medial aspect of the navicular bone. Age-indeterminate comminuted fracture of medial process of calcaneus. Sclerosis of fracture margins suggest subacute/chronic fracture. Suspected healing fracture involving the fifth metatarsal base andproximal and lateral aspect of cuboid bone. Extensive vascular calcifications of vasculature. Calcaneal spur is present. Diffuse soft tissue swelling. Distal tibia and fibula are intact and well aligned without acutefracture or dislocation. The ankle mortise is intact. Bone density and texture are normal. The report was drafted by Mihir Deras MD (administration vice president) 02/06/2025 6:25 AM. I, Scottie España MD have personally reviewed and interpreted this examination/study. > Interpreting Provider: Scottie España MD on 02/06/2025 11:21 PM us Allyson Casiano MD DIAGNOSTIC IMAGING ORDERABLES Fi nal Result * TSH REFLEX FREE T4 (02/06/2025 4:12 AM CDT) TSH 3.851 0.350 - 4.940 uIU/mL 02/06/2025 5:08 AM CDT [facility] Blood BLOOD SPECIMEN / Unknown Venipuncture / Unknown 02/06/2025 4:12 AM CDT 02/06/2025 4:18 AM CDT us Sebastián Liang MD LAB - CHEMISTRY ORDERABLES F inal Result [facility] [address] [place] [address], [facility] [phone] * TYPE + SCREEN PANEL (02/06/2025 4:12 AM CDT) Only the most recent of2 resultswithin the time period is included. Antibody Screen NEG 5:02 AM CDT [facility] ABO Rh O POS 02/06/2025 5:02 AM CDT [facility] Blood Bank BLOOD SPECIMEN / Unknown Venipuncture / Unknown 02/06/2025 4:12 AM CDT 02/06/2025 4:17 AM CDT us Allyson Casiano MD LAB - BLOOD BANK ORDERABLES Swathi l Result Performing Organization Address City/[facility]/ZIP Co de Phone Number [facility] [address] [place] [address], [facility] [phone] * (ABNORMAL) PT-INR (02/05/2025 11:05 PM CDT) Only the most recent of2 resultswithin the time period is included. Pathologist [facility] PT 14.9(H) 12.1 - 14.8 Seconds 02/05/2025 11:53 PM CDT [facility] INR 1.2 See Comment 02/05/2025 11:53 PM CDT [facility] Comment:The suggested therap eutic range for standard coumadin (warfarin) therapy is an INR of 2.0-3.0. For high-risk patients (Mechanical Mitral Valve Prosthesis, etc.), the suggested prophylactic therapeutic range is an INR of 2.5-3.5. Blood BLOOD SPECIMEN / Unknown Venipuncture / Unknown 02/05/2025 11:05 PM CDT 02/05/2025 11:15 PM CDT us Sebastián Liang MD LAB - COAGULATION ORDERABLES Final Result Performing Organization Address City/[facility]/ZIP Co de Phone Number [facility] [address] [place] [address], [facility] [phone] * (ABNORMAL) CBC W AUTO DIFFERENTIAL (02/05/2025 11:05 PM [facility]) Only the most recent of4 resultswithin the time period is included. WBC 5.2 4.0 - 10.7 x10E9/L 02/05/2025 11:21 PM [facility] RBC Count 3.51(L) 4.30 - 5.80 x10E12/L 02/05/2025 11:21 PM [facility] Hemoglobin 11.2(L) 13.3 - 17.5 g/dL 02/05/2025 11:21 PM [facility] Hematocrit 33.9(L) 38.7 - 51.1 % 02/05/2025 11:21 PM [facility] MCV 96.6 80.0 - 98.0 fL 02/05/2025 11:21 PM [facility] MCH 31.9 26.7 - 33.6 pg 02/05/2025 11:21 PM [facility] MCHC 33.0 31.7 - 36.3 g/dL 02/05/2025 11:21 PM [facility] RDW-CV 16.0(H) 11.3 - 14.8 % 02/05/2025 11:21 PM [facility] Platelet Count 173 150 - 420 x10E9/L 02/05/2025 11:21 PM [facility] MPV 9.5 7.8 - 11.4 fL 02/05/2025 11:21 PM [facility] Neutrophil % 68.0 41.0 - 74.0 % 02/05/2025 11:21 PM [facility] Lymphocyte % 9.9(L) 17.0 - 47.0 % 02/05/2025 11:21 PM [facility] Monocyte % 11.0 3.0 - 11.0 % 02/05/2025 11:21 PM [facility] Eosinophil % 9.5(H) 0.0 - 7.0 % 02/05/2025 11:21 PM [facility] Basophil % 1.2 0.0 - 1.6 % 02/05/2025 11:21 PM [facility] Immature Granulocytes % 0.4 0.0 - 1.0 % 02/05/2025 11:21 PM [facility] Neutrophil Absolute 3.52 1.60 - 7.50 x10E9/L 02/05/2025 11:21 PM [facility] Lymphocyte Absolute 0.51(L) 1.00 - 4.40 x10E9/L 02/05/2025 11:21 PM [facility] Monocyte Absolute 0.57 0.15 - 1.00 x10E9/L 02/05/2025 11:21 PM [facility] Eosinophil Absolute 0.49 0.00 - 0.60 x10E9/L 02/05/2025 11:21 PM [facility] Basophil Absolute 0.06 0.00 - 0.13 x10E9/L 02/05/2025 11:21 PM [facility] Blood BLOOD SPECIMEN / Unknown Venipuncture / Unknown 02/05/2025 11:05 PM CDT 02/05/2025 11:15 PM T us Sebastián Liang MD LAB - HEMATOLOGY ORDERABLES Final Result [address] [address], [facility] [phone] * (ABNORMAL) COMPREHENSIVE METABOLIC PANEL (02/05/2025 11:05 PM CDT) Only the most recent of3 resultswithin the time period is included. BUN 20 7 - 26 mg/dL 02/05/2025 11:41 PM [facility] Creatinine 6.24(H) 0.71 - 1.16 mg/dL 02/05/2025 11:41 PM [facility] Sodium 134(L) 136 - 145 mmol/L 02/05/2025 11:41 PM [facility] Potassium 4.9(H) 3.5 - 4.5 mmol/L 02/05/2025 11:41 PM [facility] Chloride 93(L) 98 - 107 mmol/L 02/05/2025 11:41 PM [facility] CO2 33(H) 22 - 29 mmol/L 02/05/2025 11:41 PM [facility] Glucose 148(H) 70 - 99 mg/dL 02/05/2025 11:41 PM [facility] Calcium 10.5(H) 8.4 - 10.2 mg/dL 02/05/2025 11:41 PM [facility] Protein Total 7.7 6.0 - 8.3 g/dL 02/05/2025 11:41 PM [facility] Albumin 4.1 3.4 - 5.0 g/dL 02/05/2025 11:41 PM [facility] Bilirubin Total 0.9 0.2 - 1.2 mg/dL 02/05/2025 11:41 PM [facility] Alkaline Phosphatase 115 40 - 150 U/L 02/05/2025 11:41 PM [facility] ALT 9 5 - 55 U/L 02/05/2025 11:41 PM [facility] AST 12 5 - 34 U/L 02/05/2025 11:41 PM [facility] Anion Gap 8 6 - 16 02/05/2025 11:41 PM [facility] BUN/Creatinine Ratio 3(L) 7 - 23 02/05/2025 11:41 PM [facility] Osmolality Calculated 283 275 - 295 mOsm/kg 02/05/2025 11:41 PM [facility] Albumin/Globulin Ratio 1.1 1.1 - 2.3 02/05/2025 11:41 PM [facility] eGFR by CKD-EPI 10(L) >=90 mL/min/1.7 3 m2 02/05/2025 11:41 PM [facility] Comment:Estimated Glomerular Filtration Rate (eGFR) calculated using the CKD-EPI Creatinine Equation (2020), per the National Kidney Foundation and [place] [employer]ph[employer] recommendations. Blood BLOOD SPECIMEN / Unknown Venipuncture / Unknown 02/05/2025 11:05 PM CDT 02/05/2025 11:15 PM [facility] us Sebastián Liang MD LAB - CHEMISTRY ORDERABLES F inal Result [facility] [address] [place] [address], [facility] [phone] * (ABNORMAL) BASIC METABOLIC PANEL (CALCIUM TOTAL) (02/03/2025 2:54 PM CDT) Only the most recent of3 resultswithin the time period is included. BUN 24 7 - 26 mg/dL 02/03/2025 4:30 PM [facility] Creatinine 7.47(H) 0.71 - 1.16 mg/dL 02/03/2025 4:30 PM [facility] Sodium 136 136 - 145 mmol/L 02/03/2025 4:30 PM [facility] Potassium 4.8(H) 3.5 - 4.5 mmol/L 02/03/2025 4:30 PM [facility] Chloride 96(L) 98 - 107 mmol/L 02/03/2025 4:30 PM [facility] CO2 32(H) 22 - 29 mmol/L 02/03/2025 4:30 PM [facility] Glucose 161(H) 70 - 99 mg/dL 02/03/2025 4:30 PM [facility] Calcium 10.1 8.4 - 10.2 mg/dL 02/03/2025 4:30 PM [facility] Anion Gap 8 6 - 16 02/03/2025 4:30 PM [facility] BUN/Creatinine Ratio 3(L) 7 - 23 02/03/2025 4:30 PM [facility] Osmolality Calculated 290 275 - 295 mOsm/kg 02/03/2025 4:30 PM [facility] eGFR by CKD-EPI 8(L) >=90 mL/min/1.7 3 m2 02/03/2025 4:30 PM [facility] Comment:Estimated Glomerular Filtration Rate (eGFR) calculated using the CKD-EPI Creatinine Equation (2020), per the National Kidney Foundation and [place] [employer]ph[employer] recommendations. Blood BLOOD SPECIMEN / Unknown Lab Venipuncture / Unknown 02/03/2025 2:54 PM CDT 02/03/2025 3:57 PM CDT us Sophie Billingsley [employer] ENGINEER-MEETING/EVENT PLANNER LAB - CHEMISTRY ORDERAB LES Final Result [facility] [address] [place] [address], [facility] [phone] * (ABNORMAL) CBC W/O DIFFERENTIAL (01/30/2025 2:43 AM CDT) [facility] WBC 4.7 4.0 - 10.7 x10E9/L 01/30/2025 3:05 AM [facility] RBC Count 3.22(L) 4.30 - 5.80 x10E12/L 01/30/2025 3:05 AM [facility] Hemoglobin 10.1(L) 13.3 - 17.5 g/dL 01/30/2025 3:05 AM [facility] Hematocrit 31.0(L) 38.7 - 51.1 % 01/30/2025 3:05 AM [facility] MCV 96.3 80.0 - 98.0 fL 01/30/2025 3:05 AM [facility] MCH 31.4 26.7 - 33.6 pg 01/30/2025 3:05 AM [facility] MCHC 32.6 31.7 - 36.3 g/dL 01/30/2025 3:05 AM [facility] RDW-CV 15.5(H) 11.3 - 14.8 % 01/30/2025 3:05 AM [facility] Platelet Count 196 150 - 420 x10E9/L 01/30/2025 3:05 AM [facility] MPV 9.7 7.8 - 11.4 fL 01/30/2025 3:05 AM [facility] Blood BLOOD SPECIMEN / Unknown Lab Venipuncture / Unknown 01/30/2025 2:43 AM CDT 01/30/2025 3:01 AM CDT us Mirna Zuniga MD LAB - HEMATOLOGY ORDERABLES F inal Result [address] [address], [facility] [phone] * CARDIAC EKG ORDER (01/29/2025 12:56 PM CDT) Narrative 01/29/2025 12:56 PM CDT Ordered by an unspecified provider. us Scanned Document CARDIAC SERVICES ORDERABLES Fin al Result * HEPATITIS B SURFACE ANTIGEN W RFLX CONFIRMATION (01/29/2025 12:01 PM CDT) Hepatitis B Virus Surface Antigen Non-reacti ve Non-reacti ve 01/29/2025 1:03 PM CDT [facility] Blood BLOOD SPECIMEN / Unknown Venipuncture / Unknown 01/29/2025 12:01 PM CDT 01/29/2025 12:05 PM CDT us Ashleigh Leyva MD LAB - CHEMISTRY ORDERABLES Fi nal Result [address] [address], [facility] [phone] * (ABNORMAL) PHOSPHORUS BLOOD (01/29/2025 1:06 AM CDT) Phosphorus 5.5(H) 2.8 - 5.1 mg/dL 01/29/2025 1:43 AM CDT [facility] Blood BLOOD SPECIMEN / Unknown Venipuncture / Unknown 01/29/2025 1:06 AM CDT 01/29/2025 1:10 AM CDT us Mirna Zuniga MD LAB - CHEMISTRY ORDERABLES Fi nal Result Performing Organization Address City/[facility]/ZIP Co de Phone Number [address] [address], [facility] [phone] * (ABNORMAL) GLUCOSE - POINT OF CARE (01/28/2025 9:23 AM CDT) Only the most recent of2 resultswithin the time period is included. Pathologist [facility] Glucose WB/POC 100(H) 70 - 99 mg/dL 01/28/2025 9:28 AM CDT [facility] Specimen Type Venous 01/28/2025 9:28 AM CDT [facility] Blood BLOOD SPECIMEN / Unknown 01/28/2025 9:23 AM CDT 01/28/2025 9:28 AM CDT us Mirna Zuniga MD LAB - POINT OF CARE ORDERABLE S Final Result [facility] [address] [place] [address], [facility] [phone] * EKG 12-LEAD (01/28/2025 3:59 AM CDT) [facility] Ventricular Rate 77 BPM [facility] Atrial Rate 77 BPM [facility] P-R Interval 218 ms [facility] QRS Duration ms 116 ms [facility] Q-T Interval ms 454 ms [facility] QTC Calculation (Bezet) 513 ms [facility] Calculated P [place] 63 degrees SL MUSE Calculated R [place] 6 degrees H MUSE Calculated T [place] 79 degrees SL MUSE Interpretation EKG SINUS RHYTHM WITH 1ST DEGREE A-V BLOCK INCOMPLETE RIGHT BUNDLE BRANCH BLOCK MINIMAL VOLTAGE CRITERIA FOR LVH, MAY BE NORMAL VARIANT ( [place] product ) NONSPECIFIC T WAVE ABNORMALITY PROLONGED QT ABNORMAL ECG WHEN COMPARED WITH ECG OF 27-APR-2024 12:22, INCOMPLETE RIGHT BUNDLE BRANCH BLOCK IS NOW PRESENT Confirmed by TEDDY LOCK, ZAC WRIGHT ([id number]) on 01/30/2025 2:50:47 PM [facility] 01/28/2025 3:59 AM CDT 01/30/2025 2:50 PM CDT Sebastián Liang MD ECG ORDERABLES Edited Resul t - Final [facility] * (ABNORMAL) TEG 6S PLATELET MAPPING (01/28/2025 3:51 AM CDT) [facility] TEGPLM (Max Amplitude) [place] 46.3(L) 53.0 - 68.0 mm 01/28/2025 4:59 AM [facility] TEGPLM (Max Amplitude) ACTF 14.0 2.0 - 19.0 mm 01/28/2025 4:59 AM [facility] TEGPLM (Max Amplitude) ADP 42.0(L) 45.0 - 69.0 mm 01/28/2025 4:59 AM [facility] Comment:ADP MA below normal range. Inhibition present. TEGPLM (Max Amplitude) AA 29.1(L) 51.0 - 71.0 mm 01/28/2025 4:59 AM [facility] Comment:AA MA below normal r raffi. Inhibition present. TEGPLM %Inhibition ADP 13.3 0.0 - 17.0 % 01/28/2025 4:59 AM [facility] TEGPLM %Inhibition AA 53.3(H) 0.0 - 11.0 % 01/28/2025 4:59 AM [facility] TEGPLM %Aggregation ADP 86.7 83.0 - 100.0 % 01/28/2025 4:59 AM [facility] TEGPLM % Aggregation AA 46.7(L) 89.0 - 100.0 % 01/28/2025 4:59 AM [facility] Blood BLOOD SPECIMEN / Unknown Venipuncture / Unknown 01/28/2025 3:51 AM CDT 01/28/2025 3:57 AM CDT us Tyrell Bradley [employer] ENGINEER-MEETING/EVENT PLANNER LAB - HEMATOLOGY ORDER LINDA Final Result [facility] [address] [place] [address], [facility] [phone] * (ABNORMAL) TROPONIN-I HIGH SENSITIVE (01/28/2025 3:48 AM CDT) Troponin I High Sensitive 40(H) <=35 ng/L 01/28/2025 4:33 AM T [facility] Blood BLOOD SPECIMEN / Unknown Venipuncture / Unknown 01/28/2025 3:48 AM CDT 01/28/2025 3:58 AM CDT us Sebastián Liang MD LAB - CHEMISTRY ORDERABLES F inal Result Performing Organization Address [facility]/ZIP Co de Phone Number [address] [address], [place] [phone] * PTT (01/28/2025 3:48 AM CDT) APTT 37.3 23.0 - 38.4 Seconds 01/28/2025 4:30 AM CDT [facility] Comment:Suggested therapeuti c range for full dose I.V. unfractionated heparin therapy for venous thromboembolism is 71 to 109 seconds. Blood BLOOD SPECIMEN / Unknown Venipuncture / Unknown 01/28/2025 3:48 AM CDT 01/28/2025 3:58 AM CDT us Sebastián Liang MD LAB - COAGULATION ORDERABLES Final Result Performing Organization Address [facility] Co de Phone Number [address] [address], [place] [phone] * CT Angio Brain And Neck (01/28/2025 3:24 AM CDT) Anatomical Region Laterality Modality Head Computed Tomogra phy 01/28/2025 4:35 AM CDT Impressions 01/28/2025 11:07 AM CDT IMPRESSION: 1.Please refer to concurrent CT head without contrast for details of non-angiographic findings including an acute subdural hematoma measuring in the right parieto-occipital convexity, extending to right tentorial leaflet and interhemispheric falx with minimal mass effect in the ipsilateral hemisphere with mild effacement of the sulci. 2.No aneurysms, spot sign, or signs of a high flow vascular malformation identified. No large arterial occlusions or significant stenoses identified in the head or neck. 3.Nonocclusive atherosclerotic calcifications of the external carotid arteries and its branches. 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 5.A 2 cm left thyroid hypoattenuating indeterminate nodule. Recommend dedicated nonemergent thyroid sonogram and possible fine-needle aspiration biopsy to further evaluate to exclude malignancy. Viz.AI was used for large vessel occlusion detection. The report was drafted by iMhir Deras MD (administration vice president). I, Stefanie Schreiber MD have personally reviewed and interpreted this examination/study. > Interpreting Provider: Stefanie Schreiber MD on 01/28/2025 11:07 AM Narrative 01/28/2025 11:07 AM CDT PROCEDURE: CT ANGIO BRAIN AND NECK, DATE/TIME OF EXAM: 01/28/2025 3:37 AM, LOCATION [facility] INDICATION: I63.9: Cerebrovascular accident (CVA), unspecified mechanism (HCC) ADDITIONAL CLINICAL INFORMATION: Ordering Provider Reason For Exam: ICH, CVA, EXAMINATION: 1. Computed tomographic (CT) angiography of the head without and with contrast 2. CT angiography of the neck with contrast CONTRAST: IOPAMIDOL 76 % IV SOLN:75 mL TECHNIQUE: CT of the head was performed without contrast according to standard protocol. Then CT angiography of the head and neck was obtained after the uneventful administration of mL Isovue-370 intravenous contrast. Three dimensional postprocessing was performed by the technologist and sent to the workstation for review. Stenosis measurements are based on NASCET criteria. CT dose reduction technique was used, including Automated Exposure Control. COMPARISON: FINDINGS: Non-angiographic findings: Please refer to concurrent CT head without contrast for details of non-angiographic findings including an acute subdural hematoma measuring in the right parieto-occipital convexity, extending to right tentorial leaflet and interhemispheric falx with minimal mass effect in the ipsilateral hemisphere with mild effacement of the sulci. A 2 cm left thyroid hypoattenuating indeterminate nodule. Angiographic findings: There is atherosclerotic disease of the aortic arch and coronary arteries. The configuration of the brachiocephalic vessels is typical. There is atherosclerotic calcification of the innominate and subclavian arteries. The right common and internal carotid arteries as well as the right carotid bifurcation appear normal. There is atherosclerotic disease of the left carotid bifurcation and origin of the left internal carotid artery without focal stenosis by NASCET criteria. The left common and internal carotid arteries otherwise appear normal. Other than mild focal stenosis at their origins due to atherosclerotic disease, the cervical vertebral arteries appear normal. Nonocclusive atherosclerotic calcifications of the external carotid arteries and its branches. 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 There is atherosclerotic disease involving the distal internal carotid arteries without significant focal stenosis. The anterior and middle cerebral arteries appear normal. There is atherosclerotic disease involving the distal vertebral arteries without significant focal stenosis. The basilar artery and posterior cerebral arteries appear normal. No aneurysms, vascular occlusions, or intracranial stenoses are identified. Procedure Note Stefanie Schreiber MD - 01/28/2025 PROCEDURE: CT ANGIO BRAIN AND NECK, DATE/TIME OF EXAM: 01/28/2025 3:37AM, LOCATION [facility] INDICATION: I63.9: Cerebrovascular accident (CVA), unspecified mechanism (HCC) ADDITIONAL CLINICAL INFORMATION: Ordering Provider Reason For Exam: ICH, CVA, EXAMINATION: 1. Computed tomographic (CT) angiography of the head without and with contrast 2. CT angiography of the neck with contrast CONTRAST: IOPAMIDOL 76 % IV SOLN:75 mL TECHNIQUE: CT of the head was performed without contrast according to standard protocol. Then CT angiography of the head and neck was obtained after the uneventful administration of mL Isovue-370 intravenouscontrast. Three dimensional postprocessing was performed by the technologist andsent to the workstation for review. Stenosis measurements are based on NASCET criteria. CT dose reduction technique was used, including Automated Exposure Control. COMPARISON: FINDINGS: Non-angiographic findings: Please refer to concurrent CT head without contrast for details of non-angiographic findings including an acute subdural hematoma measuringin the right parieto-occipital convexity, extending to right tentorialleaflet and interhemispheric falx with minimal mass effect in the ipsilateral hemisphere with mild effacement of the sulci. A 2 cm left thyroid hypoattenuating indeterminate nodule. Angiographic findings: There is atherosclerotic disease of the aortic arch and coronaryarteries. The configuration of the brachiocephalic vessels is typical. There is atherosclerotic calcification of the innominate and subclavian arteries. The right common and internal carotid arteries as well as the rightcarotid bifurcation appear normal. There is atherosclerotic disease of the left carotid bifurcation and origin of the left internal carotid arterywithout focal stenosis by NASCET criteria. The left common and internal carotid arteries otherwise appear normal. Other than mild focal stenosis attheir origins due to atherosclerotic disease, the cervical vertebral arteries appear normal. Nonocclusive atherosclerotic calcifications of the external carotid arteries and its branches. 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 There is atherosclerotic disease involving the distal internal carotid arteries without significant focal stenosis. The anterior and middle cerebral arteries appear normal. There is atherosclerotic diseaseinvolving the distal vertebral arteries without significant focal stenosis. The basilar artery and posterior cerebral arteries appear normal. Noaneurysms, vascular occlusions, or intracranial stenoses are identified. IMPRESSION: 1.Please refer to concurrent CT head without contrast for details of non-angiographic findings including an acute subdural hematoma measuringin the right parieto-occipital convexity, extending to right tentorialleaflet and interhemispheric falx with minimal mass effect in the ipsilateral hemisphere with mild effacement of the sulci. 2.No aneurysms, spot sign, or signs of a high flow vascular malformation identified. No large arterial occlusions or significant stenosesidentified in the head or neck. 3.Nonocclusive atherosclerotic calcifications of the external carotid arteries and its branches. 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 5.A 2 cm left thyroid hypoattenuating indeterminate nodule. Recommend dedicated nonemergent thyroid sonogram and possible fine-needleaspiration biopsy to further evaluate to exclude malignancy. Viz.AI was used for large vessel occlusion detection. The report was drafted by Mihir Deras MD (administration vice president). I, Stefanie Schreiber MD have personally reviewed and interpreted this examination/study. > Interpreting Provider: Stefanie Schreiber MD on 01/28/2025 11:07 AM us Allyson Casiano MD CT ORDERABLES Final Result * HEMOGLOBIN A1C - POINT OF CARE (AMB) [facility] (05/12/2024 1:22 PM CDT) Hemoglobin A1c POCT 4.7 % [facility] [address] [facility] BLOOD SPECIMEN / Unknown 05/12/2024 1:22 PM CDT us Niurka Donato MD LAB - POINT OF CARE ORDERABLES Final Result NORBERTO Tran [facility] Marc [facility], [place] [address], [facility] [phone] * ENDOSCOPY, COLON, SCREENING (01/28/2024 12:23 PM [...] and oxygen saturations were monitored continuously. The [id number] was introduced through the anus and advanced to the cecum, identified by appendiceal orifice and ileocecal valve. The colonoscopy was performed without difficulty. The patient tolerated the procedure well. The quality of the bowel preparation was evaluated using the BBPS (Bayard Bowel Preparation Scale) with scores of: Right [...] non-barillas portions. Procedure Code(s): --- Professional --- 84783, Colonoscopy, flexible; with removal of tumor(s), polyp(s), or other lesion(s) by snare technique Diagnosis Code(s): --- Professional --- Z12.11, Encounter for screening for malignant neoplasm of colon D12.3, Benign neoplasm of transverse colon (hepatic flexure or splenic flexure) D12.2, Benign neoplasm of ascending colon CPT copyright 2021 [employer]. All rights reserved. The codes documented in this report are preliminary and upon financial accounting manager review may be revised to meet current compliance requirements. Mauro Gómez MD 01/28/2024 1:37:03 PM Note Initiated On: 01/28/2024 12:23 PM Number of Addenda: [id number] [place] [address] 01/28/2024 12:2 3 PM CDT Daniel Leggett MD GI PROCEDURE ORDERAB LES Edited Result - Final Performing Organization Address City/[facility]/ZIP Co de Phone Number [facility] * HIV-1 HIV-2 ANTIBODY + HIV P24 AG PANEL (01/07/2024 12:28 PM CDT) [facility] HIV Antigen/Antibod y 1 & 2 Non-reacti ve Non-react mary jane 01/07/2024 2:52 PM CDT [facility] Comment:No Laboratory eviden ce of HIV infection. Blood BLOOD SPECIMEN / Unknown Lab Venipuncture / Unknown 01/07/2024 12:28 PM CDT 01/07/2024 1:08 PM CDT Clif Stein MD LAB - CHEMISTRY ORDERAB LES Final Result Performing Organization Address [facility]/ZIP Co de Phone Number [address] [address], [facility] [phone] * HEPATITIS C ANTIBODY (01/07/2024 12:28 PM CDT) Hepatitis C Antibody Non-react mary jane Non-reac tive 01/07/2024 2:52 PM CDT [facility] Comment:Hepatitis C Antibody screen indicates no [...] 12:28 PM CDT 01/07/2024 1:08 PM CDT us Clif Stein MD LAB - CHEMISTRY ORDERAB LES Final Result [facility] [address] [place] [address], [facility] [phone] from Last 3 Months or Most Recently Relevant to Health Maintenance Insurance MEDICARE Advance Directives * Full Code (Latest Code Status on File) Date Activated Date Inactivated Comments 01/28/2025 7:31 PM 01/30/2025 2:46 PM * Full Code Date Activated Date Inactivated Comments 06/11/2024 11:04 AM 06/11/2024 4:07 PM * Full Code Date Activated Date Inactivated Comments 04/27/2024 2:39 PM 04/27/2024 6:53 PM * Full Code Date Activated Date Inactivated Comments 05/25/2020 9:50 AM 05/25/2020 3:06 PM * Full Code Date Activated Date Inactivated Comments 02/18/2019 3:49 PM 02/23/2019 4:47 PM Care Teams Director Of Food And Beverage Services Relationship Specialty Start Date End Date Dallas Tejada MD [address] [place] [address] PCP - General Internal Medicine 02/06/25 Naomi Kaye MD [address] [address] PCP - [facility] 11/19/24 Dallas Tejada MD [address] [facility] [address] [place] [address] Internal Medicine 02/06/25
--- OUTSIDE RECORDS SUMMARY | 2025-04-13 16:47 | XMS_ITS | Encounter Summary ---
Author Organization [facility] Health Address [address] [place] [address] Care Team Providers Care J2Ee Application Developer Name Role Phone Dallas Tejada MD Primary Care Provider + [phone] Dlalas Tejada MD Primary Care Provider + [phone] Dallas Tejada MD Unavailable [phone] Naomi Kaye MD Unavailable Dallas Tejada MD Unavailable [phone] Naomi Kaye MD Unavailable [phone] Encounter Details Date Type Department Care Team (Late Contact Info) Description 02/09/2019 [facility] Outpatient Visit [facility] [address] [place] [address] [place] [address] [facility] [address] [place] [address] Social History Tobacco Use Types [...] (Late Contact Info) Description 05/25/2025 2:15 PM [employer] Appointment [facility] Vascular Services [address] [facility], [address] [place] [address] documented as of this encounter Visit Diagnoses Not on filedocumented in this encounter Care Teams J2Ee Application Developer Relationship Specialty Start Date End Date Dallas Tejada MD [address] [facility] [address] [place] [address] PCP - General Internal Medicine 02/18/19 02/05/25 Dallas Tejada MD [address] [place] [address] PCP - General Internal Medicine 02/06/25 Naomi Kaye MD [address] [address] PCP - [facility] 07/22/24 10/19/24 Dallas Tejada MD [address] [facility] [address] [place] [address] PCP - [facility] 10/20/24 11/18/24 Naomi Kaye MD [id number] [place] [address] PCP - [facility] 11/19/24 Dallas Tejada MD [address] [facility] [address] [place] [address] Internal Medicine 02/06/25 documented as of this encounter
--- OUTSIDE RECORDS SUMMARY | 2025-04-13 16:49 | XMS_ITS ---
Author Organization [facility] ([facility]) Address [address] [place] [id number] Care Team Providers Care Gore Inserter Name Role Phone Unavailable Unavailable Unavailable Allergies, Adverse Reactions, Alerts Allergy Name Allergy Type Status Severity Reaction(s) Onset Date Inactive Date Treating Clinician Comments No Known Allergies Allergy Active 2022-04 18:51:4 0 Medications Ordered Medication Name Filled Medication Name Start Date Stop Date Current Medication? Ordering Clinician Indication Dosage Frequency Signature (SIG) Comments Components calcitriol 03-23 16:35: 11 Yes [id number] Number of Repeats Allowed: Frequency: Three times a week calcitriol 01-01 20:29: 05 Yes [id number] Number of Repeats Allowed: Frequency: Three times a week Mircera 5-08 05:00: 00 Yes [id number] Number of Repeats Allowed: Frequency: RAVINDER dosing, every two weeks Venofer 10-03 19:32: 40 Yes [id number] Number of Repeats Allowed: Frequency: One time a weekDosesO rdered: Maintenanc e Dose 50 Milligram Route: Intravenou s heparin sodium, porcine 09-05 14:59: 33 Yes [id number] Number of Repeats Allowed: Frequency: Every Dialysis TreatmentD osesOrdere d: Loading Dose 2000 Units 1:1000 Units/mLRo capitan grande band: Intravenou s heparin sodium, porcine 09-05 14:59: 19 Yes [id number] Number of Repeats Allowed: Frequency: Every Dialysis TreatmentD osesOrdere d: Hourly Dose 500 Units/Hr 1:1000 Units/mLRo [place] band: Intravenou s loperamide hydrochlori de 3- 13:46: 24 Yes [id number] Number of Repeats Allowed: Frequency: Every 4 hours as needed Normal Saline Solution 0.9% NaCl 09-21 13:46: 05 Yes [id number] Number of Repeats Allowed: Frequency: As needed Oxygen 09-21 13:45: 52 Yes [id number] Number of Repeats Allowed: Frequency: As needed ondansetron hydrochlori de 09-21 13:45: 42 Yes [id number] Number of Repeats Allowed: Frequency: Every 4 hours as needed Antacid Extra Strength 09-21 13:45: 22 Yes [id number] Number of Repeats Allowed: Frequency: Every 4 hours as needed acetaminoph en 09-21 13:45: 06 Yes [id number] Number of Repeats Allowed: Frequency: Every 4 hours as needed Problems This patient has no known problems. Procedures Procedure Date / Time Performed Performing Clinician Courtney ce Details AV Fistula 2019-03-10 05:00:00 Access Surgeon HUMZA WHITFIELD MD ([id number]),[place], [place] Access Site Forearm (Left) Access Use Start Date 2019-06-10 06:00:0 0 DIALYSIS TREATMENT INFORMATION Conventional Hemodialysis Date Type Treatment Start Date Treatment End Date Pre-Treatment Vitals Post-Treatment Vitals Weight Gain BFR DFR Actual UF Dialysis Access Septe banner 2024 In-Ce nter Hemod ialys is Treat ment 2025-04-12 T10:45:35. 000Z 2025-04-12 T14:47:36. 000Z BP Sitting (Pre-Dialysis) 157/69 mmHg BP Sitting (Post-D ialysis ) 159/ 65 mmHg BP Standing (Pre-Dialysis) 138/81 mmHg BP Standing (P ost-Dialysis) 151/69 mmHg Sitting Heart Rate Pre-Dialysis 89 BPM Sitting Heart Rate Post-Dialysis 98 BPM Standing Heart Rate Pre-Dialysis 94 BPM Standing Heart Rate Post-Dialysis 100 BPM Temperature Pre-Dialysis 97.8 degF Temperature Post -Dialysis 101 degF April 09, 2025 In-Center Hemodialysis Treatment [id number]:55:47.000Z 8162-73-87W60:03:47.000Z BP Sitting (Pre-Dialysis) 177/87 mmHg BP Sitting (Post-Dialysis) 162/70 mmHg Concurrent Access: falseAV Fistula Forearm (Left) Arterial BP Standing (Pre-Dialysis) 147/93 mmHg Sitti ng Heart Rate Post-Dialysis 92 BPM Sitting Heart Rate Pre-Dialysis 102 BPM Temperatu re Post-Dialysis 98.2 degF Standing Heart Rate Pre-Dialysis 103 BPM Temperature Pre-Dialysis 97.5 degF April 07, 2025 In-Center Hemodialysis Treatment 0674-61-96F57:01:00.000Z 8903-09-07A66:05:14.000Z BP Sitting (Pre-Dialysis) 170/86 mmHg BP Sitting (Post-Dialysis) 135/63 mmHg Concurrent Access: falseAV Fistula Forearm (Left) Arterial BP Standing (Pre-Dialysis) 121/95 mmHg Sitti ng Heart Rate Post-Dialysis 67 BPM Sitting Heart Rate Pre-Dialysis 82 BPM Temperatu re Post-Dialysis 97.7 degF Standing Heart Rate Pre-Dialysis 83 BPM Temperature Pre-Dialysis 97.6 degF April 05, 2025 In-Center Hemodialysis Treatment 8209-76-01A48:34:00.000Z 5507-48-19T48:38:42.000Z BP Sitting (Pre-Dialysis) 156/77 mmHg BP Sitting (Post-Dialysis) 143/67 mmHg Concurrent Access: falseAV Fistula Forearm (Left) Arterial BP Standing (Pre-Dialysis) 154/72 mmHg Sitti ng Heart Rate Post-Dialysis 69 BPM Sitting Heart Rate Pre-Dialysis 77 BPM Temperatu re Post-Dialysis 97.7 degF Standing Heart Rate Pre-Dialysis 80 BPM Temperature Pre-Dialysis 97.7 degF April 02, 2025 In-Center Hemodialysis Treatment 0413-74-94K40:37:53.000Z 8505-59-46W42:42:54.000Z BP Sitting (Pre-Dialysis) 161/77 mmHg BP Sitting (Post-Dialysis) 144/70 mmHg Concurrent Access: falseAV Fistula Forearm (Left) Arterial BP Standing (Pre-Dialysis) 149/75 mmHg BP Standing (P ost-Dialysis) 125/60 mmHg Sitting Heart Rate Pre-Dialysis 77 BPM Sitting Heart Rate Post-Dialysis 70 BPM Standing Heart Rate Pre-Dialysis 76 BPM Standing Heart Rate Post-Dialysis 76 BPM Temperature Pre-Dialysis 97.8 degF Temperature Post -Dialysis 97.9 degF March 31, 2025 In-Center Hemodialysis Treatment 4549-89-80T36:55:21.000Z 7497-52-04G75:53:21.000Z BP Sitting (Pre-Dialysis) 136/80 mmHg BP Sitting (Post-Dialysis) 138/68 mmHg Concurrent Access: falseAV Fistula Forearm (Left) Arterial BP Standing (Pre-Dialysis) 142/70 mmHg BP Standing (P ost-Dialysis) 125/59 mmHg Sitting Heart Rate Pre-Dialysis 80 BPM Sitting Heart Rate Post-Dialysis 70 BPM Standing Heart Rate Pre-Dialysis 79 BPM Standing Heart Rate Post-Dialysis 77 BPM Temperature Pre-Dialysis 97.8 degF Temperature Post -Dialysis 97.7 degF March 29, 2025 In-Center Hemodialysis Treatment 6593-12-22U78:50:48.000Z 8437-89-91T66:54:49.000Z BP Sitting (Pre-Dialysis) 157/80 mmHg BP Sitting (Post-Dialysis) 131/66 mmHg Concurrent Access: falseAV Fistula Forearm (Left) Arterial BP Standing (Pre-Dialysis) 148/70 mmHg BP Standing (P ost-Dialysis) 102/54 mmHg Sitting Heart Rate Pre-Dialysis 78 BPM Sitting Heart Rate Post-Dialysis 70 BPM Standing Heart Rate Pre-Dialysis 76 BPM Standing Heart Rate Post-Dialysis 73 BPM Temperature Pre-Dialysis 97.6 degF Temperature Post -Dialysis 98 degF March 26, 2025 In-Center Hemodialysis Treatment 4040-82-68D19:56:56.000Z 3463-86-11Q12:57:56.000Z BP Sitting (Pre-Dialysis) 157/73 mmHg BP Sitting (Post-Dialysis) 139/69 mmHg Concurrent Access: falseAV Fistula Forearm (Left) Arterial BP Standing (Pre-Dialysis) 148/68 mmHg BP Standing (P ost-Dialysis) 125/70 mmHg Sitting Heart Rate Pre-Dialysis 78 BPM Sitting Heart Rate Post-Dialysis 78 BPM Standing Heart Rate Pre-Dialysis 80 BPM Standing Heart Rate Post-Dialysis 80 BPM Temperature Pre-Dialysis 97.8 degF Temperature Post -Dialysis 97.8 degF March 24, 2025 In-Center Hemodialysis Treatment 6186-42-58H03:44:28.000Z 2004-67-43Q57:46:28.000Z BP Sitting (Pre-Dialysis) 168/68 mmHg BP Sitting (Post-Dialysis) 139/67 mmHg Concurrent Access: falseAV Fistula Forearm (Left) Arterial BP Standing (Pre-Dialysis) 146/66 mmHg Sitti ng Heart Rate Post-Dialysis 69 BPM Sitting Heart Rate Pre-Dialysis 72 BPM Temperatu re Post-Dialysis 98.2 degF Standing Heart Rate Pre-Dialysis 62 BPM Temperature Pre-Dialysis 97.8 degF March 22, 2025 In-Center Hemodialysis Treatment 7762-21-51C39:33:55.000Z 1324-24-41O76:34:56.000Z BP Sitting (Pre-Dialysis) 157/69 mmHg BP Sitting (Post-Dialysis) 135/67 mmHg Concurrent Access: falseAV Fistula Forearm (Left) Arterial BP Standing (Pre-Dialysis) 139/73 mmHg BP Standing (P ost-Dialysis) 147/62 mmHg Sitting Heart Rate Pre-Dialysis 81 BPM Sitting Heart Rate Post-Dialysis 72 BPM Standing Heart Rate Pre-Dialysis 82 BPM Standing Heart Rate Post-Dialysis 72 BPM Temperature Pre-Dialysis 97.1 degF Temperature Post -Dialysis 97.8 degF March 19, 2025 In-Center Hemodialysis Treatment 1826-80-06C90:40:07.000Z 0244-60-77X55:42:07.000Z BP Sitting (Pre-Dialysis) 176/84 mmHg BP Sitting (Post-Dialysis) 146/72 mmHg Concurrent Access: falseAV Fistula Forearm (Left) Arterial BP Standing (Pre-Dialysis) 164/77 mmHg BP Standing (P ost-Dialysis) 130/57 mmHg Sitting Heart Rate Pre-Dialysis 80 BPM Sitting Heart Rate Post-Dialysis 72 BPM Standing Heart Rate Pre-Dialysis 82 BPM Standing Heart Rate Post-Dialysis 76 BPM Temperature Pre-Dialysis 97.7 degF Temperature Post -Dialysis 98 degF March 17, 2025 In-Center Hemodialysis Treatment 9072-16-27K83:43:35.000Z 1139-61-27P89:50:35.000Z BP Sitting (Pre-Dialysis) 174/73 mmHg BP Sitting (Post-Dialysis) 163/71 mmHg Concurrent Access: falseAV Fistula Forearm (Left) Arterial BP Standing (Pre-Dialysis) 160/101 mmHg BP Standing (P ost-Dialysis) 143/68 mmHg Sitting Heart Rate Pre-Dialysis 79 BPM Sitting Heart Rate Post-Dialysis 71 BPM Standing Heart Rate Pre-Dialysis 81 BPM Standing Heart Rate Post-Dialysis 72 BPM Temperature Pre-Dialysis 97.6 degF Temperature Post -Dialysis 97.4 degF March 15, 2025 In-Center Hemodialysis Treatment 7634-54-80G46:46:02.000Z 7408-80-62R77:51:03.000Z BP Sitting (Pre-Dialysis) 171/83 mmHg BP Sitting (Post-Dialysis) 151/71 mmHg Concurrent Access: falseAV Fistula Forearm (Left) Arterial BP Standing (Pre-Dialysis) 174/81 mmHg BP Standing (P ost-Dialysis) 138/75 mmHg Sitting Heart Rate Pre-Dialysis 76 BPM Sitting Heart Rate Post-Dialysis 68 BPM Standing Heart Rate Pre-Dialysis 76 BPM Standing Heart Rate Post-Dialysis 70 BPM Temperature Pre-Dialysis 98 degF Temperature Post -Dialysis 98 degF March 12, 2025 In-Center Hemodialysis Treatment 2623-59-13A19:43:13.000Z 2915-21-72B05:44:14.000Z BP Sitting (Pre-Dialysis) 175/78 mmHg BP Sitting (Post-Dialysis) 141/58 mmHg Concurrent Access: falseAV Fistula Forearm (Left) Arterial BP Standing (Pre-Dialysis) 147/58 mmHg BP Standing (P ost-Dialysis) 122/66 mmHg Sitting Heart Rate Pre-Dialysis 78 BPM Sitting Heart Rate Post-Dialysis 67 BPM Standing Heart Rate Pre-Dialysis 80 BPM Standing Heart Rate Post-Dialysis 71 BPM Temperature Pre-Dialysis 97.8 degF Temperature Post -Dialysis 97.8 degF March 10, 2025 In-Center Hemodialysis Treatment 8231-87-35K34:38:41.000Z 7889-36-89N13:46:41.000Z BP Sitting (Pre-Dialysis) 172/79 mmHg BP Sitting (Post-Dialysis) 149/72 mmHg Concurrent Access: falseAV Fistula Forearm (Left) Arterial BP Standing (Pre-Dialysis) 159/77 mmHg BP Standing (P ost-Dialysis) 153/68 mmHg Sitting Heart Rate Pre-Dialysis 80 BPM Sitting Heart Rate Post-Dialysis 71 BPM Standing Heart Rate Pre-Dialysis 82 BPM Standing Heart Rate Post-Dialysis 72 BPM Temperature Pre-Dialysis 98 degF Temperature Post -Dialysis 98.2 degF March 08, 2025 In-Center Hemodialysis Treatment 0224-36-58A66:45:08.000Z 7292-95-57T63:59:09.000Z BP Sitting (Pre-Dialysis) 163/77 mmHg BP Sitting (Post-Dialysis) 148/82 mmHg Concurrent Access: falseAV Fistula Forearm (Left) Arterial BP Standing (Pre-Dialysis) 153/77 mmHg BP Standing (P ost-Dialysis) 136/73 mmHg Sitting Heart Rate Pre-Dialysis 80 BPM Sitting Heart Rate Post-Dialysis 73 BPM Standing Heart Rate Pre-Dialysis 81 BPM Standing Heart Rate Post-Dialysis 74 BPM Temperature Pre-Dialysis 98 degF Temperature Post -Dialysis 97.6 degF March 05, 2025 In-Center Hemodialysis Treatment 1734-81-38V18:46:20.000Z 0644-14-41Q53:47:20.000Z BP Sitting (Pre-Dialysis) 154/72 mmHg BP Sitting (Post-Dialysis) 154/77 mmHg Concurrent Access: falseAV Fistula Forearm (Left) Arterial BP Standing (Pre-Dialysis) 153/77 mmHg BP Standing (P ost-Dialysis) 140/73 mmHg Sitting Heart Rate Pre-Dialysis 79 BPM Sitting Heart Rate Post-Dialysis 73 BPM Standing Heart Rate Pre-Dialysis 82 BPM Standing Heart Rate Post-Dialysis 72 BPM Temperature Pre-Dialysis 97.7 degF Temperature Post -Dialysis 97.7 degF March 03, 2025 In-Center Hemodialysis Treatment 4789-82-04T05:36:47.000Z 8378-63-89Z55:39:48.000Z BP Sitting (Pre-Dialysis) 164/74 mmHg BP Sitting (Post-Dialysis) 132/62 mmHg Concurrent Access: falseAV Fistula Forearm (Left) Arterial BP Standing (Pre-Dialysis) 153/68 mmHg BP Standing (P ost-Dialysis) 158/103 mmHg Sitting Heart Rate Pre-Dialysis 74 BPM Sitting Heart Rate Post-Dialysis 75 BPM Standing Heart Rate Pre-Dialysis 77 BPM Standing Heart Rate Post-Dialysis 83 BPM Temperature Pre-Dialysis 97.8 degF Temperature Post -Dialysis 98 degF March 01, 2025 In-Center Hemodialysis Treatment 8526-35-74P08:30:45.000Z 9721-14-05E15:34:45.000Z BP Sitting (Pre-Dialysis) 153/70 mmHg BP Sitting (Post-Dialysis) 146/67 mmHg Concurrent Access: falseAV Fistula Forearm (Left) Arterial BP Standing (Pre-Dialysis) 151/73 mmHg BP Standing (P ost-Dialysis) 139/68 mmHg Sitting Heart Rate Pre-Dialysis 73 BPM Sitting Heart Rate Post-Dialysis 63 BPM Standing Heart Rate Pre-Dialysis 73 BPM Standing Heart Rate Post-Dialysis 68 BPM Temperature Pre-Dialysis 97.3 degF Temperature Post -Dialysis 97.7 degF February 26, 2025 In-Center Hemodialysis Treatment 3497-54-94G88:44:57.000Z 6486-51-35E70:42:56.000Z BP Sitting (Pre-Dialysis) 163/92 mmHg BP Sitting (Post-Dialysis) 136/68 mmHg Concurrent Access: falseAV Fistula Forearm (Left) Arterial BP Standing (Pre-Dialysis) 149/73 mmHg BP Standing (P ost-Dialysis) 109/54 mmHg Sitting Heart Rate Pre-Dialysis 78 BPM Sitting Heart Rate Post-Dialysis 73 BPM Standing Heart Rate Pre-Dialysis 77 BPM Standing Heart Rate Post-Dialysis 78 BPM Temperature Pre-Dialysis 97.7 degF Temperature Post -Dialysis 97.8 degF February 24, 2025 In-Center Hemodialysis Treatment 2708-58-72B85:40:23.000Z 7039-33-48F78:41:24.000Z BP Sitting (Pre-Dialysis) 156/77 mmHg BP Sitting (Post-Dialysis) 140/70 mmHg Concurrent Access: falseAV Fistula Forearm (Left) Arterial BP Standing (Pre-Dialysis) 155/77 mmHg BP Standing (P ost-Dialysis) 137/67 mmHg Sitting Heart Rate Pre-Dialysis 68 BPM Sitting Heart Rate Post-Dialysis 72 BPM Standing Heart Rate Pre-Dialysis 69 BPM Standing Heart Rate Post-Dialysis 70 BPM Temperature Pre-Dialysis 98 degF Temperature Post -Dialysis 97.7 degF February 19, 2025 In-Center Hemodialysis Treatment 0652-40-37S43:28:03.000Z 7178-54-60V45:30:02.000Z BP Sitting (Pre-Dialysis) 157/75 mmHg BP Sitting (Post-Dialysis) 130/67 mmHg Concurrent Access: falseAV Fistula Forearm (Left) Arterial BP Standing (Pre-Dialysis) 159/74 mmHg BP Standing (P ost-Dialysis) 115/52 mmHg Sitting Heart Rate Pre-Dialysis 69 BPM Sitting Heart Rate Post-Dialysis 62 BPM Standing Heart Rate Pre-Dialysis 69 BPM Standing Heart Rate Post-Dialysis 68 BPM Temperature Pre-Dialysis 97.2 degF Temperature Post -Dialysis 98 degF February 17, 2025 In-Center Hemodialysis Treatment 5656-09-47F99:39:01.000Z 4225-70-66G65:37:00.000Z BP Sitting (Pre-Dialysis) 142/75 mmHg BP Sitting (Post-Dialysis) 137/65 mmHg Concurrent Access: falseAV Fistula Forearm (Left) Arterial BP Standing (Pre-Dialysis) 133/62 mmHg BP Standing (P ost-Dialysis) 138/55 mmHg Sitting Heart Rate Pre-Dialysis 68 BPM Sitting Heart Rate Post-Dialysis 65 BPM Standing Heart Rate Pre-Dialysis 68 BPM Standing Heart Rate Post-Dialysis 66 BPM Temperature Pre-Dialysis 97.7 degF Temperature Post -Dialysis 97.6 degF February 15, 2025 In-Center Hemodialysis Treatment 2774-31-16S99:43:16.000Z 6876-57-82V61:54:17.000Z BP Sitting (Pre-Dialysis) 99/80 mmHg BP Sitting (Post-Dialysis) 135/62 mmHg Concurrent Access: falseAV Fistula Forearm (Left) Arterial BP Standing (Pre-Dialysis) 130/65 mmHg BP Standing (P ost-Dialysis) 123/60 mmHg Sitting Heart Rate Pre-Dialysis 43 BPM Sitting Heart Rate Post-Dialysis 67 BPM Standing Heart Rate Pre-Dialysis 67 BPM Standing Heart Rate Post-Dialysis 70 BPM Temperature Pre-Dialysis 96.8 degF Temperature Post -Dialysis 98.4 degF February 12, 2025 In-Center Hemodialysis Treatment 2355-26-64C63:32:28.000Z 5691-63-76M16:32:28.000Z BP Sitting (Pre-Dialysis) 151/69 mmHg BP Sitting (Post-Dialysis) 141/65 mmHg Concurrent Access: falseAV Fistula Forearm (Left) Arterial BP Standing (Pre-Dialysis) 143/69 mmHg BP Standing (P ost-Dialysis) 130/61 mmHg Sitting Heart Rate Pre-Dialysis 68 BPM Sitting Heart Rate Post-Dialysis 68 BPM Standing Heart Rate Pre-Dialysis 68 BPM Standing Heart Rate Post-Dialysis 60 BPM Temperature Pre-Dialysis 98.2 degF Temperature Post -Dialysis 97.8 degF February 10, 2025 In-Center Hemodialysis Treatment 6409-50-82X36:31:26.000Z 0159-23-52L83:34:26.000Z BP Sitting (Pre-Dialysis) 136/70 mmHg BP Sitting (Post-Dialysis) 135/70 mmHg Concurrent Access: falseAV Fistula Forearm (Left) Arterial BP Standing (Pre-Dialysis) 126/61 mmHg BP Standing (P ost-Dialysis) 138/67 mmHg Sitting Heart Rate Pre-Dialysis 69 BPM Sitting Heart Rate Post-Dialysis 66 BPM Standing Heart Rate Pre-Dialysis 69 BPM Standing Heart Rate Post-Dialysis 67 BPM Temperature Pre-Dialysis 97.9 degF Temperature Post -Dialysis 97.8 degF February 08, 2025 In-Center Hemodialysis Treatment 2045-74-14G44:34:44.000Z 9974-22-20Z54:32:44.000Z BP Sitting (Pre-Dialysis) 137/70 mmHg BP Sitting (Post-Dialysis) 145/72 mmHg Concurrent Access: falseAV Fistula Forearm (Left) Arterial BP Standing (Pre-Dialysis) 142/68 mmHg BP Standing (P ost-Dialysis) 134/49 mmHg Sitting Heart Rate Pre-Dialysis 72 BPM Sitting Heart Rate Post-Dialysis 79 BPM Standing Heart Rate Pre-Dialysis 71 BPM Standing Heart Rate Post-Dialysis 68 BPM Temperature Pre-Dialysis 97.7 degF Temperature Post -Dialysis 97.9 degF February 05, 2025 In-Center Hemodialysis Treatment 0823-86-26A66:22:55.000Z 2056-64-99Y97:23:55.000Z BP Sitting (Pre-Dialysis) 160/73 mmHg BP Sitting (Post-Dialysis) 134/62 mmHg Concurrent Access: falseAV Fistula Forearm (Left) Arterial BP Standing (Pre-Dialysis) 157/79 mmHg Sitti ng Heart Rate Post-Dialysis 67 BPM Sitting Heart Rate Pre-Dialysis 70 BPM Temperatu re Post-Dialysis 97.8 degF Standing Heart Rate Pre-Dialysis 71 BPM Temperature Pre-Dialysis 97.2 degF February 03, 2025 In-Center Hemodialysis Treatment 3863-32-04W04:42:27.000Z 2885-48-09G94:45:28.000Z BP Sitting (Pre-Dialysis) 139/68 mmHg BP Sitting (Post-Dialysis) 138/67 mmHg Concurrent Access: falseAV Fistula Forearm (Left) Arterial Sitting Heart Rate Pre-Dialysis 68 BPM BP Standing (Post-Dialysis) 143/62 mmHg Temperature Pre-Dialysis 97.7 degF Sitting Heart Ra te Post-Dialysis 67 BPM Standing Heart Rate Post-Sandra lysis 72 BPM Temperature Post-Dialysis 97 .5 degF January 27, 2025 In-Center Hemodialysis Treatment 3635-01-65V18:22:31.000Z 9876-03-00S40:24:31.000Z BP Sitting (Pre-Dialysis) 131/101 mmHg BP Sitting (Post-Dialysis) 162/77 mmHg Concurrent Access: falseAV Fistula Forearm (Left) Arterial BP Standing (Pre-Dialysis) 172/85 mmHg BP Standing (P ost-Dialysis) 156/75 mmHg Sitting Heart Rate Pre-Dialysis 76 BPM Sitting Heart Rate Post-Dialysis 67 BPM Standing Heart Rate Pre-Dialysis 76 BPM Standing Heart Rate Post-Dialysis 70 BPM Temperature Pre-Dialysis 97.8 degF Temperature Post -Dialysis 97.6 degF January 25, 2025 In-Center Hemodialysis Treatment 3798-63-38W00:31:00.000Z 7195-35-88R40:34:40.000Z BP Sitting (Pre-Dialysis) 181/93 mmHg BP Sitting [...] degF January 22, 2025 In-Center Hemodialysis Treatment 0144-03-39A03:33:51.000Z 3241-79-18S76:29:51.000Z BP Sitting (Pre-Dialysis) 175/85 mmHg BP Sitting [...] degF January 20, 2025 In-Center Hemodialysis Treatment 9085-61-31S60:33:18.000Z 2348-05-71I40:30:19.000Z BP Sitting (Pre-Dialysis) 180/84 mmHg BP Sitting [...] degF January 18, 2025 In-Center Hemodialysis Treatment 4348-06-60V81:42:59.000Z 8382-42-84I28:45:59.000Z BP Sitting (Pre-Dialysis) 166/84 mmHg BP Sitting [...] degF January 15, 2025 In-Center Hemodialysis Treatment 4945-73-68E08:39:00.000Z 5429-12-15S71:39:10.000Z BP Sitting (Pre-Dialysis) 178/85 mmHg BP Sitting [...] degF January 13, 2025 In-Center Hemodialysis Treatment 2851-45-45B95:34:37.000Z 5518-85-64H25:32:37.000Z BP Sitting (Pre-Dialysis) 171/82 mmHg BP Sitting (Post-Dialysis) 157/71 mmHg Concurrent Access: falseAV Fistula Forearm (Left) Arterial BP Standing (Pre-Dialysis) 158/75 mmHg Sitti ng Heart Rate Post-Dialysis 71 BPM Sitting Heart Rate Pre-Dialysis 78 BPM Temperatu re Post-Dialysis 98.1 degF Standing Heart Rate Pre-Dialysis 80 BPM Temperature Pre-Dialysis 98.3 degF January 11, 2025 In-Center Hemodialysis Treatment 6703-01-11L45:30:46.000Z 0938-09-32M99:31:46.000Z BP Sitting (Pre-Dialysis) 159/82 mmHg BP Sitting (Post-Dialysis) 162/71 mmHg Concurrent Access: falseAV Fistula Forearm (Left) Arterial BP Standing (Pre-Dialysis) 161/81 mmHg Sitti ng Heart Rate Post-Dialysis 69 BPM Sitting Heart Rate Pre-Dialysis 78 BPM Temperatu re Post-Dialysis 97.9 degF Standing Heart Rate Pre-Dialysis 76 BPM Temperature Pre-Dialysis 98.3 degF January 08, 2025 In-Center Hemodialysis Treatment 5998-80-84F11:42:57.000Z 2618-68-98A78:43:57.000Z BP Sitting (Pre-Dialysis) 165/84 mmHg BP Sitting [...] degF January 06, 2025 In-Center Hemodialysis Treatment 6458-35-45X97:09:24.000Z 9669-87-20H43:00:25.000Z BP Sitting (Pre-Dialysis) 157/81 mmHg BP Sitting (Post-Dialysis) 161/77 mmHg Concurrent Access: falseAV Fistula Forearm (Left) Arterial BP Standing (Pre-Dialysis) 163/84 mmHg BP Standing (P ost-Dialysis) 166/71 mmHg Sitting Heart Rate Pre-Dialysis 63 BPM Sitting Heart Rate Post-Dialysis 72 BPM Standing Heart Rate Pre-Dialysis 76 BPM Standing Heart Rate Post-Dialysis 73 BPM Temperature Pre-Dialysis 97.8 degF Temperature Post -Dialysis 97.7 degF January 04, 2025 In-Center Hemodialysis Treatment 8918-62-70U35:27:00.000Z 5435-19-10Y28:30:53.000Z BP Sitting (Pre-Dialysis) 170/88 mmHg BP Sitting [...] degF January 01, 2025 In-Center Hemodialysis Treatment 3676-33-26A32:35:25.000Z 5418-41-35I20:35:25.000Z BP Sitting (Pre-Dialysis) 168/82 mmHg BP Sitting (Post-Dialysis) 158/71 mmHg Concurrent Access: falseAV Fistula Forearm (Left) Arterial BP Standing (Pre-Dialysis) 134/76 mmHg Sitti ng Heart Rate Post-Dialysis 71 BPM Sitting Heart Rate Pre-Dialysis 74 BPM Temperatu re Post-Dialysis 97.7 degF Standing Heart Rate Pre-Dialysis 72 BPM Temperature Pre-Dialysis 97.7 degF December 30, 2024 In-Center Hemodialysis Treatment 8590-91-55D86:46:52.000Z 4262-75-28K65:43:12.000Z BP Sitting (Pre-Dialysis) 177/84 mmHg BP Sitting [...] degF December 28, 2024 In-Center Hemodialysis Treatment 8211-07-39J34:26:19.000Z 0647-54-19A81:27:20.000Z BP Sitting (Pre-Dialysis) 175/84 mmHg BP Sitting [...] degF December 25, 2024 In-Center Hemodialysis Treatment 8371-35-02H78:34:00.000Z 0147-36-37Q79:32:31.000Z BP Sitting (Pre-Dialysis) 178/87 mmHg BP Sitting [...] degF December 23, 2024 In-Center Hemodialysis Treatment 9386-86-76R36:36:00.000Z 2957-25-99K41:37:59.000Z BP Sitting (Pre-Dialysis) 181/86 mmHg BP Sitting [...] degF December 21, 2024 In-Center Hemodialysis Treatment 5944-58-83F92:16:40.000Z 5932-26-99W20:18:40.000Z BP Sitting (Pre-Dialysis) 169/91 mmHg BP Sitting [...] degF December 18, 2024 In-Center Hemodialysis Treatment 5447-86-10E14:33:46.000Z 3452-87-25Q36:31:47.000Z BP Sitting (Pre-Dialysis) 180/91 mmHg BP Sitting [...] degF December 16, 2024 In-Center Hemodialysis Treatment 1502-67-30S21:32:14.000Z 2392-45-94H47:32:14.000Z BP Sitting (Pre-Dialysis) 138/86 mmHg BP Sitting [...] degF December 14, 2024 In-Center Hemodialysis Treatment 8586-03-66U74:32:41.000Z 6660-73-85Q83:35:42.000Z BP Sitting (Pre-Dialysis) 177/87 mmHg BP Sitting [...] degF December 11, 2024 In-Center Hemodialysis Treatment 6593-17-15A12:45:00.000Z 4745-67-66V49:32:09.000Z BP Sitting (Pre-Dialysis) 197/96 mmHg BP Sitting (Post-Dialysis) 169/79 mmHg Concurrent Access: falseAV Fistula Forearm (Left) Arterial BP Standing (Pre-Dialysis) 181/84 mmHg BP Standing (P ost-Dialysis) 168/75 mmHg Sitting Heart Rate Pre-Dialysis 79 BPM Sitting Heart Rate Post-Dialysis 75 BPM Standing Heart Rate Pre-Dialysis 80 BPM Standing Heart Rate Post-Dialysis 79 BPM Temperature Pre-Dialysis 97.7 degF Temperature Post -Dialysis 98 degF December 09, 2024 In-Center Hemodialysis Treatment 3927-98-39G52:26:36.000Z 3066-44-76P75:31:37.000Z BP Sitting (Pre-Dialysis) 181/90 mmHg BP Sitting [...] degF December 07, 2024 In-Center Hemodialysis Treatment 8096-18-24E94:55:00.000Z 0301-86-66D80:54:04.000Z BP Sitting (Pre-Dialysis) 163/83 mmHg BP Sitting (Post-Dialysis) 148/70 mmHg Concurrent Access: falseAV Fistula Forearm (Left) Arterial BP Standing (Pre-Dialysis) 161/80 mmHg Sitti ng Heart Rate Post-Dialysis 74 BPM Sitting Heart Rate Pre-Dialysis 72 BPM Temperatu re Post-Dialysis 97.7 degF Standing Heart Rate Pre-Dialysis 75 BPM Temperature Pre-Dialysis 97.7 degF December 04, 2024 In-Center Hemodialysis Treatment 5404-51-30L76:32:50.000Z 0907-28-41S52:31:50.000Z BP Sitting (Pre-Dialysis) 173/100 mmHg BP Sitting [...] degF December 02, 2024 In-Center Hemodialysis Treatment 2439-87-73V85:33:48.000Z 8806-43-97W18:31:48.000Z BP Sitting (Pre-Dialysis) 180/88 mmHg BP Sitting (Post-Dialysis) 163/73 mmHg Concurrent Access: falseAV Fistula Forearm (Left) Arterial BP Standing (Pre-Dialysis) 173/87 mmHg BP Standing (P ost-Dialysis) 148/67 mmHg Sitting Heart Rate Pre-Dialysis 80 BPM Sitting Heart Rate Post-Dialysis 74 BPM Standing Heart Rate Pre-Dialysis 80 BPM Standing Heart Rate Post-Dialysis 77 BPM Temperature Pre-Dialysis 97.6 degF Temperature Post -Dialysis 97.8 degF November 30, 2024 In-Center Hemodialysis Treatment 3539-14-89Y50:43:00.000Z 5664-86-27V89:46:16.000Z BP Sitting (Pre-Dialysis) 168/88 mmHg BP Sitting [...] 28, 2024 Additional Day Of Dialysis Treatment 4902-78-83H54:30:25.000Z 2195-62-75R54:27:29.000Z BP Sitting (Pre-Dialysis) 168/90 mmHg BP Sitting (Post-Dialysis) 157/74 mmHg Concurrent Access: falseAV Fistula Forearm (Left) Arterial BP Standing (Pre-Dialysis) 168/81 mmHg Sitti ng Heart Rate Post-Dialysis 68 BPM Sitting Heart Rate Pre-Dialysis 77 BPM Temperatu re Post-Dialysis 98.4 degF Standing Heart Rate Pre-Dialysis 80 BPM Temperature Pre-Dialysis 97.8 degF November 27, 2024 In-Center Hemodialysis Treatment 8063-49-82Z13:35:27.000Z 1860-02-93G21:38:27.000Z BP Sitting (Pre-Dialysis) 174/81 mmHg BP Sitting (Post-Dialysis) 148/72 mmHg Concurrent Access: falseAV Fistula Forearm (Left) Arterial BP Standing (Pre-Dialysis) 163/78 mmHg BP Standing (P ost-Dialysis) 155/72 mmHg Sitting Heart Rate Pre-Dialysis 77 BPM Sitting Heart Rate Post-Dialysis 74 BPM Standing Heart Rate Pre-Dialysis 78 BPM Standing Heart Rate Post-Dialysis 77 BPM Temperature Pre-Dialysis 97.7 degF Temperature Post -Dialysis 98.2 degF November 25, 2024 In-Center Hemodialysis Treatment 7561-97-35F77:02:54.000Z 4580-71-90R44:01:55.000Z BP Sitting (Pre-Dialysis) 164/84 mmHg BP Sitting [...] degF November 23, 2024 In-Center Hemodialysis Treatment 6894-59-01N43:36:21.000Z 8142-92-66Y05:37:22.000Z BP Sitting (Pre-Dialysis) 165/87 mmHg BP Sitting [...] degF November 20, 2024 In-Center Hemodialysis Treatment 7334-65-34J19:33:33.000Z 8202-79-79L51:34:33.000Z BP Sitting (Pre-Dialysis) 169/87 mmHg BP Sitting (Post-Dialysis) 152/72 mmHg Concurrent Access: falseAV Fistula Forearm (Left) Arterial BP Standing (Pre-Dialysis) 164/78 mmHg BP Standing (P ost-Dialysis) 151/74 mmHg Sitting Heart Rate Pre-Dialysis 76 BPM Sitting Heart Rate Post-Dialysis 74 BPM Standing Heart Rate Pre-Dialysis 76 BPM Standing Heart Rate Post-Dialysis 77 BPM Temperature Pre-Dialysis 97.7 degF Temperature Post -Dialysis 98 degF November 18, 2024 In-Center Hemodialysis Treatment 6456-07-83P80:50:00.000Z 3661-91-56C81:47:01.000Z BP Sitting (Pre-Dialysis) 164/87 mmHg BP Sitting [...] degF November 16, 2024 In-Center Hemodialysis Treatment 1151-14-03Y09:08:28.000Z 6674-07-39Y09:27:28.000Z BP Sitting (Pre-Dialysis) 168/81 mmHg BP Sitting (Post-Dialysis) 103/58 mmHg Concurrent Access: falseAV Fistula Forearm (Left) Arterial BP Standing (Pre-Dialysis) 160/77 mmHg BP Standing (P ost-Dialysis) 108/66 mmHg Sitting Heart Rate Pre-Dialysis 75 BPM Sitting Heart Rate Post-Dialysis 96 BPM Standing Heart Rate Pre-Dialysis 76 BPM Standing Heart Rate Post-Dialysis 80 BPM Temperature Pre-Dialysis 97.8 degF Temperature Post -Dialysis 97.7 degF November 13, 2024 In-Center Hemodialysis Treatment 450 mL/min 500 mL/min Concurrent Access: false November 11, 2024 In-Center Hemodialysis Treatment 450 mL/min 500 mL/min Concurrent Access: false November 06, 2024 In-Center Hemodialysis Treatment 20 25 -0 4- 18 T1 0: 53 :0 0. 00 0Z [...] degF November 04, 2024 In-Center Hemodialysis Treatment 0373-97-23H47:51:00.000Z 5297-83-76X64:50:14.000Z BP Sitting (Pre-Dialysis) 171/81 mmHg BP Sitting [...] degF November 02, 2024 In-Center Hemodialysis Treatment 2220-50-24N15:07:22.000Z 8338-76-26J03:03:09.000Z BP Sitting (Pre-Dialysis) 157/80 mmHg BP Sitting [...] degF October 30, 2024 In-Center Hemodialysis Treatment 0609-39-11G98:52:00.000Z 6402-70-70G50:52:23.000Z BP Sitting (Pre-Dialysis) 188/82 mmHg BP Sitting (Post-Dialysis) 152/74 mmHg Concurrent Access: falseAV Fistula Forearm (Left) Arterial BP Standing (Pre-Dialysis) 167/81 mmHg BP Standing (P ost-Dialysis) 158/73 mmHg Sitting Heart Rate Pre-Dialysis 76 BPM Sitting Heart Rate Post-Dialysis 68 BPM Standing Heart Rate Pre-Dialysis 76 BPM Standing Heart Rate Post-Dialysis 69 BPM Temperature Pre-Dialysis 97.9 degF Temperature Post -Dialysis 98 degF October 28, 2024 In-Center Hemodialysis Treatment 7980-37-80U60:53:50.000Z 6214-45-23B66:56:50.000Z BP Sitting (Pre-Dialysis) 177/87 mmHg BP Sitting [...] degF October 26, 2024 In-Center Hemodialysis Treatment 0947-87-34M76:43:16.000Z 6888-43-08S18:32:17.000Z BP Sitting (Pre-Dialysis) 176/91 mmHg BP Sitting (Post-Dialysis) 164/75 mmHg Concurrent Access: falseAV Fistula Forearm (Left) Arterial BP Standing (Pre-Dialysis) 171/80 mmHg BP Standing (P ost-Dialysis) 149/66 mmHg Sitting Heart Rate Pre-Dialysis 75 BPM Sitting Heart Rate Post-Dialysis 73 BPM Standing Heart Rate Pre-Dialysis 79 BPM Standing Heart Rate Post-Dialysis 78 BPM Temperature Pre-Dialysis 98 degF Temperature Post -Dialysis 97.4 degF October 23, 2024 In-Center Hemodialysis Treatment 0572-64-65K84:45:42.000Z 4122-12-66B71:52:43.000Z BP Sitting (Pre-Dialysis) 168/88 mmHg BP Sitting [...] degF October 21, 2024 In-Center Hemodialysis Treatment 3715-60-59R58:53:15.000Z 2545-41-54X17:55:15.000Z BP Sitting (Pre-Dialysis) 169/89 mmHg BP Sitting [...] degF October 19, 2024 In-Center Hemodialysis Treatment 3657-57-76S25:46:42.000Z 1774-47-17K63:46:43.000Z BP Sitting (Pre-Dialysis) 166/82 mmHg BP Sitting (Post-Dialysis) 136/75 mmHg Concurrent Access: falseAV Fistula Forearm (Left) Arterial BP Standing (Pre-Dialysis) 166/83 mmHg BP Standing (P ost-Dialysis) 124/77 mmHg Sitting Heart Rate Pre-Dialysis 75 BPM Sitting Heart Rate Post-Dialysis 74 BPM Standing Heart Rate Pre-Dialysis 82 BPM Standing Heart Rate Post-Dialysis 80 BPM Temperature Pre-Dialysis 98 degF Temperature Post -Dialysis 98 degF October 16, 2024 In-Center Hemodialysis Treatment 7589-96-23X51:00:53.000Z 1929-36-51W77:01:53.000Z BP Sitting (Pre-Dialysis) 171/86 mmHg BP Sitting (Post-Dialysis) 172/80 mmHg Concurrent Access: falseAV Fistula Forearm (Left) Arterial BP Standing (Pre-Dialysis) 181/81 mmHg Sitting Heart Rate Post-Dialysis 77 BPM Sitting Heart Rate Pre-Dialysis 83 BPM Temperatu re Post-Dialysis 98 degF Standing Heart Rate Pre-Dialysis 83 BPM Temperature Pre-Dialysis 98 degF October 14, 2024 In-Center Hemodialysis Treatment 8188-69-59L37:54:20.000Z 3471-74-59F88:55:20.000Z BP Sitting (Pre-Dialysis) 184/87 mmHg BP Sitting (Post-Dialysis) 144/70 mmHg Concurrent Access: falseAV Fistula Forearm (Left) Arterial BP Standing (Pre-Dialysis) 178/85 mmHg BP Standing (P ost-Dialysis) 146/70 mmHg Sitting Heart Rate Pre-Dialysis 79 BPM Sitting Heart Rate Post-Dialysis 75 BPM Standing Heart Rate Pre-Dialysis 81 BPM Standing Heart Rate Post-Dialysis 79 BPM Temperature Pre-Dialysis 98.3 degF Temperature Post -Dialysis 97.5 degF October 12, 2024 In-Center Hemodialysis Treatment 1712-12-75T05:41:00.000Z 1416-06-81M63:37:04.000Z BP Sitting (Pre-Dialysis) 171/81 mmHg BP Sitting (Post-Dialysis) 142/66 mmHg Concurrent Access: falseAV Fistula Forearm (Left) Arterial BP Standing (Pre-Dialysis) 160/78 mmHg BP Standing (P ost-Dialysis) 131/61 mmHg Sitting Heart Rate Pre-Dialysis 74 BPM Sitting Heart Rate Post-Dialysis 75 BPM Standing Heart Rate Pre-Dialysis 77 BPM Standing Heart Rate Post-Dialysis 79 BPM Temperature Pre-Dialysis 98.4 degF October 09, 2024 In-Center Hemodialysis Treatment 9597-15-22C57:38:00.000Z 2524-52-25E56:43:15.000Z BP Sitting (Pre-Dialysis) 180/87 mmHg BP Sitting [...] degF October 07, 2024 In-Center Hemodialysis Treatment 0490-14-78C18:43:58.000Z 1485-52-46Z63:44:58.000Z BP Sitting (Pre-Dialysis) 192/102 mmHg BP Sitting (Post-Dialysis) 163/80 mmHg Concurrent Access: falseAV Fistula Forearm (Left) Arterial BP Standing (Pre-Dialysis) 188/86 mmHg Sitti ng Heart Rate Post-Dialysis 75 BPM Sitting Heart Rate Pre-Dialysis 82 BPM Temperatu re Post-Dialysis 97.8 degF Standing Heart Rate Pre-Dialysis 84 BPM Temperature Pre-Dialysis 96.8 degF October 05, 2024 In-Center Hemodialysis Treatment 5880-52-76B41:52:25.000Z 5598-86-89A51:54:25.000Z BP Sitting (Pre-Dialysis) 177/79 mmHg BP Sitting (Post-Dialysis) 159/75 mmHg Concurrent Access: falseAV Fistula Forearm (Left) Arterial Sitting Heart Rate Pre-Dialysis 84 BPM BP Standing (Post-Dialysis) 143/38 mmHg Temperature Pre-Dialysis 98.8 degF Sitting Heart Ra te Post-Dialysis 77 BPM Standing Heart Rate Post-Sandra lysis 79 BPM Temperature Post-Dialysis 98 degF October 02, 2024 In-Center Hemodialysis Treatment 6809-32-14U75:50:57.000Z 1229-21-20A08:55:57.000Z BP Sitting (Pre-Dialysis) 182/84 mmHg BP Sitting (Post-Dialysis) 140/70 mmHg Concurrent Access: falseAV Fistula Forearm (Left) Arterial BP Standing (Pre-Dialysis) 177/81 mmHg Sitti ng Heart Rate Post-Dialysis 77 BPM Sitting Heart Rate Pre-Dialysis 79 BPM Temperatu re Post-Dialysis 97.9 degF Standing Heart Rate Pre-Dialysis 79 BPM Temperature Pre-Dialysis 98 degF September 30, 2024 In-Center Hemodialysis Treatment 8672-85-77N72:58:00.000Z 9580-71-02J33:59:00.000Z BP Sitting (Pre-Dialysis) 176/44 mmHg BP Sitting [...] degF September 28, 2024 In-Center Hemodialysis Treatment 5416-70-58X70:47:50.000Z 3244-23-68V44:49:51.000Z BP Sitting (Pre-Dialysis) 174/86 mmHg BP Sitting [...] degF September 26, 2024 In-Center Hemodialysis Treatment 3720-39-02L67:32:10.000Z 1342-43-94R91:31:10.000Z BP Sitting (Pre-Dialysis) 174/80 mmHg BP Sitting [...] degF September 23, 2024 In-Center Hemodialysis Treatment 2082-51-31C80:58:00.000Z 0445-00-47V58:04:45.000Z BP Sitting (Pre-Dialysis) 176/87 mmHg BP Sitting [...] degF September 21, 2024 In-Center Hemodialysis Treatment 5536-87-14E15:07:11.000Z 2895-85-36F68:11:12.000Z BP Sitting (Pre-Dialysis) 165/103 mmHg BP Sitting [...] degF September 18, 2024 In-Center Hemodialysis Treatment 7475-47-17S87:07:22.000Z 0605-89-33C54:13:23.000Z BP Sitting (Pre-Dialysis) 171/86 mmHg BP Sitting [...] degF September 16, 2024 In-Center Hemodialysis Treatment 0212-39-68O68:05:05.000Z 3910-91-56T48:02:06.000Z BP Sitting (Pre-Dialysis) 167/86 mmHg BP Sitting (Post-Dialysis) 171/83 mmHg Concurrent Access: falseAV Fistula Forearm (Left) Arterial BP Standing (Pre-Dialysis) 165/84 mmHg BP Standing (P ost-Dialysis) 153/72 mmHg Sitting Heart Rate Pre-Dialysis 89 BPM Sitting Heart Rate Post-Dialysis 73 BPM Standing Heart Rate Pre-Dialysis 82 BPM Standing Heart Rate Post-Dialysis 75 BPM Temperature Pre-Dialysis 97.7 degF Temperature Post -Dialysis 97.7 degF September 14, 2024 In-Center Hemodialysis Treatment 2226-19-59V34:02:00.000Z 1903-55-31R62:01:33.000Z BP Sitting (Pre-Dialysis) 163/86 mmHg BP Sitting [...] degF September 11, 2024 In-Center Hemodialysis Treatment 1724-20-10R52:12:57.000Z 9571-89-29I20:12:57.000Z BP Sitting (Pre-Dialysis) 177/85 mmHg BP Sitting [...] degF September 09, 2024 In-Center Hemodialysis Treatment 1890W71:01:24.000Z 6830-59-87B29:01:24.000Z BP Sitting (Pre-Dialysis) 176/87 mmHg BP Sitting [...] degF September 07, 2024 In-Center Hemodialysis Treatment 2644-04-29O89:00:00.000Z 5884-62-32R30:01:51.000Z BP Sitting (Pre-Dialysis) 177/88 mmHg BP Sitting (Post-Dialysis) 144/60 mmHg Concurrent Access: falseAV Fistula Forearm (Left) Arterial BP Standing (Pre-Dialysis) 176/77 mmHg Sitti ng Heart Rate Post-Dialysis 79 BPM Sitting Heart Rate Pre-Dialysis 80 BPM Temperatu re Post-Dialysis 97.5 degF Standing Heart Rate Pre-Dialysis 78 BPM Temperature Pre-Dialysis 97.3 degF September 04, 2024 In-Center Hemodialysis Treatment 6115-32-89U41:54:00.000Z 7640-28-98T06:57:25.000Z BP Sitting (Pre-Dialysis) 181/91 mmHg BP Sitting [...] degF September 02, 2024 In-Center Hemodialysis Treatment 7829-95-23N27:06:51.000Z 4799-58-06K76:38:52.000Z BP Sitting (Pre-Dialysis) 183/92 mmHg BP Sitting [...] degF August 31, 2024 In-Center Hemodialysis Treatment 1854-37-74I03:07:18.000Z 4185-42-59J36:18:19.000Z BP Sitting (Pre-Dialysis) 143/73 mmHg BP Sitting [...] degF August 28, 2024 In-Center Hemodialysis Treatment 1962-76-97U60:11:02.000Z 8016-14-25N55:13:03.000Z BP Sitting (Pre-Dialysis) 168/80 mmHg BP Sitting [...] degF August 26, 2024 In-Center Hemodialysis Treatment 4107-77-28F72:54:00.000Z 9739-41-54W92:32:02.000Z BP Sitting (Pre-Dialysis) 163/79 mmHg BP Sitting [...] degF August 24, 2024 In-Center Hemodialysis Treatment 3637-85-23T61:06:28.000Z 6452-54-24E65:03:29.000Z BP Sitting (Pre-Dialysis) 164/80 mmHg BP Sitting [...] degF August 21, 2024 In-Center Hemodialysis Treatment 4239-05-86H40:01:30.000Z 0279-79-58E99:01:31.000Z BP Sitting (Pre-Dialysis) 173/80 mmHg BP Sitting [...] degF August 19, 2024 In-Center Hemodialysis Treatment 6583-97-99D43:51:57.000Z 0956-21-53J06:56:58.000Z BP Sitting (Pre-Dialysis) 181/87 mmHg BP Sitting [...] degF August 18, 2024 In-Center Hemodialysis Treatment 9337-65-00O55:38:48.000Z 0092-95-13X39:39:49.000Z BP Sitting (Pre-Dialysis) 155/49 mmHg BP Sitting (Post-Dialysis) 166/73 mmHg Concurrent Access: falseAV Fistula Forearm (Left) Arterial BP Standing (Pre-Dialysis) 140/71 mmHg Sitting Heart Rate Post-Dialysis 67 BPM Sitting Heart Rate Pre-Dialysis 68 BPM Temperatu re Post-Dialysis 97 degF Standing Heart Rate Pre-Dialysis 75 BPM Temperature Pre-Dialysis 97.8 degF August 14, 2024 In-Center Hemodialysis Treatment 7967-93-58H00:00:00.000Z 9294-88-67V04:59:35.000Z BP Sitting (Pre-Dialysis) 161/81 mmHg BP Sitting [...] degF August 12, 2024 In-Center Hemodialysis Treatment 4655-02-16A84:09:02.000Z 3092-92-03S62:11:02.000Z BP Sitting (Pre-Dialysis) 174/98 mmHg BP Sitting (Post-Dialysis) 153/70 mmHg Concurrent Access: falseAV Fistula Forearm (Left) Arterial BP Standing (Pre-Dialysis) 174/81 mmHg Sitti ng Heart Rate Post-Dialysis 74 BPM Sitting Heart Rate Pre-Dialysis 82 BPM Temperatu re Post-Dialysis 98.2 degF Standing Heart Rate Pre-Dialysis 83 BPM Temperature Pre-Dialysis 97.5 degF August 10, 2024 In-Center Hemodialysis Treatment 2876-24-03W85:57:29.000Z 9940-06-72M81:59:29.000Z BP Sitting (Pre-Dialysis) 152/77 mmHg BP Sitting [...] degF August 07, 2024 In-Center Hemodialysis Treatment 7250-48-91M67:58:00.000Z 3797-85-23S35:02:00.000Z BP Sitting (Pre-Dialysis) 158/79 mmHg BP Sitting [...] degF August 06, 2024 In-Center Hemodialysis Treatment 4196-34-36P42:38:00.000Z 1171-64-25B64:41:03.000Z BP Sitting (Pre-Dialysis) 178/81 mmHg BP Sitting [...] degF August 03, 2024 In-Center Hemodialysis Treatment 0120-46-21G10:56:00.000Z 8847-67-46W64:58:36.000Z BP Sitting (Pre-Dialysis) 177/86 mmHg BP Sitting [...] degF July 31, 2024 In-Center Hemodialysis Treatment 7327-02-84J79:07:00.000Z 3696-57-44S74:09:01.000Z BP Sitting (Pre-Dialysis) 176/82 mmHg BP Sitting (Post-Dialysis) 146/69 mmHg Concurrent Access: falseAV Fistula Forearm (Left) Arterial BP Standing (Pre-Dialysis) 175/80 mmHg BP Standing (P ost-Dialysis) 23/53 mmHg Sitting Heart Rate Pre-Dialysis 75 BPM Sitting Heart Rate Post-Dialysis 70 BPM Standing Heart Rate Pre-Dialysis 75 BPM Standing Heart Rate Post-Dialysis 74 BPM Temperature Pre-Dialysis 98 degF Temperature Post -Dialysis 98 degF July 29, 2024 In-Center Hemodialysis Treatment 7235-81-58V21:57:00.000Z 2058-09-52X67:01:28.000Z BP Sitting (Pre-Dialysis) 166/77 mmHg BP Sitting [...] degF July 28, 2024 In-Center Hemodialysis Treatment 2184-74-36Z86:54:08.000Z 2424-81-93F71:53:08.000Z BP Sitting (Pre-Dialysis) 146/56 mmHg BP Sitting [...] degF July 24, 2024 In-Center Hemodialysis Treatment 1419-47-00K46:58:05.000Z 4132-98-38A87:04:05.000Z BP Sitting (Pre-Dialysis) 140/73 mmHg BP Sitting [...] degF July 21, 2024 In-Center Hemodialysis Treatment 5420-20-51W54:45:15.000Z 6417-61-58O20:55:16.000Z BP Sitting (Pre-Dialysis) 159/79 mmHg BP Sitting [...] degF July 19, 2024 In-Center Hemodialysis Treatment 7668-34-39L34:00:42.000Z 0935-06-43M79:15:42.000Z BP Sitting (Pre-Dialysis) 141/67 mmHg BP Sitting [...] degF July 17, 2024 In-Center Hemodialysis Treatment 8375-04-81Z83:54:09.000Z 1359-71-21J42:54:09.000Z BP Sitting (Pre-Dialysis) 142/71 mmHg BP Sitting [...] degF July 14, 2024 In-Center Hemodialysis Treatment 1923-72-52S89:57:00.000Z 6509-55-11M21:57:20.000Z BP Sitting (Pre-Dialysis) 149/76 mmHg BP Sitting [...] degF July 12, 2024 In-Center Hemodialysis Treatment 7803-06-02H91:43:46.000Z 9031-00-68U11:47:47.000Z BP Sitting (Pre-Dialysis) 173/89 mmHg BP Sitting [...] degF July 10, 2024 In-Center Hemodialysis Treatment 7638-90-17V58:00:13.000Z 1813-30-58W40:01:14.000Z BP Sitting (Pre-Dialysis) 157/82 mmHg BP Sitting [...] degF July 08, 2024 In-Center Hemodialysis Treatment 2960-37-53W73:00:00.000Z 8469-45-88V93:01:41.000Z BP Sitting (Pre-Dialysis) 168/80 mmHg BP Sitting [...] degF July 06, 2024 In-Center Hemodialysis Treatment 1565-10-86K15:02:07.000Z 2201-70-04O40:01:08.000Z BP Sitting (Pre-Dialysis) 153/75 mmHg BP Sitting [...] degF July 03, 2024 In-Center Hemodialysis Treatment 4784-99-77Y57:09:18.000Z 0233-24-50A06:38:18.000Z BP Sitting (Pre-Dialysis) 175/86 mmHg BP Sitting [...] degF July 01, 2024 In-Center Hemodialysis Treatment 1336-19-77I65:13:45.000Z 3210-17-20L31:57:45.000Z BP Sitting (Pre-Dialysis) 166/81 mmHg BP Sitting [...] degF June 29, 2024 In-Center Hemodialysis Treatment 3950-61-55R45:07:12.000Z 9361-86-65E28:12:12.000Z BP Sitting (Pre-Dialysis) 162/80 mmHg BP Sitting [...] degF June 26, 2024 In-Center Hemodialysis Treatment 3352-25-77F62:02:04.000Z 5766-96-76J87:06:05.000Z BP Sitting (Pre-Dialysis) 154/78 mmHg BP Sitting [...] degF June 24, 2024 In-Center Hemodialysis Treatment 1527-75-50Q72:11:59.000Z 3175-08-81C67:10:59.000Z BP Sitting (Pre-Dialysis) 154/76 mmHg BP Sitting [...] -Dialysis 97.6 degF 2024 In-Center Hemodialysis Treatment 1853-95-12N04:55:00.000Z 5833-12-29I29:59:53.000Z BP Sitting (Pre-Dialysis) 150/104 mmHg BP Sitting [...] degF June 19, 2024 In-Center Hemodialysis Treatment 2145-39-91U41:54:44.000Z 3248-07-40A36:57:45.000Z BP Sitting (Pre-Dialysis) 149/81 mmHg BP Sitting [...] degF June 16, 2024 In-Center Hemodialysis Treatment 4528-99-01C22:54:00.000Z 0070-45-95B77:53:37.000Z BP Sitting (Pre-Dialysis) 143/76 mmHg BP Sitting [...] degF June 14, 2024 In-Center Hemodialysis Treatment 4818-98-87O57:12:30.000Z 2198-36-10Q09:15:31.000Z BP Sitting (Pre-Dialysis) 168/80 mmHg BP Sitting (Post-Dialysis) 132/62 mmHg Concurrent Access: falseAV Fistula Forearm (Left) Arterial BP Standing (Pre-Dialysis) 153/75 mmHg Sitti ng Heart Rate Post-Dialysis 75 BPM Sitting Heart Rate Pre-Dialysis 73 BPM Temperatu re Post-Dialysis 97.8 degF Standing Heart Rate Pre-Dialysis 77 BPM Temperature Pre-Dialysis 97.8 degF June 12, 2024 In-Center Hemodialysis Treatment 8351-57-88O73:56:26.000Z 5569-08-27Z03:00:25.000Z BP Sitting (Pre-Dialysis) 157/60 mmHg BP Sitting (Post-Dialysis) 106/74 mmHg Concurrent Access: falseAV Fistula Forearm (Left) Arterial BP Standing (Pre-Dialysis) 159/60 mmHg BP Standing (P ost-Dialysis) 98/79 mmHg Sitting Heart Rate Pre-Dialysis 60 BPM Sitting Heart Rate Post-Dialysis 80 BPM Standing Heart Rate Pre-Dialysis 72 BPM Standing Heart Rate Post-Dialysis 80 BPM Temperature Pre-Dialysis 97.6 degF Temperature Post -Dialysis 97.6 degF June 10, 2024 In-Center Hemodialysis Treatment 6406-10-11L43:58:20.000Z 0970-49-15V04:01:19.000Z BP Sitting (Pre-Dialysis) 161/83 mmHg BP Sitting [...] degF June 08, 2024 In-Center Hemodialysis Treatment 3115-05-11U17:58:41.000Z 2073-26-26H07:52:12.000Z BP Sitting (Pre-Dialysis) 152/76 mmHg BP Sitting (Post-Dialysis) 148/75 mmHg Concurrent Access: falseAV Fistula Forearm (Left) Arterial BP Standing (Pre-Dialysis) 148/76 mmHg Sitting Heart Rate Post-Dialysis 61 BPM Sitting Heart Rate Pre-Dialysis 64 BPM Temperatu re Post-Dialysis 98 degF Standing Heart Rate Pre-Dialysis 66 BPM Temperature Pre-Dialysis 97.2 degF June 05, 2024 In-Center Hemodialysis Treatment 3333-27-09N16:00:00.000Z 3175-38-53Y91:01:06.000Z BP Sitting (Pre-Dialysis) 157/74 mmHg BP Sitting [...] degF June 04, 2024 In-Center Hemodialysis Treatment 0612-42-80V88:58:11.000Z 1249-32-05Y69:03:12.000Z BP Sitting (Pre-Dialysis) 148/75 mmHg BP Sitting [...] degF June 01, 2024 In-Center Hemodialysis Treatment 7119-80-81U13:03:05.000Z 5124-13-81P84:07:06.000Z BP Sitting (Pre-Dialysis) 175/80 mmHg BP Sitting [...] degF May 29, 2024 In-Center Hemodialysis Treatment 8140-13-35F83:56:00.000Z 3325-28-42O83:58:11.000Z BP Sitting (Pre-Dialysis) 158/81 mmHg BP Sitting [...] degF May 27, 2024 In-Center Hemodialysis Treatment 4942-18-81Y47:56:00.000Z 3029-31-32N80:57:06.000Z BP Sitting (Pre-Dialysis) 153/80 mmHg BP Sitting [...] degF May 25, 2024 In-Center Hemodialysis Treatment 7054-73-00L09:12:05.000Z 1840-53-27C27:13:06.000Z BP Sitting (Pre-Dialysis) 165/87 mmHg BP Sitting [...] degF May 22, 2024 In-Center Hemodialysis Treatment 7044-31-80M63:09:05.000Z 0113-33-61H23:07:06.000Z BP Sitting (Pre-Dialysis) 182/88 mmHg BP Sitting [...] degF May 20, 2024 In-Center Hemodialysis Treatment 7154-14-99R37:53:05.000Z 0236-90-71L08:53:06.000Z BP Sitting (Pre-Dialysis) 175/88 mmHg BP Sitting [...] degF May 18, 2024 In-Center Hemodialysis Treatment 8041-36-58I68:58:00.000Z 4078-90-39K43:02:25.000Z BP Sitting (Pre-Dialysis) 179/87 mmHg BP Sitting [...] degF May 15, 2024 In-Center Hemodialysis Treatment 6272-51-10Q48:58:05.000Z 7105-64-98D93:02:06.000Z BP Sitting (Pre-Dialysis) 189/93 mmHg BP Sitting (Post-Dialysis) 105/66 mmHg Concurrent Access: falseAV Fistula Forearm (Left) Arterial BP Standing (Pre-Dialysis) 158/80 mmHg Sitti ng Heart Rate Post-Dialysis 84 BPM Sitting Heart Rate Pre-Dialysis 64 BPM Temperatu re Post-Dialysis 98.1 degF Standing Heart Rate Pre-Dialysis 71 BPM Temperature Pre-Dialysis 97.8 degF May 13, 2024 In-Center Hemodialysis Treatment 5648-66-11I56:01:05.000Z 1507-69-08S39:04:06.000Z BP Sitting (Pre-Dialysis) 169/93 mmHg BP Sitting [...] 12, 2024 Additional Day Of Dialysis Treatment 5270-87-66F77:31:25.000Z 6655-86-12D33:33:25.000Z BP Sitting (Pre-Dialysis) 164/86 mmHg BP Sitting [...] degF May 11, 2024 In-Center Hemodialysis Treatment 3859-50-69H54:42:13.000Z 0367-51-17F87:39:08.000Z BP Sitting (Pre-Dialysis) 166/86 mmHg BP Sitting (Post-Dialysis) 150/77 mmHg Concurrent Access: falseAV Fistula Forearm (Left) Arterial Sitting Heart Rate Pre-Dialysis 75 BPM Sitting H eart Rate Post-Dialysis 67 BPM Temperature Pre-Dialysis 97.5 degF Temperature Post -Dialysis 97.5 degF May 08, 2024 In-Center Hemodialysis Treatment 7737-22-90J41:01:05.000Z 1633-06-26J40:03:06.000Z BP Sitting (Pre-Dialysis) 175/85 mmHg BP Sitting [...] degF May 07, 2024 In-Center Hemodialysis Treatment 3376-25-49C27:57:08.000Z 0572-88-67Y32:01:08.000Z BP Sitting (Pre-Dialysis) 141/90 mmHg BP Sitting [...] degF May 04, 2024 In-Center Hemodialysis Treatment 3448-62-22O84:55:00.000Z 7565-82-78N57:56:07.000Z BP Sitting (Pre-Dialysis) 156/78 mmHg BP Sitting [...] degF May 01, 2024 In-Center Hemodialysis Treatment 5685-61-55I21:59:07.000Z 6376-05-64W52:00:06.000Z BP Sitting (Pre-Dialysis) 162/80 mmHg BP Sitting [...] degF April 29, 2024 In-Center Hemodialysis Treatment 7552-01-29Y00:54:00.000Z 6101-89-89U28:57:06.000Z BP Sitting (Pre-Dialysis) 156/77 mmHg BP Sitting [...] degF April 27, 2024 In-Center Hemodialysis Treatment 9540-88-58J77:59:05.000Z 6441-73-31R04:46:06.000Z BP Sitting (Pre-Dialysis) 159/77 mmHg BP Sitting [...] degF April 24, 2024 In-Center Hemodialysis Treatment 0240-10-92N17:56:00.000Z 5336-40-38T24:56:06.000Z BP Sitting (Pre-Dialysis) 163/89 mmHg BP Sitting [...] degF April 22, 2024 In-Center Hemodialysis Treatment 6132-55-52E04:00:11.000Z 6552-06-42A33:02:11.000Z BP Sitting (Pre-Dialysis) 168/92 mmHg BP Sitting (Post-Dialysis) 149/69 mmHg Concurrent Access: falseAV Fistula Forearm (Left) Arterial BP Standing (Pre-Dialysis) 166/79 mmHg Sitti ng Heart Rate Post-Dialysis 64 BPM Sitting Heart Rate Pre-Dialysis 65 BPM Temperatu re Post-Dialysis 98.2 degF Standing Heart Rate Pre-Dialysis 61 BPM Temperature Pre-Dialysis 98 degF April 20, 2024 In-Center Hemodialysis Treatment 5169-08-11D79:01:00.000Z 8603-07-35B83:05:11.000Z BP Sitting (Pre-Dialysis) 157/82 mmHg BP Sitting [...] degF April 17, 2024 In-Center Hemodialysis Treatment 3061-97-25W20:01:10.000Z 5338-06-09B37:07:11.000Z BP Sitting (Pre-Dialysis) 163/141 mmHg BP Sitting [...] degF April 15, 2024 In-Center Hemodialysis Treatment 9992-50-94O80:58:00.000Z 7787-23-02P05:01:06.000Z BP Sitting (Pre-Dialysis) 168/121 mmHg BP Sitting [...] degF April 13, 2024 In-Center Hemodialysis Treatment 8000-27-38U14:55:00.000Z 0603-50-04V00:59:06.000Z BP Sitting (Pre-Dialysis) 153/91 mmHg BP Sitting [...] degF April 10, 2024 In-Center Hemodialysis Treatment 5952-65-23G06:50:00.000Z 5105-85-25U55:59:05.000Z BP Sitting (Pre-Dialysis) 180/88 mmHg BP Sitting [...] degF April 08, 2024 In-Center Hemodialysis Treatment 2329-14-18V96:55:05.000Z 8590-56-32P02:58:06.000Z BP Sitting (Pre-Dialysis) 156/91 mmHg BP Sitting [...] degF April 06, 2024 In-Center Hemodialysis Treatment 6106-08-81X21:05:05.000Z 8226-87-86P77:09:06.000Z BP Sitting (Pre-Dialysis) 160/83 mmHg BP Sitting (Post-Dialysis) 166/70 mmHg Concurrent Access: falseAV Fistula Forearm (Left) Arterial BP Standing (Pre-Dialysis) 163/80 mmHg Sitti ng Heart Rate Post-Dialysis 56 BPM Sitting Heart Rate Pre-Dialysis 60 BPM Temperatu re Post-Dialysis 98.2 degF Standing Heart Rate Pre-Dialysis 60 BPM Temperature Pre-Dialysis 97.8 degF April 03, 2024 In-Center Hemodialysis Treatment 2079-49-98G50:05:05.000Z 2426-20-89Q82:07:06.000Z BP Sitting (Pre-Dialysis) 165/79 mmHg BP Sitting (Post-Dialysis) 153/72 mmHg Concurrent Access: falseAV Fistula Forearm (Left) Arterial BP Standing (Pre-Dialysis) 159/79 mmHg BP Standing (P ost-Dialysis) 161/70 mmHg Sitting Heart Rate Pre-Dialysis 65 BPM Sitting Heart Rate Post-Dialysis 59 BPM Standing Heart Rate Pre-Dialysis 66 BPM Standing Heart Rate Post-Dialysis 60 BPM Temperature Pre-Dialysis 97.6 degF Temperature Post -Dialysis 97.2 degF April 01, 2024 In-Center Hemodialysis Treatment 3193-69-38X44:13:06.000Z 6188-63-50E35:03:07.000Z BP Sitting (Pre-Dialysis) 155/73 mmHg BP Sitting [...] degF March 30, 2024 In-Center Hemodialysis Treatment 5776-01-85Y07:57:00.000Z 4536-15-84L94:02:06.000Z BP Sitting (Pre-Dialysis) 165/79 mmHg BP Sitting [...] degF March 27, 2024 In-Center Hemodialysis Treatment 3629-99-50I69:57:00.000Z 8204-65-80C04:00:17.000Z BP Sitting (Pre-Dialysis) 158/78 mmHg BP Sitting [...] degF March 25, 2024 In-Center Hemodialysis Treatment 4387-78-66O10:59:00.000Z 4754-99-21N36:02:17.000Z BP Sitting (Pre-Dialysis) 167/82 mmHg BP Sitting [...] degF March 23, 2024 In-Center Hemodialysis Treatment 3937-02-02I59:55:00.000Z 7341-73-28G65:59:17.000Z BP Sitting (Pre-Dialysis) 155/84 mmHg BP Sitting [...] degF March 20, 2024 In-Center Hemodialysis Treatment 4132-93-95E46:56:35.000Z 3890-77-64E53:00:36.000Z BP Sitting (Pre-Dialysis) 153/75 mmHg BP Sitting [...] degF March 18, 2024 In-Center Hemodialysis Treatment 7181-50-54S21:01:35.000Z 2936-28-49W52:02:36.000Z BP Sitting (Pre-Dialysis) 158/78 mmHg BP Sitting [...] degF March 16, 2024 In-Center Hemodialysis Treatment 2587-87-04Q81:02:35.000Z 6836-28-50F35:11:00.000Z BP Sitting (Pre-Dialysis) 153/80 mmHg BP Sitting [...] degF March 14, 2024 In-Center Hemodialysis Treatment 2863-14-05A54:10:13.000Z 4878-02-54Y06:12:14.000Z BP Sitting (Pre-Dialysis) 154/78 mmHg BP Sitting [...] degF March 11, 2024 In-Center Hemodialysis Treatment 7016-13-85X98:53:00.000Z 1181-95-74S89:57:24.000Z BP Sitting (Pre-Dialysis) 158/89 mmHg BP Sitting [...] degF March 09, 2024 In-Center Hemodialysis Treatment 1762-36-40P57:55:00.000Z 6841-23-91X36:00:24.000Z BP Sitting (Pre-Dialysis) 146/76 mmHg BP Sitting (Post-Dialysis) 150/70 mmHg Concurrent Access: falseAV Fistula Forearm (Left) Arterial BP Standing (Pre-Dialysis) 146/75 mmHg Sitti ng Heart Rate Post-Dialysis 58 BPM Sitting Heart Rate Pre-Dialysis 60 BPM Temperatu re Post-Dialysis 98.1 degF Standing Heart Rate Pre-Dialysis 60 BPM Temperature Pre-Dialysis 97.3 degF March 06, 2024 In-Center Hemodialysis Treatment 0691-80-25K19:01:10.000Z 1716-24-25D77:03:11.000Z BP Sitting (Pre-Dialysis) 153/82 mmHg BP Sitting [...] degF March 04, 2024 In-Center Hemodialysis Treatment 8088-52-32R89:50:00.000Z 5343-84-27I88:02:11.000Z BP Sitting (Pre-Dialysis) 155/81 mmHg BP Sitting [...] degF March 02, 2024 In-Center Hemodialysis Treatment 2143-19-44L76:57:00.000Z 3554-09-69M25:01:11.000Z BP Sitting (Pre-Dialysis) 159/76 mmHg BP Sitting [...] degF February 28, 2024 In-Center Hemodialysis Treatment 2304-59-33K58:51:00.000Z 3327-34-27W15:55:08.000Z BP Sitting (Pre-Dialysis) 166/86 mmHg BP Sitting [...] degF February 26, 2024 In-Center Hemodialysis Treatment 1850-47-71Q55:53:00.000Z 2562-51-87R01:54:38.000Z BP Sitting (Pre-Dialysis) 177/89 mmHg BP Sitting [...] degF February 24, 2024 In-Center Hemodialysis Treatment 6894-32-21A02:53:00.000Z 7638-60-56Y53:13:00.000Z BP Sitting (Pre-Dialysis) 168/89 mmHg BP Sitting (Post-Dialysis) 157/79 mmHg Concurrent Access: falseAV Fistula Forearm (Left) Arterial BP Standing (Pre-Dialysis) 164/86 mmHg BP Standing (P ost-Dialysis) 16/72 mmHg Sitting Heart Rate Pre-Dialysis 75 BPM Sitting Heart Rate Post-Dialysis 70 BPM Standing Heart Rate Pre-Dialysis 76 BPM Standing Heart Rate Post-Dialysis 73 BPM Temperature Pre-Dialysis 97.5 degF Temperature Post -Dialysis 97.8 degF February 21, 2024 In-Center Hemodialysis Treatment 2934-97-54J01:55:00.000Z 3582-12-74J01:58:15.000Z BP Sitting (Pre-Dialysis) 173/90 mmHg BP Sitting [...] degF February 19, 2024 In-Center Hemodialysis Treatment 5649-05-21A41:53:00.000Z 6431-88-58R72:00:00.000Z BP Sitting (Pre-Dialysis) 156/80 mmHg BP Sitting [...] degF February 17, 2024 In-Center Hemodialysis Treatment 6698-61-91T83:43:00.000Z 2267-27-86E77:54:35.000Z BP Sitting (Pre-Dialysis) 159/84 mmHg BP Sitting (Post-Dialysis) 153/73 mmHg Concurrent Access: falseAV Fistula Forearm (Left) Arterial BP Standing (Pre-Dialysis) 153/83 mmHg BP Standing (P ost-Dialysis) 153/72 mmHg Sitting Heart Rate Pre-Dialysis 76 BPM Sitting Heart Rate Post-Dialysis 69 BPM Standing Heart Rate Pre-Dialysis 76 BPM Standing Heart Rate Post-Dialysis 70 BPM Temperature Pre-Dialysis 97.4 degF February 14, 2024 In-Center Hemodialysis Treatment 9614-83-57U52:51:00.000Z 8743-49-83C13:53:33.000Z BP Sitting (Pre-Dialysis) 167/82 mmHg BP Sitting [...] degF February 12, 2024 In-Center Hemodialysis Treatment 1674-93-89F43:03:33.000Z 1301-71-51S77:07:33.000Z BP Sitting (Pre-Dialysis) 159/84 mmHg BP Sitting [...] degF February 10, 2024 In-Center Hemodialysis Treatment 6649-32-65H93:53:00.000Z 1392-76-84I95:56:33.000Z BP Sitting (Pre-Dialysis) 173/88 mmHg BP Sitting [...] degF February 07, 2024 In-Center Hemodialysis Treatment 7819-43-24N47:00:00.000Z 6509-49-76V07:01:21.000Z BP Sitting (Pre-Dialysis) 165/81 mmHg BP Sitting [...] degF February 05, 2024 In-Center Hemodialysis Treatment 0284-94-72Y96:57:00.000Z 2002-89-39H29:58:20.000Z BP Sitting (Pre-Dialysis) 167/88 mmHg BP Sitting [...] degF February 03, 2024 In-Center Hemodialysis Treatment 4059-36-05Z37:54:00.000Z 6352-12-60J26:56:20.000Z BP Sitting (Pre-Dialysis) 175/88 mmHg BP Sitting [...] degF January 31, 2024 In-Center Hemodialysis Treatment 3859-28-82I21:51:00.000Z 6307-35-65S07:55:52.000Z BP Sitting (Pre-Dialysis) 177/85 mmHg BP Sitting [...] degF January 29, 2024 In-Center Hemodialysis Treatment 0119-66-27M63:57:00.000Z 4162-93-32Y25:05:52.000Z BP Sitting (Pre-Dialysis) 172/85 mmHg BP Sitting [...] degF January 27, 2024 In-Center Hemodialysis Treatment 7339-45-39H47:53:00.000Z 2972-17-16O95:52:52.000Z BP Sitting (Pre-Dialysis) 174/87 mmHg BP Sitting [...] degF January 24, 2024 In-Center Hemodialysis Treatment 8147-78-47T28:53:00.000Z 5501-78-81B84:56:08.000Z BP Sitting (Pre-Dialysis) 169/89 mmHg BP Sitting [...] degF January 22, 2024 In-Center Hemodialysis Treatment 2565-67-60U83:51:00.000Z 1904-88-25Y62:57:29.000Z BP Sitting (Pre-Dialysis) 163/84 mmHg BP Sitting [...] degF January 20, 2024 In-Center Hemodialysis Treatment 3420-10-10Z70:59:00.000Z 8327-59-34A11:01:29.000Z BP Sitting (Pre-Dialysis) 158/81 mmHg BP Sitting [...] degF January 17, 2024 In-Center Hemodialysis Treatment 2484-99-86C49:52:00.000Z 9047-41-73H08:56:54.000Z BP Sitting (Pre-Dialysis) 155/82 mmHg BP Sitting [...] degF January 15, 2024 In-Center Hemodialysis Treatment 1340-61-49O57:53:00.000Z 8353-35-50V62:56:54.000Z BP Sitting (Pre-Dialysis) 148/78 mmHg BP Sitting [...] degF January 13, 2024 In-Center Hemodialysis Treatment 1012-06-53D57:59:00.000Z 7147-11-86E37:01:54.000Z BP Sitting (Pre-Dialysis) 176/85 mmHg BP Sitting [...] degF January 10, 2024 In-Center Hemodialysis Treatment 7133-61-45W65:00:00.000Z 8421-14-28K65:02:07.000Z BP Sitting (Pre-Dialysis) 164/85 mmHg BP Sitting [...] degF January 08, 2024 In-Center Hemodialysis Treatment 1398-60-30S49:50:00.000Z 8355-75-29R48:54:07.000Z BP Sitting (Pre-Dialysis) 172/87 mmHg BP Sitting [...] degF January 06, 2024 In-Center Hemodialysis Treatment 9141-73-17N82:47:00.000Z 4435-08-48L93:49:07.000Z BP Sitting (Pre-Dialysis) 161/82 mmHg BP Sitting (Post-Dialysis) 153/79 mmHg Concurrent Access: falseAV Fistula Forearm (Left) Arterial BP Standing (Pre-Dialysis) 164/84 mmHg BP Standing (P ost-Dialysis) 163/75 mmHg Sitting Heart Rate Pre-Dialysis 74 BPM Sitting Heart Rate Post-Dialysis 72 BPM Standing Heart Rate Pre-Dialysis 73 BPM Standing Heart Rate Post-Dialysis 69 BPM Temperature Pre-Dialysis 97.6 degF January 03, 2024 In-Center Hemodialysis Treatment 5291-83-15W37:53:00.000Z 8563-72-79V94:58:44.000Z BP Sitting (Pre-Dialysis) 174/85 mmHg BP Sitting [...] degF January 01, 2024 In-Center Hemodialysis Treatment 5400-33-97Z47:53:00.000Z 8189-04-21P50:57:44.000Z BP Sitting (Pre-Dialysis) 169/89 mmHg BP Sitting [...] degF December 30, 2023 In-Center Hemodialysis Treatment 2391-28-88L61:02:00.000Z 1647-06-02B63:04:44.000Z BP Sitting (Pre-Dialysis) 167/85 mmHg BP Sitting [...] degF December 27, 2023 In-Center Hemodialysis Treatment 2740-56-21A07:55:00.000Z 3902-68-33L79:02:07.000Z BP Sitting (Pre-Dialysis) 174/88 mmHg BP Sitting [...] degF December 25, 2023 In-Center Hemodialysis Treatment 1189-99-76H40:53:00.000Z 2963-19-78L56:59:07.000Z BP Sitting (Pre-Dialysis) 184/92 mmHg BP Sitting [...] degF December 23, 2023 In-Center Hemodialysis Treatment 1353-51-38M16:55:00.000Z 3560-71-69L09:51:07.000Z BP Sitting (Pre-Dialysis) 167/96 mmHg BP Sitting [...] degF December 20, 2023 In-Center Hemodialysis Treatment 7099-28-90M18:52:00.000Z 7877-28-45Z76:54:16.000Z BP Sitting (Pre-Dialysis) 171/87 mmHg BP Sitting [...] degF December 18, 2023 In-Center Hemodialysis Treatment 6892-01-19M57:56:00.000Z 8304-97-69F01:58:16.000Z BP Sitting (Pre-Dialysis) 169/91 mmHg BP Sitting (Post-Dialysis) 176/84 mmHg Concurrent Access: falseAV Fistula Forearm (Left) Arterial BP Standing (Pre-Dialysis) 178/97 mmHg Sitting Heart Rate Post-Dialysis 68 BPM Sitting Heart Rate Pre-Dialysis 73 BPM Temperatu re Post-Dialysis 98 degF Standing Heart Rate Pre-Dialysis 74 BPM Temperature Pre-Dialysis 98 degF December 17, 2023 In-Center Hemodialysis Treatment 5595-82-82P70:35:00.000Z 3299-94-21R12:34:45.000Z BP Sitting (Pre-Dialysis) 172/88 mmHg BP Sitting [...] 2023 In-Center Hemodialysis Treatment 20 24 -0 - 24 T1 0: 54 :0 0. 00 0Z 20 24 -0 - 24 T1 5: 00 :1 1. 00 [...] degF December 11, 2023 In-Center Hemodialysis Treatment 0686-29-69P65:53:00.000Z 3530-38-60P72:57:21.000Z BP Sitting (Pre-Dialysis) 173/88 mmHg BP Sitting [...] degF December 09, 2023 In-Center Hemodialysis Treatment 4640-19-40Z70:56:00.000Z 2661-89-88K78:02:09.000Z BP Sitting (Pre-Dialysis) 161/84 mmHg BP Sitting [...] degF December 06, 2023 In-Center Hemodialysis Treatment 0455-68-02E37:55:00.000Z 2799-56-67C97:59:09.000Z BP Sitting (Pre-Dialysis) 180/94 mmHg BP Sitting [...] degF December 04, 2023 In-Center Hemodialysis Treatment 2163-52-70D74:56:53.000Z 0505-68-22S72:58:54.000Z BP Sitting (Pre-Dialysis) 177/90 mmHg BP Sitting [...] 03, 2023 Additional Day Of Dialysis Treatment 5498-29-20Y82:26:45.000Z 8438-13-52E39:27:45.000Z BP Sitting (Pre-Dialysis) 160/88 mmHg BP Sitting [...] degF December 02, 2023 In-Center Hemodialysis Treatment 6653-86-00P98:57:44.000Z 0352-78-80X60:58:44.000Z BP Sitting (Pre-Dialysis) 171/92 mmHg BP Sitting [...] degF November 29, 2023 In-Center Hemodialysis Treatment 8528-51-77B09:53:00.000Z 4777-06-90T39:56:56.000Z BP Sitting (Pre-Dialysis) 165/88 mmHg BP Sitting [...] degF November 27, 2023 In-Center Hemodialysis Treatment 4880-67-27M21:55:00.000Z 9451-70-70J27:02:55.000Z BP Sitting (Pre-Dialysis) 163/94 mmHg BP Sitting (Post-Dialysis) 150/78 mmHg Concurrent Access: falseAV Fistula Forearm (Left) Arterial BP Standing (Pre-Dialysis) 163/80 mmHg Sitti ng Heart Rate Post-Dialysis 78 BPM Sitting Heart Rate Pre-Dialysis 77 BPM Temperatu re Post-Dialysis 97.8 degF Standing Heart Rate Pre-Dialysis 78 BPM Temperature Pre-Dialysis 97.6 degF November 25, 2023 In-Center Hemodialysis Treatment 1938-18-45V53:52:00.000Z 3144-01-77O73:57:56.000Z BP Sitting (Pre-Dialysis) 178/90 mmHg BP Sitting [...] degF November 22, 2023 In-Center Hemodialysis Treatment 5113-57-61S47:51:00.000Z 9730-44-99B39:59:37.000Z BP Sitting (Pre-Dialysis) 183/99 mmHg BP Sitting [...] degF November 20, 2023 In-Center Hemodialysis Treatment 7102-24-32G42:57:00.000Z 9204-53-61E01:05:37.000Z BP Sitting (Pre-Dialysis) 175/90 mmHg BP Sitting [...] degF November 19, 2023 In-Center Hemodialysis Treatment 7701-21-51R68:40:00.000Z 3881-96-57A81:11:22.000Z BP Sitting (Pre-Dialysis) 174/90 mmHg BP Sitting (Post-Dialysis) 188/102 mmHg Concurrent Access: falseAV Fistula Forearm (Left) Arterial BP Standing (Pre-Dialysis) 183/99 mmHg BP Standing (P ost-Dialysis) 192/98 mmHg Sitting Heart Rate Pre-Dialysis 80 BPM Sitting Heart Rate Post-Dialysis 74 BPM Standing Heart Rate Pre-Dialysis 79 BPM Standing Heart Rate Post-Dialysis 75 BPM Temperature Pre-Dialysis 97.5 degF November 15, 2023 In-Center Hemodialysis Treatment 6275-55-06I71:55:00.000Z 0430-86-73M75:58:10.000Z BP Sitting (Pre-Dialysis) 178/95 mmHg BP Sitting [...] degF November 13, 2023 In-Center Hemodialysis Treatment 3404-43-75U25:58:28.000Z 8614-28-36Y78:01:28.000Z BP Sitting (Pre-Dialysis) 183/91 mmHg BP Sitting [...] degF November 11, 2023 In-Center Hemodialysis Treatment 2733-10-19S50:56:00.000Z 4899-90-28W34:02:10.000Z BP Sitting (Pre-Dialysis) 184/93 mmHg BP Sitting [...] degF November 08, 2023 In-Center Hemodialysis Treatment 9085-49-83O98:57:28.000Z 9524-37-98T25:56:28.000Z BP Sitting (Pre-Dialysis) 180/95 mmHg BP Sitting [...] degF November 06, 2023 In-Center Hemodialysis Treatment 3306-66-37T01:56:00.000Z 6491-14-77Z10:00:27.000Z BP Sitting (Pre-Dialysis) 176/91 mmHg BP Sitting (Post-Dialysis) 169/86 mmHg Concurrent Access: falseAV Fistula Forearm (Left) Arterial BP Standing (Pre-Dialysis) 179/91 mmHg BP Standing (P ost-Dialysis) 176/85 mmHg Sitting Heart Rate Pre-Dialysis 81 BPM Sitting Heart Rate Post-Dialysis 69 BPM Standing Heart Rate Pre-Dialysis 78 BPM Standing Heart Rate Post-Dialysis 69 BPM Temperature Pre-Dialysis 97.6 degF November 04, 2023 In-Center Hemodialysis Treatment 4161-30-39C68:54:00.000Z 5833-40-04Z87:56:27.000Z BP Sitting (Pre-Dialysis) 176/89 mmHg BP Sitting (Post-Dialysis) 183/83 mmHg Concurrent Access: falseAV Fistula Forearm (Left) Arterial BP Standing (Pre-Dialysis) 176/89 mmHg BP Standing (P ost-Dialysis) 180/83 mmHg Sitting Heart Rate Pre-Dialysis 78 BPM Sitting Heart Rate Post-Dialysis 70 BPM Standing Heart Rate Pre-Dialysis 78 BPM Standing Heart Rate Post-Dialysis 70 BPM Temperature Pre-Dialysis 97.6 degF Temperature Post -Dialysis 97.6 degF November 01, 2023 In-Center Hemodialysis Treatment 7543-13-24A17:53:00.000Z 9002-35-21X08:57:33.000Z BP Sitting (Pre-Dialysis) 172/93 mmHg BP Sitting (Post-Dialysis) 169/84 mmHg Concurrent Access: falseAV Fistula Forearm (Left) Arterial BP Standing (Pre-Dialysis) 171/87 mmHg Sitting Heart Rate Post-Dialysis 72 BPM Sitting Heart Rate Pre-Dialysis 79 BPM Temperatu re Post-Dialysis 97 degF Standing Heart Rate Pre-Dialysis 78 BPM Temperature Pre-Dialysis 97.4 degF October 30, 2023 In-Center Hemodialysis Treatment 9216-42-88C66:55:00.000Z 2997-36-72J65:55:40.000Z BP Sitting (Pre-Dialysis) 174/90 mmHg BP Sitting [...] degF October 28, 2023 In-Center Hemodialysis Treatment 3729-96-77P08:55:00.000Z 9680-36-18H30:59:40.000Z BP Sitting (Pre-Dialysis) 182/98 mmHg BP Sitting [...] degF October 25, 2023 In-Center Hemodialysis Treatment 6299-01-43E77:54:00.000Z 0501-58-90I11:58:32.000Z BP Sitting (Pre-Dialysis) 177/93 mmHg BP Sitting [...] degF October 23, 2023 In-Center Hemodialysis Treatment 5453-19-49R32:07:32.000Z 3452-34-27S00:00:32.000Z BP Sitting (Pre-Dialysis) 178/92 mmHg BP Sitting [...] degF October 21, 2023 In-Center Hemodialysis Treatment 4083-64-26X43:02:00.000Z 7508-69-94I75:08:32.000Z BP Sitting (Pre-Dialysis) 176/95 mmHg BP Sitting [...] degF October 18, 2023 In-Center Hemodialysis Treatment 2034-18-03U54:59:28.000Z 8099-09-59Q26:01:28.000Z BP Sitting (Pre-Dialysis) 180/98 mmHg BP Sitting [...] degF October 16, 2023 In-Center Hemodialysis Treatment 7052-33-40B58:57:00.000Z 6851-90-57S89:04:28.000Z BP Sitting (Pre-Dialysis) 182/95 mmHg BP Sitting [...] degF October 14, 2023 In-Center Hemodialysis Treatment 6921-73-18A35:55:28.000Z 1573-41-45S69:56:28.000Z BP Sitting (Pre-Dialysis) 161/84 mmHg BP Sitting [...] degF October 11, 2023 In-Center Hemodialysis Treatment 3874-34-07P77:53:50.000Z 9946-10-23R61:56:51.000Z BP Sitting (Pre-Dialysis) 181/84 mmHg BP Sitting [...] degF October 09, 2023 In-Center Hemodialysis Treatment 2804-96-40Q15:56:50.000Z 3059-30-81J93:57:50.000Z BP Sitting (Pre-Dialysis) 181/90 mmHg BP Sitting (Post-Dialysis) 161/79 mmHg Concurrent Access: falseAV Fistula Forearm (Left) Arterial BP Standing (Pre-Dialysis) 174/87 mmHg BP Standing (P ost-Dialysis) 158/79 mmHg Sitting Heart Rate Pre-Dialysis 77 BPM Sitting Heart Rate Post-Dialysis 72 BPM Standing Heart Rate Pre-Dialysis 80 BPM Standing Heart Rate Post-Dialysis 74 BPM Temperature Pre-Dialysis 97.3 degF October 07, 2023 In-Center Hemodialysis Treatment 8460-75-81Q42:56:00.000Z 8013-30-38Z59:59:50.000Z BP Sitting (Pre-Dialysis) 160/85 mmHg BP Sitting [...] degF October 04, 2023 In-Center Hemodialysis Treatment 7898-62-39I04:56:00.000Z 0381-94-87S24:06:03.000Z BP Sitting (Pre-Dialysis) 169/89 mmHg BP Sitting [...] degF October 02, 2023 In-Center Hemodialysis Treatment 0912-99-47I14:01:41.000Z 9321-93-40O48:05:42.000Z BP Sitting (Pre-Dialysis) 178/95 mmHg BP Sitting (Post-Dialysis) 163/80 mmHg Concurrent Access: falseAV Fistula Forearm (Left) Arterial BP Standing (Pre-Dialysis) 196/100 mmHg Sitti ng Heart Rate Post-Dialysis 72 BPM Sitting Heart Rate Pre-Dialysis 80 BPM Temperatu re Post-Dialysis 97.4 degF Standing Heart Rate Pre-Dialysis 85 BPM Temperature Pre-Dialysis 97.6 degF September 30, 2023 In-Center Hemodialysis Treatment 3422-46-42I30:00:00.000Z 8720-97-91Q79:02:48.000Z BP Sitting (Pre-Dialysis) 174/88 mmHg BP Sitting [...] degF September 27, 2023 In-Center Hemodialysis Treatment 6390-95-73F62:56:00.000Z 6634-01-00X04:55:52.000Z BP Sitting (Pre-Dialysis) 168/88 mmHg BP Sitting [...] degF September 25, 2023 In-Center Hemodialysis Treatment 5853-71-45Z72:58:53.000Z 3173-67-52N00:59:53.000Z BP Sitting (Pre-Dialysis) 167/83 mmHg BP Sitting [...] degF September 23, 2023 In-Center Hemodialysis Treatment 9691-30-36M69:57:00.000Z 6637-90-08Y69:59:53.000Z BP Sitting (Pre-Dialysis) 171/92 mmHg BP Sitting [...] degF September 20, 2023 In-Center Hemodialysis Treatment 8108-86-14X36:53:00.000Z 2158-65-53M28:55:10.000Z BP Sitting (Pre-Dialysis) 153/86 mmHg BP Sitting [...] degF September 18, 2023 In-Center Hemodialysis Treatment 3940-37-36Y25:59:00.000Z 8262-58-38D81:03:10.000Z BP Sitting (Pre-Dialysis) 166/81 mmHg BP Sitting [...] degF September 16, 2023 In-Center Hemodialysis Treatment 6388-31-77V23:59:09.000Z 9470-82-71S44:59:10.000Z BP Sitting (Pre-Dialysis) 138/88 mmHg BP Sitting [...] degF September 13, 2023 In-Center Hemodialysis Treatment 3466-92-75R82:49:39.000Z 7693-89-66H47:52:40.000Z BP Sitting (Pre-Dialysis) 159/85 mmHg BP Sitting [...] degF September 11, 2023 In-Center Hemodialysis Treatment 2403-98-70S19:38:00.000Z 6814-55-60N89:39:40.000Z BP Sitting (Pre-Dialysis) 175/84 mmHg BP Sitting [...] degF September 09, 2023 In-Center Hemodialysis Treatment 7621-06-26A57:39:14.000Z 8028-84-95Z53:40:15.000Z BP Sitting (Pre-Dialysis) 156/81 mmHg BP Sitting (Post-Dialysis) 158/74 mmHg Concurrent Access: falseAV Fistula Forearm (Left) Arterial BP Standing (Pre-Dialysis) 151/75 mmHg BP Standing (P ost-Dialysis) 155/71 mmHg Sitting Heart Rate Pre-Dialysis 79 BPM Sitting Heart Rate Post-Dialysis 70 BPM Standing Heart Rate Pre-Dialysis 79 BPM Standing Heart Rate Post-Dialysis 78 BPM Temperature Pre-Dialysis 97.6 degF Temperature Post -Dialysis 97.6 degF September 06, 2023 In-Center Hemodialysis Treatment 4982-28-42F72:54:47.000Z 1916-24-17C30:54:48.000Z BP Sitting (Pre-Dialysis) 167/84 mmHg BP Sitting [...] degF September 04, 2023 In-Center Hemodialysis Treatment 7915-24-08D06:58:00.000Z 6439-04-42A27:03:35.000Z BP Sitting (Pre-Dialysis) 176/88 mmHg BP Sitting [...] degF September 02, 2023 In-Center Hemodialysis Treatment 8925-89-70Y81:51:00.000Z 1543-68-62G94:55:21.000Z BP Sitting (Pre-Dialysis) 156/78 mmHg BP Sitting [...] degF August 30, 2023 In-Center Hemodialysis Treatment 4128-12-81U62:50:28.000Z 4126-03-95Q43:55:28.000Z BP Sitting (Pre-Dialysis) 151/77 mmHg BP Sitting (Post-Dialysis) 159/71 mmHg Concurrent Access: falseAV Fistula Forearm (Left) Arterial BP Standing (Pre-Dialysis) 147/73 mmHg BP Standing (P ost-Dialysis) 158/71 mmHg Sitting Heart Rate Pre-Dialysis 81 BPM Sitting Heart Rate Post-Dialysis 70 BPM Standing Heart Rate Pre-Dialysis 82 BPM Standing Heart Rate Post-Dialysis 76 BPM Temperature Pre-Dialysis 97.6 degF August 28, 2023 In-Center Hemodialysis Treatment 9020-98-09I11:51:00.000Z 3885-99-42B02:52:29.000Z BP Sitting (Pre-Dialysis) 158/80 mmHg BP Sitting [...] degF August 26, 2023 In-Center Hemodialysis Treatment 5785-71-13F79:04:00.000Z 3215-41-97X97:08:29.000Z BP Sitting (Pre-Dialysis) 164/82 mmHg BP Sitting [...] degF August 23, 2023 In-Center Hemodialysis Treatment 4661-71-48E41:55:42.000Z 6208-46-27T21:57:42.000Z BP Sitting (Pre-Dialysis) 160/80 mmHg BP Sitting (Post-Dialysis) 155/75 mmHg Concurrent Access: falseAV Fistula Forearm (Left) Arterial BP Standing (Pre-Dialysis) 156/77 mmHg BP Standing (P ost-Dialysis) 149/72 mmHg Sitting Heart Rate Pre-Dialysis 79 BPM Sitting Heart Rate Post-Dialysis 70 BPM Standing Heart Rate Pre-Dialysis 79 BPM Standing Heart Rate Post-Dialysis 80 BPM Temperature Pre-Dialysis 97.6 degF August 21, 2023 In-Center Hemodialysis Treatment [id number]:56:00.000Z 8428-71-07Y75:58:15.000Z BP Sitting (Pre-Dialysis) 163/80 mmHg BP Sitting (Post-Dialysis) 132/70 mmHg Concurrent Access: falseAV Fistula Forearm (Left) Arterial BP Standing (Pre-Dialysis) 159/73 mmHg BP Standing (P ost-Dialysis) 124/61 mmHg Sitting Heart Rate Pre-Dialysis 79 BPM Sitting Heart Rate Post-Dialysis 75 BPM Standing Heart Rate Pre-Dialysis 80 BPM Standing Heart Rate Post-Dialysis 77 BPM Temperature Pre-Dialysis 97.8 degF Temperature Post -Dialysis 97.7 degF August 20, 2023 In-Center Hemodialysis Treatment [id number]:54:00.000Z 3670-17-37M52:07:59.000Z BP Sitting (Pre-Dialysis) 163/77 mmHg BP Sitting [...] degF August 16, 2023 In-Center Hemodialysis Treatment [id number]:59:00.000Z 0927-06-29M83:01:19.000Z BP Sitting (Pre-Dialysis) 163/82 mmHg BP Sitting [...] degF August 14, 2023 In-Center Hemodialysis Treatment 0717-28-61U92:02:00.000Z [id number]:03:18.000Z BP Sitting (Pre-Dialysis) 165/84 mmHg BP Sitting [...] degF August 12, 2023 In-Center Hemodialysis Treatment 9790-98-19Q84:12:09.000Z 6596-06-64J81:09:09.000Z BP Sitting (Pre-Dialysis) 160/81 mmHg BP Sitting [...] degF August 09, 2023 In-Center Hemodialysis Treatment 2837-27-30U72:52:00.000Z 7061-34-56X74:56:07.000Z BP Sitting (Pre-Dialysis) 160/76 mmHg BP Sitting [...] degF August 07, 2023 In-Center Hemodialysis Treatment 0860-76-88A31:58:09.000Z 2547-73-87F59:59:10.000Z BP Sitting (Pre-Dialysis) 171/81 mmHg BP Sitting [...] degF August 05, 2023 In-Center Hemodialysis Treatment 3859-67-84M19:00:00.000Z 1965-98-44T34:03:10.000Z BP Sitting (Pre-Dialysis) 158/78 mmHg BP Sitting [...] degF August 02, 2023 In-Center Hemodialysis Treatment 6127-51-01G92:56:00.000Z 5779-68-23A61:57:10.000Z BP Sitting (Pre-Dialysis) 158/80 mmHg BP Sitting [...] degF July 31, 2023 In-Center Hemodialysis Treatment 9067-71-88F52:58:00.000Z 9863-87-26Q07:01:10.000Z BP Sitting (Pre-Dialysis) 164/84 mmHg BP Sitting [...] degF July 29, 2023 In-Center Hemodialysis Treatment 2086-63-91A78:55:00.000Z 0411-47-41N76:57:10.000Z BP Sitting (Pre-Dialysis) 156/83 mmHg BP Sitting [...] degF July 26, 2023 In-Center Hemodialysis Treatment 4736-10-62O80:00:11.000Z 5046-87-38X43:05:11.000Z BP Sitting (Pre-Dialysis) 153/75 mmHg BP Sitting (Post-Dialysis) 153/69 mmHg Concurrent Access: falseAV Fistula Forearm (Left) Arterial Sitting Heart Rate Pre-Dialysis 81 BPM BP Standi ng (Post-Dialysis) 153/69 mmHg Temperature Pre-Dialysis 97 degF Sitting Heart Ra te Post-Dialysis 76 BPM Standing Heart Rate Post-Sandra lysis 77 BPM Temperature Post-Dialysis 97 degF July 24, 2023 In-Center Hemodialysis Treatment 6803-60-96T83:08:36.000Z 5694-74-11A20:31:36.000Z BP Sitting (Pre-Dialysis) 174/91 mmHg BP Sitting (Post-Dialysis) 147/67 mmHg Concurrent Access: falseAV Fistula Forearm (Left) Arterial BP Standing (Pre-Dialysis) 171/84 mmHg Sitting Heart Rate Post-Dialysis 78 BPM Sitting Heart Rate Pre-Dialysis 80 BPM Temperatu re Post-Dialysis 97 degF Standing Heart Rate Pre-Dialysis 80 BPM Temperature Pre-Dialysis 97.6 degF July 21, 2023 In-Center Hemodialysis Treatment 9239-32-13O04:55:00.000Z 1556-01-17W05:59:36.000Z BP Sitting (Pre-Dialysis) 163/84 mmHg BP Sitting [...] degF July 19, 2023 In-Center Hemodialysis Treatment 0480-15-75C28:57:27.000Z 4218-33-33M21:57:27.000Z BP Sitting (Pre-Dialysis) 168/85 mmHg BP Sitting (Post-Dialysis) 158/70 mmHg Concurrent Access: falseAV Fistula Forearm (Left) Arterial BP Standing (Pre-Dialysis) 157/79 mmHg Sitti ng Heart Rate Post-Dialysis 69 BPM Sitting Heart Rate Pre-Dialysis 75 BPM Temperatu re Post-Dialysis 97.9 degF Standing Heart Rate Pre-Dialysis 79 BPM Temperature Pre-Dialysis 97.6 degF July 17, 2023 In-Center Hemodialysis Treatment 6482-79-40P56:58:00.000Z 9052-37-93X53:00:27.000Z BP Sitting (Pre-Dialysis) 167/86 mmHg BP Sitting [...] degF July 14, 2023 In-Center Hemodialysis Treatment 1901-25-64X20:29:00.000Z 3257-49-40X00:35:14.000Z BP Sitting (Pre-Dialysis) 161/84 mmHg BP Sitting [...] degF July 12, 2023 In-Center Hemodialysis Treatment 4912-80-88P14:55:12.000Z 2343-16-17P17:54:12.000Z BP Sitting (Pre-Dialysis) 175/85 mmHg BP Sitting (Post-Dialysis) 164/75 mmHg Concurrent Access: falseAV Fistula Forearm (Left) Arterial BP Standing (Pre-Dialysis) 177/88 mmHg BP Standing (P ost-Dialysis) 163/77 mmHg Sitting Heart Rate Pre-Dialysis 75 BPM Sitting Heart Rate Post-Dialysis 73 BPM Standing Heart Rate Pre-Dialysis 76 BPM Standing Heart Rate Post-Dialysis 74 BPM Temperature Pre-Dialysis 97.6 degF July 08, 2023 In-Center Hemodialysis Treatment 2549-02-26N19:53:12.000Z 3933-40-98I14:01:12.000Z BP Sitting (Pre-Dialysis) 175/87 mmHg BP Sitting [...] degF July 05, 2023 In-Center Hemodialysis Treatment 6816-61-30G25:00:00.000Z 0057-85-70K10:59:43.000Z BP Sitting (Pre-Dialysis) 182/87 mmHg BP Sitting [...] degF July 03, 2023 In-Center Hemodialysis Treatment 8467-44-41O76:47:43.000Z 7065-54-39F35:01:43.000Z BP Sitting (Pre-Dialysis) 174/88 mmHg BP Sitting [...] degF July 01, 2023 In-Center Hemodialysis Treatment 5960-82-96S23:59:00.000Z 2551-51-78B29:01:43.000Z BP Sitting (Pre-Dialysis) 164/86 mmHg BP Sitting [...] degF June 28, 2023 In-Center Hemodialysis Treatment 8012-86-77D53:54:00.000Z 8268-82-84W11:54:23.000Z BP Sitting (Pre-Dialysis) 168/84 mmHg BP Sitting [...] degF June 26, 2023 In-Center Hemodialysis Treatment 8430-64-33B40:54:00.000Z 3001-25-55P89:56:23.000Z BP Sitting (Pre-Dialysis) 174/81 mmHg BP Sitting [...] 25, 2023 Additional Day Of Dialysis Treatment 4412-66-64V61:36:00.000Z 0840-89-44F73:25:30.000Z BP Sitting (Pre-Dialysis) 177/84 mmHg BP Sitting (Post-Dialysis) 159/79 mmHg Concurrent Access: falseAV Fistula Forearm (Left) Arterial Sitting Heart Rate Pre-Dialysis 78 BPM Sitting H eart Rate Post-Dialysis 72 BPM Temperature Pre-Dialysis 97.6 degF Temperature Post -Dialysis 97.6 degF June 24, 2023 In-Center Hemodialysis Treatment 7569-06-27R39:00:23.000Z 4405-23-94L19:01:23.000Z BP Sitting (Pre-Dialysis) 178/87 mmHg BP Sitting (Post-Dialysis) 182/76 mmHg Concurrent Access: falseAV Fistula Forearm (Left) Arterial BP Standing (Pre-Dialysis) 173/83 mmHg BP Standing (P ost-Dialysis) 182/76 mmHg Sitting Heart Rate Pre-Dialysis 81 BPM Sitting Heart Rate Post-Dialysis 74 BPM Standing Heart Rate Pre-Dialysis 83 BPM Standing Heart Rate Post-Dialysis 74 BPM Temperature Pre-Dialysis 97.6 degF Temperature Post -Dialysis 97.9 degF June 21, 2023 In-Center Hemodialysis Treatment 6559-57-86L81:58:16.000Z 4387-85-32N10:58:17.000Z BP Sitting (Pre-Dialysis) 169/86 mmHg BP Sitting [...] degF June 19, 2023 In-Center Hemodialysis Treatment 3735-36-84J17:54:00.000Z 5040-55-18F87:57:11.000Z BP Sitting (Pre-Dialysis) 169/85 mmHg BP Sitting [...] degF June 17, 2023 In-Center Hemodialysis Treatment 1605-72-02Z33:52:00.000Z 7927-68-72O00:54:17.000Z BP Sitting (Pre-Dialysis) 166/87 mmHg BP Sitting [...] degF June 14, 2023 In-Center Hemodialysis Treatment 3624-93-98Q73:58:00.000Z 7024-18-26Y40:59:46.000Z BP Sitting (Pre-Dialysis) 167/87 mmHg BP Sitting [...] degF June 11, 2023 In-Center Hemodialysis Treatment 5071-86-82N89:53:00.000Z 3936-71-37U95:24:17.000Z BP Sitting (Pre-Dialysis) 164/85 mmHg BP Sitting [...] degF June 09, 2023 In-Center Hemodialysis Treatment 3792-98-50P87:57:00.000Z 1020-05-34F46:00:17.000Z BP Sitting (Pre-Dialysis) 167/85 mmHg BP Sitting [...] degF June 07, 2023 In-Center Hemodialysis Treatment 7918-02-61M43:51:22.000Z 3218-59-34Q67:53:22.000Z BP Sitting (Pre-Dialysis) 163/87 mmHg BP Sitting [...] degF June 05, 2023 In-Center Hemodialysis Treatment 5617-91-11L93:56:07.000Z 3773-95-24T90:12:00.000Z BP Sitting (Pre-Dialysis) 184/89 mmHg BP Sitting (Post-Dialysis) 169/81 mmHg Concurrent Access: falseAV Fistula Forearm (Left) Arterial BP Standing (Pre-Dialysis) 176/82 mmHg Sitting Heart Rate Post-Dialysis 71 BPM Sitting Heart Rate Pre-Dialysis 76 BPM Temperatu re Post-Dialysis 97 degF Standing Heart Rate Pre-Dialysis 76 BPM Temperature Pre-Dialysis 96.7 degF June 03, 2023 In-Center Hemodialysis Treatment 3495-98-37X82:51:00.000Z 5204-18-04J63:47:26.000Z BP Sitting (Pre-Dialysis) 156/76 mmHg BP Sitting [...] degF May 31, 2023 In-Center Hemodialysis Treatment 0164-35-51V39:58:51.000Z 5433-12-84Z21:01:52.000Z BP Sitting (Pre-Dialysis) 158/83 mmHg BP Sitting [...] degF May 29, 2023 In-Center Hemodialysis Treatment 6625-13-96H01:56:51.000Z 0009-61-32H92:59:52.000Z BP Sitting (Pre-Dialysis) 153/79 mmHg BP Sitting [...] degF May 27, 2023 In-Center Hemodialysis Treatment 5360-44-23S07:55:00.000Z 3180-48-72B13:11:52.000Z BP Sitting (Pre-Dialysis) 173/88 mmHg BP Sitting [...] degF May 24, 2023 In-Center Hemodialysis Treatment 4837-39-15W33:51:00.000Z 5847-63-63Y75:52:58.000Z BP Sitting (Pre-Dialysis) 160/84 mmHg BP Sitting [...] degF May 22, 2023 In-Center Hemodialysis Treatment 4264-02-91Y09:59:00.000Z 2565-36-47E24:03:38.000Z BP Sitting (Pre-Dialysis) 166/83 mmHg BP Sitting (Post-Dialysis) 166/76 mmHg Concurrent Access: falseAV Fistula Forearm (Left) Arterial BP Standing (Pre-Dialysis) 175/87 mmHg Sitti ng Heart Rate Post-Dialysis 76 BPM Sitting Heart Rate Pre-Dialysis 83 BPM Temperatu re Post-Dialysis 97.9 degF Standing Heart Rate Pre-Dialysis 81 BPM Temperature Pre-Dialysis 97.8 degF May 17, 2023 In-Center Hemodialysis Treatment 4047-45-87U65:56:00.000Z 8888-01-76Y65:58:32.000Z BP Sitting (Pre-Dialysis) 174/88 mmHg BP Sitting [...] degF May 15, 2023 In-Center Hemodialysis Treatment 1070-55-57M13:54:00.000Z 2510-05-88G00:55:38.000Z BP Sitting (Pre-Dialysis) 168/88 mmHg BP Sitting [...] degF May 13, 2023 In-Center Hemodialysis Treatment 5149-89-12H58:54:00.000Z 3114-39-29P42:59:32.000Z BP Sitting (Pre-Dialysis) 177/86 mmHg BP Sitting [...] degF May 10, 2023 In-Center Hemodialysis Treatment 9858-49-74I27:53:00.000Z 4504-33-47U30:02:06.000Z BP Sitting (Pre-Dialysis) 181/92 mmHg BP Sitting [...] degF May 08, 2023 In-Center Hemodialysis Treatment 2292-84-62R87:55:00.000Z 5747-51-04D45:04:06.000Z BP Sitting (Pre-Dialysis) 181/90 mmHg BP Sitting [...] degF May 03, 2023 In-Center Hemodialysis Treatment 8770-69-52E72:51:00.000Z 4069-10-30G21:50:29.000Z BP Sitting (Pre-Dialysis) 168/85 mmHg BP Sitting [...] degF May 01, 2023 In-Center Hemodialysis Treatment 3661-78-85P45:54:00.000Z 9894-19-37M96:57:29.000Z BP Sitting (Pre-Dialysis) 176/86 mmHg BP Sitting [...] degF April 29, 2023 In-Center Hemodialysis Treatment 5851-33-22F99:55:00.000Z 6817-16-73B11:00:29.000Z BP Sitting (Pre-Dialysis) 175/88 mmHg BP Sitting (Post-Dialysis) 165/77 mmHg Concurrent Access: falseAV Fistula Forearm (Left) Arterial BP Standing (Pre-Dialysis) 171/81 mmHg Sitting Heart Rate Post-Dialysis 69 BPM Sitting Heart Rate Pre-Dialysis 76 BPM Temperatu re Post-Dialysis 97 degF Standing Heart Rate Pre-Dialysis 78 BPM Temperature Pre-Dialysis 97.6 degF April 26, 2023 In-Center Hemodialysis Treatment 6406-90-49L11:54:44.000Z 4149-07-57I15:58:43.000Z BP Sitting (Pre-Dialysis) 188/94 mmHg BP Sitting [...] degF April 24, 2023 In-Center Hemodialysis Treatment 2526-09-03P75:52:54.000Z 1539-31-46Q73:57:54.000Z BP Sitting (Pre-Dialysis) 173/96 mmHg BP Sitting [...] degF April 22, 2023 In-Center Hemodialysis Treatment 6990-30-34P42:58:54.000Z 1735-69-07Q12:59:54.000Z BP Sitting (Pre-Dialysis) 171/87 mmHg BP Sitting (Post-Dialysis) 158/74 mmHg Concurrent Access: falseAV Fistula Forearm (Left) Arterial BP Standing (Pre-Dialysis) 172/84 mmHg Sitting Heart Rate Post-Dialysis 70 BPM Sitting Heart Rate Pre-Dialysis 78 BPM Temperatu re Post-Dialysis 98 degF Standing Heart Rate Pre-Dialysis 77 BPM Temperature Pre-Dialysis 97.6 degF April 19, 2023 In-Center Hemodialysis Treatment 9638-52-11X94:57:46.000Z 8227-79-27C98:58:46.000Z BP Sitting (Pre-Dialysis) 178/97 mmHg BP Sitting [...] degF April 17, 2023 In-Center Hemodialysis Treatment 4634-35-16L02:06:00.000Z 1839-86-69N50:11:47.000Z BP Sitting (Pre-Dialysis) 174/88 mmHg BP Sitting [...] degF April 15, 2023 In-Center Hemodialysis Treatment 5717-07-14C87:57:00.000Z 8167-85-96Z92:01:44.000Z BP Sitting (Pre-Dialysis) 175/88 mmHg BP Sitting [...] degF April 12, 2023 In-Center Hemodialysis Treatment 6870-28-54O11:57:43.000Z 0983-02-59L93:57:44.000Z BP Sitting (Pre-Dialysis) 175/87 mmHg BP Sitting [...] degF April 10, 2023 In-Center Hemodialysis Treatment 8271-26-87O86:53:00.000Z 9890-39-06P88:54:44.000Z BP Sitting (Pre-Dialysis) 178/88 mmHg BP Sitting (Post-Dialysis) 164/81 mmHg Concurrent Access: falseAV Fistula Forearm (Left) Arterial BP Standing (Pre-Dialysis) 169/83 mmHg BP Standing (P ost-Dialysis) 155/76 mmHg Sitting Heart Rate Pre-Dialysis 76 BPM Sitting Heart Rate Post-Dialysis 64 BPM Standing Heart Rate Pre-Dialysis 77 BPM Standing Heart Rate Post-Dialysis 71 BPM Temperature Pre-Dialysis 97.9 degF April 08, 2023 In-Center Hemodialysis Treatment 0147-91-11S70:57:00.000Z 8960-69-68J73:00:17.000Z BP Sitting (Pre-Dialysis) 177/88 mmHg BP Sitting [...] degF April 05, 2023 In-Center Hemodialysis Treatment 3460-59-85Y19:55:00.000Z 6671-05-61R87:59:59.000Z BP Sitting (Pre-Dialysis) 175/85 mmHg BP Sitting [...] degF April 03, 2023 In-Center Hemodialysis Treatment 5605-27-51A37:57:59.000Z 0749-88-55G08:00:00.000Z BP Sitting (Pre-Dialysis) 169/87 mmHg BP Sitting [...] degF April 01, 2023 In-Center Hemodialysis Treatment 1477-08-37S00:53:00.000Z 5777-05-48A47:55:23.000Z BP Sitting (Pre-Dialysis) 184/94 mmHg BP Sitting (Post-Dialysis) 166/81 mmHg Concurrent Access: falseAV Fistula Forearm (Left) Arterial BP Standing (Pre-Dialysis) 185/94 mmHg BP Standing (P ost-Dialysis) 169/77 mmHg Sitting Heart Rate Pre-Dialysis 74 BPM Sitting Heart Rate Post-Dialysis 66 BPM Standing Heart Rate Pre-Dialysis 79 BPM Standing Heart Rate Post-Dialysis 69 BPM Temperature Pre-Dialysis 97.6 degF Temperature Post -Dialysis 97.6 degF March 29, 2023 In-Center Hemodialysis Treatment 6349-12-44A38:57:11.000Z 9938-93-58O84:01:11.000Z BP Sitting (Pre-Dialysis) 182/89 mmHg BP Sitting [...] degF March 27, 2023 In-Center Hemodialysis Treatment 4135-67-56T35:52:00.000Z 6328-78-90U52:54:47.000Z BP Sitting (Pre-Dialysis) 182/95 mmHg BP Sitting [...] degF March 25, 2023 In-Center Hemodialysis Treatment 5059-38-98E45:54:00.000Z 5102-57-09S43:58:47.000Z BP Sitting (Pre-Dialysis) 179/83 mmHg BP Sitting (Post-Dialysis) 196/80 mmHg Concurrent Access: falseAV Fistula Forearm (Left) Arterial BP Standing (Pre-Dialysis) 179/96 mmHg BP Standing (P ost-Dialysis) 158/77 mmHg Sitting Heart Rate Pre-Dialysis 75 BPM Sitting Heart Rate Post-Dialysis 74 BPM Standing Heart Rate Pre-Dialysis 73 BPM Standing Heart Rate Post-Dialysis 70 BPM Temperature Pre-Dialysis 97.9 degF Temperature Post -Dialysis 97.6 degF March 22, 2023 In-Center Hemodialysis Treatment 0888-39-77Q17:02:00.000Z 4919-15-33A03:06:15.000Z BP Sitting (Pre-Dialysis) 180/98 mmHg BP Sitting [...] degF March 20, 2023 In-Center Hemodialysis Treatment 2244-72-62E16:57:15.000Z 9031-72-25T24:58:16.000Z BP Sitting (Pre-Dialysis) 182/88 mmHg BP Sitting [...] degF March 18, 2023 In-Center Hemodialysis Treatment 7643-11-42F53:52:00.000Z 5800-08-10V04:54:15.000Z BP Sitting (Pre-Dialysis) 180/98 mmHg BP Sitting (Post-Dialysis) 162/77 mmHg Concurrent Access: falseAV Fistula Forearm (Left) Arterial BP Standing (Pre-Dialysis) 186/90 mmHg BP Standing (P ost-Dialysis) 149/69 mmHg Sitting Heart Rate Pre-Dialysis 78 BPM Sitting Heart Rate Post-Dialysis 94 BPM Standing Heart Rate Pre-Dialysis 75 BPM Standing Heart Rate Post-Dialysis 74 BPM Temperature Pre-Dialysis 97.6 degF Temperature Post -Dialysis 97 degF March 15, 2023 In-Center Hemodialysis Treatment 1270-12-23H61:56:00.000Z 2415-94-69L66:00:13.000Z BP Sitting (Pre-Dialysis) 195/91 mmHg BP Sitting [...] degF March 13, 2023 In-Center Hemodialysis Treatment 0808-41-04N75:57:00.000Z 7004-14-38L52:58:13.000Z BP Sitting (Pre-Dialysis) 185/91 mmHg BP Sitting [...] degF March 11, 2023 In-Center Hemodialysis Treatment 5905-06-50R80:59:52.000Z 1182-05-18E21:58:52.000Z BP Sitting (Pre-Dialysis) 179/90 mmHg BP Sitting [...] degF March 08, 2023 In-Center Hemodialysis Treatment 6317-83-88I45:55:11.000Z 9853-53-58Q86:57:12.000Z BP Sitting (Pre-Dialysis) 177/94 mmHg BP Sitting [...] degF March 06, 2023 In-Center Hemodialysis Treatment 9197-70-54R32:37:04.000Z 4520-74-27E89:31:04.000Z BP Sitting (Pre-Dialysis) 187/95 mmHg BP Sitting [...] degF March 04, 2023 In-Center Hemodialysis Treatment 1971-57-00P03:53:16.000Z 1542-67-34W65:53:40.000Z BP Sitting (Pre-Dialysis) 175/91 mmHg BP Sitting (Post-Dialysis) 86/60 mmHg Concurrent Access: falseAV Fistula Forearm (Left) Arterial BP Standing (Pre-Dialysis) 172/84 mmHg Sitting Heart Rate Post-Dialysis 58 BPM Sitting Heart Rate Pre-Dialysis 77 BPM Temperatu re Post-Dialysis 97 degF Standing Heart Rate Pre-Dialysis 75 BPM Temperature Pre-Dialysis 97.8 degF March 01, 2023 In-Center Hemodialysis Treatment 5580-42-14I41:00:00.000Z 3343-33-78P86:04:17.000Z BP Sitting (Pre-Dialysis) 177/86 mmHg BP Sitting (Post-Dialysis) 143/73 mmHg Concurrent Access: falseAV Fistula Forearm (Left) Arterial BP Standing (Pre-Dialysis) 165/87 mmHg Sitti ng Heart Rate Post-Dialysis 70 BPM Sitting Heart Rate Pre-Dialysis 74 BPM Temperatu re Post-Dialysis 98.1 degF Standing Heart Rate Pre-Dialysis 75 BPM Temperature Pre-Dialysis 97.6 degF February 27, 2023 In-Center Hemodialysis Treatment 0325-09-08V39:54:16.000Z 4217-91-76K69:52:17.000Z BP Sitting (Pre-Dialysis) 179/94 mmHg BP Sitting [...] degF February 25, 2023 In-Center Hemodialysis Treatment 5176-85-86M51:02:16.000Z 6191-78-75U24:08:17.000Z BP Sitting (Pre-Dialysis) 172/91 mmHg BP Sitting (Post-Dialysis) 170/82 mmHg Concurrent Access: falseAV Fistula Forearm (Left) Arterial BP Standing (Pre-Dialysis) 165/85 mmHg Sitti ng Heart Rate Post-Dialysis 70 BPM Sitting Heart Rate Pre-Dialysis 72 BPM Temperatu re Post-Dialysis 97.8 degF Standing Heart Rate Pre-Dialysis 73 BPM Temperature Pre-Dialysis 97.6 degF February 22, 2023 In-Center Hemodialysis Treatment 0287-56-50N27:54:00.000Z 6618-46-34Y13:55:29.000Z BP Sitting (Pre-Dialysis) 170/89 mmHg BP Sitting (Post-Dialysis) 154/79 mmHg Concurrent Access: falseAV Fistula Forearm (Left) Arterial BP Standing (Pre-Dialysis) 163/85 mmHg BP Standing (P ost-Dialysis) 161/75 mmHg Sitting Heart Rate Pre-Dialysis 77 BPM Sitting Heart Rate Post-Dialysis 72 BPM Standing Heart Rate Pre-Dialysis 78 BPM Standing Heart Rate Post-Dialysis 73 BPM Temperature Pre-Dialysis 97.9 degF Temperature Post -Dialysis 97.6 degF February 20, 2023 In-Center Hemodialysis Treatment 7555-60-60S06:01:00.000Z 3864-11-81B00:59:29.000Z BP Sitting (Pre-Dialysis) 166/87 mmHg BP Sitting (Post-Dialysis) 151/78 mmHg Concurrent Access: falseAV Fistula Forearm (Left) Arterial BP Standing (Pre-Dialysis) 180/91 mmHg Sitti ng Heart Rate Post-Dialysis 69 BPM Sitting Heart Rate Pre-Dialysis 66 BPM Temperatu re Post-Dialysis 97.9 degF Standing Heart Rate Pre-Dialysis 76 BPM Temperature Pre-Dialysis 97.8 degF February 18, 2023 In-Center Hemodialysis Treatment 9068-92-29O95:00:00.000Z 5401-94-97W97:02:55.000Z BP Sitting (Pre-Dialysis) 180/89 mmHg BP Sitting [...] degF February 15, 2023 In-Center Hemodialysis Treatment 7084-81-71O09:59:00.000Z 2689-97-41V85:00:20.000Z BP Sitting (Pre-Dialysis) 170/84 mmHg BP Sitting [...] degF February 13, 2023 In-Center Hemodialysis Treatment 1081-96-68Z15:00:00.000Z 9476-37-05A12:02:58.000Z BP Sitting (Pre-Dialysis) 174/90 mmHg BP Sitting [...] degF February 11, 2023 In-Center Hemodialysis Treatment 9299-20-36I10:56:31.000Z 7995-46-37D65:58:31.000Z BP Sitting (Pre-Dialysis) 169/93 mmHg BP Sitting [...] degF February 08, 2023 In-Center Hemodialysis Treatment 8970-51-53O78:55:00.000Z 0663-80-06W26:00:30.000Z BP Sitting (Pre-Dialysis) 162/83 mmHg BP Sitting [...] degF February 06, 2023 In-Center Hemodialysis Treatment 4218-93-06D52:58:00.000Z 3580-33-52B87:01:20.000Z BP Sitting (Pre-Dialysis) 178/92 mmHg BP Sitting [...] degF February 04, 2023 In-Center Hemodialysis Treatment 0315-30-88R41:55:19.000Z 0419-40-51A66:52:20.000Z BP Sitting (Pre-Dialysis) 167/87 mmHg BP Sitting (Post-Dialysis) 155/76 mmHg Concurrent Access: falseAV Fistula Forearm (Left) Arterial BP Standing (Pre-Dialysis) 162/82 mmHg BP Standing (P ost-Dialysis) 151/74 mmHg Sitting Heart Rate Pre-Dialysis 71 BPM Sitting Heart Rate Post-Dialysis 65 BPM Standing Heart Rate Pre-Dialysis 71 BPM Standing Heart Rate Post-Dialysis 67 BPM Temperature Pre-Dialysis 97.6 degF February 01, 2023 In-Center Hemodialysis Treatment 6470-30-09X88:54:00.000Z 9298-95-04Q87:56:45.000Z BP Sitting (Pre-Dialysis) 178/89 mmHg BP Sitting [...] degF January 30, 2023 In-Center Hemodialysis Treatment 9948-14-96U03:00:00.000Z 5353-87-24S56:02:45.000Z BP Sitting (Pre-Dialysis) 172/87 mmHg BP Sitting [...] 29, 2023 Additional Day Of Dialysis Treatment 5789-09-71W94:08:00.000Z 6767-74-90R62:38:15.000Z BP Sitting (Pre-Dialysis) 173/85 mmHg BP Sitting (Post-Dialysis) 169/42 mmHg Concurrent Access: falseAV Fistula Forearm (Left) Arterial BP Standing (Pre-Dialysis) 173/85 mmHg Sitting Heart Rate Post-Dialysis 68 BPM Sitting Heart Rate Pre-Dialysis 83 BPM Temperatu re Post-Dialysis 97 degF Standing Heart Rate Pre-Dialysis 83 BPM Temperature Pre-Dialysis 97 degF January 28, 2023 In-Center Hemodialysis Treatment 3063-54-77Y19:56:00.000Z 6036-42-30X51:00:46.000Z BP Sitting (Pre-Dialysis) 170/82 mmHg BP Sitting [...] degF January 25, 2023 In-Center Hemodialysis Treatment 9953-06-80V52:52:00.000Z 0147-52-48O60:55:17.000Z BP Sitting (Pre-Dialysis) 179/91 mmHg BP Sitting [...] degF January 23, 2023 In-Center Hemodialysis Treatment 9806-36-90S66:55:00.000Z 6098-89-37L73:56:17.000Z BP Sitting (Pre-Dialysis) 167/87 mmHg BP Sitting [...] degF January 21, 2023 In-Center Hemodialysis Treatment 0894-52-61T12:55:00.000Z 7962-46-43O75:55:23.000Z BP Sitting (Pre-Dialysis) 158/83 mmHg BP Sitting (Post-Dialysis) 160/77 mmHg Concurrent Access: falseAV Fistula Forearm (Left) Arterial BP Standing (Pre-Dialysis) 151/82 mmHg BP Standing (P ost-Dialysis) 160/77 mmHg Sitting Heart Rate Pre-Dialysis 72 BPM Sitting Heart Rate Post-Dialysis 66 BPM Standing Heart Rate Pre-Dialysis 72 BPM Standing Heart Rate Post-Dialysis 70 BPM Temperature Pre-Dialysis 97.6 degF January 18, 2023 In-Center Hemodialysis Treatment 2887-18-67W83:54:00.000Z 4898-96-88J49:58:19.000Z BP Sitting (Pre-Dialysis) 165/80 mmHg BP Sitting [...] degF January 16, 2023 In-Center Hemodialysis Treatment 2758-23-31Z12:00:19.000Z 7991-25-20O01:59:42.000Z BP Sitting (Pre-Dialysis) 158/82 mmHg BP Sitting (Post-Dialysis) 116/57 mmHg Concurrent Access: falseAV Fistula Forearm (Left) Arterial BP Standing (Pre-Dialysis) 153/75 mmHg Sitti ng Heart Rate Post-Dialysis 62 BPM Sitting Heart Rate Pre-Dialysis 75 BPM Temperatu re Post-Dialysis 97.6 degF Standing Heart Rate Pre-Dialysis 77 BPM Temperature Pre-Dialysis 97.6 degF January 14, 2023 In-Center Hemodialysis Treatment 1258-22-55I79:56:00.000Z 5922-98-92M50:57:20.000Z BP Sitting (Pre-Dialysis) 177/88 mmHg BP Sitting [...] degF January 11, 2023 In-Center Hemodialysis Treatment 6713-18-40G18:00:27.000Z 9416-71-01N36:03:27.000Z BP Sitting (Pre-Dialysis) 160/95 mmHg BP Sitting [...] degF January 09, 2023 In-Center Hemodialysis Treatment 4243-47-27Z93:48:00.000Z 3622-82-03I58:46:27.000Z BP Sitting (Pre-Dialysis) 167/89 mmHg BP Sitting [...] degF January 07, 2023 In-Center Hemodialysis Treatment 4418-94-63L94:53:27.000Z 5873-80-30R42:51:27.000Z BP Sitting (Pre-Dialysis) 169/89 mmHg BP Sitting (Post-Dialysis) 162/83 mmHg Concurrent Access: falseAV Fistula Forearm (Left) Arterial BP Standing (Pre-Dialysis) 156/81 mmHg BP Standing (P ost-Dialysis) 166/78 mmHg Sitting Heart Rate Pre-Dialysis 79 BPM Sitting Heart Rate Post-Dialysis 72 BPM Standing Heart Rate Pre-Dialysis 80 BPM Standing Heart Rate Post-Dialysis 74 BPM Temperature Pre-Dialysis 97.3 degF Temperature Post -Dialysis 98.2 degF January 04, 2023 In-Center Hemodialysis Treatment 9274-17-77T31:48:00.000Z 7238-75-61J25:48:16.000Z BP Sitting (Pre-Dialysis) 173/83 mmHg BP Sitting [...] degF January 02, 2023 In-Center Hemodialysis Treatment 4545-76-22M98:50:01.000Z 2294-69-50R61:50:01.000Z BP Sitting (Pre-Dialysis) 163/87 mmHg BP Sitting (Post-Dialysis) 154/76 mmHg Concurrent Access: falseAV Fistula Forearm (Left) Arterial BP Standing (Pre-Dialysis) 166/87 mmHg Sitti ng Heart Rate Post-Dialysis 70 BPM Sitting Heart Rate Pre-Dialysis 79 BPM Temperatu re Post-Dialysis 98.2 degF Standing Heart Rate Pre-Dialysis 79 BPM Temperature Pre-Dialysis 97.9 degF December 31, 2022 In-Center Hemodialysis Treatment [id number]:54:00.000Z [id number]:53:16.000Z BP Sitting (Pre-Dialysis) 163/89 mmHg BP Sitting (Post-Dialysis) 158/63 mmHg Concurrent Access: falseAV Fistula Forearm (Left) Arterial BP Standing (Pre-Dialysis) 164/90 mmHg BP Standing (P ost-Dialysis) 159/79 mmHg Sitting Heart Rate Pre-Dialysis 78 BPM Sitting Heart Rate Post-Dialysis 74 BPM Standing Heart Rate Pre-Dialysis 80 BPM Standing Heart Rate Post-Dialysis 75 BPM Temperature Pre-Dialysis 97.8 degF December 28, 2022 In-Center Hemodialysis Treatment [id number]:53:00.000Z [id number]:57:15.000Z BP Sitting (Pre-Dialysis) 162/83 mmHg BP Sitting [...] degF December 26, 2022 In-Center Hemodialysis Treatment [id number]:50:00.000Z [id number]:54:31.000Z BP Sitting (Pre-Dialysis) 175/97 mmHg BP Sitting [...] degF December 24, 2022 In-Center Hemodialysis Treatment 7425-65-12O10:57:30.000Z 0448-22-80H42:55:31.000Z BP Sitting (Pre-Dialysis) 182/98 mmHg BP Sitting [...] degF December 21, 2022 In-Center Hemodialysis Treatment 0755-84-85J81:57:00.000Z 2261-70-17Q83:51:00.000Z BP Sitting (Pre-Dialysis) 171/95 mmHg BP Sitting [...] degF December 20, 2022 In-Center Hemodialysis Treatment 9127-84-62J28:58:00.000Z 9397-79-92K51:00:09.000Z BP Sitting (Pre-Dialysis) 170/91 mmHg BP Sitting [...] degF December 17, 2022 In-Center Hemodialysis Treatment 5570-75-35P32:55:00.000Z 3711-86-53Z75:56:41.000Z BP Sitting (Pre-Dialysis) 157/87 mmHg BP Sitting [...] degF December 14, 2022 In-Center Hemodialysis Treatment 9548-01-71U26:00:00.000Z 2149-96-29I84:02:58.000Z BP Sitting (Pre-Dialysis) 176/87 mmHg BP Sitting [...] degF December 12, 2022 In-Center Hemodialysis Treatment 3343-81-79M36:57:48.000Z 5643-41-36I59:00:48.000Z BP Sitting (Pre-Dialysis) 166/85 mmHg BP Sitting [...] degF December 10, 2022 In-Center Hemodialysis Treatment 5348-19-83V08:53:00.000Z 8725-97-31D31:57:14.000Z BP Sitting (Pre-Dialysis) 166/85 mmHg BP Sitting (Post-Dialysis) 158/80 mmHg Concurrent Access: falseAV Fistula Forearm (Left) Arterial BP Standing (Pre-Dialysis) 152/75 mmHg BP Standing (P ost-Dialysis) 152/79 mmHg Sitting Heart Rate Pre-Dialysis 78 BPM Sitting Heart Rate Post-Dialysis 73 BPM Standing Heart Rate Pre-Dialysis 79 BPM Standing Heart Rate Post-Dialysis 75 BPM Temperature Pre-Dialysis 97.8 degF December 07, 2022 In-Center Hemodialysis Treatment 0597-67-04B00:58:00.000Z 1355-21-56H34:01:19.000Z BP Sitting (Pre-Dialysis) 180/91 mmHg BP Sitting [...] degF December 05, 2022 In-Center Hemodialysis Treatment 0087-56-70Z35:00:18.000Z 7921-91-07U19:59:19.000Z BP Sitting (Pre-Dialysis) 162/88 mmHg BP Sitting [...] degF December 03, 2022 In-Center Hemodialysis Treatment 7795-86-19L23:57:00.000Z 8911-30-42G44:58:19.000Z BP Sitting (Pre-Dialysis) 158/79 mmHg BP Sitting [...] degF November 30, 2022 In-Center Hemodialysis Treatment 5337-91-25I82:55:00.000Z 6822-21-97E44:57:29.000Z BP Sitting (Pre-Dialysis) 166/86 mmHg BP Sitting [...] degF November 28, 2022 In-Center Hemodialysis Treatment 2628-58-55D31:02:28.000Z 3054-20-55H46:02:29.000Z BP Sitting (Pre-Dialysis) 161/85 mmHg BP Sitting (Post-Dialysis) 155/80 mmHg Concurrent Access: falseAV Fistula Forearm (Left) Arterial BP Standing (Pre-Dialysis) 157/84 mmHg BP Standing (P ost-Dialysis) 160/78 mmHg Sitting Heart Rate Pre-Dialysis 80 BPM Sitting Heart Rate Post-Dialysis 75 BPM Standing Heart Rate Pre-Dialysis 80 BPM Standing Heart Rate Post-Dialysis 75 BPM Temperature Pre-Dialysis 97.8 degF November 26, 2022 In-Center Hemodialysis Treatment 0320-16-90W87:50:00.000Z 5120-59-89B56:50:28.000Z BP Sitting (Pre-Dialysis) 191/64 mmHg BP Sitting [...] degF November 23, 2022 In-Center Hemodialysis Treatment 7445-12-15W35:55:42.000Z 7979-25-98T90:56:43.000Z BP Sitting (Pre-Dialysis) 163/87 mmHg BP Sitting [...] degF November 21, 2022 In-Center Hemodialysis Treatment 2783-57-20X55:00:42.000Z 4230-26-97M32:01:43.000Z BP Sitting (Pre-Dialysis) 172/92 mmHg BP Sitting [...] degF November 19, 2022 In-Center Hemodialysis Treatment 4003-13-52N26:54:00.000Z 2450-07-86N10:56:43.000Z BP Sitting (Pre-Dialysis) 161/83 mmHg BP Sitting (Post-Dialysis) 154/78 mmHg Concurrent Access: falseAV Fistula Forearm (Left) Arterial BP Standing (Pre-Dialysis) 160/84 mmHg BP Standing (P ost-Dialysis) 159/76 mmHg Sitting Heart Rate Pre-Dialysis 86 BPM Sitting Heart Rate Post-Dialysis 82 BPM Standing Heart Rate Pre-Dialysis 86 BPM Standing Heart Rate Post-Dialysis 81 BPM Temperature Pre-Dialysis 97.6 degF Temperature Post -Dialysis 97.4 degF November 16, 2022 In-Center Hemodialysis Treatment 9177-82-09R31:41:00.000Z 9252-45-63P27:43:36.000Z BP Sitting (Pre-Dialysis) 173/90 mmHg BP Sitting (Post-Dialysis) 158/82 mmHg Concurrent Access: falseAV Fistula Forearm (Left) Arterial BP Standing (Pre-Dialysis) 163/84 mmHg BP Standing (P ost-Dialysis) 158/77 mmHg Sitting Heart Rate Pre-Dialysis 84 BPM Sitting Heart Rate Post-Dialysis 75 BPM Standing Heart Rate Pre-Dialysis 85 BPM Standing Heart Rate Post-Dialysis 78 BPM Temperature Pre-Dialysis 98.1 degF November 14, 2022 In-Center Hemodialysis Treatment 3857-00-31B75:42:00.000Z 1367-65-01Z38:47:36.000Z BP Sitting (Pre-Dialysis) 162/85 mmHg BP Sitting (Post-Dialysis) 154/80 mmHg Concurrent Access: falseAV Fistula Forearm (Left) Arterial BP Standing (Pre-Dialysis) 155/87 mmHg BP Standing (P ost-Dialysis) 164/83 mmHg Sitting Heart Rate Pre-Dialysis 81 BPM Sitting Heart Rate Post-Dialysis 74 BPM Standing Heart Rate Pre-Dialysis 82 BPM Standing Heart Rate Post-Dialysis 75 BPM Temperature Pre-Dialysis 98.2 degF Temperature Post -Dialysis 97.6 degF November 12, 2022 In-Center Hemodialysis Treatment 3529-74-68D81:36:00.000Z 9410-82-51B38:39:36.000Z BP Sitting (Pre-Dialysis) 157/83 mmHg BP Sitting [...] degF November 09, 2022 In-Center Hemodialysis Treatment 3540-04-71S54:45:00.000Z 3677-88-22K14:47:11.000Z BP Sitting (Pre-Dialysis) 162/89 mmHg BP Sitting (Post-Dialysis) 155/83 mmHg Concurrent Access: falseAV Fistula Forearm (Left) Arterial BP Standing (Pre-Dialysis) 157/82 mmHg BP Standing (P ost-Dialysis) 157/79 mmHg Sitting Heart Rate Pre-Dialysis 82 BPM Sitting Heart Rate Post-Dialysis 74 BPM Standing Heart Rate Pre-Dialysis 82 BPM Standing Heart Rate Post-Dialysis 78 BPM Temperature Pre-Dialysis 97.3 degF November 07, 2022 In-Center Hemodialysis Treatment 3669-58-88Y16:37:00.000Z 5530-42-70T52:40:11.000Z BP Sitting (Pre-Dialysis) 173/87 mmHg BP Sitting [...] degF November 05, 2022 In-Center Hemodialysis Treatment 7024-27-22S42:44:00.000Z 8171-25-36W74:47:26.000Z BP Sitting (Pre-Dialysis) 176/87 mmHg BP Sitting (Post-Dialysis) 163/84 mmHg Concurrent Access: falseAV Fistula Forearm (Left) Arterial BP Standing (Pre-Dialysis) 172/91 mmHg BP Standing (P ost-Dialysis) 166/82 mmHg Sitting Heart Rate Pre-Dialysis 83 BPM Sitting Heart Rate Post-Dialysis 78 BPM Standing Heart Rate Pre-Dialysis 84 BPM Standing Heart Rate Post-Dialysis 80 BPM Temperature Pre-Dialysis 97.6 degF November 02, 2022 In-Center Hemodialysis Treatment 8915-75-11P32:34:00.000Z 4429-17-14T14:33:46.000Z BP Sitting (Pre-Dialysis) 167/91 mmHg BP Sitting [...] degF October 31, 2022 In-Center Hemodialysis Treatment 7438-99-68X51:50:00.000Z 2338-09-11F65:52:46.000Z BP Sitting (Pre-Dialysis) 172/88 mmHg BP Sitting [...] degF October 29, 2022 In-Center Hemodialysis Treatment 3736-02-17H89:32:00.000Z 9443-25-86X79:38:46.000Z BP Sitting (Pre-Dialysis) 154/73 mmHg BP Sitting [...] degF October 26, 2022 In-Center Hemodialysis Treatment 4357-57-13L81:40:00.000Z 3374-59-52I75:41:18.000Z BP Sitting (Pre-Dialysis) 150/84 mmHg BP Sitting (Post-Dialysis) 155/80 mmHg Concurrent Access: falseAV Fistula Forearm (Left) Arterial BP Standing (Pre-Dialysis) 153/81 mmHg Sitti ng Heart Rate Post-Dialysis 80 BPM Sitting Heart Rate Pre-Dialysis 81 BPM Temperatu re Post-Dialysis 97.6 degF Standing Heart Rate Pre-Dialysis 81 BPM Temperature Pre-Dialysis 97.9 degF October 24, 2022 In-Center Hemodialysis Treatment 8690-78-72Z21:36:00.000Z 2391-13-43A47:39:18.000Z BP Sitting (Pre-Dialysis) 162/87 mmHg BP Sitting [...] degF October 22, 2022 In-Center Hemodialysis Treatment 8057-88-52W64:45:00.000Z 0878-01-13V43:46:42.000Z BP Sitting (Pre-Dialysis) 171/89 mmHg BP Sitting (Post-Dialysis) 156/83 mmHg Concurrent Access: falseAV Fistula Forearm (Left) Arterial BP Standing (Pre-Dialysis) 158/83 mmHg Sitti ng Heart Rate Post-Dialysis 81 BPM Sitting Heart Rate Pre-Dialysis 87 BPM Temperatu re Post-Dialysis 97.8 degF Standing Heart Rate Pre-Dialysis 87 BPM Temperature Pre-Dialysis 97.9 degF October 19, 2022 In-Center Hemodialysis Treatment 2883-02-36P54:50:00.000Z 3411-36-34P38:35:50.000Z BP Sitting (Pre-Dialysis) 169/88 mmHg BP Sitting [...] degF October 17, 2022 In-Center Hemodialysis Treatment 4628-40-63L08:38:00.000Z 1280-66-83J21:38:15.000Z BP Sitting (Pre-Dialysis) 174/89 mmHg BP Sitting [...] degF October 15, 2022 In-Center Hemodialysis Treatment 9999-24-74A84:43:38.000Z 2793-92-37Z65:42:38.000Z BP Sitting (Pre-Dialysis) 168/87 mmHg BP Sitting (Post-Dialysis) 160/82 mmHg Concurrent Access: falseAV Fistula Forearm (Left) Arterial BP Standing (Pre-Dialysis) 167/86 mmHg BP Standing (P ost-Dialysis) 162/78 mmHg Sitting Heart Rate Pre-Dialysis 88 BPM Sitting Heart Rate Post-Dialysis 81 BPM Standing Heart Rate Pre-Dialysis 89 BPM Standing Heart Rate Post-Dialysis 82 BPM Temperature Pre-Dialysis 97.6 degF October 12, 2022 In-Center Hemodialysis Treatment 5277-14-04P19:37:00.000Z 0281-15-58I26:40:09.000Z BP Sitting (Pre-Dialysis) 164/84 mmHg BP Sitting [...] degF October 10, 2022 In-Center Hemodialysis Treatment 5737-93-32L63:47:00.000Z 0234-20-73W28:50:09.000Z BP Sitting (Pre-Dialysis) 164/87 mmHg BP Sitting [...] degF October 08, 2022 In-Center Hemodialysis Treatment 8556-59-41A63:46:00.000Z 6086-53-17S39:45:09.000Z BP Sitting (Pre-Dialysis) 171/91 mmHg BP Sitting (Post-Dialysis) 157/82 mmHg Concurrent Access: falseAV Fistula Forearm (Left) Arterial BP Standing (Pre-Dialysis) 165/83 mmHg Sitting Heart Rate Post-Dialysis 81 BPM Sitting Heart Rate Pre-Dialysis 93 BPM Temperatu re Post-Dialysis 97 degF Standing Heart Rate Pre-Dialysis 93 BPM Temperature Pre-Dialysis 97.8 degF October 05, 2022 In-Center Hemodialysis Treatment 9506-79-04R94:42:00.000Z 0411-27-98R15:40:29.000Z BP Sitting (Pre-Dialysis) 165/88 mmHg BP Sitting [...] degF October 03, 2022 In-Center Hemodialysis Treatment 1709-90-10S69:43:00.000Z 6302-34-69B17:41:14.000Z BP Sitting (Pre-Dialysis) 170/87 mmHg BP Sitting (Post-Dialysis) 158/80 mmHg Concurrent Access: falseAV Fistula Forearm (Left) Arterial BP Standing (Pre-Dialysis) 155/84 mmHg Sitting Heart Rate Post-Dialysis 78 BPM Sitting Heart Rate Pre-Dialysis 90 BPM Temperatu re Post-Dialysis 97 degF Standing Heart Rate Pre-Dialysis 91 BPM Temperature Pre-Dialysis 97 degF October 01, 2022 In-Center Hemodialysis Treatment 0537-51-95C06:52:33.000Z 4686-59-20F98:53:33.000Z BP Sitting (Pre-Dialysis) 165/85 mmHg BP Sitting (Post-Dialysis) 136/77 mmHg Concurrent Access: falseAV Fistula Forearm (Left) Arterial BP Standing (Pre-Dialysis) 165/81 mmHg Sitti ng Heart Rate Post-Dialysis 81 BPM Sitting Heart Rate Pre-Dialysis 86 BPM Temperatu re Post-Dialysis 97.8 degF Standing Heart Rate Pre-Dialysis 86 BPM Temperature Pre-Dialysis 97.8 degF September 28, 2022 In-Center Hemodialysis Treatment 9960-33-49L47:41:31.000Z 9595-27-09Q98:43:32.000Z BP Sitting (Pre-Dialysis) 165/85 mmHg BP Sitting (Post-Dialysis) 162/84 mmHg Concurrent Access: falseAV Fistula Forearm (Left) Arterial BP Standing (Pre-Dialysis) 165/82 mmHg BP Standing (P ost-Dialysis) 160/87 mmHg Sitting Heart Rate Pre-Dialysis 86 BPM Sitting Heart Rate Post-Dialysis 78 BPM Standing Heart Rate Pre-Dialysis 87 BPM Standing Heart Rate Post-Dialysis 80 BPM Temperature Pre-Dialysis 97.6 degF Temperature Post -Dialysis 97.6 degF September 26, 2022 In-Center Hemodialysis Treatment 7945-83-33S09:49:00.000Z 0583-04-51M97:49:32.000Z BP Sitting (Pre-Dialysis) 166/86 mmHg BP Sitting (Post-Dialysis) 166/82 mmHg Concurrent Access: falseAV Fistula Forearm (Left) Arterial BP Standing (Pre-Dialysis) 158/82 mmHg BP Standing (P ost-Dialysis) 163/79 mmHg Sitting Heart Rate Pre-Dialysis 85 BPM Sitting Heart Rate Post-Dialysis 76 BPM Standing Heart Rate Pre-Dialysis 87 BPM Standing Heart Rate Post-Dialysis 80 BPM Temperature Pre-Dialysis 97.8 degF September 24, 2022 In-Center Hemodialysis Treatment 9560-90-66G85:52:00.000Z 9969-31-00I07:55:32.000Z BP Sitting (Pre-Dialysis) 157/85 mmHg BP Sitting (Post-Dialysis) 152/80 mmHg Concurrent Access: falseAV Fistula Forearm (Left) Arterial BP Standing (Pre-Dialysis) 163/85 mmHg BP Standing (P ost-Dialysis) 149/80 mmHg Sitting Heart Rate Pre-Dialysis 84 BPM Sitting Heart Rate Post-Dialysis 81 BPM Standing Heart Rate Pre-Dialysis 83 BPM Standing Heart Rate Post-Dialysis 82 BPM Temperature Pre-Dialysis 97.6 degF September 21, 2022 In-Center Hemodialysis Treatment 7892-78-44E72:46:00.000Z 6024-54-02C44:47:32.000Z BP Sitting (Pre-Dialysis) 159/86 mmHg BP Sitting [...] degF September 19, 2022 In-Center Hemodialysis Treatment 3748-94-89T88:47:00.000Z 7904-52-54D11:55:32.000Z BP Sitting (Pre-Dialysis) 163/85 mmHg BP Sitting [...] degF September 17, 2022 In-Center Hemodialysis Treatment 2263-94-08V06:57:00.000Z 3900-95-42V93:01:29.000Z BP Sitting (Pre-Dialysis) 158/88 mmHg BP Sitting [...] degF September 14, 2022 In-Center Hemodialysis Treatment 8309-04-51Z29:38:00.000Z 4567-67-68Q14:41:29.000Z BP Sitting (Pre-Dialysis) 160/80 mmHg BP Sitting [...] degF September 13, 2022 In-Center Hemodialysis Treatment 6669-14-12M89:11:00.000Z 9949-96-93R67:43:54.000Z BP Sitting (Pre-Dialysis) 156/83 mmHg BP Sitting [...] degF September 12, 2022 In-Center Hemodialysis Treatment 6123-84-26Q47:19:00.000Z 6472-49-74T44:22:29.000Z BP Sitting (Pre-Dialysis) 153/82 mmHg BP Sitting (Post-Dialysis) 142/72 mmHg Concurrent Access: falseAV Fistula Forearm (Left) Arterial Sitting Heart Rate Pre-Dialysis 90 BPM BP Standing (Post-Dialysis) 165/83 mmHg Temperature Pre-Dialysis 97.6 degF Sitting Heart Ra te Post-Dialysis 82 BPM Standing Heart Rate Post-Sandra lysis 86 BPM Temperature Post-Dialysis 97 .4 degF September 10, 2022 In-Center Hemodialysis Treatment 4649-02-35E44:40:00.000Z 9468-46-67G27:48:29.000Z BP Sitting (Pre-Dialysis) 169/88 mmHg BP Sitting [...] degF September 07, 2022 In-Center Hemodialysis Treatment 5453-99-68Z27:41:40.000Z 6104-15-94J98:40:39.000Z BP Sitting (Pre-Dialysis) 159/82 mmHg BP Sitting (Post-Dialysis) 159/87 mmHg Concurrent Access: falseAV Fistula Forearm (Left) Arterial BP Standing (Pre-Dialysis) 178/88 mmHg Sitti ng Heart Rate Post-Dialysis 74 BPM Sitting Heart Rate Pre-Dialysis 85 BPM Temperatu re Post-Dialysis 97.6 degF Standing Heart Rate Pre-Dialysis 87 BPM Temperature Pre-Dialysis 98.1 degF September 05, 2022 In-Center Hemodialysis Treatment 6280-77-97E14:32:40.000Z 7655-03-91Z14:34:40.000Z BP Sitting (Pre-Dialysis) 150/86 mmHg BP Sitting (Post-Dialysis) 137/76 mmHg Concurrent Access: falseAV Fistula Forearm (Left) Arterial BP Standing (Pre-Dialysis) 136/78 mmHg Sitti ng Heart Rate Post-Dialysis 73 BPM Sitting Heart Rate Pre-Dialysis 81 BPM Temperatu re Post-Dialysis 97.4 degF Standing Heart Rate Pre-Dialysis 85 BPM Temperature Pre-Dialysis 98 degF September 03, 2022 In-Center Hemodialysis Treatment 9791-06-78A29:06:39.000Z 7017-95-46I61:07:40.000Z BP Sitting (Pre-Dialysis) 169/84 mmHg BP Sitting [...] degF August 31, 2022 In-Center Hemodialysis Treatment 5382-21-87J62:28:00.000Z 5805-59-56W71:30:28.000Z BP Sitting (Pre-Dialysis) 163/84 mmHg BP Sitting [...] degF August 29, 2022 In-Center Hemodialysis Treatment 3335-29-01S90:41:00.000Z 1258-15-97S72:42:29.000Z BP Sitting (Pre-Dialysis) 172/82 mmHg BP Sitting [...] degF August 27, 2022 In-Center Hemodialysis Treatment 3135-36-87Y87:38:00.000Z 6354-53-49T55:40:29.000Z BP Sitting (Pre-Dialysis) 172/88 mmHg BP Sitting [...] degF August 24, 2022 In-Center Hemodialysis Treatment 9372-89-80H99:27:38.000Z 6822-39-68C80:35:38.000Z BP Sitting (Pre-Dialysis) 152/88 mmHg BP Sitting [...] degF August 22, 2022 In-Center Hemodialysis Treatment 1986-30-64U17:43:00.000Z 2962-45-01X92:42:38.000Z BP Sitting (Pre-Dialysis) 175/93 mmHg BP Sitting [...] degF August 20, 2022 In-Center Hemodialysis Treatment 4630-42-19A90:24:00.000Z 5221-10-49D66:37:38.000Z BP Sitting (Pre-Dialysis) 169/87 mmHg BP Sitting [...] degF August 17, 2022 In-Center Hemodialysis Treatment 4118-75-37P54:43:00.000Z 1768-33-40I44:47:25.000Z BP Sitting (Pre-Dialysis) 152/79 mmHg BP Sitting [...] degF August 15, 2022 In-Center Hemodialysis Treatment 7119-72-70E93:26:00.000Z 2635-59-51A07:34:25.000Z BP Sitting (Pre-Dialysis) 168/83 mmHg BP Sitting [...] degF August 13, 2022 In-Center Hemodialysis Treatment 2574-12-07O00:43:00.000Z 0049-96-61Q63:45:00.000Z BP Sitting (Pre-Dialysis) 157/83 mmHg BP Sitting [...] degF August 10, 2022 In-Center Hemodialysis Treatment 0319-22-93N01:16:00.000Z 3912-28-34Q71:23:37.000Z BP Sitting (Pre-Dialysis) 171/99 mmHg BP Sitting [...] degF August 08, 2022 In-Center Hemodialysis Treatment 6930-53-25J04:22:00.000Z 7980-05-38H12:23:37.000Z BP Sitting (Pre-Dialysis) 170/90 mmHg BP Sitting (Post-Dialysis) 165/85 mmHg Concurrent Access: falseAV Fistula Forearm (Left) Arterial BP Standing (Pre-Dialysis) 164/84 mmHg BP Standing (P ost-Dialysis) 169/84 mmHg Sitting Heart Rate Pre-Dialysis 90 BPM Sitting Heart Rate Post-Dialysis 79 BPM Standing Heart Rate Pre-Dialysis 92 BPM Standing Heart Rate Post-Dialysis 81 BPM Temperature Pre-Dialysis 97.2 degF August 07, 2022 In-Center Hemodialysis Treatment 6412-83-13Z08:08:13.000Z 2014-15-62F40:11:14.000Z BP Sitting (Pre-Dialysis) 148/68 mmHg BP Sitting (Post-Dialysis) 151/81 mmHg Concurrent Access: falseAV Fistula Forearm (Left) Arterial BP Standing (Pre-Dialysis) 158/80 mmHg Sitti ng Heart Rate Post-Dialysis 79 BPM Sitting Heart Rate Pre-Dialysis 81 BPM Temperatu re Post-Dialysis 97.3 degF Standing Heart Rate Pre-Dialysis 80 BPM Temperature Pre-Dialysis 97.9 degF August 06, 2022 In-Center Hemodialysis Treatment 5409-89-78C10:23:00.000Z 9291-56-39T02:23:37.000Z BP Sitting (Pre-Dialysis) 102/74 mmHg BP Sitting [...] degF August 03, 2022 In-Center Hemodialysis Treatment 7833-43-70C02:42:00.000Z 9083-90-72Y25:41:11.000Z BP Sitting (Pre-Dialysis) 181/82 mmHg BP Sitting [...] degF August 01, 2022 In-Center Hemodialysis Treatment 6574-75-66B08:44:00.000Z 2749-52-64L50:46:11.000Z BP Sitting (Pre-Dialysis) 155/83 mmHg BP Sitting [...] degF July 31, 2022 In-Center Hemodialysis Treatment 4342-36-38S56:32:00.000Z 3866-57-52S07:10:33.000Z BP Sitting (Pre-Dialysis) 162/82 mmHg BP Sitting [...] degF July 30, 2022 In-Center Hemodialysis Treatment 3381-01-09B43:35:00.000Z 7838-35-39Q42:40:11.000Z BP Sitting (Pre-Dialysis) 158/87 mmHg BP Sitting (Post-Dialysis) 150/85 mmHg Concurrent Access: falseAV Fistula Forearm (Left) Arterial BP Standing (Pre-Dialysis) 143/74 mmHg Sitting Heart Rate Post-Dialysis 78 BPM Sitting Heart Rate Pre-Dialysis 83 BPM Temperatu re Post-Dialysis 98 degF Standing Heart Rate Pre-Dialysis 85 BPM Temperature Pre-Dialysis 98.2 degF July 27, 2022 In-Center Hemodialysis Treatment 5002-07-89V62:42:00.000Z 5081-71-47J77:46:22.000Z BP Sitting (Pre-Dialysis) 159/82 mmHg BP Sitting [...] degF July 25, 2022 In-Center Hemodialysis Treatment 5846-60-84J11:26:00.000Z 9077-39-16H89:28:22.000Z BP Sitting (Pre-Dialysis) 174/93 mmHg BP Sitting [...] degF July 23, 2022 In-Center Hemodialysis Treatment 8039-31-86H03:10:00.000Z 0477-64-75G16:19:22.000Z BP Sitting (Pre-Dialysis) 169/93 mmHg BP Sitting [...] degF July 20, 2022 In-Center Hemodialysis Treatment 0782-48-88J97:10:00.000Z 6889-22-69O01:13:22.000Z BP Sitting (Pre-Dialysis) 171/99 mmHg BP Sitting [...] degF July 18, 2022 In-Center Hemodialysis Treatment 6505-36-82I33:49:00.000Z 5012-98-20Z64:54:15.000Z BP Sitting (Pre-Dialysis) 166/89 mmHg BP Sitting [...] degF July 16, 2022 In-Center Hemodialysis Treatment 0128-65-83C22:54:00.000Z 2030-09-08H12:07:22.000Z BP Sitting (Pre-Dialysis) 161/79 mmHg BP Sitting [...] degF July 13, 2022 In-Center Hemodialysis Treatment 0524-70-19G44:17:00.000Z 8654-26-73J15:19:55.000Z BP Sitting (Pre-Dialysis) 176/92 mmHg BP Sitting [...] degF July 11, 2022 In-Center Hemodialysis Treatment 4428-54-05V54:05:55.000Z 2632-65-43I17:10:55.000Z BP Sitting (Pre-Dialysis) 164/82 mmHg BP Sitting (Post-Dialysis) 171/87 mmHg Concurrent Access: falseAV Fistula Forearm (Left) Arterial BP Standing (Pre-Dialysis) 164/82 mmHg BP Standing (P ost-Dialysis) 164/87 mmHg Sitting Heart Rate Pre-Dialysis 80 BPM Sitting Heart Rate Post-Dialysis 68 BPM Standing Heart Rate Pre-Dialysis 81 BPM Standing Heart Rate Post-Dialysis 77 BPM Temperature Pre-Dialysis 97.4 degF July 09, 2022 In-Center Hemodialysis Treatment 8012-17-99I72:11:54.000Z 4426-50-05V96:17:55.000Z BP Sitting (Pre-Dialysis) 106/64 mmHg BP Sitting [...] degF July 06, 2022 In-Center Hemodialysis Treatment 2789-65-48V08:18:00.000Z 3017-10-44W79:26:06.000Z BP Sitting (Pre-Dialysis) 187/91 mmHg BP Sitting [...] degF July 04, 2022 In-Center Hemodialysis Treatment 8578-69-44W47:29:00.000Z 9297-69-70V85:30:15.000Z BP Sitting (Pre-Dialysis) 164/86 mmHg BP Sitting [...] degF July 02, 2022 In-Center Hemodialysis Treatment 1680-05-66E96:50:00.000Z 9823-97-96N65:52:15.000Z BP Sitting (Pre-Dialysis) 181/85 mmHg BP Sitting [...] Order Order Date/Time [facility]ations [facility] kg Dialysate Flow Rate 500 mL/min Blood Flow Rate 450 mL/min Treatment Time 240 min(total) Max UF Rate 13 mL/kg/hr Base Sodium Dialysate Base Sodium 138 mE q/L dialysate_temp 36.5 C BiCarb Dialysate BiCarbonate 36 mEq/L Access Concurrent No Arterial Access AV Fistula (Forearm (Left)) Venous Access AV Fistula (Forearm (Left)) Arterial Needle Display NIPRO, TULIP, 15 G x 1, SHARP , TWIN Venous Needle NIPRO, TULIP, 15G x 1, SHARP , TWIN Dialyzer Nipro Elisio 17H 145 5 [email or web address] Dialysate Bath Potassium Potassium 2 mEq /L Dialysate Bath Calcium Calcium 2.5 mEq/L In-Center Hemodialysis TreatmentAprtx 2024 Observation Value Target Weight 105 kg Dialysate Flow Rate 500 mL/min Blood Flow Rate 450 mL/min Treatment Time 240 min(total) Max UF Rate 13 mL/kg/hr Base Sodium Dialysate Base Sodium 138 mE q/L dialysate_temp 36.5 C BiCarb Dialysate BiCarbonate 36 mEq/L Access Concurrent No Arterial Access AV Fistula (Forearm (Left)) Venous Access AV Fistula (Forearm (Left)) Arterial Needle Display NIPRO, TULIP, 15 G x 1, SHARP , TWIN Venous Needle NIPRO, TULIP, 15G x 1, SHARP , TWIN Dialyzer Nipro Elisio 15H 126 4 [email or web address] Dialysate Bath Potassium Potassium 2 mEq /L Dialysate Bath Calcium Calcium 2.5 mEq/L Results Adequacy Description Draw Date Result/Unit Status Ref Range Result Comments Creatinine [Mass/volume] in Serum or Plasma 2025-04-01 23:10:20 9.63 mg/dL F 0.7-1.3 URR% 2025-03-27 00:08:02 70 % F DIALYZER FLOW-QD 2025-03-27 00:08:02 500 mL/min F Dialyzer MAGAN 2025-03-27 00:08:02 1264 Calc F LENGTH OF DIALYSIS 2025-03-27 00:08:02 242 min F PATIENT AGE 2025-03-27 00:08:02 44 Years F BSA CELENA 2025-03-27 00:08:02 2.24 sq m F WEIGHT - POST DAY 1 2025-03-27 00:08:02 101.6 kg F WEIGHT - PRE DAY 1 2025-03-27 00:08:02 106 kg F HEIGHT IN INCHES 2025-03-27 00:08:02 72 Inches F WEIGHT (KG) 2025-03-27 00:08:02 102.5 kg F PRESCRIBED DAYS/WEEK 2025-03-27 00:08:02 3 Day/Wk F VT (KT/V TX VOL) 2025-03-27 00:08:02 45.7 L F VM (KT/V MEAN VOL) 2025-03-27 00:08:02 48.2 F Residual kt/v 2025-03-27 00:08:02 F KT/V PRESCRIBED 2025-03-27 00:08:02 1.59 F Total Kt/V 2025-03-27 00:08:02 1.51 F AMPUTATE FACTOR 2025-03-27 00:08:02 0 F nPCR 2025-03-27 00:08:02 0.81 G/KG/D F TBW (Valentin) 2025-03-27 00:08:02 51.87 Liters F eKt/V 2025-03-27 00:08:02 1.3 F spKt/V 2025-03-27 00:08:02 1.51 F Std Renal KT/V 2025-03-27 00:08:02 N/A F stdKt/V (DIAL) 2025-03-27 00:08:02 N/A F TOTAL HOURS/WEEK DIALYSIS 2025-03-27 00:08:02 12 hrs F stdKT/V Total 2025-03-27 00:08:02 N/A F BLOOD FLOW-QWB 2025-03-27 00:08:02 450 F CURRENT KRU 2025-03-27 00:08:02 F Urea nitrogen [Mass/volume] in Serum or Plasma 2025-03-27 00:06:26 37 mg/dL F 9.0-23.0 Urea nitrogen [Mass/volume] in Serum or Plasma --post dialysis 2025-03-26 01:26:16 11 mg/dL F 9.0-23.0 Creatinine [Mass/volume] in Serum or Plasma 2025-03-04 13:58:09 9.1 mg/dL F 0.7-1.3 URR% 2025-02-27 17:01:55 67 % F Dialyzer MAGAN 2025-02-27 17:01:55 1264 Calc F LENGTH OF DIALYSIS 2025-02-27 17:01:55 238 min F DIALYZER FLOW-QD 2025-02-27 17:01:55 500 mL/min F PATIENT AGE 2025-02-27 17:01:55 44 Years F BSA CELENA 2025-02-27 17:01:55 2.26 sq m F WEIGHT - POST DAY 1 2025-02-27 17:01:55 105.9 kg F WEIGHT - PRE DAY 1 2025-02-27 17:01:55 111.2 kg F HEIGHT IN INCHES 2025-02-27 17:01:55 72 Inches F WEIGHT (KG) 2025-02-27 17:01:55 104 kg F PRESCRIBED DAYS/WEEK 2025-02-27 17:01:55 3 Day/Wk F VT (KT/V TX VOL) 2025-02-27 17:01:55 48.3 L F Residual kt/v 2025-02-27 17:01:55 F Unable to calculate: Post BUN lab result is unknown VM (KT/V MEAN VOL) 2025-02-27 17:01:55 49 F KT/V PRESCRIBED 2025-02-27 17:01:55 1.55 F Total Kt/V 2025-02-27 17:01:55 1.39 F AMPUTATE FACTOR 2025-02-27 17:01:55 0 F nPCR 2025-02-27 17:01:55 0.86 G/KG/D F TBW ([facility]) 2025-02-27 17:01:55 53.31 Liters F eKt/V 2025-02-27 17:01:55 1.2 F spKt/V 2025-02-27 17:01:55 1.39 F stdKt/V (DIAL) 2025-02-27 17:01:55 N/A F Std Renal KT/V 2025-02-27 17:01:55 N/A F stdKT/V Total 2025-02-27 17:01:55 N/A F TOTAL HOURS/WEEK DIALYSIS 2025-02-27 17:01:55 8 hrs F BLOOD FLOW-QWB 2025-02-27 17:01:55 433 F CURRENT KRU 2025-02-27 17:01:55 F Unable to calculate: Post BUN lab result is unknown Urea nitrogen [Mass/volume] in Serum or Plasma --post dialysis 2025-02-27 17:00:13 17 mg/dL F 9.0-23.0 Urea nitrogen [Mass/volume] in Serum or Plasma 2025-02-27 15:47:13 52 mg/dL F 9.0-23.0 Creatinine [Mass/volume] in Serum or Plasma 2025-02-04 13:44:22 13.7 mg/dL F 0.7-1.3 URR% 2025-01-21 22:40:08 67 % F DIALYZER FLOW-QD 2025-01-21 22:40:08 500 mL/min F Dialyzer MAGAN 2025-01-21 22:40:08 1264 Calc F LENGTH OF DIALYSIS 2025-01-21 22:40:08 237 min F PATIENT AGE 2025-01-21 22:40:08 44 Years F BSA CELENA 2025-01-21 22:40:08 2.27 sq m F WEIGHT - PRE DAY 1 2025-01-21 22:40:08 114.6 kg F WEIGHT - POST DAY 1 2025-01-21 22:40:08 109.3 kg F PRESCRIBED DAYS/WEEK 2025-01-21 22:40:08 3 Day/Wk F HEIGHT IN INCHES 2025-01-21 22:40:08 72 Inches F WEIGHT (KG) 2025-01-21 22:40:08 105 kg F VT (KT/V TX VOL) 2025-01-21 22:40:08 48.2 L F KT/V PRESCRIBED 2025-01-21 22:40:08 1.53 F VM (KT/V MEAN VOL) 2025-01-21 22:40:08 49.2 F Residual kt/v 2025-01-21 22:40:08 F Total Kt/V 2025-01-21 22:40:08 1.39 F nPCR 2025-01-21 22:40:08 1.02 G/KG/D F AMPUTATE FACTOR 2025-01-21 22:40:08 0 F TBW ([facility]) 2025-01-21 22:40:08 54.46 Liters F spKt/V 2025-01-21 22:40:08 1.39 F eKt/V 2025-01-21 22:40:08 1.2 F stdKt/V (DIAL) 2025-01-21 22:40:08 N/A F Std Renal KT/V 2025-01-21 22:40:08 N/A F stdKT/V Total 2025-01-21 22:40:08 N/A F TOTAL HOURS/WEEK DIALYSIS 2025-01-21 22:40:08 11 hrs F BLOOD FLOW-QWB 2025-01-21 22:40:08 439 F CURRENT KRU 2025-01-21 22:40:08 F Dialyzer MAGAN 2025-01-21 22:40:08 1264 Calc F LENGTH OF DIALYSIS 2025-01-21 22:40:08 237 min F WEIGHT - POST DAY 1 2025-01-21 22:40:08 109.3 kg F WEIGHT - PRE DAY 1 2025-01-21 22:40:08 114.6 kg F HEIGHT IN INCHES 2025-01-21 22:40:08 72 Inches F VT (KT/V TX VOL) 2025-01-21 22:40:08 48.2 L F TBW ([facility]) 2025-01-21 22:40:08 54.46 Liters F VM (KT/V MEAN VOL) 2025-01-21 22:40:08 49.2 F stdKt/V (DIAL) 2025-01-21 22:40:08 N/A F stdKT/V Total 2025-01-21 22:40:08 N/A F URR% 2025-01-21 22:40:08 67 % F DIALYZER FLOW-QD 2025-01-21 22:40:08 500 mL/min F PATIENT AGE 2025-01-21 22:40:08 44 Years F WEIGHT (KG) 2025-01-21 22:40:08 105 kg F BSA CELENA 2025-01-21 22:40:08 2.27 sq m F PRESCRIBED DAYS/WEEK 2025-01-21 22:40:08 3 Day/Wk F Residual kt/v 2025-01-21 22:40:08 F KT/V PRESCRIBED 2025-01-21 22:40:08 1.53 F Total Kt/V 2025-01-21 22:40:08 1.39 F nPCR 2025-01-21 22:40:08 1.02 G/KG/D F AMPUTATE FACTOR 2025-01-21 22:40:08 0 F spKt/V 2025-01-21 22:40:08 1.39 F eKt/V 2025-01-21 22:40:08 1.2 F Std Renal KT/V 2025-01-21 22:40:08 N/A F TOTAL HOURS/WEEK DIALYSIS 2025-01-21 22:40:08 11 hrs F CURRENT KRU 2025-01-21 22:40:08 F BLOOD FLOW-QWB 2025-01-21 22:40:08 439 F Urea nitrogen [Mass/volume] in Serum or Plasma 2025-01-21 22:38:18 51 mg/dL F 9.0-23.0 Urea nitrogen [Mass/volume] in Serum or Plasma 2025-01-21 22:38:18 51 mg/dL F 9.0-23.0 Urea nitrogen [Mass/volume] in Serum or Plasma --post dialysis 2025-01-21 20:06:21 17 mg/dL F 9.0-23.0 Urea nitrogen [Mass/volume] in Serum or Plasma --post dialysis 2025-01-21 20:06:21 17 mg/dL F 9.0-23.0 Creatinine [Mass/volume] in Serum or Plasma 2024-12-31 16:48:18 9.53 mg/dL F 0.7-1.3 URR% 2024-12-25 04:22:15 68 % F DIALYZER FLOW-QD 2024-12-25 04:22:15 500 mL/min F Dialyzer MAGAN 2024-12-25 04:22:15 1264 Calc F LENGTH OF DIALYSIS 2024-12-25 04:22:15 239 min F WEIGHT - POST DAY 1 2024-12-25 04:22:15 108.1 kg F VT (KT/V TX VOL) 2024-12-25 04:22:15 47.9 L F KT/V PRESCRIBED 2024-12-25 04:22:15 1.55 F AMPUTATE FACTOR 2024-12-25 04:22:15 0 F eKt/V 2024-12-25 04:22:15 1.23 F stdKt/V (DIAL) 2024-12-25 04:22:15 N/A F stdKT/V Total 2024-12-25 04:22:15 N/A F TOTAL HOURS/WEEK DIALYSIS 2024-12-25 04:22:15 11 hrs F PATIENT AGE 2024-12-25 04:22:15 44 Years F BSA CELENA 2024-12-25 04:22:15 2.27 sq m F WEIGHT (KG) 2024-12-25 04:22:15 105 kg F HEIGHT IN INCHES 2024-12-25 04:22:15 72 Inches F WEIGHT - PRE DAY 1 2024-12-25 04:22:15 113.4 kg F PRESCRIBED DAYS/WEEK 2024-12-25 04:22:15 3 Day/Wk F VM (KT/V MEAN VOL) 2024-12-25 04:22:15 49.5 F Total Kt/V 2024-12-25 04:22:15 1.43 F Residual kt/v 2024-12-25 04:22:15 F nPCR 2024-12-25 04:22:15 0.84 G/KG/D F TBW ([facility]) 2024-12-25 04:22:15 54.05 Liters F Std Renal KT/V 2024-12-25 04:22:15 N/A F spKt/V 2024-12-25 04:22:15 1.43 F CURRENT KRU 2024-12-25 04:22:15 F BLOOD FLOW-QWB 2024-12-25 04:22:15 450 F Urea nitrogen [Mass/volume] in Serum or Plasma 2024-12-25 04:20:23 40 mg/dL F 9.0-23.0 Urea nitrogen [Mass/volume] in Serum or Plasma --post dialysis 2024-12-24 15:08:16 13 mg/dL F 9.0-23.0 URR% 2024-11-24 20:03:29 67 % F DIALYZER FLOW-QD 2024-11-24 20:03:29 500 mL/min F LENGTH OF DIALYSIS 2024-11-24 20:03:29 241 min F WEIGHT - POST DAY 1 2024-11-24 20:03:29 112.6 kg F WEIGHT (KG) 2024-11-24 20:03:29 105 kg F PRESCRIBED DAYS/WEEK 2024-11-24 20:03:29 3 Day/Wk F Residual kt/v 2024-11-24 20:03:29 F nPCR 2024-11-24 20:03:29 0.86 G/KG/D F TBW ([facility]) 2024-11-24 20:03:29 55.57 Liters F KT/V PRESCRIBED 2024-11-24 20:03:29 1.56 F Std Renal KT/V 2024-11-24 20:03:29 N/A F stdKt/V (DIAL) 2024-11-24 20:03:29 N/A F stdKT/V Total 2024-11-24 20:03:29 N/A F CURRENT KRU 2024-11-24 20:03:29 F Dialyzer MAGAN 2024-11-24 20:03:29 1264 Calc F PATIENT AGE 2024-11-24 20:03:29 44 Years F BSA CELENA 2024-11-24 20:03:29 2.27 sq m F WEIGHT - PRE DAY 1 2024-11-24 [...] Urea nitrogen [Mass/volume] in Serum or Plasma URR% DIALYZER FLOW-QD Dialyzer MAGAN LENGTH OF DIALYSIS PATIENT AGE BSA CELENA WEIGHT - POST DAY 1 WEIGHT - PRE DAY 1 WEIGHT (KG) PRESCRIBED DAYS/WEEK HEIGHT IN INCHES VT (KT/V TX VOL) KT/V PRESCRIBED Residual kt/v VM (KT/V MEAN VOL) Total Kt/V nPCR AMPUTATE FACTOR TBW ([place]) spKt/V eKt/V stdKt/V (DIAL) stdKT/V Total Std Renal KT/V TOTAL HOURS/WEEK DIALYSIS BLOOD FLOW-QWB CURRENT KRU Urea nitrogen [Mass/volume] in Serum or Plasma URR% DIALYZER FLOW-QD Dialyzer MAGAN LENGTH OF DIALYSIS PATIENT AGE BSA CELENA WEIGHT - POST DAY 1 WEIGHT - PRE DAY 1 HEIGHT IN INCHES WEIGHT (KG) PRESCRIBED DAYS/WEEK VT (KT/V TX VOL) VM (KT/V MEAN VOL) KT/V PRESCRIBED Residual kt/v Total Kt/V nPCR AMPUTATE FACTOR TBW ([place]) spKt/V eKt/V stdKt/V (DIAL) Std Renal KT/V stdKT/V Total TOTAL HOURS/WEEK DIALYSIS BLOOD FLOW-QWB CURRENT KRU Urea nitrogen [Mass/volume] in Serum or Plasma DIALYZER FLOW-QD LENGTH OF DIALYSIS PATIENT AGE Dialyzer MAGAN WEIGHT - POST DAY 1 WEIGHT - PRE DAY 1 HEIGHT IN INCHES WEIGHT (KG) PRESCRIBED DAYS/WEEK VT (KT/V TX VOL) Total Kt/V VM (KT/V MEAN VOL) AMPUTATE FACTOR TBW ([facility]) spKt/V stdKt/V (DIAL) stdKT/V Total TOTAL HOURS/WEEK DIALYSIS URR% BSA CELENA Residual kt/v KT/V PRESCRIBED nPCR eKt/V Std Renal KT/V BLOOD FLOW-QWB CURRENT KRU Anemia Description Draw Date Result/Unit Status Ref Range Result Comments HCT CALC HGBX3 2025-04-02 07:05:54 30.6 % F 42.0-52.0 Erythrocyte distribution width [Ratio] by Automated count 2025-04-02 06:56:20 15.9 % F 11.0-15.0 Erythrocytes [#/volume] in Blood by Automated count 2025-04-02 06:56:20 3.27 x 10^6 cells/uL F 4.6-6.2 Hematocrit [Volume Fraction] of Blood by Automated count 2025-04-02 06:56:20 32 % F 41.0-53.0 MCV [Entitic volume] by Automated count 2025-04-02 06:56:20 97.6 fL F 80.0-100.0 Hemoglobin [Mass/volume] in Blood 2025-04-02 06:56:20 10.2 g/dL F 14.0-18.0 MCH [Entitic mass] by Automated count 2025-04-02 06:56:20 31.1 pg F 25.9-34.2 MCHC [Mass/volume] by Automated count 2025-04-02 06:56:20 31.9 g/dL F 29.6-35.3 Platelets [#/volume] in Blood by Automated count 2025-04-02 06:56:20 243 x 10^3 cells/uL F 140.0-450.0 HCT CALC HGBX3 2025-03-18 13:59:09 30.3 % F 42.0-52.0 Hemoglobin [Mass/volume] in Blood 2025-03-18 13:58:15 10.1 g/dL F 14.0-18.0 IRON SATURATION 2025-03-05 04:30:09 22 % F 21.0-49.0 TIBC 2025-03-05 04:30:09 217 ug/dL F 250.0-425.0 Iron binding capacity.unsaturated [Mass/volume] in Serum or Plasma 2025-03-05 04:28:29 170 ug/dL F 75.0-360.0 Iron [Mass/volume] in Serum or Plasma 2025-03-04 16:59:51 47 ug/dL F 65.0-175.0 Ferritin [Mass/volume] in Serum or Plasma 2025-03-04 15:57:20 648 ng/mL F 22.0-322.0 HCT CALC HGBX3 2025-03-04 14:11:15 30.6 % F 42.0-52.0 Hematocrit [Volume Fraction] of Blood by Automated count 2025-03-04 14:10:18 29.9 % F 41.0-53.0 Hemoglobin [Mass/volume] in Blood 2025-03-04 14:10:18 10.2 g/dL F 14.0-18.0 Erythrocytes [#/volume] in Blood by Automated count 2025-03-04 14:10:18 3.09 x 10^6 cells/uL F 4.6-6.2 MCV [Entitic volume] by Automated count 2025-03-04 14:10:18 96.8 fL F 80.0-100.0 Erythrocyte distribution width [Ratio] by Automated count 2025-03-04 14:10:16 16.7 % F 11.0-15.0 MCH [Entitic mass] by Automated count 2025-03-04 14:10:16 33 pg F 25.9-34.2 MCHC [Mass/volume] by Automated count 2025-03-04 14:10:16 34.1 g/dL F 29.6-35.3 Platelets [#/volume] in Blood by Automated count 2025-03-04 14:10:16 211 x 10^3 cells/uL F 140.0-450.0 HCT CALC HGBX3 2025-02-19 15:39:52 30 % F 42.0-52.0 Hemoglobin [Mass/volume] in Blood 2025-02-19 15:39:09 10 g/dL F 14.0-18.0 HCT CALC HGBX3 2025-02-04 15:43:16 30.3 % F 42.0-52.0 Erythrocyte distribution width [Ratio] by Automated count 2025-02-04 15:42:09 16.7 % F 11.0-15.0 Erythrocytes [#/volume] in Blood by Automated count 2025-02-04 15:42:09 3.17 x 10^6 cells/uL F 4.6-6.2 Hemoglobin [Mass/volume] in Blood 2025-02-04 15:42:07 10.1 g/dL F 14.0-18.0 MCV [Entitic volume] by Automated count 2025-02-04 15:42:07 98.5 fL F 80.0-100.0 Hematocrit [Volume Fraction] of Blood by Automated count 2025-02-04 15:42:07 31.2 % F 41.0-53.0 MCH [Entitic mass] by Automated count 2025-02-04 15:42:07 32 pg F 25.9-34.2 Platelets [#/volume] in Blood by Automated count 2025-02-04 15:42:07 194 x 10^3 cells/uL F 140.0-450.0 MCHC [Mass/volume] by Automated count 2025-02-04 15:42:07 32.5 g/dL F 29.6-35.3 HCT CALC HGBX3 2025-01-14 23:22:50 30 % [...] count 2024-12-31 16:47:15 102.4 fL F 80.0-100.0 MCH [Entitic mass] by Automated count 2024-12-31 16:47:15 34.1 pg F 25.9-34.2 Platelets [#/volume] in Blood by Automated count 2024-12-31 16:47:15 107 x 10^3 cells/uL F 140.0-450.0 Erythrocyte distribution width [Ratio] by Automated count [...] HGBX3 2024-11-24 16:57:09 29.4 % F 42.0-52.0 Hematocrit [Volume Fraction] of Blood by Automated count 2024-11-24 16:56:07 31.5 % F 41.0-53.0 Erythrocytes [#/volume] in Blood by Automated count 2024-11-24 16:56:07 3.07 x 10^6 cells/uL F 4.6-6.2 Hemoglobin [Mass/volume] in Blood 2024-11-24 16:56:07 9.8 g/dL F 14.0-18.0 MCV [Entitic volume] by Automated count 2024-11-24 16:56:07 102.5 fL F 80.0-100.0 MCHC [Mass/volume] by Automated count 2024-11-24 16:56:07 [...] Comments Sodium [Moles/volume] in Serum or Plasma 2025-04-02 07:30:41 138 mEq/L F 136.0-145.0 Sodium [Moles/volume] in Serum or Plasma 2025-03-04 16:59:42 133 mEq/L F 136.0-145.0 Sodium [Moles/volume] in Serum or Plasma 2025-02-05 01:36:16 133 mEq/L F 136.0-145.0 Sodium [Moles/volume] in Serum or Plasma 2024-12-31 23:19:39 138 mEq/L F 136.0-145.0 Sodium [Moles/volume] in Serum or Plasma 2024-11-24 20:32:41 133 mEq/L F 132.0-146.0 General Description Draw Date Result/Unit Status Ref Range Result Comments Chloride [Moles/volume] in Serum or Plasma 2025-04-02 07:30:41 95 mEq/L F 98.0-107.0 Alanine aminotransferase [Enzymatic activity/volume] in Serum or Plasma 2025-04-01 23:10:20 7 U/L F 10.0-49.0 Aspartate aminotransferase [Enzymatic activity/volume] in Serum or Plasma 2025-04-01 23:10:20 11 U/L F 0.0-33.0 Aluminum [Mass/volume] in Serum or Plasma 2025-03-04 18:26:25 10 ug/L F 0.0-9.0 Chloride [Moles/volume] in Serum or Plasma 2025-03-04 16:59:42 93 mEq/L F 98.0-107.0 Alanine aminotransferase [Enzymatic activity/volume] in Serum or Plasma 2025-03-04 13:58:09 7 U/L F 10.0-49.0 Aspartate aminotransferase [Enzymatic activity/volume] in Serum or Plasma 2025-03-04 13:58:09 11 U/L F 0.0-33.0 Chloride [Moles/volume] in Serum or Plasma 2025-02-05 01:36:16 93 mEq/L F 98.0-107.0 Alanine aminotransferase [Enzymatic activity/volume] in Serum or Plasma 2025-02-04 13:44:24 9 U/L F 10.0-49.0 Aspartate aminotransferase [Enzymatic activity/volume] in Serum or Plasma 2025-02-04 13:44:24 8 U/L F 0.0-33.0 Chloride [Moles/volume] in Serum or Plasma 2024-12-31 [...] Date Result/Unit Status Ref Range Result Comments Bacteria identified in Blood by Aerobe culture 2025-04-13 17:47:24 P MICROBIOLOGY - PRELIMINARY REPORT OF: 04/13/25 01:48 Bacteria identified in Blood by Anaerobe culture 2025-04-13 17:47:24 P MICROBIOLOGY - PRELIMINARY REPORT OF: 04/13/25 01:48 Bacteria identified in Blood by Anaerobe culture 2025-04-13 17:47:24 P MICROBIOLOGY - PRELIMINARY REPORT OF: 04/13/25 01:48 Bacteria identified in Blood by Aerobe culture 2025-04-13 17:47:24 P MICROBIOLOGY - PRELIMINARY REPORT OF: 04/13/25 01:48 Basophils/100 leukocytes in Blood by Automated count 2025-04-02 06:56:20 0.1 % F Neutrophils/100 leukocytes in Blood by Automated count 2025-04-02 06:56:20 58.9 % F Lymphocytes/100 leukocytes in Blood by Automated count 2025-04-02 06:56:20 16.5 % F Monocytes/100 leukocytes in Blood by Automated count 2025-04-02 06:56:20 10.9 % F Eosinophils/100 leukocytes in Blood by Automated count 2025-04-02 06:56:20 13.5 % F Leukocytes [#/volume] in Blood by Automated count 2025-04-02 06:56:20 4 x 10^3 cells/uL F 4.0-11.0 Neutrophils [#/volume] in Blood by Automated count 2025-04-02 06:56:20 2380 Cells/uL F 2000.0-8800. 0 Lymphocytes [#/volume] in Blood by Automated count 2025-04-02 06:56:20 667 Cells/uL F 620.0-3660.0 Monocytes [#/volume] in Blood by Automated count 2025-04-02 06:56:20 440 Cells/uL F 0.0-1100.0 Eosinophils [#/volume] in Blood by Automated count 2025-04-02 06:56:20 545 Cells/uL F 0.0-700.0 Basophils [#/volume] in Blood by Automated count 2025-04-02 06:56:20 4 Cells/uL F 0.0-400.0 Leukocytes [#/volume] in Blood by Automated count 2025-03-04 14:10:18 4.5 x 10^3 cells/uL F 4.0-11.0 Neutrophils/100 leukocytes in Blood by Automated count 2025-03-04 14:10:16 66.3 % F Basophils/100 leukocytes in Blood by Automated count 2025-03-04 14:10:16 0.4 % F Lymphocytes/100 leukocytes in Blood by Automated count 2025-03-04 14:10:16 15.6 % F Monocytes/100 leukocytes in Blood by Automated count 2025-03-04 14:10:16 8.4 % F Eosinophils/100 leukocytes in Blood by Automated count 2025-03-04 14:10:16 9.4 % F Neutrophils [#/volume] in Blood by Automated count 2025-03-04 14:10:16 2984 Cells/uL F 2000.0-8800. 0 Lymphocytes [#/volume] in Blood by Automated count 2025-03-04 14:10:16 702 Cells/uL F 620.0-3660.0 Monocytes [#/volume] in Blood by Automated count 2025-03-04 14:10:16 378 Cells/uL F 0.0-1100.0 Basophils [#/volume] in Blood by Automated count 2025-03-04 14:10:16 18 Cells/uL F 0.0-400.0 Eosinophils [#/volume] in Blood by Automated count 2025-03-04 14:10:16 423 Cells/uL F 0.0-700.0 Lymphocytes/100 leukocytes in Blood by Automated count 2025-02-04 15:42:09 12 % F Leukocytes [#/volume] in Blood by Automated count 2025-02-04 15:42:09 5.5 x 10^3 cells/uL F 4.0-11.0 Neutrophils [#/volume] in Blood by Automated count 2025-02-04 15:42:09 3872 Cells/uL F 2000.0-8800. 0 Lymphocytes [#/volume] in Blood by Automated count 2025-02-04 15:42:09 660 Cells/uL F 620.0-3660.0 Basophils/100 leukocytes in Blood by Automated count 2025-02-04 15:42:07 0.3 % F Neutrophils/100 leukocytes in Blood by Automated count 2025-02-04 15:42:07 70.4 % F Eosinophils/100 leukocytes in Blood by Automated count 2025-02-04 15:42:07 8.3 % F Monocytes/100 leukocytes in Blood by Automated count 2025-02-04 15:42:07 9 % F Monocytes [#/volume] in Blood by Automated count 2025-02-04 15:42:07 495 Cells/uL F 0.0-1100.0 Basophils [#/volume] in Blood by Automated count 2025-02-04 15:42:07 16 Cells/uL F 0.0-400.0 Eosinophils [#/volume] in Blood by Automated count 2025-02-04 15:42:07 456 Cells/uL F 0.0-700.0 Neutrophils/100 leukocytes in Blood by Automated count [...] Automated count 2024-12-31 16:47:15 4308 Cells/uL F 2000.0-8800. 0 Monocytes [#/volume] in Blood by Automated count 2024-12-31 16:47:15 459 Cells/uL F 0.0-1100.0 Basophils [#/volume] in Blood by Automated count 2024-12-31 16:47:15 43 Cells/uL F 0.0-400.0 Basophils/100 leukocytes in Blood by Automated count 2024-11-24 16:56:07 0.4 % F Lymphocytes/100 leukocytes in Blood by Automated count 2024-11-24 16:56:07 15 % F Monocytes/100 leukocytes in Blood by Automated count 2024-11-24 16:56:07 7.8 % F Monocytes [#/volume] in Blood by Automated count 2024-11-24 16:56:07 368 Cells/uL F 0.0-1100.0 Neutrophils [#/volume] in Blood by Automated count 2024-11-24 16:56:07 3224 Cells/uL F 2000.0-8800. 0 Basophils [#/volume] in Blood by Automated count 2024-11-24 16:56:07 19 Cells/uL F 0.0-400.0 Eosinophils [#/volume] in Blood by Automated count 2024-11-24 16:56:07 401 Cells/uL F 0.0-700.0 Neutrophils/100 leukocytes in Blood by Automated count 2024-11-24 16:56:07 68.3 % F Eosinophils/100 leukocytes in Blood by Automated count 2024-11-24 16:56:07 8.5 % F Leukocytes [#/volume] in Blood by Automated count 2024-11-24 16:56:07 4.7 x 10^3 cells/uL F 4.0-11.0 Lymphocytes [#/volume] in Blood by Automated count 2024-11-24 16:56:07 708 Cells/uL F 620.0-3660.0 MineralBone Disorder Description Draw Date Result/Unit Status Ref Range Result Comments CA CORRECTED 2025-04-07 06:46:48 9.7 mg/dL F Calcium [Mass/volume] in Serum or Plasma 2025-04-07 06:38:08 9.7 mg/dL F 8.7-10.4 CA CORRECTED 2025-04-02 08:22:00 10 mg/dL F CA/PHOS PRODUCT 2025-04-02 08:18:52 60 Calc F 21.0-53.0 CA*PO4 CORRCTD 2025-04-02 08:18:52 60 Calc F 21.0-53.0 Calcium [Mass/volume] in Serum or Plasma 2025-04-02 07:30:41 10 mg/dL F 8.7-10.4 Alkaline phosphatase [Enzymatic activity/volume] in Serum or Plasma 2025-04-01 23:10:20 121 U/L F 46.0-116.0 Phosphate [Mass/volume] in Serum or Plasma 2025-04-01 23:10:20 6 mg/dL F 2.4-5.1 Parathyrin.intact [Mass/volume] in Serum or Plasma 2025-04-01 19:43:23 207 pg/mL F 18.0-80.0 CA CORRECTED 2025-03-18 22:43:40 10.8 mg/dL F Calcium [Mass/volume] in Serum or Plasma 2025-03-18 22:37:12 10.8 mg/dL F 8.7-10.4 CA CORRECTED 2025-03-04 17:05:37 10.7 mg/dL F CA/PHOS PRODUCT 2025-03-04 17:02:43 50.3 Calc F 21.0-53.0 CA*PO4 CORRCTD 2025-03-04 17:02:43 50.3 Calc F 21.0-53.0 Calcium [Mass/volume] in Serum or Plasma 2025-03-04 16:59:42 10.7 mg/dL F 8.7-10.4 Parathyrin.intact [Mass/volume] in Serum or Plasma 2025-03-04 15:57:20 89 pg/mL F 18.0-80.0 Alkaline phosphatase [Enzymatic activity/volume] in Serum or Plasma 2025-03-04 13:58:09 116 U/L F 46.0-116.0 Phosphate [Mass/volume] in Serum or Plasma 2025-03-04 13:58:09 4.7 mg/dL F 2.4-5.1 CA CORRECTED 2025-02-05 01:43:20 9.9 mg/dL F CA/PHOS PRODUCT 2025-02-05 01:40:12 77.2 Calc F 21.0-53.0 CA*PO4 CORRCTD 2025-02-05 01:40:12 77.2 Calc F 21.0-53.0 Calcium [Mass/volume] in Serum or Plasma 2025-02-05 01:36:16 9.9 mg/dL F 8.7-10.4 Parathyrin.intact [Mass/volume] in Serum or Plasma 2025-02-04 14:08:15 227 pg/mL F 18.0-80.0 Alkaline phosphatase [Enzymatic activity/volume] in Serum or Plasma 2025-02-04 13:44:22 132 U/L F 46.0-116.0 Phosphate [Mass/volume] in Serum or Plasma 2025-02-04 13:44:22 7.8 mg/dL F 2.4-5.1 CA CORRECTED 2024-12-31 23:29:13 9.4 mg/dL F [...] Comments Potassium [Moles/volume] in Serum or Plasma 2025-04-02 07:30:41 4.6 mEq/L F 3.5-5.1 A/G RATIO 2025-04-01 23:11:07 1.3 Calc F 1.0-2.5 GLOBULIN 2025-04-01 23:11:07 3.1 g/dL F 0.9-5.0 Albumin [Mass/volume] in Serum or Plasma by Bromocresol green (BCG) dye binding method 2025-04-01 23:10:20 4 g/dL F 3.2-4.8 Bicarbonate [Moles/volume] in Serum or Plasma 2025-04-01 23:10:20 29 mEq/L F 20.0-31.0 Lactate dehydrogenase [Enzymatic activity/volume] in Serum or Plasma 2025-04-01 23:10:20 161 U/L F 120.0-246.0 Protein [Mass/volume] in Serum or Plasma 2025-04-01 23:10:20 7.1 g/dL F 5.7-8.2 Potassium [Moles/volume] in Serum or Plasma 2025-03-04 16:59:42 5.4 mEq/L F 3.5-5.1 A/G RATIO 2025-03-04 13:59:00 1.3 Calc F 1.0-2.5 GLOBULIN 2025-03-04 13:59:00 3 g/dL F 0.9-5.0 Albumin [Mass/volume] in Serum or Plasma by Bromocresol green (BCG) dye binding method 2025-03-04 13:58:09 4 g/dL F 3.2-4.8 Bicarbonate [Moles/volume] in Serum or Plasma 2025-03-04 13:58:09 26 mEq/L F 20.0-31.0 Lactate dehydrogenase [Enzymatic activity/volume] in Serum or Plasma 2025-03-04 13:58:09 161 U/L F 120.0-246.0 Protein [Mass/volume] in Serum or Plasma 2025-03-04 13:58:09 7 g/dL F 5.7-8.2 Potassium [Moles/volume] in Serum or Plasma 2025-02-05 01:36:16 6.4 mEq/L F 3.5-5.1 GLOBULIN 2025-02-04 13:45:09 3 g/dL F 0.9-5.0 A/G RATIO 2025-02-04 13:45:09 1.3 Calc F 1.0-2.5 Albumin [Mass/volume] in Serum or Plasma by Bromocresol green (BCG) dye binding method 2025-02-04 13:44:22 4 g/dL F 3.2-4.8 Bicarbonate [Moles/volume] in Serum or Plasma 2025-02-04 13:44:22 25 mEq/L F 20.0-31.0 Lactate dehydrogenase [Enzymatic activity/volume] in Serum or Plasma 2025-02-04 13:44:22 141 U/L F 120.0-246.0 Protein [Mass/volume] in Serum or Plasma 2025-02-04 13:44:22 7 g/dL F 5.7-8.2 Potassium [Moles/volume] in Serum or Plasma 2024-12-31 [...] RATIO 2024-11-24 16:29:33 2.7 Calc F 3.3-5.0 Albumin [Mass/volume] in Serum or Plasma by Bromocresol green (BCG) dye binding method 2024-11-24 16:28:20 4.4 g/dL F 3.4-4.8 Cholesterol [Mass/volume] in Serum or Plasma 2024-11-24 16:28:20 107 mg/dL F 0.0-199.0 Lactate dehydrogenase [Enzymatic activity/volume] in Serum or [...] Comments Refusal Reason Pneumococcal conjugate PCV20, polysaccharide INP176 conjugate, adjuvant, PF 2024-11-25 13:44:00 TST-PPD intradermal [...] Commen ts Diagnostic Test Pending [facility] Farnsworth 2023-12-08 05:00:00 Hemoglobin [Mass/volume] in Blood [code = 718-7] Diagnostic Test Pending [facility] Farnsworth 2024-11-19 05:00:00 Ferritin [Mass/volume] in Serum or Plasma [code = 2276-4] Diagnostic Test Pending [facility] Farnsworth 2023-04-21 05:00:00 Alanine aminotransferase [Enzymatic activity/volume] in Serum or Plasma [code = 1742-6] Diagnostic Test Pending [facility] Farnsworth 2022-09-24 06:00:00 Cobalamin (Vitamin B12) [Mass/volume] in Serum or Plasma [code = 2132-9] Diagnostic Test Pending [facility] 2022-09-24 06:00:00 Creatinine [Mass/volume] in Serum or Plasma [code = 2160-0] Diagnostic Test Pending [facility] 2022-11-19 05:00:00 Parathyrin.intact [Mass/volume] in Serum or Plasma [code = 2731-8] Diagnostic Test Pending [facility] 2022-09-24 06:00:00 Aluminum [Mass/volume] in Serum or Plasma [code = 5574-9] Diagnostic Test Pending [facility] 2022-09-24 06:00:00 25-Hydroxyvitamin D3+25-Hydroxyvitamin D2 [Mass/volume] in Serum or Plasma [code = 86915-1] Diagnostic Test Pending [facility] 2022-09-24 06:00:00 Sodium [Moles/volume] in Serum or Plasma [code = 2951-2] Diagnostic Test Pending [facility] 2022-09-24 06:00:00 Potassium [Moles/volume] in Serum or Plasma [code = 2823-3] Diagnostic Test Pending [facility] 2025-04-13 12:19:58 In-Center Hemodialysis Treatment [code = ANK374] Diagnostic Test Pending [facility] 2024-10-26 12:53:06 In-Center Hemodialysis Treatment [code = JRX316] Diet Order [facility] October 11, 2022 Diet Calorie 25 kcal/kg Fluid Value 1000 mL/d Phosphorus Value 1100 mg/d Potassium Value 3000 mg/d Protein Value 1.2 gm/kg Sodium Value 2000 mg/d Calculated Weight 90.4 kg dietary_diet_modification Carb Controlle d; [facility]14 05:00:00vancomycin hydrochloride [code = 09647]
--- NOTE | 2025-04-13 17:08 | ED.GENADULT ---
HPI - General Adult General Chief complaint: Unspecified <So Wade November, [employer]PERATOR - Last Filed: 04/14/25 19:50> Stated complaint: foot swelling, dialysis, on ground for five hrs <So Wade November, [employer] OPERATOR - Last Filed: 04/14/25 19:50> Time Seen by Provider: 04/13/25 17:08 <So Wade November, [employer] OPERATOR - Last Filed: 04/14/25 19:50> Focused HPI: Rj Cole is a 44 y/o with PMHX of ESRD, on HD MWF, htn who presents after ground level fall yesterday and was laying outside unable to get up for about 5 hours. Someone then helped him in the house at around 1500 and he has a skin tear to his right lower leg, increased swelling and blisters to his left foot. Denies hitting his head, no LOC GENERAL: appears chronically ill HEAD: Normocephalic, atraumatic. CHEST: Clear to auscultation. ?No respiratory distress. HEART: Regular rate and rhythm.? NEURO: ?Alert and oriented x3. Patient screened in triage and initial orders placed.? ?Additional care and disposition to be based upon?diagnostic testing and treatment. <So Wade November, [employer] OPERATOR - Last Filed: 04/14/25 19:50> Related Data Home medications: Home Medications ?Medication ?Instructions ?Recorded ?Confirmed ?Last Taken ?Type amlodipine 10 mg tablet 10 mg PO DAILY 11/11/24 04/14/25 04/13/25 History calcium acetate(phosphat bind) 667 667 mg PO QID 11/11/24 04/14/25 04/13/25 History mg capsule cyclobenzaprine 10 mg tablet 10 mg PO Q8H PRN restless leg(s) 11/11/24 04/14/25 11/11/24 History furosemide 80 mg tablet 80 mg PO Q12H 11/11/24 04/14/25 04/13/25 History hydralazine 50 mg tablet 50 mg PO TID 11/11/24 04/14/25 04/13/25 History metoprolol succinate 25 mg 12.5 mg PO DAILY 11/11/24 04/14/25 10/21/24 History tablet,extended release 24 hr ropinirole 0.25 mg tablet 0.25 mg PO HS 11/11/24 04/14/25 11/10/24 History rosuvastatin 10 mg tablet 10 mg PO HS 11/11/24 04/14/25 04/13/25 History <So Wade November, - Last Filed: 04/14/25 19:50> Allergies/adverse reactions: Allergies Allergy/AdvReac Type Severity Reaction Status Date / Time No Known Allergies Allergy Verified 04/13/25 17:21 <So Wade November, - Last Filed: 04/14/25 19:50> Review of Systems Review of Systems: All systems reviewed & are unremarkable except as noted in HPI and below <Allyson Narvaez PA-C - Last Filed: 04/14/25 01:24> [facility] Past Medical History Medical History: Medical History Coronary artery disease Anemia in chronic kidney disease Hyperlipidemia Hypertension End-stage renal disease on hemodialysis on transplant list at [facility] <So Wade November, - Last Filed: 04/14/25 19:50> Surgical History Surgical History: Surgical History History of cardiac catheterization (05/2024) History of coronary artery stent placement (05/2024) at [facility] Status post creation of arteriovenous fistula left upper extremity <So Sanchez - Last Filed: 04/14/25 19:50> Family History Family History: Family History Mother Acute myocardial infarction Father Acute myocardial infarction Sibling Diabetes mellitus <So Wade November, - Last Filed: 04/14/25 19:50> Social History Social History: Social History Social History: Surrogate medical decision maker: Virginia Bustamante, girlfriend. Code status: Full code. Years smoked: 23 Smoking status: Never smoker Tobacco type: cigars Smoking end date: 09/20/23 Alcohol intake: never Substance use: never Substance use type: marijuana Do You Feel Safe in your Home?: Yes Lack of Transportation: No Lack of Food: Often True Current Housing: I Have Housing Concerned About Future Housing: YES Difficulty Paying Gas/Electric Bills: Decline to Answer Difficulty Paying for Meds: No Currently Unemployed: No Education: High School Diploma/GED Difficulty w/ Childcare or Family Care: No Additional living arrangements comments: Lives with girlfriend. Additional occupation/education comments: Disabled. Spiritual care concerns: No <So Sanchez APRN - Last Filed: 04/14/25 19:50> Exam Narrative: GENERAL: Well-appearing, well-nourished, and in no acute distress. HEAD: Normocephalic, atraumatic. EYES: EOMI. CHEST: Clear to auscultation. No respiratory distress. No wheezes rales or rhonchi HEART: Regular rate and rhythm. No murmur heard. Normal peripheral pulses. EXTREMITIES: Normal range of motion. Severe edema with overlying redness to the left foot which is warm. Scattered blisters to the foot. Blister under the great toe is draining. Normal DP pulse. Swelling extending into the lower leg without overlying redness SKIN: Warm, dry, no rash. NEURO: No focal deficits. Alert and oriented x3. PSYCH: Normal mood and affect <Allyson Narvaez PA-C - Last Filed: 04/14/25 01:24> Course Course Emergency Course: patient and family updated on workup and need for admission <Allyson Narvaez PA-C - Last Filed: 04/14/25 01:24> PROCESS MAINTENANCE TECHNICIAN/PA Physician Supervision This visit was performed by both a physician and an APC. I performed all aspects of the MDM as documented. <Bhargav Mays MD - Last Filed: 04/14/25 06:58> Consultations Consultation #1: Spoke with Dr. Moore who will consult <Allyson Narvaez PA-C - Last Filed: 04/14/25 01:24> Date: 04/13/25 <Allyson Narvaez PA-C - Last Filed: 04/14/25 01:24> Consultation #2: Spoke with hospitalist about patient and workup who accepts admission <Allyson Narvaez PA-C - Last Filed: 04/14/25 01:24> Date: 04/14/25 <Allyson Narvaez PA-C - Last Filed: 04/14/25 01:24> Vital Signs Vital signs: Vital Signs Temperature 37.3 C 04/13/25 17:16 Pulse Rate 93 04/13/25 17:16 Respiratory Rate 17 04/13/25 17:16 Blood Pressure 135/63 04/13/25 17:16 Pulse Oximetry 98 04/13/25 17:16 Oxygen Delivery Room Air 04/13/25 17:16 Temperature 36.8 C 04/14/25 17:43 Pulse Rate 85 04/14/25 17:43 Respiratory Rate 16 04/14/25 17:43 Blood Pressure 151/67 H 04/14/25 17:43 Pulse Oximetry 97 04/14/25 17:43 Oxygen Delivery Room Air 04/14/25 08:00 <So Sanchez, [employer] OPERATOR - Last Filed: 04/14/25 19:50> Vital Signs Temperature 37.3 C 04/13/25 17:16 Pulse Rate 93 04/13/25 17:16 Respiratory Rate 17 04/13/25 17:16 Blood Pressure 135/63 04/13/25 17:16 Pulse Oximetry 98 04/13/25 17:16 Oxygen Delivery Room Air 04/13/25 17:16 Temperature 36.8 C 04/14/25 17:43 Pulse Rate 85 04/14/25 17:43 Respiratory Rate 16 04/14/25 17:43 Blood Pressure 151/67 H 04/14/25 17:43 Pulse Oximetry 97 04/14/25 17:43 Oxygen Delivery Room Air 04/14/25 08:00 <Allyson Narvaez PA-C - Last Filed: 04/14/25 01:24> Vital Signs Temperature 37.3 C 04/13/25 17:16 Pulse Rate 93 04/13/25 17:16 Respiratory Rate 17 04/13/25 17:16 Blood Pressure 135/63 04/13/25 17:16 Pulse Oximetry 98 04/13/25 17:16 Oxygen Delivery Room Air 04/13/25 17:16 Temperature 36.8 C 04/14/25 17:43 Pulse Rate 85 04/14/25 17:43 Respiratory Rate 16 04/14/25 17:43 Blood Pressure 151/67 H 04/14/25 17:43 Pulse Oximetry 97 04/14/25 17:43 Oxygen Delivery Room Air 04/14/25 08:00 <Bhargav Mays MD - Last Filed: 04/14/25 06:58> Medical Decision Making MDM Narrative Medical decision making narrative: Patient presents to the ER for redness, swelling, blistering to the left foot.Patient is afebrile and nontoxic appearing. His vitals are stable. CBC with leukocytosis to 14.3. Inflammatory markers are quite elevated. Lactic acid is not elevated. Metabolic panel with evidence of patient's end-stage renal disease. Patient reporting a fall yesterday. CT brain without acute intracranial findings. Foot x-ray showing infection versus fracture. CT obtained for further evaluation. Showing abscess, osteomyelitis. Blood cultures drawn, patient started on IV antibiotics. Left lower extremity venous Doppler without evidence of DVT in the left peroneal and posterior tibial veins. Patient started on heparin drip. Spoke with Dr. Moore who will consult. Spoke with hospitalist about patient and workup who accepts admission <Allyson Narvaez PA-C - Last Filed: 04/14/25 01:24> Differential Diagnosis Differential Diagnosis: Osteomyelitis, cellulitis, DVT, abscess <Allyson Narvaez PA-C - Last Filed: 04/14/25 01:24> Vital Signs Vital Signs: Vital Signs Temperature 37.3 C 04/13/25 17:16 Pulse Rate 93 04/13/25 17:16 Respiratory Rate 17 04/13/25 17:16 Blood Pressure 135/63 04/13/25 17:16 Pulse Oximetry 98 04/13/25 17:16 Oxygen Delivery Room Air 04/13/25 17:16 Temperature 36.8 C 04/14/25 17:43 Pulse Rate 85 04/14/25 17:43 Respiratory Rate 16 04/14/25 17:43 Blood Pressure 151/67 H 04/14/25 17:43 Pulse Oximetry 97 04/14/25 17:43 Oxygen Delivery Room Air 04/14/25 08:00 <So Sanchez APRN - Last Filed: 04/14/25 19:50> Vital Signs Temperature 37.3 C 04/13/25 17:16 Pulse Rate 93 04/13/25 17:16 Respiratory Rate 17 04/13/25 17:16 Blood Pressure 135/63 04/13/25 17:16 Pulse Oximetry 98 04/13/25 17:16 Oxygen Delivery Room Air 04/13/25 17:16 Temperature 36.8 C 04/14/25 17:43 Pulse Rate 85 04/14/25 17:43 Respiratory Rate 16 04/14/25 17:43 Blood Pressure 151/67 H 04/14/25 17:43 Pulse Oximetry 97 04/14/25 17:43 Oxygen Delivery Room Air 04/14/25 08:00 <Allyson Narvaez PA-C - Last Filed: 04/14/25 01:24> Vital Signs Temperature 37.3 C 04/13/25 17:16 Pulse Rate 93 04/13/25 17:16 Respiratory Rate 17 04/13/25 17:16 Blood Pressure 135/63 04/13/25 17:16 Pulse Oximetry 98 04/13/25 17:16 Oxygen Delivery Room Air 04/13/25 17:16 Temperature 36.8 C 04/14/25 17:43 Pulse Rate 85 04/14/25 17:43 Respiratory Rate 16 04/14/25 17:43 Blood Pressure 151/67 H 04/14/25 17:43 Pulse Oximetry 97 04/14/25 17:43 Oxygen Delivery Room Air 04/14/25 08:00 <Bhargav Mays MD - Last Filed: 04/14/25 06:58> Lab Data Lab results reviewed: Yes I reviewed the patient's lab results. <Allyson Narvaez PA-C - Last Filed: 04/14/25 01:24> Result diagrams: 04/14/25 05:47 04/14/25 05:47 <So Sanchez APRN - Last Filed: 04/14/25 19:50> Labs: Lab Results 04/13/25 04/14/25 04/14/25 Range/Units 20:34 01:59 05:47 WBC 14.3 H 14.4 H (4.5-10.0) K/mm3 RBC 3.44 L 3.04 L (4.6-6.20) M/mm3 Hgb 10.7 L 9.4 L (14.0-18.0) g/dL Hct 33.9 L 30.3 L (42.0-52.0) % MCV 98.5 99.7 (80-100) fl MCH 31.1 30.9 (26-34) pg MCHC 31.6 L 31.0 L (32-36) g/dl RDW 15.5 H 15.6 H (11.5-14.5) % Plt Count 186 171 (150-375) k/mm3 MPV 10.3 10.7 H (7.4-10.4) fl Immature Gran % (Auto) Not Reportable Not Reportable Neut % (Auto) Not Reportable Not Reportable Lymph % (Auto) Not Reportable Not Reportable [place] % (Auto) Not Reportable Not Reportable Eos % (Auto) Not Reportable Not Reportable Baso % (Auto) Not Reportable Not Reportable Lymph # (Auto) Not Reportable Not Reportable [place] # (Auto) Not Reportable Not Reportable Eos # (Auto) Not Reportable Not Reportable Baso # (Auto) Not Reportable Not Reportable Abs Immat Gran (auto) Not Reportable Not Reportable Absolute Neuts (auto) Not Reportable Not Reportable Absolute Nucleated RBC Not Reportable Not Reportable Total Counted 100 100 Neutrophils % (Manual) 82 H 42 L (46-73) % Band Neutrophils % 6 46 H (0-6) % Lymphocytes % (Manual) 2 L 3 L (18-44) % Monocytes % (Manual) 10 H 4 (3-9) % Eosinophils % (Manual) 1 (0-4) % Metamyelocytes % 3 % Myelocytes % 1 % Nucleated RBC % Not Reportable Not Reportable Abs Neuts (Manual) 12.58 H 12.67 H (1.3-6.7) K/mm3 Abs Lymphs (Manual) 0.28 L 0.43 L (1.1-4.5) K/mm3 Abs Monocytes (Manual) 1.43 H 0.57 (0.1-0.90) K/mm3 Absolute Eos (Manual) 0.14 (0.02-0.50) K/mm3 Atypical Lymphocytes Present Dohle Bodies Present Platelet Estimate Adequate Adequate (Adequate) Large Platelets Present Hypochromasia 1+ 1+ Anisocytosis 1+ Ovalocytes 1+ Raven Cells 1+ Schistocytes None seen None seen ESR 114 H (0-20) mm/hr PT 16.1 H (11.1-14.7) Seconds INR 1.3 APTT 36.8 (22.3-36.8) Seconds Sodium 128 L 126 L (137-145) mmol/L Potassium 4.3 4.3 (3.4-5.0) mmol/L Chloride 85 L 87 L (98-107) mmol/L Carbon Dioxide 32 H 29 (22-30) mmol/L Anion Gap 11 10 (4-12) mmol/L BUN 62 H D 70 H (9-20) mg/dL Creatinine 8.41 H 7.20 H (0.7-1.3) mg/dL Estim Creat Clear Calc Not Reportable 14 Estimated GFR 7 L 8 L (59 - ) Glucose 145 H 116 H (65-110) mg/dL Lactic Acid 1.7 (0.7-2.0) mmol/L Calcium 10.6 H 9.8 (8.4-10.2) mg/dL Phosphorus 3.4 (2.5-4.5) mg/dL Magnesium 2.7 H (1.6-2.3) mg/dL Total Bilirubin 3.0 H (0.2-1.3) mg/dL AST 41 (17-59) U/L ALT 19 (6-50) U/L Alkaline Phosphatase 227 H (38-126) U/L Total Creatine Kinase 86 (55-170) U/L C-Reactive Protein > 45.0 H (<1.0) mg/dL Total Protein 8.1 (6.3-8.2) g/dL Albumin 3.5 (3.5-5.1) g/dL Nasal MRSA (PCR) Not detected (NOT DETECTE) Hep Bs Antigen (Negative) Hep Bs Antibody 04/14/25 Range/Units 06:20 WBC (4.5-10.0) K/mm3 RBC (4.6-6.20) M/mm3 Hgb (14.0-18.0) g/dL Hct (42.0-52.0) % MCV (80-100) fl MCH (26-34) pg MCHC (32-36) g/dl RDW (11.5-14.5) % Plt Count (150-375) k/mm3 MPV (7.4-10.4) fl Immature Gran % (Auto) Neut % (Auto) Lymph % (Auto) [place] % (Auto) Eos % (Auto) Baso % (Auto) Lymph # (Auto) [place] # (Auto) Eos # (Auto) Baso # (Auto) Abs Immat Gran (auto) Absolute Neuts (auto) Absolute Nucleated RBC Total Counted Neutrophils % (Manual) (46-73) % Band Neutrophils % (0-6) % Lymphocytes % (Manual) (18-44) % Monocytes % (Manual) (3-9) % Eosinophils % (Manual) (0-4) % Metamyelocytes % % Myelocytes % % Nucleated RBC % Abs Neuts (Manual) (1.3-6.7) K/mm3 Abs Lymphs (Manual) (1.1-4.5) K/mm3 Abs Monocytes (Manual) (0.1-0.90) K/mm3 Absolute Eos (Manual) (0.02-0.50) K/mm3 Atypical Lymphocytes Dohle Bodies Platelet Estimate (Adequate) Large Platelets Hypochromasia Anisocytosis Ovalocytes Raven Cells Schistocytes ESR (0-20) mm/hr PT (11.1-14.7) Seconds INR APTT (22.3-36.8) Seconds Sodium (137-145) mmol/L Potassium (3.4-5.0) mmol/L Chloride (98-107) mmol/L Carbon Dioxide (22-30) mmol/L Anion Gap (4-12) mmol/L BUN (9-20) mg/dL Creatinine (0.7-1.3) mg/dL Estim Creat Clear Calc Estimated GFR (59 - ) Glucose (65-110) mg/dL Lactic Acid (0.7-2.0) mmol/L Calcium (8.4-10.2) mg/dL Phosphorus (2.5-4.5) mg/dL Magnesium (1.6-2.3) mg/dL Total Bilirubin (0.2-1.3) mg/dL AST (17-59) U/L ALT (6-50) U/L Alkaline Phosphatase (38-126) U/L Total Creatine Kinase (55-170) U/L C-Reactive Protein (<1.0) mg/dL Total Protein (6.3-8.2) g/dL Albumin (3.5-5.1) g/dL Nasal MRSA (PCR) (NOT DETECTE) Hep Bs Antigen Negative (Negative) Hep Bs Antibody Indeterminate <So FlipMarco Antonio November, [employer]LE[employer] OPERATOR - Last Filed: 04/14/25 19:50> Lab Results 04/13/25 04/14/25 04/14/25 Range/Units 20:34 01:59 05:47 WBC 14.3 H 14.4 H (4.5-10.0) K/mm3 RBC 3.44 L 3.04 L (4.6-6.20) M/mm3 Hgb 10.7 L 9.4 L (14.0-18.0) g/dL Hct 33.9 L 30.3 L (42.0-52.0) % MCV 98.5 99.7 (80-100) fl MCH 31.1 30.9 (26-34) pg MCHC 31.6 L 31.0 L (32-36) g/dl RDW 15.5 H 15.6 H (11.5-14.5) % Plt Count 186 171 (150-375) k/mm3 MPV 10.3 10.7 H (7.4-10.4) fl Immature Gran % (Auto) Not Reportable Not Reportable Neut % (Auto) Not Reportable Not Reportable Lymph % (Auto) Not Reportable Not Reportable [place] % (Auto) Not Reportable Not Reportable Eos % (Auto) Not Reportable Not Reportable Baso % (Auto) Not Reportable Not Reportable Lymph # (Auto) Not Reportable Not Reportable [place] # (Auto) Not Reportable Not Reportable Eos # (Auto) Not Reportable Not Reportable Baso # (Auto) Not Reportable Not Reportable Abs Immat Gran (auto) Not Reportable Not Reportable Absolute Neuts (auto) Not Reportable Not Reportable Absolute Nucleated RBC Not Reportable Not Reportable Total Counted 100 100 Neutrophils % (Manual) 82 H 42 L (46-73) % Band Neutrophils % 6 46 H (0-6) % Lymphocytes % (Manual) 2 L 3 L (18-44) % Monocytes % (Manual) 10 H 4 (3-9) % Eosinophils % (Manual) 1 (0-4) % Metamyelocytes % 3 % Myelocytes % 1 % Nucleated RBC % Not Reportable Not Reportable Abs Neuts (Manual) 12.58 H 12.67 H (1.3-6.7) K/mm3 Abs Lymphs (Manual) 0.28 L 0.43 L (1.1-4.5) K/mm3 Abs Monocytes (Manual) 1.43 H 0.57 (0.1-0.90) K/mm3 Absolute Eos (Manual) 0.14 (0.02-0.50) K/mm3 Atypical Lymphocytes Present Dohle Bodies Present Platelet Estimate Adequate Adequate (Adequate) Large Platelets Present Hypochromasia 1+ 1+ Anisocytosis 1+ Ovalocytes 1+ Raven Cells 1+ Schistocytes None seen None seen ESR 114 H (0-20) mm/hr PT 16.1 H (11.1-14.7) Seconds INR 1.3 APTT 36.8 (22.3-36.8) Seconds Sodium 128 L 126 L (137-145) mmol/L Potassium 4.3 4.3 (3.4-5.0) mmol/L Chloride 85 L 87 L (98-107) mmol/L Carbon Dioxide 32 H 29 (22-30) mmol/L Anion Gap 11 10 (4-12) mmol/L BUN 62 H D 70 H (9-20) mg/dL Creatinine 8.41 H 7.20 H (0.7-1.3) mg/dL Estim Creat Clear Calc Not Reportable 14 Estimated GFR 7 L 8 L (59 - ) Glucose 145 H 116 H (65-110) mg/dL Lactic Acid 1.7 (0.7-2.0) mmol/L Calcium 10.6 H 9.8 (8.4-10.2) mg/dL Phosphorus 3.4 (2.5-4.5) mg/dL Magnesium 2.7 H (1.6-2.3) mg/dL Total Bilirubin 3.0 H (0.2-1.3) mg/dL AST 41 (17-59) U/L ALT 19 (6-50) U/L Alkaline Phosphatase 227 H (38-126) U/L Total Creatine Kinase 86 (55-170) U/L C-Reactive Protein > 45.0 H (<1.0) mg/dL Total Protein 8.1 (6.3-8.2) g/dL Albumin 3.5 (3.5-5.1) g/dL Nasal MRSA (PCR) Not detected (NOT DETECTE) Hep Bs Antigen (Negative) Hep Bs Antibody 04/14/25 Range/Units 06:20 WBC (4.5-10.0) K/mm3 RBC (4.6-6.20) M/mm3 Hgb (14.0-18.0) g/dL Hct (42.0-52.0) % MCV (80-100) fl MCH (26-34) pg MCHC (32-36) g/dl RDW (11.5-14.5) % Plt Count (150-375) k/mm3 MPV (7.4-10.4) fl Immature Gran % (Auto) Neut % (Auto) Lymph % (Auto) [place] % (Auto) Eos % (Auto) Baso % (Auto) Lymph # (Auto) [place] # (Auto) Eos # (Auto) Baso # (Auto) Abs Immat Gran (auto) Absolute Neuts (auto) Absolute Nucleated RBC Total Counted Neutrophils % (Manual) (46-73) % Band Neutrophils % (0-6) % Lymphocytes % (Manual) (18-44) % Monocytes % (Manual) (3-9) % Eosinophils % (Manual) (0-4) % Metamyelocytes % % Myelocytes % % Nucleated RBC % Abs Neuts (Manual) (1.3-6.7) K/mm3 Abs Lymphs (Manual) (1.1-4.5) K/mm3 Abs Monocytes (Manual) (0.1-0.90) K/mm3 Absolute Eos (Manual) (0.02-0.50) K/mm3 Atypical Lymphocytes Dohle Bodies Platelet Estimate (Adequate) Large Platelets Hypochromasia Anisocytosis Ovalocytes Raven Cells Schistocytes ESR (0-20) mm/hr PT (11.1-14.7) Seconds INR APTT (22.3-36.8) Seconds Sodium (137-145) mmol/L Potassium (3.4-5.0) mmol/L Chloride (98-107) mmol/L Carbon Dioxide (22-30) mmol/L Anion Gap (4-12) mmol/L BUN (9-20) mg/dL Creatinine (0.7-1.3) mg/dL Estim Creat Clear Calc Estimated GFR (59 - ) Glucose (65-110) mg/dL Lactic Acid (0.7-2.0) mmol/L Calcium (8.4-10.2) mg/dL Phosphorus (2.5-4.5) mg/dL Magnesium (1.6-2.3) mg/dL Total Bilirubin (0.2-1.3) mg/dL AST (17-59) U/L ALT (6-50) U/L Alkaline Phosphatase (38-126) U/L Total Creatine Kinase (55-170) U/L C-Reactive Protein (<1.0) mg/dL Total Protein (6.3-8.2) g/dL Albumin (3.5-5.1) g/dL Nasal MRSA (PCR) (NOT DETECTE) Hep Bs Antigen Negative (Negative) Hep Bs Antibody Indeterminate <Allyson Narvaez PA-C - Last Filed: 04/14/25 01:24> Lab Results 04/13/25 04/14/25 04/14/25 Range/Units 20:34 01:59 05:47 WBC 14.3 H 14.4 H (4.5-10.0) K/mm3 RBC 3.44 L 3.04 L (4.6-6.20) M/mm3 Hgb 10.7 L 9.4 L (14.0-18.0) g/dL Hct 33.9 L 30.3 L (42.0-52.0) % MCV 98.5 99.7 (80-100) fl MCH 31.1 30.9 (26-34) pg MCHC 31.6 L 31.0 L (32-36) g/dl RDW 15.5 H 15.6 H (11.5-14.5) % Plt Count 186 171 (150-375) k/mm3 MPV 10.3 10.7 H (7.4-10.4) fl Immature Gran % (Auto) Not Reportable Not Reportable Neut % (Auto) Not Reportable Not Reportable Lymph % (Auto) Not Reportable Not Reportable [place] % (Auto) Not Reportable Not Reportable Eos % (Auto) Not Reportable Not Reportable Baso % (Auto) Not Reportable Not Reportable Lymph # (Auto) Not Reportable Not Reportable [place] # (Auto) Not Reportable Not Reportable Eos # (Auto) Not Reportable Not Reportable Baso # (Auto) Not Reportable Not Reportable Abs Immat Gran (auto) Not Reportable Not Reportable Absolute Neuts (auto) Not Reportable Not Reportable Absolute Nucleated RBC Not Reportable Not Reportable Total Counted 100 100 Neutrophils % (Manual) 82 H 42 L (46-73) % Band Neutrophils % 6 46 H (0-6) % Lymphocytes % (Manual) 2 L 3 L (18-44) % Monocytes % (Manual) 10 H 4 (3-9) % Eosinophils % (Manual) 1 (0-4) % Metamyelocytes % 3 % Myelocytes % 1 % Nucleated RBC % Not Reportable Not Reportable Abs Neuts (Manual) 12.58 H 12.67 H (1.3-6.7) K/mm3 Abs Lymphs (Manual) 0.28 L 0.43 L (1.1-4.5) K/mm3 Abs Monocytes (Manual) 1.43 H 0.57 (0.1-0.90) K/mm3 Absolute Eos (Manual) 0.14 (0.02-0.50) K/mm3 Atypical Lymphocytes Present Dohle Bodies Present Platelet Estimate Adequate Adequate (Adequate) Large Platelets Present Hypochromasia 1+ 1+ Anisocytosis 1+ Ovalocytes 1+ Lele Cells 1+ Schistocytes None seen None seen ESR 114 H (0-20) mm/hr PT 16.1 H (11.1-14.7) Seconds INR 1.3 APTT 36.8 (22.3-36.8) Seconds Sodium 128 L 126 L (137-145) mmol/L Potassium 4.3 4.3 (3.4-5.0) mmol/L Chloride 85 L 87 L (98-107) mmol/L Carbon Dioxide 32 H 29 (22-30) mmol/L Anion Gap 11 10 (4-12) mmol/L BUN 62 H D 70 H (9-20) mg/dL Creatinine 8.41 H 7.20 H (0.7-1.3) mg/dL Estim Creat Clear Calc Not Reportable 14 Estimated GFR 7 L 8 L (59 - ) Glucose 145 H 116 H (65-110) mg/dL Lactic Acid 1.7 (0.7-2.0) mmol/L Calcium 10.6 H 9.8 (8.4-10.2) mg/dL Phosphorus 3.4 (2.5-4.5) mg/dL Magnesium 2.7 H (1.6-2.3) mg/dL Total Bilirubin 3.0 H (0.2-1.3) mg/dL AST 41 (17-59) U/L ALT 19 (6-50) U/L Alkaline Phosphatase 227 H (38-126) U/L Total Creatine Kinase 86 (55-170) U/L C-Reactive Protein > 45.0 H (<1.0) mg/dL Total Protein 8.1 (6.3-8.2) g/dL Albumin 3.5 (3.5-5.1) g/dL Nasal MRSA (PCR) Not detected (NOT DETECTE) Hep Bs Antigen (Negative) Hep Bs Antibody 04/14/25 Range/Units 06:20 WBC (4.5-10.0) K/mm3 RBC (4.6-6.20) M/mm3 Hgb (14.0-18.0) g/dL Hct (42.0-52.0) % MCV (80-100) fl MCH (26-34) pg MCHC (32-36) g/dl RDW (11.5-14.5) % Plt Count (150-375) k/mm3 MPV (7.4-10.4) fl Immature Gran % (Auto) Neut % (Auto) Lymph % (Auto) [place] % (Auto) Eos % (Auto) Baso % (Auto) Lymph # (Auto) [place] # (Auto) Eos # (Auto) Baso # (Auto) Abs Immat Gran (auto) Absolute Neuts (auto) Absolute Nucleated RBC Total Counted Neutrophils % (Manual) (46-73) % Band Neutrophils % (0-6) % Lymphocytes % (Manual) (18-44) % Monocytes % (Manual) (3-9) % Eosinophils % (Manual) (0-4) % Metamyelocytes % % Myelocytes % % Nucleated RBC % Abs Neuts (Manual) (1.3-6.7) K/mm3 Abs Lymphs (Manual) (1.1-4.5) K/mm3 Abs Monocytes (Manual) (0.1-0.90) K/mm3 Absolute Eos (Manual) (0.02-0.50) K/mm3 Atypical Lymphocytes Dohle Bodies Platelet Estimate (Adequate) Large Platelets Hypochromasia Anisocytosis Ovalocytes Raven Cells Schistocytes ESR (0-20) mm/hr PT (11.1-14.7) Seconds INR APTT (22.3-36.8) Seconds Sodium (137-145) mmol/L Potassium (3.4-5.0) mmol/L Chloride (98-107) mmol/L Carbon Dioxide (22-30) mmol/L Anion Gap (4-12) mmol/L BUN (9-20) mg/dL Creatinine (0.7-1.3) mg/dL Estim Creat Clear Calc Estimated GFR (59 - ) Glucose (65-110) mg/dL Lactic Acid (0.7-2.0) mmol/L Calcium (8.4-10.2) mg/dL Phosphorus (2.5-4.5) mg/dL Magnesium (1.6-2.3) mg/dL Total Bilirubin (0.2-1.3) mg/dL AST (17-59) U/L ALT (6-50) U/L Alkaline Phosphatase (38-126) U/L Total Creatine Kinase (55-170) U/L C-Reactive Protein (<1.0) mg/dL Total Protein (6.3-8.2) g/dL Albumin (3.5-5.1) g/dL Nasal MRSA (PCR) (NOT DETECTE) Hep Bs Antigen Negative (Negative) Hep Bs Antibody Indeterminate <Bhargav Mays MD - Last Filed: 04/14/25 06:58> Imaging Data Radiologist's impression: ITS Impressions Tibia/Fibula X-Ray 04/13/25 17:52 IMPRESSION: 1: NO ACUTE BONE OR JOINT ABNORMALITY IDENTIFIED. Foot X-Ray 04/13/25 18:03 Impression: 1: Multiple fractures of the hindfoot and tarsal bones with associated displacement of the calcaneal fracture fragments as well as the navicular bone. These findings may be posttraumatic, although underlying infection should be considered in the appropriate clinical setting. Head CT 04/13/25 20:09 IMPRESSION: 1. No acute intracranial findings. Venous Doppler Study 04/13/25 21:59 IMPRESSION: 1: Deep venous thrombosis of the left peroneal and posterior tibial veins. Left lower extremity CT: Numerous areas of cortical destruction within the foot with surrounding abscess consistent with osteomyelitis. 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
[2025-04-13 17:16] VITALS: BP 135/63; PULSE 93; RESP 17; TEMP 37.3; O2SAT 98
--- OUTSIDE RECORDS SUMMARY | 2025-04-13 20:34 | XMS_ITS | Clinical Summary ---
Author Organization [facility] Address [address] [place] [address] Care Team Providers Care Socket Puller Name Role Phone Dallas Tejada MD Primary Care Provider Dallas Tejada MD Unavailable [phone] Naomi Kaye MD Unavailable [phone] Source Comments [facility],non-owned Affiliates and Associated Physician Practices is amultiple site organization consisting of ambulatory clinics and hospital sitesin [place], [place], [place] and [place]. This disclosure is being madepursuant to the Care Everywhere program and may not contain all information available regarding this patient. Last updated 18.[facility] [employer] Allergies No known active allergies Medications * Be aware that medications may not be up to date on this document. Alwaysverify current medications with the patient. vitamin D, ergocalciferol, (DRISDOL) 86426 units capsule Receives at DU 3 9 [...] to SDH Coronary artery disease invo lving [place] coronary artery of [place] heart with angina pectoris 05/25/2024 Nonobstructive [...] included. Rj Cole 1980 Listing date: Referring Security Supervisor: Sharon Farnsworth Dialysis Info: Type: HD M,W,F Time: 03/10/2019 Blood Type: O POS Body mass index is 31.65 kg/m . ALERTS: pt will need FLOmax post txp ALERTS: pt has been using midodrine prn on dialysis this December - January 2024 (BPs requested) Manager Cosmetics: pt seen by Dr. 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 Diabetes mellitus (HCC) dx at age [age] no leather stretcher, was on metformin x 1 week, diet controlled diarrhea Esophageal reflux ESRD on hemodialysis ([facility]) BEN ([facility]) [employer]andrpoint ON M, W, F 08/11/19 History of blood transfusion 2018 when found out kidney failure Hypertension dx at age 38 Kidney stones twice in his early 20s, passed on own Kidney trouble Neuropathy Oliguria PVD (peripheral vascular disease) ([facility]) c/o claudication sometimes but thinks it's bc he lives on [employer] DD Past Surgical History: Procedure Laterality Date A-V [...] teeth removed Renal Biopsy 2019 [facility] Retinal Detachment Repair Bilateral Social History Socioeconomic [...] phases of the transplant evaluation Present to [facility] for approval/denial/ versus more testing to [...] currently on MWF hemodialysis in [facility] 2) Cardiovascular Disease - Due to the risk of CAD in patients with ESKD, Cardiac Cath was performed on 05/26/20 which showed non obstructive Coronary artery disease. Medical management of nonobstructive CAD and aggressive modification of atherosclerotic risk factors is planned. - He will be due for a repeat [facility] next year according to protocol. 3) Hypertension [...] male with the following diagnoses presenting to [facility] for follow up/evaluation of Nonobstructive atherosclerosis of coronary artery [I25.10] Impression: Nonobstructive atherosclerosis of coronary artery (primary encounter diagnosis) Pre-transplant evaluation for kidney transplant Left ventricular hypertrophy Grade II diastolic dysfunction Moderate tricuspid regurgitation ESRD on hemodialysis ([facility]) Controlled type 2 diabetes mellitus with other specified complication, without long-term current use of insulin ([facility]) History of tobacco use NYHA [...] Takes midodrine on HD days if needed Security Supervisor : Sharon Farnsworth [facility] 05/2020 with nonobstructive CAD, mild disease in mLAD Never started on statin therapy, LDL 70 12/2023 ASCVD: CT Calcium (as part of stress test) 02/06/2024 with calcium score in the left main artery 302.4, LAD of 574.0, LCX 53.4and VNY8749.6. HTN + DMT2 history with end organ [...] corrective surgery, ESRD on HD, nonobstructive CAD ([facility] 05/2020), HLD, BPH, RLS, history of tobacco use. He was last seen in the [facility] by Dr Garg on [...] artery 302.4, LAD of 574.0, LCX 53.4and XAD0351.6. Total calcium score is 2473.4. According to [...] ventricle. > Dictated by Rosy Florian MD (Notching Press Operator) 02/06/2024 11:30 AM I, Carter Mcgregor MD [...] evidence of ischemia at achieved workload. Catherization [facility] 05/25/2020 HEMODYNAMIC FINDINGS: LV:148/28 mm Hg AO: [...] ascites and mesenteric/ retroperitoneal stranding/edema. Trenton Shaw, SUPERVISOR FABRICATION AND ASSEMBLY-SCHOOL TRAFFIC GUARD Pertinent Previous Committee Presentations: [facility] notes: 05/10/2022 Committee Discussion Details: Pt's case presented at [facility] today to discuss his candidacy for [...] 44) LV RWT 0.402 LV mass 2D 357.61439822334556 g (Range: 96 - 200) LV mass [...] artery 302.4, LAD of 574.0, LCX 53.4and [id number]. Total calcium score is 2473.4. According to [...] artery 302.4, LAD of 574.0, LCX 53.4and UBT7274.6. Total calcium score is 2473.4. According to [...] or text me on my cell phone [phone]. I appreciate the opportunity to participate in the care of your patient and look forward to being of service in the future as well. Sincerely, Jose Cedillo MD, PhD, [facility]: 05/25/2020 (completed given length of time [...] mesenteric/retroperitoneal stranding/edema. ABIs: 01/07/2024 [facility]01/07/2024 INDINGS: A sandblast or shotblast equipment tender radiograph remarkable, other than calcification of iliac [...] Impression: It is the impression of this director of social media marketing that Rj Cole has several positive factors for Kidney from a psychosocial perspective. Patient appears to have appropriate knowledge of illness. Patient has sufficient insurance coverage and stable financial situation for post transplant needs. No concerns regarding substance abuse, legal issues, or mental health needs. Patient has adequate support system and appropriate discharge plan. Plan: therapeutic activities services worker to provide supportive services as needed. Patient appears to be a reasonable candidate for transplant from a psychosocial perspective. -Post transplant arrangement forms are needed prior to being listed. Psychiatric Consult Recommended: No Transplant Marble Cutter Operator: Katherine Joaquin LMSW Abdominal Transplant Marble Cutter Operator [phone] REGIONAL TRAINER Forms: Transplant Caregiver Confirmation Note Caregiver Confirmation Date Primary Name of Primary: Virginia Relationship: girlfriend - REGIONAL TRAINER form received on 01/21/24 - Confirmed via telephone on 01/27/24 Secondary Name of Secondary: Dorcas Relationship: sister - REGIONAL TRAINER form received on 01/21/24 - Confirmed via [...] Office Visit [facility] [address] [place] [address], [place] [address] Massimo Heredia MD SDH (subdural hematoma) (HCC) (Primary Dx) 04/07/2025 Travel 04/01/2025 10:54 AM CDT - 04/01/2025 11:59 PM CDT Hospital Encounter [facility] [place] [address] [place] [address] Massimo Heredia MD Discharge Disposition: Home or Self Care 04/01/2025 10:20 AM CDT - 04/01/2025 10:53 AM CDT Hospital Encounter [facility] - MRI [address] [place] [address] Massimo Heredia MD Discharge Disposition: Home or Self Care 03/24/2025 Refill [facility] - [facility]iology [address] [facility], [facility] [address] [place] [address] Trenton Shaw, SUPERVISOR FABRICATION AND ASSEMBLY-SCHOOL TRAFFIC GUARD Refill Request 03/11/2025 Travel 03/04/2025 2:15 PM CDT Office Visit [facility] Neuro[facility] [address] [place] [address], [place] [address] Mala Upton, SUPERVISOR FABRICATION AND ASSEMBLY-SCHOOL TRAFFIC GUARD Massimo Heredia MD SDH (subdural hematoma) (HCC) (Primary Dx) 03/04/2025 11:19 AM CDT - 03/04/2025 11:59 PM CDT Hospital Encounter [facility] CAT [facility]AN [address] [place] [address] Mala Upton, SUPERVISOR FABRICATION AND ASSEMBLY-SCHOOL TRAFFIC GUARD Discharge Disposition: Home or Self Care 03/04/2025 9:30 AM CDT Office Visit [facility]opedics [address] [place] [address], [place] [address] Sanjeev Ramsey MD McCutchen, Kailey J, SUPERVISOR FABRICATION AND ASSEMBLY-SCHOOL TRAFFIC GUARD Closed fracture of left foot, initial encounter (Primary Dx); Charcot joint of left foot, non-diabetic 03/04/2025 9:16 AM CDT - 03/04/2025 11:59 PM CDT Hospital Encounter [facility] DI[facility]NOSTIC RAD [facility] [address] [facility] [place] [address] Sanjeev Ramsey MD Discharge Disposition: Home or Self Care 03/04/2025 Travel 03/03/2025 Orders Only [facility] [address] [place] [phone] Sanjeev Ramsey MD Closed fracture of left foot, initial encounter 02/08/2025 Telephone [facility] [address] [place] [phone] Cait Downs Appointment 02/06/2025 12:27 AM CDT - 02/06/2025 12:37 PM CDT Emergency [facility] [address] [place] [address] Allyson Casiano MD Byrne, Laurie E, MD Acute intractable headache, unspecified headache type; Left foot pain; Closed fracture of left foot with delayed healing, subsequent encounter Discharge Disposition: Home or Self Care 02/05/2025 Travel 02/04/2025 Telephone Transitional Care at [address] [phone] Indy Conte RN Results 02/03/2025 2:30 PM CDT Office Visit Transitional Care at [address] [address] Josr Lunsford MD Hospital discharge follow-up (Primary Dx); SDH (subdural hematoma) (HCC); Hyponatremia 02/03/2025 Results Follow-Up Transitional Care at [address] [phone] Sophie Billingsley, SUPERVISOR FABRICATION AND ASSEMBLY-SCHOOL TRAFFIC GUARD 02/01/2025 Telephone Transitional Care at [facility] [address] [place] [phone] Laura Fuller, veterinary pharmacologist 01/28/2025 2:43 AM CDT - 01/30/2025 1:00 PM CDT Hospital Encounter [facility] [address] [place] [address] Manuel Dyer III, MD Bastin, Taylor J, [...] st Contact Info) Description 05/25/2025 2:15 PM [employer] COMPANY TRUCK DRIVER Appointment [facility] [address] [place], [place] [id number] Health Maintenance Due Date Last Done Comments [...] this topic Medical Devices Implanted Type Area Dog Food Shredder Operator Device Identifier Shelf Expiration Date Model / Serial / Lot Stent Cor Giovanni 3.50 X 18rx Drg Elut - [id number] Implanted:Qty: 1 on 06/11/2024 by Jose Cedillo MD at [facility] Left: Coronary [employer] [id number] 06/11/2026 [id number] / [id number] / [id number] Procedures Procedure Name Priority Date/Time Associated Diagnosis [...] kidney disease on chronic dialysis, unspecified whether cloth bleaching range back tender insulin use (HCC) PHOSPHORUS BLOOD Routine 01/29/2025 1:06 AM CDT Type 2 diabetes mellitus with chronic kidney disease on chronic dialysis, unspecified whether halfway insulin use (HCC) CT HEAD WO CONTRAST STAT 01/28/2025 1 0:00 AM CDT Cerebrovascular accident (CVA), unspecified mechanism (HCC) Thyroid nodule SDH (subdural hematoma) (HCC) Essential hypertension COMPREHENSIVE METABOLIC PANEL STAT 01/28/2025 9:25 AM CDT Type 2 diabetes mellitus with chronic kidney disease on chronic dialysis, unspecified whether cloth bleaching range back tender insulin use (HCC) CBC W AUTO DIFFERENTIAL STAT 01/28/2025 9:25 AM CDT Type 2 diabetes mellitus with chronic kidney disease on chronic dialysis, unspecified whether halfway insulin use (HCC) GLUCOSE - POINT OF [...] 4. No large vessel occlusion around the [place]. > Interpreting Provider: Molly Loco MD on 04/01/2025 2:40 PM Narrative 04/01/2025 2:40 PM CDT MRI BRAIN AND MRA BRAIN NONCONTRAST DATE: 04/01/2025 12:00 PM HISTORY: S06.5XAA: SDH (subdural hematoma) (HCC). TECHNIQUE: Multiplanar and multisequence MR imaging of the brain was performed with and without intravenous contrast according to standard protocol. MR angiography of the nhyzvl-xg-Pfthay was performed using a rzny-hd-zwidtk technique without contrast. CONTRAST: Not known COMPARISON: [...] to standard protocol. MR angiography of the fgstfd-bk-Ydymhl was performed using a fuhg-wy-rovobo technique without contrast. CONTRAST: Not known COMPARISON: [...] 4. No large vessel occlusion around the [place]. > Interpreting Provider: Molly Loco [...] 4. No large vessel occlusion around the [place]. > Interpreting Provider: Molly Loco MD on 04/01/2025 2:40 PM Narrative 04/01/2025 2:40 PM CDT MRI BRAIN AND MRA BRAIN NONCONTRAST DATE: 04/01/2025 12:00 PM HISTORY: S06.5XAA: SDH (subdural hematoma) (HCC). TECHNIQUE: Multiplanar and multisequence MR imaging of the brain was performed with and without intravenous contrast according to standard protocol. MR angiography of the oiohxo-vx-Dlvvgo was performed using a pmql-jv-buppoy technique without contrast. CONTRAST: Not known COMPARISON: [...] to standard protocol. MR angiography of the qujctm-mg-Qvjfsd was performed using a mhbo-av-jwlpck technique without contrast. CONTRAST: Not known COMPARISON: [...] 4. No large vessel occlusion around the [place]. > Interpreting Provider: Molly Loco [...] in the presence of Abel Bagley MD, (student affairs vice president). > Interpreting Provider: Vipul Dc MD [...] in the presence of Abel Bagley MD, (student affairs vice president). > Interpreting Provider: Vipul Dc MD on 03/04/2025 2:21 PM Mala Upton SUPERVISOR FABRICATION AND ASSEMBLY-SCHOOL TRAFFIC GUARD CT ORDERABLES Final R esult * XR Foot Left 3Vw or More (03/04/2025 9:20 AM CDT) Anatomical Region Laterality Modality Ankle / Foot Computed Radiogr aphy 03/04/2025 10:4 8 AM CDT Narrative 03/04/2025 10:53 AM CDT PROCEDURE: XR FOOT LEFT 3VW OR MORE, DATE/TIME OF EXAM: 03/04/2025 9:20 AM, LOCATION [facility] INDICATION: S92.902A: Closed fracture of left foot, [...] report was drafted by Mihir Deras MD (residential carpenter) 03/04/2025 10:51 AM. > Dictated by Notching Press Operator Geovanna Barajas MD have personally reviewed and interpreted this examination/study. > Interpreting Provider: Geovanna Uribe MD on 03/04/2025 10:53 AM Procedure Note Geovanna Uribe MD - 03/04/2025 PROCEDURE: XR FOOT LEFT 3VW OR MORE, DATE/TIME OF EXAM: 03/04/2025 9:20 AM, LOCATION [facility] INDICATION: S92.902A: Closed fracture of left foot, [...] report was drafted by Mihir Deras MD (residential carpenter) 03/04/2025 10:51 AM. > Dictated by Notching Press Operator IGeovanna MD have personally reviewed and interpreted [...] fibula. > Dictated by Dorian Mancuso MD, (student affairs vice president). Scottie Barajas MD have personally reviewed and interpreted this examination/study. > Interpreting Provider: Scottie España MD on 02/06/2025 11:44 PM Narrative 02/06/2025 11:44 PM CDT PROCEDURE: XR TIBIA FIBULA LEFT 2VW, DATE/TIME OF EXAM: 02/06/2025 9:24 AM, LOCATION [facility] INDICATION: M79.672: Left foot pain ADDITIONAL CLINICAL [...] DATE/TIME OF EXAM: 02/06/2025 9:24 AM, LOCATION [facility] INDICATION: M79.672: Left foot pain ADDITIONAL CLINICAL [...] fibula. > Dictated by Dorian Mancuso MD, (student affairs vice president). I, Scottie España MD have personally [...] osteoarthropathy. Report dictated by Kel Jung MD, (student affairs vice president). I, Brian Forrester MD have personally [...] osteoarthropathy. Report dictated by Kel Jung MD, (student affairs vice president). I, Brian Forrester MD have personally [...] DATE/TIME OF EXAM: 02/06/2025 4:50 AM, LOCATION [facility] INDICATION: R51.9: Acute intractable headache, unspecified headache type ADDITIONAL CLINICAL INFORMATION: Ordering Provider Reason For Exam: ?swelling, ?fracture (accession [id number]), ?fx (accession [id number]) COMPARISON: None. FINDINGS/IMPRESSION: Left Foot-Ankle Age-indeterminate comminuted [...] report was drafted by Mihir Deras MD (residential carpenter) 02/06/2025 6:25 AM. IScottie MD have personally reviewed and interpreted this examination/study. > Interpreting Provider: Scottie España MD on 02/06/2025 11:21 PM Procedure Note Scottie España MD - 02/06/2025 PROCEDURE: XR ANKLE LEFT 3VW OR MORE, XR FOOT LEFT 2VW, DATE/TIME OFEXAM: 02/06/2025 4:50 AM, LOCATION [facility] INDICATION: R51.9: Acute intractable headache, unspecified headache type ADDITIONAL CLINICAL INFORMATION: Ordering Provider Reason For Exam: ?swelling, ?fracture (accession [id number]), ?fx (accession [id number]) COMPARISON: None. FINDINGS/IMPRESSION: Left Foot-Ankle Age-indeterminate comminuted [...] report was drafted by Mihir Deras MD (residential carpenter) 02/06/2025 6:25 AM. Scottie Barajas MD have [...] DATE/TIME OF EXAM: 02/06/2025 4:50 AM, LOCATION [facility] INDICATION: R51.9: Acute intractable headache, unspecified headache type ADDITIONAL CLINICAL INFORMATION: Ordering Provider Reason For Exam: ?swelling, ?fracture (accession [id number]), ?fx (accession [id number]) COMPARISON: None. FINDINGS/IMPRESSION: Left Foot-Ankle Age-indeterminate comminuted [...] report was drafted by Mihir Deras MD (residential carpenter) 02/06/2025 6:25 AM. Scottie Barajas MD have personally reviewed and interpreted this examination/study. > Interpreting Provider: Scottie España MD on 02/06/2025 11:21 PM Procedure Note Scottie España MD - 02/06/2025 PROCEDURE: XR ANKLE LEFT 3VW OR MORE, XR FOOT LEFT 2VW, DATE/TIME OFEXAM: 02/06/2025 4:50 AM, LOCATION [facility] INDICATION: R51.9: Acute intractable headache, unspecified headache type ADDITIONAL CLINICAL INFORMATION: Ordering Provider Reason For Exam: ?swelling, ?fracture (accession [id number]), ?fx (accession [id number]) COMPARISON: None. FINDINGS/IMPRESSION: Left Foot-Ankle Age-indeterminate comminuted [...] report was drafted by Mihir Deras MD (residential carpenter) 02/06/2025 6:25 AM. I, Scottie España MD have personally reviewed and interpreted this examination/study. > Interpreting Provider: Scottie España MD on 02/06/2025 11:21 PM us Allyson Casiano MD DIAGNOSTIC IMAGING ORDERABLES Fi nal Result * TSH REFLEX FREE T4 (02/06/2025 4:12 AM CDT) TSH 3.851 0.350 - 4.940 uIU/mL 02/06/2025 5:08 AM CDT [facility] Blood BLOOD SPECIMEN / Unknown Venipuncture / Unknown 02/06/2025 4:12 AM CDT 02/06/2025 4:18 AM CDT us Sebastián Liang MD LAB - CHEMISTRY ORDERABLES F inal Result [facility] [address] [place] [address], [facility] [phone] * TYPE + SCREEN PANEL (02/06/2025 4:12 AM CDT) Only the most recent of2 resultswithin the time period is included. Antibody Screen NEG 5:02 AM CDT [facility] ABO Rh O POS 02/06/2025 5:02 AM CDT [facility] Blood Bank BLOOD SPECIMEN / Unknown Venipuncture / Unknown 02/06/2025 4:12 AM CDT 02/06/2025 4:17 AM CDT us Allyson Casiano MD LAB - BLOOD BANK ORDERABLES Swathi l Result Performing Organization Address City/[facility]/ZIP Co de Phone Number [facility] [address] [place] [address], [facility] [phone] * (ABNORMAL) PT-INR (02/05/2025 11:05 PM CDT) Only the most recent of2 resultswithin the time period is included. Pathologist [facility] PT 14.9(H) 12.1 - 14.8 Seconds 02/05/2025 11:53 PM CDT [facility] INR 1.2 See Comment 02/05/2025 11:53 PM CDT [facility] Comment:The suggested therap eutic range for standard coumadin (warfarin) therapy is an INR of 2.0-3.0. For high-risk patients (Mechanical Mitral Valve Prosthesis, etc.), the suggested prophylactic therapeutic range is an INR of 2.5-3.5. Blood BLOOD SPECIMEN / Unknown Venipuncture / Unknown 02/05/2025 11:05 PM CDT 02/05/2025 11:15 PM CDT us Sebastián Liang MD LAB - COAGULATION ORDERABLES Final Result Performing Organization Address City/[facility]/ZIP Co de Phone Number [facility] [address] [place] [address], [facility] [phone] * (ABNORMAL) CBC W AUTO DIFFERENTIAL (02/05/2025 11:05 PM [facility]) Only the most recent of4 resultswithin the time period is included. WBC 5.2 4.0 - 10.7 x10E9/L 02/05/2025 11:21 PM [facility] RBC Count 3.51(L) 4.30 - 5.80 x10E12/L 02/05/2025 11:21 PM [facility] Hemoglobin 11.2(L) 13.3 - 17.5 g/dL 02/05/2025 11:21 PM [facility] Hematocrit 33.9(L) 38.7 - 51.1 % 02/05/2025 11:21 PM [facility] MCV 96.6 80.0 - 98.0 fL 02/05/2025 11:21 PM [facility] MCH 31.9 26.7 - 33.6 pg 02/05/2025 11:21 PM [facility] MCHC 33.0 31.7 - 36.3 g/dL 02/05/2025 11:21 PM [facility] RDW-CV 16.0(H) 11.3 - 14.8 % 02/05/2025 11:21 PM [facility] Platelet Count 173 150 - 420 x10E9/L 02/05/2025 11:21 PM [facility] MPV 9.5 7.8 - 11.4 fL 02/05/2025 11:21 PM [facility] Neutrophil % 68.0 41.0 - 74.0 % 02/05/2025 11:21 PM [facility] Lymphocyte % 9.9(L) 17.0 - 47.0 % 02/05/2025 11:21 PM [facility] Monocyte % 11.0 3.0 - 11.0 % 02/05/2025 11:21 PM [facility] Eosinophil % 9.5(H) 0.0 - 7.0 % 02/05/2025 11:21 PM [facility] Basophil % 1.2 0.0 - 1.6 % 02/05/2025 11:21 PM [facility] Immature Granulocytes % 0.4 0.0 - 1.0 % 02/05/2025 11:21 PM [facility] Neutrophil Absolute 3.52 1.60 - 7.50 x10E9/L 02/05/2025 11:21 PM [facility] Lymphocyte Absolute 0.51(L) 1.00 - 4.40 x10E9/L 02/05/2025 11:21 PM [facility] Monocyte Absolute 0.57 0.15 - 1.00 x10E9/L 02/05/2025 11:21 PM [facility] Eosinophil Absolute 0.49 0.00 - 0.60 x10E9/L 02/05/2025 11:21 PM [facility] Basophil Absolute 0.06 0.00 - 0.13 x10E9/L 02/05/2025 11:21 PM [facility] Blood BLOOD SPECIMEN / Unknown Venipuncture / Unknown 02/05/2025 11:05 PM CDT 02/05/2025 11:15 PM T us Sebastián Liang MD LAB - HEMATOLOGY ORDERABLES Final Result [address] [address], [facility] [phone] * (ABNORMAL) COMPREHENSIVE METABOLIC PANEL (02/05/2025 11:05 PM CDT) Only the most recent of3 resultswithin the time period is included. BUN 20 7 - 26 mg/dL 02/05/2025 11:41 PM [facility] Creatinine 6.24(H) 0.71 - 1.16 mg/dL 02/05/2025 11:41 PM [facility] Sodium 134(L) 136 - 145 mmol/L 02/05/2025 11:41 PM [facility] Potassium 4.9(H) 3.5 - 4.5 mmol/L 02/05/2025 11:41 PM [facility] Chloride 93(L) 98 - 107 mmol/L 02/05/2025 11:41 PM [facility] CO2 33(H) 22 - 29 mmol/L 02/05/2025 11:41 PM [facility] Glucose 148(H) 70 - 99 mg/dL 02/05/2025 11:41 PM [facility] Calcium 10.5(H) 8.4 - 10.2 mg/dL 02/05/2025 11:41 PM [facility] Protein Total 7.7 6.0 - 8.3 g/dL 02/05/2025 11:41 PM [facility] Albumin 4.1 3.4 - 5.0 g/dL 02/05/2025 11:41 PM [facility] Bilirubin Total 0.9 0.2 - 1.2 mg/dL 02/05/2025 11:41 PM [facility] Alkaline Phosphatase 115 40 - 150 U/L 02/05/2025 11:41 PM [facility] ALT 9 5 - 55 U/L 02/05/2025 11:41 PM [facility] [place] 12 5 - 34 U/L 02/05/2025 11:41 PM [facility] Anion Gap 8 6 - 16 02/05/2025 11:41 PM [facility] BUN/Creatinine Ratio 3(L) 7 - 23 02/05/2025 11:41 PM [facility] Osmolality Calculated 283 275 - 295 mOsm/kg 02/05/2025 11:41 PM [facility] Albumin/Globulin Ratio 1.1 1.1 - 2.3 02/05/2025 11:41 PM [facility] eGFR by CKD-EPI 10(L) >=90 mL/min/1.7 3 m2 02/05/2025 11:41 PM [facility] Comment:Estimated Glomerular Filtration Rate (eGFR) calculated using the CKD-EPI Creatinine Equation (2020), per the National [employer] and [place] [employer] recommendations. Blood BLOOD SPECIMEN / Unknown Venipuncture / Unknown 02/05/2025 11:05 PM CDT 02/05/2025 11:15 PM [facility] us Sebastián Liang MD LAB - CHEMISTRY ORDERABLES F inal Result [facility] [address] [place] [address], [facility] [phone] * (ABNORMAL) BASIC METABOLIC PANEL (CALCIUM TOTAL) (02/03/2025 2:54 PM CDT) Only the most recent of3 resultswithin the time period is included. BUN 24 7 - 26 mg/dL 02/03/2025 4:30 PM [facility] Creatinine 7.47(H) 0.71 - 1.16 mg/dL 02/03/2025 4:30 PM [facility] Sodium 136 136 - 145 mmol/L 02/03/2025 4:30 PM [facility] Potassium 4.8(H) 3.5 - 4.5 mmol/L 02/03/2025 4:30 PM [facility] Chloride 96(L) 98 - 107 mmol/L 02/03/2025 4:30 PM [facility] CO2 32(H) 22 - 29 mmol/L 02/03/2025 4:30 PM [facility] Glucose 161(H) 70 - 99 mg/dL 02/03/2025 4:30 PM [facility] Calcium 10.1 8.4 - 10.2 mg/dL 02/03/2025 4:30 PM [facility] Anion Gap 8 6 - 16 02/03/2025 4:30 PM [facility] BUN/Creatinine Ratio 3(L) 7 - 23 02/03/2025 4:30 PM [facility] Osmolality Calculated 290 275 - 295 mOsm/kg 02/03/2025 4:30 PM [facility] eGFR by CKD-EPI 8(L) >=90 mL/min/1.7 3 m2 02/03/2025 4:30 PM [facility] Comment:Estimated Glomerular Filtration Rate (eGFR) calculated using the CKD-EPI Creatinine Equation (2020), per the National Kid[employer] and [place] [employer] recommendations. Blood BLOOD SPECIMEN / Unknown Lab Venipuncture / Unknown 02/03/2025 2:54 PM CDT 02/03/2025 3:57 PM CDT us Sophie Billingsley SUPERVISOR [employer] LAB - CHEMISTRY ORDERAB LES Final Result [facility] [address] [place] [address], [facility] [phone] * (ABNORMAL) CBC W/O DIFFERENTIAL (01/30/2025 2:43 AM CDT) [facility] WBC 4.7 4.0 - 10.7 x10E9/L 01/30/2025 3:05 AM [facility] RBC Count 3.22(L) 4.30 - 5.80 x10E12/L 01/30/2025 3:05 AM [facility] Hemoglobin 10.1(L) 13.3 - 17.5 g/dL 01/30/2025 3:05 AM [facility] Hematocrit 31.0(L) 38.7 - 51.1 % 01/30/2025 3:05 AM [facility] MCV 96.3 80.0 - 98.0 fL 01/30/2025 3:05 AM [facility] MCH 31.4 26.7 - 33.6 pg 01/30/2025 3:05 AM [facility] MCHC 32.6 31.7 - 36.3 g/dL 01/30/2025 3:05 AM [facility] RDW-CV 15.5(H) 11.3 - 14.8 % 01/30/2025 3:05 AM [facility] Platelet Count 196 150 - 420 x10E9/L 01/30/2025 3:05 AM [facility] MPV 9.7 7.8 - 11.4 fL 01/30/2025 3:05 AM [facility] Blood BLOOD SPECIMEN / Unknown Lab Venipuncture / Unknown 01/30/2025 2:43 AM CDT 01/30/2025 3:01 AM CDT us Mirna Zuniga MD LAB - HEMATOLOGY ORDERABLES F inal Result [address] [address], [facility] [phone] * CARDIAC EKG ORDER (01/29/2025 12:56 PM CDT) Narrative 01/29/2025 12:56 PM CDT Ordered by an unspecified provider. us Scanned Document CARDIAC SERVICES ORDERABLES Fin al Result * HEPATITIS B SURFACE ANTIGEN W RFLX CONFIRMATION (01/29/2025 12:01 PM CDT) Hepatitis B Virus Surface Antigen Non-reacti ve Non-reacti ve 01/29/2025 1:03 PM CDT [facility] Blood BLOOD SPECIMEN / Unknown Venipuncture / Unknown 01/29/2025 12:01 PM CDT 01/29/2025 12:05 PM CDT us Ashleigh Leyva MD LAB - CHEMISTRY ORDERABLES Fi nal Result [address] [address], [facility] [phone] * (ABNORMAL) PHOSPHORUS BLOOD (01/29/2025 1:06 AM CDT) Phosphorus 5.5(H) 2.8 - 5.1 mg/dL 01/29/2025 1:43 AM CDT [facility] Blood BLOOD SPECIMEN / Unknown Venipuncture / Unknown 01/29/2025 1:06 AM CDT 01/29/2025 1:10 AM CDT us Mirna Zuniga MD LAB - CHEMISTRY ORDERABLES Fi nal Result Performing Organization Address City/[facility]/ZIP Co de Phone Number [address] [address], [facility] [phone] * (ABNORMAL) GLUCOSE - POINT OF CARE (01/28/2025 9:23 AM CDT) Only the most recent of2 resultswithin the time period is included. Pathologist [facility] Glucose WB/POC 100(H) 70 - 99 mg/dL 01/28/2025 9:28 AM CDT [facility] Specimen Type Venous 01/28/2025 9:28 AM CDT [facility] Blood BLOOD SPECIMEN / Unknown 01/28/2025 9:23 AM CDT 01/28/2025 9:28 AM CDT us Mirna Zuniga MD LAB - POINT OF CARE ORDERABLE S Final Result [facility] [address] [place] [address], [facility] [phone] * EKG 12-LEAD (01/28/2025 3:59 AM CDT) [facility] Ventricular Rate 77 BPM [facility] Atrial Rate 77 BPM [facility] P-R Interval 218 ms [facility] QRS Duration ms 116 ms [facility] Q-T Interval ms 454 ms [facility] QTC Calculation (Bezet) 513 ms [facility] Calculated P [place] 63 degrees SL MUSE Calculated R [place] 6 degrees H MUSE Calculated T [place] 79 degrees SL MUSE Interpretation EKG SINUS RHYTHM WITH 1ST DEGREE A-V BLOCK INCOMPLETE RIGHT BUNDLE BRANCH BLOCK MINIMAL VOLTAGE CRITERIA FOR LVH, MAY BE NORMAL VARIANT ( [place] product ) NONSPECIFIC T WAVE ABNORMALITY PROLONGED QT ABNORMAL ECG WHEN COMPARED WITH ECG OF 27-APR-2024 12:22, INCOMPLETE RIGHT BUNDLE BRANCH BLOCK IS NOW PRESENT Confirmed by TEDDY LOCK, ZAC WRIGHT ([id number]) on 01/30/2025 2:50:47 PM [facility] 01/28/2025 3:59 AM CDT 01/30/2025 2:50 PM CDT Sebastián Liang MD ECG ORDERABLES Edited Resul t - Final [facility] * (ABNORMAL) TEG 6S PLATELET MAPPING (01/28/2025 3:51 AM CDT) [facility] TEGPLM (Max Amplitude) [place] 46.3(L) 53.0 - 68.0 mm 01/28/2025 4:59 AM [facility] TEGPLM (Max Amplitude) ACTF 14.0 2.0 - 19.0 mm 01/28/2025 4:59 AM [facility] TEGPLM (Max Amplitude) ADP 42.0(L) 45.0 - 69.0 mm 01/28/2025 4:59 AM [facility] Comment:ADP MA below normal range. Inhibition present. TEGPLM (Max Amplitude) AA 29.1(L) 51.0 - 71.0 mm 01/28/2025 4:59 AM [facility] Comment:AA MA below normal r raffi. Inhibition present. TEGPLM %Inhibition ADP 13.3 0.0 - 17.0 % 01/28/2025 4:59 AM [facility] TEGPLM %Inhibition AA 53.3(H) 0.0 - 11.0 % 01/28/2025 4:59 AM [facility] TEGPLM %Aggregation ADP 86.7 83.0 - 100.0 % 01/28/2025 4:59 AM [facility] TEGPLM % Aggregation AA 46.7(L) 89.0 - 100.0 % 01/28/2025 4:59 AM [facility] Blood BLOOD SPECIMEN / Unknown Venipuncture / Unknown 01/28/2025 3:51 AM CDT 01/28/2025 3:57 AM CDT us Tyrell Bradley SUPERVISOR [employer] LAB - HEMATOLOGY ORDER LINDA Final Result [facility] [address] [place] [address], [facility] [phone] * (ABNORMAL) TROPONIN-I HIGH SENSITIVE (01/28/2025 3:48 AM CDT) Troponin I High Sensitive 40(H) <=35 ng/L 01/28/2025 4:33 AM T [facility] Blood BLOOD SPECIMEN / Unknown Venipuncture / Unknown 01/28/2025 3:48 AM CDT 01/28/2025 3:58 AM CDT us Sebastián Liang MD LAB - CHEMISTRY ORDERABLES F inal Result Performing Organization Address [facility]/ZIP Co de Phone Number [address] [address], [place] [phone] * PTT (01/28/2025 3:48 AM CDT) APTT 37.3 23.0 - 38.4 Seconds 01/28/2025 4:30 AM CDT [facility] Comment:Suggested therapeuti c range for full dose I.V. unfractionated heparin therapy for venous thromboembolism is 71 to 109 seconds. Blood BLOOD SPECIMEN / Unknown Venipuncture / Unknown 01/28/2025 3:48 AM CDT 01/28/2025 3:58 AM CDT us Sebastián Liang MD LAB - COAGULATION ORDERABLES Final Result Performing Organization Address [facility] Co de Phone Number [address] [address], [place] [phone] * CT Angio Brain And Neck (01/28/2025 [...] report was drafted by Mihir Deras MD (residential carpenter). I, Stefanie Schreiber MD have personally reviewed and interpreted this examination/study. > Interpreting Provider: Stefanie Schreiber MD on 01/28/2025 11:07 AM Narrative 01/28/2025 11:07 AM CDT PROCEDURE: CT ANGIO BRAIN AND NECK, DATE/TIME OF EXAM: 01/28/2025 3:37 AM, LOCATION [facility] INDICATION: I63.9: Cerebrovascular accident (CVA), unspecified mechanism [...] NECK, DATE/TIME OF EXAM: 01/28/2025 3:37AM, LOCATION [facility] INDICATION: I63.9: Cerebrovascular accident (CVA), unspecified mechanism [...] report was drafted by Mihir Deras MD (residential carpenter). I, Stefanie Schreiber MD have personally reviewed and interpreted this examination/study. > Interpreting Provider: Stefanie Schreiber MD on 01/28/2025 11:07 AM us Allyson Casiano MD CT ORDERABLES Final Result * HEMOGLOBIN A1C - POINT OF CARE (AMB) [facility] (05/12/2024 1:22 PM CDT) Hemoglobin A1c POCT 4.7 % [facility] [address] [facility] BLOOD SPECIMEN / Unknown 05/12/2024 1:22 PM CDT us Niurka Donato MD LAB - POINT OF CARE ORDERABLES Final Result [facility] Tr[facility] Marc [facility], [place] [address], [facility] [phone] * ENDOSCOPY, COLON, SCREENING (01/28/2024 12:23 PM [...] and oxygen saturations were monitored continuously. The [id number] was introduced through the anus and advanced to the cecum, identified by appendiceal orifice and ileocecal valve. The colonoscopy was performed without difficulty. The patient tolerated the procedure well. The quality of the bowel preparation was evaluated using the BBPS ([place] Bowel Preparation Scale) with scores of: Right [...] non-barillas portions. Procedure Code(s): --- Professional --- 58382, Colonoscopy, flexible; with removal of tumor(s), polyp(s), or other lesion(s) by snare technique Diagnosis Code(s): --- Professional --- Z12.11, Encounter for screening for malignant neoplasm of colon D12.3, Benign neoplasm of transverse colon (hepatic flexure or splenic flexure) D12.2, Benign neoplasm of ascending colon CPT copyright 2021 [employer]. All rights reserved. The codes documented in this report are preliminary and upon employee relation manager review may be revised to meet current compliance requirements. Mauro Gómez MD 01/28/2024 1:37:03 PM Note Initiated On: 01/28/2024 12:23 PM Number of Addenda: [id number] [place] [address] 01/28/2024 12:2 3 PM CDT Daniel Leggett MD GI PROCEDURE ORDERAB LES Edited Result - Final Performing Organization Address City/[facility]/ZIP Co de Phone Number [facility] * HIV-1 HIV-2 ANTIBODY + HIV P24 AG PANEL (01/07/2024 12:28 PM CDT) [facility] HIV Antigen/Antibod y 1 & 2 Non-reacti ve Non-react mary jane 01/07/2024 2:52 PM CDT [facility] Comment:No Laboratory eviden ce of HIV infection. Blood BLOOD SPECIMEN / Unknown Lab Venipuncture / Unknown 01/07/2024 12:28 PM CDT 01/07/2024 1:08 PM CDT Clif Stein MD LAB - CHEMISTRY ORDERAB LES Final Result Performing Organization Address [facility]/ZIP Co de Phone Number [address] [address], [facility] [phone] * HEPATITIS C ANTIBODY (01/07/2024 12:28 PM CDT) Hepatitis C Antibody Non-react mary jane Non-reac tive 01/07/2024 2:52 PM CDT [facility] Comment:Hepatitis C Antibody screen [...] LAB - CHEMISTRY ORDERAB LES Final Result [facility] [address] [place] [address], [facility] [phone] from Last 3 Months or Most Recently [...] 3:49 PM 02/23/2019 4:47 PM Care Teams Socket Puller Relationship Specialty Start Date End Date Dallas Tejada MD [address] [place] [address] PCP - General Internal Medicine 02/06/25 Naomi Kaye MD [address] [address] [facility] 11[facility]24 Dallas Tejada MD [address] [facility] [address] [place] [address] Internal Medicine 02/06/25
[2025-04-13 20:47] LABS: Hematocrit 33.9 % (42.0-52.0); Hemoglobin 10.7 g/dL (14.0-18.0); Mean Corpuscular HGB Conc 31.6 g/dl (32-36); Mean Corpuscular Hemoglobin 31.1 pg (26-34); Mean Corpuscular Volume 98.5 fl (80-100); Platelet Count Result 186 k/mm3 (150-375); Red Blood Count 3.44 M/mm3 (4.6-6.20); White Blood Count 14.3 K/mm3 (4.5-10.0)
[2025-04-13 20:58] LABS: Alanine Aminotransferase 19 U/L (6-50); Albumin Level 3.5 g/dL (3.5-5.1); Alkaline Phosphatase 227 U/L (38-126); Anion Gap 11 mmol/L (4-12); Aspartate Amino Transferase 41 U/L (17-59); Bilirubin,Total 3.0 mg/dL (0.2-1.3); Blood Urea Nitrogen 62 mg/dL (9-20); Calcium 10.6 mg/dL (8.4-10.2); Carbon Dioxide 32 mmol/L (22-30); Chloride 85 mmol/L (98-107); Creatine Kinase 86 U/L (55-170); Estimated Glomerular Filt Rate 7; Glucose 145 mg/dL (65-110); Potassium 4.3 mmol/L (3.4-5.0); Sodium 128 mmol/L (137-145); Total Protein 8.1 g/dL (6.3-8.2)
[2025-04-13 20:59] LABS: Band Neutrophils Percent 6 % (0-6); Lymphocytes Absolute Manual 0.28 K/mm3 (1.1-4.5); Lymphocytes Percent Manual 2 % (18-44); Monocytes Absolute Manual 1.43 K/mm3 (0.1-0.90); Monocytes Percent Manual 10 % (3-9); Neutrophils Absolute Manual 12.58 K/mm3 (1.3-6.7); Neutrophils Percent Manual 82 % (46-73); Total Cells Counted 100
[2025-04-13 21:00] LABS: Hypochromasia 1+; Schistocytes None Seen
[2025-04-13 21:06] LABS: INR 1.3; Prothrombin Time 16.1 Seconds (11.1-14.7)
[2025-04-13 21:07] LABS: Partial Thromboplastin Time 36.8 Seconds (22.3-36.8)
[2025-04-13 21:35] LABS: CRP > 45.0 mg/dL (<1.0)
[2025-04-13] MEDS: SODIUM CHLORIDE 0.9% IVPB (21:39)
[2025-04-13] MEDS: MEROPENEM IVPB (21:39)
[2025-04-13] MEDS: CLINDAMYCIN 900 MG/D5W 50 ML 900 MG/50 ML PIGGYBACK 50 MG IVPB (23:28)
[2025-04-13 23:32] VITALS: BP 137/65; PULSE 91; RESP 18; TEMP 37.2; O2SAT 97
[2025-04-14] VITALS (24 sets, daily range): BP systolic 128–161; BP diastolic 51–74; PULSE 76–87; RESP 16–20; TEMP 36.2–37.3; O2SAT 93–99; BMI 30.7
--- NOTE | 2025-04-14 00:38 | PM.IMHP ---
H&P: HPI History of Present Illness Date/Time: 04/14/25 00:38 Chief Complaint: Left foot swelling and pain Narrative: 44-year-old male with PMH ESRD on dialysis MWF via left upper arm fistula followed by [facility] being evaluated for kidney transplant, hypertension, hyperlipidemia, CAD, anemia of chronic disease. He presents to [facility] ER 04/13/2025 complaining of left foot pain and swelling. A few days prior he had some swelling in his leg, he does wear compression stockings. One day prior to admission he had a ground level fall and was laying outside for about 5 hours. There is a skin tear to his right lower leg, increased swelling and blisters to his left foot. WBC 14.3, hemoglobin 10.7, INR 1.3, PTT 36.8, sodium 128, bicarb 32, BUN 62, serum creatinine 8.41, glucose 145, alkaline phosphatase 227, CRP greater than 45. Venous Doppler of the left lower extremity demonstrates left peroneal and posterior tibial vein DVT. Left foot x-ray demonstrates multiple fractures of hindfoot and tarsal bones with this placement of a calcaneal fracture fragments as well as the navicular bone, a subsequent CT of the left foot with contrast demonstrates areas of cortical destruction with surrounding abscess consistent with underlying abscess formation, infection osteomyelitis with foci of air within the soft tissue. Head CT without acute intracranial findings. He was given clindamycin, vancomycin, meropenem, started on heparin GTT. Orthopedic surgery was consulted from the ER and recommended admission under the hospitalist team for antibiotics. Review of Systems Review of Systems: All systems reviewed & are unremarkable except as noted in HPI and below (Subjective) [facility] Past Medical History Medical History Coronary artery disease Anemia in chronic kidney disease Hyperlipidemia Hypertension End-stage renal disease on hemodialysis on transplant list at [facility] Surgical History Surgical History History of cardiac catheterization (05/2024) History of coronary artery stent placement (05/2024) at [facility] Status post creation of arteriovenous fistula left upper extremity Family History Family History Mother Acute myocardial infarction Father Acute myocardial infarction Sibling Diabetes mellitus Social History Social History Social History: Surrogate medical decision maker: Virginia Bustamante, girlfriend. Code status: Full code. Years smoked: 23 Smoking status: Former smoker Tobacco type: cigars Smoking end date: 09/20/23 Alcohol intake: never Substance use: former Substance use type: marijuana Do You Feel Safe in your Home?: Yes Lack of Transportation: No Lack of Food: Never True Current Housing: I Have Housing Concerned About Future Housing: No Difficulty Paying Gas/Electric Bills: No Difficulty Paying for Meds: No Currently Unemployed: YES Education: High School Diploma/GED Difficulty w/ Childcare or Family Care: No Additional living arrangements comments: Lives with girlfriend. Additional occupation/education comments: Disabled. Spiritual care concerns: No Meds Home Medications and Allergies Home Medications ?Medication ?Instructions ?Recorded ?Confirmed ?Type amlodipine 10 mg tablet 10 mg PO DAILY 11/11/24 11/11/24 History calcium acetate(phosphat bind) 667 667 mg PO QID 11/11/24 11/11/24 History mg capsule clopidogrel 75 mg tablet 75 mg PO DAILY 11/11/24 11/11/24 History cyclobenzaprine 10 mg tablet 10 mg PO Q8H PRN restless leg(s) 11/11/24 11/11/24 History furosemide 80 mg tablet 80 mg PO Q12H 11/11/24 11/11/24 History hydralazine 50 mg tablet 50 mg PO TID 11/11/24 11/11/24 History metoprolol succinate 25 mg 12.5 mg PO DAILY 11/11/24 11/11/24 History tablet,extended release 24 hr peg-electrolyte solution 420 gram 240 ml PO DAILY PRN constipation 11/11/24 11/11/24 History oral solution ropinirole 0.25 mg tablet 0.25 mg PO HS 11/11/24 11/11/24 History rosuvastatin 10 mg tablet 10 mg PO HS 11/11/24 11/11/24 History Allergies Allergy/AdvReac Type Severity Reaction Status Date / Time No Known Allergies Allergy Verified 04/13/25 17:21 Vital Signs Vital Signs - 24 hr 04/13/25 17:16 04/13/25 23:32 Temperature 99.1 F 99.0 F Pulse Rate 93 91 Respiratory Rate 17 18 Blood Pressure 135/63 137/65 Pulse Oximetry 98 97 Oxygen Delivery Room Air Exam Const: General: comfortable and no acute distress Other: A&O x3 HENMT: Mouth: Yes moist mucous membranes Eyes: Pupils: Equal, round and reactive pupils present Resp: Effort & Inspection: normal respiratory effort Auscultation: clear to auscultation bilaterally Cardio: Rate: regular rate Rhythm: regular rhythm GI: Inspection: non-distended GI Palp: Yes Soft to palpation Neuro: Motor exam (neuro): 5/5 motor strength present throughout Extrem: Other: Excoriation of the right lower extremity below the knee laterally. Left foot significantly edematous, warm, mild tenderness to deep palpation, sensation intact, open area at the 1st toe with dried blood H&P: Results Labs Labs: Short CBC 04/13/25 Range/Units 20:34 WBC 14.3 H (4.5-10.0) K/mm3 Hgb 10.7 L (14.0-18.0) g/dL Hct 33.9 L (42.0-52.0) % Plt Count 186 (150-375) k/mm3 BMP 04/13/25 20:34 Sodium 128 L Potassium 4.3 Chloride 85 L Carbon Dioxide 32 H BUN 62 H D Creatinine 8.41 H Glucose 145 H Calcium 10.6 H Cardiac Enzymes 04/13/25 Range/Units 20:34 Total Creatine Kinase 86 (55-170) U/L Liver Function 04/13/25 Range/Units 20:34 Total Bilirubin 3.0 H (0.2-1.3) mg/dL AST 41 (17-59) U/L ALT 19 (6-50) U/L Alkaline Phosphatase 227 H (38-126) U/L Albumin 3.5 (3.5-5.1) g/dL Assessment and Plan Assessment and plan (1) Osteomyelitis: Code(s): M86.9 - Osteomyelitis, unspecified Status: Acute (2) Hypertension: Code(s): I10 - Essential (primary) hypertension Status: Acute (3) Cellulitis: Code(s): L03.90 - Cellulitis, unspecified Status: Acute Plan 44-year-old male with PMH ESRD on dialysis MWF via left upper arm fistula followed by [facility] being evaluated for kidney transplant, hypertension, hyperlipidemia, CAD, anemia of chronic disease. He presents to [facility] ER 04/13/2025 complaining of left foot pain and swelling. A few days prior he had some swelling in his leg, he does wear compression stockings. One day prior to admission he had a ground level fall and was laying outside for about 5 hours. There is a skin tear to his right lower leg, increased swelling and blisters to his left foot. WBC 14.3, hemoglobin 10.7, INR 1.3, PTT 36.8, sodium 128, bicarb 32, BUN 62, serum creatinine 8.41, glucose 145, alkaline phosphatase 227, CRP greater than 45. Venous Doppler of the left lower extremity demonstrates left peroneal and posterior tibial vein DVT. Left foot x-ray demonstrates multiple fractures of hindfoot and tarsal bones with this placement of a calcaneal fracture fragments as well as the navicular bone, a subsequent CT of the left foot with contrast demonstrates areas of cortical destruction with surrounding abscess consistent with underlying abscess formation, infection osteomyelitis with foci of air within the soft tissue. Head CT without acute intracranial findings. He was given clindamycin, vancomycin, meropenem, started on heparin GTT. Orthopedic surgery was consulted from the ER and recommended admission under the hospitalist team for antibiotics. ----- Continue clindamycin, meropenem, vancomycin. Wound culture obtained in ER. Cultures obtain. Orthopedic surgery consultation. Bed rest. Trend leukocytosis, hemodynamically stable. Continue heparin GTT for left lower extremity DVT. After surgical intervention is complete transition to oral, considering ESRD. Last dialysis on 04/12/2025. Nephrology consulted from ER. Appears euvolemic. No fluids at this time. Daily weights, strict intake/output. Full code. Lock IV. Hospitalist [facility] Advance Care Plan I have confirmed that the patient's Advanced Care Plan is present, code status is documented, or surrogate decision maker is listed in patient medical record.: Yes Medication Reconciliation I have utilized all available resources to obtain, update and review the patients current medications (includes all prescriptions, OTC, herbals, cannabis, and nutritional supplements).: Yes
[2025-04-14] MEDS: VANCOMYCIN 2,000 MG/NS 500 ML 2,000 MG/500 ML BAG 250 MG IVPB (00:53)
--- NOTE | 2025-04-14 01:23 | ADMGEN ---
This patient, Rj Cole, was admitted to [facility] Surg Room 304-02. Patient/family oriented to hospital policies and general routines including ID bracelet, bed and alarms, visiting hours, pain management, procedures, bathroom and other care routines, personal items, smoking policy, room service/diet, and visiting hours. Information on how to activate the Rapid Response Team has been discussed. Patient/Family are encouraged to report perceived risks to care and to ask questions if they do not understand what they are told or what they should do.
[2025-04-14 03:28] LABS: MRSA (PCR) NOT DETECTED (NOT DETECTE)
[2025-04-14] MEDS: HEPARIN SOD/D5W 100 UNITS/ML 25,000 UNITS/250 ML BAG 15 UNITS IV CONT (04:11)
[2025-04-14 06:26] LABS: Hematocrit 30.3 % (42.0-52.0); Hemoglobin 9.4 g/dL (14.0-18.0); Mean Corpuscular HGB Conc 31.0 g/dl (32-36); Mean Corpuscular Hemoglobin 30.9 pg (26-34); Mean Corpuscular Volume 99.7 fl (80-100); Platelet Count Result 171 k/mm3 (150-375); Red Blood Count 3.04 M/mm3 (4.6-6.20); White Blood Count 14.4 K/mm3 (4.5-10.0)
[2025-04-14 06:52] LABS: Anion Gap 10 mmol/L (4-12); Blood Urea Nitrogen 70 mg/dL (9-20); Calcium 9.8 mg/dL (8.4-10.2); Carbon Dioxide 29 mmol/L (22-30); Chloride 87 mmol/L (98-107); Glucose 116 mg/dL (65-110); Magnesium 2.7 mg/dL (1.6-2.3); Potassium 4.3 mmol/L (3.4-5.0); Sodium 126 mmol/L (137-145)
[2025-04-14 07:02] LABS: Estimated CRCL calculation 14 ml/min; Estimated Glomerular Filt Rate 8
[2025-04-14 08:05] LABS: Band Neutrophils Percent 46 % (0-6); Eosinophils Absolute Manual 0.14 K/mm3 (0.02-0.50); Eosinophils Percent Manual 1 % (0-4); Lymphocytes Absolute Manual 0.43 K/mm3 (1.1-4.5); Lymphocytes Percent Manual 3 % (18-44); Metamyelocytes Percent 3 %; Monocytes Absolute Manual 0.57 K/mm3 (0.1-0.90); Monocytes Percent Manual 4 % (3-9); Myelocytes Percent 1 %; Neutrophils Absolute Manual 12.67 K/mm3 (1.3-6.7); Neutrophils Percent Manual 42 % (46-73); Total Cells Counted 100
[2025-04-14 08:09] LABS: Anisocytosis 1+; Burr Cells 1+; Hypochromasia 1+; Ovalocytes 1+; Schistocytes None Seen
[2025-04-14 08:10] LABS: Dohle Bodies Present
[2025-04-14] MEDS: CLINDAMYCIN 900 MG/D5W 50 ML 900 MG/50 ML PIGGYBACK 50 MG IVPB ×2 (08:49→21:52)
[2025-04-14 09:18] LABS: Hepatitis B Surface Antigen Negative (Negative)
[2025-04-14 10:41] LABS: HBSAB RETEST 1 8.20 S/C
[2025-04-14 10:42] LABS: HBSAB RETEST 2 7.90 S/C; Hepatitis B Surface Anti Res Indeterminate
[2025-04-14 10:52] LABS: Partial Thromboplastin Time 39.5 Seconds (22.3-36.8)
--- NOTE | 2025-04-14 14:07 | P.PNNP_ITS ---
Progress Note: A&P Assessment and Plan (1) End stage renal disease: Code(s): N18.6 - End stage renal disease Status: Chronic Assessment and Plan: * HD today * continue Sat/Sat/Saturday dialysis schedule while hospitalized * follow electrolytes, volume status, and clearance * outpatient dialysis center = [facility] * primary inspector rag sorting = Dr. Farnsworth FULL CONSULT TO FOLLOW... Subjective Date/time seen: 04/14/25 14:07 Interval history: Following for end stage renal disease on hemodialysis. Tolerating dialyisis treatment at the time of my visit (see on HD at 2:00pm); somewhat sleepy when seen but in no acute distress with his only complaint being that he was hungry/thrirsty (currently NPO); no other issues/events overnight or earlier this morning. Exam 2 Narrative: General: WD/WN male in NAD Heart: normal S1 and S2; no rub Lungs: clear anteriorly Abdomen: soft, nontender, nondistended, positive bowel sounds Extremities: no cyanosis or clubbing; 1 - 2+ edema Skin: left foot edematous with erythema and scattered blisters; + tenderness with palpation Objective Data Vital Signs Vital Signs: Vital Signs Temp Pulse Resp BP Pulse Ox O2 Del Method 04/14/25 14:00 97.2 F L 81 18 146/63 H 98 04/14/25 13:59 98.1 F 80 16 155/74 H 98 04/14/25 08:00 Room Air 04/14/25 05:03 99.2 F 76 18 128/63 93 04/14/25 01:39 Room Air 04/14/25 01:32 98.7 F 87 18 138/51 L 98 04/14/25 00:53 98.1 F 86 18 132/66 99 04/13/25 23:32 99.0 F 91 18 137/65 97 Intake/Output Intake/Output: Intake & Output 04/11/25 04/12/25 04/13/25 04/14/25 23:59 23:59 23:59 23:59 Intake Total 100 157 Output Total 0 Balance 100 157 Meds/Results Medications: Active Medications Generic Name Dose Route Start Last Admin Trade Name Freq PRN Reason Stop Dose Admin Acetaminophen 650 mg 04/14/25 14:42 Acetaminophen 325 Mg Tablet PO Q6H PRN Mild Pain (1-3) or Fever Hydrocodone Bitart/Acetaminophen 1 tab 04/14/25 14:56 Hydrocodone/Acetaminophen (*Crx) 5-325 Mg Tablet PO Q4H PRN Pain Rated 4-6 Cyclobenzaprine HCl 10 mg 04/14/25 14:56 Cyclobenzaprine Hcl 10 Mg Tablet PO Q8H PRN restless leg(s) Heparin Sodium (Porcine) 7,000 units 04/14/25 00:53 04/14/25 11:17 Heparin Sodium 5,000 Units/Ml Vial IV PUSH 7,000 units PRN PRN Administration aPTT less than 55 seconds Heparin Sodium (Porcine) 3,500 units 04/14/25 00:53 Heparin Sodium 5,000 Units/Ml Vial IV PUSH PRN PRN aPTT 55 - 70 seconds Hydralazine HCl 50 mg 04/14/25 17:00 Hydralazine Hcl 50 Mg Tablet PO TID [facility] Hydromorphone HCl 0.5 mg 04/14/25 14:56 Hydromorphone Hcl Inj (*Crx) 1 Mg/Ml Syr IV PUSH Q3H PRN Pain Rated 7-10 Albumin Human 50 mls @ 999 mls/hr 04/14/25 12:37 Albutein IVPB 04/15/25 12:36 Q10M PRN HYPOTENSION Meropenem 0.5 gm/ Sodium 100 mls @ 200 mls/hr 04/14/25 18:00 Chloride IVPB DAILY@1800 [facility] Clindamycin Phosphate 900 mg in 50 mls @ 50 mls/hr 04/14/25 22:00 Cleocin 900 Mg/D5w 50 Ml IVPB Q8HR [facility] Lidocaine/Prilocaine 1 each 04/14/25 12:42 Lidocaine/Prilocaine Cream 2.5-2.5% Tube TOPICAL WITH DIALYSIS PRN for dialysis Protocol Metoprolol Succinate 12.5 mg 04/15/25 09:00 Metoprolol Succinate Ext Rel 12.5 Mg Tabcr PO DAILY [facility] Ondansetron HCl 4 mg 04/14/25 14:42 Ondansetron Inj 4 Mg/2 Ml Vial IV PUSH Q6H PRN Nausea And Vomiting Ropinirole HCl 0.25 mg 04/14/25 21:00 Ropinirole Hcl 0.25 Mg Tablet PO HS [facility] Rosuvastatin Calcium 10 mg 04/14/25 21:00 Rosuvastatin 10 Mg Tablet PO HS [facility] Vancomycin HCl 1 each 04/14/25 00:07 Vancomycin For Hemodialysis IVPB PRN PRN Vancomycin Protocol Radiology Results: ITS Impressions Tibia/Fibula X-Ray 04/13/25 17:52 IMPRESSION: 1: NO ACUTE BONE OR JOINT ABNORMALITY IDENTIFIED. Foot X-Ray 04/13/25 18:03 Impression: 1: Multiple fractures of the hindfoot and tarsal bones with associated displacement of the calcaneal fracture fragments as well as the navicular bone. These findings may be posttraumatic, although underlying infection should be considered in the appropriate clinical setting. Head CT 04/13/25 20:09 IMPRESSION: 1. No acute intracranial findings. Venous Doppler Study 04/13/25 21:59 IMPRESSION: 1: Deep venous thrombosis of the left peroneal and posterior tibial veins. Foot CT 04/14/25 08:27 IMPRESSION: 1. No malalignment and extensive osseous destructive changes including both fractures/fragmentation of the bones and more erosive appearing osteolysis in the left mid and hindfoot. Appearance similar to advanced Charcot joint although no such changes are seen at the contralateral right foot and there is also a large abscess extending throughout the surrounding soft tissues in the mid/hindfoot and extending posterior to the ankle into the distal calf. This suggests a likely subacute combination of trauma and infection multiple regions of likely osteomyelitis involving the majority of the bones the mid and hindfoot including the posterior calcaneus and distal tibia. 2. In addition to scattered gas seen within the abscess which extends into the posterior distal calf there are numerous foci of soft tissue gas in the forefoot which raises concern for necrotizing fasciitis which is ultimately a clinical diagnosis. Chest X-Ray 04/14/25 09:35 IMPRESSION: 1. No acute cardiopulmonary findings given portable technique. Labs Labs: Laboratory Tests 04/14/25 05:47 04/14/25 05:47 Estimated GFR 8 L Glucose 116 H Calcium 9.8 Phosphorus 3.4 Magnesium 2.7 H
--- NOTE | 2025-04-14 14:43 | P.PNCROSS_ITS ---
Event Note Event Note Event Note: Patient is a 44-year-old male who presented to the emergency department after a fall at home resulting in and down time of over 5 hours outside following this incident patient came to the emergency department due to complaints of worsening left foot pain and swelling reports he typically wears compression stockings and after removal was found to be greatly increased in size. Patient with past medical history of ESRD on dialysis on transplant list. Patient had been seen assessed by previous provider same day upon my follow-up evaluation and assessment patient initiated on clindamycin vancomycin and meropenem as well as a heparin drip due to venous Doppler showing a posterior tibial vein DVT in left peroneal. Patient has consult to Ortho for further evaluation follow-up CT large abscess extending throughout the surrounding soft tissues in the mid/hindfoot and extending posterior to the ankle into the distal calf. This suggests a likely subacute combination of trauma and infection multiple regions of likely osteomyelitis involving the majority of the bones the mid and hindfoot including the posterior calcaneus and distal tibia. In addition to scattered gas seen within the abscess which extends into the posterior distal calf there are numerous foci of soft tissue gas in the forefoot which raises concern for necrotizing fasciitis. Nephrology was also consulted to manage patient's ESRD/dialysis. Patient has remained NPO pending ortho possible surgical lucia luation and intervention. Patient's dialysis is Saturday, plan for dialysis today. Patient with no acute complaints other than being hungry thirsty denied any chest pain shortness a breath, nausea vomiting minimal right lower extremity pain.
[2025-04-14] MEDS: EPOETIN ALFA-EPBX 10,000 UNITS/ML VIAL 10000 UNITS IV PUSH (15:54)
[2025-04-14] MEDS: HYDROcodone/acetaminophen (*CRX) 5-325 MG TABLET 1 TAB PO (18:10)
[2025-04-14] MEDS: MEROPENEM 500 MG in SODIUM CHLORIDE 0.9% IV 100 ML 200 ML IVPB (18:44)
[2025-04-14 19:00] LABS: Partial Thromboplastin Time 47.5 Seconds (22.3-36.8)
[2025-04-14] MEDS: HEPARIN SOD/D5W 100 UNITS/ML 25,000 UNITS/250 ML BAG 21 UNITS IV CONT (19:33)
[2025-04-14] MEDS: ROSUVASTATIN 10 MG TABLET PO (21:48)
[2025-04-14] MEDS: VANCOMYCIN 500 MG/NS 100 ML 500 MG/100 ML BAG 100 MG IVPB (23:08)
[2025-04-15 01:40] LABS: Hematocrit 30.2 % (42.0-52.0); Hemoglobin 9.4 g/dL (14.0-18.0); Mean Corpuscular HGB Conc 31.1 g/dl (32-36); Mean Corpuscular Hemoglobin 30.8 pg (26-34); Mean Corpuscular Volume 99.0 fl (80-100); Platelet Count Result 195 k/mm3 (150-375); Red Blood Count 3.05 M/mm3 (4.6-6.20); White Blood Count 15.9 K/mm3 (4.5-10.0)
[2025-04-15 01:53] LABS: Partial Thromboplastin Time 49.3 Seconds (22.3-36.8)
[2025-04-15 02:05] LABS: Alanine Aminotransferase 14 U/L (6-50); Albumin Level 2.9 g/dL (3.5-5.1); Alkaline Phosphatase 242 U/L (38-126); Anion Gap 7 mmol/L (4-12); Aspartate Amino Transferase 37 U/L (17-59); Bilirubin,Total 2.1 mg/dL (0.2-1.3); Blood Urea Nitrogen 41 mg/dL (9-20); Calcium 9.5 mg/dL (8.4-10.2); Carbon Dioxide 28 mmol/L (22-30); Chloride 96 mmol/L (98-107); Estimated CRCL calculation 19 ml/min; Estimated Glomerular Filt Rate 12; Glucose 150 mg/dL (65-110); Magnesium 2.6 mg/dL (1.6-2.3); Potassium 4.2 mmol/L (3.4-5.0); Sodium 131 mmol/L (137-145); Total Protein 6.8 g/dL (6.3-8.2)
[2025-04-15] MEDS: HEPARIN SOD/D5W 100 UNITS/ML 25,000 UNITS/250 ML BAG 24 UNITS IV CONT (02:09)
[2025-04-15] MEDS: CLINDAMYCIN 900 MG/D5W 50 ML 900 MG/50 ML PIGGYBACK 50 MG IVPB ×3 (05:51→21:16)
[2025-04-15 06:00] VITALS: BP 141/47; PULSE 86; RESP 16; TEMP 36.2; O2SAT 96
[2025-04-15 08:49] LABS: Partial Thromboplastin Time 57.6 Seconds (22.3-36.8)
[2025-04-15] MEDS: HEPARIN SOD/D5W 100 UNITS/ML 25,000 UNITS/250 ML BAG 26 UNITS IV CONT (08:56)
[2025-04-15] MEDS: HYDROcodone/acetaminophen (*CRX) 5-325 MG TABLET 1 TAB PO (09:15)
[2025-04-15 09:16] VITALS: PULSE 86
[2025-04-15] MEDS: METOPROLOL SUCCINATE EXT REL 12.5 MG TABCR PO (09:16)
--- NOTE | 2025-04-15 09:35 | PM.CNOR ---
Assessment and Plan Assessment and plan (1) DVT (deep venous thrombosis): Qualifiers: Affected thrombotic vein of extremity: peroneal Chronicity: acute DVT location: lower extremity Laterality: left Qualified Code(s): I82.452 - Acute embolism and thrombosis of left peroneal vein Code(s): I82.409 - Acute embolism and thrombosis of unspecified deep veins of unspecified lower extremity Status: Acute Assessment and Plan: heparin drip has been initiated by the hospitalist service. (2) Hemodialysis patient: Code(s): Z99.2 - Dependence on renal dialysis Status: Acute (3) End-stage renal disease on hemodialysis: Code(s): N18.6 - End stage renal disease; Z99.2 - Dependence on renal dialysis Status: Acute (4) End stage renal disease: Code(s): N18.6 - End stage renal disease Status: Chronic Assessment and Plan: Patient is currently on the kidney transplant list at [facility]. Nephrology following. (5) Electrolyte abnormality: Code(s): E87.8 - Other disorders of electrolyte and fluid balance, not elsewhere classified Status: Acute (6) Osteomyelitis: Code(s): M86.9 - Osteomyelitis, unspecified Status: Acute Assessment and Plan: Continue IV antibiotics. (7) Cellulitis: Code(s): L03.90 - Cellulitis, unspecified Status: Acute Assessment and Plan: Patient is currently on IV antibiotics. Continue IV antibiotics. (8) Abscess of foot: Code(s): L02.619 - Cutaneous abscess of unspecified foot Status: Acute Assessment and Plan: Recommend transfer to tertiary care center at [facility] given he has previously established and has been evaluated for this condition. (9) Charcot arthropathy: Code(s): M14.60 - Charcot's joint, unspecified site Status: Acute Assessment and Plan: Patient reports a known history of Charcot to the left lower extremity for which he has previously been evaluated at [facility] with previous radiographs confirming such a diagnosis. Radiographs of the left in the emergency room initially revealed concerns for Multiple fractures of the hindfoot and tarsal bones with displacement of the calcaneal fracture fragments as well as the navicular bone. In this setting, these changes appear to be neuropathic. A CT scan of the left foot was obtained which again confirms numerous fractures and cortical erosions throughout the mid and hindfoot as well as soft tissue gas beginning distally in the soft tissues around the great toe and extending to the soft tissue of the dorsal and distal forefoot. On exam, extensive edema in the left lower extremity and foot. Large blood-filled blisters on the medial malleolus and great toe with open wound between the hallux and 2nd ray. Unable to palpate pedal pulse. Decreased sensation at baseline. Given patient's current medical condition and previous establish care at [facility] as well as end-stage renal disease on the kidney transplant list, recommend patient be transferred to [facility] for surgical evaluation and possible left BKA. Contacted hospitalist service regarding transfer recommendations, they will begin process for request. Plan Reviewed history, exam, radiographs and current labs with attending MD and covering surgeon, Dr. Moore, who agrees with current plan as indicated above. No further recommendations from Dr. Moore at this time. History of Present Illness HPI Consult date: 04/15/25 Chief complaint: foot abscess,ostemomyelitis Narrative: 44-year-old male presented to the emergency room from home after a fall resulting in over 5 hours of laying on the ground outside. Per patient, he has had chronic issues with his left foot for which he has been seen at [facility]. He notes a history of Charcot arthropathy for which he is awaiting evaluation by a foot and ankle specialist at [facility]. He also has a history of end-stage renal disease on dialysis and is on the transplant list. he has extensive soft tissue swelling to the left lower foot and extremity with multiple blood-filled blisters. He reports this has been a progressive problem, worsening as of late. Radiographs of the left in the emergency room initially revealed concerns for Multiple fractures of the hindfoot and tarsal bones with displacement of the calcaneal fracture fragments as well as the navicular bone. In this setting, these changes appear to be neuropathic. A CT scan of the left foot was obtained which again confirms numerous fractures and cortical erosions throughout the mid and hindfoot as well as soft tissue gas beginning distally in the soft tissues around the great toe and extending to the soft tissue of the dorsal and distal forefoot. Patient was also found to have DVT in the left lower extremity and was started on a heparin drip. Orthopedic consult requested for concerns of multiple fractures, questionable osteomyelitis versus necrotizing fasciitis. Patient admitted for heparin drip an IV antibiotics Review of Systems Review of Systems: All systems reviewed & are unremarkable except as noted in HPI and below PMFSH Past Medical History Medical History (Updated 04/15/25 @ 11:54 by GONZÁLEZ Franco) Charcot arthropathy Coronary artery disease Anemia in chronic kidney disease Hyperlipidemia Hypertension End-stage renal disease on hemodialysis on transplant list at [facility] Surgical History Surgical History History of cardiac catheterization (05/2024) History of coronary artery stent placement (05/2024) at [facility] Status post creation of arteriovenous fistula left upper extremity Family History Family History Mother Acute myocardial infarction Father Acute myocardial infarction Sibling Diabetes mellitus Social History Social History Social History: Surrogate medical decision maker: Virginia Bustamante, girlfrienmahamed. Code status: Full code. Years smoked: 23 Smoking status: Never smoker Tobacco type: cigars Smoking end date: 09/20/23 Alcohol intake: never Substance use: never Substance use type: marijuana Do You Feel Safe in your Home?: Yes Lack of Transportation: No Lack of Food: Often True Current Housing: I Have Housing Concerned About Future Housing: YES Difficulty Paying Gas/Electric Bills: Decline to Answer Difficulty Paying for Meds: No Currently Unemployed: No Education: High School Diploma/GED Difficulty w/ Childcare or Family Care: No Additional living arrangements comments: Lives with girlfriend. Additional occupation/education comments: Disabled. Spiritual care concerns: No Meds Home Medications and Allergies Home Medications ?Medication ?Instructions ?Recorded ?Confirmed ?Type amlodipine 10 mg tablet 10 mg PO DAILY 11/11/24 04/14/25 History calcium acetate(phosphat bind) 667 667 mg PO QID 11/11/24 04/14/25 History mg capsule cyclobenzaprine 10 mg tablet 10 mg PO Q8H PRN restless leg(s) 11/11/24 04/14/25 History furosemide 80 mg tablet 80 mg PO Q12H 11/11/24 04/14/25 History hydralazine 50 mg tablet 50 mg PO TID 11/11/24 04/14/25 History metoprolol succinate 25 mg 12.5 mg PO DAILY 11/11/24 04/14/25 History tablet,extended release 24 hr ropinirole 0.25 mg tablet 0.25 mg PO HS 11/11/24 04/14/25 History rosuvastatin 10 mg tablet 10 mg PO HS 11/11/24 04/14/25 History Allergies Allergy/AdvReac Type Severity Reaction Status Date / Time No Known Allergies Allergy Verified 04/13/25 17:21 Vital Signs Vital Signs - 24 hr 04/14/25 13:59 04/14/25 14:00 04/14/25 14:08 Temperature 36.7 C 36.2 C L Pulse Rate 80 81 78 Respiratory Rate 16 18 Blood Pressure 155/74 H 146/63 H 151/69 H Pulse Oximetry 98 98 04/14/25 14:15 04/14/25 14:30 04/14/25 14:45 Temperature Pulse Rate 78 81 78 Respiratory Rate Blood Pressure 153/73 H 150/71 H 150/73 H Pulse Oximetry 04/14/25 15:00 04/14/25 15:15 04/14/25 15:30 Temperature Pulse Rate 77 80 80 Respiratory Rate Blood Pressure 141/72 H 144/71 H 155/65 H Pulse Oximetry 04/14/25 15:45 04/14/25 16:00 04/14/25 16:15 Temperature Pulse Rate 81 80 79 Respiratory Rate Blood Pressure 158/71 H 160/70 H 151/70 H Pulse Oximetry 04/14/25 16:30 04/14/25 16:45 04/14/25 17:00 Temperature Pulse Rate 81 83 85 Respiratory Rate Blood Pressure 153/70 H 151/71 H 152/68 H Pulse Oximetry 04/14/25 17:15 04/14/25 17:30 04/14/25 17:38 Temperature Pulse Rate 86 85 Respiratory Rate Blood Pressure 161/71 H 151/69 H 135/68 Pulse Oximetry 04/14/25 17:43 04/14/25 19:50 04/15/25 06:00 Temperature 36.8 C 36.4 C L 36.2 C L Pulse Rate 85 85 86 Respiratory Rate 16 20 16 Blood Pressure 151/67 H 130/53 L 141/47 H Pulse Oximetry 97 99 96 04/15/25 09:16 Temperature Pulse Rate 86 Respiratory Rate Blood Pressure Pulse Oximetry Exam Const: General: ill appearing chronically, malnourished and thin HENMT: Head: normal to inspection Neck: Neck: normal visual inspection Resp: Effort & Inspection: normal respiratory effort Extrem: Right lower extremity: lower leg ( Wound over the proximal fibula, see below.) Left lower extremity: lower leg ( minimal muscular definition.), ankle Details: abnormal to inspection and swelling and foot Details: abnormal to inspection ( swelling, ecchymosis, blood-filled blisters, open wounds.), abnormal ROM of toe ( Minimal range of motion), ecchymosis, crepitus, vascular exam ( unable to palpate) Details: not cool and motor-sensory exam light-touch abnormal; abnormal capillary refill, abnormal to inspection and no foreign bodies Other: Patient has significant muscle atrophy bilateral lower extremities. Little to no calf definition. He has a large wound on the right lateral calf over the proximal fibula. Wound is 7 x 7 x 0.1 cm, no drainage. No surrounding erythema. Left lower extremity with significant edema, swelling, extensive blood flow blistering on the medial ankle and hallux with an open wound between the hallux and 2nd ray. Unable to palpate pedal pulses. Decreased sensation. Psych: Appearance: disheveled Mental Status: mental status grossly normal Results Labs 04/15/25 01:36 04/15/25 01:36 Labs: Abnormal lab results 04/14/25 04/14/25 04/15/25 Range/Units 10:26 18:32 01:36 WBC 15.9 H (4.5-10.0) K/mm3 RBC 3.05 L (4.6-6.20) M/mm3 Hgb 9.4 L (14.0-18.0) g/dL Hct 30.2 L (42.0-52.0) % MCHC 31.1 L (32-36) g/dl RDW 15.7 H (11.5-14.5) % APTT 39.5 H 47.5 H 49.3 H (22.3-36.8) Seconds Sodium 131 L (137-145) mmol/L Chloride 96 L (98-107) mmol/L BUN 41 H D (9-20) mg/dL Creatinine 5.32 H (0.7-1.3) mg/dL Estimated GFR 12 L (59 - ) Glucose 150 H (65-110) mg/dL Magnesium 2.6 H (1.6-2.3) mg/dL Total Bilirubin 2.1 H (0.2-1.3) mg/dL Alkaline Phosphatase 242 H (38-126) U/L Albumin 2.9 L (3.5-5.1) g/dL 04/15/25 Range/Units 08:12 WBC (4.5-10.0) K/mm3 RBC (4.6-6.20) M/mm3 Hgb (14.0-18.0) g/dL Hct (42.0-52.0) % MCHC (32-36) g/dl RDW (11.5-14.5) % APTT 57.6 H (22.3-36.8) Seconds Sodium (137-145) mmol/L Chloride (98-107) mmol/L BUN (9-20) mg/dL Creatinine (0.7-1.3) mg/dL Estimated GFR (59 - ) Glucose (65-110) mg/dL Magnesium (1.6-2.3) mg/dL Total Bilirubin (0.2-1.3) mg/dL Alkaline Phosphatase (38-126) U/L Albumin (3.5-5.1) g/dL H & H 04/13/25 04/14/25 04/15/25 Range/Units 20:34 05:47 01:36 Hgb 10.7 L 9.4 L 9.4 L (14.0-18.0) g/dL Hct 33.9 L 30.3 L 30.2 L (42.0-52.0) % Coagulation 04/13/25 Range/Units 20:34 INR 1.3 All other labs normal.
--- NOTE | 2025-04-15 10:00 | P.CDI_ITS ---
CDI Query Clarification Request BMI: 30.1 Nutritional Diagnostic Statement: Please refer to the comprehensive nutrition assessment for further information. If you agree with diagnosis of Severe protein calorie malnutrition related to chronic loss of appetite as evidenced by intakes <75% needs >1 month; weight loss 12%/5 months; moderate muscle wasting and fat loss to temporalis, facial cheeks, clavicles. Please specify severity if known: * Mild * Moderate * Severe * Other/Unknown <Ainsley Noriega RN - Last Filed: 04/15/25 10:01> Clarified Diagnosis Clarified Diagnosis: Severe protein calorie malnutrition related to chronic loss of appetite as evidenced by intakes <75% needs >1 month; weight loss 12%/5 months; moderate muscle wasting and fat loss to temporalis, facial cheeks, clavicles <Jayne Teixeira APRN - Last Filed: 04/15/25 10:33>
--- NOTE | 2025-04-15 13:32 | P.CONNP_ITS ---
Assessment and Plan Assessment and plan (1) End stage renal disease: Code(s): N18.6 - End stage renal disease Status: Chronic Assessment and Plan: * HD tomorrow * continue Sat/Sat/Saturday dialysis schedule while hospitalized * follow electrolytes, volume status, and clearance * outpatient dialysis center = [facility] * primary patcher bowling ball = Dr. Farnsworth (2) Necrotizing fasciitis: Code(s): M72.6 - Necrotizing fasciitis Status: Acute Assessment and Plan: * as noted by left foot CT scan: * no malalignment and extensive osseous destructive changes including both fractures/fragmentation of the bones and more erosive appearing osteolysis in the left mid and hindfoo. * appearance similar to advanced Charcot joint although no such changes are seen at the contralateral right foot and there is also a large abscess extending throughout the surrounding soft tissues in the mid/hindfoot and extending posterior to the ankle into the distal calf. This suggests a likely subacute combination of trauma and infection multiple regions of likely osteomyelitis involving the majority of the bones the mid and hindfoot including the posterior calcaneus and distal tibia * in addition to scattered gas seen within the abscess which extends into the posterior distal calf there are numerous foci of soft tissue gas in the forefoot which raises concern for necrotizing fasciitis which is ultimately a clinical diagnosis * follow culture data * Orthopedic recommendations noted: * will need surgical intervention -- possible left BKA... * planned transfer to tertiary care center for further evaluation/treatment * pain control * on antibiotics (3) DVT (deep venous thrombosis): Qualifiers: Affected thrombotic vein of extremity: peroneal Chronicity: acute DVT location: lower extremity Laterality: left Qualified Code(s): I82.452 - Acute embolism and thrombosis of left peroneal vein Code(s): I82.409 - Acute embolism and thrombosis of unspecified deep veins of unspecified lower extremity Status: Acute Assessment and Plan: * as noted by venous doppler of left lower extremity: * deep venous trhobosis of the left posterior tibial and peroneal veins * initiated on heparin gtt (4) Osteomyelitis: Code(s): M86.9 - Osteomyelitis, unspecified Status: Acute Assessment and Plan: * as suspected based on admission imaging * see #2 (5) Hypertension: Code(s): I10 - Essential (primary) hypertension Status: Acute Assessment and Plan: * reasonable control at this time * resumed on home BP medications * follow trend of hemodynamics (6) Anemia: Code(s): D64.9 - Anemia, unspecified Status: Chronic Assessment and Plan: * due to ESRD likely worsened by acute illness/infection * monitor closely since on heparin gtt * Epogen with HD * follow trend of H/H I will continue to follow the patient with you while he remains hospitalized and make further recommendations as deemed necessary. Thank you for allowing me to participate in the care of this patient. L History of Present Illness Reason for Consult Consult date: 04/15/25 Reason for consult: end stage renal disease Chief Complaint Chief complaint: foot abscess,ostemomyelitis History of Present Illness Narrative: The patient is a 44-year-old male with a past medical history as outlined below who presented to [facility] Emergency Room for evaluation of left foot pain/swelling. Apparently, a day prior to presentation to the ER, he sustained a ground level fall. Following the fall, he reportedly was unable to get up and laid on the ground for approximately 5 hours. He stated that he did not his head or lose consciousness prior to or after the fall and thinks he just lost his balance. Eventually, somewhat helped him up and back to his house. Following the fall, he did note increased pain to his left foot and a skin tear to his right lower leg. However, the pain is left foot has been significantly worsening/increasing since the fall and he has noted a marked increase in swelling/edema to his left foot as well in association with multiple blister formation. Given these constellation of symptoms as mentioned following the fall, he presented to the emergency room for further assessment. Workup and evaluation emergency room demonstrated the patient be hemodynamically stable and afebrile but in significant pain. Routine blood tests were significant for white blood cell count of 14.3, hemoglobin 10.7, hematocrit 33.9, platelet count of 186, sodium 128, potassium 4.3, chloride 85, bicarb 32, BUN 62, creatinine 8.41, glucose 145, calcium 10.6, total bilirubin 3.0, AST 41, ALT 19, alkaline phosphatase 227, CPK 86, C-reactive protein greater than 45, and an albumin of 3.5. Given his significant lower extremity swelling and edema, a venous Doppler of that extremity was done which demonstrated left peroneal and posterior tibial vein DVTs. A left foot chest x-ray was notable for multiple fractures of the hindfoot and tarsal bones with associated displacement of the calcaneal fracture fragments as well as the navicular bone. A subsequent CT scan of the left foot was done which was noteworthy for malalignment and extensive osseous destructive changes including both fractures/fragmentation of the bones and more erosive appearing osteolysis in the left mid and hindfoot with a large abscess extending throughout the surrounding soft tissues in the mid/ hindfoot and extending posterior to the ankle into the distal calf in addition to scattered gas within the abscess which extends into the posterior distal calf with numerous foci of soft tissue gas in the forefoot raising the concern for necrotizing fasciitis. his head CT was without acute findings. Given these laboratory and imaging study results, appropriate cultures were obtained and he was initiated on broad-spectrum IV antibiotics along with a heparin drip. Orthopedic surgery was consulted from the ER and he was subsequently admitted to the hospital for further evaluation and therapy. Since his admission, he received dialysis yesterday without any issues or problems. He has since been seen by Orthopedic surgery earlier this morning and given the extensive findings as noted by his imaging studies, they are recommending transfer to a tertiary care facility for further intervention/ surgery regarding his left foot. Renal consultation was requested due to his end-stage renal disease. The patient normally dialyzed on a Saturday, Saturday, Saturday dialysis schedule at [facility] under the care of Dr. Sharon Farnsworth. From a dialysis perspective, he is usually compliant with his treatments and has relative stability in his monthly labs however he does have ongoing issues and problems with significant fluid gains in between his dialysis treatments and is sometimes required an extra session of dialysis or dry ultrafiltration in effort to optimize his volume status. He last received dialysis on Saturday at his outpatient clinic and received dialysis here at [facility] yesterday in effort to maintain his outpatient schedule. Currently, at the time my evaluation, he does not appear to be any acute distress. Review of Systems 2 Review of Systems: As per HPI. [facility] Past Medical History Medical History (Updated 04/15/25 @ 15:49 by Jayne Teixeira, MEI) Subdural hematoma, chronic Charcot arthropathy Coronary artery disease Anemia in chronic kidney disease Hyperlipidemia Hypertension End-stage renal disease on hemodialysis on transplant list at [facility] Surgical History Surgical History History of cardiac catheterization (05/2024) History of coronary artery stent placement (05/2024) at [facility] Status post creation of arteriovenous fistula left upper extremity Family History Family History Mother Acute myocardial infarction Father Acute myocardial infarction Sibling Diabetes mellitus Social History Social History Social History: Surrogate medical decision maker: Virginia Bustamante, girlfriend. Code status: Full code. Years smoked: 23 Smoking status: Never smoker Tobacco type: cigars Smoking end date: 09/20/23 Alcohol intake: never Substance use: never Substance use type: marijuana Do You Feel Safe in your Home?: Yes Lack of Transportation: No Lack of Food: Often True Current Housing: I Have Housing Concerned About Future Housing: YES Difficulty Paying Gas/Electric Bills: Decline to Answer Difficulty Paying for Meds: No Currently Unemployed: No Education: High School Diploma/GED Difficulty w/ Childcare or Family Care: No Additional living arrangements comments: Lives with girlfriend. Additional occupation/education comments: Disabled. Spiritual care concerns: No Meds Home Medications and Allergies Home Medications ?Medication ?Instructions ?Recorded ?Confirmed ?Type amlodipine 10 mg tablet 10 mg PO DAILY 11/11/2403/23 History calcium acetate(phosphat bind) 667 667 mg PO QID 11/1104/14/25 History mg capsule cyclobenzaprine 10 mg tablet 10 mg PO Q8H PRN restless leg(s) 11/11/24 04/14/25 History furosemide 80 mg tablet 80 mg PO Q12H 11/11/2404/14 History hydralazine 50 mg tablet 50 mg PO TID 11/11/24 History metoprolol succinate 25 mg 12.5 mg PO DAILY 11/11/24 0 04/14/25 History tablet,extended release 24 hr ropinirole 0.25 mg tablet 0.25 mg PO HS 11/11/2404/14 History rosuvastatin 10 mg tablet 10 mg PO HS 11/11/24 5 History Allergies Allergy/AdvReac Type Severity Reaction Status Date / Time No Known Allergies Allergy Verified 04/13/25 17:21 Vital Signs Vital Signs Temp Pulse Resp BP Pulse Ox O2 Del Method 04/15/25 09:16 86 04/15/25 08:00 Room Air 04/15/25 06:00 97.1 F L 86 16 141/47 H 96 04/14/25 19:50 97.5 F L 85 20 130/53 L 99 04/14/25 17:43 98.2 F 85 16 151/67 H 97 04/14/25 17:38 85 135/68 04/14/25 17:30 151/69 H 04/14/25 17:15 86 161/71 H 04/14/25 17:00 85 152/68 H 04/14/25 16:45 83 151/71 H 04/14/25 16:30 81 153/70 H 04/14/25 16:15 79 151/70 H 04/14/25 16:00 80 160/70 H 04/14/25 15:45 81 158/71 H 04/14/25 15:30 80 155/65 H 04/14/25 15:15 80 144/71 H 04/14/25 15:00 77 141/72 H 04/14/25 14:45 78 150/73 H 04/14/25 14:30 81 150/71 H 04/14/25 14:15 78 153/73 H 04/14/25 14:08 78 151/69 H 04/14/25 14:00 97.2 F L 81 18 146/63 H 98 04/14/25 13:59 98.1 F 80 16 155/74 H 98 Exam 2 Narrative: GENERAL APPEARANCE: well developed well nourished male in no acute distress HEENT: normocephalic, atraumatic, normal conjunctiva and sclera, nares patient NECK: no lymphadenopathy, thyromegaly, or JVD MOUTH: normal lips, teeth, and gums CARDIOVASCULAR: RRR, normal S1 and S2, no rub RESPIRATORY: clear to auscultation bilaterally ABDOMEN: soft, nontender, nondistended, positive bowel sounds present EXTREMITIES: no evidence of cyanosis, clubbing, 2+ edema (LLE > RLE) NEUROLOGICAL: alert and oriented x 3; CN II - XII intact bilaterally; no focal deficits noted SKIN: left foot with several blood filled blisters + swelling + erythema; right calf wound noted Extrem: Other: Results Lab Results 04/15/25 01:36 04/15/25 01:36 Lab results: Most recent lab results Calcium 9.5 mg/dL (8.4-10.2) 04/15/25 01:36 Phosphorus 3.4 mg/dL (2.5-4.5) 04/14/25 05:47 Magnesium 2.6 mg/dL (1.6-2.3) H 04/15/25 01:36
--- NOTE | 2025-04-15 13:59 | P.PNIM_ITS ---
Progress Note: A&P Assessment and Plan (1) Necrotizing fasciitis: Code(s): M72.6 - Necrotizing fasciitis Status: Acute Assessment and Plan: patient initially admitted after x-ray showed multiple fractures of the hindfoot and tarsal bones with displacement of the calcaneal fracture fragments at which time orthopedics was consulted for evaluation. Patient was severe edema in left base starters noted throughout had a follow-up which I personally reviewed CT LLE which also showed cortical erosions throughout the mid and hindfoot as well as soft tissue gas beginning distally in the soft tissues around the great toe and extending to the soft tissue of the dorsal and distal forefoot. as discussed with orthopedics plan for transfer to [facility] has been accepted and pending bed placement * continue vancomycin, clindamycin, meropenem * blood cultures pending NGTD * wound cultures pending * pain management with oral [place] and IVP dilaudid * NWB (2) Osteomyelitis: Code(s): M86.9 - Osteomyelitis, unspecified Status: Acute Assessment and Plan: See Above (3) Charcot arthropathy: Code(s): M14.60 - Charcot's joint, unspecified site Status: Acute Assessment and Plan: Previous HX with workup done at [facility] transfer pending (4) DVT (deep venous thrombosis): Qualifiers: Affected thrombotic vein of extremity: peroneal Chronicity: acute DVT location: lower extremity Laterality: left Qualified Code(s): I82.452 - Acute embolism and thrombosis of left peroneal vein Code(s): I82.409 - Acute embolism and thrombosis of unspecified deep veins of unspecified lower extremity Status: Acute Assessment and Plan: venous Doppler showing left posterior tibial and peroneal veins * heparin GTT * trend labs and monitor for any signs of bleeding * patient was recent history of subdural hematoma 01/2025 (5) End-stage renal disease on hemodialysis: Code(s): N18.6 - End stage renal disease; Z99.2 - Dependence on renal dialysis Status: Acute Assessment and Plan: patient with history of end-stage renal disease on dialysis [facility] reports he is currently on a kidney transplant at [facility] * nephrology consulted and following to assist with patient's dialysis * trend labs monitor electrolytes closely * avoid nephrotoxic medications * patient dialyzed yesterday 04/14/2025 * renal diet (6) Subdural hematoma, chronic: Code(s): I62.03 - Nontraumatic chronic subdural hemorrhage Status: Acute Assessment and Plan: of note this was on 01/2025 patient was transferred to [facility] currently on heparin GTT for DVT will need very close monitoring and is being transferred back to [facility] Hospital. Plan Code status: Full code per patient DVT prophylaxis: hep gtt Stress ulcer prophylaxis: PT/OT notes: NWB Disposition: awaiting transfer to [facility] Hospital Time Spent With Patient Time with patient: Greater than 35 minutes Subjective Date/time seen: 04/15/25 13:59 Interval history: Patient is a 44-year-old male admitted for further evaluation treatment CT large abscess extending throughout the surrounding soft tissues in the mid/hindfoot and extending posterior to the ankle into the distal calf. This suggests a likely subacute combination of trauma and infection multiple regions of likely osteomyelitis involving the majority of the bones the mid and hindfoot including the posterior calcaneus and distal tibia. In addition to scattered gas seen within the abscess which extends into the posterior distal calf there are numerous foci of soft tissue gas in the forefoot which raises concern for necrotizing fasciitis. patient was also to have a posterior and peroneal DVT left extremity. 04/15/2025: patient reports pain is controlled with pain medication this time denies any chest pain shortness a breath, nausea vomiting fever chills. discussed patient with ortho consult we both this time agree patient needs transfer to a higher level of care for potential need of vascular services as well as possible amputation the left lower extremity. spoke with patient regarding need for transfer which time he agrees. Spoke with Dr. Munoz at [facility] who accepted patient for transfer with plans for surgery and vascular consult. Review of Systems Review of Systems: All systems reviewed & are unremarkable except as noted in HPI and below Exam Const: General: comfortable and no acute distress HENMT: Ears: TM's normal bilaterally Face/Nose/Sinus: Normal nares present Mouth: Yes moist mucous membranes Eyes: General: appearance normal, both eyes and all related structures Sclera: sclerae normal Pupils: Equal, round and reactive pupils present Neck: Neck: supple and no JVD Resp: Effort & Inspection: normal respiratory effort Auscultation: clear to auscultation bilaterally Cardio: Rate: regular rate Rhythm: regular rhythm GI: GI Palp: Yes Soft to palpation Auscultation: normal bowel sounds Skin: General skin exam: normal color Other: Multiple blood filled blister on the medial malleolus and great toe with open wound between the hallux Extrem: General: edema left Other: LLE wit severe swelling and multiple blood blisters with non-palpable pulse but present with doppler/Charcot foot noted on imaging with abscess Psych: Mental Status: mental status grossly normal Affect: normal affect Objective Data Vital Signs Vital Signs: Vital Signs - 24 hr 04/14/25 14:00 04/14/25 14:08 04/14/25 14:15 Temperature 97.2 F L Pulse Rate 81 78 78 Respiratory Rate 18 Blood Pressure 146/63 H 151/69 H 153/73 H Pulse Oximetry 98 Oxygen Delivery 04/14/25 14:30 04/14/25 14:45 04/14/25 15:00 Temperature Pulse Rate 81 78 77 Respiratory Rate Blood Pressure 150/71 H 150/73 H 141/72 H Pulse Oximetry Oxygen Delivery 04/14/25 15:15 04/14/25 15:30 04/14/25 15:45 Temperature Pulse Rate 80 80 81 Respiratory Rate Blood Pressure 144/71 H 155/65 H 158/71 H Pulse Oximetry Oxygen Delivery 04/14/25 16:00 04/14/25 16:15 04/14/25 16:30 Temperature Pulse Rate 80 79 81 Respiratory Rate Blood Pressure 160/70 H 151/70 H 153/70 H Pulse Oximetry Oxygen Delivery 04/14/25 16:45 04/14/25 17:00 04/14/25 17:15 Temperature Pulse Rate 83 85 86 Respiratory Rate Blood Pressure 151/71 H 152/68 H 161/71 H Pulse Oximetry Oxygen Delivery 04/14/25 17:30 04/14/25 17:38 04/14/25 17:43 Temperature 98.2 F Pulse Rate 85 85 Respiratory Rate 16 Blood Pressure 151/69 H 135/68 151/67 H Pulse Oximetry 97 Oxygen Delivery 04/14/25 19:50 04/15/25 06:00 04/15/25 08:00 Temperature 97.5 F L 97.1 F L Pulse Rate 85 86 Respiratory Rate 20 16 Blood Pressure 130/53 L 141/47 H Pulse Oximetry 99 96 Oxygen Delivery Room Air 04/15/25 09:16 Temperature Pulse Rate 86 Respiratory Rate Blood Pressure Pulse Oximetry Oxygen Delivery Intake/Output Intake/Output: Intake & Output 04/12/25 04/13/25 04/14/25 04/15/25 23:59 23:59 23:59 23:59 Intake Total 947 346 4568.4 Output Total 3000 Balance 100 -2793 1433.4 Meds/Results Medications: Active Medications Generic Name Dose Route Start Last Admin Trade Name Freq PRN Reason Stop Dose Admin Acetaminophen 650 mg 04/14/25 14:42 Acetaminophen 325 Mg Tablet PO Q6H PRN Mild Pain (1-3) or Fever Hydrocodone Bitart/Acetaminophen 1 tab 04/14/25 14:56 04/15/25 09:15 Hydrocodone/Acetaminophen (*Crx) 5-325 Mg Tablet PO 1 tab Q4H PRN Administration Pain Rated 4-6 Cyclobenzaprine HCl 10 mg 04/14/25 14:56 Cyclobenzaprine Hcl 10 Mg Tablet PO Q8H PRN restless leg(s) Heparin Sodium (Porcine) 7,000 units 04/14/25 00:53 04/15/25 02:08 Heparin Sodium 5,000 Units/Ml Vial IV PUSH 7,000 units PRN PRN Administration aPTT less than 55 seconds Heparin Sodium (Porcine) 3,500 units 04/14/25 00:53 04/15/25 09:01 Heparin Sodium 5,000 Units/Ml Vial IV PUSH 3,500 units PRN PRN Administration aPTT 55 - 70 seconds Hydralazine HCl 50 mg 04/14/25 17:00 04/15/25 13:00 Hydralazine Hcl 50 Mg Tablet PO 50 mg TID CHAPARRITA Administration Hydromorphone HCl 0.5 mg 04/14/25 14:56 Hydromorphone Hcl Inj (*Crx) 1 Mg/Ml Syr IV PUSH Q3H PRN Pain Rated 7-10 Clindamycin Phosphate 900 mg in 50 mls @ 50 mls/hr 04/14/25 22:00 04/15/25 13:03 Cleocin 900 Mg/D5w 50 Ml IVPB 50 mls/hr Q8HR CHAPARRITA Administration Meropenem 500 mg/ Sodium 100 mls @ 200 mls/hr 04/14/25 19:00 04/14/25 18:44 Chloride IVPB 200 mls/hr DAILY@1900 CHAPARRITA Administration Heparin Sodium/Dextrose 25,000 units in 250 mls @ 26 mls/hr 04/14/25 19:30 04/15/25 08:56 Heparin Sodium/D5w 100 Units/Ml IV CONT 2,600 units/hr .Q9H37M CHAPARRITA 26 mls/hr Protocol Administration 2,600 UNITS/HR Lidocaine/Prilocaine 1 each 04/14/25 12:42 Lidocaine/Prilocaine Cream 2.5-2.5% Tube TOPICAL WITH DIALYSIS PRN for dialysis Protocol Metoprolol Succinate 12.5 mg 04/15/25 09:00 04/15/25 09:16 Metoprolol Succinate Ext Rel 12.5 Mg Tabcr PO 12.5 mg DAILY CHAPARRITA Administration Ondansetron HCl 4 mg 04/14/25 14:42 Ondansetron Inj 4 Mg/2 Ml Vial IV PUSH Q6H PRN Nausea And Vomiting Ropinirole HCl 0.25 mg 04/14/25 21:00 04/14/25 21:48 Ropinirole Hcl 0.25 Mg Tablet PO 0.25 mg HS CHAPARRITA Administration Rosuvastatin Calcium 10 mg 04/14/25 21:00 04/14/25 21:48 Rosuvastatin 10 Mg Tablet PO 10 mg HS CHAPARRITA Administration Vancomycin HCl 1 each 04/14/25 00:07 Vancomycin For Hemodialysis IVPB PRN PRN Vancomycin Protocol Radiology Results: ITS Impressions Tibia/Fibula X-Ray 04/13/25 17:52 IMPRESSION: 1: NO ACUTE BONE OR JOINT ABNORMALITY IDENTIFIED. Foot X-Ray 04/13/25 18:03 Impression: 1: Multiple fractures of the hindfoot and tarsal bones with associated displacement of the calcaneal fracture fragments as well as the navicular bone. These findings may be posttraumatic, although underlying infection should be considered in the appropriate clinical setting. Head CT 04/13/25 20:09 IMPRESSION: 1. No acute intracranial findings. Venous Doppler Study 04/13/25 21:59 IMPRESSION: 1: Deep venous thrombosis of the left peroneal and posterior tibial veins. Foot CT 04/14/25 08:27 IMPRESSION: 1. No malalignment and extensive osseous destructive changes including both fractures/fragmentation of the bones and more erosive appearing osteolysis in the left mid and hindfoot. Appearance similar to advanced Charcot joint although no such changes are seen at the contralateral right foot and there is also a large abscess extending throughout the surrounding soft tissues in the mid/hindfoot and extending posterior to the ankle into the distal calf. This suggests a likely subacute combination of trauma and infection multiple regions of likely osteomyelitis involving the majority of the bones the mid and hindfoot including the posterior calcaneus and distal tibia. 2. In addition to scattered gas seen within the abscess which extends into the posterior distal calf there are numerous foci of soft tissue gas in the forefoot which raises concern for necrotizing fasciitis which is ultimately a clinical diagnosis. Chest X-Ray 04/14/25 09:35 IMPRESSION: 1. No acute cardiopulmonary findings given portable technique. Labs Labs: Laboratory Results - last 24 hr 04/14/25 04/15/25 04/15/25 18:32 01:36 08:12 WBC 15.9 H RBC 3.05 L Hgb 9.4 L Hct 30.2 L MCV 99.0 MCH 30.8 MCHC 31.1 L RDW 15.7 H Plt Count 195 MPV 10.2 APTT 47.5 H 49.3 H 57.6 H Sodium 131 L Potassium 4.2 Chloride 96 L Carbon Dioxide 28 Anion Gap 7 BUN 41 H D Creatinine 5.32 H Estim Creat Clear Calc 19 Estimated GFR 12 L Glucose 150 H Calcium 9.5 Magnesium 2.6 H Total Bilirubin 2.1 H AST 37 ALT 14 Alkaline Phosphatase 242 H Total Protein 6.8 Albumin 2.9 L Random Vancomycin 15.0 Quality VTE Prophylaxis VTE prophylaxis: pharmacologic ordered -Patient's previous records reviewed on admission -ER notes reviewed in detail on admission -discussed all findings and current treatment plan with patient/Family/POA -Consultations reviewed for recommendations -Patient's disposition for safe discharge discussed with case therapist Dictation performed by [employer] direct speech recognition software, therefore washing machine striper variants and typographical errors may occur. Hospitalist MIPS Advance Care Plan I have confirmed that the patient's Advanced Care Plan is present, code status is documented, or surrogate decision maker is listed in patient medical record.: Yes Medication Reconciliation I have utilized all available resources to obtain, update and review the patients current medications (includes all prescriptions, OTC, herbals, c annabis, and nutritional supplements).: Yes The patient is not eligible for med reconciliation; the patient is in a emergent medical situation where delaying treatment would jeopardize the patients health.: No
[2025-04-15 15:34] VITALS: BP 140/61; PULSE 77; RESP 16; TEMP 37.1; O2SAT 100
[2025-04-15 15:57] LABS: Partial Thromboplastin Time 58.5 Seconds (22.3-36.8)
[2025-04-15] MEDS: HEPARIN SOD/D5W 100 UNITS/ML 25,000 UNITS/250 ML BAG 28 UNITS IV CONT ×2 (16:12→19:48)
[2025-04-15 16:30] LABS: CRP 29.7 mg/dL (<1.0)
[2025-04-15] MEDS: MEROPENEM 500 MG in SODIUM CHLORIDE 0.9% IV 100 ML 200 ML IVPB (18:01)
[2025-04-15 20:30] VITALS: BP 152/57; PULSE 75; RESP 20; TEMP 36.2; O2SAT 99
[2025-04-15] MEDS: ROSUVASTATIN 10 MG TABLET PO (21:09)
[2025-04-15] MEDS: ONDANSETRON INJ 4 MG/2 ML VIAL IV PUSH (22:31)
[2025-04-15 22:52] LABS: Partial Thromboplastin Time 67.9 Seconds (22.3-36.8)
[2025-04-15 23:27] VITALS: BP 133/45; PULSE 77; RESP 18; TEMP 36.2; O2SAT 96
--- NOTE | 2025-04-15 23:40 | PC.NURSE ---
Patient transferred to [facility]IA EMS. Report called to [place] on .
--- NOTE | 2025-04-16 15:01 | P.TS_ITS ---
Transfer Discharge Sum: Prov Provider Date of admission: 04/14/25 09:11 Primary care physician: Dallas Tejada, Admitting clinician: Lara Kapoor MD Attending physician on admission: Lara Kapoor Consults: 04/13/25 23:58 Consult to Physician Routine Comment: Consulting Provider: Damaso Moore Reason for consultation: Foot abscess, osteomyelitis Has provider been notified: Yes 04/14/25 Consult to Physician Routine Comment: spoke to dr [phone] (,) Consulting Provider: Dalton Sweet Reason for consultation: ESRD on dialysis MWF Has provider been notified: Yes Attending physician on discharge: Hamlet Rust Discharging clinician: Jayne Teixeira Anticipated date of transfer: 04/15/25 Receiving physician/facility: [facility]/Dr. Munoz DS: Admitting Diagnosis Discharge Date 04/16/25 Admitting Diagnosis Necrotizing fasciitis/osteomyelitis/chart ?arthropathy/acute DVT LLE/ESRD/LLE abscess DS: Discharge Diagnosis Discharge Diagnosis (1) Necrotizing fasciitis: Code(s): M72.6 - Necrotizing fasciitis Status: Acute Assessment and Plan: patient initially admitted after x-ray showed multiple fractures of the hindfoot and tarsal bones with displacement of the calcaneal fracture fragments at which time orthopedics was consulted for evaluation. Patient was severe edema in left base starters noted throughout had a follow-up which I personally reviewed CT LLE which also showed cortical erosions throughout the mid and hindfoot as well as soft tissue gas beginning distally in the soft tissues around the great toe and extending to the soft tissue of the dorsal and distal forefoot. as discussed with orthopedics plan for transfer to [facility] has been accepted and pending bed placement * continue vancomycin, clindamycin, meropenem * blood cultures pending NGTD * wound cultures pending * pain management with oral Tynan and IVP dilaudid * NWB (2) Osteomyelitis: Code(s): M86.9 - Osteomyelitis, unspecified Status: Acute Assessment and Plan: See Above (3) Charcot arthropathy: Code(s): M14.60 - Charcot's joint, unspecified site Status: Acute Assessment and Plan: Previous HX with workup done at [facility] transfer pending (4) DVT (deep venous thrombosis): Qualifiers: Affected thrombotic vein of extremity: peroneal Chronicity: acute DVT location: lower extremity Laterality: left Qualified Code(s): I82.452 - Acute embolism and thrombosis of left peroneal vein Code(s): I82.409 - Acute embolism and thrombosis of unspecified deep veins of unspecified lower extremity Status: Acute Assessment and Plan: venous Doppler showing left posterior tibial and peroneal veins * heparin GTT * trend labs and monitor for any signs of bleeding * patient was recent history of subdural hematoma 01/2025 (5) End-stage renal disease on hemodialysis: Code(s): N18.6 - End stage renal disease; Z99.2 - Dependence on renal dialysis Status: Acute Assessment and Plan: patient with history of end-stage renal disease on dialysis [facility] reports he is currently on a kidney transplant at [facility] * nephrology consulted and following to assist with patient's dialysis * trend labs monitor electrolytes closely * avoid nephrotoxic medications * patient dialyzed yesterday 04/14/2025 * renal diet (6) Subdural hematoma, chronic: Code(s): I62.03 - Nontraumatic chronic subdural hemorrhage Status: Acute Assessment and Plan: of note this was on 01/2025 patient was transferred to [facility] currently on heparin GTT for DVT will need very close monitoring and is being transferred back to [facility] Hospital. Plan Code status: Full code per patient DVT prophylaxis: hep gtt Stress ulcer prophylaxis: PT/OT notes: NWB Disposition: awaiting transfer to [facility] Transfer Discharge Sum: Med Medications Active and Home Medications: Home Medications amlodipine 10 mg tablet 10 mg PO DAILY 11/11/24 [History Confirmed 04/14/25] calcium acetate(phosphat bind) 667 mg capsule 667 mg PO QID 11/11/24 [History Confirmed 04/14/25] cyclobenzaprine 10 mg tablet 10 mg PO Q8H PRN restless leg(s) 11/11/24 [History Confirmed 04/14/25] furosemide 80 mg tablet 80 mg PO Q12H 11/11/24 [History Confirmed 04/14/25] hydralazine 50 mg tablet 50 mg PO TID 11/11/24 [History Confirmed 04/14/25] metoprolol succinate 25 mg tablet,extended release 24 hr 12.5 mg PO DAILY 11/11/24 [History Confirmed 09/24/25] ropinirole 0.25 mg tablet 0.25 mg PO HS 11/11/24 [History Confirmed 04/14/25] rosuvastatin 10 mg tablet 10 mg PO HS 11/11/24 [History Confirmed 04/14/25] Transfer Discharge Sum: Hosp Hospital Course Hospital course: Admission: 44-year-old male with PMH ESRD on dialysis MWF via left upper arm fistula followed by [facility] being evaluated for kidney transplant, hypertension, hyperlipidemia, CAD, anemia of chronic disease. He presents to [facility] 04/13/2025 complaining of left foot pain and swelling. A few days prior he had some swelling in his leg, he does wear compression stockings. One day prior to admission he had a ground level fall and was laying outside for about 5 hours. There is a skin tear to his right lower leg, increased swelling and blisters to his left foot. WBC 14.3, hemoglobin 10.7, INR 1.3, PTT 36.8, sodium 128, bicarb 32, BUN 62, serum creatinine 8.41, glucose 145, alkaline phosphatase 227, CRP greater than 45. Venous Doppler of the left lower extremity demonstrates left peroneal and posterior tibial vein DVT. Left foot x-ray demonstrates multiple fractures of hindfoot and tarsal bones with this placement of a calcaneal fracture fragments as well as the navicular bone, a subsequent CT of the left foot with contrast demonstrates areas of cortical destruction with surrounding abscess consistent with underlying abscess formation, infection osteomyelitis with foci of air within the soft tissue. Head CT without acute intracranial findings. He was given clindamycin, vancomycin, meropenem, started on heparin GTT. Orthopedic surgery was consulted from the ER and recommended admission under the [facility] team for antibiotics. Hospital Course: Patient had been initiated on clindamycin vancomycin and meropenem as well as a heparin drip due to venous Doppler showing a posterior tibial vein DVT in left peroneal. Patient has consult to Ortho for further evaluation follow-up CT large abscess extending throughout the surrounding soft tissues in the mid/hindfoot and extending posterior to the ankle into the distal calf. This suggests a likely subacute combination of trauma and infection multiple regions of likely osteomyelitis involving the majority of the bones the mid and hindfoot including the posterior calcaneus and distal tibia. In addition to scattered gas seen within the abscess which extends into the posterior distal calf there are numerous foci of soft tissue gas in the forefoot which raises concern for necrotizing fasciitis. Nephrology was also consulted to manage patient's ESRD/dialysis. Patient has remained NPO pending ortho possible surgical evaluation and intervention. Patient's dialysis is Saturday, plan for dialysis today. After evaluation by Orthopedics it was recommended patient go to a [facility] for higher level of care due to the extent of patient's injury as well as his already established food management aide in medical team at [facility]. Patient also likely may require vascular services due to significant DVT. Patient was transferred to [facility] with accepting physician Dr. Munoz patient transferred via EMS prior to transfer patient was evaluated in no acute distress and understood the need for higher level of care I did have long discussion with patient that due to concerns of his lower extremity he may require amputation. After patient's transfer did receive a call that his blood cultures came back with Gram-positive cocci. Patient Condition: Critical Time Spent with Patient Time attestation: Total time spent providing and/or coordinating transfer services: Total time spent: Greater than 30 minutes Exam Const: General: comfortable and no acute distress Other: A&O x3 HENMT: Ears: TM's normal bilaterally Face/Nose/Sinus: Normal nares present Mouth: Yes moist mucous membranes Eyes: General: appearance normal, both eyes and all related structures Sclera: sclerae normal Pupils: Equal, round and reactive pupils present Neck: Neck: supple and no JVD Resp: Effort & Inspection: normal respiratory effort Auscultation: clear to auscultation bilaterally Cardio: Rate: regular rate Rhythm: regular rhythm GI: Inspection: non-distended Auscultation: normal bowel sounds Skin: General skin exam: normal color Other: Multiple blood filled blister on the medial malleolus and great toe with open wound between the hallux Neuro: Cranial nerves: Yes Equal, round and reactive pupils present Motor exam (neuro): 5/5 motor strength present throughout Extrem: General: edema left Other: LLE wit severe swelling and multiple blood blisters with non-palpable pulse but present with doppler/Charcot foot noted on imaging with abscess Psych: Mental Status: mental status grossly normal Affect: normal affect DS: Data Data Completed and Pending Labs on day of discharge: Labs from last 24 hours 04/15/25 04/15/25 22:31 15:29 APTT 67.9 H 58.5 H C-Reactive Protein 29.7 H Preliminary micro results at discharge 04/13/25 20:34 Blood Culture - Preliminary Blood Imaging Radiologist's impression: Radiology Results: ITS Impressions Tibia/Fibula X-Ray 04/13/25 17:52 IMPRESSION: 1: NO ACUTE BONE OR JOINT ABNORMALITY IDENTIFIED. Foot X-Ray 04/13/25 18:03 Impression: 1: Multiple fractures of the hindfoot and tarsal bones with associated displacement of the calcaneal fracture fragments as well as the navicular bone. These findings may be posttraumatic, although underlying infection should be considered in the appropriate clinical setting. Head CT 04/13/25 20:09 IMPRESSION: 1. No acute intracranial findings. Venous Doppler Study 04/13/25 21:59 IMPRESSION: 1: Deep venous thrombosis of the left peroneal and posterior tibial veins. Foot CT 04/14/25 08:27 IMPRESSION: 1. No malalignment and extensive osseous destructive changes including both fractures/fragmentation of the bones and more erosive appearing osteolysis in the left mid and hindfoot. Appearance similar to advanced Charcot joint although no such changes are seen at the contralateral right foot and there is also a large abscess extending throughout the surrounding soft tissues in the mid/hindfoot and extending posterior to the ankle into the distal calf. This suggests a likely subacute combination of trauma and infection multiple regions of likely osteomyelitis involving the majority of the bones the mid and hindfoot including the posterior calcaneus and distal tibia. 2. In addition to scattered gas seen within the abscess which extends into the posterior distal calf there are numerous foci of soft tissue gas in the forefoot which raises concern for necrotizing fasciitis which is ultimately a clinical diagnosis. Chest X-Ray 04/14/25 09:35 IMPRESSION: 1. No acute cardiopulmonary findings given portable technique. Additional Comments Additional comments: -Patient's previous records reviewed on admission -ER notes reviewed in detail on admission -discussed all findings and current treatment plan with patient/Family/POA -Consultations reviewed for recommendations -Patient's disposition for safe discharge discussed with nurse case manager -radiology imaging, EKG and test results personally reviewed and interpreted unless otherwise specified Dictation performed by [employer] direct speech recognition software, therefore strapping machine tender variants and typographical errors may occur.
== END 2025-04-16 00:35 | disposition short-term general hospital (02) | DRG 557 ==
LOC: ANHED 04-14 00:26 → ANH3MEDSUR 04-14 00:50
PROVIDERS: Internal Medicine; Internal Medicine Nephrology; Nurse Practitioner Family; Student in an Organized Health Care Education/Training Program; Admitting Provider General Practice; Emergency Provider Physician Assistant; PCP Internal Medicine; Visit Provider Nurse Practitioner Family
DX: M72.6 Necrotizing fasciitis (principal); E43 Unspecified severe protein-calorie malnutrition; N18.6 End stage renal disease; I62.03 Nontraumatic chronic subdural hemorrhage; R78.81 Bacteremia; M86.9 Osteomyelitis, unspecified; I12.0 Hypertensive chronic kidney disease with stage 5 chronic kidney disease or end stage renal disease; I82.452 Acute embolism and thrombosis of left peroneal vein; I82.442 Acute embolism and thrombosis of left tibial vein; L02.612 Cutaneous abscess of left foot; I25.10 Atherosclerotic heart disease of native coronary artery without angina pectoris; M14.672 Charcot's joint, left ankle and foot; D63.1 Anemia in chronic kidney disease; E78.5 Hyperlipidemia, unspecified; Z99.2 Dependence on renal dialysis; Z95.5 Presence of coronary angioplasty implant and graft; Z68.30 Body mass index [BMI] 30.0-30.9, adult
CPT/HCPCS: 36415; 70450; 71045; 73590; 73620; 73701; 80048; 80053; 80202; 82550; 83605; 83735; 84100; 85025; 85027; 85610; 85652; 85730; 86140; 86706; 87040; 87070; 87075; 87186; 87205; 87340; 87641; 93971; 96365; 96367; 96375; 99285; A9270; G0257; G0378; J1644; J2185; J2405; J3373; J7030; Q5105; Q9967